=== PATIENT | female | born 1985 | race Caucasian/White ===

== ENCOUNTER 2021-03-14 18:05 | Inpatient (IN) | payer OTHER, SELFPAY ==
--- NOTE | ~2021-03-14 | XR_ITS ---
EXAMINATION: XR CHEST CLINICAL INFORMATION: Medical clearance. COMPARISON: None TECHNIQUE: 2 views of the chest were obtained. FINDINGS: No significant abnormality is noted involving the heart, lungs, mediastinum, bony thorax or soft tissues. XR/XR chest 2V IMPRESSION: Unremarkable examination.
[2021-03-14] MEDS: Benztropine Mesylate 1 MG TABLET PO (20:30)
[2021-03-14] MEDS: OXcarbazepine 300 MG TABLET PO (20:30)
[2021-03-14] MEDS: QUEtiapine Fumarate 100 MG TABLET PO (20:30)
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
[2021-03-14] MEDS: Bacitracin Oint 14 GM TUBE 1 APPL TOPICAL (22:12)
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
[2021-03-14 22:59] VITALS: BP 126/76; PULSE 80
[2021-03-14] MEDS: Doxazosin Mesylate 2 MG TABLET PO (22:59)
[2021-03-15] MEDS: hydrOXYzine HCL 50 MG TABLET PO ×2 (04:53→15:49)
[2021-03-15 05:45] VITALS: BP 134/87; PULSE 95; RESP 18; TEMP 36.4; O2SAT 98
[2021-03-15] MEDS: Omeprazole 20 MG CAPSULE.DR PO (06:11)
[2021-03-15] MEDS: LORazepam 0.5 MG TABLET PO (06:13)
[2021-03-15] MEDS: OXcarbazepine 300 MG TABLET PO ×2 (08:22→19:37)
[2021-03-15] MEDS: Venlafaxine HCl ER 150 MG CAP.ER.24H PO (08:22)
[2021-03-15 08:23] LABS: Estimated Average Glucose 82 mg/dL; Hemoglobin A1c % 4.5 %
[2021-03-15] MEDS: Benztropine Mesylate 1 MG TABLET PO ×2 (08:23→19:36)
[2021-03-15] MEDS: QUEtiapine Fumarate 100 MG TABLET PO ×3 (08:23→19:37)
[2021-03-15] MEDS: ARIPiprazole 20 MG TABLET PO (08:23)
[2021-03-15 08:29] LABS: Alanine Aminotransferase 28 U/L (0-31); Albumin Level 3.9 g/dL (3.5-5.0); Alkaline Phosphatase 81 U/L (39-117); Aspartate Amino Transferase 27 U/L (5-31); Bilirubin Direct 0.2 mg/dL (0.0-0.5); Bilirubin Total 0.5 mg/dL (0.0-1.0); Cholesterol 196 mg/dL; HDL Cholesterol 64 mg/dL; LDL Cholesterol Calculated 95 mg/dl; Total Protein 6.4 g/dL (6.5-8.0); Triglycerides 186 mg/dL
[2021-03-15 08:52] LABS: Free T4 (Free Thyroxine) 0.66 ng/dL (0.71-1.85); Thyroid Stimulating Hormone 1.14 uIU/mL (0.32-4.0)
[2021-03-15 09:08] LABS: Folate 12.3 ng/mL (> or = 4.0); Vitamin B12 342 pg/mL (200-900)
[2021-03-15] MEDS: Bacitracin Oint 14 GM TUBE 1 APPL TOPICAL ×2 (11:02→19:38)
[2021-03-15] MEDS: Ibuprofen 400 MG TABLET PO (17:01)
--- NOTE | 2021-03-15 17:20 | P.PNPSI_ITS ---
Subjective Subjective Date of Service: 03/15/21 Reason For Visit: Major Depressive Disorder Subjective Notes: Conditional Voluntary Healthcare Proxy: No Guardianship: No Medical Problems Affecting Mental Status: No Interim History: Safety is hard for me sometimes It can just happen. Pt forthcoming in discussing her depression. Reports sleep, appetite disruption. Discussed gastric bypass procedure and loss of ~70 lbs with resolution of MARIA TERESA and some sx of HTN. Discussed some increase in sx since this process and some decrease in sx-overall no marked increase or decrease. Review of grounding skills with use of prn medications to assist in SIBS mgt. Review of efficacy of low dose Risperdal-will offer prn for pt to trial to assess efficacy. Will begin medical clearance for ECT plan which pt reports has been significantly effective in the past. Medication Compliance: Yes Side effects from medications: No Attending Groups: Intermittent Review of Systems Acute medical concerns: No Medical Review of Systems: unchanged Review of Systems Reports behavioral changes Psychiatric: Reports abnormal sleep pattern, Reports anxiety, Reports behavioral changes, Reports change in appetite, Reports depression, Reports difficulty concentrating, Reports hopelessness, Reports irritability, Reports anhedonia, Reports mood swings, Reports panic attacks, Reports suicidal ideation and Repo rts other (SIBS-scratching, superficial cutting) Mental Status Exam Mental Status Exam Patient Appearance: Appropriate Patient Orientation: Person, Place, Time and Situation Level of Consciousness: Awake and Alert Patient Behavior: Appropriate, Guarded, Talkative, Cooperative, Suspicious, Anxious, Fearful and Good Eye Contact Mood Description: Depressed and Anxious Affect Description: Flat Patient Cognition Impaired: No Ability to Follow Directions: Good Speech Pattern: Spontaneous Speech and Soft-Spoken Memory Description: Episodic Impaired Hallucinations: None Delusions: Not Present Perceptual Disturbances: Depersonalization and Derealization Thought Process: Rumination and Goal Oriented (I know ECT has worked for me in the past.) Thought Content: positive for P[place], positive for Goal Oriented, positive for Perseveration and positive for Suicidal Ideation (SIBS) Depressive Symptoms: Increased Anxiety, Insomnia, Diff. Making Decisions, Difficulty Sleeping, Changes in Appetite, Significant Weight Loss (s/p bariatric surgery), Loss of Int. in Activity, Feelings of Worthlessness, Hopelessness, Unhappiness, Increased Fatigue, Low Self Esteem, Loss of Energy and Difficulty Concentrating Judgement: Fair Diagnostics Vital Signs (24Hr): Vital Signs - 24 hr 03/14/21 22:59 12/03/21 05:45 Temperature 97.6 F Pulse Rate 80 95 Respiratory Rate 18 Blood Pressure 126/76 134/87 Pulse Oximetry 98 Labs Labs: Laboratory Results - last 48 hr 03/15/21 03/15/21 03/15/21 07:48 07:48 07:48 Estimat Average Glucose 82 Hemoglobin A1c % 4.5 Magnesium 2.0 Total Bilirubin 0.5 Direct Bilirubin 0.2 AST 27 ALT 28 Alkaline Phosphatase 81 Total Protein 6.4 L Albumin 3.9 Triglycerides 186 Cholesterol 196 LDL Cholesterol, Calc 95 HDL Cholesterol 64 Vitamin B12 342 Folate 12.3 TSH 1.14 Free T4 0.66 L Medications Medications Current Medications Acetaminophen (Acetaminophen 325 Mg Tablet) 650 mg PO Q6H PRN PRN Reason: Headache/Pain Mild Scale (1-3) Al Hydroxide/Mg Hydroxide (Magnesium Hydrox/Alum Hydrox 30 Ml Oral.Susp) 30 ml PO Q6H PRN PRN Reason: Heartburn/Nausea Aripiprazole (Aripiprazole 20 Mg Tablet) 20 mg PO DAILY COUNTS INCLUDE 234 BEDS AT THE [facility] Last Admin: 03/15/21 08:23 Dose: 20 mg Documented by: Bacitracin (Bacitracin Oint 14 Gm Tube) 1 appl TOPICAL BID JEFFREY; Protocol Last Admin: 03/15/21 11:02 Dose: 1 appl Documented by: Benztropine Mesylate (Benztropine Mesylate 1 Mg Tablet) 1 mg PO BID JEFFREY Last Admin: 03/15/21 08:23 Dose: 1 mg Documented by: Calcium Carbonate (Calcium Carbonate 500 Mg Tablet) 500 mg PO TID PRN PRN Reason: heartburn Doxazosin Mesylate (Doxazosin Mesylate 2 Mg Tablet) 2 mg PO BEDTIME JEFFREY; Protocol Last Admin: 03/14/21 22:59 Dose: 2 mg Documented by: Hydroxyzine HCl (Hydroxyzine Hcl 50 Mg Tablet) 50 mg PO Q6H PRN PRN Reason: Anxiety Last Admin: 03/15/21 15:49 Dose: 50 mg Documented by: Ibuprofen (Ibuprofen 400 Mg Tablet) 400 mg PO Q8H PRN PRN Reason: mild-mod pain Last Admin: 03/15/21 17:01 Dose: 400 mg Documented by: Lorazepam (Lorazepam 0.5 Mg Tablet) 0.5 mg PO Q8H PRN PRN Reason: agitation Last Admin: 03/15/21 06:13 Dose: 0.5 mg Documented by: Magnesium Hydroxide (Milk Of Magnesia 30 Ml Oral.Susp) 30 ml PO DAILY PRN PRN Reason: Constipation Omeprazole (Omeprazole 20 Mg Capsule.Dr) 20 mg PO DAILY@0630 COUNTS INCLUDE 234 BEDS AT THE [facility] Last Admin: 03/15/21 06:11 Dose: 20 mg Documented by: Ondansetron HCl (Ondansetron Odt 4 Mg Tab.Rapdis) 4 mg TRANSLINGU Q8H PRN PRN Reason: nausea Oxcarbazepine (Oxcarbazepine 300 Mg Tablet) 300 mg PO BID COUNTS INCLUDE 234 BEDS AT THE [facility] Last Admin: 03/15/21 08:22 Dose: 300 mg Documented by: Quetiapine Fumarate (Quetiapine Fumarate 100 Mg Tablet) 100 mg PO TID COUNTS INCLUDE 234 BEDS AT THE [facility] Last Admin: 03/15/21 14:35 Dose: 100 mg Documented by: Quetiapine Fumarate (Quetiapine Fumarate 50 Mg Tablet) 50 mg PO Q6H PRN PRN Reason: agitation Trazodone HCl (Trazodone Hcl 100 Mg Tablet) 100 mg PO BEDTIME PRN PRN Reason: Insomnia Venlafaxine HCl (Venlafaxine Hcl Er 150 Mg Cap.Er.24h) 150 mg PO DAILY COUNTS INCLUDE 234 BEDS AT THE [facility] Last Admin: 03/15/21 08:22 Dose: 150 mg Documented by: Zinc Acetate/Diphenhydramine (Diphenhydramine Hcl 2 % Cream 28 Gm Tube) 1 appl TOPICAL BID PRN PRN Reason: Itching Allergies Allergies Allergy/AdvReac Type Severity Reaction Status Date / Time coconut Allergy Severe Anaphylaxis Verified 03/14/21 22:10 nut - unspecified [NUTS] Allergy Severe HIVES, Verified 03/14/21 23:05 DIFF BREATHING, THROAT SWELLS peanut Allergy Severe Anaphylaxis Verified 03/14/21 22:10 lactose [LACTOSE] Allergy Unknown ABD PAIN Verified 03/14/21 23:05 Assessment & Plan Assessment & Plan (1) MDD (major depressive disorder), recurrent severe, without psychosis: Status: Acute Code(s): F33.2 - Major depressive disorder, recurrent severe without psychotic features (2) TREY (generalized anxiety disorder): Status: Acute Code(s): F41.1 - Generalized anxiety disorder (3) Post traumatic stress disorder (PTSD): Status: Acute Code(s): F43.10 - Post-traumatic stress disorder, unspecified Assessment and Plan: 35 y.o. Who carries a dx of PTSD, MDD recurrent, TREY. She is a lateral transfer from [facility], admitted on 02/18/21 for depression, anxiety, and SI. Recent perceptual disturbances of 's image and voice, he from suicide 2 yr ago. Plan: Pt is here for ECT. Med reconciliation done. Pt reports she is supposed to be on doxazosin 4 mg at bedtime and 2 mg QD (this was her dose of prazosin and it was switched to doxazosin at [facility], however discharge listed doxazosin as 1 mg QHS). Will increase doxazosin to 2 mg QHS and defer to primary team for adjustments. Pt reports she is still on trileptal 300 mg BID but this was not on [facility] discharge. Pt also reports benefit on ativan 0.5 mg BID PRN for agitation, anxiety- will re-start, as this helps when pt has urges to self harm in context of anxiety and agitation. Monitor response to medications. Monitor for safety in the milieu. Discharge on stabilization. Patient seen. Chart reviewed. Discussed with team. Obtain collateral contact info?as needed 03/15/21: Increase Doxazosin to 4 mg HS. Monitor for SE. Pt asks to have 2 mg return to daytime dosing-will titrate gradually. Risperdal 0.25 mg bid prn grounding assist to manage SIBS. Medical clearance for ECT ordered-hospitalist, Chest xray, EKG, CMP, CBC Pt will move closer to nursing station as she has been struggling with her safety and working on a plan of care with team to remain safe while keeping as much of her own control as possible. I spent 45 minutes with the patient and/or on the patient floor today, greater than?50% of which was spent counseling/coordinating care. Patient educated on: diagnosis, medication risk/benefits, therapeutic strategies and medical condition (ECT clearance requirements) Informed Consent: understands Reason for contiued inpatient stay Substantial Risk for: harm to self, inability to function and rapid decompensation
[2021-03-15 19:36] VITALS: BP 123/80; PULSE 83
[2021-03-15] MEDS: Doxazosin Mesylate 2 MG TABLET 4 MG PO (19:36)
[2021-03-15] MEDS: traZODone HCL 100 MG TABLET PO (20:23)
[2021-03-16] MEDS: QUEtiapine Fumarate 100 MG TABLET PO ×3 (08:00→20:06)
[2021-03-16] MEDS: Omeprazole 20 MG CAPSULE.DR PO (08:00)
[2021-03-16] MEDS: Venlafaxine HCl ER 150 MG CAP.ER.24H PO (08:00)
[2021-03-16] MEDS: Benztropine Mesylate 1 MG TABLET PO ×2 (08:00→20:07)
[2021-03-16] MEDS: OXcarbazepine 300 MG TABLET PO ×2 (08:00→20:06)
[2021-03-16] MEDS: ARIPiprazole 20 MG TABLET PO (08:00)
[2021-03-16] MEDS: LORazepam 0.5 MG TABLET PO (08:00)
[2021-03-16 08:08] LABS: MANUAL DIFF FLAG NO
[2021-03-16 08:13] LABS: Basophils Absolute Auto 0.1 X10*3/uL (0.0-0.2); Basophils Percent Auto 0.7 % (0-2); Eosinophils Absolute Auto 0.2 X10*3/uL (0.0-0.4); Eosinophils Percent Auto 3.5 % (0-4); Hematocrit 45.8 % (37.0-47.0); Hemoglobin 14.8 g/dl (12.0-16.0); Imm Gran Abs Auto 0.01 X10*3/uL (0.00-0.03); Imm Gran Pct Auto 0.1 % (0.0-0.4); Lymphocytes Absolute Auto 2.6 X10*3/uL (1.2-4.9); Lymphocytes Percent Auto 37.8 % (20-40); Mean Corpuscular HGB Conc 32.3 g/dl (31.0-35.0); Mean Corpuscular Hemoglobin 30.4 pg (27.0-33.0); Mean Platelet Volume 10.6 fL (9.4-12.3); Monocytes Absolute Auto 0.6 X10*3/uL (0.1-1.2); Monocytes Percent Auto 8.9 % (2-11); Neutrophils Absolute Auto 3.4 x10*3/uL (2.0-8.3); Platelet Count 297 X10*3/uL (160-400); Red Blood Count 4.87 X10*6/uL (4.20-5.50); Red Cell Distribution Width 13.2 % (11.0-16.0); White Blood Count 6.9 X10*3/uL (4.8-10.8)
[2021-03-16 08:37] LABS: Alanine Aminotransferase 25 U/L (0-31); Alkaline Phosphatase 79 U/L (39-117); Anion Gap 13 (12-20); Aspartate Amino Transferase 25 U/L (5-31); Bilirubin Total 0.4 mg/dL (0.0-1.0); Blood Urea Nitrogen 7 mg/dL (9-16); Calcium 9.7 mg/dL (8.4-10.2); Carbon Dioxide 29 mmol/L (22-29); Chloride 106 mmol/L (96-108); Estimated Glomerular Filt Rate > 60; Glucose Random 85 mg/dL (60-115); Sodium 144 mmol/L (135-145); Total Protein 6.7 g/dL (6.5-8.0)
--- NOTE | 2021-03-16 10:32 | P.PNPSI_ITS ---
Subjective Subjective Date of Service: 03/16/21 Reason For Visit: Major Depressive Disorder Interim History: Patient seen and discussed with team. Patient evaluated this morning and upon interview she reports Im having a hard time. Says ECT is starting on Thursday. Endorses urges for self harm, recent superficial cutting, cut L arm and reopened L inner ankle cut, told the RN and had them put a bandaid on it. Reports PRN Ativan chills me out but she has not utilized PRN risperdal yet, which I advised her to trial. Sleep was okay last night. 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 Daytime energy is low. Per pt, I miss sheldon, felt the staff talked to her more, discussed that she may need time to adjust to a new milieu. Says she has been feeling really nauseous today, attributes this to my anxiety, as this has happened before, also says she vomited. Has PRN zofran, says it seemed to help. She endorses urges to self harm and says I feel like there?s a lot of opportunity to not be safe, however denies specific plans or intent and is willing to utilize PRNs.? Medication Compliance: Yes Side effects from medications: No Attending Groups: Yes Review of Systems Acute medical concerns: No Medical Review of Systems: unchanged Mental Status Exam Mental Status Exam Narrative: Patient Appearance:?Appropriate Patient Orientation:?Person, Place, Time and Situation Level of Consciousness:?Awake and Alert Patient Behavior:?Appropriate, Guarded, Talkative, Cooperative, Suspicious, Anxious, Fearful and Good Eye Contact Mood Description:?Depressed and Anxious Affect Description:?Flat Patient Cognition Impaired:?No Ability to Follow Directions:?Good Speech Pattern:?Spontaneous Speech and Soft-Spoken Memory Description:?Episodic Impaired Hallucinations:?None Delusions:?Not Present Perceptual Disturbances:?Depersonalization and Derealization Thought Process:?Rumination and Goal Oriented (I know ECT has worked for me in the past.) Thought Content:?positive for [place], positive for Goal Oriented, positive for Perseveration and positive for Suicidal Ideation (SIBS) Depressive Symptoms:?Increased Anxiety, Insomnia, Diff. Making Decisions, Difficulty Sleeping, Changes in Appetite, Significant Weight Loss (s/p bariatric surgery), Loss of Int. in Activity, Feelings of Worthlessness, Hopelessness, Unhappiness, Increased Fatigue, Low Self Esteem, Loss of Energy and Difficulty Concentrating Judgement:?Fair Diagnostics Vital Signs (24Hr): Vital Signs - 24 hr 03/16/21 19:45 03/16/21 20:06 Temperature 97.4 F Pulse Rate 100 100 Blood Pressure 112/72 112/72 Pulse Oximetry 100 Labs Results: 03/16/21 07:51 03/16/21 07:51 Labs: Laboratory Results - last 48 hr 03/15/21 03/15/21 03/16/21 07:48 07:48 07:51 WBC 6.9 RBC 4.87 Hgb 14.8 Hct 45.8 MCV 94.0 MCH 30.4 MCHC 32.3 RDW 13.2 Plt Count 297 MPV 10.6 Immature Gran % (Auto) 0.1 Neut % (Auto) 49.0 Lymph % (Auto) 37.8 [place] % (Auto) 8.9 Eos % (Auto) 3.5 Baso % (Auto) 0.7 Lymph # (Auto) 2.6 [place] # (Auto) 0.6 Eos # (Auto) 0.2 Baso # (Auto) 0.1 Abs Immat Gran (auto) 0.01 Absolute Neuts (auto) 3.4 Absolute Nucleated RBC 0.000 Nucleated RBC % (auto) 0.0 Sodium Potassium Chloride Carbon Dioxide Anion Gap BUN Creatinine Estim Creat Clear Calc Estimated GFR Random Glucose Calcium Total Bilirubin AST ALT Alkaline Phosphatase Total Protein Albumin Vitamin B12 342 Folate 12.3 TSH 1.14 Free T4 0.66 L 03/16/21 07:51 WBC RBC Hgb Hct MCV MCH MCHC RDW Plt Count MPV Immature Gran % (Auto) Neut % (Auto) Lymph % (Auto) [place] % (Auto) Eos % (Auto) Baso % (Auto) Lymph # (Auto) [place] # (Auto) Eos # (Auto) Baso # (Auto) Abs Immat Gran (auto) Absolute Neuts (auto) Absolute Nucleated RBC Nucleated RBC % (auto) Sodium 144 Potassium 4.0 Chloride 106 Carbon Dioxide 29 Anion Gap 13 BUN 7 L Creatinine 0.82 Estim Creat Clear Calc TNP Estimated GFR > 60 Random Glucose 85 Calcium 9.7 Total Bilirubin 0.4 AST 25 ALT 25 Alkaline Phosphatase 79 Total Protein 6.7 Albumin 4.0 Vitamin B12 Folate TSH Free T4 Imaging Radiology Impressions: ITS Impressions Chest X-Ray 03/15/21 19:02 IMPRESSION: Unremarkable examination. Medications Medications Current Medications Acetaminophen (Acetaminophen 325 Mg Tablet) 650 mg PO Q6H PRN PRN Reason: Headache/Pain Mild Scale (1-3) Last Admin: 03/16/21 20:08 Dose: 650 mg Documented by: Al Hydroxide/Mg Hydroxide (Magnesium Hydrox/Alum Hydrox 30 Ml Oral.Susp) 30 ml PO Q6H PRN PRN Reason: Heartburn/Nausea Aripiprazole (Aripiprazole 20 Mg Tablet) 20 mg PO DAILY [facility] Last Admin: 03/16/21 08:00 Dose: 20 mg Documented by: Bacitracin (Bacitracin Oint 14 Gm Tube) 1 appl TOPICAL BID [facility]; Protocol Last Admin: 03/16/21 22:03 Dose: Not Given Documented by: Benztropine Mesylate (Benztropine Mesylate 1 Mg Tablet) 1 mg PO BID [facility] Last Admin: 03/16/21 20:07 Dose: 1 mg Documented by: Calcium Carbonate (Calcium Carbonate 500 Mg Tablet) 500 mg PO TID PRN PRN Reason: heartburn Doxazosin Mesylate (Doxazosin Mesylate 2 Mg Tablet) 4 mg PO BEDTIME [facility]; Protocol Last Admin: 03/16/21 20:06 Dose: 4 mg Documented by: Hydroxyzine HCl (Hydroxyzine Hcl 50 Mg Tablet) 50 mg PO Q6H PRN PRN Reason: Anxiety Last Admin: 03/16/21 18:54 Dose: 50 mg Documented by: Ibuprofen (Ibuprofen 400 Mg Tablet) 400 mg PO Q8H PRN PRN Reason: mild-mod pain Last Admin: 03/16/21 13:23 Dose: 400 mg Documented by: Lorazepam (Lorazepam 0.5 Mg Tablet) 0.5 mg PO Q8H PRN PRN Reason: agitation Last Admin: 03/17/21 06:04 Dose: 0.5 mg Documented by: Magnesium Hydroxide (Milk Of Magnesia 30 Ml Oral.Susp) 30 ml PO DAILY PRN PRN Reason: Constipation Omeprazole (Omeprazole 20 Mg Capsule.Dr) 20 mg PO DAILY@0630 [facility] Last Admin: 03/17/21 06:04 Dose: 20 mg Documented by: Ondansetron HCl (Ondansetron Odt 4 Mg Tab.Rapdis) 4 mg TRANSLINGU Q8H PRN PRN Reason: nausea Last Admin: 03/16/21 14:22 Dose: 4 mg Documented by: Oxcarbazepine (Oxcarbazepine 300 Mg Tablet) 300 mg PO BID [facility] Last Admin: 03/16/21 20:06 Dose: 300 mg Documented by: Quetiapine Fumarate (Quetiapine Fumarate 100 Mg Tablet) 100 mg PO TID [facility] Last Admin: 03/16/21 20:06 Dose: 100 mg Documented by: Quetiapine Fumarate (Quetiapine Fumarate 50 Mg Tablet) 50 mg PO Q6H PRN PRN Reason: agitation Risperidone (Risperidone 0.25 Mg Tablet) 0.25 mg PO BID PRN PRN Reason: assistance with grounding Last Admin: 03/16/21 16:08 Dose: 0.25 mg Documented by: Trazodone HCl (Trazodone Hcl 100 Mg Tablet) 100 mg PO BEDTIME PRN PRN Reason: Insomnia Last Admin: 03/16/21 20:13 Dose: 100 mg Documented by: Venlafaxine HCl (Venlafaxine Hcl Er 150 Mg Cap.Er.24h) 150 mg PO DAILY [facility] Last Admin: 03/16/21 08:00 Dose: 150 mg Documented by: Zinc Acetate/Diphenhydramine (Diphenhydramine Hcl 2 % Cream 28 Gm Tube) 1 appl TOPICAL BID PRN PRN Reason: Itching Allergies Allergies Allergy/AdvReac Type Severity Reaction Status Date / Time coconut Allergy Severe Anaphylaxis Verified 03/14/21 22:10 nut - unspecified [NUTS] Allergy Severe HIVES, Verified 03/14/21 23:05 DIFF BREATHING, THROAT SWELLS peanut Allergy Severe Anaphylaxis Verified 03/14/21 22:10 Assessment & Plan Assessment & Plan (1) TREY (generalized anxiety disorder): Status: Acute Code(s): F41.1 - Generalized anxiety disorder (2) MDD (major depressive disorder), recurrent severe, without psychosis: Status: Acute Code(s): F33.2 - Major depressive disorder, recurrent severe without psychotic features Assessment and Plan: 35 y.o. Who carries a dx of PTSD, MDD recurrent, TREY. She is a lateral transfer from [facility], admitted on 02/18/21 for depression, anxiety, and SI. Recent perceptual disturbances of 's image and voice, he from suicide 2 yr ago. Plan: Pt is here for ECT. Med reconciliation done. Pt reports she is supposed to be on doxazosin 4 mg at bedtime and 2 mg QD (this was her dose of prazosin and it was switched to doxazosin at [facility], however discharge listed doxazosin as 1 mg QHS). Will increase doxazosin to 2 mg QHS and defer to primary team for adjustments. Pt reports she is still on trileptal 300 mg BID but this was not on [facility] discharge. Pt also reports benefit on ativan 0.5 mg BID PRN for agitation, anxiety- will re-start, as this helps when pt has urges to self harm in context of anxiety and agitation. Monitor response to medications. Monitor for safety in the milieu. Discharge on stabilization. Patient seen. Chart reviewed. Discussed with team. Obtain collateral contact info?as needed 03/15/21: Increase Doxazosin to 4 mg HS. Monitor for SE. Pt asks to have 2 mg return to daytime dosing-will titrate gradually. Risperdal 0.25 mg bid prn grounding assist to manage SIBS. Medical clearance for ECT ordered-hospitalist, Chest xray, EKG, CMP, CBC Pt will move closer to nursing station as she has been struggling with her safety and working on a plan of care with team to remain safe while keeping as much of her own control as possible. Weekend Coverage: Pt continues to endorse urges for self harm and had incident of superficial cutting this morning, told staff physical therapist after the event and had it dressed. Reminded pt that she has PRN riserpdal ordered and pt is willing to utilize. Will monitor for benefit. I spent minutes with the patient and/or on the patient floor today, greater than?50% of which was spent counseling/coordinating care. Reason for contiued inpatient stay Substantial Risk for: harm to self and med/psych decompensation
[2021-03-16] MEDS: hydrOXYzine HCL 50 MG TABLET PO ×2 (11:37→18:54)
[2021-03-16] MEDS: Bacitracin Oint 14 GM TUBE 1 APPL TOPICAL (11:38)
[2021-03-16] MEDS: Ibuprofen 400 MG TABLET PO (13:23)
[2021-03-16] MEDS: Ondansetron ODT 4 MG TAB.RAPDIS TRANSLINGU (14:22)
[2021-03-16] MEDS: risperiDONE 0.25 MG TABLET PO (16:08)
--- NOTE | 2021-03-16 16:21 | HO.HSGERICON ---
History of Present Illness Data of Consult Service Date: 03/16/21 Requesting physician: Elaine Mckeon Primary Care Provider: Unknown Physician HPI Reason for consult: preop eval for ECT This is a 35-year-old female with history of anxiety, depression, PTSD admitted to for ECT. The hospitalists were asked to see her in consultation for preop evaluation in preparation for her ECT. Patient states she underwent ECT treatments previously in 2017. At that time she did have some memory loss, no other adverse outcomes. She denies any history of heart or lung disease. She denies any chest pain or shortness of breath with her ADLs. She has had no adverse reaction to anesthesia, denies history of seizures. She is interested in pursuing ECT treatments in the management of her anxiety/depression. Review of Systems Review of Systems: Yes all other systems are reviewed and are negative Constitutional: Constitutional: Denies chills and Denies fever(s) Cardiovascular: Cardiovascular: Denies chest pain, Denies palpitations, Denies dyspnea and Denies dyspnea on exertion Respiratory: Respiratory: Denies cough, Denies dyspnea and Denies dyspnea on exertion Gastrointestinal: Gastrointestinal: Denies abdominal pain and Reports nausea Endocrine: Endocrine: Denies palpitations [facility] Medical History (Updated 03/16/21 @ 16:28 by KAYDEN Jeter) TREY (generalized anxiety disorder) GERD (gastroesophageal reflux disease) HTN (hypertension) MDD (major depressive disorder), recurrent severe, without psychosis MARIA TERESA (obstructive sleep apnea) Post traumatic stress disorder (PTSD) Functional capacity: independent ambulation Family History (Updated 03/16/21 @ 16:26 by KAYDEN Jeter) Mother Heart disease Surgical History (Updated 03/16/21 @ 16:25 by KAYDEN Jeter) H/O gastric bypass Hx of cholecystectomy Social History (Updated 03/16/21 @ 16:26 by KAYDEN Jeter) Household Members: Other Household Members Other:: 17 yo daughter Housing: Apartment Do you presently have visiting nurse or other home services: No Alcohol intake: current Alcohol intake frequency: holidays/special occasions only Patient Tobacco Use Status: Never used Tobacco Use of substances other than those prescribed or required for medical reasons: No Currently Displaying Signs/Symptoms of Drug Intoxication Withdrawal: No Have you been hit, kicked, punched, or otherwise hurt by someone within the past year? If so, by whom?: No Do you feel safe in your current relationship?: Yes Is there a partner from a previous relationship who is making you feel unsafe now?: No Are you made to feel afraid or neglected: No Advance Directives: No Advance Directives Information Provided: No Advance Directives on File: No Do you have thoughts of harming others: None Do you have a plan to hurt others: No Plan Recently lost weight without trying: No Eating poorly because of decreased appetite: No Nutrition Risks: No Nutritional Risk Patient : No : No Poor oral hygiene: No service: No Sexual orientation: Did not discuss Meds Allergies Allergy/AdvReac Type Severity Reaction Status Date / Time coconut Allergy Severe Anaphylaxis Verified 03/14/21 22:10 nut - unspecified [NUTS] Allergy Severe HIVES, Verified 03/14/21 23:05 DIFF BREATHING, THROAT SWELLS peanut Allergy Severe Anaphylaxis Verified 03/14/21 22:10 Active Medications: Current Medications Acetaminophen (Acetaminophen 325 Mg Tablet) 650 mg PO Q6H PRN PRN Reason: Headache/Pain Mild Scale (1-3) Al Hydroxide/Mg Hydroxide (Magnesium Hydrox/Alum Hydrox 30 Ml Oral.Susp) 30 ml PO Q6H PRN PRN Reason: Heartburn/Nausea Aripiprazole (Aripiprazole 20 Mg Tablet) 20 mg PO DAILY [facility] Last Admin: 03/16/21 08:00 Dose: 20 mg Documented by: Bacitracin (Bacitracin Oint 14 Gm Tube) 1 appl TOPICAL BID [facility]; Protocol Last Admin: 03/16/21 11:38 Dose: 1 appl Documented by: Benztropine Mesylate (Benztropine Mesylate 1 Mg Tablet) 1 mg PO BID [facility] Last Admin: 03/16/21 08:00 Dose: 1 mg Documented by: Calcium Carbonate (Calcium Carbonate 500 Mg Tablet) 500 mg PO TID PRN PRN Reason: heartburn Doxazosin Mesylate (Doxazosin Mesylate 2 Mg Tablet) 4 mg PO BEDTIME [facility]; Protocol Last Admin: 03/15/21 19:36 Dose: 4 mg Documented by: Hydroxyzine HCl (Hydroxyzine Hcl 50 Mg Tablet) 50 mg PO Q6H PRN PRN Reason: Anxiety Last Admin: 03/16/21 11:37 Dose: 50 mg Documented by: Ibuprofen (Ibuprofen 400 Mg Tablet) 400 mg PO Q8H PRN PRN Reason: mild-mod pain Last Admin: 03/16/21 13:23 Dose: 400 mg Documented by: Lorazepam (Lorazepam 0.5 Mg Tablet) 0.5 mg PO Q8H PRN PRN Reason: agitation Last Admin: 03/16/21 08:00 Dose: 0.5 mg Documented by: Magnesium Hydroxide (Milk Of Magnesia 30 Ml Oral.Susp) 30 ml PO DAILY PRN PRN Reason: Constipation Omeprazole (Omeprazole 20 Mg Capsule.Dr) 20 mg PO DAILY@0630 [facility] Last Admin: 03/16/21 08:00 Dose: 20 mg Documented by: Ondansetron HCl (Ondansetron Odt 4 Mg Tab.Rapdis) 4 mg TRANSLINGU Q8H PRN PRN Reason: nausea Last Admin: 03/16/21 14:22 Dose: 4 mg Documented by: Oxcarbazepine (Oxcarbazepine 300 Mg Tablet) 300 mg PO BID [facility] Last Admin: 03/16/21 08:00 Dose: 300 mg Documented by: Quetiapine Fumarate (Quetiapine Fumarate 100 Mg Tablet) 100 mg PO TID [facility] Last Admin: 03/16/21 16:08 Dose: 100 mg Documented by: Quetiapine Fumarate (Quetiapine Fumarate 50 Mg Tablet) 50 mg PO Q6H PRN PRN Reason: agitation Risperidone (Risperidone 0.25 Mg Tablet) 0.25 mg PO BID PRN PRN Reason: assistance with grounding Last Admin: 03/16/21 16:08 Dose: 0.25 mg Documented by: Trazodone HCl (Trazodone Hcl 100 Mg Tablet) 100 mg PO BEDTIME PRN PRN Reason: Insomnia Last Admin: 03/15/21 20:23 Dose: 100 mg Documented by: Venlafaxine HCl (Venlafaxine Hcl Er 150 Mg Cap.Er.24h) 150 mg PO DAILY [facility] Last Admin: 03/16/21 08:00 Dose: 150 mg Documented by: Zinc Acetate/Diphenhydramine (Diphenhydramine Hcl 2 % Cream 28 Gm Tube) 1 appl TOPICAL BID PRN PRN Reason: Itching Home Medications Medication Instructions Recorded Confirmed Last Taken Type trazodone 100 mg PO BEDTIME 03/15/21 03/15/21 Unknown History Results Labs CBC and Chem 7: 03/16/21 07:51 03/16/21 07:51 Labs: Laboratory Results - last 24 hr 03/16/21 03/16/21 07:51 07:51 MCV 94.0 MCH 30.4 MCHC 32.3 RDW 13.2 Plt Count 297 MPV 10.6 Immature Gran % (Auto) 0.1 Neut % (Auto) 49.0 Lymph % (Auto) 37.8 [place] % (Auto) 8.9 Eos % (Auto) 3.5 Baso % (Auto) 0.7 Lymph # (Auto) 2.6 [place] # (Auto) 0.6 Eos # (Auto) 0.2 Baso # (Auto) 0.1 Abs Immat Gran (auto) 0.01 Absolute Neuts (auto) 3.4 Absolute Nucleated RBC 0.000 Nucleated RBC % (auto) 0.0 Anion Gap 13 Estim Creat Clear Calc TNP Estimated GFR > 60 Random Glucose 85 Calcium 9.7 Total Bilirubin 0.4 AST 25 ALT 25 Alkaline Phosphatase 79 Total Protein 6.7 Albumin 4.0 Imaging Radiologist's Impressions: Impressions Chest X-Ray 03/15/21 19:02 IMPRESSION: Unremarkable examination. Assessment and Plan (1) TREY (generalized anxiety disorder): Status: Acute (2) MDD (major depressive disorder), recurrent severe, without psychosis: Status: Acute This is a 35-year-old female with history of anxiety, depression, PTSD, morbid obesity status post gastric bypass surgery who presents to for ECT Labs reviewed. No history of cardiopulmonary disease, seizure or adverse outcomes with anesthesia. There is no obvious contraindication to proceeding with ECT if no abnormalities seen on EKG. EKG ordered, will review when completed. Thank you for allowing us to participate in the care of this patient. we will follow along with you attending: dr. ramírez Physical Exam Vital Signs: Last Vital Signs Temp 97.6 F 03/15/21 05:45 Pulse 83 03/15/21 19:36 Resp 18 03/15/21 05:45 BP 123/80 03/15/21 19:36 Pulse Ox 98 03/15/21 05:45 Const Nutritional Appearance: well nourished Orientation/consciousness: patient oriented x3 HENMT Head: Yes normocephalic and Yes atraumatic Eyes Sclerae: sclerae normal Resp Effort & Inspection: normal respiratory effort and no respiratory distress Auscultation: clear to auscultation bilaterally Cardio Rate: regular rate Rhythm: regular rhythm Neuro General: patient oriented x3 Cranial nerves: Yes CN's II-XII intact bilaterally and Yes Bilaterally intact EOM present Extrem General: Yes no pedal edema Psych Attitude: cooperative
[2021-03-16 19:45] VITALS: BP 112/72; PULSE 100; TEMP 36.3; O2SAT 100
[2021-03-16 20:06] VITALS: BP 112/72; PULSE 100
[2021-03-16] MEDS: Doxazosin Mesylate 2 MG TABLET 4 MG PO (20:06)
[2021-03-16] MEDS: Acetaminophen 325 MG TABLET 650 MG PO (20:08)
[2021-03-16] MEDS: traZODone HCL 100 MG TABLET PO (20:13)
--- NOTE | 2021-03-17 | ECG_ITS ---
Test Reason : Medical clearance for ECT Blood Pressure : / mmHG Vent. Rate : 083 BPM Atrial Rate : 083 BPM P-R Int : 136 ms QRS Dur : 068 ms QT Int : 368 ms P-R-T Axes : 054 034 048 degrees QTc Int : 432 ms Normal sinus rhythm Normal ECG When compared to the previous EKG of No significant changes seen Referred By: Elaine Mckeon Electronically Signed By:Campos Jonas
[2021-03-17] MEDS: LORazepam 0.5 MG TABLET PO (06:04)
[2021-03-17] MEDS: Omeprazole 20 MG CAPSULE.DR PO (06:04)
[2021-03-17] MEDS: Venlafaxine HCl ER 150 MG CAP.ER.24H PO (09:53)
[2021-03-17] MEDS: ARIPiprazole 20 MG TABLET PO (09:53)
[2021-03-17] MEDS: Benztropine Mesylate 1 MG TABLET PO ×2 (09:53→22:20)
[2021-03-17] MEDS: risperiDONE 0.25 MG TABLET PO ×2 (09:53→12:06)
[2021-03-17] MEDS: QUEtiapine Fumarate 100 MG TABLET PO ×3 (09:53→22:19)
[2021-03-17] MEDS: OXcarbazepine 300 MG TABLET PO ×2 (09:53→22:20)
[2021-03-17] MEDS: Ondansetron ODT 4 MG TAB.RAPDIS TRANSLINGU ×2 (13:58→22:35)
--- NOTE | 2021-03-17 14:34 | HO.PSYCHPN ---
Subjective Subjective Date of Service: 03/17/21 Reason For Visit: Major Depressive Disorder Interim History: Patient seen and discussed with team. Patient evaluated this morning and upon interview she reports her sx of akathesia have improved on Cogentin. She was found lying down in bed, lights off, says she feels bummed, unable to identify precipitating fx, says I just didnt wanna wake up today. Says her sleep was fine, has nightmares, but on doxasozin they are not as bad or vivid. Continues to endorse nausea, says her stomach is in knots, has been drinking fluids, had a couple bites of toast. Has PRN zofran. Pt reports I started to hear voices again, started just a little while ago, says the voice called her name, keeps telling me to hurt myself, says the voice is her nurse's voice. Reports PRN riserpdal is helping. Pt disclosed urges to self harm, has plans of cutting herself with a staple, was able to tell me where that she had a staple on her window sill, this was confiscated and pt was provided positive feedback for her disclosure. Discussed coping skills and reviewed PRN medications available. Has ECT scheduled for tomorrow. Medication Compliance: Yes Side effects from medications: No Attending Groups: Intermittent Mental Status Exam Mental Status Exam Narrative: Patient Appearance:?Appropriate Patient Orientation:?Person, Place, Time and Situation Level of Consciousness:?Awake and Alert Patient Behavior:?Appropriate, Guarded, Talkative, Cooperative, Suspicious, Anxious, Fearful and Good Eye Contact Mood Description:?Depressed and Anxious Affect Description:?Flat Patient Cognition Impaired:?No Ability to Follow Directions:?Good Speech Pattern:?Spontaneous Speech and Soft-Spoken Memory Description:?Episodic Impaired Hallucinations:?None Delusions:?Not Present Perceptual Disturbances:?Depersonalization and Derealization Thought Process:?Rumination and Goal Oriented (I know ECT has worked for me in the past.) Thought Content:?positive for [place], positive for Goal Oriented, positive for Perseveration and positive for Suicidal Ideation (SIBS) Depressive Symptoms:?Increased Anxiety, Insomnia, Diff. Making Decisions, Difficulty Sleeping, Changes in Appetite, Significant Weight Loss (s/p bariatric surgery), Loss of Int. in Activity, Feelings of Worthlessness, Hopelessness, Unhappiness, Increased Fatigue, Low Self Esteem, Loss of Energy and Difficulty Concentrating Judgment:?Fair Diagnostics Vital Signs (24Hr): Vital Signs - 24 hr 03/16/21 19:45 03/16/21 20:06 Temperature 97.4 F Pulse Rate 100 100 Blood Pressure 112/72 112/72 Pulse Oximetry 100 Labs Results: 03/16/21 07:51 03/16/21 07:51 Labs: Laboratory Results - last 48 hr 03/16/21 03/16/21 07:51 07:51 WBC 6.9 RBC 4.87 Hgb 14.8 Hct 45.8 MCV 94.0 MCH 30.4 MCHC 32.3 RDW 13.2 Plt Count 297 MPV 10.6 Immature Gran % (Auto) 0.1 Neut % (Auto) 49.0 Lymph % (Auto) 37.8 [place] % (Auto) 8.9 Eos % (Auto) 3.5 Baso % (Auto) 0.7 Lymph # (Auto) 2.6 [place] # (Auto) 0.6 Eos # (Auto) 0.2 Baso # (Auto) 0.1 Abs Immat Gran (auto) 0.01 Absolute Neuts (auto) 3.4 Absolute Nucleated RBC 0.000 Nucleated RBC % (auto) 0.0 Sodium 144 Potassium 4.0 Chloride 106 Carbon Dioxide 29 Anion Gap 13 BUN 7 L Creatinine 0.82 Estim Creat Clear Calc TNP Estimated GFR > 60 Random Glucose 85 Calcium 9.7 Total Bilirubin 0.4 AST 25 ALT 25 Alkaline Phosphatase 79 Total Protein 6.7 Albumin 4.0 Imaging Radiology Impressions: ITS Impressions Chest X-Ray 03/15/21 19:02 IMPRESSION: Unremarkable examination. Medications Medications Current Medications Acetaminophen (Acetaminophen 325 Mg Tablet) 650 mg PO Q6H PRN PRN Reason: Headache/Pain Mild Scale (1-3) Last Admin: 03/16/21 20:08 Dose: 650 mg Documented by: Al Hydroxide/Mg Hydroxide (Magnesium Hydrox/Alum Hydrox 30 Ml Oral.Susp) 30 ml PO Q6H PRN PRN Reason: Heartburn/Nausea Aripiprazole (Aripiprazole 20 Mg Tablet) 20 mg PO DAILY [facility] Last Admin: 03/17/21 09:53 Dose: 20 mg Documented by: Bacitracin (Bacitracin Oint 14 Gm Tube) 1 appl TOPICAL BID [facility]; Protocol Last Admin: 03/17/21 12:36 Dose: Not Given Documented by: Benztropine Mesylate (Benztropine Mesylate 1 Mg Tablet) 1 mg PO BID [facility] Last Admin: 03/17/21 09:53 Dose: 1 mg Documented by: Calcium Carbonate (Calcium Carbonate 500 Mg Tablet) 500 mg PO TID PRN PRN Reason: heartburn Doxazosin Mesylate (Doxazosin Mesylate 2 Mg Tablet) 4 mg PO BEDTIME [facility]; Protocol Last Admin: 03/16/21 20:06 Dose: 4 mg Documented by: Hydroxyzine HCl (Hydroxyzine Hcl 50 Mg Tablet) 50 mg PO Q6H PRN PRN Reason: Anxiety Last Admin: 03/16/21 18:54 Dose: 50 mg Documented by: Ibuprofen (Ibuprofen 400 Mg Tablet) 400 mg PO Q8H PRN PRN Reason: mild-mod pain Last Admin: 03/16/21 13:23 Dose: 400 mg Documented by: Lorazepam (Lorazepam 0.5 Mg Tablet) 0.5 mg PO Q8H PRN PRN Reason: agitation Last Admin: 03/17/21 06:04 Dose: 0.5 mg Documented by: Magnesium Hydroxide (Milk Of Magnesia 30 Ml Oral.Susp) 30 ml PO DAILY PRN PRN Reason: Constipation Omeprazole (Omeprazole 20 Mg Capsule.Dr) 20 mg PO DAILY@0630 [facility] Last Admin: 03/17/21 06:04 Dose: 20 mg Documented by: Ondansetron HCl (Ondansetron Odt 4 Mg Tab.Rapdis) 4 mg TRANSLINGU Q8H PRN PRN Reason: nausea Last Admin: 03/17/21 13:58 Dose: 4 mg Documented by: Oxcarbazepine (Oxcarbazepine 300 Mg Tablet) 300 mg PO BID [facility] Last Admin: 03/17/21 09:53 Dose: 300 mg Documented by: Quetiapine Fumarate (Quetiapine Fumarate 100 Mg Tablet) 100 mg PO TID [facility] Last Admin: 03/17/21 09:53 Dose: 100 mg Documented by: Quetiapine Fumarate (Quetiapine Fumarate 50 Mg Tablet) 50 mg PO Q6H PRN PRN Reason: agitation Risperidone (Risperidone 0.25 Mg Tablet) 0.25 mg PO Q4H PRN PRN Reason: assistance with grounding Last Admin: 03/17/21 12:06 Dose: 0.25 mg Documented by: Trazodone HCl (Trazodone Hcl 100 Mg Tablet) 100 mg PO BEDTIME PRN PRN Reason: Insomnia Last Admin: 03/16/21 20:13 Dose: 100 mg Documented by: Venlafaxine HCl (Venlafaxine Hcl Er 150 Mg Cap.Er.24h) 150 mg PO DAILY [facility] Last Admin: 03/17/21 09:53 Dose: 150 mg Documented by: Zinc Acetate/Diphenhydramine (Diphenhydramine Hcl 2 % Cream 28 Gm Tube) 1 appl TOPICAL BID PRN PRN Reason: Itching Allergies Allergies Allergy/AdvReac Type Severity Reaction Status Date / Time coconut Allergy Severe Anaphylaxis Verified 03/14/21 22:10 nut - unspecified [NUTS] Allergy Severe HIVES, Verified 03/14/21 23:05 DIFF BREATHING, THROAT SWELLS peanut Allergy Severe Anaphylaxis Verified 03/14/21 22:10 Assessment & Plan Assessment & Plan (1) TREY (generalized anxiety disorder): Status: Acute Code(s): F41.1 - Generalized anxiety disorder (2) MDD (major depressive disorder), recurrent severe, without psychosis: Status: Acute Code(s): F33.2 - Major depressive disorder, recurrent severe without psychotic features Assessment and Plan: 35 y.o. Who carries a dx of PTSD, MDD recurrent, TREY. She is a lateral transfer from [facility], admitted on 02/18/21 for depression, anxiety, and SI. Recent perceptual disturbances of 's image and voice, he from suicide 2 yr ago. Plan: Pt is here for ECT. Med reconciliation done. Pt reports she is supposed to be on doxazosin 4 mg at bedtime and 2 mg QD (this was her dose of prazosin and it was switched to doxazosin at [facility], however discharge listed doxazosin as 1 mg QHS). Will increase doxazosin to 2 mg QHS and defer to primary team for adjustments. Pt reports she is still on trileptal 300 mg BID but this was not on [facility] discharge. Pt also reports benefit on ativan 0.5 mg BID PRN for agitation, anxiety- will re-start, as this helps when pt has urges to self harm in context of anxiety and agitation. Monitor response to medications. Monitor for safety in the milieu. Discharge on stabilization. Patient seen. Chart reviewed. Discussed with team. Obtain collateral contact info?as needed 03/15/21: Increase Doxazosin to 4 mg HS. Monitor for SE. Pt asks to have 2 mg return to daytime dosing-will titrate gradually. Risperdal 0.25 mg bid prn grounding assist to manage SIBS. Medical clearance for ECT ordered-hospitalist, Chest xray, EKG, CMP, CBC Pt will move closer to nursing station as she has been struggling with her safety and working on a plan of care with team to remain safe while keeping as much of her own control as possible. Weekend Coverage: 03/16- Pt continues to endorse urges for self harm and had incident of superficial cutting this morning, told staff physical therapy assistant after the event and had it dressed. Reminded pt that she has PRN riserpdal ordered and pt is willing to utilize. Will monitor for benefit. 03/17-Pt discloses urges and plan to cut herself with a staple, had this in possession and was able to give this up. Also disclosed command AH. Reports positive benefit on PRN risperdal, will increase to Q4H PRN. Encouraged coping skills. NPO orders to start at midnight for ECT tomorrow. I spent minutes with the patient and/or on the patient floor today, greater than?50% of which was spent counseling/coordinating care. Reason for contiued inpatient stay Substantial Risk for: harm to self and med/psych decompensation
[2021-03-17] MEDS: Ibuprofen 400 MG TABLET PO (14:59)
[2021-03-17 18:00] VITALS: BP 131/77; PULSE 102; TEMP 36.3; O2SAT 100
[2021-03-17] MEDS: hydrOXYzine HCL 50 MG TABLET PO (18:44)
[2021-03-17 22:20] VITALS: BP 131/77; PULSE 102
[2021-03-17] MEDS: Doxazosin Mesylate 2 MG TABLET 4 MG PO (22:20)
--- NOTE | 2021-03-17 22:24 | PM.EVENT ---
Event Note Date of Service: 03/17/21 Event Note: EKG done for the purposes of a CT shows normal sinus rhythm with no EKG ST T wave abnormalities. There are no evident contraindication to proceed with ECT.
[2021-03-17] MEDS: Bacitracin Oint 14 GM TUBE 1 APPL TOPICAL (22:28)
[2021-03-17] MEDS: traZODone HCL 100 MG TABLET PO (23:49)
[2021-03-18] VITALS (12 sets, daily range): BP systolic 106–144; BP diastolic 56–95; PULSE 68–99; RESP 16–18; TEMP 36.2–37.1; O2SAT 92–100; BMI 33.8
[2021-03-18] MEDS: risperiDONE 0.25 MG TABLET PO (01:52)
[2021-03-18] MEDS: hydrOXYzine HCL 50 MG TABLET PO (05:07)
--- NOTE | 2021-03-18 05:17 | PC.NURSE ---
Pt. reported positive AH of voices telling her to hurt herself. Pt. was medicated with risperidone 0.25mg at 0152. Pt. went to the bathroom and was asked by this sports writer to open the door around 0455 to monitor for safety. Pt. reluctantly opened the door. Pt. returned to bed and reported she needed a bandaid for her wrist. RN witnessed three new superficial scratches the left inner forearm. The uppermost scrape had a scant trace of bleeding. Pt. reported having just scraped the area in the bathroom but would not reported what she used. The scrapes were covered with bandaids. The bathroom door was locked for safety. VS obtained 98.5, 139/86 LUE, 97, 99% on RA, 18. Pt. does not contract for safety at this time. Kallie Schilling NP notified. RN to sit with pt. at this time.
--- NOTE | 2021-03-18 12:53 | HO.ANESPROP2 ---
[facility] Active Problems Active Problems: All Active Problems (Updated 03/16/21 @ 16:28 by KAYDEN Jeter) MDD (major depressive disorder), recurrent severe, without psychosis (Acute) TREY (generalized anxiety disorder) (Acute) Past Medical History Medical History (Updated 03/16/21 @ 16:28 by KAYDEN Jeter) TREY (generalized anxiety disorder) GERD (gastroesophageal reflux disease) HTN (hypertension) MDD (major depressive disorder), recurrent severe, without psychosis MARIA TERESA (obstructive sleep apnea) Post traumatic stress disorder (PTSD) Functional capacity: independent ambulation Family History Family History (Updated 03/16/21 @ 16:26 by KAYDEN Jeter) Mother Heart disease Family history of problems with anesthesia: No Surgical History Surgical History (Updated 03/16/21 @ 16:25 by KAYDEN Jeter) H/O gastric bypass Hx of cholecystectomy History of Problems with Anesthesia: No Social History Social History (Updated 03/16/21 @ 16:26 by KAYDEN Jeter) Household Members: Other Household Members Other:: 17 yo daughter Housing: Apartment Do you presently have visiting nurse or other home services: No Alcohol intake: current Alcohol intake frequency: holidays/special occasions only Patient Tobacco Use Status: Never used Tobacco Use of substances other than those prescribed or required for medical reasons: No Currently Displaying Signs/Symptoms of Drug Intoxication Withdrawal: No Have you been hit, kicked, punched, or otherwise hurt by someone within the past year? If so, by whom?: No Do you feel safe in your current relationship?: Yes Is there a partner from a previous relationship who is making you feel unsafe now?: No Are you made to feel afraid or neglected: No Advance Directives: No Advance Directives Information Provided: No Advance Directives on File: No Do you have thoughts of harming others: None Do you have a plan to hurt others: No Plan Recently lost weight without trying: No Eating poorly because of decreased appetite: No Nutrition Risks: No Nutritional Risk Patient : No : No Poor oral hygiene: No service: No Sexual orientation: Did not discuss Meds Allergies Allergy/AdvReac Type Severity Reaction Status Date / Time coconut Allergy Severe Anaphylaxis Verified 03/14/21 22:10 nut - unspecified [NUTS] Allergy Severe HIVES, Verified 03/14/21 23:05 DIFF BREATHING, THROAT SWELLS peanut Allergy Severe Anaphylaxis Verified 03/14/21 22:10 Active Medications: Current Medications Acetaminophen (Acetaminophen 325 Mg Tablet) 650 mg PO Q6H PRN PRN Reason: Headache/Pain Mild Scale (1-3) Last Admin: 03/16/21 20:08 Dose: 650 mg Documented by: Al Hydroxide/Mg Hydroxide (Magnesium Hydrox/Alum Hydrox 30 Ml Oral.Susp) 30 ml PO Q6H PRN PRN Reason: Heartburn/Nausea Aripiprazole (Aripiprazole 20 Mg Tablet) 20 mg PO DAILY [facility] Last Admin: 03/17/21 09:53 Dose: 20 mg Documented by: Bacitracin (Bacitracin Oint 14 Gm Tube) 1 appl TOPICAL BID [facility]; Protocol Last Admin: 03/17/21 22:28 Dose: 1 appl Documented by: Benztropine Mesylate (Benztropine Mesylate 1 Mg Tablet) 1 mg PO BID [facility] Last Admin: 03/17/21 22:20 Dose: 1 mg Documented by: Calcium Carbonate (Calcium Carbonate 500 Mg Tablet) 500 mg PO TID PRN PRN Reason: heartburn Doxazosin Mesylate (Doxazosin Mesylate 2 Mg Tablet) 4 mg PO BEDTIME [facility]; Protocol Last Admin: 03/17/21 22:20 Dose: 4 mg Documented by: Hydroxyzine HCl (Hydroxyzine Hcl 50 Mg Tablet) 50 mg PO Q6H PRN PRN Reason: Anxiety Last Admin: 03/18/21 05:07 Dose: 50 mg Documented by: Ibuprofen (Ibuprofen 400 Mg Tablet) 400 mg PO Q8H PRN PRN Reason: mild-mod pain Last Admin: 03/17/21 14:59 Dose: 400 mg Documented by: Lorazepam (Lorazepam 0.5 Mg Tablet) 0.5 mg PO Q8H PRN PRN Reason: agitation Last Admin: 03/17/21 06:04 Dose: 0.5 mg Documented by: Magnesium Hydroxide (Milk Of Magnesia 30 Ml Oral.Susp) 30 ml PO DAILY PRN PRN Reason: Constipation Omeprazole (Omeprazole 20 Mg Capsule.Dr) 20 mg PO DAILY@0630 [facility] Last Admin: 03/17/21 06:04 Dose: 20 mg Documented by: Ondansetron HCl (Ondansetron Odt 4 Mg Tab.Rapdis) 4 mg TRANSLINGU Q8H PRN PRN Reason: nausea Last Admin: 03/17/21 22:35 Dose: 4 mg Documented by: Oxcarbazepine (Oxcarbazepine 300 Mg Tablet) 300 mg PO BID [facility] Last Admin: 03/17/21 22:20 Dose: 300 mg Documented by: Quetiapine Fumarate (Quetiapine Fumarate 100 Mg Tablet) 100 mg PO TID [facility] Last Admin: 03/17/21 22:19 Dose: 100 mg Documented by: Quetiapine Fumarate (Quetiapine Fumarate 50 Mg Tablet) 50 mg PO Q6H PRN PRN Reason: agitation Risperidone (Risperidone 0.25 Mg Tablet) 0.25 mg PO Q4H PRN PRN Reason: assistance with grounding Last Admin: 03/18/21 01:52 Dose: 0.25 mg Documented by: Trazodone HCl (Trazodone Hcl 100 Mg Tablet) 100 mg PO BEDTIME PRN PRN Reason: Insomnia Last Admin: 03/17/21 23:49 Dose: 100 mg Documented by: Venlafaxine HCl (Venlafaxine Hcl Er 150 Mg Cap.Er.24h) 150 mg PO DAILY [facility] Last Admin: 03/17/21 09:53 Dose: 150 mg Documented by: Zinc Acetate/Diphenhydramine (Diphenhydramine Hcl 2 % Cream 28 Gm Tube) 1 appl TOPICAL BID PRN PRN Reason: Itching Home Medications Medication Instructions Recorded Confirmed Last Taken Type trazodone 100 mg PO BEDTIME 03/15/21 03/15/21 Unknown History Exam Exam Date and Time: March 18, 2021 1253 Height,Weight and Vital Signs: Last Vital Signs Temp 98.5 F 03/18/21 05:24 Pulse 97 03/18/21 05:24 Resp 18 03/18/21 05:24 BP 139/86 03/18/21 05:24 Pulse Ox 99 03/18/21 05:24 Pertinent Lab Results Pertinent Lab Results: Laboratory Tests 03/15/21 03/15/21 03/15/21 07:48 07:48 07:48 WBC RBC Hgb Hct MCV MCH MCHC RDW Plt Count MPV Immature Gran % (Auto) Neut % (Auto) Lymph % (Auto) [place] % (Auto) Eos % (Auto) Baso % (Auto) Lymph # (Auto) [place] # (Auto) Eos # (Auto) Baso # (Auto) Abs Immat Gran (auto) Absolute Neuts (auto) Absolute Nucleated RBC Nucleated RBC % (auto) Sodium Potassium Chloride Carbon Dioxide Anion Gap BUN Creatinine Estim Creat Clear Calc Estimated GFR Random Glucose Estimat Average Glucose 82 Hemoglobin A1c % 4.5 Calcium Magnesium 2.0 Total Bilirubin 0.5 Direct Bilirubin 0.2 AST 27 ALT 28 Alkaline Phosphatase 81 Total Protein 6.4 L Albumin 3.9 Triglycerides 186 Cholesterol 196 LDL Cholesterol, Calc 95 HDL Cholesterol 64 Vitamin B12 342 Folate 12.3 TSH 1.14 Free T4 0.66 L 03/16/21 03/16/21 07:51 07:51 WBC 6.9 RBC 4.87 Hgb 14.8 Hct 45.8 MCV 94.0 MCH 30.4 MCHC 32.3 RDW 13.2 Plt Count 297 MPV 10.6 Immature Gran % (Auto) 0.1 Neut % (Auto) 49.0 Lymph % (Auto) 37.8 [place] % (Auto) 8.9 Eos % (Auto) 3.5 Baso % (Auto) 0.7 Lymph # (Auto) 2.6 [place] # (Auto) 0.6 Eos # (Auto) 0.2 Baso # (Auto) 0.1 Abs Immat Gran (auto) 0.01 Absolute Neuts (auto) 3.4 Absolute Nucleated RBC 0.000 Nucleated RBC % (auto) 0.0 Sodium 144 Potassium 4.0 Chloride 106 Carbon Dioxide 29 Anion Gap 13 BUN 7 L Creatinine 0.82 Estim Creat Clear Calc TNP Estimated GFR > 60 Random Glucose 85 Estimat Average Glucose Hemoglobin A1c % Calcium 9.7 Magnesium Total Bilirubin 0.4 Direct Bilirubin AST 25 ALT 25 Alkaline Phosphatase 79 Total Protein 6.7 Albumin 4.0 Triglycerides Cholesterol LDL Cholesterol, Calc HDL Cholesterol Vitamin B12 Folate TSH Free T4 Airway Mallampati Class: II TM Dist: >3cm Neck ROM: Full Heart: rrr Lungs: cta Assessment and Plan Assessment Anesthesia Assessment: Anesthesia Plan Discussed and Chart Reviewed Final Anesthetic Review Family History of Problems with Anesthesia: No History of Problems with Anesthesia: No NPO: Yes ASA Class: III Final Preanesthetic Review: No Changes in Pt Med Stat, Meds/Allgs Chart Reviewed and Consent Obtained/Reviewed Patient Risk: Intermediate Procedure Risk: Intermediate Anesthetic Plan Anesthetic Plan: GA Disposition: Standard PACU
--- NOTE | 2021-03-18 13:19 | MHC.SHP ---
Pre-Procedural Eval Section A Date of Service: 03/18/21 The patient is an INPATIENT: Yes Changes since office visit: No Cold of Flu in the past 2 weeks, No New Medical Problems, No Changes in Medication and No Patient answered all questions The History & Physical has been completed within 30 days and I have reviewed it.: Yes Section B Chief Complaint: Major Depressive Disorder Details of Present Illness: The patient was admitted for an exacerbation of depression with neurovegetative symptoms. Historically, she responded well to ECT. Relevant Family History (Specify if Yes): No Relevant Social History: None Present Medications: see Short Stay Collaborative assessment Medical History: No relevant PMH History of Previous Operations: No relevant previous surgery Allergies: Allergies Allergy/AdvReac Type Severity Reaction Status Date / Time coconut Allergy Severe Anaphylaxis Verified 03/14/21 22:10 nut - unspecified [NUTS] Allergy Severe HIVES, Verified 03/14/21 23:05 DIFF BREATHING, THROAT SWELLS peanut Allergy Severe Anaphylaxis Verified 03/14/21 22:10 Review of Systems Sugical H&P ROS: Negative: Constitution, Cardiovascular, Respiratory, Neurological, Hem-Onc, Allergic/Immunologic, Gastrointestinal, Genitourinary, Musculoskeletal, Integumentary, Endocrine and Eyes/Ears/Nose/Throat and Yes, Specify: Psychiatric (Depression) Exam Surgical H&P Exam: Normal: HEENT, Normal: Heart, Normal: Lungs, Normal: Extremities, Normal: Abdomen, Normal: Skin and Normal: Neurological Plan Diagnosis/Plan: Unchanged I have reviewed the history and physical and performed a pertinent physical examination on my patient. No changes have occurred unless specified.
--- NOTE | 2021-03-18 13:21 | HO.ECTPROC ---
ECT Procedure Note Diagnosis/Treatment Date of Service: 03/18/21 Diagnosis: Major Depressive Disorder Current Treatment Number: 1 Treatment: Series Interval Clinical Notes: The patient reported exacerbation of depression, inpatient at this moment ECT Settings Device: THYMATRON DGx Electrode Placement: Bitemporal Program/Pulse Width: 0.50 Energy Percent: 100 Seizure Duration By EEG (in seconds): 19 By Motor Observation (in seconds): 19 Medications Administration General Anesthetic: Etomidate (12) Muscle Relaxant: Succinylcholine (100) Ancillary Medications Analgesics: Torodol - Pre ECT Anti-emetics: Zofran - Pre ECT Miscillaneous Medications: Propofol and Midazolam Airway Management Airway Management: Bag Mask Ventilation Treatment Recommendations No Changes Recommended: No change Pt Tolerated Procedure w/o Issue: Yes
[2021-03-18] MEDS: Ondansetron ODT 4 MG TAB.RAPDIS TRANSLINGU (14:23)
[2021-03-18] MEDS: ARIPiprazole 20 MG TABLET PO (15:17)
[2021-03-18] MEDS: Benztropine Mesylate 1 MG TABLET PO ×2 (15:18→22:54)
[2021-03-18] MEDS: Venlafaxine HCl ER 150 MG CAP.ER.24H PO (15:18)
[2021-03-18] MEDS: Omeprazole 20 MG CAPSULE.DR PO (15:18)
[2021-03-18] MEDS: QUEtiapine Fumarate 100 MG TABLET PO ×2 (15:18→22:55)
[2021-03-18] MEDS: OXcarbazepine 300 MG TABLET PO ×2 (15:18→22:54)
[2021-03-18] MEDS: Bacitracin Oint 14 GM TUBE 1 APPL TOPICAL ×2 (15:18→19:28)
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
[2021-03-18] MEDS: LORazepam 0.5 MG TABLET PO (19:25)
[2021-03-18] MEDS: Magnesium Hydrox/Alum Hydrox 30 ML ORAL.SUSP PO (19:27)
[2021-03-18] MEDS: Doxazosin Mesylate 2 MG TABLET 4 MG PO (22:54)
[2021-03-19 06:00] VITALS: BP 110/71; PULSE 92; RESP 16; TEMP 36.4; O2SAT 97
[2021-03-19] MEDS: Omeprazole 20 MG CAPSULE.DR PO (06:44)
[2021-03-19] MEDS: Ondansetron ODT 4 MG TAB.RAPDIS TRANSLINGU ×2 (07:59→16:38)
[2021-03-19] MEDS: ARIPiprazole 20 MG TABLET PO (09:36)
[2021-03-19] MEDS: QUEtiapine Fumarate 100 MG TABLET PO ×3 (09:36→21:29)
[2021-03-19] MEDS: Venlafaxine HCl ER 150 MG CAP.ER.24H PO (09:36)
[2021-03-19] MEDS: OXcarbazepine 300 MG TABLET PO ×2 (09:36→21:28)
[2021-03-19] MEDS: Benztropine Mesylate 1 MG TABLET PO ×2 (09:36→21:30)
[2021-03-19] MEDS: LORazepam 0.5 MG TABLET PO (09:36)
[2021-03-19] MEDS: hydrOXYzine HCL 50 MG TABLET PO (16:38)
--- NOTE | 2021-03-19 17:31 | P.PNPSI_ITS ---
Subjective Subjective Date of Service: 03/19/21 Reason For Visit: Major Depressive Disorder Subjective Notes: Conditional Voluntary Healthcare Proxy: No Guardianship: No Medical Problems Affecting Mental Status: No Interim History: Remains on one to one. Discussed symptoms presenting for the p ast ~10+ weeks and admissions to [facility] as well as her thoughts on precipitants. Reports ongoing safety issues-informed her primary RN that she had been cheeking meds and diverting to save them since admission with a plan to overdose. Security completed a room search and did not find medications but did find metal snaps from hospital clothing-pt reporting she was going to self-harm with them. Pt unclear why these symptoms are present- It is beyond my control-the urges are strong and they just happen. Reports soreness in legs/arms s/p ECT on 03/18. Medication Compliance: No (as noted above) Side effects from medications: No Attending Groups: No Review of Systems Acute medical concerns: No Medical Review of Systems: unchanged Review of Systems Reports behavioral changes Psychiatric: Reports anxiety, Reports behavioral changes, Reports depression, Reports difficulty concentrating, Reports hopelessness, Reports irritability and Reports suicidal ideation Mental Status Exam Mental Status Exam Patient Appearance: Fatigued Patient Orientation: Person, Place and Situation Level of Consciousness: Alert Patient Behavior: Dependent, Passive, Anxious and Good Eye Contact Mood Description: Depressed Affect Description: Flat Patient Cognition Impaired: No Ability to Follow Directions: Good Speech Pattern: Spontaneous Speech Memory Description: Episodic Impaired Hallucinations: None Delusions: Paranoid Ideation Perceptual Disturbances: Depersonalization and Derealization Thought Process: Distracted and Rumination Thought Content: positive for [place], positive for [place]sever[place] and positive for Suicidal Ideation Depressive Symptoms: Increased Anxiety, Increased Irritability, Difficulty Sleeping, Changes in Appetite, Loss of Int. in Activity, Hopelessness, Isolating-Friends/Family, Unhappiness, Increased Fatigue, Thoughts of /Suicide, Low Self Esteem, Loss of Energy and Difficulty Concentrating Judgement: Fair Diagnostics Vital Signs (24Hr): Vital Signs - 24 hr 03/18/21 18:00 03/18/21 22:55 03/19/21 06:00 Temperature 98.1 F 98.8 F 97.6 F Pulse Rate 78 90 92 Respiratory Rate 18 16 Blood Pressure 128/88 117/56 L 110/71 Pulse Oximetry 97 94 97 BMI result Body Mass Index 33.8 Labs Results: 03/16/21 07:51 03/16/21 07:51 Imaging Radiology Impressions: ITS Impressions Chest X-Ray 03/15/21 19:02 IMPRESSION: Unremarkable examination. Medications Medications Current Medications Acetaminophen (Acetaminophen 325 Mg Tablet) 650 mg PO Q6H PRN PRN Reason: Headache/Pain Mild Scale (1-3) Last Admin: 03/16/21 20:08 Dose: 650 mg Documented by: Al Hydroxide/Mg Hydroxide (Magnesium Hydrox/Alum Hydrox 30 Ml Oral.Susp) 30 ml PO Q6H PRN PRN Reason: Heartburn/Nausea Last Admin: 03/18/21 19:27 Dose: 30 ml Documented by: Aripiprazole (Aripiprazole 20 Mg Tablet) 20 mg PO DAILY [facility] Last Admin: 03/19/21 09:36 Dose: 20 mg Documented by: Bacitracin (Bacitracin Oint 14 Gm Tube) 1 appl TOPICAL BID [facility]; Protocol Last Admin: 03/19/21 09:38 Dose: Not Given Documented by: Benztropine Mesylate (Benztropine Mesylate 1 Mg Tablet) 1 mg PO BID [facility] Last Admin: 03/19/21 09:36 Dose: 1 mg Documented by: Calcium Carbonate (Calcium Carbonate 500 Mg Tablet) 500 mg PO TID PRN PRN Reason: heartburn Doxazosin Mesylate (Doxazosin Mesylate 2 Mg Tablet) 4 mg PO BEDTIME [facility]; Protocol Last Admin: 03/18/21 22:54 Dose: 4 mg Documented by: Hydroxyzine HCl (Hydroxyzine Hcl 50 Mg Tablet) 50 mg PO Q6H PRN PRN Reason: Anxiety Last Admin: 03/19/21 16:38 Dose: 50 mg Documented by: Lactated Ringer's (Lr) 1,000 mls @ 50 mls/hr IVCONT .Q20H [facility] Last Admin: 03/19/21 09:38 Dose: Not Given Documented by: Ibuprofen (Ibuprofen 400 Mg Tablet) 400 mg PO Q8H PRN PRN Reason: mild-mod pain Last Admin: 03/17/21 14:59 Dose: 400 mg Documented by: Lorazepam (Lorazepam 0.5 Mg Tablet) 0.5 mg PO Q8H PRN PRN Reason: agitation Last Admin: 03/19/21 09:36 Dose: 0.5 mg Documented by: Magnesium Hydroxide (Milk Of Magnesia 30 Ml Oral.Susp) 30 ml PO DAILY PRN PRN Reason: Constipation Omeprazole (Omeprazole 20 Mg Capsule.Dr) 20 mg PO DAILY@0630 [facility] Last Admin: 03/19/21 06:44 Dose: 20 mg Documented by: Ondansetron HCl (Ondansetron Odt 4 Mg Tab.Rapdis) 4 mg TRANSLINGU Q8H PRN PRN Reason: nausea Last Admin: 03/19/21 16:38 Dose: 4 mg Documented by: Oxcarbazepine (Oxcarbazepine 300 Mg Tablet) 300 mg PO BID [facility] Last Admin: 03/19/21 09:36 Dose: 300 mg Documented by: Quetiapine Fumarate (Quetiapine Fumarate 100 Mg Tablet) 100 mg PO TID [facility] Last Admin: 03/19/21 14:15 Dose: 100 mg Documented by: Quetiapine Fumarate (Quetiapine Fumarate 50 Mg Tablet) 50 mg PO Q6H PRN PRN Reason: agitation Risperidone (Risperidone 0.25 Mg Tablet) 0.25 mg PO Q4H PRN PRN Reason: assistance with grounding Last Admin: 03/18/21 01:52 Dose: 0.25 mg Documented by: Trazodone HCl (Trazodone Hcl 100 Mg Tablet) 100 mg PO BEDTIME PRN PRN Reason: Insomnia Last Admin: 03/17/21 23:49 Dose: 100 mg Documented by: Venlafaxine HCl (Venlafaxine Hcl Er 150 Mg Cap.Er.24h) 150 mg PO DAILY [facility] Last Admin: 03/19/21 09:36 Dose: 150 mg Documented by: Zinc Acetate/Diphenhydramine (Diphenhydramine Hcl 2 % Cream 28 Gm Tube) 1 appl TOPICAL BID PRN PRN Reason: Itching Allergies Allergies Allergy/AdvReac Type Severity Reaction Status Date / Time coconut Allergy Severe Anaphylaxis Verified 03/14/21 22:10 nut - unspecified [NUTS] Allergy Severe HIVES, Verified 03/14/21 23:05 DIFF BREATHING, THROAT SWELLS peanut Allergy Severe Anaphylaxis Verified 03/14/21 22:10 Assessment & Plan Assessment & Plan (1) TREY (generalized anxiety disorder): Status: Acute Code(s): F41.1 - Generalized anxiety disorder (2) MDD (major depressive disorder), recurrent severe, without psychosis: Status: Acute Code(s): F33.2 - Major depressive disorder, recurrent severe without psychotic features Assessment and Plan: 35 y.o. Who carries a dx of PTSD, MDD recurrent, TREY. She is a lateral transfer from [facility], admitted on 02/18/21 for depression, anxiety, and SI. Recent perceptual disturbances of 's image and voice, he from suicide 2 yr ago. Plan: Pt is here for ECT. Med reconciliation done. Pt reports she is supposed to be on doxazosin 4 mg at bedtime and 2 mg QD (this was her dose of prazosin and it was switched to doxazosin at [facility], however discharge listed doxazosin as 1 mg QHS). Will increase doxazosin to 2 mg QHS and defer to primary team for adjustments. Pt reports she is still on trileptal 300 mg BID but this was not on [facility] discharge. Pt also reports benefit on ativan 0.5 mg BID PRN for agitation, anxiety- will re-start, as this helps when pt has urges to self harm in context of anxiety and agitation. Monitor response to medications. Monitor for safety in the milieu. Discharge on stabilization. Patient seen. Chart reviewed. Discussed with team. Obtain collateral contact info?as needed 03/15/21: Increase Doxazosin to 4 mg HS. Monitor for SE. Pt asks to have 2 mg return to daytime dosing-will titrate gradually. Risperdal 0.25 mg bid prn grounding assist to manage SIBS. Medical clearance for ECT ordered-hospitalist, Chest xray, EKG, CMP, CBC Pt will move closer to nursing station as she has been struggling with her safety and working on a plan of care with team to remain safe while keeping as much of her own control as possible. Weekend Coverage: 03/16- Pt continues to endorse urges for self harm and had incident of superficial cutting this morning, told rn staffing after the event and had it dressed. Reminded pt that she has PRN riserpdal ordered and pt is willing to utilize. Will monitor for benefit. 03/17-Pt discloses urges and plan to cut herself with a staple, had this in possession and was able to give this up. Also disclosed command AH. Reports positive benefit on PRN risperdal, will increase to Q4H PRN. Encouraged coping skills. NPO orders to start at midnight for ECT tomorrow. 03/18/21 ECT completed. No medication changes today. 03/19/21 Continue current regime as pt reports cheeking/saving medications since admission Tolerated ECT 03/18/21 Continue plan of care. I spent 20 minutes with the patient and/or on the patient floor today, greater than?50% of which was spent counseling/coordinating care. Patient educated on: medication risk/benefits and therapeutic strategies Informed Consent: further education needed Reason for contiued inpatient stay Substantial Risk for: harm to self, inability to function and rapid decompensation
[2021-03-19 18:00] VITALS: BP 112/79; PULSE 98; RESP 18; TEMP 36.8; O2SAT 98
[2021-03-19] MEDS: Ibuprofen 400 MG TABLET PO (19:40)
[2021-03-19 21:28] VITALS: BP 124/74; PULSE 98
[2021-03-19] MEDS: Doxazosin Mesylate 2 MG TABLET 4 MG PO (21:28)
[2021-03-20] VITALS (9 sets, daily range): BP systolic 111–132; BP diastolic 63–88; PULSE 82–99; RESP 16–18; TEMP 36.6–37.2; O2SAT 95–99
[2021-03-20] MEDS: Acetaminophen 325 MG TABLET 650 MG PO ×2 (04:11→17:53)
--- NOTE | 2021-03-20 08:18 | MHC.SHP ---
Pre-Procedural Eval Section A Date of Service: 03/20/21 The patient is an INPATIENT: Yes Changes since office visit: Yes Changes in Medication and Yes Patient answered all questions; No Cold of Flu in the past 2 weeks and No New Medical Problems The History & Physical has been completed within 30 days and I have reviewed it.: Yes Section B Chief Complaint: Major Depressive Disorder Allergies: Allergies Allergy/AdvReac Type Severity Reaction Status Date / Time coconut Allergy Severe Anaphylaxis Verified 03/14/21 22:10 nut - unspecified [NUTS] Allergy Severe HIVES, Verified 03/14/21 23:05 DIFF BREATHING, THROAT SWELLS peanut Allergy Severe Anaphylaxis Verified 03/14/21 22:10 Plan I have reviewed the history and physical and performed a pertinent physical examination on my patient. No changes have occurred unless specified.
--- NOTE | 2021-03-20 08:29 | HO.ECTPROC ---
ECT Procedure Note Diagnosis/Treatment Date of Service: 03/20/21 Diagnosis: Major Depressive Disorder and Other (ptsd) Previous ECT Date: 03/18/21 Current Treatment Number: 2 Treatment: Series Interval Clinical Notes: pos si anxiety tolerated 1 st ect ECT Settings Device: THYMATRON DGx Electrode Placement: Bitemporal Program/Pulse Width: 0.50 Energy Percent: 100 Seizure Duration By EEG (in seconds): 22 Medications Administration General Anesthetic: Etomidate Muscle Relaxant: Succinylcholine Ancillary Medications Analgesics: Torodol - Pre ECT Anti-emetics: Zofran - Pre ECT Miscillaneous Medications: Flumazenil Airway Management Airway Management: Bag Mask Ventilation Treatment Recommendations Electrode Placement: Bitemporal Notes: taper trileptal hold nite prior to ect Pt Tolerated Procedure w/o Issue: Yes
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
--- NOTE | 2021-03-20 08:43 | HO.POSTANES ---
Post Anesthesia Evaluation Post Anesthesia Evaluation Vital Signs: Vital Signs Temp Pulse Resp BP Pulse Ox 03/20/21 06:33 97.8 F 97 16 119/80 97 03/19/21 21:28 98 124/74 Anesthesia: General Mental Status: Awake Pain Control: Satisfactory Nausea/Vomiting: None Hydration: Adequate Anesthesia-Related Issues: No Anes. Related Issues
[2021-03-20] MEDS: ARIPiprazole 20 MG TABLET PO (10:15)
[2021-03-20] MEDS: Omeprazole 20 MG CAPSULE.DR PO (10:15)
[2021-03-20] MEDS: Venlafaxine HCl ER 150 MG CAP.ER.24H PO (10:15)
[2021-03-20] MEDS: OXcarbazepine 300 MG TABLET PO ×2 (10:15→21:07)
[2021-03-20] MEDS: QUEtiapine Fumarate 100 MG TABLET PO ×3 (10:15→21:07)
[2021-03-20] MEDS: Benztropine Mesylate 1 MG TABLET PO ×2 (10:15→21:07)
[2021-03-20] MEDS: Ibuprofen 400 MG TABLET PO (15:12)
[2021-03-20] MEDS: hydrOXYzine HCL 50 MG TABLET PO (16:04)
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
[2021-03-20] MEDS: Doxazosin Mesylate 2 MG TABLET 4 MG PO (21:07)
[2021-03-20] MEDS: Bacitracin Oint 14 GM TUBE 1 APPL TOPICAL (23:18)
[2021-03-21] MEDS: Ibuprofen 400 MG TABLET PO (05:26)
[2021-03-21 05:38] VITALS: BP 120/73; PULSE 95; RESP 18; TEMP 36.2; O2SAT 97
[2021-03-21] MEDS: Benztropine Mesylate 1 MG TABLET PO ×2 (08:50→20:17)
[2021-03-21] MEDS: QUEtiapine Fumarate 100 MG TABLET PO ×3 (08:50→20:16)
[2021-03-21] MEDS: OXcarbazepine 150 MG TABLET PO ×2 (08:50→20:16)
[2021-03-21] MEDS: hydrOXYzine HCL 50 MG TABLET PO (08:50)
[2021-03-21] MEDS: ARIPiprazole 20 MG TABLET PO (08:50)
[2021-03-21] MEDS: Venlafaxine HCl ER 150 MG CAP.ER.24H PO (08:50)
[2021-03-21] MEDS: risperiDONE 0.25 MG TABLET PO (20:16)
[2021-03-21 20:17] VITALS: BP 134/74; PULSE 98
[2021-03-21] MEDS: Doxazosin Mesylate 2 MG TABLET 4 MG PO (20:17)
[2021-03-21 20:22] VITALS: BP 134/74; PULSE 98; RESP 16; TEMP 36.2; O2SAT 99
[2021-03-21] MEDS: Ondansetron ODT 4 MG TAB.RAPDIS TRANSLINGU (20:46)
[2021-03-21] MEDS: Bacitracin Oint 14 GM TUBE 1 APPL TOPICAL (21:30)
--- NOTE | 2021-03-21 22:08 | P.PNPSI_ITS ---
Subjective Subjective Date of Service: 03/21/21 Reason For Visit: Major Depressive Disorder Subjective Notes: Conditional Voluntary Healthcare Proxy: No Guardianship: No Medical Problems Affecting Mental Status: No Interim History: Review of medications with pt to discuss efficacy. Discussed u se of prn Risperdal to assist with grounding and increase of Venalfaxine from 150mg to 187.5 mg to assist with depressive sx mgt. Initial review of mindfulness practice-reduce suffering, increase control of your mind and experience reality as it is along with goals of emotional regulation to underst and and identify emotions, decrease frequency of negative emotions, decrease vulnerability and decrease suffering along with letting go of suffering. Pt will review handouts given. She reports continued intense SI, stating I cut myself in the bathroom and the one to one was not with me. Review of pt's angry feelings as well. Medication Compliance: Yes Side effects from medications: No Attending Groups: No Review of Systems Acute medical concerns: No Medical Review of Systems: unchanged Review of Systems Reports behavioral changes Psychiatric: Reports anxiety, Reports behavioral changes, Reports depression, Reports difficulty concentrating, Reports hopelessness, Reports irritability and Reports suicidal ideation Mental Status Exam Mental Status Exam Patient Appearance: Fatigued Patient Orientation: Person, Place and Situation Level of Consciousness: Alert Patient Behavior: Dependent, Passive, Anxious and Good Eye Contact Mood Description: Depressed Affect Description: Flat Patient Cognition Impaired: No Ability to Follow Directions: Good Speech Pattern: Spontaneous Speech Memory Description: Episodic Impaired Hallucinations: None Delusions: Paranoid Ideation Perceptual Disturbances: Depersonalization and Derealization Thought Process: Distracted and Rumination Thought Content: positive for Stevenson, positive for Perseveration and positive for Suicidal Ideation Depressive Symptoms: Increased Anxiety, Increased Irritability, Difficulty Sleeping, Changes in Appetite, Loss of Int. in Activity, Hopelessness, Isolating-Friends/Family, Unhappiness, Increased Fatigue, Thoughts of /Suicide, Low Self Esteem, Loss of Energy and Difficulty Concentrating Judgement: Fair Diagnostics Vital Signs (24Hr): Vital Signs - 24 hr 03/21/21 05:38 03/21/21 20:17 03/21/21 20:22 Temperature 97.2 F 97.2 F Pulse Rate 95 98 98 Respiratory Rate 18 16 Blood Pressure 120/73 134/74 134/74 Pulse Oximetry 97 99 BMI result Body Mass Index 33.8 Labs Results: 03/16/21 07:51 03/16/21 07:51 Imaging Radiology Impressions: ITS Impressions Chest X-Ray 03/15/21 19:02 IMPRESSION: Unremarkable examination. Medications Medications Current Medications Acetaminophen (Acetaminophen 325 Mg Tablet) 650 mg PO Q6H PRN PRN Reason: Headache/Pain Mild Scale (1-3) Last Admin: 03/20/21 17:53 Dose: 650 mg Documented by: Al Hydroxide/Mg Hydroxide (Magnesium Hydrox/Alum Hydrox 30 Ml Oral.Susp) 30 ml PO Q6H PRN PRN Reason: Heartburn/Nausea Last Admin: 03/18/21 19:27 Dose: 30 ml Documented by: Aripiprazole (Aripiprazole 20 Mg Tablet) 20 mg PO DAILY [facility] Last Admin: 03/21/21 08:50 Dose: 20 mg Documented by: Bacitracin (Bacitracin Oint 14 Gm Tube) 1 appl TOPICAL BID [facility]; Protocol Last Admin: 03/21/21 09:57 Dose: Not Given Documented by: Benztropine Mesylate (Benztropine Mesylate 1 Mg Tablet) 1 mg PO BID [facility] Last Admin: 03/21/21 20:17 Dose: 1 mg Documented by: Calcium Carbonate (Calcium Carbonate 500 Mg Tablet) 500 mg PO TID PRN PRN Reason: heartburn Doxazosin Mesylate (Doxazosin Mesylate 2 Mg Tablet) 4 mg PO BEDTIME [facility]; Protocol Last Admin: 03/21/21 20:17 Dose: 4 mg Documented by: Hydroxyzine HCl (Hydroxyzine Hcl 50 Mg Tablet) 50 mg PO Q6H PRN PRN Reason: Anxiety Last Admin: 03/21/21 08:50 Dose: 50 mg Documented by: Ibuprofen (Ibuprofen 400 Mg Tablet) 400 mg PO Q8H PRN PRN Reason: mild-mod pain Last Admin: 03/21/21 05:26 Dose: 400 mg Documented by: Magnesium Hydroxide (Milk Of Magnesia 30 Ml Oral.Susp) 30 ml PO DAILY PRN PRN Reason: Constipation Omeprazole (Omeprazole 20 Mg Capsule.Dr) 20 mg PO DAILY@0630 [facility] Last Admin: 03/21/21 10:06 Dose: Not Given Documented by: Ondansetron HCl (Ondansetron Odt 4 Mg Tab.Rapdis) 4 mg TRANSLINGU Q8H PRN PRN Reason: nausea Last Admin: 03/21/21 20:46 Dose: 4 mg Documented by: Oxcarbazepine (Oxcarbazepine 150 Mg Tablet) 150 mg PO BID [facility] Last Admin: 03/21/21 20:16 Dose: 150 mg Documented by: Quetiapine Fumarate (Quetiapine Fumarate 100 Mg Tablet) 100 mg PO TID [facility] Last Admin: 03/21/21 20:16 Dose: 100 mg Documented by: Quetiapine Fumarate (Quetiapine Fumarate 50 Mg Tablet) 50 mg PO Q6H PRN PRN Reason: agitation Risperidone (Risperidone 0.25 Mg Tablet) 0.25 mg PO Q4H PRN PRN Reason: assistance with grounding Last Admin: 03/21/21 20:16 Dose: 0.25 mg Documented by: Trazodone HCl (Trazodone Hcl 100 Mg Tablet) 100 mg PO BEDTIME PRN PRN Reason: Insomnia Last Admin: 03/17/21 23:49 Dose: 100 mg Documented by: Venlafaxine HCl (Venlafaxine Hcl Er 37.5 Mg Cap.Er.24h) 187.5 mg PO DAILY [facility] Zinc Acetate/Diphenhydramine (Diphenhydramine Hcl 2 % Cream 28 Gm Tube) 1 appl TOPICAL BID PRN PRN Reason: Itching Allergies Allergies Allergy/AdvReac Type Severity Reaction Status Date / Time coconut Allergy Severe Anaphylaxis Verified 03/14/21 22:10 nut - unspecified [NUTS] Allergy Severe HIVES, Verified 03/14/21 23:05 DIFF BREATHING, THROAT SWELLS peanut Allergy Severe Anaphylaxis Verified 03/14/21 22:10 Assessment & Plan Assessment & Plan (1) TREY (generalized anxiety disorder): Status: Acute Code(s): F41.1 - Generalized anxiety disorder (2) MDD (major depressive disorder), recurrent severe, without psychosis: Status: Acute Code(s): F33.2 - Major depressive disorder, recurrent severe without psychotic features Assessment and Plan: 35 y.o. Who carries a dx of PTSD, MDD recurrent, TREY. She is a lateral transfer from [facility], admitted on 02/18/21 for depression, anxiety, and SI. Recent perceptual disturbances of 's image and voice, he from suicide 2 yr ago. Plan: Pt is here for ECT. Med reconciliation done. Pt reports she is supposed to be on doxazosin 4 mg at bedtime and 2 mg QD (this was her dose of prazosin and it was switched to doxazosin at [facility], however discharge listed doxazosin as 1 mg QHS). Will increase doxazosin to 2 mg QHS and defer to primary team for adjustments. Pt reports she is still on trileptal 300 mg BID but this was not on [facility] discharge. Pt also reports benefit on ativan 0.5 mg BID PRN for agitation, anxiety- will re-start, as this helps when pt has urges to self harm in context of anxiety and agitation. Monitor response to medications. Monitor for safety in the milieu. Discharge on stabilization. Patient seen. Chart reviewed. Discussed with team. Obtain collateral contact info?as needed 03/15/21: Increase Doxazosin to 4 mg HS. Monitor for SE. Pt asks to have 2 mg return to daytime dosing-will titrate gradually. Risperdal 0.25 mg bid prn grounding assist to manage SIBS. Medical clearance for ECT ordered-hospitalist, Chest xray, EKG, CMP, CBC Pt will move closer to nursing station as she has been struggling with her safety and working on a plan of care with team to remain safe while keeping as much of her own control as possible. Weekend Coverage: 03/16- Pt continues to endorse urges for self harm and had incident of superficial cutting this morning, told staff midwife after the event and had it dressed. Reminded pt that she has PRN riserpdal ordered and pt is willing to utilize. Will monitor for benefit. 03/17-Pt discloses urges and plan to cut herself with a staple, had this in possession and was able to give this up. Also disclosed command AH. Reports positive benefit on PRN risperdal, will increase to Q4H PRN. Encouraged coping skills. NPO orders to start at midnight for ECT tomorrow. 03/18/21 ECT completed. No medication changes today. 03/19/21 Continue current regime as pt reports cheeking/saving medications since admission Tolerated ECT 03/18/21 Continue plan of care. 03/20/21 Continue current plan of care Mindfulness exercises 03/21-non ECT day. 03/21/21 Increase Venlafaxine ER to 187.5 mg daily Encourage use of Risperdal to assist with grounding Initiated use of DBT skills with targeted handouts focused on mgt of suffering. I spent 35 minutes with the patient and/or on the patient floor today, greater than?50% of which was spent counseling/coordinating care. Patient educated on: therapeutic strategies Informed Consent: further education needed Reason for contiued inpatient stay Substantial Risk for: harm to self, inability to function and rapid decompensation
[2021-03-22] VITALS (11 sets, daily range): BP systolic 101–139; BP diastolic 63–97; PULSE 75–102; RESP 16–17; TEMP 36.1–36.8; O2SAT 94–98
--- NOTE | 2021-03-22 06:52 | HO.ANESPROP2 ---
[facility] Active Problems Active Problems: All Active Problems (Updated 03/16/21 @ 16:28 by KAYDEN Jeter) MDD (major depressive disorder), recurrent severe, without psychosis (Acute) TREY (generalized anxiety disorder) (Acute) Past Medical History Medical History TREY (generalized anxiety disorder) GERD (gastroesophageal reflux disease) HTN (hypertension) MDD (major depressive disorder), recurrent severe, without psychosis MARIA TERESA (obstructive sleep apnea) Post traumatic stress disorder (PTSD) Functional capacity: independent ambulation Family History Family History Mother Heart disease Family history of problems with anesthesia: No Surgical History Surgical History H/O gastric bypass Hx of cholecystectomy History of Problems with Anesthesia: No Social History Social History Household Members: Other Household Members Other:: 17 yo daughter Housing: Apartment Do you presently have visiting nurse or other home services: No Alcohol intake: current Alcohol intake frequency: holidays/special occasions only Patient Tobacco Use Status: Never used Tobacco Use of substances other than those prescribed or required for medical reasons: No Currently Displaying Signs/Symptoms of Drug Intoxication Withdrawal: No Have you been hit, kicked, punched, or otherwise hurt by someone within the past year? If so, by whom?: No Do you feel safe in your current relationship?: Yes Is there a partner from a previous relationship who is making you feel unsafe now?: No Are you made to feel afraid or neglected: No Are you DNR?: No Advance Directives: No Advance Directives Information Provided: No Advance Directives on File: No Do you have thoughts of harming others: None Do you have a plan to hurt others: No Plan Recently lost weight without trying: No Eating poorly because of decreased appetite: No Nutrition Risks: No Nutritional Risk Patient : No : No Poor oral hygiene: No service: No Sexual orientation: Did not discuss Meds Allergies Allergy/AdvReac Type Severity Reaction Status Date / Time coconut Allergy Severe Anaphylaxis Verified 03/14/21 22:10 nut - unspecified [NUTS] Allergy Severe HIVES, Verified 03/14/21 23:05 DIFF BREATHING, THROAT SWELLS peanut Allergy Severe Anaphylaxis Verified 03/14/21 22:10 Active Medications: Current Medications Acetaminophen (Acetaminophen 325 Mg Tablet) 650 mg PO Q6H PRN PRN Reason: Headache/Pain Mild Scale (1-3) Last Admin: 03/20/21 17:53 Dose: 650 mg Documented by: Al Hydroxide/Mg Hydroxide (Magnesium Hydrox/Alum Hydrox 30 Ml Oral.Susp) 30 ml PO Q6H PRN PRN Reason: Heartburn/Nausea Last Admin: 03/18/21 19:27 Dose: 30 ml Documented by: Aripiprazole (Aripiprazole 20 Mg Tablet) 20 mg PO DAILY [facility] Last Admin: 03/21/21 08:50 Dose: 20 mg Documented by: Bacitracin (Bacitracin Oint 14 Gm Tube) 1 appl TOPICAL BID [facility]; Protocol Last Admin: 03/21/21 21:30 Dose: 1 appl Documented by: Benztropine Mesylate (Benztropine Mesylate 1 Mg Tablet) 1 mg PO BID [facility] Last Admin: 03/21/21 20:17 Dose: 1 mg Documented by: Calcium Carbonate (Calcium Carbonate 500 Mg Tablet) 500 mg PO TID PRN PRN Reason: heartburn Doxazosin Mesylate (Doxazosin Mesylate 2 Mg Tablet) 4 mg PO BEDTIME [facility]; Protocol Last Admin: 03/21/21 20:17 Dose: 4 mg Documented by: Hydroxyzine HCl (Hydroxyzine Hcl 50 Mg Tablet) 50 mg PO Q6H PRN PRN Reason: Anxiety Last Admin: 03/21/21 08:50 Dose: 50 mg Documented by: Ibuprofen (Ibuprofen 400 Mg Tablet) 400 mg PO Q8H PRN PRN Reason: mild-mod pain Last Admin: 03/21/21 05:26 Dose: 400 mg Documented by: Magnesium Hydroxide (Milk Of Magnesia 30 Ml Oral.Susp) 30 ml PO DAILY PRN PRN Reason: Constipation Omeprazole (Omeprazole 20 Mg Capsule.Dr) 20 mg PO DAILY@0630 [facility] Last Admin: 03/21/21 10:06 Dose: Not Given Documented by: Ondansetron HCl (Ondansetron Odt 4 Mg Tab.Rapdis) 4 mg TRANSLINGU Q8H PRN PRN Reason: nausea Last Admin: 03/21/21 20:46 Dose: 4 mg Documented by: Oxcarbazepine (Oxcarbazepine 150 Mg Tablet) 150 mg PO BID [facility] Last Admin: 03/21/21 20:16 Dose: 150 mg Documented by: Quetiapine Fumarate (Quetiapine Fumarate 100 Mg Tablet) 100 mg PO TID [facility] Last Admin: 03/21/21 20:16 Dose: 100 mg Documented by: Quetiapine Fumarate (Quetiapine Fumarate 50 Mg Tablet) 50 mg PO Q6H PRN PRN Reason: agitation Risperidone (Risperidone 0.25 Mg Tablet) 0.25 mg PO Q4H PRN PRN Reason: assistance with grounding Last Admin: 03/21/21 20:16 Dose: 0.25 mg Documented by: Trazodone HCl (Trazodone Hcl 100 Mg Tablet) 100 mg PO BEDTIME PRN PRN Reason: Insomnia Last Admin: 03/17/21 23:49 Dose: 100 mg Documented by: Venlafaxine HCl (Venlafaxine Hcl Er 37.5 Mg Cap.Er.24h) 187.5 mg PO DAILY [facility] Zinc Acetate/Diphenhydramine (Diphenhydramine Hcl 2 % Cream 28 Gm Tube) 1 appl TOPICAL BID PRN PRN Reason: Itching Home Medications Medication Instructions Recorded Confirmed Last Taken Type trazodone 100 mg PO BEDTIME 03/15/21 03/15/21 Unknown History Exam Exam Date and Time: March 22, 2021 0652 Height,Weight and Vital Signs: Height 5 ft 2 in Weight 83.915 kg Last Vital Signs Temp 97.4 F 03/22/21 06:22 Pulse 90 03/22/21 06:22 Resp 16 03/22/21 06:22 BP 111/63 03/22/21 06:22 Pulse Ox 98 03/22/21 06:22 Pertinent Lab Results Pertinent Lab Results: Laboratory Tests 03/15/21 03/15/21 03/15/21 07:48 07:48 07:48 WBC RBC Hgb Hct MCV MCH MCHC RDW Plt Count MPV Immature Gran % (Auto) Neut % (Auto) Lymph % (Auto) [place] % (Auto) Eos % (Auto) Baso % (Auto) Lymph # (Auto) [place] # (Auto) Eos # (Auto) Baso # (Auto) Abs Immat Gran (auto) Absolute Neuts (auto) Absolute Nucleated RBC Nucleated RBC % (auto) Sodium Potassium Chloride Carbon Dioxide Anion Gap BUN Creatinine Estim Creat Clear Calc Estimated GFR Random Glucose Estimat Average Glucose 82 Hemoglobin A1c % 4.5 Calcium Magnesium 2.0 Total Bilirubin 0.5 Direct Bilirubin 0.2 AST 27 ALT 28 Alkaline Phosphatase 81 Total Protein 6.4 L Albumin 3.9 Triglycerides 186 Cholesterol 196 LDL Cholesterol, Calc 95 HDL Cholesterol 64 Vitamin B12 342 Folate 12.3 TSH 1.14 Free T4 0.66 L 03/16/21 03/16/21 07:51 07:51 WBC 6.9 RBC 4.87 Hgb 14.8 Hct 45.8 MCV 94.0 MCH 30.4 MCHC 32.3 RDW 13.2 Plt Count 297 MPV 10.6 Immature Gran % (Auto) 0.1 Neut % (Auto) 49.0 Lymph % (Auto) 37.8 [place] % (Auto) 8.9 Eos % (Auto) 3.5 Baso % (Auto) 0.7 Lymph # (Auto) 2.6 [place] # (Auto) 0.6 Eos # (Auto) 0.2 Baso # (Auto) 0.1 Abs Immat Gran (auto) 0.01 Absolute Neuts (auto) 3.4 Absolute Nucleated RBC 0.000 Nucleated RBC % (auto) 0.0 Sodium 144 Potassium 4.0 Chloride 106 Carbon Dioxide 29 Anion Gap 13 BUN 7 L Creatinine 0.82 Estim Creat Clear Calc TNP Estimated GFR > 60 Random Glucose 85 Estimat Average Glucose Hemoglobin A1c % Calcium 9.7 Magnesium Total Bilirubin 0.4 Direct Bilirubin AST 25 ALT 25 Alkaline Phosphatase 79 Total Protein 6.7 Albumin 4.0 Triglycerides Cholesterol LDL Cholesterol, Calc HDL Cholesterol Vitamin B12 Folate TSH Free T4 Airway Mallampati Class: II TM Dist: >3cm Neck ROM: Full Heart: rrr Lungs: cta Assessment and Plan Assessment Anesthesia Assessment: Anesthesia Plan Discussed and Chart Reviewed Final Anesthetic Review Family History of Problems with Anesthesia: No History of Problems with Anesthesia: No NPO: Yes ASA Class: III Final Preanesthetic Review: No Changes in Pt Med Stat, Meds/Allgs Chart Reviewed and Consent Obtained/Reviewed Patient Risk: Intermediate Procedure Risk: Intermediate Anesthetic Plan Anesthetic Plan: GA Disposition: Standard PACU
--- NOTE | 2021-03-22 07:15 | MHC.SHP ---
Pre-Procedural Eval Section A Date of Service: 03/22/21 The patient is an INPATIENT: Yes Changes since office visit: Yes Changes in Medication and Yes Patient answered all questions; No Cold of Flu in the past 2 weeks and No New Medical Problems The History & Physical has been completed within 30 days and I have reviewed it.: Yes Section B Chief Complaint: Major Depressive Disorder Allergies: Allergies Allergy/AdvReac Type Severity Reaction Status Date / Time coconut Allergy Severe Anaphylaxis Verified 03/14/21 22:10 nut - unspecified [NUTS] Allergy Severe HIVES, Verified 03/14/21 23:05 DIFF BREATHING, THROAT SWELLS peanut Allergy Severe Anaphylaxis Verified 03/14/21 22:10 Plan I have reviewed the history and physical and performed a pertinent physical examination on my patient. No changes have occurred unless specified.
--- NOTE | 2021-03-22 07:37 | HO.ECTPROC ---
ECT Procedure Note Diagnosis/Treatment Date of Service: 03/22/21 Diagnosis: Major Depressive Disorder and Other (ptsd) Previous ECT Date: 03/20/21 Current Treatment Number: 3 Treatment: Series Interval Clinical Notes: pt anxious depressed self harm thoughts ECT Settings Device: THYMATRON DGx Electrode Placement: Bitemporal Program/Pulse Width: 0.50 Energy Percent: 100 Seizure Duration By EEG (in seconds): 17 Medications Administration General Anesthetic: Etomidate Muscle Relaxant: Succinylcholine Ancillary Medications Miscillaneous Medications: Propofol Airway Management Airway Management: Bag Mask Ventilation Treatment Recommendations Notes: trileptal d/c lorazepam can be used Pt Tolerated Procedure w/o Issue: Yes
[2021-03-22] MEDS: Venlafaxine HCl ER 37.5 MG CAP.ER.24H 187.5 MG PO (08:52)
[2021-03-22] MEDS: Omeprazole 20 MG CAPSULE.DR PO (08:52)
[2021-03-22] MEDS: ARIPiprazole 20 MG TABLET PO (08:52)
[2021-03-22] MEDS: Benztropine Mesylate 1 MG TABLET PO ×2 (08:52→20:06)
[2021-03-22] MEDS: QUEtiapine Fumarate 100 MG TABLET PO ×3 (08:52→20:08)
--- NOTE | 2021-03-22 13:41 | HO.PSYCHPN ---
Subjective Subjective Date of Service: 03/22/21 Reason For Visit: Major Depressive Disorder Subjective Notes: Conditional Voluntary Healthcare Proxy: No Guardianship: No Medical Problems Affecting Mental Status: No Interim History: ECT #3 completed today. Pt resting/sleeping upon return. One to one continues in place. Pt reported that she engaged in SIBS in the bathroom on 03/21 while the one to one was waiting for her. Expressing pain/anger upon herself she reports. Medication Compliance: Yes (does attempt to cheek and stockpile medications) Side effects from medications: No Attending Groups: No Review of Systems Acute medical concerns: No Medical Review of Systems: unchanged Review of Systems Reports behavioral changes Psychiatric: Reports anxiety, Reports behavioral changes, Reports depression, Reports difficulty concentrating, Reports hopelessness, Reports irritability, Reports anhedonia, Reports mood swings and Reports suicidal ideation Mental Status Exam Mental Status Exam Patient Appearance: Fatigued Patient Orientation: Person, Place and Situation Level of Consciousness: Alert Patient Behavior: Dependent, Passive, Anxious and Good Eye Contact Mood Description: Depressed Affect Description: Flat Patient Cognition Impaired: No Ability to Follow Directions: Good Speech Pattern: Spontaneous Speech Memory Description: Episodic Impaired Hallucinations: None Delusions: Paranoid Ideation Perceptual Disturbances: Depersonalization and Derealization Thought Process: Distracted and Rumination Thought Content: positive for [place], positive for Perseveration and positive for Suicidal Ideation Depressive Symptoms: Increased Anxiety, Increased Irritability, Difficulty Sleeping, Changes in Appetite, Loss of Int. in Activity, Hopelessness, Isolating-Friends/Family, Unhappiness, Increased Fatigue, Thoughts of /Suicide, Low Self Esteem, Loss of Energy and Difficulty Concentrating Judgement: Fair Diagnostics Vital Signs (24Hr): Vital Signs - 24 hr 03/21/21 20:17 03/21/21 20:22 03/22/21 06:00 Temperature 97.2 F 98.2 F Pulse Rate 98 98 84 Respiratory Rate 16 16 Blood Pressure 134/74 134/74 120/74 Pulse Oximetry 99 98 03/22/21 06:22 03/22/21 07:38 03/22/21 07:43 Temperature 97.4 F 98.3 F Pulse Rate 90 75 84 Respiratory Rate 16 17 17 Blood Pressure 111/63 139/97 H 123/79 Pulse Oximetry 98 94 95 03/22/21 07:48 03/22/21 07:53 03/22/21 08:08 Temperature Pulse Rate 90 97 97 Respiratory Rate 17 17 17 Blood Pressure 130/84 127/82 125/82 Pulse Oximetry 96 96 96 03/22/21 08:23 03/22/21 08:46 Temperature 97.8 F 97.3 F Pulse Rate 90 82 Respiratory Rate 16 16 Blood Pressure 111/77 115/68 Pulse Oximetry 96 97 BMI result Body Mass Index 33.8 Labs Results: 03/16/21 07:51 03/16/21 07:51 Imaging Radiology Impressions: ITS Impressions Chest X-Ray 03/15/21 19:02 IMPRESSION: Unremarkable examination. Medications Medications Current Medications Acetaminophen (Acetaminophen 325 Mg Tablet) 650 mg PO Q6H PRN PRN Reason: Headache/Pain Mild Scale (1-3) Last Admin: 03/20/21 17:53 Dose: 650 mg Documented by: Al Hydroxide/Mg Hydroxide (Magnesium Hydrox/Alum Hydrox 30 Ml Oral.Susp) 30 ml PO Q6H PRN PRN Reason: Heartburn/Nausea Last Admin: 03/18/21 19:27 Dose: 30 ml Documented by: Aripiprazole (Aripiprazole 20 Mg Tablet) 20 mg PO DAILY [facility] Last Admin: 03/22/21 08:52 Dose: 20 mg Documented by: Bacitracin (Bacitracin Oint 14 Gm Tube) 1 appl TOPICAL BID [facility]; Protocol Last Admin: 03/22/21 08:54 Dose: Not Given Documented by: Benztropine Mesylate (Benztropine Mesylate 1 Mg Tablet) 1 mg PO BID [facility] Last Admin: 03/22/21 08:52 Dose: 1 mg Documented by: Calcium Carbonate (Calcium Carbonate 500 Mg Tablet) 500 mg PO TID PRN PRN Reason: heartburn Doxazosin Mesylate (Doxazosin Mesylate 2 Mg Tablet) 4 mg PO BEDTIME [facility]; Protocol Last Admin: 03/21/21 20:17 Dose: 4 mg Documented by: Hydroxyzine HCl (Hydroxyzine Hcl 50 Mg Tablet) 50 mg PO Q6H PRN PRN Reason: Anxiety Last Admin: 03/21/21 08:50 Dose: 50 mg Documented by: Ibuprofen (Ibuprofen 400 Mg Tablet) 400 mg PO Q8H PRN PRN Reason: mild-mod pain Last Admin: 03/21/21 05:26 Dose: 400 mg Documented by: Magnesium Hydroxide (Milk Of Magnesia 30 Ml Oral.Susp) 30 ml PO DAILY PRN PRN Reason: Constipation Omeprazole (Omeprazole 20 Mg Capsule.Dr) 20 mg PO DAILY@0630 [facility] Last Admin: 03/22/21 08:52 Dose: 20 mg Documented by: Ondansetron HCl (Ondansetron Odt 4 Mg Tab.Rapdis) 4 mg TRANSLINGU Q8H PRN PRN Reason: nausea Last Admin: 03/21/21 20:46 Dose: 4 mg Documented by: Quetiapine Fumarate (Quetiapine Fumarate 100 Mg Tablet) 100 mg PO TID [facility] Last Admin: 03/22/21 08:52 Dose: 100 mg Documented by: Quetiapine Fumarate (Quetiapine Fumarate 50 Mg Tablet) 50 mg PO Q6H PRN PRN Reason: agitation Risperidone (Risperidone 0.25 Mg Tablet) 0.25 mg PO Q4H PRN PRN Reason: assistance with grounding Last Admin: 03/21/21 20:16 Dose: 0.25 mg Documented by: Trazodone HCl (Trazodone Hcl 100 Mg Tablet) 100 mg PO BEDTIME PRN PRN Reason: Insomnia Last Admin: 03/17/21 23:49 Dose: 100 mg Documented by: Venlafaxine HCl (Venlafaxine Hcl Er 37.5 Mg Cap.Er.24h) 187.5 mg PO DAILY [facility] Last Admin: 03/22/21 08:52 Dose: 187.5 mg Documented by: Zinc Acetate/Diphenhydramine (Diphenhydramine Hcl 2 % Cream 28 Gm Tube) 1 appl TOPICAL BID PRN PRN Reason: Itching Allergies Allergies Allergy/AdvReac Type Severity Reaction Status Date / Time coconut Allergy Severe Anaphylaxis Verified 03/14/21 22:10 nut - unspecified [NUTS] Allergy Severe HIVES, Verified 03/14/21 23:05 DIFF BREATHING, THROAT SWELLS peanut Allergy Severe Anaphylaxis Verified 03/14/21 22:10 Assessment & Plan Assessment & Plan (1) TREY (generalized anxiety disorder): Status: Acute Code(s): F41.1 - Generalized anxiety disorder (2) MDD (major depressive disorder), recurrent severe, without psychosis: Status: Acute Code(s): F33.2 - Major depressive disorder, recurrent severe without psychotic features Assessment and Plan: 35 y.o. Who carries a dx of PTSD, MDD recurrent, TREY. She is a lateral transfer from [facility], admitted on 02/18/21 for depression, anxiety, and SI. Recent perceptual disturbances of 's image and voice, he from suicide 2 yr ago. Plan: Pt is here for ECT. Med reconciliation done. Pt reports she is supposed to be on doxazosin 4 mg at bedtime and 2 mg QD (this was her dose of prazosin and it was switched to doxazosin at [facility], however discharge listed doxazosin as 1 mg QHS). Will increase doxazosin to 2 mg QHS and defer to primary team for adjustments. Pt reports she is still on trileptal 300 mg BID but this was not on [facility] discharge. Pt also reports benefit on ativan 0.5 mg BID PRN for agitation, anxiety- will re-start, as this helps when pt has urges to self harm in context of anxiety and agitation. Monitor response to medications. Monitor for safety in the milieu. Discharge on stabilization. Patient seen. Chart reviewed. Discussed with team. Obtain collateral contact info?as needed 03/15/21: Increase Doxazosin to 4 mg HS. Monitor for SE. Pt asks to have 2 mg return to daytime dosing-will titrate gradually. Risperdal 0.25 mg bid prn grounding assist to manage SIBS. Medical clearance for ECT ordered-hospitalist, Chest xray, EKG, CMP, CBC Pt will move closer to nursing station as she has been struggling with her safety and working on a plan of care with team to remain safe while keeping as much of her own control as possible. Weekend Coverage: 03/16- Pt continues to endorse urges for self harm and had incident of superficial cutting this morning, told staff development coordinator rn after the event and had it dressed. Reminded pt that she has PRN riserpdal ordered and pt is willing to utilize. Will monitor for benefit. 03/17-Pt discloses urges and plan to cut herself with a staple, had this in possession and was able to give this up. Also disclosed command AH. Reports positive benefit on PRN risperdal, will increase to Q4H PRN. Encouraged coping skills. NPO orders to start at midnight for ECT tomorrow. 03/18/21 ECT completed. No medication changes today. 03/19/21 Continue current regime as pt reports cheeking/saving medications since admission Tolerated ECT 03/18/21 Continue plan of care. 03/20/21 Continue current plan of care Mindfulness exercises 03/21-non ECT day. 03/21/21 Increase Venlafaxine ER to 187.5 mg daily Encourage use of Risperdal to assist with grounding Initiated use of DBT skills with targeted handouts focused on mgt of suffering. 03/22/21 Post ECT-resting/sleeping after treatment Continue current regime. I spent 20 minutes with the patient and/or on the patient floor today, greater than?50% of which was spent counseling/coordinating care. Informed Consent: further education needed Reason for contiued inpatient stay Substantial Risk for: harm to self, inability to function and rapid decompensation
[2021-03-22] MEDS: Ibuprofen 400 MG TABLET PO (18:05)
[2021-03-22] MEDS: Doxazosin Mesylate 2 MG TABLET 4 MG PO (20:06)
[2021-03-22] MEDS: hydrOXYzine HCL 50 MG TABLET PO (20:08)
[2021-03-22] MEDS: traZODone HCL 100 MG TABLET PO (20:08)
[2021-03-23 06:00] VITALS: BP 110/66; PULSE 90; RESP 16; TEMP 36.1; O2SAT 97
[2021-03-23] MEDS: Omeprazole 20 MG CAPSULE.DR PO (06:08)
--- NOTE | 2021-03-23 06:09 | HO.PSYCHPN ---
Subjective Subjective Date of Service: 03/23/21 Reason For Visit: Major Depressive Disorder Subjective Notes: Conditional Voluntary Interim History: ECT #3 completed today. Pt resting/sleeping upon return. One to one continues in place. Pt reported that she engaged in SIBS in the bathroom on 03/21 while the one to one was waiting for her. Expressing pain/anger upon herself she reports. 03/23: Tolerated ECT well. Remains depressed and unsafe. Remains on 1:1. Sleep ok. Post -ECT JONES responded to Ibuprofen. Medication Compliance: Yes Side effects from medications: No Attending Groups: No Review of Systems Acute medical concerns: No Review of Systems Review of Systems CVS: No c/o chest pain, palpitations, no SOB ENTEROSTOMAL THERAPY NURSE: No c/o dizziness, headache GI: No c/o Nausea, Vomiting, diarrhea, constipation. Has issues with heartburn Yes all other systems are reviewed and are negative Constitutional: Denies chills and Denies fever(s) Cardiovascular: Denies chest pain, Denies palpitations, Denies dyspnea and Denies dyspnea on exertion Respiratory: Denies cough, Denies dyspnea and Denies dyspnea on exertion Gastrointestinal: Denies abdominal pain and Reports nausea Reports behavioral changes Psychiatric: Reports abnormal sleep pattern, Reports anxiety, Reports behavioral changes, Reports change in appetite, Reports depression, Reports difficulty concentrating, Reports hopelessness, Reports irritability, Reports anhedonia, Reports mood swings, Reports panic attacks, Reports suicidal ideation and Reports other (SIBS-scratching, superficial cutting) Endocrine: Denies palpitations Mental Status Exam Mental Status Exam Narrative: Patient Appearance:?Appropriate Patient Orientation:?Person, Place, Time and Situation Level of Consciousness:?Awake and Alert Patient Behavior:?Appropriate, Guarded, Talkative, Cooperative, Suspicious, Anxious, Fearful and Good Eye Contact Mood Description:?Depressed and Anxious Affect Description:?Flat Patient Cognition Impaired:?No Ability to Follow Directions:?Good Speech Pattern:?Spontaneous Speech and Soft-Spoken Memory Description:?Episodic Impaired Hallucinations:?None Delusions:?Not Present Perceptual Disturbances:?Depersonalization and Derealization Thought Process:?Rumination and Goal Oriented (I know ECT has worked for me in the past.) Thought Content:?positive for [employer] [place] [place], positive for Goal Oriented, positive for Persever[place] and positive for Suicidal Ideation (SIBS) Depressive Symptoms:?Increased Anxiety, Insomnia, Diff. Making Decisions, Difficulty Sleeping, Changes in Appetite, Significant Weight Loss (s/p bariatric surgery), Loss of Int. in Activity, Feelings of Worthlessness, Hopelessness, Unhappiness, Increased Fatigue, Low Self Esteem, Loss of Energy and Difficulty Concentrating Judgment:?Fair Patient Appearance: Fatigued Patient Orientation: Person, Place and Situation Level of Consciousness: Alert Patient Behavior: Dependent, Passive, Anxious and Good Eye Contact Mood Description: Apathetic and Depressed Affect Description: Flat Patient Cognition Impaired: No Ability to Follow Directions: Good Speech Pattern: Spontaneous Speech Memory Description: Episodic Impaired Depressive Symptoms: Feelings of Worthlessness, Increased Fatigue and Loss of Energy Judgement: Poor Diagnostics Vital Signs (24Hr): Vital Signs - 24 hr 03/22/21 06:22 03/22/21 07:38 03/22/21 07:43 Temperature 97.4 F 98.3 F Pulse Rate 90 75 84 Respiratory Rate 16 17 17 Blood Pressure 111/63 139/97 H 123/79 Pulse Oximetry 98 94 95 03/22/21 07:48 03/22/21 07:53 03/22/21 08:08 Temperature Pulse Rate 90 97 97 Respiratory Rate 17 17 17 Blood Pressure 130/84 127/82 125/82 Pulse Oximetry 96 96 96 03/22/21 08:23 03/22/21 08:46 03/22/21 17:18 Temperature 97.8 F 97.3 F 97 F Pulse Rate 90 82 97 Respiratory Rate 16 16 16 Blood Pressure 111/77 115/68 101/64 Pulse Oximetry 96 97 03/22/21 20:06 Temperature Pulse Rate 102 H Respiratory Rate Blood Pressure 123/73 Pulse Oximetry BMI result Body Mass Index 33.8 Labs Results: 03/16/21 07:51 03/16/21 07:51 Imaging Radiology Impressions: ITS Impressions Chest X-Ray 03/15/21 19:02 IMPRESSION: Unremarkable examination. Medications Medications Current Medications Acetaminophen (Acetaminophen 325 Mg Tablet) 650 mg PO Q6H PRN PRN Reason: Headache/Pain Mild Scale (1-3) Last Admin: 03/20/21 17:53 Dose: 650 mg Documented by: Al Hydroxide/Mg Hydroxide (Magnesium Hydrox/Alum Hydrox 30 Ml Oral.Susp) 30 ml PO Q6H PRN PRN Reason: Heartburn/Nausea Last Admin: 03/18/21 19:27 Dose: 30 ml Documented by: Aripiprazole (Aripiprazole 20 Mg Tablet) 20 mg PO DAILY [facility] Last Admin: 03/22/21 08:52 Dose: 20 mg Documented by: Bacitracin (Bacitracin Oint 14 Gm Tube) 1 appl TOPICAL BID [facility]; Protocol Last Admin: 03/22/21 20:44 Dose: Not Given Documented by: Benztropine Mesylate (Benztropine Mesylate 1 Mg Tablet) 1 mg PO BID [facility] Last Admin: 03/22/21 20:06 Dose: 1 mg Documented by: Calcium Carbonate (Calcium Carbonate 500 Mg Tablet) 500 mg PO TID PRN PRN Reason: heartburn Doxazosin Mesylate (Doxazosin Mesylate 2 Mg Tablet) 4 mg PO BEDTIME [facility]; Protocol Last Admin: 03/22/21 20:06 Dose: 4 mg Documented by: Hydroxyzine HCl (Hydroxyzine Hcl 50 Mg Tablet) 50 mg PO Q6H PRN PRN Reason: Anxiety Last Admin: 03/22/21 20:08 Dose: 50 mg Documented by: Ibuprofen (Ibuprofen 400 Mg Tablet) 400 mg PO Q8H PRN PRN Reason: mild-mod pain Last Admin: 03/22/21 18:05 Dose: 400 mg Documented by: Magnesium Hydroxide (Milk Of Magnesia 30 Ml Oral.Susp) 30 ml PO DAILY PRN PRN Reason: Constipation Omeprazole (Omeprazole 20 Mg Capsule.Dr) 20 mg PO DAILY@0630 [facility] Last Admin: 03/22/21 08:52 Dose: 20 mg Documented by: Ondansetron HCl (Ondansetron Odt 4 Mg Tab.Rapdis) 4 mg TRANSLINGU Q8H PRN PRN Reason: nausea Last Admin: 03/21/21 20:46 Dose: 4 mg Documented by: Quetiapine Fumarate (Quetiapine Fumarate 100 Mg Tablet) 100 mg PO TID [facility] Last Admin: 03/22/21 20:08 Dose: 100 mg Documented by: Quetiapine Fumarate (Quetiapine Fumarate 50 Mg Tablet) 50 mg PO Q6H PRN PRN Reason: agitation Risperidone (Risperidone 0.25 Mg Tablet) 0.25 mg PO Q4H PRN PRN Reason: assistance with grounding Last Admin: 03/21/21 20:16 Dose: 0.25 mg Documented by: Trazodone HCl (Trazodone Hcl 100 Mg Tablet) 100 mg PO BEDTIME PRN PRN Reason: Insomnia Last Admin: 03/22/21 20:08 Dose: 100 mg Documented by: Venlafaxine HCl (Venlafaxine Hcl Er 37.5 Mg Cap.Er.24h) 187.5 mg PO DAILY [facility] Last Admin: 03/22/21 08:52 Dose: 187.5 mg Documented by: Zinc Acetate/Diphenhydramine (Diphenhydramine Hcl 2 % Cream 28 Gm Tube) 1 appl TOPICAL BID PRN PRN Reason: Itching Allergies Allergies Allergy/AdvReac Type Severity Reaction Status Date / Time coconut Allergy Severe Anaphylaxis Verified 03/14/21 22:10 nut - unspecified [NUTS] Allergy Severe HIVES, Verified 03/14/21 23:05 DIFF BREATHING, THROAT SWELLS peanut Allergy Severe Anaphylaxis Verified 03/14/21 22:10 Assessment & Plan Assessment & Plan (1) TREY (generalized anxiety disorder): Status: Acute Code(s): F41.1 - Generalized anxiety disorder (2) MDD (major depressive disorder), recurrent severe, without psychosis: Status: Acute Code(s): F33.2 - Major depressive disorder, recurrent severe without psychotic features Assessment and Plan: 35 y.o. Who carries a dx of PTSD, MDD recurrent, TREY. She is a lateral transfer from [facility], admitted on 02/18/21 for depression, anxiety, and SI. Recent perceptual disturbances of 's image and voice, he from suicide 2 yr ago. Plan: Pt is here for ECT. Med reconciliation done. Pt reports she is supposed to be on doxazosin 4 mg at bedtime and 2 mg QD (this was her dose of prazosin and it was switched to doxazosin at [facility], however discharge listed doxazosin as 1 mg QHS). Will increase doxazosin to 2 mg QHS and defer to primary team for adjustments. Pt reports she is still on trileptal 300 mg BID but this was not on [facility] discharge. Pt also reports benefit on ativan 0.5 mg BID PRN for agitation, anxiety- will re-start, as this helps when pt has urges to self harm in context of anxiety and agitation. Monitor response to medications. Monitor for safety in the milieu. Discharge on stabilization. Patient seen. Chart reviewed. Discussed with team. Obtain collateral contact info?as needed 03/15/21: Increase Doxazosin to 4 mg HS. Monitor for SE. Pt asks to have 2 mg return to daytime dosing-will titrate gradually. Risperdal 0.25 mg bid prn grounding assist to manage SIBS. Medical clearance for ECT ordered-hospitalist, Chest xray, EKG, CMP, CBC Pt will move closer to nursing station as she has been struggling with her safety and working on a plan of care with team to remain safe while keeping as much of her own control as possible. Weekend Coverage: 03/16- Pt continues to endorse urges for self harm and had incident of superficial cutting this morning, told community health nurse staff after the event and had it dressed. Reminded pt that she has PRN riserpdal ordered and pt is willing to utilize. Will monitor for benefit. 03/17-Pt discloses urges and plan to cut herself with a staple, had this in possession and was able to give this up. Also disclosed command AH. Reports positive benefit on PRN risperdal, will increase to Q4H PRN. Encouraged coping skills. NPO orders to start at midnight for ECT tomorrow. 03/18/21 ECT completed. No medication changes today. 03/19/21 Continue current regime as pt reports cheeking/saving medications since admission Tolerated ECT 03/18/21 Continue plan of care. 03/20/21 Continue current plan of care Mindfulness exercises 03/21-non ECT day. 03/21/21 Increase Venlafaxine ER to 187.5 mg daily Encourage use of Risperdal to assist with grounding Initiated use of DBT skills with targeted handouts focused on mgt of suffering. 03/22/21 Post ECT-resting/sleeping after treatment Continue current regime. 03/23/21: Ct ECT and 1:1. Tolerating ECT well. I spent minutes with the patient and/or on the patient floor today, greater than?50% of which was spent counseling/coordinating care. Patient educated on: diagnosis Informed Consent: understands Reason for contiued inpatient stay Substantial Risk for: harm to self
[2021-03-23] MEDS: Venlafaxine HCl ER 37.5 MG CAP.ER.24H 187.5 MG PO (08:39)
[2021-03-23] MEDS: QUEtiapine Fumarate 100 MG TABLET PO ×3 (08:40→20:31)
[2021-03-23] MEDS: ARIPiprazole 20 MG TABLET PO (08:40)
[2021-03-23] MEDS: Benztropine Mesylate 1 MG TABLET PO ×2 (08:40→20:31)
[2021-03-23] MEDS: Bacitracin Oint 14 GM TUBE 1 APPL TOPICAL ×2 (08:55→20:37)
[2021-03-23 12:47] VITALS: BP 102/76; PULSE 94; O2SAT 96
[2021-03-23] MEDS: hydrOXYzine HCL 50 MG TABLET PO ×2 (14:24→20:37)
[2021-03-23] MEDS: Ondansetron ODT 4 MG TAB.RAPDIS TRANSLINGU (16:23)
[2021-03-23 17:24] VITALS: BP 112/61; PULSE 89; TEMP 36.4; O2SAT 97
[2021-03-23] MEDS: Doxazosin Mesylate 2 MG TABLET 4 MG PO (20:31)
[2021-03-23] MEDS: traZODone HCL 100 MG TABLET PO (20:31)
[2021-03-24 06:00] VITALS: BP 116/72; PULSE 74; RESP 18; TEMP 35.7; O2SAT 98
[2021-03-24] MEDS: Omeprazole 20 MG CAPSULE.DR PO (06:14)
[2021-03-24] MEDS: Venlafaxine HCl ER 37.5 MG CAP.ER.24H 187.5 MG PO (08:21)
[2021-03-24] MEDS: QUEtiapine Fumarate 100 MG TABLET PO ×3 (08:21→21:32)
[2021-03-24] MEDS: Benztropine Mesylate 1 MG TABLET PO ×2 (08:21→21:33)
[2021-03-24] MEDS: ARIPiprazole 20 MG TABLET PO (08:21)
[2021-03-24] MEDS: Bacitracin Oint 14 GM TUBE 1 APPL TOPICAL (08:22)
--- NOTE | 2021-03-24 11:20 | P.PNPSI_ITS ---
Subjective Subjective Date of Service: 03/24/21 Reason For Visit: Major Depressive Disorder Interim History: ECT #3 completed today. Pt resting/sleeping upon return. One to one continues in place. Pt reported that she engaged in SIBS in the bathroom on 03/21 while the one to one was waiting for her. Expressing pain/anger upon herself she reports. 03/23: Tolerated ECT well. Remains depressed and unsafe. Remains on 1:1. Sleep ok. Post -ECT JONES responded to Ibuprofen. 03/24: Remains depressed. On 1:1 asked about ECT course and educated on length and expectations. No further SIB. 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 Has issues with heartburn Yes all other systems are reviewed and are negative Constitutional: Denies chills and Denies fever(s) Cardiovascular: Denies chest pain, Denies palpitations, Denies dyspnea and Denies dyspnea on exertion Respiratory: Denies cough, Denies dyspnea and Denies dyspnea on exertion Gastrointestinal: Denies abdominal pain and Reports nausea Reports behavioral changes Psychiatric: Reports abnormal sleep pattern, Reports anxiety, Reports behavioral changes, Reports change in appetite, Reports depression, Reports difficulty concentrating, Reports hopelessness, Reports irritability, Reports anhedonia, Re ports mood swings, Reports panic attacks, Reports suicidal ideation and Reports other (SIBS-scratching, superficial cutting) Endocrine: Denies palpitations Mental Status Exam Mental Status Exam Narrative: Patient Appearance:?Appropriate Patient Orientation:?Person, Place, Time and Situation Level of Consciousness:?Awake and Alert Patient Behavior:?Appropriate, Guarded, Talkative, Cooperative, Suspicious, Anxious, Fearful and Good Eye Contact Mood Description:?Depressed and Anxious Affect Description:?Flat Patient Cognition Impaired:?No Ability to Follow Directions:?Good Speech Pattern:?Spontaneous Speech and Soft-Spoken Memory Description:?Episodic Impaired Hallucinations:?None Delusions:?Not Present Perceptual Disturbances:?Depersonalization and Derealization Thought Process:?Rumination and Goal Oriented (I know ECT has worked for me in the past.) Thought Content:?positive for [place], positive for Goal Oriented, positive for Perseveration and positive for Suicidal Ideation (SIBS) Depressive Symptoms:?Increased Anxiety, Insomnia, Diff. Making Decisions, Difficulty Sleeping, Changes in Appetite, Significant Weight Loss (s/p bariatric surgery), Loss of Int. in Activity, Feelings of Worthlessness, Hopelessness, Unhappiness, Increased Fatigue, Low Self Esteem, Loss of Energy and Difficulty Concentrating Judgment:?Fair Patient Appearance: Fatigued Patient Orientation: Person, Place and Situation Level of Consciousness: Alert Patient Behavior: Dependent, Passive, Anxious and Good Eye Contact Mood Description: Apathetic and Depressed Affect Description: Flat Patient Cognition Impaired: No Ability to Follow Directions: Good Speech Pattern: Spontaneous Speech Memory Description: Episodic Impaired Diagnostics Vital Signs (24Hr): Vital Signs - 24 hr 03/23/21 12:47 03/23/21 17:24 03/24/21 06:00 Temperature 97.6 F 96.3 F L Pulse Rate 94 89 74 Respiratory Rate 18 Blood Pressure 102/76 112/61 116/72 Pulse Oximetry 96 97 98 BMI result Body Mass Index 33.8 Labs Results: 03/16/21 07:51 03/16/21 07:51 Imaging Radiology Impressions: ITS Impressions Chest X-Ray 03/15/21 19:02 IMPRESSION: Unremarkable examination. Medications Medications Current Medications Acetaminophen (Acetaminophen 325 Mg Tablet) 650 mg PO Q6H PRN PRN Reason: Headache/Pain Mild Scale (1-3) Last Admin: 03/20/21 17:53 Dose: 650 mg Documented by: Al Hydroxide/Mg Hydroxide (Magnesium Hydrox/Alum Hydrox 30 Ml Oral.Susp) 30 ml PO Q6H PRN PRN Reason: Heartburn/Nausea Last Admin: 03/18/21 19:27 Dose: 30 ml Documented by: Aripiprazole (Aripiprazole 20 Mg Tablet) 20 mg PO DAILY [facility] Last Admin: 03/24/21 08:21 Dose: 20 mg Documented by: Bacitracin (Bacitracin Oint 14 Gm Tube) 1 appl TOPICAL BID JEFFREY; Protocol Last Admin: 03/24/21 08:22 Dose: 1 appl Documented by: Benzocaine (Throat Lozenge, Medicated Lozenge) 1 lozenge MUCOUS MEM Q2H PRN PRN Reason: Sore Throat Benztropine Mesylate (Benztropine Mesylate 1 Mg Tablet) 1 mg PO BID [facility] Last Admin: 03/24/21 08:21 Dose: 1 mg Documented by: Calcium Carbonate (Calcium Carbonate 500 Mg Tablet) 500 mg PO TID PRN PRN Reason: heartburn Doxazosin Mesylate (Doxazosin Mesylate 2 Mg Tablet) 4 mg PO BEDTIME JEFFREY; Prot ocol Last Admin: 03/23/21 20:31 Dose: 4 mg Documented by: Hydroxyzine HCl (Hydroxyzine Hcl 50 Mg Tablet) 50 mg PO Q6H PRN PRN Reason: Anxiety Last Admin: 03/23/21 20:37 Dose: 50 mg Documented by: Ibuprofen (Ibuprofen 400 Mg Tablet) 400 mg PO Q8H PRN PRN Reason: mild-mod pain Last Admin: 03/22/21 18:05 Dose: 400 mg Documented by: Magnesium Hydroxide (Milk Of Magnesia 30 Ml Oral.Susp) 30 ml PO DAILY PRN PRN Reason: Constipation Omeprazole (Omeprazole 20 Mg Capsule.Dr) 20 mg PO DAILY@0630 [facility] Last Admin: 03/24/21 06:14 Dose: 20 mg Documented by: Ondansetron HCl (Ondansetron Odt 4 Mg Tab.Rapdis) 4 mg TRANSLINGU Q8H PRN PRN Reason: nausea Last Admin: 03/23/21 16:23 Dose: 4 mg Documented by: Quetiapine Fumarate (Quetiapine Fumarate 100 Mg Tablet) 100 mg PO TID [facility] Last Admin: 03/24/21 08:21 Dose: 100 mg Documented by: Quetiapine Fumarate (Quetiapine Fumarate 50 Mg Tablet) 50 mg PO Q6H PRN PRN Reason: agitation Risperidone (Risperidone 0.25 Mg Tablet) 0.25 mg PO Q4H PRN PRN Reason: assistance with grounding Last Admin: 03/21/21 20:16 Dose: 0.25 mg Documented by: Trazodone HCl (Trazodone Hcl 100 Mg Tablet) 100 mg PO BEDTIME PRN PRN Reason: Insomnia Last Admin: 03/23/21 20:31 Dose: 100 mg Documented by: Venlafaxine HCl (Venlafaxine Hcl Er 37.5 Mg Cap.Er.24h) 187.5 mg PO DAILY [facility] Last Admin: 03/24/21 08:21 Dose: 187.5 mg Documented by: Zinc Acetate/Diphenhydramine (Diphenhydramine Hcl 2 % Cream 28 Gm Tube) 1 appl TOPICAL BID PRN PRN Reason: Itching Allergies Allergies Allergy/AdvReac Type Severity Reaction Status Date / Time coconut Allergy Severe Anaphylaxis Verified 03/14/21 22:10 nut - unspecified [NUTS] Allergy Severe HIVES, Verified 03/14/21 23:05 DIFF BREATHING, THROAT SWELLS peanut Allergy Severe Anaphylaxis Verified 03/14/21 22:10 Assessment & Plan Assessment & Plan (1) TREY (generalized anxiety disorder): Status: Acute Code(s): F41.1 - Generalized anxiety disorder (2) MDD (major depressive disorder), recurrent severe, without psychosis: Status: Acute Code(s): F33.2 - Major depressive disorder, recurrent severe without psychotic features Assessment and Plan: 35 y.o. Who carries a dx of PTSD, MDD recurrent, TREY. She is a lateral transfer from [facility], admitted on 02/18/21 for depression, anxiety, and SI. Recent perceptual disturbances of 's image and voice, he from suicide 2 yr ago. Plan: Pt is here for ECT. Med reconciliation done. Pt reports she is supposed to be on doxazosin 4 mg at bedtime and 2 mg QD (this was her dose of prazosin and it was switched to doxazosin at [facility], however discharge listed doxazosin as 1 mg QHS). Will increase doxazosin to 2 mg QHS and defer to primary team for adjustments. Pt reports she is still on trileptal 300 mg BID but this was not on [facility] discharge. Pt also reports benefit on ativan 0.5 mg BID PRN for agitation, anxiety- will re-start, as this helps when pt has urges to self harm in context of anxiety and agitation. Monitor response to medications. Monitor for safety in the milieu. Discharge on stabilization. Patient seen. Chart reviewed. Discussed with team. Obtain collateral contact info?as needed 03/15/21: Increase Doxazosin to 4 mg HS. Monitor for SE. Pt asks to have 2 mg return to daytime dosing-will titrate gradually. Risperdal 0.25 mg bid prn grounding assist to manage SIBS. Medical clearance for ECT ordered-hospitalist, Chest xray, EKG, CMP, CBC Pt will move closer to nursing station as she has been struggling with her safety and working on a plan of care with team to remain safe while keeping as much of her own control as possible. Weekend Coverage: 03/16- Pt continues to endorse urges for self harm and had incident of superficial cutting this morning, told staffing program manager after the event and had it dressed. Reminded pt that she has PRN riserpdal ordered and pt is willing to utilize. Will monitor for benefit. 03/17-Pt discloses urges and plan to cut herself with a staple, had this in possession and was able to give this up. Also disclosed command AH. Reports positive benefit on PRN risperdal, will increase to Q4H PRN. Encouraged coping skills. NPO orders to start at midnight for ECT tomorrow. 03/18/21 ECT completed. No medication changes today. 03/19/21 Continue current regime as pt reports cheeking/saving medications since admission Tolerated ECT 03/18/21 Continue plan of care. 03/20/21 Continue current plan of care Mindfulness exercises 03/21-non ECT day. 03/21/21 Increase Venlafaxine ER to 187.5 mg daily Encourage use of Risperdal to assist with grounding Initiated use of DBT skills with targeted handouts focused on mgt of suffering. 03/22/21 Post ECT-resting/sleeping after treatment Continue current regime. 03/23/21: Ct ECT and 1:1. Tolerating ECT well. 03/24/21: Ct ECT/1:1. I spent minutes with the patient and/or on the patient floor today, greater than?50% of which was spent counseling/coordinating care. Reason for contiued inpatient stay Substantial Risk for: harm to self
[2021-03-24] MEDS: Throat Lozenge, Medicated LOZENGE 1 LOZENGE MUCOUS MEM ×2 (13:59→18:59)
[2021-03-24 17:05] VITALS: BP 110/69; PULSE 92; RESP 18; TEMP 36.2; O2SAT 97
[2021-03-24] MEDS: risperiDONE 0.25 MG TABLET PO (18:59)
[2021-03-24 21:33] VITALS: BP 112/65; PULSE 98
[2021-03-24] MEDS: Doxazosin Mesylate 2 MG TABLET 4 MG PO (21:33)
[2021-03-25] VITALS (10 sets, daily range): BP systolic 108–158; BP diastolic 65–99; PULSE 67–100; RESP 15–20; TEMP 36.4–37.1; O2SAT 95–98
[2021-03-25] MEDS: hydrOXYzine HCL 50 MG TABLET PO ×2 (03:24→20:44)
--- NOTE | 2021-03-25 06:57 | HO.ANESPROP2 ---
[facility] Active Problems Active Problems: All Active Problems (Updated 03/16/21 @ 16:28 by KAYDEN Jeter) MDD (major depressive disorder), recurrent severe, without psychosis (Acute) TREY (generalized anxiety disorder) (Acute) Past Medical History Medical History TREY (generalized anxiety disorder) GERD (gastroesophageal reflux disease) HTN (hypertension) MDD (major depressive disorder), recurrent severe, without psychosis MARIA TERESA (obstructive sleep apnea) Post traumatic stress disorder (PTSD) Functional capacity: independent ambulation Family History Family History Mother Heart disease Family history of problems with anesthesia: No Surgical History Surgical History H/O gastric bypass Hx of cholecystectomy History of Problems with Anesthesia: No Social History Social History Household Members: Other Household Members Other:: 17 yo daughter Housing: Apartment Do you presently have visiting nurse or other home services: No Alcohol intake: current Alcohol intake frequency: holidays/special occasions only Patient Tobacco Use Status: Never used Tobacco Use of substances other than those prescribed or required for medical reasons: No Currently Displaying Signs/Symptoms of Drug Intoxication Withdrawal: No Have you been hit, kicked, punched, or otherwise hurt by someone within the past year? If so, by whom?: No Do you feel safe in your current relationship?: Yes Is there a partner from a previous relationship who is making you feel unsafe now?: No Are you made to feel afraid or neglected: No Are you DNR?: No Advance Directives: No Advance Directives Information Provided: No Advance Directives on File: No Do you have thoughts of harming others: None Do you have a plan to hurt others: No Plan Recently lost weight without trying: No Eating poorly because of decreased appetite: No Nutrition Risks: No Nutritional Risk Patient : No : No Poor oral hygiene: No service: No Sexual orientation: Did not discuss Meds Allergies Allergy/AdvReac Type Severity Reaction Status Date / Time coconut Allergy Severe Anaphylaxis Verified 03/14/21 22:10 nut - unspecified [NUTS] Allergy Severe HIVES, Verified 03/14/21 23:05 DIFF BREATHING, THROAT SWELLS peanut Allergy Severe Anaphylaxis Verified 03/14/21 22:10 Active Medications: Current Medications Acetaminophen (Acetaminophen 325 Mg Tablet) 650 mg PO Q6H PRN PRN Reason: Headache/Pain Mild Scale (1-3) Last Admin: 03/20/21 17:53 Dose: 650 mg Documented by: Al Hydroxide/Mg Hydroxide (Magnesium Hydrox/Alum Hydrox 30 Ml Oral.Susp) 30 ml PO Q6H PRN PRN Reason: Heartburn/Nausea Last Admin: 03/18/21 19:27 Dose: 30 ml Documented by: Aripiprazole (Aripiprazole 20 Mg Tablet) 20 mg PO DAILY [facility] Last Admin: 03/24/21 08:21 Dose: 20 mg Documented by: Bacitracin (Bacitracin Oint 14 Gm Tube) 1 appl TOPICAL BID [facility]; Protocol Last Admin: 03/24/21 22:13 Dose: Not Given Documented by: Benzocaine (Throat Lozenge, Medicated Lozenge) 1 lozenge MUCOUS MEM Q2H PRN PRN Reason: Sore Throat Last Admin: 03/24/21 18:59 Dose: 1 lozenge Documented by: Benztropine Mesylate (Benztropine Mesylate 1 Mg Tablet) 1 mg PO BID [facility] Last Admin: 03/24/21 21:33 Dose: 1 mg Documented by: Calcium Carbonate (Calcium Carbonate 500 Mg Tablet) 500 mg PO TID PRN PRN Reason: heartburn Doxazosin Mesylate (Doxazosin Mesylate 2 Mg Tablet) 4 mg PO BEDTIME [facility]; Protocol Last Admin: 03/24/21 21:33 Dose: 4 mg Documented by: Hydroxyzine HCl (Hydroxyzine Hcl 50 Mg Tablet) 50 mg PO Q6H PRN PRN Reason: Anxiety Last Admin: 03/25/21 03:24 Dose: 50 mg Documented by: Ibuprofen (Ibuprofen 400 Mg Tablet) 400 mg PO Q8H PRN PRN Reason: mild-mod pain Last Admin: 03/22/21 18:05 Dose: 400 mg Documented by: Magnesium Hydroxide (Milk Of Magnesia 30 Ml Oral.Susp) 30 ml PO DAILY PRN PRN Reason: Constipation Omeprazole (Omeprazole 20 Mg Capsule.Dr) 20 mg PO DAILY@0630 [facility] Last Admin: 03/24/21 06:14 Dose: 20 mg Documented by: Ondansetron HCl (Ondansetron Odt 4 Mg Tab.Rapdis) 4 mg TRANSLINGU Q8H PRN PRN Reason: nausea Last Admin: 03/23/21 16:23 Dose: 4 mg Documented by: Quetiapine Fumarate (Quetiapine Fumarate 100 Mg Tablet) 100 mg PO TID [facility] Last Admin: 03/24/21 21:32 Dose: 100 mg Documented by: Quetiapine Fumarate (Quetiapine Fumarate 50 Mg Tablet) 50 mg PO Q6H PRN PRN Reason: agitation Risperidone (Risperidone 0.25 Mg Tablet) 0.25 mg PO Q4H PRN PRN Reason: assistance with grounding Last Admin: 03/24/21 18:59 Dose: 0.25 mg Documented by: Trazodone HCl (Trazodone Hcl 100 Mg Tablet) 100 mg PO BEDTIME PRN PRN Reason: Insomnia Last Admin: 03/23/21 20:31 Dose: 100 mg Documented by: Venlafaxine HCl (Venlafaxine Hcl Er 37.5 Mg Cap.Er.24h) 187.5 mg PO DAILY [facility] Last Admin: 03/24/21 08:21 Dose: 187.5 mg Documented by: Zinc Acetate/Diphenhydramine (Diphenhydramine Hcl 2 % Cream 28 Gm Tube) 1 appl TOPICAL BID PRN PRN Reason: Itching Home Medications Medication Instructions Recorded Confirmed Last Taken Type trazodone 100 mg PO BEDTIME 03/15/21 03/15/21 Unknown History Exam Exam Date and Time: March 25, 2021 0657 Height,Weight and Vital Signs: Height 5 ft 2 in Weight 83.915 kg Last Vital Signs Temp 97.6 F 03/25/21 06:27 Pulse 92 03/25/21 06:27 Resp 20 03/25/21 06:27 BP 117/65 03/25/21 06:27 Pulse Ox 97 03/25/21 06:27 Pertinent Lab Results Pertinent Lab Results: Laboratory Tests 03/15/21 03/15/21 03/15/21 07:48 07:48 07:48 WBC RBC Hgb Hct MCV MCH MCHC RDW Plt Count MPV Immature Gran % (Auto) Neut % (Auto) Lymph % (Auto) [place] % (Auto) Eos % (Auto) Baso % (Auto) Lymph # (Auto) [place] # (Auto) Eos # (Auto) Baso # (Auto) Abs Immat Gran (auto) Absolute Neuts (auto) Absolute Nucleated RBC Nucleated RBC % (auto) Sodium Potassium Chloride Carbon Dioxide Anion Gap BUN Creatinine Estim Creat Clear Calc Estimated GFR Random Glucose Estimat Average Glucose 82 Hemoglobin A1c % 4.5 Calcium Magnesium 2.0 Total Bilirubin 0.5 Direct Bilirubin 0.2 AST 27 ALT 28 Alkaline Phosphatase 81 Total Protein 6.4 L Albumin 3.9 Triglycerides 186 Cholesterol 196 LDL Cholesterol, Calc 95 HDL Cholesterol 64 Vitamin B12 342 Folate 12.3 TSH 1.14 Free T4 0.66 L 03/16/21 03/16/21 07:51 07:51 WBC 6.9 RBC 4.87 Hgb 14.8 Hct 45.8 MCV 94.0 MCH 30.4 MCHC 32.3 RDW 13.2 Plt Count 297 MPV 10.6 Immature Gran % (Auto) 0.1 Neut % (Auto) 49.0 Lymph % (Auto) 37.8 [place] % (Auto) 8.9 Eos % (Auto) 3.5 Baso % (Auto) 0.7 Lymph # (Auto) 2.6 [place] # (Auto) 0.6 Eos # (Auto) 0.2 Baso # (Auto) 0.1 Abs Immat Gran (auto) 0.01 Absolute Neuts (auto) 3.4 Absolute Nucleated RBC 0.000 Nucleated RBC % (auto) 0.0 Sodium 144 Potassium 4.0 Chloride 106 Carbon Dioxide 29 Anion Gap 13 BUN 7 L Creatinine 0.82 Estim Creat Clear Calc TNP Estimated GFR > 60 Random Glucose 85 Estimat Average Glucose Hemoglobin A1c % Calcium 9.7 Magnesium Total Bilirubin 0.4 Direct Bilirubin AST 25 ALT 25 Alkaline Phosphatase 79 Total Protein 6.7 Albumin 4.0 Triglycerides Cholesterol LDL Cholesterol, Calc HDL Cholesterol Vitamin B12 Folate TSH Free T4 Airway Mallampati Class: II TM Dist: >3cm Neck ROM: Full Heart: rrr Lungs: cta Assessment and Plan Assessment Anesthesia Assessment: Anesthesia Plan Discussed and Chart Reviewed Final Anesthetic Review Family History of Problems with Anesthesia: No History of Problems with Anesthesia: No NPO: Yes ASA Class: III Final Preanesthetic Review: No Changes in Pt Med Stat, Meds/Allgs Chart Reviewed and Consent Obtained/Reviewed Patient Risk: Intermediate Procedure Risk: Intermediate Anesthetic Plan Anesthetic Plan: GA Disposition: Standard PACU
--- NOTE | 2021-03-25 07:24 | MHC.SHP ---
Pre-Procedural Eval Section A Date of Service: 03/25/21 The patient is an INPATIENT: Yes Changes since office visit: No Cold of Flu in the past 2 weeks, No New Medical Problems, No Changes in Medication and No Patient answered all questions The History & Physical has been completed within 30 days and I have reviewed it.: Yes Section B Chief Complaint: Major Depressive Disorder Allergies: Allergies Allergy/AdvReac Type Severity Reaction Status Date / Time coconut Allergy Severe Anaphylaxis Verified 03/14/21 22:10 nut - unspecified [NUTS] Allergy Severe HIVES, Verified 03/14/21 23:05 DIFF BREATHING, THROAT SWELLS peanut Allergy Severe Anaphylaxis Verified 03/14/21 22:10 Plan I have reviewed the history and physical and performed a pertinent physical examination on my patient. No changes have occurred unless specified.
--- NOTE | 2021-03-25 07:26 | HO.ECTPROC ---
ECT Procedure Note Diagnosis/Treatment Date of Service: 03/25/21 Diagnosis: Major Depressive Disorder and Other (PTSD, Cluster B traits) Previous ECT Date: 03/22/21 Current Treatment Number: 4 Treatment: Series Interval Clinical Notes: The patient remains depressed with sporadic SI. ECT Settings Device: THYMATRON DGx Electrode Placement: Bitemporal Program/Pulse Width: 0.50 Energy Percent: 100 Seizure Duration By EEG (in seconds): 18 By Motor Observation (in seconds): 16 Medications Administration General Anesthetic: Etomidate (12) Muscle Relaxant: Succinylcholine (100) Ancillary Medications Analgesics: Torodol - Pre ECT Anti-emetics: Zofran - Pre ECT Airway Management Airway Management: Bag Mask Ventilation Treatment Recommendations No Changes Recommended: No change
[2021-03-25] MEDS: Omeprazole 20 MG CAPSULE.DR PO (08:39)
[2021-03-25] MEDS: Venlafaxine HCl ER 37.5 MG CAP.ER.24H 187.5 MG PO (08:39)
[2021-03-25] MEDS: Benztropine Mesylate 1 MG TABLET PO ×2 (08:39→21:46)
[2021-03-25] MEDS: ARIPiprazole 20 MG TABLET PO (08:39)
[2021-03-25] MEDS: QUEtiapine Fumarate 100 MG TABLET PO ×3 (08:39→21:46)
[2021-03-25] MEDS: Throat Lozenge, Medicated LOZENGE 1 LOZENGE MUCOUS MEM ×2 (11:54→17:50)
--- NOTE | 2021-03-25 13:48 | P.PNPSI_ITS ---
Subjective Subjective Date of Service: 03/25/21 Reason For Visit: Major Depressive Disorder Subjective Notes: Conditional Voluntary Healthcare Proxy: No Guardianship: No Medical Problems Affecting Mental Status: No Interim History: Pt remains on one to one with her reports of no improvement in symptoms. ECT today. Pt resting/napping most of the day. Continues to have thoughts of self-harm with no gesturing reported per team over the weekend. Medication Compliance: Yes Side effects from medications: No Attending Groups: Yes (attended over the weekend per team) Review of Systems Acute medical concerns: No Medical Review of Systems: unchanged Review of Systems Psychiatric: Reports anxiety, Reports depression, Reports difficulty concentrating, Reports hopelessness, Reports anhedonia and Reports suicidal ideation Mental Status Exam Mental Status Exam Patient Appearance: Fatigued Patient Orientation: Person, Place, Time and Situation Level of Consciousness: Awake, Drowsy, Sedated and Lethargic Patient Behavior: Cooperative, Passive, Asleep, Sedated, Avoidant, Fatigued, Isolative and Good Eye Contact Mood Description: Depressed Affect Description: Flat Patient Cognition Impaired: No Ability to Follow Directions: Fair Speech Pattern: Spontaneous Speech and Soft-Spoken Memory Description: Episodic Impaired Hallucinations: None Delusions: Not Present Perceptual Disturbances: Depersonalization and Derealization Thought Process: Distracted and Rumination Thought Content: positive for [place], positive for Circumstantial, positive for Perseveration, positive for Slowed Thinking and positive for Suicidal Ideation Depressive Symptoms: Increased Anxiety, Diff. Making Decisions, Sleeping More Than Usual, Loss of Int. in Activity, Hopelessness, Unhappiness, Increased Fatigue, Thoughts of /Suicide, Low Self Esteem, Loss of Energy and Difficulty Concentrating Judgement: Poor Diagnostics Vital Signs (24Hr): Vital Signs - 24 hr 03/24/21 17:05 03/24/21 21:33 03/25/21 06:15 Temperature 97.2 F 98.2 F Pulse Rate 92 98 88 Respiratory Rate 18 18 Blood Pressure 110/69 112/65 124/65 Pulse Oximetry 97 97 03/25/21 06:27 03/25/21 07:44 03/25/21 07:49 Temperature 97.6 F 98.7 F Pulse Rate 92 67 82 Respiratory Rate 20 15 17 Blood Pressure 117/65 158/99 H 131/86 Pulse Oximetry 97 98 97 03/25/21 07:54 03/25/21 07:58 03/25/21 08:13 Temperature 98.7 F Pulse Rate 99 100 97 Respiratory Rate 18 20 20 Blood Pressure 134/90 H 135/90 H 135/88 Pulse Oximetry 95 95 96 03/25/21 08:58 Temperature Pulse Rate 95 Respiratory Rate 16 Blood Pressure 108/71 Pulse Oximetry 95 BMI result Body Mass Index 33.8 Labs Results: 03/16/21 07:51 03/16/21 07:51 Imaging Radiology Impressions: ITS Impressions Chest X-Ray 03/15/21 19:02 IMPRESSION: Unremarkable examination. Medications Medications Current Medications Acetaminophen (Acetaminophen 325 Mg Tablet) 650 mg PO Q6H PRN PRN Reason: Headache/Pain Mild Scale (1-3) Last Admin: 03/20/21 17:53 Dose: 650 mg Documented by: Al Hydroxide/Mg Hydroxide (Magnesium Hydrox/Alum Hydrox 30 Ml Oral.Susp) 30 ml PO Q6H PRN PRN Reason: Heartburn/Nausea Last Admin: 03/18/21 19:27 Dose: 30 ml Documented by: Aripiprazole (Aripiprazole 20 Mg Tablet) 20 mg PO DAILY JEFFREY Last Admin: 03/25/21 08:39 Dose: 20 mg Documented by: Bacitracin (Bacitracin Oint 14 Gm Tube) 1 appl TOPICAL BID JEFFREY; Protocol Last Admin: 03/25/21 08:42 Dose: Not Given Documented by: Benzocaine (Throat Lozenge, Medicated Lozenge) 1 lozenge MUCOUS MEM Q2H PRN PRN Reason: Sore Throat Last Admin: 03/25/21 11:54 Dose: 1 lozenge Documented by: Benztropine Mesylate (Benztropine Mesylate 1 Mg Tablet) 1 mg PO BID JEFFREY Last Admin: 03/25/21 08:39 Dose: 1 mg Documented by: Calcium Carbonate (Calcium Carbonate 500 Mg Tablet) 500 mg PO TID PRN PRN Reason: heartburn Doxazosin Mesylate (Doxazosin Mesylate 2 Mg Tablet) 4 mg PO BEDTIME JEFFREY; Protocol Last Admin: 03/24/21 21:33 Dose: 4 mg Documented by: Hydroxyzine HCl (Hydroxyzine Hcl 50 Mg Tablet) 50 mg PO Q6H PRN PRN Reason: Anxiety Last Admin: 03/25/21 03:24 Dose: 50 mg Documented by: Ibuprofen (Ibuprofen 400 Mg Tablet) 400 mg PO Q8H PRN PRN Reason: mild-mod pain Last Admin: 03/22/21 18:05 Dose: 400 mg Documented by: Magnesium Hydroxide (Milk Of Magnesia 30 Ml Oral.Susp) 30 ml PO DAILY PRN PRN Reason: Constipation Omeprazole (Omeprazole 20 Mg Capsule.Dr) 20 mg PO DAILY@0630 [facility] Last Admin: 03/25/21 08:39 Dose: 20 mg Documented by: Ondansetron HCl (Ondansetron Odt 4 Mg Tab.Rapdis) 4 mg TRANSLINGU Q8H PRN PRN Reason: nausea Last Admin: 03/23/21 16:23 Dose: 4 mg Documented by: Quetiapine Fumarate (Quetiapine Fumarate 100 Mg Tablet) 100 mg PO TID [facility] Last Admin: 03/25/21 08:39 Dose: 100 mg Documented by: Quetiapine Fumarate (Quetiapine Fumarate 50 Mg Tablet) 50 mg PO Q6H PRN PRN Reason: agitation Risperidone (Risperidone 0.25 Mg Tablet) 0.25 mg PO Q4H PRN PRN Reason: assistance with grounding Last Admin: 03/24/21 18:59 Dose: 0.25 mg Documented by: Trazodone HCl (Trazodone Hcl 100 Mg Tablet) 100 mg PO BEDTIME PRN PRN Reason: Insomnia Last Admin: 03/23/21 20:31 Dose: 100 mg Documented by: Venlafaxine HCl (Venlafaxine Hcl Er 37.5 Mg Cap.Er.24h) 187.5 mg PO DAILY [facility] Last Admin: 03/25/21 08:39 Dose: 187.5 mg Documented by: Zinc Acetate/Diphenhydramine (Diphenhydramine Hcl 2 % Cream 28 Gm Tube) 1 appl TOPICAL BID PRN PRN Reason: Itching Allergies Allergies Allergy/AdvReac Type Severity Reaction Status Date / Time coconut Allergy Severe Anaphylaxis Verified 03/14/21 22:10 nut - unspecified [NUTS] Allergy Severe HIVES, Verified 03/14/21 23:05 DIFF BREATHING, THROAT SWELLS peanut Allergy Severe Anaphylaxis Verified 03/14/21 22:10 Assessment & Plan Assessment & Plan (1) TREY (generalized anxiety disorder): Status: Acute Code(s): F41.1 - Generalized anxiety disorder (2) MDD (major depressive disorder), recurrent severe, without psychosis: Status: Acute Code(s): F33.2 - Major depressive disorder, recurrent severe without psychotic features Assessment and Plan: 35 y.o. Who carries a dx of PTSD, MDD recurrent, TREY. She is a lateral transfer from [facility], admitted on 02/18/21 for depression, anxiety, and SI. Recent perceptual disturbances of 's image and voice, he from suicide 2 yr ago. Plan: Pt is here for ECT. Med reconciliation done. Pt reports she is supposed to be on doxazosin 4 mg at bedtime and 2 mg QD (this was her dose of prazosin and it was switched to doxazosin at [facility], however discharge listed doxazosin as 1 mg QHS). Will increase doxazosin to 2 mg QHS and defer to primary team for adjustments. Pt reports she is still on trileptal 300 mg BID but this was not on [facility] discharge. Pt also reports benefit on ativan 0.5 mg BID PRN for agitation, anxiety- will re-start, as this helps when pt has urges to self harm in context of anxiety and agitation. Monitor response to medications. Monitor for safety in the milieu. Discharge on stabilization. Patient seen. Chart reviewed. Discussed with team. Obtain collateral contact info?as needed 03/15/21: Increase Doxazosin to 4 mg HS. Monitor for SE. Pt asks to have 2 mg return to daytime dosing-will titrate gradually. Risperdal 0.25 mg bid prn grounding assist to manage SIBS. Medical clearance for ECT ordered-hospitalist, Chest xray, EKG, CMP, CBC Pt will move closer to nursing station as she has been struggling with her safety and working on a plan of care with team to remain safe while keeping as much of her own control as possible. Weekend Coverage: 03/16- Pt continues to endorse urges for self harm and had incident of superficial cutting this morning, told nurse staff industrial after the event and had it dressed. Reminded pt that she has PRN riserpdal ordered and pt is willing to utilize. Will monitor for benefit. 03/17-Pt discloses urges and plan to cut herself with a staple, had this in possession and was able to give this up. Also disclosed command AH. Reports positive benefit on PRN risperdal, will increase to Q4H PRN. Encouraged coping skills. NPO orders to start at midnight for ECT tomorrow. 03/18/21 ECT completed. No medication changes today. 03/19/21 Continue current regime as pt reports cheeking/saving medications since admission Tolerated ECT 03/18/21 Continue plan of care. 03/20/21 Continue current plan of care Mindfulness exercises 03/21-non ECT day. 03/21/21 Increase Venlafaxine ER to 187.5 mg daily Encourage use of Risperdal to assist with grounding Initiated use of DBT skills with targeted handouts focused on mgt of suffering. 03/22/21 Post ECT-resting/sleeping after treatment Continue current regime. 03/23/21: Ct ECT and 1:1. Tolerating ECT well. 03/24/21: Ct ECT/1:1. 03/25/21: ECT Today. Pt resting/napping most of the day. Team report no active self-harm throughout the weekend, just thoughts however pt reports no improvement. Continue current plan. I spent 20 minutes with the patient and/or on the patient floor today, greater than?50% of which was spent counseling/coordinating care. Patient educated on: medical condition Informed Consent: understands Reason for contiued inpatient stay Substantial Risk for: harm to self, inability to function and rapid decompensation
[2021-03-25] MEDS: Acetaminophen 325 MG TABLET 650 MG PO (17:50)
[2021-03-25] MEDS: Doxazosin Mesylate 2 MG TABLET 4 MG PO (21:46)
[2021-03-26] MEDS: Venlafaxine HCl ER 37.5 MG CAP.ER.24H 187.5 MG PO (08:38)
[2021-03-26] MEDS: Omeprazole 20 MG CAPSULE.DR PO (08:38)
[2021-03-26] MEDS: Benztropine Mesylate 1 MG TABLET PO ×2 (08:38→19:46)
[2021-03-26] MEDS: ARIPiprazole 20 MG TABLET PO (08:38)
[2021-03-26] MEDS: QUEtiapine Fumarate 100 MG TABLET PO ×3 (08:38→19:46)
[2021-03-26] MEDS: Bacitracin Oint 14 GM TUBE 1 APPL TOPICAL (08:39)
[2021-03-26] MEDS: Throat Lozenge, Medicated LOZENGE 1 LOZENGE MUCOUS MEM ×2 (11:13→14:55)
[2021-03-26 18:29] LABS: IDNOW Serial# 9DD0AD1C; Strep A Nucleic Acid Positive (Negative)
[2021-03-26 19:44] VITALS: BP 116/65; PULSE 107
[2021-03-26] MEDS: Doxazosin Mesylate 2 MG TABLET 4 MG PO (19:44)
--- NOTE | 2021-03-26 21:30 | HO.PSYCHPN ---
Subjective Subjective Date of Service: 03/26/21 Reason For Visit: Major Depressive Disorder Subjective Notes: Conditional Voluntary Healthcare Proxy: No Guardianship: No Medical Problems Affecting Mental Status: No Interim History: Somewhat better Still having thoughts Picking at wrist injuries during our meeting. Reports she is looking forward to her dad bringing [employer] food and [employer] on Thursday. Reports she is tolerating ECT, not too much memory loss denies headache, just tired you know . Denies active SI, perceptual alterations, affirms depressive sx, thoughts of self-harm continue to help with relief Reports some relief from recent Venlafaxine titration. Denies SE Medication Compliance: Yes Side effects from medications: No Attending Groups: Intermittent Review of Systems Acute medical concerns: No Later in the evening team paged tw-pt reporting sore throat-ordered culture and medicated spray. Medical Review of Systems: unchanged Review of Systems Reports sore throat Psychiatric: Reports anxiety, Reports depression, Reports difficulty concentrating, Reports hopelessness, Reports anhedonia and Reports suicidal ideation Mental Status Exam Mental Status Exam Patient Appearance: Fatigued Patient Orientation: Person, Place, Time and Situation Level of Consciousness: Awake, Drowsy, Sedated and Lethargic Patient Behavior: Cooperative, Passive, Asleep, Sedated, Avoidant, Fatigued, Isolative and Good Eye Contact Mood Description: Depressed Affect Description: Flat Patient Cognition Impaired: No Ability to Follow Directions: Fair Speech Pattern: Spontaneous Speech and Soft-Spoken Memory Description: Episodic Impaired Hallucinations: None Delusions: Not Present Perceptual Disturbances: Depersonalization and Derealization Thought Process: Distracted and Rumination Thought Content: positive for [place], positive for [place]um[place], positive for Persever[place], positive for Slowed Thinking and positive for Suicidal Ideation Depressive Symptoms: Increased Anxiety, Diff. Making Decisions, Sleeping More Than Usual, Loss of Int. in Activity, Hopelessness, Unhappiness, Increased Fatigue, Thoughts of /Suicide, Low Self Esteem, Loss of Energy and Difficulty Concentrating Judgement: Poor Diagnostics Vital Signs (24Hr): Vital Signs - 24 hr 03/25/21 21:40 03/25/21 21:46 03/26/21 19:44 Temperature 98.7 F Pulse Rate 88 88 107 H Blood Pressure 117/73 117/73 116/65 Pulse Oximetry 97 BMI result Body Mass Index 33.8 Labs Results: 03/16/21 07:51 03/16/21 07:51 Labs: Laboratory Results - last 48 hr 03/26/21 17:49 S. pyogenes GrpA TRESSA Positive A Imaging Radiology Impressions: ITS Impressions Chest X-Ray 03/15/21 19:02 IMPRESSION: Unremarkable examination. Medications Medications Current Medications Acetaminophen (Acetaminophen 325 Mg Tablet) 650 mg PO Q6H PRN PRN Reason: Headache/Pain Mild Scale (1-3) Last Admin: 03/25/21 17:50 Dose: 650 mg Documented by: Al Hydroxide/Mg Hydroxide (Magnesium Hydrox/Alum Hydrox 30 Ml Oral.Susp) 30 ml PO Q6H PRN PRN Reason: Heartburn/Nausea Last Admin: 03/18/21 19:27 Dose: 30 ml Documented by: Aripiprazole (Aripiprazole 20 Mg Tablet) 20 mg PO DAILY JEFFREY Last Admin: 03/26/21 08:38 Dose: 20 mg Documented by: Bacitracin (Bacitracin Oint 14 Gm Tube) 1 appl TOPICAL BID JEFFREY; Protocol Last Admin: 03/26/21 19:46 Dose: Not Given Documented by: Benzocaine (Throat Lozenge, Medicated Lozenge) 1 lozenge MUCOUS MEM Q2H PRN PRN Reason: Sore Throat Last Admin: 03/26/21 14:55 Dose: 1 lozenge Documented by: Benztropine Mesylate (Benztropine Mesylate 1 Mg Tablet) 1 mg PO BID JEFFREY Last Admin: 03/26/21 19:46 Dose: 1 mg Documented by: Calcium Carbonate (Calcium Carbonate 500 Mg Tablet) 500 mg PO TID PRN PRN Reason: heartburn Doxazosin Mesylate (Doxazosin Mesylate 2 Mg Tablet) 4 mg PO BEDTIME JEFFREY; Protocol Last Admin: 03/26/21 19:44 Dose: 4 mg Documented by: Hydroxyzine HCl (Hydroxyzine Hcl 50 Mg Tablet) 50 mg PO Q6H PRN PRN Reason: Anxiety Last Admin: 03/25/21 20:44 Dose: 50 mg Documented by: Ibuprofen (Ibuprofen 400 Mg Tablet) 400 mg PO Q8H PRN PRN Reason: mild-mod pain Last Admin: 03/22/21 18:05 Dose: 400 mg Documented by: Magnesium Hydroxide (Milk Of Magnesia 30 Ml Oral.Susp) 30 ml PO DAILY PRN PRN Reason: Constipation Multi-Ingred Medicated Throat [place] (Throat [place], Medicated 20 Ml Bottle) 1 spray MUCOUS MEM Q2H PRN PRN Reason: discomfort Omeprazole (Omeprazole 20 Mg Capsule.Dr) 20 mg PO DAILY@0630 [facility] Last Admin: 03/26/21 08:38 Dose: 20 mg Documented by: Ondansetron HCl (Ondansetron Odt 4 Mg Tab.Rapdis) 4 mg TRANSLINGU Q8H PRN PRN Reason: nausea Last Admin: 03/23/21 16:23 Dose: 4 mg Documented by: Quetiapine Fumarate (Quetiapine Fumarate 100 Mg Tablet) 100 mg PO TID [facility] Last Admin: 03/26/21 19:46 Dose: 100 mg Documented by: Quetiapine Fumarate (Quetiapine Fumarate 50 Mg Tablet) 50 mg PO Q6H PRN PRN Reason: agitation Risperidone (Risperidone 0.25 Mg Tablet) 0.25 mg PO Q4H PRN PRN Reason: assistance with grounding Last Admin: 03/24/21 18:59 Dose: 0.25 mg Documented by: Trazodone HCl (Trazodone Hcl 100 Mg Tablet) 100 mg PO BEDTIME PRN PRN Reason: Insomnia Last Admin: 03/23/21 20:31 Dose: 100 mg Documented by: Venlafaxine HCl (Venlafaxine Hcl Er 37.5 Mg Cap.Er.24h) 187.5 mg PO DAILY [facility] Last Admin: 03/26/21 08:38 Dose: 187.5 mg Documented by: Zinc Acetate/Diphenhydramine (Diphenhydramine Hcl 2 % Cream 28 Gm Tube) 1 appl TOPICAL BID PRN PRN Reason: Itching Allergies Allergies Allergy/AdvReac Type Severity Reaction Status Date / Time coconut Allergy Severe Anaphylaxis Verified 03/14/21 22:10 nut - unspecified [NUTS] Allergy Severe HIVES, Verified 03/14/21 23:05 DIFF BREATHING, THROAT SWELLS peanut Allergy Severe Anaphylaxis Verified 03/14/21 22:10 Assessment & Plan Assessment & Plan (1) TREY (generalized anxiety disorder): Status: Acute Code(s): F41.1 - Generalized anxiety disorder (2) MDD (major depressive disorder), recurrent severe, without psychosis: Status: Acute Code(s): F33.2 - Major depressive disorder, recurrent severe without psychotic features Assessment and Plan: 35 y.o. Who carries a dx of PTSD, MDD recurrent, TREY. She is a lateral transfer from [facility], admitted on 02/18/21 for depression, anxiety, and SI. Recent perceptual disturbances of 's image and voice, he from suicide 2 yr ago. Plan: Pt is here for ECT. Med reconciliation done. Pt reports she is supposed to be on doxazosin 4 mg at bedtime and 2 mg QD (this was her dose of prazosin and it was switched to doxazosin at [facility], however discharge listed doxazosin as 1 mg QHS). Will increase doxazosin to 2 mg QHS and defer to primary team for adjustments. Pt reports she is still on trileptal 300 mg BID but this was not on [facility] discharge. Pt also reports benefit on ativan 0.5 mg BID PRN for agitation, anxiety- will re-start, as this helps when pt has urges to self harm in context of anxiety and agitation. Monitor response to medications. Monitor for safety in the milieu. Discharge on stabilization. Patient seen. Chart reviewed. Discussed with team. Obtain collateral contact info?as needed 03/15/21: Increase Doxazosin to 4 mg HS. Monitor for SE. Pt asks to have 2 mg return to daytime dosing-will titrate gradually. Risperdal 0.25 mg bid prn grounding assist to manage SIBS. Medical clearance for ECT ordered-hospitalist, Chest xray, EKG, CMP, CBC Pt will move closer to nursing station as she has been struggling with her safety and working on a plan of care with team to remain safe while keeping as much of her own control as possible. Weekend Coverage: 03/16- Pt continues to endorse urges for self harm and had incident of superficial cutting this morning, told medical staff services coordinator after the event and had it dressed. Reminded pt that she has PRN riserpdal ordered and pt is willing to utilize. Will monitor for benefit. 03/17-Pt discloses urges and plan to cut herself with a staple, had this in possession and was able to give this up. Also disclosed command AH. Reports positive benefit on PRN risperdal, will increase to Q4H PRN. Encouraged coping skills. NPO orders to start at midnight for ECT tomorrow. 03/18/21 ECT completed. No medication changes today. 03/19/21 Continue current regime as pt reports cheeking/saving medications since admission Tolerated ECT 03/18/21 Continue plan of care. 03/20/21 Continue current plan of care Mindfulness exercises 03/21-non ECT day. 03/21/21 Increase Venlafaxine ER to 187.5 mg daily Encourage use of Risperdal to assist with grounding Initiated use of DBT skills with targeted handouts focused on mgt of suffering. 03/22/21 Post ECT-resting/sleeping after treatment Continue current regime. 03/23/21: Ct ECT and 1:1. Tolerating ECT well. 03/24/21: Ct ECT/1:1. 03/25/21: ECT Today. Pt resting/napping most of the day. Team report no active self-harm throughout the weekend, just thoughts however pt reports no improvement. Continue current plan. 03/26/21: Pt reports some improvement with ongoing thoughts of self-harm and SIBS for relief of sx. I spent 25 minutes with the patient and/or on the patient floor today, greater than?50% of which was spent counseling/coordinating care. Patient educated on: therapeutic strategies Informed Consent: further education needed Reason for contiued inpatient stay Substantial Risk for: harm to self, inability to function and rapid decompensation
[2021-03-27] VITALS (12 sets, daily range): BP systolic 115–167; BP diastolic 71–107; PULSE 76–104; RESP 16–20; TEMP 35.9–36.8; O2SAT 95–99
--- NOTE | 2021-03-27 06:51 | HO.ANESPROP2 ---
[facility] Active Problems Active Problems: All Active Problems (Updated 03/16/21 @ 16:28 by KAYDEN Jeter) MDD (major depressive disorder), recurrent severe, without psychosis (Acute) TREY (generalized anxiety disorder) (Acute) Past Medical History Medical History TREY (generalized anxiety disorder) GERD (gastroesophageal reflux disease) HTN (hypertension) MDD (major depressive disorder), recurrent severe, without psychosis MARIA TERESA (obstructive sleep apnea) Post traumatic stress disorder (PTSD) Functional capacity: independent ambulation Family History Family History Mother Heart disease Family history of problems with anesthesia: No Surgical History Surgical History H/O gastric bypass Hx of cholecystectomy History of Problems with Anesthesia: No Social History Social History Household Members: Other Household Members Other:: 17 yo daughter Housing: Apartment Do you presently have visiting nurse or other home services: No Alcohol intake: current Alcohol intake frequency: holidays/special occasions only Patient Tobacco Use Status: Never used Tobacco Use of substances other than those prescribed or required for medical reasons: No Currently Displaying Signs/Symptoms of Drug Intoxication Withdrawal: No Have you been hit, kicked, punched, or otherwise hurt by someone within the past year? If so, by whom?: No Do you feel safe in your current relationship?: Yes Is there a partner from a previous relationship who is making you feel unsafe now?: No Are you made to feel afraid or neglected: No Are you DNR?: No Advance Directives: No Advance Directives Information Provided: No Advance Directives on File: No Do you have thoughts of harming others: None Do you have a plan to hurt others: No Plan Recently lost weight without trying: No Eating poorly because of decreased appetite: No Nutrition Risks: No Nutritional Risk Patient : No : No Poor oral hygiene: No service: No Sexual orientation: Did not discuss Meds Allergies Allergy/AdvReac Type Severity Reaction Status Date / Time coconut Allergy Severe Anaphylaxis Verified 03/14/21 22:10 nut - unspecified [NUTS] Allergy Severe HIVES, Verified 03/14/21 23:05 DIFF BREATHING, THROAT SWELLS peanut Allergy Severe Anaphylaxis Verified 03/14/21 22:10 Active Medications: Current Medications Acetaminophen (Acetaminophen 325 Mg Tablet) 650 mg PO Q6H PRN PRN Reason: Headache/Pain Mild Scale (1-3) Last Admin: 03/25/21 17:50 Dose: 650 mg Documented by: Al Hydroxide/Mg Hydroxide (Magnesium Hydrox/Alum Hydrox 30 Ml Oral.Susp) 30 ml PO Q6H PRN PRN Reason: Heartburn/Nausea Last Admin: 03/18/21 19:27 Dose: 30 ml Documented by: Aripiprazole (Aripiprazole 20 Mg Tablet) 20 mg PO DAILY JEFFREY Last Admin: 03/26/21 08:38 Dose: 20 mg Documented by: Bacitracin (Bacitracin Oint 14 Gm Tube) 1 appl TOPICAL BID [facility]; Protocol Last Admin: 03/26/21 19:46 Dose: Not Given Documented by: Benzocaine (Throat Lozenge, Medicated Lozenge) 1 lozenge MUCOUS MEM Q2H PRN PRN Reason: Sore Throat Last Admin: 03/26/21 14:55 Dose: 1 lozenge Documented by: Benztropine Mesylate (Benztropine Mesylate 1 Mg Tablet) 1 mg PO BID JEFFREY Last Admin: 03/26/21 19:46 Dose: 1 mg Documented by: Calcium Carbonate (Calcium Carbonate 500 Mg Tablet) 500 mg PO TID PRN PRN Reason: heartburn Doxazosin Mesylate (Doxazosin Mesylate 2 Mg Tablet) 4 mg PO BEDTIME [facility]; Protocol Last Admin: 03/26/21 19:44 Dose: 4 mg Documented by: Hydroxyzine HCl (Hydroxyzine Hcl 50 Mg Tablet) 50 mg PO Q6H PRN PRN Reason: Anxiety Last Admin: 03/25/21 20:44 Dose: 50 mg Documented by: Ibuprofen (Ibuprofen 400 Mg Tablet) 400 mg PO Q8H PRN PRN Reason: mild-mod pain Last Admin: 03/22/21 18:05 Dose: 400 mg Documented by: Magnesium Hydroxide (Milk Of Magnesia 30 Ml Oral.Susp) 30 ml PO DAILY PRN PRN Reason: Constipation Multi-Ingred Medicated Throat [place] (Throat [place], Medicated 20 Ml Bottle) 1 spray MUCOUS MEM Q2H PRN PRN Reason: discomfort Omeprazole (Omeprazole 20 Mg Capsule.Dr) 20 mg PO DAILY@0630 [facility] Last Admin: 03/26/21 08:38 Dose: 20 mg Documented by: Ondansetron HCl (Ondansetron Odt 4 Mg Tab.Rapdis) 4 mg TRANSLINGU Q8H PRN PRN Reason: nausea Last Admin: 03/23/21 16:23 Dose: 4 mg Documented by: Quetiapine Fumarate (Quetiapine Fumarate 100 Mg Tablet) 100 mg PO TID [facility] Last Admin: 03/26/21 19:46 Dose: 100 mg Documented by: Quetiapine Fumarate (Quetiapine Fumarate 50 Mg Tablet) 50 mg PO Q6H PRN PRN Reason: agitation Risperidone (Risperidone 0.25 Mg Tablet) 0.25 mg PO Q4H PRN PRN Reason: assistance with grounding Last Admin: 03/24/21 18:59 Dose: 0.25 mg Documented by: Trazodone HCl (Trazodone Hcl 100 Mg Tablet) 100 mg PO BEDTIME PRN PRN Reason: Insomnia Last Admin: 03/23/21 20:31 Dose: 100 mg Documented by: Venlafaxine HCl (Venlafaxine Hcl Er 37.5 Mg Cap.Er.24h) 187.5 mg PO DAILY [facility] Last Admin: 03/26/21 08:38 Dose: 187.5 mg Documented by: Zinc Acetate/Diphenhydramine (Diphenhydramine Hcl 2 % Cream 28 Gm Tube) 1 appl TOPICAL BID PRN PRN Reason: Itching Home Medications Medication Instructions Recorded Confirmed Last Taken Type trazodone 100 mg PO BEDTIME 03/15/21 03/15/21 Unknown History Exam Exam Date and Time: March 27, 2021 0651 Height,Weight and Vital Signs: Height 5 ft 2 in Weight 83.915 kg Last Vital Signs Temp 96.7 F L 03/27/21 06:12 Pulse 89 03/27/21 06:12 Resp 18 03/27/21 06:12 BP 131/81 03/27/21 06:12 Pulse Ox 98 03/27/21 06:12 Pertinent Lab Results Pertinent Lab Results: Laboratory Tests 03/15/21 03/15/21 03/15/21 07:48 07:48 07:48 WBC RBC Hgb Hct MCV MCH MCHC RDW Plt Count MPV Immature Gran % (Auto) Neut % (Auto) Lymph % (Auto) Elliott % (Auto) Eos % (Auto) Baso % (Auto) Lymph # (Auto) Elliott # (Auto) Eos # (Auto) Baso # (Auto) Abs Immat Gran (auto) Absolute Neuts (auto) Absolute Nucleated RBC Nucleated RBC % (auto) Sodium Potassium Chloride Carbon Dioxide Anion Gap BUN Creatinine Estim Creat Clear Calc Estimated GFR Random Glucose Estimat Average Glucose 82 Hemoglobin A1c % 4.5 Calcium Magnesium 2.0 Total Bilirubin 0.5 Direct Bilirubin 0.2 AST 27 ALT 28 Alkaline Phosphatase 81 Total Protein 6.4 L Albumin 3.9 Triglycerides 186 Cholesterol 196 LDL Cholesterol, Calc 95 HDL Cholesterol 64 Vitamin B12 342 Folate 12.3 TSH 1.14 Free T4 0.66 L S. pyogenes GrpA TRESSA 03/16/21 03/16/21 03/26/21 07:51 07:51 17:49 WBC 6.9 RBC 4.87 Hgb 14.8 Hct 45.8 MCV 94.0 MCH 30.4 MCHC 32.3 RDW 13.2 Plt Count 297 MPV 10.6 Immature Gran % (Auto) 0.1 Neut % (Auto) 49.0 Lymph % (Auto) 37.8 Elliott % (Auto) 8.9 Eos % (Auto) 3.5 Baso % (Auto) 0.7 Lymph # (Auto) 2.6 Elliott # (Auto) 0.6 Eos # (Auto) 0.2 Baso # (Auto) 0.1 Abs Immat Gran (auto) 0.01 Absolute Neuts (auto) 3.4 Absolute Nucleated RBC 0.000 Nucleated RBC % (auto) 0.0 Sodium 144 Potassium 4.0 Chloride 106 Carbon Dioxide 29 Anion Gap 13 BUN 7 L Creatinine 0.82 Estim Creat Clear Calc TNP Estimated GFR > 60 Random Glucose 85 Estimat Average Glucose Hemoglobin A1c % Calcium 9.7 Magnesium Total Bilirubin 0.4 Direct Bilirubin AST 25 ALT 25 Alkaline Phosphatase 79 Total Protein 6.7 Albumin 4.0 Triglycerides Cholesterol LDL Cholesterol, Calc HDL Cholesterol Vitamin B12 Folate TSH Free T4 S. pyogenes GrpA TRESSA Positive A Airway Mallampati Class: II TM Dist: >3cm Neck ROM: Full Heart: rrr Lungs: cta Assessment and Plan Assessment Anesthesia Assessment: Anesthesia Plan Discussed and Chart Reviewed Final Anesthetic Review Family History of Problems with Anesthesia: No History of Problems with Anesthesia: No NPO: Yes ASA Class: III Final Preanesthetic Review: No Changes in Pt Med Stat, Meds/Allgs Chart Reviewed and Consent Obtained/Reviewed Patient Risk: Intermediate Procedure Risk: Intermediate Anesthetic Plan Anesthetic Plan: GA Disposition: Standard PACU
--- NOTE | 2021-03-27 07:26 | MHC.SHP ---
Pre-Procedural Eval Section A Date of Service: 03/27/21 The patient is an INPATIENT: Yes Changes since office visit: Yes Changes in Medication and Yes Patient answered all questions; No Cold of Flu in the past 2 weeks and No New Medical Problems The History & Physical has been completed within 30 days and I have reviewed it.: Yes Section B Chief Complaint: Major Depressive Disorder Allergies: Allergies Allergy/AdvReac Type Severity Reaction Status Date / Time coconut Allergy Severe Anaphylaxis Verified 03/14/21 22:10 nut - unspecified [NUTS] Allergy Severe HIVES, Verified 03/14/21 23:05 DIFF BREATHING, THROAT SWELLS peanut Allergy Severe Anaphylaxis Verified 03/14/21 22:10 Plan I have reviewed the history and physical and performed a pertinent physical examination on my patient. No changes have occurred unless specified.
--- NOTE | 2021-03-27 07:45 | HO.ECTPROC ---
ECT Procedure Note Diagnosis/Treatment Date of Service: 03/27/21 Diagnosis: Major Depressive Disorder and Other (ptsd) Previous ECT Date: 03/27/21 Current Treatment Number: 5 Treatment: Series Interval Clinical Notes: pt depressed intermittant passive si ECT Settings Device: THYMATRON DGx Electrode Placement: Bitemporal Program/Pulse Width: 0.50 Energy Percent: 100 Seizure Duration By EEG (in seconds): 22 Medications Administration General Anesthetic: Etomidate (12) Muscle Relaxant: Succinylcholine Ancillary Medications Analgesics: Torodol - Pre ECT Anti-emetics: Zofran - Pre ECT Miscillaneous Medications: Propofol Airway Management Airway Management: Bag Mask Ventilation Treatment Recommendations No Changes Recommended: No change Notes: was noted pos strep afebrile o2 sat good Pt Tolerated Procedure w/o Issue: Yes
[2021-03-27] MEDS: Amoxicillin/Potassium Clav 500 MG TABLET PO ×2 (10:09→21:21)
[2021-03-27] MEDS: Omeprazole 20 MG CAPSULE.DR PO (10:09)
[2021-03-27] MEDS: ARIPiprazole 20 MG TABLET PO (10:09)
[2021-03-27] MEDS: QUEtiapine Fumarate 100 MG TABLET PO ×3 (10:09→21:21)
[2021-03-27] MEDS: Venlafaxine HCl ER 37.5 MG CAP.ER.24H 187.5 MG PO (10:09)
[2021-03-27] MEDS: Benztropine Mesylate 1 MG TABLET PO ×2 (10:09→21:21)
[2021-03-27] MEDS: Bacitracin Oint 14 GM TUBE 1 APPL TOPICAL (10:13)
--- NOTE | 2021-03-27 18:35 | P.PNPSI_ITS ---
Subjective Subjective Date of Service: 03/28/21 Reason For Visit: Major Depressive Disorder Subjective Notes: Conditional Voluntary Healthcare Proxy: No Guardianship: No Medical Problems Affecting Mental Status: No Interim History: Pt continues on one to one. Completed ECT today. Throat culture has returned positive. Dr. Sen initiated Augmentin. Pt able to attend a few groups with some interest, appears brighter, passive self-harm thoughts at times she reports, denies active SI. Medication Compliance: Yes Side effects from medications: No Attending Groups: Yes Review of Systems Acute medical concerns: No Positive strep Medical Review of Systems: unchanged Review of Systems Reports sore throat Psychiatric: Reports anxiety, Reports depression, Reports difficulty concentrating, Reports hopelessness, Reports anhedonia and Reports suicidal ideation Mental Status Exam Mental Status Exam Patient Appearance: Fatigued Patient Orientation: Person, Place, Time and Situation Level of Consciousness: Awake, Drowsy, Sedated and Lethargic Patient Behavior: Cooperative, Passive, Asleep, Sedated, Avoidant, Fatigued, Isolative and Good Eye Contact Mood Description: Depressed Affect Description: Flat Patient Cognition Impaired: No Ability to Follow Directions: Fair Speech Pattern: Spontaneous Speech and Soft-Spoken Memory Description: Episodic Impaired Hallucinations: None Delusions: Not Present Perceptual Disturbances: Depersonalization and Derealization Thought Process: Distracted and Rumination Thought Content: positive for [place], positive for Circumstantial, positive for Perseveration, positive for Slowed Thinking and positive for Suicidal Ideation Depressive Symptoms: Increased Anxiety, Diff. Making Decisions, Sleeping More Than Usual, Loss of Int. in Activity, Hopelessness, Unhappiness, Increased Fatigue, Thoughts of /Suicide, Low Self Esteem, Loss of Energy and Difficulty Concentrating Judgement: Poor Diagnostics Vital Signs (24Hr): Vital Signs - 24 hr 03/26/21 19:44 03/27/21 06:00 03/27/21 06:12 Temperature 96.7 F L 96.7 F L Pulse Rate 107 H 89 89 Respiratory Rate 18 18 Blood Pressure 116/65 131/81 131/81 Pulse Oximetry 98 98 03/27/21 06:53 03/27/21 07:48 03/27/21 07:53 Temperature 97.3 F 97.1 F Pulse Rate 94 76 88 Respiratory Rate 18 16 19 Blood Pressure 126/81 167/107 H 125/73 Pulse Oximetry 98 99 96 03/27/21 07:58 03/27/21 08:03 03/27/21 08:17 Temperature Pulse Rate 97 104 H 101 H Respiratory Rate 20 16 16 Blood Pressure 128/80 128/83 124/76 Pulse Oximetry 95 96 96 03/27/21 08:27 03/27/21 09:02 03/27/21 17:04 Temperature 98.2 F 97.7 F 97.9 F Pulse Rate 101 H 96 100 Respiratory Rate 16 16 Blood Pressure 124/76 120/76 115/73 Pulse Oximetry 96 97 98 BMI result Body Mass Index 33.8 Labs Results: 03/16/21 07:51 03/16/21 07:51 Labs: Laboratory Results - last 48 hr 03/26/21 17:49 S. pyogenes GrpA TRESSA Positive A Imaging Radiology Impressions: ITS Impressions Chest X-Ray 03/15/21 19:02 IMPRESSION: Unremarkable examination. Medications Medications Current Medications Acetaminophen (Acetaminophen 325 Mg Tablet) 650 mg PO Q6H PRN PRN Reason: Headache/Pain Mild Scale (1-3) Last Admin: 03/25/21 17:50 Dose: 650 mg Documented by: Al Hydroxide/Mg Hydroxide (Magnesium Hydrox/Alum Hydrox 30 Ml Oral.Susp) 30 ml PO Q6H PRN PRN Reason: Heartburn/Nausea Last Admin: 03/18/21 19:27 Dose: 30 ml Documented by: Amoxicillin/Clavulanate Potassium (Amoxicillin/Potassium Clav 500 Mg Tablet) 500 mg PO Q12H [facility] Last Admin: 03/27/21 10:09 Dose: 500 mg Documented by: Aripiprazole (Aripiprazole 20 Mg Tablet) 20 mg PO DAILY [facility] Last Admin: 03/27/21 10:09 Dose: 20 mg Documented by: Bacitracin (Bacitracin Oint 14 Gm Tube) 1 appl TOPICAL BID [facility]; Protocol Last Admin: 03/27/21 10:13 Dose: 1 appl Documented by: Benzocaine (Throat Lozenge, Medicated Lozenge) 1 lozenge MUCOUS MEM Q2H PRN PRN Reason: Sore Throat Last Admin: 03/26/21 14:55 Dose: 1 lozenge Documented by: Benztropine Mesylate (Benztropine Mesylate 1 Mg Tablet) 1 mg PO BID [facility] Last Admin: 03/27/21 10:09 Dose: 1 mg Documented by: Calcium Carbonate (Calcium Carbonate 500 Mg Tablet) 500 mg PO TID PRN PRN Reason: heartburn Doxazosin Mesylate (Doxazosin Mesylate 2 Mg Tablet) 4 mg PO BEDTIME [facility]; Protocol Last Admin: 03/26/21 19:44 Dose: 4 mg Documented by: Hydroxyzine HCl (Hydroxyzine Hcl 50 Mg Tablet) 50 mg PO Q6H PRN PRN Reason: Anxiety Last Admin: 03/25/21 20:44 Dose: 50 mg Documented by: Lactated Ringer's (Lr) 1,000 mls @ 50 mls/hr IVCONT .Q20H [facility] Last Admin: 03/27/21 10:21 Dose: Not Given Documented by: Ibuprofen (Ibuprofen 400 Mg Tablet) 400 mg PO Q8H PRN PRN Reason: mild-mod pain Last Admin: 03/22/21 18:05 Dose: 400 mg Documented by: Magnesium Hydroxide (Milk Of Magnesia 30 Ml Oral.Susp) 30 ml PO DAILY PRN PRN Reason: Constipation Multi-Ingred Medicated Throat [place] (Throat [place], Medicated 20 Ml Bottle) 1 spray MUCOUS MEM Q2H PRN PRN Reason: discomfort Omeprazole (Omeprazole 20 Mg Capsule.Dr) 20 mg PO DAILY@0630 [facility] Last Admin: 03/27/21 10:09 Dose: 20 mg Documented by: Ondansetron HCl (Ondansetron Odt 4 Mg Tab.Rapdis) 4 mg TRANSLINGU Q8H PRN PRN Reason: nausea Last Admin: 03/23/21 16:23 Dose: 4 mg Documented by: Quetiapine Fumarate (Quetiapine Fumarate 100 Mg Tablet) 100 mg PO TID [facility] Last Admin: 03/27/21 15:56 Dose: 100 mg Documented by: Quetiapine Fumarate (Quetiapine Fumarate 50 Mg Tablet) 50 mg PO Q6H PRN PRN Reason: agitation Risperidone (Risperidone 0.25 Mg Tablet) 0.25 mg PO Q4H PRN PRN Reason: assistance with grounding Last Admin: 03/24/21 18:59 Dose: 0.25 mg Documented by: Trazodone HCl (Trazodone Hcl 100 Mg Tablet) 100 mg PO BEDTIME PRN PRN Reason: Insomnia Last Admin: 03/23/21 20:31 Dose: 100 mg Documented by: Venlafaxine HCl (Venlafaxine Hcl Er 37.5 Mg Cap.Er.24h) 187.5 mg PO DAILY JEFFREY Last Admin: 03/27/21 10:09 Dose: 187.5 mg Documented by: Zinc Acetate/Diphenhydramine (Diphenhydramine Hcl 2 % Cream 28 Gm Tube) 1 appl TOPICAL BID PRN PRN Reason: Itching Allergies Allergies Allergy/AdvReac Type Severity Reaction Status Date / Time coconut Allergy Severe Anaphylaxis Verified 03/14/21 22:10 nut - unspecified [NUTS] Allergy Severe HIVES, Verified 03/14/21 23:05 DIFF BREATHING, THROAT SWELLS peanut Allergy Severe Anaphylaxis Verified 03/14/21 22:10 Assessment & Plan Assessment & Plan (1) TREY (generalized anxiety disorder): Status: Acute Code(s): F41.1 - Generalized anxiety disorder (2) MDD (major depressive disorder), recurrent severe, without psychosis: Status: Acute Code(s): F33.2 - Major depressive disorder, recurrent severe without psychotic features Assessment and Plan: 35 y.o. Who carries a dx of PTSD, MDD recurrent, TREY. She is a lateral transfer from [facility], admitted on 02/18/21 for depression, anxiety, and SI. Recent perceptual disturbances of 's image and voice, he from suicide 2 yr ago. Plan: Pt is here for ECT. Med reconciliation done. Pt reports she is supposed to be on doxazosin 4 mg at bedtime and 2 mg QD (this was her dose of prazosin and it was switched to doxazosin at [facility], however discharge listed doxazosin as 1 mg QHS). Will increase doxazosin to 2 mg QHS and defer to primary team for adjustments. Pt reports she is still on trileptal 300 mg BID but this was not on [facility] discharge. Pt also reports benefit on ativan 0.5 mg BID PRN for agitation, anxiety- will re-start, as this helps when pt has urges to self harm in context of anxiety and agitation. Monitor response to medications. Monitor for safety in the milieu. Discharge on stabilization. Patient seen. Chart reviewed. Discussed with team. Obtain collateral contact info?as needed 03/15/21: Increase Doxazosin to 4 mg HS. Monitor for SE. Pt asks to have 2 mg return to daytime dosing-will titrate gradually. Risperdal 0.25 mg bid prn grounding assist to manage SIBS. Medical clearance for ECT ordered-hospitalist, Chest xray, EKG, CMP, CBC Pt will move closer to nursing station as she has been struggling with her safety and working on a plan of care with team to remain safe while keeping as much of her own control as possible. Weekend Coverage: 03/16- Pt continues to endorse urges for self harm and had incident of superficial cutting this morning, told operations staff specialist security after the event and had it dressed. Reminded pt that she has PRN riserpdal ordered and pt is willing to utilize. Will monitor for benefit. 03/17-Pt discloses urges and plan to cut herself with a staple, had this in possession and was able to give this up. Also disclosed command AH. Reports positive benefit on PRN risperdal, will increase to Q4H PRN. Encouraged coping skills. NPO orders to start at midnight for ECT tomorrow. 03/18/21 ECT completed. No medication changes today. 03/19/21 Continue current regime as pt reports cheeking/saving medications since admission Tolerated ECT 03/18/21 Continue plan of care. 03/20/21 Continue current plan of care Mindfulness exercises 03/21-non ECT day. 03/21/21 Increase Venlafaxine ER to 187.5 mg daily Encourage use of Risperdal to assist with grounding Initiated use of DBT skills with targeted handouts focused on mgt of suffering. 03/22/21 Post ECT-resting/sleeping after treatment Continue current regime. 03/23/21: Ct ECT and 1:1. Tolerating ECT well. 03/24/21: Ct ECT/1:1. 03/25/21: ECT Today. Pt resting/napping most of the day. Team report no active self-harm throughout the weekend, just thoughts however pt reports no improvement. Continue current plan. 03/26/21: Pt reports some improvement with ongoing thoughts of self-harm and SIBS for relief of sx. 03/27/21: Positive strep culture-Augmentin initiated by Dr. Sen during ECT Pt appears brighter-did attend group. Continue current plan of care. I spent 20 minutes with the patient and/or on the patient floor today, greater than?50% of which was spent counseling/coordinating care. Patient educated on: therapeutic strategies Informed Consent: understands Reason for contiued inpatient stay Substantial Risk for: harm to self, inability to function and rapid decompensation
[2021-03-27 19:55] LABS: COVID-19 Test Positive (Negative); IDNOW Serial# 9DD0AD1C
[2021-03-27] MEDS: Doxazosin Mesylate 2 MG TABLET 4 MG PO (21:21)
--- NOTE | 2021-03-27 22:22 | P.EN_ITS ---
Event Note Date of Service: 03/27/21 Event Note: was asked to see pt as she tested positive for covid as well as st rep. pt is currently in isolation on M5 U. She is complaining of sore throat with no cough, no fever or chills. she denies any SOB, no chest pain, she has been at [facility] for approx 2 wks. She has no abd pain, N/v, no diarrhea or constipation. Pt HDS pt was started on augmentin by psychiatrist for strep- which i agree with in regards to her COVID infection, pt currently asymtomatic- recommend co ntinuing isolation and monitoring resp status
[2021-03-28] MEDS: Benztropine Mesylate 1 MG TABLET PO ×2 (08:04→21:45)
[2021-03-28] MEDS: Omeprazole 20 MG CAPSULE.DR PO (08:04)
[2021-03-28] MEDS: Amoxicillin/Potassium Clav 500 MG TABLET PO ×2 (08:04→21:45)
[2021-03-28] MEDS: QUEtiapine Fumarate 100 MG TABLET PO ×3 (08:04→21:45)
[2021-03-28] MEDS: Venlafaxine HCl ER 37.5 MG CAP.ER.24H 187.5 MG PO (08:04)
[2021-03-28] MEDS: ARIPiprazole 20 MG TABLET PO (08:04)
[2021-03-28 18:00] VITALS: BP 120/75; PULSE 89; RESP 16; TEMP 36.7; O2SAT 99
--- NOTE | 2021-03-28 20:09 | HO.PSYCHPN ---
Subjective Subjective Date of Service: 03/28/21 Reason For Visit: Major Depressive Disorder Subjective Notes: Conditional Voluntary Healthcare Proxy: No Guardianship: No Medical Problems Affecting Mental Status: No Interim History: Pt now positive for COVID. She is in isolation on the unit. ECT is postponed ~10 days. Met with pt who reports she is fully vaccinated since Jan 2021 and is not feeling ill, just with sore throat (strep+ on 03/27). Reports depressive symptoms are somewhat relieved, however still with SI, SIBS. Unsure if she is safe enough to discharge home and return for OP ECT as she will be alone in the home. Reports she did attend group on 03/27 and found it to be helpful. Medication Compliance: Yes Side effects from medications: No Attending Groups: No Review of Systems Acute medical concerns: Yes COVID positive 03/27/21. Medical Review of Systems: unchanged Review of Systems: Pt reports sore throat Encouraged to use chloraseptic for added relief of discomfort. Review of Systems Reports sore throat Psychiatric: Reports anxiety, Reports depression, Reports difficulty concentrating, Reports hopelessness, Reports anhedonia and Reports suicidal ideation Mental Status Exam Mental Status Exam Patient Appearance: Fatigued Patient Orientation: Person, Place, Time and Situation Level of Consciousness: Awake, Drowsy, Sedated and Lethargic Patient Behavior: Cooperative, Passive, Asleep, Sedated, Avoidant, Fatigued, Isolative and Good Eye Contact Mood Description: Depressed Affect Description: Flat Patient Cognition Impaired: No Ability to Follow Directions: Fair Speech Pattern: Spontaneous Speech and Soft-Spoken Memory Description: Episodic Impaired Hallucinations: None Delusions: Not Present Perceptual Disturbances: Depersonalization and Derealization Thought Process: Distracted and Rumination Thought Content: positive for [place], positive for Circumstantial, positive for Perseveration, positive for Slowed Thinking and positive for Suicidal Ideation Depressive Symptoms: Increased Anxiety, Diff. Making Decisions, Sleeping More Than Usual, Loss of Int. in Activity, Hopelessness, Unhappiness, Increased Fatigue, Thoughts of /Suicide, Low Self Esteem, Loss of Energy and Difficulty Concentrating Judgement: Poor Diagnostics Vital Signs (24Hr): Vital Signs - 24 hr 03/27/21 21:21 Pulse Rate 92 Blood Pressure 120/71 BMI result Body Mass Index 33.8 Labs Results: 03/16/21 07:51 03/16/21 07:51 Labs: Laboratory Results - last 48 hr 03/27/21 18:58 COVID-19 (JEFF) Positive A COVID-19 Clin Com See Note Imaging Radiology Impressions: ITS Impressions Chest X-Ray 03/15/21 19:02 IMPRESSION: Unremarkable examination. Medications Medications Current Medications Acetaminophen (Acetaminophen 325 Mg Tablet) 650 mg PO Q6H PRN PRN Reason: Headache/Pain Mild Scale (1-3) Last Admin: 03/25/21 17:50 Dose: 650 mg Documented by: Al Hydroxide/Mg Hydroxide (Magnesium Hydrox/Alum Hydrox 30 Ml Oral.Susp) 30 ml PO Q6H PRN PRN Reason: Heartburn/Nausea Last Admin: 03/18/21 19:27 Dose: 30 ml Documented by: Amoxicillin/Clavulanate Potassium (Amoxicillin/Potassium Clav 500 Mg Tablet) 500 mg PO Q12H JEFFREY Last Admin: 03/28/21 08:04 Dose: 500 mg Documented by: Aripiprazole (Aripiprazole 20 Mg Tablet) 20 mg PO DAILY JEFFREY Last Admin: 03/28/21 08:04 Dose: 20 mg Documented by: Bacitracin (Bacitracin Oint 14 Gm Tube) 1 appl TOPICAL BID JEFFREY; Protocol Last Admin: 03/28/21 08:18 Dose: Not Given Documented by: Benzocaine (Throat Lozenge, Medicated Lozenge) 1 lozenge MUCOUS MEM Q2H PRN PRN Reason: Sore Throat Last Admin: 03/26/21 14:55 Dose: 1 lozenge Documented by: Benztropine Mesylate (Benztropine Mesylate 1 Mg Tablet) 1 mg PO BID JEFFREY Last Admin: 03/28/21 08:04 Dose: 1 mg Documented by: Calcium Carbonate (Calcium Carbonate 500 Mg Tablet) 500 mg PO TID PRN PRN Reason: heartburn Doxazosin Mesylate (Doxazosin Mesylate 2 Mg Tablet) 4 mg PO BEDTIME JEFFREY; Protocol Last Admin: 03/27/21 21:21 Dose: 4 mg Documented by: Hydroxyzine HCl (Hydroxyzine Hcl 50 Mg Tablet) 50 mg PO Q6H PRN PRN Reason: Anxiety Last Admin: 03/25/21 20:44 Dose: 50 mg Documented by: Lactated Ringer's (Lr) 1,000 mls @ 50 mls/hr IVCONT .Q20H JEFFREY Last Admin: 03/28/21 03:11 Dose: Not Given Documented by: Ibuprofen (Ibuprofen 400 Mg Tablet) 400 mg PO Q8H PRN PRN Reason: mild-mod pain Last Admin: 03/22/21 18:05 Dose: 400 mg Documented by: Magnesium Hydroxide (Milk Of Magnesia 30 Ml Oral.Susp) 30 ml PO DAILY PRN PRN Reason: Constipation Multi-Ingred Medicated Throat [place] (Throat [place], Medicated 20 Ml Bottle) 1 spray MUCOUS MEM Q2H PRN PRN Reason: discomfort Omeprazole (Omeprazole 20 Mg Capsule.Dr) 20 mg PO DAILY@0630 [facility] Last Admin: 03/28/21 08:04 Dose: 20 mg Documented by: Ondansetron HCl (Ondansetron Odt 4 Mg Tab.Rapdis) 4 mg TRANSLINGU Q8H PRN PRN Reason: nausea Last Admin: 03/23/21 16:23 Dose: 4 mg Documented by: Quetiapine Fumarate (Quetiapine Fumarate 100 Mg Tablet) 100 mg PO TID [facility] Last Admin: 03/28/21 14:23 Dose: 100 mg Documented by: Quetiapine Fumarate (Quetiapine Fumarate 50 Mg Tablet) 50 mg PO Q6H PRN PRN Reason: agitation Risperidone (Risperidone 0.25 Mg Tablet) 0.25 mg PO Q4H PRN PRN Reason: assistance with grounding Last Admin: 03/24/21 18:59 Dose: 0.25 mg Documented by: Trazodone HCl (Trazodone Hcl 100 Mg Tablet) 100 mg PO BEDTIME PRN PRN Reason: Insomnia Last Admin: 03/23/21 20:31 Dose: 100 mg Documented by: Venlafaxine HCl (Venlafaxine Hcl Er 37.5 Mg Cap.Er.24h) 187.5 mg PO DAILY [facility] Last Admin: 03/28/21 08:04 Dose: 187.5 mg Documented by: Zinc Acetate/Diphenhydramine (Diphenhydramine Hcl 2 % Cream 28 Gm Tube) 1 appl TOPICAL BID PRN PRN Reason: Itching Allergies Allergies Allergy/AdvReac Type Severity Reaction Status Date / Time coconut Allergy Severe Anaphylaxis Verified 03/14/21 22:10 nut - unspecified [NUTS] Allergy Severe HIVES, Verified 03/14/21 23:05 DIFF BREATHING, THROAT SWELLS peanut Allergy Severe Anaphylaxis Verified 03/14/21 22:10 Assessment & Plan Assessment & Plan (1) TREY (generalized anxiety disorder): Status: Acute Code(s): F41.1 - Generalized anxiety disorder (2) MDD (major depressive disorder), recurrent severe, without psychosis: Status: Acute Code(s): F33.2 - Major depressive disorder, recurrent severe without psychotic features Assessment and Plan: 35 y.o. Who carries a dx of PTSD, MDD recurrent, TREY. She is a lateral transfer from [facility], admitted on 02/18/21 for depression, anxiety, and SI. Recent perceptual disturbances of 's image and voice, he from suicide 2 yr ago. Plan: Pt is here for ECT. Med reconciliation done. Pt reports she is supposed to be on doxazosin 4 mg at bedtime and 2 mg QD (this was her dose of prazosin and it was switched to doxazosin at [facility], however discharge listed doxazosin as 1 mg QHS). Will increase doxazosin to 2 mg QHS and defer to primary team for adjustments. Pt reports she is still on trileptal 300 mg BID but this was not on [facility] discharge. Pt also reports benefit on ativan 0.5 mg BID PRN for agitation, anxiety- will re-start, as this helps when pt has urges to self harm in context of anxiety and agitation. Monitor response to medications. Monitor for safety in the milieu. Discharge on stabilization. Patient seen. Chart reviewed. Discussed with team. Obtain collateral contact info?as needed 03/15/21: Increase Doxazosin to 4 mg HS. Monitor for SE. Pt asks to have 2 mg return to daytime dosing-will titrate gradually. Risperdal 0.25 mg bid prn grounding assist to manage SIBS. Medical clearance for ECT ordered-hospitalist, Chest xray, EKG, CMP, CBC Pt will move closer to nursing station as she has been struggling with her safety and working on a plan of care with team to remain safe while keeping as much of her own control as possible. Weekend Coverage: 03/16- Pt continues to endorse urges for self harm and had incident of superficial cutting this morning, told cleaning staff supervisor after the event and had it dressed. Reminded pt that she has PRN riserpdal ordered and pt is willing to utilize. Will monitor for benefit. 03/17-Pt discloses urges and plan to cut herself with a staple, had this in possession and was able to give this up. Also disclosed command AH. Reports positive benefit on PRN risperdal, will increase to Q4H PRN. Encouraged coping skills. NPO orders to start at midnight for ECT tomorrow. 03/18/21 ECT completed. No medication changes today. 03/19/21 Continue current regime as pt reports cheeking/saving medications since admission Tolerated ECT 03/18/21 Continue plan of care. 03/20/21 Continue current plan of care Mindfulness exercises 03/21-non ECT day. 03/21/21 Increase Venlafaxine ER to 187.5 mg daily Encourage use of Risperdal to assist with grounding Initiated use of DBT skills with targeted handouts focused on mgt of suffering. 03/22/21 Post ECT-resting/sleeping after treatment Continue current regime. 03/23/21: Ct ECT and 1:1. Tolerating ECT well. 03/24/21: Ct ECT/1:1. 03/25/21: ECT Today. Pt resting/napping most of the day. Team report no active self-harm throughout the weekend, just thoughts however pt reports no improvement. Continue current plan. 03/26/21: Pt reports some improvement with ongoing thoughts of self-harm and SIBS for relief of sx. 03/27/21: Positive strep culture-Augmentin initiated by Dr. Sen during ECT Pt appears brighter-did attend group. Continue current plan of care. 03/28/21: Positive COVID screen Appears brighter. ECT will be on hold for 10 days Pt believes she will need to remain in hospital during this time due to safety concerns. Message left for pt's father Ray Moreno [phone]. I spent 25 minutes with the patient and/or on the patient floor today, greater than?50% of which was spent counseling/coordinating care. Patient educated on: therapeutic strategies Informed Consent: understands and further education needed Reason for contiued inpatient stay Substantial Risk for: harm to self, inability to function and rapid decompensation
[2021-03-28 21:45] VITALS: BP 120/75; PULSE 89
[2021-03-28] MEDS: traZODone HCL 100 MG TABLET PO (21:45)
[2021-03-28] MEDS: Doxazosin Mesylate 2 MG TABLET 4 MG PO (21:45)
[2021-03-29] VITALS (10 sets, daily range): BP systolic 112–127; BP diastolic 70–86; PULSE 87–104; RESP 10–22; TEMP 36.5–36.8; O2SAT 95–99
[2021-03-29] MEDS: Omeprazole 20 MG CAPSULE.DR PO (06:56)
--- NOTE | 2021-03-29 11:52 | HO.ANESPROP2 ---
[facility] Active Problems Active Problems: All Active Problems (Updated 03/16/21 @ 16:28 by KAYDEN Jeter) MDD (major depressive disorder), recurrent severe, without psychosis (Acute) TREY (generalized anxiety disorder) (Acute) Past Medical History Medical History TREY (generalized anxiety disorder) GERD (gastroesophageal reflux disease) HTN (hypertension) MDD (major depressive disorder), recurrent severe, without psychosis MARIA TERESA (obstructive sleep apnea) Post traumatic stress disorder (PTSD) Functional capacity: independent ambulation Family History Family History Mother Heart disease Family history of problems with anesthesia: No Surgical History Surgical History H/O gastric bypass Hx of cholecystectomy History of Problems with Anesthesia: No Social History Social History Household Members: Other Household Members Other:: 17 yo daughter Housing: Apartment Do you presently have visiting nurse or other home services: No Alcohol intake: current Alcohol intake frequency: holidays/special occasions only Patient Tobacco Use Status: Never used Tobacco Use of substances other than those prescribed or required for medical reasons: No Currently Displaying Signs/Symptoms of Drug Intoxication Withdrawal: No Have you been hit, kicked, punched, or otherwise hurt by someone within the past year? If so, by whom?: No Do you feel safe in your current relationship?: Yes Is there a partner from a previous relationship who is making you feel unsafe now?: No Are you made to feel afraid or neglected: No Are you DNR?: No Advance Directives: No Advance Directives Information Provided: No Advance Directives on File: No Do you have thoughts of harming others: None Do you have a plan to hurt others: No Plan Recently lost weight without trying: No Eating poorly because of decreased appetite: No Nutrition Risks: No Nutritional Risk Patient : No : No Poor oral hygiene: No service: No Sexual orientation: Did not discuss Meds Allergies Allergy/AdvReac Type Severity Reaction Status Date / Time coconut Allergy Severe Anaphylaxis Verified 03/14/21 22:10 nut - unspecified [NUTS] Allergy Severe HIVES, Verified 03/14/21 23:05 DIFF BREATHING, THROAT SWELLS peanut Allergy Severe Anaphylaxis Verified 03/14/21 22:10 Active Medications: Current Medications Acetaminophen (Acetaminophen 325 Mg Tablet) 650 mg PO Q6H PRN PRN Reason: Headache/Pain Mild Scale (1-3) Last Admin: 03/25/21 17:50 Dose: 650 mg Documented by: Al Hydroxide/Mg Hydroxide (Magnesium Hydrox/Alum Hydrox 30 Ml Oral.Susp) 30 ml PO Q6H PRN PRN Reason: Heartburn/Nausea Last Admin: 03/18/21 19:27 Dose: 30 ml Documented by: Amoxicillin/Clavulanate Potassium (Amoxicillin/Potassium Clav 500 Mg Tablet) 500 mg PO Q12H JEFFREY Last Admin: 03/28/21 21:45 Dose: 500 mg Documented by: Aripiprazole (Aripiprazole 20 Mg Tablet) 20 mg PO DAILY [facility] Last Admin: 03/28/21 08:04 Dose: 20 mg Documented by: Bacitracin (Bacitracin Oint 14 Gm Tube) 1 appl TOPICAL BID JEFFREY; Protocol Last Admin: 03/28/21 22:23 Dose: Not Given Documented by: Benzocaine (Throat Lozenge, Medicated Lozenge) 1 lozenge MUCOUS MEM Q2H PRN PRN Reason: Sore Throat Last Admin: 03/26/21 14:55 Dose: 1 lozenge Documented by: Benztropine Mesylate (Benztropine Mesylate 1 Mg Tablet) 1 mg PO BID JEFFREY Last Admin: 03/28/21 21:45 Dose: 1 mg Documented by: Calcium Carbonate (Calcium Carbonate 500 Mg Tablet) 500 mg PO TID PRN PRN Reason: heartburn Doxazosin Mesylate (Doxazosin Mesylate 2 Mg Tablet) 4 mg PO BEDTIME JEFFREY; Protocol Last Admin: 03/28/21 21:45 Dose: 4 mg Documented by: Hydroxyzine HCl (Hydroxyzine Hcl 50 Mg Tablet) 50 mg PO Q6H PRN PRN Reason: Anxiety Last Admin: 03/25/21 20:44 Dose: 50 mg Documented by: Lactated Ringer's (Lr) 1,000 mls @ 50 mls/hr IVCONT .Q20H JEFFREY Last Admin: 03/29/21 00:17 Dose: Not Given Documented by: Ibuprofen (Ibuprofen 400 Mg Tablet) 400 mg PO Q8H PRN PRN Reason: mild-mod pain Last Admin: 03/22/21 18:05 Dose: 400 mg Documented by: Magnesium Hydroxide (Milk Of Magnesia 30 Ml Oral.Susp) 30 ml PO DAILY PRN PRN Reason: Constipation Multi-Ingred Medicated Throat [place] (Throat [place], Medicated 20 Ml Bottle) 1 spray MUCOUS MEM Q2H PRN PRN Reason: discomfort Omeprazole (Omeprazole 20 Mg Capsule.Dr) 20 mg PO DAILY@0630 [facility] Last Admin: 03/29/21 06:56 Dose: 20 mg Documented by: Ondansetron HCl (Ondansetron Odt 4 Mg Tab.Rapdis) 4 mg TRANSLINGU Q8H PRN PRN Reason: nausea Last Admin: 03/23/21 16:23 Dose: 4 mg Documented by: Quetiapine Fumarate (Quetiapine Fumarate 100 Mg Tablet) 100 mg PO TID [facility] Last Admin: 03/28/21 21:45 Dose: 100 mg Documented by: Quetiapine Fumarate (Quetiapine Fumarate 50 Mg Tablet) 50 mg PO Q6H PRN PRN Reason: agitation Risperidone (Risperidone 0.25 Mg Tablet) 0.25 mg PO Q4H PRN PRN Reason: assistance with grounding Last Admin: 03/24/21 18:59 Dose: 0.25 mg Documented by: Trazodone HCl (Trazodone Hcl 100 Mg Tablet) 100 mg PO BEDTIME PRN PRN Reason: Insomnia Last Admin: 03/28/21 21:45 Dose: 100 mg Documented by: Venlafaxine HCl (Venlafaxine Hcl Er 37.5 Mg Cap.Er.24h) 187.5 mg PO DAILY [facility] Last Admin: 03/28/21 08:04 Dose: 187.5 mg Documented by: Zinc Acetate/Diphenhydramine (Diphenhydramine Hcl 2 % Cream 28 Gm Tube) 1 appl TOPICAL BID PRN PRN Reason: Itching Home Medications Medication Instructions Recorded Confirmed Last Taken Type trazodone 100 mg PO BEDTIME 03/15/21 03/15/21 Unknown History Exam Exam Date and Time: March 29, 2021 1152 Height,Weight and Vital Signs: Height 5 ft 2 in Weight 83.915 kg Last Vital Signs Temp 97.9 F 03/29/21 09:22 Pulse 87 03/29/21 09:22 Resp 16 03/29/21 09:22 BP 113/70 03/29/21 09:22 Pulse Ox 97 03/29/21 09:22 Pertinent Lab Results Pertinent Lab Results: Laboratory Tests 03/15/21 03/15/21 03/15/21 07:48 07:48 07:48 WBC RBC Hgb Hct MCV MCH MCHC RDW Plt Count MPV Immature Gran % (Auto) Neut % (Auto) Lymph % (Auto) [place] % (Auto) Eos % (Auto) Baso % (Auto) Lymph # (Auto) [place] # (Auto) Eos # (Auto) Baso # (Auto) Abs Immat Gran (auto) Absolute Neuts (auto) Absolute Nucleated RBC Nucleated RBC % (auto) Sodium Potassium Chloride Carbon Dioxide Anion Gap BUN Creatinine Estim Creat Clear Calc Estimated GFR Random Glucose Estimat Average Glucose 82 Hemoglobin A1c % 4.5 Calcium Magnesium 2.0 Total Bilirubin 0.5 Direct Bilirubin 0.2 AST 27 ALT 28 Alkaline Phosphatase 81 Total Protein 6.4 L Albumin 3.9 Triglycerides 186 Cholesterol 196 LDL Cholesterol, Calc 95 HDL Cholesterol 64 Vitamin B12 342 Folate 12.3 TSH 1.14 Free T4 0.66 L COVID-19 (JEFF) COVID-19 Clin Com S. pyogenes GrpA TRESSA 03/16/21 03/16/21 03/26/21 07:51 07:51 17:49 WBC 6.9 RBC 4.87 Hgb 14.8 Hct 45.8 MCV 94.0 MCH 30.4 MCHC 32.3 RDW 13.2 Plt Count 297 MPV 10.6 Immature Gran % (Auto) 0.1 Neut % (Auto) 49.0 Lymph % (Auto) 37.8 [place] % (Auto) 8.9 Eos % (Auto) 3.5 Baso % (Auto) 0.7 Lymph # (Auto) 2.6 [place] # (Auto) 0.6 Eos # (Auto) 0.2 Baso # (Auto) 0.1 Abs Immat Gran (auto) 0.01 Absolute Neuts (auto) 3.4 Absolute Nucleated RBC 0.000 Nucleated RBC % (auto) 0.0 Sodium 144 Potassium 4.0 Chloride 106 Carbon Dioxide 29 Anion Gap 13 BUN 7 L Creatinine 0.82 Estim Creat Clear Calc TNP Estimated GFR > 60 Random Glucose 85 Estimat Average Glucose Hemoglobin A1c % Calcium 9.7 Magnesium Total Bilirubin 0.4 Direct Bilirubin AST 25 ALT 25 Alkaline Phosphatase 79 Total Protein 6.7 Albumin 4.0 Triglycerides Cholesterol LDL Cholesterol, Calc HDL Cholesterol Vitamin B12 Folate TSH Free T4 COVID-19 (JEFF) COVID-19 Clin Com S. pyogenes GrpA TRESSA Positive A 03/27/21 18:58 WBC RBC Hgb Hct MCV MCH MCHC RDW Plt Count MPV Immature Gran % (Auto) Neut % (Auto) Lymph % (Auto) [place] % (Auto) Eos % (Auto) Baso % (Auto) Lymph # (Auto) [place] # (Auto) Eos # (Auto) Baso # (Auto) Abs Immat Gran (auto) Absolute Neuts (auto) Absolute Nucleated RBC Nucleated RBC % (auto) Sodium Potassium Chloride Carbon Dioxide Anion Gap BUN Creatinine Estim Creat Clear Calc Estimated GFR Random Glucose Estimat Average Glucose Hemoglobin A1c % Calcium Magnesium Total Bilirubin Direct Bilirubin AST ALT Alkaline Phosphatase Total Protein Albumin Triglycerides Cholesterol LDL Cholesterol, Calc HDL Cholesterol Vitamin B12 Folate TSH Free T4 COVID-19 (JEFF) Positive A COVID-19 Clin Com See Note S. pyogenes GrpA TRESSA Airway Mallampati Class: II TM Dist: >3cm Neck ROM: Full Heart: rrr Lungs: cta Assessment and Plan Assessment Anesthesia Assessment: Anesthesia Plan Discussed and Chart Reviewed Final Anesthetic Review Family History of Problems with Anesthesia: No History of Problems with Anesthesia: No NPO: Yes ASA Class: III Final Preanesthetic Review: No Changes in Pt Med Stat, Meds/Allgs Chart Reviewed and Consent Obtained/Reviewed Patient Risk: Intermediate Procedure Risk: Intermediate Anesthetic Plan Anesthetic Plan: GA Disposition: Standard PACU
--- NOTE | 2021-03-29 12:00 | MHC.SHP ---
Pre-Procedural Eval Section A Date of Service: 03/29/21 The patient is an INPATIENT: Yes Changes since office visit: Yes Cold of Flu in the past 2 weeks, Yes New Medical Problems, Yes Changes in Medication and Yes Patient answered all questions The History & Physical has been completed within 30 days and I have reviewed it.: Yes Section B Chief Complaint: Major Depressive Disorder Allergies: Allergies Allergy/AdvReac Type Severity Reaction Status Date / Time coconut Allergy Severe Anaphylaxis Verified 03/14/21 22:10 nut - unspecified [NUTS] Allergy Severe HIVES, Verified 03/14/21 23:05 DIFF BREATHING, THROAT SWELLS peanut Allergy Severe Anaphylaxis Verified 03/14/21 22:10 Plan I have reviewed the history and physical and performed a pertinent physical examination on my patient. No changes have occurred unless specified.
--- NOTE | 2021-03-29 12:02 | HO.ECTPROC ---
ECT Procedure Note Diagnosis/Treatment Date of Service: 03/29/21 Diagnosis: Major Depressive Disorder and Other (PTSD) Current Treatment Number: 6 Treatment: Series Interval Clinical Notes: Patient COVID positive incidental finding oxygen levels could strep positive on antibiotics patient appears medically stable after discussion with Anesthesia felt could be done safely in COVID negative pressure surgical suite patient agreeable feels has been helpful ECT Settings Device: THYMATRON DGx Electrode Placement: Bitemporal Program/Pulse Width: 0.50 Energy Percent: 100 Seizure Duration By EEG (in seconds): 22 Medications Administration General Anesthetic: Etomidate (12 plus 8) Muscle Relaxant: Succinylcholine Ancillary Medications Anti-emetics: Zofran - Pre ECT Miscillaneous Medications: Propofol and Midazolam Airway Management Airway Management: Bag Mask Ventilation (done in OR) Treatment Recommendations Notes: would give 14 mg or 16 mg bolus Pt Tolerated Procedure w/o Issue: Yes
[2021-03-29] MEDS: Venlafaxine HCl ER 37.5 MG CAP.ER.24H 187.5 MG PO (13:06)
[2021-03-29] MEDS: QUEtiapine Fumarate 100 MG TABLET PO ×3 (13:08→21:21)
[2021-03-29] MEDS: ARIPiprazole 20 MG TABLET PO (13:08)
[2021-03-29] MEDS: Amoxicillin/Potassium Clav 500 MG TABLET PO ×2 (13:08→21:14)
[2021-03-29] MEDS: Benztropine Mesylate 1 MG TABLET PO ×2 (13:18→21:22)
--- NOTE | 2021-03-29 17:10 | P.PNPSI_ITS ---
Subjective Subjective Date of Service: 03/29/21 Reason For Visit: Major Depressive Disorder Subjective Notes: Conditional Voluntary Medical Problems Affecting Mental Status: Yes (COVID) Interim History: Pt completed ECT. States she is experiencing some relief. Physically, sore throat is improving-only mild. Denies other symptoms of illness at this time. Discussed boredom-OT has given pt an activity package for work over the weekend. Pt continues on one to one-feels this is still needed as she is not feeling essentially safe with herself, but does report some relief of symptoms. Medication Compliance: Yes Side effects from medications: No Attending Groups: No Review of Systems Acute medical concerns: Yes COVID+ Medical Review of Systems: unchanged Review of Systems Reports sore throat (diminished symptoms per pt report) Psychiatric: Reports anxiety, Reports depression, Reports hopelessness and Repor ts suicidal ideation Mental Status Exam Mental Status Exam Patient Appearance: Appropriate Patient Orientation: Person, Place, Time and Situation Level of Consciousness: Awake Patient Behavior: Cooperative, Passive and Good Eye Contact Mood Description: Depressed Affect Description: Flat Patient Cognition Impaired: No Ability to Follow Directions: Fair Speech Pattern: Spontaneous Speech and Soft-Spoken Memory Description: Episodic Impaired Hallucinations: None Delusions: Not Present Perceptual Disturbances: Depersonalization and Derealization Thought Process: Distracted and Rumination Thought Content: positive for [place], positive for Circumstantial, positive for Perseveration, positive for Slowed Thinking and positive for Suicidal Ideation Depressive Symptoms: Increased Anxiety, Diff. Making Decisions, Hopelessness, Thoughts of /Suicide, Low Self Esteem, Loss of Energy and Difficulty Concentrating Judgement: Fair Diagnostics Vital Signs (24Hr): Vital Signs - 24 hr 03/28/21 18:00 03/28/21 21:45 03/29/21 09:22 Temperature 98.1 F 97.9 F Pulse Rate 89 89 87 Respiratory Rate 16 16 Blood Pressure 120/75 120/75 113/70 Pulse Oximetry 99 97 03/29/21 12:32 03/29/21 12:36 03/29/21 12:40 Temperature 98 F Pulse Rate 88 88 96 Respiratory Rate 10 L 19 20 Blood Pressure 125/86 117/78 119/78 Pulse Oximetry 95 98 98 03/29/21 12:45 03/29/21 12:50 03/29/21 12:55 Temperature 98.2 F Pulse Rate 102 H 102 H 98 Respiratory Rate 22 H 21 H 21 H Blood Pressure 127/75 127/76 124/70 Pulse Oximetry 99 98 98 03/29/21 13:18 Temperature 97.7 F Pulse Rate 93 Respiratory Rate 16 Blood Pressure 112/71 Pulse Oximetry 98 BMI result Body Mass Index 33.8 Labs Results: 03/16/21 07:51 03/16/21 07:51 Labs: Laboratory Results - last 48 hr 03/27/21 18:58 COVID-19 (JEFF) Positive A COVID-19 Clin Com See Note Imaging Radiology Impressions: ITS Impressions Chest X-Ray 03/15/21 19:02 IMPRESSION: Unremarkable examination. Medications Medications Current Medications Acetaminophen (Acetaminophen 325 Mg Tablet) 650 mg PO Q6H PRN PRN Reason: Headache/Pain Mild Scale (1-3) Last Admin: 03/25/21 17:50 Dose: 650 mg Documented by: Al Hydroxide/Mg Hydroxide (Magnesium Hydrox/Alum Hydrox 30 Ml Oral.Susp) 30 ml PO Q6H PRN PRN Reason: Heartburn/Nausea Last Admin: 03/18/21 19:27 Dose: 30 ml Documented by: Amoxicillin/Clavulanate Potassium (Amoxicillin/Potassium Clav 500 Mg Tablet) 500 mg PO Q12H JEFFREY Last Admin: 03/29/21 13:08 Dose: 500 mg Documented by: Aripiprazole (Aripiprazole 20 Mg Tablet) 20 mg PO DAILY JEFFREY Last Admin: 03/29/21 13:08 Dose: 20 mg Documented by: Bacitracin (Bacitracin Oint 14 Gm Tube) 1 appl TOPICAL BID JEFFREY; Protocol Last Admin: 03/29/21 13:18 Dose: Not Given Documented by: Benzocaine (Throat Lozenge, Medicated Lozenge) 1 lozenge MUCOUS MEM Q2H PRN PRN Reason: Sore Throat Last Admin: 03/26/21 14:55 Dose: 1 lozenge Documented by: Benztropine Mesylate (Benztropine Mesylate 1 Mg Tablet) 1 mg PO BID JEFFREY Last Admin: 03/29/21 13:18 Dose: 1 mg Documented by: Calcium Carbonate (Calcium Carbonate 500 Mg Tablet) 500 mg PO TID PRN PRN Reason: heartburn Doxazosin Mesylate (Doxazosin Mesylate 2 Mg Tablet) 4 mg PO BEDTIME JEFFREY; Protocol Last Admin: 03/28/21 21:45 Dose: 4 mg Documented by: Hydroxyzine HCl (Hydroxyzine Hcl 50 Mg Tablet) 50 mg PO Q6H PRN PRN Reason: Anxiety Last Admin: 03/25/21 20:44 Dose: 50 mg Documented by: Lactated Ringer's (Lr) 1,000 mls @ 50 mls/hr IVCONT .Q20H [facility] Last Admin: 03/29/21 00:17 Dose: Not Given Documented by: Ibuprofen (Ibuprofen 400 Mg Tablet) 400 mg PO Q8H PRN PRN Reason: mild-mod pain Last Admin: 03/22/21 18:05 Dose: 400 mg Documented by: Magnesium Hydroxide (Milk Of Magnesia 30 Ml Oral.Susp) 30 ml PO DAILY PRN PRN Reason: Constipation Multi-Ingred Medicated Throat [place] (Throat [place], Medicated 20 Ml Bottle) 1 spray MUCOUS MEM Q2H PRN PRN Reason: discomfort Omeprazole (Omeprazole 20 Mg Capsule.Dr) 20 mg PO DAILY@0630 [facility] Last Admin: 03/29/21 06:56 Dose: 20 mg Documented by: Ondansetron HCl (Ondansetron Odt 4 Mg Tab.Rapdis) 4 mg TRANSLINGU Q8H PRN PRN Reason: nausea Last Admin: 03/23/21 16:23 Dose: 4 mg Documented by: Quetiapine Fumarate (Quetiapine Fumarate 100 Mg Tablet) 100 mg PO TID [facility] Last Admin: 03/29/21 16:21 Dose: 100 mg Documented by: Quetiapine Fumarate (Quetiapine Fumarate 50 Mg Tablet) 50 mg PO Q6H PRN PRN Reason: agitation Risperidone (Risperidone 0.25 Mg Tablet) 0.25 mg PO Q4H PRN PRN Reason: assistance with grounding Last Admin: 03/24/21 18:59 Dose: 0.25 mg Documented by: Trazodone HCl (Trazodone Hcl 100 Mg Tablet) 100 mg PO BEDTIME PRN PRN Reason: Insomnia Last Admin: 03/28/21 21:45 Dose: 100 mg Documented by: Venlafaxine HCl (Venlafaxine Hcl Er 37.5 Mg Cap.Er.24h) 187.5 mg PO DAILY [facility] Last Admin: 03/29/21 13:06 Dose: 187.5 mg Documented by: Zinc Acetate/Diphenhydramine (Diphenhydramine Hcl 2 % Cream 28 Gm Tube) 1 appl TOPICAL BID PRN PRN Reason: Itching Allergies Allergies Allergy/AdvReac Type Severity Reaction Status Date / Time coconut Allergy Severe Anaphylaxis Verified 03/14/21 22:10 nut - unspecified [NUTS] Allergy Severe HIVES, Verified 03/14/21 23:05 DIFF BREATHING, THROAT SWELLS peanut Allergy Severe Anaphylaxis Verified 03/14/21 22:10 Assessment & Plan Assessment & Plan (1) TREY (generalized anxiety disorder): Status: Acute Code(s): F41.1 - Generalized anxiety disorder (2) MDD (major depressive disorder), recurrent severe, without psychosis: Status: Acute Code(s): F33.2 - Major depressive disorder, recurrent severe without psychotic features Assessment and Plan: 35 y.o. Who carries a dx of PTSD, MDD recurrent, TREY. She is a lateral transfer from [facility], admitted on 02/18/21 for depression, anxiety, and SI. Recent perceptual disturbances of 's image and voice, he from suicide 2 yr ago. Plan: Pt is here for ECT. Med reconciliation done. Pt reports she is supposed to be on doxazosin 4 mg at bedtime and 2 mg QD (this was her dose of prazosin and it was switched to doxazosin at [facility], however discharge listed doxazosin as 1 mg QHS). Will increase doxazosin to 2 mg QHS and defer to primary team for adjustments. Pt reports she is still on trileptal 300 mg BID but this was not on [facility] discharge. Pt also reports benefit on ativan 0.5 mg BID PRN for agitation, anxiety- will re-start, as this helps when pt has urges to self harm in context of anxiety and agitation. Monitor response to medications. Monitor for safety in the milieu. Discharge on stabilization. Patient seen. Chart reviewed. Discussed with team. Obtain collateral contact info?as needed 03/15/21: Increase Doxazosin to 4 mg HS. Monitor for SE. Pt asks to have 2 mg return to daytime dosing-will titrate gradually. Risperdal 0.25 mg bid prn grounding assist to manage SIBS. Medical clearance for ECT ordered-hospitalist, Chest xray, EKG, CMP, CBC Pt will move closer to nursing station as she has been struggling with her safety and working on a plan of care with team to remain safe while keeping as much of her own control as possible. Weekend Coverage: 03/16- Pt continues to endorse urges for self harm and had incident of superficial cutting this morning, told staff auditor after the event and had it dressed. Reminded pt that she has PRN riserpdal ordered and pt is willing to utilize. Will monitor for benefit. 03/17-Pt discloses urges and plan to cut herself with a staple, had this in possession and was able to give this up. Also disclosed command AH. Reports positive benefit on PRN risperdal, will increase to Q4H PRN. Encouraged coping skills. NPO orders to start at midnight for ECT tomorrow. 03/18/21 ECT completed. No medication changes today. 03/19/21 Continue current regime as pt reports cheeking/saving medications since admission Tolerated ECT 03/18/21 Continue plan of care. 03/20/21 Continue current plan of care Mindfulness exercises 03/21-non ECT day. 03/21/21 Increase Venlafaxine ER to 187.5 mg daily Encourage use of Risperdal to assist with grounding Initiated use of DBT skills with targeted handouts focused on mgt of suffering. 03/22/21 Post ECT-resting/sleeping after treatment Continue current regime. 03/23/21: Ct ECT and 1:1. Tolerating ECT well. 03/24/21: Ct ECT/1:1. 03/25/21: ECT Today. Pt resting/napping most of the day. Team report no active self-harm throughout the weekend, just thoughts however pt reports no imp rovement. Continue current plan. 03/26/21: Pt reports some improvement with ongoing thoughts of self-harm and SIBS for relief of sx. 03/27/21: Positive strep culture-Augmentin initiated by Dr. Sen during ECT Pt appears brighter-did attend group. Continue current plan of care. 03/28/21: Positive COVID screen Appears brighter. ECT will be on hold for 10 days Pt believes she will need to remain in hospital during this time due to safety concerns. Message left for pt's father Ray Moreno [phone]. 03/29/21 Pt reporting some improvement in symptoms Continue current plan of care ECT 04/01. I spent 20 minutes with the patient and/or on the patient floor today, greater than?50% of which was spent counseling/coordinating care. Patient educated on: therapeutic strategies Informed Consent: understands Reason for contiued inpatient stay Substantial Risk for: harm to self, inability to function and rapid decompensation
[2021-03-29] MEDS: hydrOXYzine HCL 50 MG TABLET PO (21:14)
[2021-03-29] MEDS: Doxazosin Mesylate 2 MG TABLET 4 MG PO (21:14)
[2021-03-29] MEDS: traZODone HCL 100 MG TABLET PO (22:17)
[2021-03-30 06:00] VITALS: BP 118/76; PULSE 96; TEMP 36.7; O2SAT 97
[2021-03-30] MEDS: Benztropine Mesylate 1 MG TABLET PO ×2 (09:19→20:47)
[2021-03-30] MEDS: Omeprazole 20 MG CAPSULE.DR PO (09:19)
[2021-03-30] MEDS: ARIPiprazole 20 MG TABLET PO (09:19)
[2021-03-30] MEDS: Venlafaxine HCl ER 37.5 MG CAP.ER.24H 187.5 MG PO (09:19)
[2021-03-30] MEDS: QUEtiapine Fumarate 100 MG TABLET PO ×3 (09:19→20:47)
[2021-03-30] MEDS: Amoxicillin/Potassium Clav 500 MG TABLET PO ×2 (09:19→20:47)
[2021-03-30] MEDS: Bacitracin Oint 14 GM TUBE 1 APPL TOPICAL (09:20)
[2021-03-30 18:00] VITALS: BP 115/72; PULSE 91; RESP 14; TEMP 36.3; O2SAT 99
--- NOTE | 2021-03-30 18:04 | HO.PSYCHPN ---
Subjective Subjective Date of Service: 03/30/21 Reason For Visit: Major Depressive Disorder Interim History: Appears brighter and reports some improvement in mood and sore throat Continues on one to one and in isolation due to COVID Wondering when she will be tested again. Watching [place] movies with her one to one today. Reports some thoughts of SIBS and SI but overall decreased. Medication Compliance: Yes Side effects from medications: No Attending Groups: No Review of Systems Acute medical concerns: No Medical Review of Systems: unchanged Review of Systems Reports sore throat (diminished symptoms per pt report) Psychiatric: Reports anxiety, Reports depression, Reports hopelessness and Reports suicidal ideation Mental Status Exam Mental Status Exam Patient Appearance: Appropriate Patient Orientation: Person, Place, Time and Situation Level of Consciousness: Awake Patient Behavior: Cooperative, Passive and Good Eye Contact Mood Description: Depressed Affect Description: Flat Patient Cognition Impaired: No Ability to Follow Directions: Fair Speech Pattern: Spontaneous Speech and Soft-Spoken Memory Description: Episodic Impaired Hallucinations: None Delusions: Not Present Perceptual Disturbances: Depersonalization and Derealization Thought Process: Distracted and Rumination Thought Content: positive for [place], positive for Circumstantial, positive for Perseveration, positive for Slowed Thinking and positive for Suicidal Ideation Depressive Symptoms: Increased Anxiety, Diff. Making Decisions, Hopelessness, Thoughts of /Suicide, Low Self Esteem, Loss of Energy and Difficulty Concentrating Judgement: Fair Diagnostics Vital Signs (24Hr): Vital Signs - 24 hr 03/29/21 21:14 03/29/21 21:32 03/30/21 06:00 Temperature 98.3 F 98.0 F Pulse Rate 104 H 104 H 96 Respiratory Rate 18 Blood Pressure 116/73 116/73 118/76 Pulse Oximetry 98 97 BMI result Body Mass Index 33.8 Labs Results: 03/16/21 07:51 03/16/21 07:51 Imaging Radiology Impressions: ITS Impressions Chest X-Ray 03/15/21 19:02 IMPRESSION: Unremarkable examination. Medications Medications Current Medications Acetaminophen (Acetaminophen 325 Mg Tablet) 650 mg PO Q6H PRN PRN Reason: Headache/Pain Mild Scale (1-3) Last Admin: 03/25/21 17:50 Dose: 650 mg Documented by: Al Hydroxide/Mg Hydroxide (Magnesium Hydrox/Alum Hydrox 30 Ml Oral.Susp) 30 ml PO Q6H PRN PRN Reason: Heartburn/Nausea Last Admin: 03/18/21 19:27 Dose: 30 ml Documented by: Amoxicillin/Clavulanate Potassium (Amoxicillin/Potassium Clav 500 Mg Tablet) 500 mg PO Q12H [facility] Last Admin: 03/30/21 09:19 Dose: 500 mg Documented by: Aripiprazole (Aripiprazole 20 Mg Tablet) 20 mg PO DAILY [facility] Last Admin: 03/30/21 09:19 Dose: 20 mg Documented by: Bacitracin (Bacitracin Oint 14 Gm Tube) 1 appl TOPICAL BID [facility]; Protocol Last Admin: 03/30/21 09:20 Dose: 1 appl Documented by: Benzocaine (Throat Lozenge, Medicated Lozenge) 1 lozenge MUCOUS MEM Q2H PRN PRN Reason: Sore Throat Last Admin: 03/26/21 14:55 Dose: 1 lozenge Documented by: Benztropine Mesylate (Benztropine Mesylate 1 Mg Tablet) 1 mg PO BID [facility] Last Admin: 03/30/21 09:19 Dose: 1 mg Documented by: Calcium Carbonate (Calcium Carbonate 500 Mg Tablet) 500 mg PO TID PRN PRN Reason: heartburn Doxazosin Mesylate (Doxazosin Mesylate 2 Mg Tablet) 4 mg PO BEDTIME [facility]; Protocol Last Admin: 03/29/21 21:14 Dose: 4 mg Documented by: Hydroxyzine HCl (Hydroxyzine Hcl 50 Mg Tablet) 50 mg PO Q6H PRN PRN Reason: Anxiety Last Admin: 03/29/21 21:14 Dose: 50 mg Documented by: Lactated Ringer's (Lr) 1,000 mls @ 50 mls/hr IVCONT .Q20H [facility] Last Admin: 03/30/21 15:46 Dose: Not Given Documented by: Ibuprofen (Ibuprofen 400 Mg Tablet) 400 mg PO Q8H PRN PRN Reason: mild-mod pain Last Admin: 03/22/21 18:05 Dose: 400 mg Documented by: Magnesium Hydroxide (Milk Of Magnesia 30 Ml Oral.Susp) 30 ml PO DAILY PRN PRN Reason: Constipation Multi-Ingred Medicated Throat [place] (Throat [place], Medicated 20 Ml Bottle) 1 spray MUCOUS MEM Q2H PRN PRN Reason: discomfort Omeprazole (Omeprazole 20 Mg Capsule.Dr) 20 mg PO DAILY@0630 [facility] Last Admin: 03/30/21 09:19 Dose: 20 mg Documented by: Ondansetron HCl (Ondansetron Odt 4 Mg Tab.Rapdis) 4 mg TRANSLINGU Q8H PRN PRN Reason: nausea Last Admin: 03/23/21 16:23 Dose: 4 mg Documented by: Quetiapine Fumarate (Quetiapine Fumarate 100 Mg Tablet) 100 mg PO TID [facility] Last Admin: 03/30/21 14:38 Dose: 100 mg Documented by: Quetiapine Fumarate (Quetiapine Fumarate 50 Mg Tablet) 50 mg PO Q6H PRN PRN Reason: agitation Risperidone (Risperidone 0.25 Mg Tablet) 0.25 mg PO Q4H PRN PRN Reason: assistance with grounding Last Admin: 03/24/21 18:59 Dose: 0.25 mg Documented by: Trazodone HCl (Trazodone Hcl 100 Mg Tablet) 100 mg PO BEDTIME PRN PRN Reason: Insomnia Last Admin: 03/29/21 22:17 Dose: 100 mg Documented by: Venlafaxine HCl (Venlafaxine Hcl Er 37.5 Mg Cap.Er.24h) 187.5 mg PO DAILY [facility] Last Admin: 03/30/21 09:19 Dose: 187.5 mg Documented by: Zinc Acetate/Diphenhydramine (Diphenhydramine Hcl 2 % Cream 28 Gm Tube) 1 appl TOPICAL BID PRN PRN Reason: Itching Allergies Allergies Allergy/AdvReac Type Severity Reaction Status Date / Time coconut Allergy Severe Anaphylaxis Verified 03/14/21 22:10 nut - unspecified [NUTS] Allergy Severe HIVES, Verified 03/14/21 23:05 DIFF BREATHING, THROAT SWELLS peanut Allergy Severe Anaphylaxis Verified 03/14/21 22:10 Assessment & Plan Assessment & Plan (1) TREY (generalized anxiety disorder): Status: Acute Code(s): F41.1 - Generalized anxiety disorder (2) MDD (major depressive disorder), recurrent severe, without psychosis: Status: Acute Code(s): F33.2 - Major depressive disorder, recurrent severe without psychotic features Assessment and Plan: 35 y.o. Who carries a dx of PTSD, MDD recurrent, TREY. She is a lateral transfer from [facility], admitted on 02/18/21 for depression, anxiety, and SI. Recent perceptual disturbances of 's image and voice, he from suicide 2 yr ago. Plan: Pt is here for ECT. Med reconciliation done. Pt reports she is supposed to be on doxazosin 4 mg at bedtime and 2 mg QD (this was her dose of prazosin and it was switched to doxazosin at [facility], however discharge listed doxazosin as 1 mg QHS). Will increase doxazosin to 2 mg QHS and defer to primary team for adjustments. Pt reports she is still on trileptal 300 mg BID but this was not on [facility] discharge. Pt also reports benefit on ativan 0.5 mg BID PRN for agitation, anxiety- will re-start, as this helps when pt has urges to self harm in context of anxiety and agitation. Monitor response to medications. Monitor for safety in the milieu. Discharge on stabilization. Patient seen. Chart reviewed. Discussed with team. Obtain collateral contact info?as needed 03/15/21: Increase Doxazosin to 4 mg HS. Monitor for SE. Pt asks to have 2 mg return to daytime dosing-will titrate gradually. Risperdal 0.25 mg bid prn grounding assist to manage SIBS. Medical clearance for ECT ordered-hospitalist, Chest xray, EKG, CMP, CBC Pt will move closer to nursing station as she has been struggling with her safety and working on a plan of care with team to remain safe while keeping as much of her own control as possible. Weekend Coverage: 03/16- Pt continues to endorse urges for self harm and had incident of superficial cutting this morning, told staff development educator after the event and had it dressed. Reminded pt that she has PRN riserpdal ordered and pt is willing to utilize. Will monitor for benefit. 03/17-Pt discloses urges and plan to cut herself with a staple, had this in possession and was able to give this up. Also disclosed command AH. Reports positive benefit on PRN risperdal, will increase to Q4H PRN. Encouraged coping skills. NPO orders to start at midnight for ECT tomorrow. 03/18/21 ECT completed. No medication changes today. 03/19/21 Continue current regime as pt reports cheeking/saving medications since admission Tolerated ECT 03/18/21 Continue plan of care. 03/20/21 Continue current plan of care Mindfulness exercises 03/21-non ECT day. 03/21/21 Increase Venlafaxine ER to 187.5 mg daily Encourage use of Risperdal to assist with grounding Initiated use of DBT skills with targeted handouts focused on mgt of suffering. 03/22/21 Post ECT-resting/sleeping after treatment Continue current regime. 03/23/21: Ct ECT and 1:1. Tolerating ECT well. 03/24/21: Ct ECT/1:1. 03/25/21: ECT Today. Pt resting/napping most of the day. Team report no active self-harm throughout the weekend, just thoughts however pt reports no improvement. Continue current plan. 03/26/21: Pt reports some improvement with ongoing thoughts of self-harm and SIBS for relief of sx. 03/27/21: Positive strep culture-Augmentin initiated by Dr. Sen during ECT Pt appears brighter-did attend group. Continue current plan of care. 03/28/21: Positive COVID screen Appears brighter. ECT will be on hold for 10 days Pt believes she will need to remain in hospital during this time due to safety concerns. Message left for pt's father Ray Moreno [phone]. 03/29/21 Pt reporting some improvement in symptoms Continue current plan of care ECT 04/01. 03/30/21 Continue current plan. I spent minutes with the patient and/or on the patient floor today, greater than?50% of which was spent counseling/coordinating care. Patient educated on: therapeutic strategies Informed Consent: understands Reason for contiued inpatient stay Substantial Risk for: harm to self, inability to function and rapid decompensation
[2021-03-30 20:46] VITALS: BP 115/72; PULSE 91
[2021-03-30] MEDS: hydrOXYzine HCL 50 MG TABLET PO (20:46)
[2021-03-30] MEDS: Doxazosin Mesylate 2 MG TABLET 4 MG PO (20:46)
[2021-03-31] MEDS: traZODone HCL 100 MG TABLET PO (01:19)
[2021-03-31 06:00] VITALS: BP 116/62; PULSE 96; TEMP 36.7
[2021-03-31] MEDS: QUEtiapine Fumarate 100 MG TABLET PO ×3 (08:56→21:39)
[2021-03-31] MEDS: Benztropine Mesylate 1 MG TABLET PO ×2 (08:56→21:39)
[2021-03-31] MEDS: Amoxicillin/Potassium Clav 500 MG TABLET PO ×2 (08:56→21:39)
[2021-03-31] MEDS: Omeprazole 20 MG CAPSULE.DR PO (08:56)
[2021-03-31] MEDS: ARIPiprazole 20 MG TABLET PO (08:56)
[2021-03-31] MEDS: Venlafaxine HCl ER 37.5 MG CAP.ER.24H 187.5 MG PO (08:56)
--- NOTE | 2021-03-31 15:42 | P.PNPSI_ITS ---
Subjective Subjective Date of Service: 03/31/21 Reason For Visit: Major Depressive Disorder Interim History: Pt continues on one to one with isolation precautions due to COVID. She reports ongoing safety issues/SI/SIBS but with progressive relief of sx. She appears and presents brighter with more energy and engagement-active with hobbies, TV and with a noticeable decrease of flattening of her affect. Medication Compliance: Yes Side effects from medications: No Attending Groups: No Review of Systems Acute medical concerns: No Medical Review of Systems: unchanged Review of Systems Reports sore throat (diminished symptoms per pt report) Psychiatric: Reports anxiety, Reports depression, Reports hopelessness and Reports suicidal ideation Mental Status Exam Mental Status Exam Patient Appearance: Appropriate Patient Orientation: Person, Place, Time and Situation Level of Consciousness: Awake Patient Behavior: Cooperative, Passive and Good Eye Contact Mood Description: Depressed Affect Description: Flat Patient Cognition Impaired: No Ability to Follow Directions: Fair Speech Pattern: Spontaneous Speech and Soft-Spoken Memory Description: Episodic Impaired Hallucinations: None Delusions: Not Present Perceptual Disturbances: Depersonalization and Derealization Thought Process: Distracted and Rumination Thought Content: positive for [place], positive for [place]um[place], positive for Perseveration, positive for Slowed Thinking and positive for Suicidal Ideati on Depressive Symptoms: Increased Anxiety, Diff. Making Decisions, Hopelessness, Thoughts of /Suicide, Low Self Esteem, Loss of Energy and Difficulty Concentrating Judgement: Fair Diagnostics Vital Signs (24Hr): Vital Signs - 24 hr 03/30/21 18:00 03/30/21 20:46 03/31/21 06:00 Temperature 97.3 F 98.1 F Pulse Rate 91 91 96 Respiratory Rate 14 Blood Pressure 115/72 115/72 116/62 Pulse Oximetry 99 BMI result Body Mass Index 33.8 Labs Results: 03/16/21 07:51 03/16/21 07:51 Imaging Radiology Impressions: ITS Impressions Chest X-Ray 03/15/21 19:02 IMPRESSION: Unremarkable examination. Medications Medications Current Medications Acetaminophen (Acetaminophen 325 Mg Tablet) 650 mg PO Q6H PRN PRN Reason: Headache/Pain Mild Scale (1-3) Last Admin: 03/25/21 17:50 Dose: 650 mg Documented by: Al Hydroxide/Mg Hydroxide (Magnesium Hydrox/Alum Hydrox 30 Ml Oral.Susp) 30 ml PO Q6H PRN PRN Reason: Heartburn/Nausea Last Admin: 03/18/21 19:27 Dose: 30 ml Documented by: Amoxicillin/Clavulanate Potassium (Amoxicillin/Potassium Clav 500 Mg Tablet) 500 mg PO Q12H [facility] Last Admin: 03/31/21 08:56 Dose: 500 mg Documented by: Aripiprazole (Aripiprazole 20 Mg Tablet) 20 mg PO DAILY [facility] Last Admin: 03/31/21 08:56 Dose: 20 mg Documented by: Bacitracin (Bacitracin Oint 14 Gm Tube) 1 appl TOPICAL BID [facility]; Protocol Last Admin: 03/31/21 08:57 Dose: Not Given Documented by: Benzocaine (Throat Lozenge, Medicated Lozenge) 1 lozenge MUCOUS MEM Q2H PRN PRN Reason: Sore Throat Last Admin: 03/26/21 14:55 Dose: 1 lozenge Documented by: Benztropine Mesylate (Benztropine Mesylate 1 Mg Tablet) 1 mg PO BID [facility] Last Admin: 03/31/21 08:56 Dose: 1 mg Documented by: Calcium Carbonate (Calcium Carbonate 500 Mg Tablet) 500 mg PO TID PRN PRN Reason: heartburn Doxazosin Mesylate (Doxazosin Mesylate 2 Mg Tablet) 4 mg PO BEDTIME [facility]; Protocol Last Admin: 03/30/21 20:46 Dose: 4 mg Documented by: Hydroxyzine HCl (Hydroxyzine Hcl 50 Mg Tablet) 50 mg PO Q6H PRN PRN Reason: Anxiety Last Admin: 03/30/21 20:46 Dose: 50 mg Documented by: Ibuprofen (Ibuprofen 400 Mg Tablet) 400 mg PO Q8H PRN PRN Reason: mild-mod pain Last Admin: 03/22/21 18:05 Dose: 400 mg Documented by: Magnesium Hydroxide (Milk Of Magnesia 30 Ml Oral.Susp) 30 ml PO DAILY PRN PRN Reason: Constipation Multi-Ingred Medicated Throat [place] (Throat [place], Medicated 20 Ml Bottle) 1 spray MUCOUS MEM Q2H PRN PRN Reason: discomfort Omeprazole (Omeprazole 20 Mg Capsule.Dr) 20 mg PO DAILY@0630 [facility] Last Admin: 03/31/21 08:56 Dose: 20 mg Documented by: Ondansetron HCl (Ondansetron Odt 4 Mg Tab.Rapdis) 4 mg TRANSLINGU Q8H PRN PRN Reason: nausea Last Admin: 03/23/21 16:23 Dose: 4 mg Documented by: Quetiapine Fumarate (Quetiapine Fumarate 100 Mg Tablet) 100 mg PO TID [facility] Last Admin: 03/31/21 14:17 Dose: 100 mg Documented by: Quetiapine Fumarate (Quetiapine Fumarate 50 Mg Tablet) 50 mg PO Q6H PRN PRN Reason: agitation Risperidone (Risperidone 0.25 Mg Tablet) 0.25 mg PO Q4H PRN PRN Reason: assistance with grounding Last Admin: 03/24/21 18:59 Dose: 0.25 mg Documented by: Trazodone HCl (Trazodone Hcl 100 Mg Tablet) 100 mg PO BEDTIME PRN PRN Reason: Insomnia Last Admin: 03/31/21 01:19 Dose: 100 mg Documented by: Venlafaxine HCl (Venlafaxine Hcl Er 37.5 Mg Cap.Er.24h) 187.5 mg PO DAILY [facility] Last Admin: 03/31/21 08:56 Dose: 187.5 mg Documented by: Zinc Acetate/Diphenhydramine (Diphenhydramine Hcl 2 % Cream 28 Gm Tube) 1 appl TOPICAL BID PRN PRN Reason: Itching Allergies Allergies Allergy/AdvReac Type Severity Reaction Status Date / Time coconut Allergy Severe Anaphylaxis Verified 03/14/21 22:10 nut - unspecified [NUTS] Allergy Severe HIVES, Verified 03/14/21 23:05 DIFF BREATHING, THROAT SWELLS peanut Allergy Severe Anaphylaxis Verified 03/14/21 22:10 Assessment & Plan Assessment & Plan (1) TREY (generalized anxiety disorder): Status: Acute Code(s): F41.1 - Generalized anxiety disorder (2) MDD (major depressive disorder), recurrent severe, without psychosis: Status: Acute Code(s): F33.2 - Major depressive disorder, recurrent severe without psychotic features Assessment and Plan: 35 y.o. Who carries a dx of PTSD, MDD recurrent, TREY. She is a lateral transfer from [facility], admitted on 02/18/21 for depression, anxiety, and SI. Recent perceptual disturbances of 's image and voice, he from suicide 2 yr ago. Plan: Pt is here for ECT. Med reconciliation done. Pt reports she is supposed to be on doxazosin 4 mg at bedtime and 2 mg QD (this was her dose of prazosin and it was switched to doxazosin at [facility], however discharge listed doxazosin as 1 mg QHS). Will increase doxazosin to 2 mg QHS and defer to primary team for adjustments. Pt reports she is still on trileptal 300 mg BID but this was not on [facility] discharge. Pt also reports benefit on ativan 0.5 mg BID PRN for agit ation, anxiety- will re-start, as this helps when pt has urges to self harm in context of anxiety and agitation. Monitor response to medications. Monitor for safety in the milieu. Discharge on stabilization. Patient seen. Chart reviewed. Discussed with team. Obtain collateral contact info?as needed 03/15/21: Increase Doxazosin to 4 mg HS. Monitor for SE. Pt asks to have 2 mg return to daytime dosing-will titrate gradually. Risperdal 0.25 mg bid prn grounding assist to manage SIBS. Medical clearance for ECT ordered-hospitalist, Chest xray, EKG, CMP, CBC Pt will move closer to nursing station as she has been struggling with her safety and working on a plan of care with team to remain safe while keeping as much of her own control as possible. Weekend Coverage: 03/16- Pt continues to endorse urges for self harm and had incident of superficial cutting this morning, told event staff after the event and had it dressed. Reminded pt that she has PRN riserpdal ordered and pt is willing to utilize. Will monitor for benefit. 03/17-Pt discloses urges and plan to cut herself with a staple, had this in possession and was able to give this up. Also disclosed command AH. Reports positive benefit on PRN risperdal, will increase to Q4H PRN. Encouraged coping skills. NPO orders to start at midnight for ECT tomorrow. 03/18/21 ECT completed. No medication changes today. 03/19/21 Continue current regime as pt reports cheeking/saving medications since admission Tolerated ECT 03/18/21 Continue plan of care. 03/20/21 Continue current plan of care Mindfulness exercises 03/21-non ECT day. 03/21/21 Increase Venlafaxine ER to 187.5 mg daily Encourage use of Risperdal to assist with grounding Initiated use of DBT skills with targeted handouts focused on mgt of suffering. 03/22/21 Post ECT-resting/sleeping after treatment Continue current regime. 03/23/21: Ct ECT and 1:1. Tolerating ECT well. 03/24/21: Ct ECT/1:1. 03/25/21: ECT Today. Pt resting/napping most of the day. Team report no active self-harm throughout the weekend, just thoughts however pt reports no improvement. Continue current plan. 03/26/21: Pt reports some improvement with ongoing thoughts of self-harm and SIBS for relief of sx. 03/27/21: Positive strep culture-Augmentin initiated by Dr. Sen during ECT Pt appears brighter-did attend group. Continue current plan of care. 03/28/21: Positive COVID screen Appears brighter. ECT will be on hold for 10 days Pt believes she will need to remain in hospital during this time due to safety concerns. Message left for pt's father Ray Moreno [phone]. 03/29/21 Pt reporting some improvement in symptoms Continue current plan of care ECT 04/01. 03/30/21 Continue current plan. 03/31/21 Continue current plan. When off isolation,consider change to 5 minute checks. I spent minutes with the patient and/or on the patient floor today, greater than?50% of which was spent counseling/coordinating care. Patient educated on: therapeutic strategies Informed Consent: understands Reason for contiued inpatient stay Substantial Risk for: harm to self, inability to function and rapid decompensation
[2021-03-31 21:30] VITALS: BP 117/82; PULSE 84; TEMP 36.3; O2SAT 98
[2021-03-31 21:39] VITALS: BP 117/82; PULSE 84
[2021-03-31] MEDS: Doxazosin Mesylate 2 MG TABLET 4 MG PO (21:39)
[2021-04-01 06:00] VITALS: BP 131/79; PULSE 83; RESP 17; TEMP 36.4; O2SAT 98
[2021-04-01] MEDS: Omeprazole 20 MG CAPSULE.DR PO (06:22)
--- NOTE | 2021-04-01 07:51 | PC.NURSE ---
Pt was prepped for ECT. PACU called up to floor. This insurance underwriter was calling PACU back to confirm and they stated they do not have Angelica Moreno on the OR schedule for today. I advised pt to stay NPO until we can confirm whether or not she is going.
[2021-04-01] MEDS: Benztropine Mesylate 1 MG TABLET PO ×2 (15:21→20:50)
[2021-04-01] MEDS: Venlafaxine HCl ER 37.5 MG CAP.ER.24H 187.5 MG PO (15:21)
[2021-04-01] MEDS: ARIPiprazole 20 MG TABLET PO (15:21)
[2021-04-01] MEDS: Amoxicillin/Potassium Clav 500 MG TABLET PO ×2 (15:21→21:19)
[2021-04-01] MEDS: QUEtiapine Fumarate 100 MG TABLET PO ×2 (15:22→20:47)
--- NOTE | 2021-04-01 16:33 | HO.PSYCHPN ---
Subjective Subjective Date of Service: 04/01/21 Reason For Visit: Major Depressive Disorder Subjective Notes: Conditional Voluntary Interim History: Pt did not have ECT today due to scheduling error- pt as a result ate breakfast. Team report improved mood, brighter affect. Continues in isolation and on one to one. Shared handouts with pt regarding mindfulness, pre-DBT preparatory work. She is considering DBT program post dischage Medication Compliance: Yes Side effects from medications: No Attending Groups: No Review of Systems Acute medical concerns: No Medical Review of Systems: unchanged Review of Systems Psychiatric: Reports anxiety, Reports depression, Reports anhedonia and Reports suicidal ideation (decreasing per pt report to team) Mental Status Exam Mental Status Exam Patient Appearance: Appropriate Patient Orientation: Person, Place, Time and Situation Level of Consciousness: Awake Patient Behavior: Cooperative, Passive and Good Eye Contact Mood Description: Depressed Affect Description: Flat Patient Cognition Impaired: No Ability to Follow Directions: Fair Speech Pattern: Spontaneous Speech and Soft-Spoken Memory Description: Episodic Impaired Hallucinations: None Delusions: Not Present Perceptual Disturbances: Depersonalization and Derealization Thought Process: Distracted and Rumination Thought Content: positive for [place], positive for Circumstantial, positive for Perseveration, positive for Slowed Thinking and positive for Suicidal Ideation Depressive Symptoms: Increased Anxiety, Diff. Making Decisions, Hopelessness, Thoughts of /Suicide, Low Self Esteem, Loss of Energy and Difficulty Concentrating Judgement: Fair Diagnostics Vital Signs (24Hr): Vital Signs - 24 hr 03/31/21 21:30 03/31/21 21:39 04/01/21 06:00 Temperature 97.3 F 97.6 F Pulse Rate 84 84 83 Respiratory Rate 17 Blood Pressure 117/82 117/82 131/79 Pulse Oximetry 98 98 BMI result Body Mass Index 33.8 Labs Results: 03/16/21 07:51 03/16/21 07:51 Imaging Radiology Impressions: ITS Impressions Chest X-Ray 03/15/21 19:02 IMPRESSION: Unremarkable examination. Medications Medications Current Medications Acetaminophen (Acetaminophen 325 Mg Tablet) 650 mg PO Q6H PRN PRN Reason: Headache/Pain Mild Scale (1-3) Last Admin: 03/25/21 17:50 Dose: 650 mg Documented by: Al Hydroxide/Mg Hydroxide (Magnesium Hydrox/Alum Hydrox 30 Ml Oral.Susp) 30 ml PO Q6H PRN PRN Reason: Heartburn/Nausea Last Admin: 03/18/21 19:27 Dose: 30 ml Documented by: Amoxicillin/Clavulanate Potassium (Amoxicillin/Potassium Clav 500 Mg Tablet) 500 mg PO Q12H [facility] Last Admin: 04/01/21 15:21 Dose: 500 mg Documented by: Aripiprazole (Aripiprazole 20 Mg Tablet) 20 mg PO DAILY [facility] Last Admin: 04/01/21 15:21 Dose: 20 mg Documented by: Bacitracin (Bacitracin Oint 14 Gm Tube) 1 appl TOPICAL BID [facility]; Protocol Last Admin: 04/01/21 15:22 Dose: Not Given Documented by: Benzocaine (Throat Lozenge, Medicated Lozenge) 1 lozenge MUCOUS MEM Q2H PRN PRN Reason: Sore Throat Last Admin: 03/26/21 14:55 Dose: 1 lozenge Documented by: Benztropine Mesylate (Benztropine Mesylate 1 Mg Tablet) 1 mg PO BID [facility] Last Admin: 04/01/21 15:21 Dose: 1 mg Documented by: Calcium Carbonate (Calcium Carbonate 500 Mg Tablet) 500 mg PO TID PRN PRN Reason: heartburn Last Admin: 04/01/21 15:21 Dose: 500 mg Documented by: Doxazosin Mesylate (Doxazosin Mesylate 2 Mg Tablet) 4 mg PO BEDTIME [facility]; Protocol Last Admin: 03/31/21 21:39 Dose: 4 mg Documented by: Hydroxyzine HCl (Hydroxyzine Hcl 50 Mg Tablet) 50 mg PO Q6H PRN PRN Reason: Anxiety Last Admin: 03/30/21 20:46 Dose: 50 mg Documented by: Ibuprofen (Ibuprofen 400 Mg Tablet) 400 mg PO Q8H PRN PRN Reason: mild-mod pain Last Admin: 03/22/21 18:05 Dose: 400 mg Documented by: Magnesium Hydroxide (Milk Of Magnesia 30 Ml Oral.Susp) 30 ml PO DAILY PRN PRN Reason: Constipation Multi-Ingred Medicated Throat [place] (Throat [place], Medicated 20 Ml Bottle) 1 spray MUCOUS MEM Q2H PRN PRN Reason: discomfort Omeprazole (Omeprazole 20 Mg Capsule.Dr) 20 mg PO DAILY@0630 [facility] Last Admin: 04/01/21 06:22 Dose: 20 mg Documented by: Ondansetron HCl (Ondansetron Odt 4 Mg Tab.Rapdis) 4 mg TRANSLINGU Q8H PRN PRN Reason: nausea Last Admin: 03/23/21 16:23 Dose: 4 mg Documented by: Quetiapine Fumarate (Quetiapine Fumarate 100 Mg Tablet) 100 mg PO TID [facility] Last Admin: 04/01/21 15:22 Dose: 100 mg Documented by: Quetiapine Fumarate (Quetiapine Fumarate 50 Mg Tablet) 50 mg PO Q6H PRN PRN Reason: agitation Risperidone (Risperidone 0.25 Mg Tablet) 0.25 mg PO Q4H PRN PRN Reason: assistance with grounding Last Admin: 03/24/21 18:59 Dose: 0.25 mg Documented by: Trazodone HCl (Trazodone Hcl 100 Mg Tablet) 100 mg PO BEDTIME PRN PRN Reason: Insomnia Last Admin: 03/31/21 01:19 Dose: 100 mg Documented by: Venlafaxine HCl (Venlafaxine Hcl Er 37.5 Mg Cap.Er.24h) 187.5 mg PO DAILY [facility] Last Admin: 04/01/21 15:21 Dose: 187.5 mg Documented by: Zinc Acetate/Diphenhydramine (Diphenhydramine Hcl 2 % Cream 28 Gm Tube) 1 appl TOPICAL BID PRN PRN Reason: Itching Allergies Allergies Allergy/AdvReac Type Severity Reaction Status Date / Time coconut Allergy Severe Anaphylaxis Verified 03/14/21 22:10 nut - unspecified [NUTS] Allergy Severe HIVES, Verified 03/14/21 23:05 DIFF BREATHING, THROAT SWELLS peanut Allergy Severe Anaphylaxis Verified 03/14/21 22:10 Assessment & Plan Assessment & Plan (1) TREY (generalized anxiety disorder): Status: Acute Code(s): F41.1 - Generalized anxiety disorder (2) MDD (major depressive disorder), recurrent severe, without psychosis: Status: Acute Code(s): F33.2 - Major depressive disorder, recurrent severe without psychotic features Assessment and Plan: 35 y.o. Who carries a dx of PTSD, MDD recurrent, TREY. She is a lateral transfer from [facility], admitted on 02/18/21 for depression, anxiety, and SI. Recent perceptual disturbances of 's image and voice, he from suicide 2 yr ago. Plan: Pt is here for ECT. Med reconciliation done. Pt reports she is supposed to be on doxazosin 4 mg at bedtime and 2 mg QD (this was her dose of prazosin and it was switched to doxazosin at [facility], however discharge listed doxazosin as 1 mg QHS). Will increase doxazosin to 2 mg QHS and defer to primary team for adjustments. Pt reports she is still on trileptal 300 mg BID but this was not on [facility] discharge. Pt also reports benefit on ativan 0.5 mg BID PRN for agitation, anxiety- will re-start, as this helps when pt has urges to self harm in context of anxiety and agitation. Monitor response to medications. Monitor for safety in the milieu. Discharge on stabilization. Patient seen. Chart reviewed. Discussed with team. Obtain collateral contact info?as needed 03/15/21: Increase Doxazosin to 4 mg HS. Monitor for SE. Pt asks to have 2 mg return to daytime dosing-will titrate gradually. Risperdal 0.25 mg bid prn grounding assist to manage SIBS. Medical clearance for ECT ordered-hospitalist, Chest xray, EKG, CMP, CBC Pt will move closer to nursing station as she has been struggling with her safety and working on a plan of care with team to remain safe while keeping as much of her own control as possible. Weekend Coverage: 03/16- Pt continues to endorse urges for self harm and had incident of superficial cutting this morning, told bell staff after the event and had it dressed. Reminded pt that she has PRN riserpdal ordered and pt is willing to utilize. Will monitor for benefit. 03/17-Pt discloses urges and plan to cut herself with a staple, had this in possession and was able to give this up. Also disclosed command AH. Reports positive benefit on PRN risperdal, will increase to Q4H PRN. Encouraged coping skills. NPO orders to start at midnight for ECT tomorrow. 03/18/21 ECT completed. No medication changes today. 03/19/21 Continue current regime as pt reports cheeking/saving medications since admission Tolerated ECT 03/18/21 Continue plan of care. 03/20/21 Continue current plan of care Mindfulness exercises 03/21-non ECT day. 03/21/21 Increase Venlafaxine ER to 187.5 mg daily Encourage use of Risperdal to assist with grounding Initiated use of DBT skills with targeted handouts focused on mgt of suffering. 03/22/21 Post ECT-resting/sleeping after treatment Continue current regime. 03/23/21: Ct ECT and 1:1. Tolerating ECT well. 03/24/21: Ct ECT/1:1. 03/25/21: ECT Today. Pt resting/napping most of the day. Team report no active self-harm throughout the weekend, just thoughts however pt reports no improvement. Continue current plan. 03/26/21: Pt reports some improvement with ongoing thoughts of self-harm and SIBS for relief of sx. 03/27/21: Positive strep culture-Augmentin initiated by Dr. Sen during ECT Pt appears brighter-did attend group. Continue current plan of care. 03/28/21: Positive COVID screen Appears brighter. ECT will be on hold for 10 days Pt believes she will need to remain in hospital during this time due to safety concerns. Message left for pt's father Ray Moreno [phone]. 03/29/21 Pt reporting some improvement in symptoms Continue current plan of care ECT 04/01. 03/30/21 Continue current plan. 03/31/21 Continue current plan. When off isolation,consider change to 5 minute checks. 04/01/21 Continue current plan. I spent minutes with the patient and/or on the patient floor today, greater than?50% of which was spent counseling/coordinating care. Patient educated on: therapeutic strategies Informed Consent: understands Reason for contiued inpatient stay Substantial Risk for: harm to self, inability to function and rapid decompensation
[2021-04-01 20:45] VITALS: BP 134/79; PULSE 83; TEMP 36.3; O2SAT 99
[2021-04-01 20:47] VITALS: BP 118/69; PULSE 94
[2021-04-01] MEDS: Doxazosin Mesylate 2 MG TABLET 4 MG PO (20:47)
[2021-04-01] MEDS: traZODone HCL 100 MG TABLET PO (20:47)
[2021-04-02 06:00] VITALS: BP 126/82; PULSE 78; RESP 16; TEMP 36.1; O2SAT 99
[2021-04-02] MEDS: Omeprazole 20 MG CAPSULE.DR PO (06:25)
[2021-04-02] MEDS: ARIPiprazole 20 MG TABLET PO (09:12)
[2021-04-02] MEDS: Venlafaxine HCl ER 37.5 MG CAP.ER.24H 187.5 MG PO (09:12)
[2021-04-02] MEDS: Amoxicillin/Potassium Clav 500 MG TABLET PO ×2 (09:13→21:41)
[2021-04-02] MEDS: QUEtiapine Fumarate 100 MG TABLET PO ×3 (09:13→21:41)
[2021-04-02] MEDS: Benztropine Mesylate 1 MG TABLET PO ×2 (09:13→21:41)
--- NOTE | 2021-04-02 17:42 | HO.PSYCHPN ---
Subjective Subjective Date of Service: 04/02/21 Reason For Visit: Major Depressive Disorder Subjective Notes: Conditional Voluntary Interim History: Pt remains on one to one, isolation precautions for COVID, strep. Reports no physical symptoms. Reports some mood improvement, denies SI, discussed discharge-wanting to be home for Rea with her family. Believes she is safe to go home. Plans ECT for 04/03. Tentative discharge for 04/04. Discussed medications-believes she is taking the right combination. Does report sleep latency symptoms. Will changed Trazodone from PRN to scheduled. Medication Compliance: Yes Side effects from medications: No Review of Systems Acute medical concerns: No Medical Review of Systems: unchanged Review of Systems Psychiatric: Reports abnormal sleep pattern (latency symptoms), Reports depression, Reports suicidal ideation (denies) and Reports other (SIBS) Mental Status Exam Mental Status Exam Patient Appearance: Fatigued Patient Orientation: Person, Place, Time and Situation Level of Consciousness: Awake Patient Behavior: Talkative and Good Eye Contact Mood Description: Flat Affect Description: Flat Patient Cognition Impaired: No Ability to Follow Directions: Good Speech Pattern: Spontaneous Speech Memory Description: Remote Impaired and Episodic Impaired Hallucinations: None Delusions: Not Present Thought Process: Distracted Thought Content: positive for Bryant and positive for Circumstantial Depressive Symptoms: Difficulty Sleeping and Difficulty Concentrating Judgement: Fair Diagnostics Vital Signs (24Hr): Vital Signs - 24 hr 04/01/21 20:45 04/01/21 20:47 04/02/21 06:00 Temperature 97.4 F 97.0 F Pulse Rate 83 94 78 Respiratory Rate 16 Blood Pressure 134/79 118/69 126/82 Pulse Oximetry 99 99 BMI result Body Mass Index 33.8 Labs Results: 03/16/21 07:51 03/16/21 07:51 Imaging Radiology Impressions: ITS Impressions Chest X-Ray 03/15/21 19:02 IMPRESSION: Unremarkable examination. Medications Medications Current Medications Acetaminophen (Acetaminophen 325 Mg Tablet) 650 mg PO Q6H PRN PRN Reason: Headache/Pain Mild Scale (1-3) Last Admin: 03/25/21 17:50 Dose: 650 mg Documented by: Al Hydroxide/Mg Hydroxide (Magnesium Hydrox/Alum Hydrox 30 Ml Oral.Susp) 30 ml PO Q6H PRN PRN Reason: Heartburn/Nausea Last Admin: 03/18/21 19:27 Dose: 30 ml Documented by: Amoxicillin/Clavulanate Potassium (Amoxicillin/Potassium Clav 500 Mg Tablet) 500 mg PO Q12H [facility] Last Admin: 04/02/21 09:13 Dose: 500 mg Documented by: Aripiprazole (Aripiprazole 20 Mg Tablet) 20 mg PO DAILY [facility] Last Admin: 04/02/21 09:12 Dose: 20 mg Documented by: Bacitracin (Bacitracin Oint 14 Gm Tube) 1 appl TOPICAL BID [facility]; Protocol Last Admin: 04/02/21 10:10 Dose: Not Given Documented by: Benzocaine (Throat Lozenge, Medicated Lozenge) 1 lozenge MUCOUS MEM Q2H PRN PRN Reason: Sore Throat Last Admin: 03/26/21 14:55 Dose: 1 lozenge Documented by: Benztropine Mesylate (Benztropine Mesylate 1 Mg Tablet) 1 mg PO BID [facility] Last Admin: 04/02/21 09:13 Dose: 1 mg Documented by: Calcium Carbonate (Calcium Carbonate 500 Mg Tablet) 500 mg PO TID PRN PRN Reason: heartburn Last Admin: 04/01/21 15:21 Dose: 500 mg Documented by: Doxazosin Mesylate (Doxazosin Mesylate 2 Mg Tablet) 4 mg PO BEDTIME [facility]; Protocol Last Admin: 04/01/21 20:47 Dose: 4 mg Documented by: Hydroxyzine HCl (Hydroxyzine Hcl 50 Mg Tablet) 50 mg PO Q6H PRN PRN Reason: Anxiety Last Admin: 03/30/21 20:46 Dose: 50 mg Documented by: Ibuprofen (Ibuprofen 400 Mg Tablet) 400 mg PO Q8H PRN PRN Reason: mild-mod pain Last Admin: 03/22/21 18:05 Dose: 400 mg Documented by: Magnesium Hydroxide (Milk Of Magnesia 30 Ml Oral.Susp) 30 ml PO DAILY PRN PRN Reason: Constipation Multi-Ingred Medicated Throat [place] (Throat [place], Medicated 20 Ml Bottle) 1 spray MUCOUS MEM Q2H PRN PRN Reason: discomfort Omeprazole (Omeprazole 20 Mg Capsule.Dr) 20 mg PO DAILY@0630 [facility] Last Admin: 04/02/21 06:25 Dose: 20 mg Documented by: Ondansetron HCl (Ondansetron Odt 4 Mg Tab.Rapdis) 4 mg TRANSLINGU Q8H PRN PRN Reason: nausea Last Admin: 03/23/21 16:23 Dose: 4 mg Documented by: Quetiapine Fumarate (Quetiapine Fumarate 100 Mg Tablet) 100 mg PO TID [facility] Last Admin: 04/02/21 14:53 Dose: 100 mg Documented by: Quetiapine Fumarate (Quetiapine Fumarate 50 Mg Tablet) 50 mg PO Q6H PRN PRN Reason: agitation Risperidone (Risperidone 0.25 Mg Tablet) 0.25 mg PO Q4H PRN PRN Reason: assistance with grounding Last Admin: 03/24/21 18:59 Dose: 0.25 mg Documented by: Trazodone HCl (Trazodone Hcl 100 Mg Tablet) 100 mg PO BEDTIME PRN PRN Reason: Insomnia Last Admin: 04/01/21 20:47 Dose: 100 mg Documented by: Venlafaxine HCl (Venlafaxine Hcl Er 37.5 Mg Cap.Er.24h) 187.5 mg PO DAILY [facility] Last Admin: 04/02/21 09:12 Dose: 187.5 mg Documented by: Zinc Acetate/Diphenhydramine (Diphenhydramine Hcl 2 % Cream 28 Gm Tube) 1 appl TOPICAL BID PRN PRN Reason: Itching Allergies Allergies Allergy/AdvReac Type Severity Reaction Status Date / Time coconut Allergy Severe Anaphylaxis Verified 03/14/21 22:10 nut - unspecified [NUTS] Allergy Severe HIVES, Verified 03/14/21 23:05 DIFF BREATHING, THROAT SWELLS peanut Allergy Severe Anaphylaxis Verified 03/14/21 22:10 Assessment & Plan Assessment & Plan (1) TREY (generalized anxiety disorder): Status: Acute Code(s): F41.1 - Generalized anxiety disorder (2) MDD (major depressive disorder), recurrent severe, without psychosis: Status: Acute Code(s): F33.2 - Major depressive disorder, recurrent severe without psychotic features Assessment and Plan: 35 y.o. Who carries a dx of PTSD, MDD recurrent, TREY. She is a lateral transfer from [facility], admitted on 02/18/21 for depression, anxiety, and SI. Recent perceptual disturbances of 's image and voice, he from suicide 2 yr ago. Plan: Pt is here for ECT. Med reconciliation done. Pt reports she is supposed to be on doxazosin 4 mg at bedtime and 2 mg QD (this was her dose of prazosin and it was switched to doxazosin at [facility], however discharge listed doxazosin as 1 mg QHS). Will increase doxazosin to 2 mg QHS and defer to primary team for adjustments. Pt reports she is still on trileptal 300 mg BID but this was not on [facility] discharge. Pt also reports benefit on ativan 0.5 mg BID PRN for agitation, anxiety- will re-start, as this helps when pt has urges to self harm in context of anxiety and agitation. Monitor response to medications. Monitor for safety in the milieu. Discharge on stabilization. Patient seen. Chart reviewed. Discussed with team. Obtain collateral contact info?as needed 03/15/21: Increase Doxazosin to 4 mg HS. Monitor for SE. Pt asks to have 2 mg return to daytime dosing-will titrate gradually. Risperdal 0.25 mg bid prn grounding assist to manage SIBS. Medical clearance for ECT ordered-hospitalist, Chest xray, EKG, CMP, CBC Pt will move closer to nursing station as she has been struggling with her safety and working on a plan of care with team to remain safe while keeping as much of her own control as possible. Weekend Coverage: 03/16- Pt continues to endorse urges for self harm and had incident of superficial cutting this morning, told bell staff after the event and had it dressed. Reminded pt that she has PRN riserpdal ordered and pt is willing to utilize. Will monitor for benefit. 03/17-Pt discloses urges and plan to cut herself with a staple, had this in possession and was able to give this up. Also disclosed command AH. Reports positive benefit on PRN risperdal, will increase to Q4H PRN. Encouraged coping skills. NPO orders to start at midnight for ECT tomorrow. 03/18/21 ECT completed. No medication changes today. 03/19/21 Continue current regime as pt reports cheeking/saving medications since admission Tolerated ECT 03/18/21 Continue plan of care. 03/20/21 Continue current plan of care Mindfulness exercises 03/21-non ECT day. 03/21/21 Increase Venlafaxine ER to 187.5 mg daily Encourage use of Risperdal to assist with grounding Initiated use of DBT skills with targeted handouts focused on mgt of suffering. 03/22/21 Post ECT-resting/sleeping after treatment Continue current regime. 03/23/21: Ct ECT and 1:1. Tolerating ECT well. 03/24/21: Ct ECT/1:1. 03/25/21: ECT Today. Pt resting/napping most of the day. Team report no active self-harm throughout the weekend, just thoughts however pt reports no improvement. Continue current plan. 03/26/21: Pt reports some improvement with ongoing thoughts of self-harm and SIBS for relief of sx. 03/27/21: Positive strep culture-Augmentin initiated by Dr. Sen during ECT Pt appears brighter-did attend group. Continue current plan of care. 03/28/21: Positive COVID screen Appears brighter. ECT will be on hold for 10 days Pt believes she will need to remain in hospital during this time due to safety concerns. Message left for pt's father Ray Moreno [phone]. 03/29/21 Pt reporting some improvement in symptoms Continue current plan of care ECT 04/01. 03/30/21 Continue current plan. 03/31/21 Continue current plan. When off isolation,consider change to 5 minute checks. 04/01/21 Continue current plan. 04/02/21 Reports sleep latency symptoms. Will change Trazodone from PRN to scheduled. I spent minutes with the patient and/or on the patient floor today, greater than?50% of which was spent counseling/coordinating care. Patient educated on: therapeutic strategies Informed Consent: further education needed Reason for contiued inpatient stay Substantial Risk for: harm to self, inability to function and rapid decompensation
[2021-04-02 21:41] VITALS: BP 111/82; PULSE 84
[2021-04-02] MEDS: traZODone HCL 100 MG TABLET PO (21:41)
[2021-04-02] MEDS: Doxazosin Mesylate 2 MG TABLET 4 MG PO (21:41)
[2021-04-02 21:56] VITALS: BP 111/82; PULSE 84; TEMP 36.2; O2SAT 98
[2021-04-03] VITALS (10 sets, daily range): BP systolic 101–140; BP diastolic 70–86; PULSE 64–87; RESP 14–18; TEMP 36.1–36.6; O2SAT 97–99
--- NOTE | 2021-04-03 09:57 | HO.ANESPROP2 ---
FORMERLY [facility] Active Problems Active Problems: All Active Problems (Updated 03/16/21 @ 16:28 by KAYDEN Jeter) MDD (major depressive disorder), recurrent severe, without psychosis (Acute) TREY (generalized anxiety disorder) (Acute) Past Medical History Medical History TREY (generalized anxiety disorder) GERD (gastroesophageal reflux disease) HTN (hypertension) MDD (major depressive disorder), recurrent severe, without psychosis MARIA TERESA (obstructive sleep apnea) Post traumatic stress disorder (PTSD) Functional capacity: independent ambulation Family History Family History Mother Heart disease Family history of problems with anesthesia: No Surgical History Surgical History H/O gastric bypass Hx of cholecystectomy History of Problems with Anesthesia: No Social History Social History Household Members: Other Household Members Other:: 17 yo daughter Housing: Apartment Do you presently have visiting nurse or other home services: No Alcohol intake: current Alcohol intake frequency: holidays/special occasions only Patient Tobacco Use Status: Never used Tobacco Use of substances other than those prescribed or required for medical reasons: No Currently Displaying Signs/Symptoms of Drug Intoxication Withdrawal: No Have you been hit, kicked, punched, or otherwise hurt by someone within the past year? If so, by whom?: No Do you feel safe in your current relationship?: Yes Is there a partner from a previous relationship who is making you feel unsafe now?: No Are you made to feel afraid or neglected: No Are you DNR?: No Advance Directives: No Advance Directives Information Provided: No Advance Directives on File: No Do you have thoughts of harming others: None Do you have a plan to hurt others: No Plan Recently lost weight without trying: No Eating poorly because of decreased appetite: No Nutrition Risks: No Nutritional Risk Patient : No : No Poor oral hygiene: No service: No Sexual orientation: Did not discuss Meds Allergies Allergy/AdvReac Type Severity Reaction Status Date / Time coconut Allergy Severe Anaphylaxis Verified 03/14/21 22:10 nut - unspecified [NUTS] Allergy Severe HIVES, Verified 03/14/21 23:05 DIFF BREATHING, THROAT SWELLS peanut Allergy Severe Anaphylaxis Verified 03/14/21 22:10 Active Medications: Current Medications Acetaminophen (Acetaminophen 325 Mg Tablet) 650 mg PO Q6H PRN PRN Reason: Headache/Pain Mild Scale (1-3) Last Admin: 03/25/21 17:50 Dose: 650 mg Documented by: Al Hydroxide/Mg Hydroxide (Magnesium Hydrox/Alum Hydrox 30 Ml Oral.Susp) 30 ml PO Q6H PRN PRN Reason: Heartburn/Nausea Last Admin: 03/18/21 19:27 Dose: 30 ml Documented by: Amoxicillin/Clavulanate Potassium (Amoxicillin/Potassium Clav 500 Mg Tablet) 500 mg PO Q12H [facility] Last Admin: 04/02/21 21:41 Dose: 500 mg Documented by: Aripiprazole (Aripiprazole 20 Mg Tablet) 20 mg PO DAILY [facility] Last Admin: 04/02/21 09:12 Dose: 20 mg Documented by: Bacitracin (Bacitracin Oint 14 Gm Tube) 1 appl TOPICAL BID [facility]; Protocol Last Admin: 04/02/21 22:00 Dose: Not Given Documented by: Benzocaine (Throat Lozenge, Medicated Lozenge) 1 lozenge MUCOUS MEM Q2H PRN PRN Reason: Sore Throat Last Admin: 03/26/21 14:55 Dose: 1 lozenge Documented by: Benztropine Mesylate (Benztropine Mesylate 1 Mg Tablet) 1 mg PO BID [facility] Last Admin: 04/02/21 21:41 Dose: 1 mg Documented by: Calcium Carbonate (Calcium Carbonate 500 Mg Tablet) 500 mg PO TID PRN PRN Reason: heartburn Last Admin: 04/01/21 15:21 Dose: 500 mg Documented by: Doxazosin Mesylate (Doxazosin Mesylate 2 Mg Tablet) 4 mg PO BEDTIME [facility]; Protocol Last Admin: 04/02/21 21:41 Dose: 4 mg Documented by: Hydroxyzine HCl (Hydroxyzine Hcl 50 Mg Tablet) 50 mg PO Q6H PRN PRN Reason: Anxiety Last Admin: 03/30/21 20:46 Dose: 50 mg Documented by: Ibuprofen (Ibuprofen 400 Mg Tablet) 400 mg PO Q8H PRN PRN Reason: mild-mod pain Last Admin: 03/22/21 18:05 Dose: 400 mg Documented by: Magnesium Hydroxide (Milk Of Magnesia 30 Ml Oral.Susp) 30 ml PO DAILY PRN PRN Reason: Constipation Multi-Ingred Medicated Throat [place] (Throat [place], Medicated 20 Ml Bottle) 1 spray MUCOUS MEM Q2H PRN PRN Reason: discomfort Omeprazole (Omeprazole 20 Mg Capsule.Dr) 20 mg PO DAILY@0630 [facility] Last Admin: 04/02/21 06:25 Dose: 20 mg Documented by: Ondansetron HCl (Ondansetron Odt 4 Mg Tab.Rapdis) 4 mg TRANSLINGU Q8H PRN PRN Reason: nausea Last Admin: 03/23/21 16:23 Dose: 4 mg Documented by: Quetiapine Fumarate (Quetiapine Fumarate 100 Mg Tablet) 100 mg PO TID [facility] Last Admin: 04/02/21 21:41 Dose: 100 mg Documented by: Quetiapine Fumarate (Quetiapine Fumarate 50 Mg Tablet) 50 mg PO Q6H PRN PRN Reason: agitation Risperidone (Risperidone 0.25 Mg Tablet) 0.25 mg PO Q4H PRN PRN Reason: assistance with grounding Last Admin: 03/24/21 18:59 Dose: 0.25 mg Documented by: Trazodone HCl (Trazodone Hcl 100 Mg Tablet) 100 mg PO BEDTIME [facility] Last Admin: 04/02/21 21:41 Dose: 100 mg Documented by: Venlafaxine HCl (Venlafaxine Hcl Er 37.5 Mg Cap.Er.24h) 187.5 mg PO DAILY [facility] Last Admin: 04/02/21 09:12 Dose: 187.5 mg Documented by: Zinc Acetate/Diphenhydramine (Diphenhydramine Hcl 2 % Cream 28 Gm Tube) 1 appl TOPICAL BID PRN PRN Reason: Itching Home Medications Medication Instructions Recorded Confirmed Last Taken Type trazodone 100 mg PO BEDTIME 03/15/21 03/15/21 Unknown History Exam Exam Date and Time: April 03, 2021 0957 Height,Weight and Vital Signs: Height 5 ft 2 in Weight 83.915 kg Last Vital Signs Temp 97.1 F 04/02/21 21:56 Pulse 84 04/02/21 21:56 Resp 16 04/02/21 06:00 BP 111/82 04/02/21 21:56 Pulse Ox 98 04/02/21 21:56 Pertinent Lab Results Pertinent Lab Results: Laboratory Tests 03/15/21 03/15/21 03/15/21 07:48 07:48 07:48 WBC RBC Hgb Hct MCV MCH MCHC RDW Plt Count MPV Immature Gran % (Auto) Neut % (Auto) Lymph % (Auto) Me[place] % (Auto) Eos % (Auto) Baso % (Auto) Lymph # (Auto) [place] # (Auto) Eos # (Auto) Baso # (Auto) Abs Immat Gran (auto) Absolute Neuts (auto) Absolute Nucleated RBC Nucleated RBC % (auto) Sodium Potassium Chloride Carbon Dioxide Anion Gap BUN Creatinine Estim Creat Clear Calc Estimated GFR Random Glucose Estimat Average Glucose 82 Hemoglobin A1c % 4.5 Calcium Magnesium 2.0 Total Bilirubin 0.5 Direct Bilirubin 0.2 AST 27 ALT 28 Alkaline Phosphatase 81 Total Protein 6.4 L Albumin 3.9 Triglycerides 186 Cholesterol 196 LDL Cholesterol, Calc 95 HDL Cholesterol 64 Vitamin B12 342 Folate 12.3 TSH 1.14 Free T4 0.66 L COVID-19 ([facility]) COVID-19 Clin Com S. pyogenes GrpA TRESSA 03/16/21 03/16/21 03/26/21 07:51 07:51 17:49 WBC 6.9 RBC 4.87 Hgb 14.8 Hct 45.8 MCV 94.0 MCH 30.4 MCHC 32.3 RDW 13.2 Plt Count 297 MPV 10.6 Immature Gran % (Auto) 0.1 Neut % (Auto) 49.0 Lymph % (Auto) 37.8 [place] % (Auto) 8.9 Eos % (Auto) 3.5 Baso % (Auto) 0.7 Lymph # (Auto) 2.6 [place] # (Auto) 0.6 Eos # (Auto) 0.2 Baso # (Auto) 0.1 Abs Immat Gran (auto) 0.01 Absolute Neuts (auto) 3.4 Absolute Nucleated RBC 0.000 Nucleated RBC % (auto) 0.0 Sodium 144 Potassium 4.0 Chloride 106 Carbon Dioxide 29 Anion Gap 13 BUN 7 L Creatinine 0.82 Estim Creat Clear Calc TNP Estimated GFR > 60 Random Glucose 85 Estimat Average Glucose Hemoglobin A1c % Calcium 9.7 Magnesium Total Bilirubin 0.4 Direct Bilirubin AST 25 ALT 25 Alkaline Phosphatase 79 Total Protein 6.7 Albumin 4.0 Triglycerides Cholesterol LDL Cholesterol, Calc HDL Cholesterol Vitamin B12 Folate TSH Free T4 COVID-19 (JE[facility]) COVID-19 Clin Com S. pyogenes GrpA TRESSA Positive A 03/27/21 18:58 WBC RBC Hgb Hct MCV MCH MCHC RDW Plt Count MPV Immature Gran % (Auto) Neut % (Auto) Lymph % (Auto) [place] % (Auto) Eos % (Auto) Baso % (Auto) Lymph # (Auto) [place] # (Auto) Eos # (Auto) Baso # (Auto) Abs Immat Gran (auto) Absolute Neuts (auto) Absolute Nucleated RBC Nucleated RBC % (auto) Sodium Potassium Chloride Carbon Dioxide Anion Gap BUN Creatinine Estim Creat Clear Calc Estimated GFR Random Glucose Estimat Average Glucose Hemoglobin A1c % Calcium Magnesium Total Bilirubin Direct Bilirubin AST ALT Alkaline Phosphatase Total Protein Albumin Triglycerides Cholesterol LDL Cholesterol, Calc HDL Cholesterol Vitamin B12 Folate TSH Free T4 COVID-19 (JEFF) Positive A COVID-19 Clin Com See Note S. pyogenes GrpA TRESSA Airway Mallampati Class: II TM Dist: >3cm Neck ROM: Full Heart: rrr Lungs: cta Assessment and Plan Assessment Anesthesia Assessment: Anesthesia Plan Discussed and Chart Reviewed Final Anesthetic Review Family History of Problems with Anesthesia: No History of Problems with Anesthesia: No NPO: Yes ASA Class: III Final Preanesthetic Review: No Changes in Pt Med Stat, Meds/Allgs Chart Reviewed and Consent Obtained/Reviewed Patient Risk: Intermediate Procedure Risk: Intermediate Anesthetic Plan Anesthetic Plan: GA Disposition: Standard PACU
[2021-04-03] MEDS: Venlafaxine HCl ER 37.5 MG CAP.ER.24H 187.5 MG PO (11:18)
[2021-04-03] MEDS: Amoxicillin/Potassium Clav 500 MG TABLET PO ×2 (11:18→21:49)
[2021-04-03] MEDS: QUEtiapine Fumarate 100 MG TABLET PO ×3 (11:18→21:49)
[2021-04-03] MEDS: Benztropine Mesylate 1 MG TABLET PO ×2 (11:18→21:49)
[2021-04-03] MEDS: ARIPiprazole 20 MG TABLET PO (11:19)
[2021-04-03] MEDS: Omeprazole 20 MG CAPSULE.DR PO (11:20)
--- NOTE | 2021-04-03 17:36 | HO.PSYCHPN ---
Subjective Subjective Date of Service: 04/03/21 Reason For Visit: Major Depressive Disorder Subjective Notes: Conditional Voluntary Healthcare Proxy: No Guardianship: No Medical Problems Affecting Mental Status: No Interim History: Angelica reports she tolerated ECT well and is feeling OK. She denies medical symptoms-denies cough, sore throat, chills, URI sx. State she believes these have passed. She does report memory loss with ECT-short term-did not recall her discussion with her father on 04/02, asked tw my name again and did not know tw role in her care. She would like to go home for [place]-she denies SI, she denies thoughts about SIBS, however she is hesitant. The plan would be to spend [place] with sister and spend the night at her father's home. She has not thought about after this. I want to be home for [place]. Reports sleep and appetite are intact. Medication Compliance: Yes Side effects from medications: No Attending Groups: No Review of Systems Acute medical concerns: No Medical Review of Systems: unchanged Review of Systems Reports confusion and Reports memory loss Psychiatric: Reports anxiety, Reports confusion, Reports difficulty concentrating, Reports memory loss and Reports suicidal ideation (denies active plan/intent) Mental Status Exam Mental Status Exam Patient Appearance: Fatigued and Appropriate Patient Orientation: Person, Place, Time and Situation Level of Consciousness: Awake Patient Behavior: Talkative and Good Eye Contact Mood Description: Constricted and Flat Affect Description: Constricted and Flat Patient Cognition Impaired: Yes Ability to Follow Directions: Good Speech Pattern: Spontaneous Speech and Soft-Spoken Memory Description: Remote Impaired and Episodic Impaired Hallucinations: None Delusions: Not Present Thought Process: Distracted Thought Content: positive for [place] and positive for Circumstantial Depressive Symptoms: Difficulty Concentrating Judgement: Fair Diagnostics Vital Signs (24Hr): Vital Signs - 24 hr 04/02/21 21:41 04/02/21 21:56 04/03/21 06:00 Temperature 97.1 F Pulse Rate 84 84 64 Respiratory Rate 16 Blood Pressure 111/82 111/82 118/74 Pulse Oximetry 98 04/03/21 10:21 04/03/21 10:25 04/03/21 10:30 Temperature 98 F Pulse Rate 70 78 86 Respiratory Rate 16 16 16 Blood Pressure 140/77 H 133/78 130/86 Pulse Oximetry 98 99 98 04/03/21 10:37 04/03/21 10:39 04/03/21 11:48 Temperature 986 F H Pulse Rate 87 80 64 Respiratory Rate 16 18 16 Blood Pressure 135/86 130/76 118/74 Pulse Oximetry 97 98 04/03/21 11:49 Temperature Pulse Rate 76 Respiratory Rate 14 Blood Pressure 120/70 Pulse Oximetry BMI result Body Mass Index 33.8 Labs Results: 03/16/21 07:51 03/16/21 07:51 Imaging Radiology Impressions: ITS Impressions Chest X-Ray 03/15/21 19:02 IMPRESSION: Unremarkable examination. Medications Medications Current Medications Acetaminophen (Acetaminophen 325 Mg Tablet) 650 mg PO Q6H PRN PRN Reason: Headache/Pain Mild Scale (1-3) Last Admin: 03/25/21 17:50 Dose: 650 mg Documented by: Al Hydroxide/Mg Hydroxide (Magnesium Hydrox/Alum Hydrox 30 Ml Oral.Susp) 30 ml PO Q6H PRN PRN Reason: Heartburn/Nausea Last Admin: 03/18/21 19:27 Dose: 30 ml Documented by: Amoxicillin/Clavulanate Potassium (Amoxicillin/Potassium Clav 500 Mg Tablet) 500 mg PO Q12H [facility] Last Admin: 04/03/21 11:18 Dose: 500 mg Documented by: Aripiprazole (Aripiprazole 20 Mg Tablet) 20 mg PO DAILY [facility] Last Admin: 04/03/21 11:19 Dose: 20 mg Documented by: Bacitracin (Bacitracin Oint 14 Gm Tube) 1 appl TOPICAL BID [facility]; Protocol Last Admin: 04/03/21 11:19 Dose: Not Given Documented by: Benzocaine (Throat Lozenge, Medicated Lozenge) 1 lozenge MUCOUS MEM Q2H PRN PRN Reason: Sore Throat Last Admin: 03/26/21 14:55 Dose: 1 lozenge Documented by: Benztropine Mesylate (Benztropine Mesylate 1 Mg Tablet) 1 mg PO BID [facility] Last Admin: 04/03/21 11:18 Dose: 1 mg Documented by: Calcium Carbonate (Calcium Carbonate 500 Mg Tablet) 500 mg PO TID PRN PRN Reason: heartburn Last Admin: 04/01/21 15:21 Dose: 500 mg Documented by: Doxazosin Mesylate (Doxazosin Mesylate 2 Mg Tablet) 4 mg PO BEDTIME [facility]; Protocol Last Admin: 04/02/21 21:41 Dose: 4 mg Documented by: Hydroxyzine HCl (Hydroxyzine Hcl 50 Mg Tablet) 50 mg PO Q6H PRN PRN Reason: Anxiety Last Admin: 03/30/21 20:46 Dose: 50 mg Documented by: Lactated Ringer's (Lr) 1,000 mls @ 50 mls/hr IVCONT .Q20H [facility] Last Admin: 04/03/21 11:23 Dose: Not Given Documented by: Ibuprofen (Ibuprofen 400 Mg Tablet) 400 mg PO Q8H PRN PRN Reason: mild-mod pain Last Admin: 03/22/21 18:05 Dose: 400 mg Documented by: Magnesium Hydroxide (Milk Of [place]esia 30 Ml Oral.Susp) 30 ml PO DAILY PRN PRN Reason: Constipation Multi-Ingred Medicated Throat [place] (Throat [place], Medicated 20 Ml Bottle) 1 spray MUCOUS MEM Q2H PRN PRN Reason: discomfort Omeprazole (Omeprazole 20 Mg Capsule.Dr) 20 mg PO DAILY@0630 [facility] Last Admin: 04/03/21 11:20 Dose: 20 mg Documented by: Ondansetron HCl (Ondansetron Odt 4 Mg Tab.Rapdis) 4 mg TRANSLINGU Q8H PRN PRN Reason: nausea Last Admin: 03/23/21 16:23 Dose: 4 mg Documented by: Quetiapine Fumarate (Quetiapine Fumarate 100 Mg Tablet) 100 mg PO TID [facility] Last Admin: 04/03/21 15:15 Dose: 100 mg Documented by: Quetiapine Fumarate (Quetiapine Fumarate 50 Mg Tablet) 50 mg PO Q6H PRN PRN Reason: agitation Risperidone (Risperidone 0.25 Mg Tablet) 0.25 mg PO Q4H PRN PRN Reason: assistance with grounding Last Admin: 03/24/21 18:59 Dose: 0.25 mg Documented by: Trazodone HCl (Trazodone Hcl 100 Mg Tablet) 100 mg PO BEDTIME [facility] Last Admin: 04/02/21 21:41 Dose: 100 mg Documented by: Venlafaxine HCl (Venlafaxine Hcl Er 37.5 Mg Cap.Er.24h) 187.5 mg PO DAILY [facility] Last Admin: 04/03/21 11:18 Dose: 187.5 mg Documented by: Zinc Acetate/Diphenhydramine (Diphenhydramine Hcl 2 % Cream 28 Gm Tube) 1 appl TOPICAL BID PRN PRN Reason: Itching Allergies Allergies Allergy/AdvReac Type Severity Reaction Status Date / Time coconut Allergy Severe Anaphylaxis Verified 03/14/21 22:10 nut - unspecified [NUTS] Allergy Severe HIVES, Verified 03/14/21 23:05 DIFF BREATHING, THROAT SWELLS peanut Allergy Severe Anaphylaxis Verified 03/14/21 22:10 Assessment & Plan Assessment & Plan (1) TREY (generalized anxiety disorder): Status: Acute Code(s): F41.1 - Generalized anxiety disorder (2) MDD (major depressive disorder), recurrent severe, without psychosis: Status: Acute Code(s): F33.2 - Major depressive disorder, recurrent severe without psychotic features Assessment and Plan: 04/03/21. Pt reporting relief of symptoms with ECT, however with memory loss. Plan: Continue ECT Tentative discharge for 04/05/21 Will order COVID testing for 04/04/21. Continue current regime. I spent 20 minutes with the patient and/or on the patient floor today, greater than?50% of which was spent counseling/coordinating care. Patient educated on: therapeutic strategies Informed Consent: understands Reason for contiued inpatient stay Substantial Risk for: harm to self, inability to function and rapid decompensation
[2021-04-03] MEDS: traZODone HCL 100 MG TABLET PO (21:49)
[2021-04-03] MEDS: Doxazosin Mesylate 2 MG TABLET 4 MG PO (22:26)
--- NOTE | 2021-04-03 22:57 | HO.ECTPROC ---
ECT Procedure Note Diagnosis/Treatment Date of Service: 04/03/21 Diagnosis: Major Depressive Disorder and Other (ptsd) Current Treatment Number: 7 Treatment: Series Interval Clinical Notes: pt with improved mood sloiwed mentation some perplexity ECT Settings Device: THYMATRON DGx Electrode Placement: Bitemporal Program/Pulse Width: 0.50 Energy Percent: 100 Seizure Duration By EEG (in seconds): 19 Medications Administration General Anesthetic: Etomidate (16) Muscle Relaxant: Succinylcholine (100) Ancillary Medications Analgesics: Torodol - Pre ECT Anti-emetics: Zofran - Pre ECT Miscillaneous Medications: Propofol Airway Management Airway Management: Bag Mask Ventilation Treatment Recommendations No Changes Recommended: No change Notes: evaluate further ect need and side effects Pt Tolerated Procedure w/o Issue: Yes
[2021-04-04 07:00] VITALS: BMI 33.6
[2021-04-04] MEDS: Omeprazole 20 MG CAPSULE.DR PO (09:09)
[2021-04-04] MEDS: Benztropine Mesylate 1 MG TABLET PO ×2 (09:09→21:13)
[2021-04-04] MEDS: QUEtiapine Fumarate 100 MG TABLET PO ×3 (09:09→21:13)
[2021-04-04] MEDS: Venlafaxine HCl ER 37.5 MG CAP.ER.24H 187.5 MG PO (09:09)
[2021-04-04] MEDS: ARIPiprazole 20 MG TABLET PO (09:09)
[2021-04-04] MEDS: Amoxicillin/Potassium Clav 500 MG TABLET PO ×2 (09:09→21:13)
[2021-04-04 10:14] LABS: COVID-19 Test Negative (Negative)
--- NOTE | 2021-04-04 14:27 | HO.PSYCHPN ---
Subjective Subjective Date of Service: 04/04/21 Reason For Visit: Major Depressive Disorder Subjective Notes: Conditional Voluntary Medical Problems Affecting Mental Status: Yes (ECT memory processing) Interim History: Patient has completed ECT series has also finished isolation. COVID negative. Patient seems most likely to be able to discharge tomorrow. Patient did have periods of slowed mentation intermittent memory dysfunction for the past 2 weeks. On the other hand much good affect mood stable no self-harming behavior seems to have responded to ECT will be staying with her father Medication Compliance: Yes Side effects from medications: No Attending Groups: No Review of Systems Review of Systems: No cough sore throat or shortness of breath Mental Status Exam Mental Status Exam Patient Appearance: Appropriate Patient Orientation: Person, Place, Time and Situation Level of Consciousness: Awake Patient Behavior: Talkative and Good Eye Contact Mood Description: Appropriate, Relaxed and Flat Affect Description: Calm, Appropriate and Constricted Patient Cognition Impaired: Yes Ability to Follow Directions: Good Speech Pattern: Spontaneous Speech and Soft-Spoken Memory Description: Episodic Impaired Hallucinations: None Delusions: Not Present Thought Process: Distracted Thought Content: positive for [place] and positive for Circumstantial Depressive Symptoms: Difficulty Concentrating Judgement: Good Judgement and Insight: Has improved mood instability denies any thoughts of self-harm not preoccupied with past Diagnostics Vital Signs (24Hr): Vital Signs - 24 hr 04/03/21 20:00 04/03/21 22:26 Temperature 97.0 F Pulse Rate 81 78 Blood Pressure 101/75 101/75 Pulse Oximetry 98 BMI result Body Mass Index 33.8 Labs Results: 03/16/21 07:51 03/16/21 07:51 Labs: Laboratory Results - last 48 hr 04/04/21 Unknown COVID-19 (JEFF) Negative COVID-19 Clin Com See Note Imaging Radiology Impressions: ITS Impressions Chest X-Ray 03/15/21 19:02 IMPRESSION: Unremarkable examination. Medications Medications Current Medications Acetaminophen (Acetaminophen 325 Mg Tablet) 650 mg PO Q6H PRN PRN Reason: Headache/Pain Mild Scale (1-3) Last Admin: 03/25/21 17:50 Dose: 650 mg Documented by: Al Hydroxide/Mg Hydroxide (Magnesium Hydrox/Alum Hydrox 30 Ml Oral.Susp) 30 ml PO Q6H PRN PRN Reason: Heartburn/Nausea Last Admin: 03/18/21 19:27 Dose: 30 ml Documented by: Amoxicillin/Clavulanate Potassium (Amoxicillin/Potassium Clav 500 Mg Tablet) 500 mg PO Q12H [facility] Last Admin: 04/04/21 09:09 Dose: 500 mg Documented by: Aripiprazole (Aripiprazole 20 Mg Tablet) 20 mg PO DAILY [facility] Last Admin: 04/04/21 09:09 Dose: 20 mg Documented by: Bacitracin (Bacitracin Oint 14 Gm Tube) 1 appl TOPICAL BID [facility]; Protocol Last Admin: 04/04/21 09:09 Dose: Not Given Documented by: Benzocaine (Throat Lozenge, Medicated Lozenge) 1 lozenge MUCOUS MEM Q2H PRN PRN Reason: Sore Throat Last Admin: 03/26/21 14:55 Dose: 1 lozenge Documented by: Benztropine Mesylate (Benztropine Mesylate 1 Mg Tablet) 1 mg PO BID [facility] Last Admin: 04/04/21 09:09 Dose: 1 mg Documented by: Calcium Carbonate (Calcium Carbonate 500 Mg Tablet) 500 mg PO TID PRN PRN Reason: heartburn Last Admin: 04/01/21 15:21 Dose: 500 mg Documented by: Doxazosin Mesylate (Doxazosin Mesylate 2 Mg Tablet) 4 mg PO BEDTIME [facility]; Protocol Last Admin: 04/03/21 22:26 Dose: 4 mg Documented by: Hydroxyzine HCl (Hydroxyzine Hcl 50 Mg Tablet) 50 mg PO Q6H PRN PRN Reason: Anxiety Last Admin: 03/30/21 20:46 Dose: 50 mg Documented by: Lactated Ringer's (Lr) 1,000 mls @ 50 mls/hr IVCONT .Q20H [facility] Last Admin: 04/04/21 06:15 Dose: Not Given Documented by: Ibuprofen (Ibuprofen 400 Mg Tablet) 400 mg PO Q8H PRN PRN Reason: mild-mod pain Last Admin: 03/22/21 18:05 Dose: 400 mg Documented by: Magnesium Hydroxide (Milk Of Magnesia 30 Ml Oral.Susp) 30 ml PO DAILY PRN PRN Reason: Constipation Multi-Ingred Medicated Throat [place] (Throat [place], Medicated 20 Ml Bottle) 1 spray MUCOUS MEM Q2H PRN PRN Reason: discomfort Omeprazole (Omeprazole 20 Mg Capsule.Dr) 20 mg PO DAILY@0630 [facility] Last Admin: 04/04/21 09:09 Dose: 20 mg Documented by: Ondansetron HCl (Ondansetron Odt 4 Mg Tab.Rapdis) 4 mg TRANSLINGU Q8H PRN PRN Reason: nausea Last Admin: 03/23/21 16:23 Dose: 4 mg Documented by: Quetiapine Fumarate (Quetiapine Fumarate 100 Mg Tablet) 100 mg PO TID [facility] Last Admin: 04/04/21 09:09 Dose: 100 mg Documented by: Quetiapine Fumarate (Quetiapine Fumarate 50 Mg Tablet) 50 mg PO Q6H PRN PRN Reason: agitation Risperidone (Risperidone 0.25 Mg Tablet) 0.25 mg PO Q4H PRN PRN Reason: assistance with grounding Last Admin: 03/24/21 18:59 Dose: 0.25 mg Documented by: Trazodone HCl (Trazodone Hcl 100 Mg Tablet) 100 mg PO BEDTIME [facility] Last Admin: 04/03/21 21:49 Dose: 100 mg Documented by: Venlafaxine HCl (Venlafaxine Hcl Er 37.5 Mg Cap.Er.24h) 187.5 mg PO DAILY [facility] Last Admin: 04/04/21 09:09 Dose: 187.5 mg Documented by: Zinc Acetate/Diphenhydramine (Diphenhydramine Hcl 2 % Cream 28 Gm Tube) 1 appl TOPICAL BID PRN PRN Reason: Itching Allergies Allergies Allergy/AdvReac Type Severity Reaction Status Date / Time coconut Allergy Severe Anaphylaxis Verified 03/14/21 22:10 nut - unspecified [NUTS] Allergy Severe HIVES, Verified 03/14/21 23:05 DIFF BREATHING, THROAT SWELLS peanut Allergy Severe Anaphylaxis Verified 03/14/21 22:10 Assessment & Plan Assessment & Plan (1) MDD (major depressive disorder), recurrent severe, without psychosis: Status: Acute Code(s): F33.2 - Major depressive disorder, recurrent severe without psychotic features Assessment and Plan: Seems stable for discharge tomorrow ECT scheduled for approximately 1 week giving he time to re-evaluate patient's cognition and memory will be staying with her father no self-harming thoughts or behavior noted patient feels she has responded well (2) TREY (generalized anxiety disorder): Status: Acute Code(s): F41.1 - Generalized anxiety disorder Assessment and Plan: 04/03/21. Pt reporting relief of symptoms with ECT, however with memory loss. Plan: Continue ECT Tentative discharge for 04/05/21 Will order COVID testing for 04/04/21. Continue current regime. I spent minutes with the patient and/or on the patient floor today, greater than?50% of which was spent counseling/coordinating care. Reason for contiued inpatient stay Substantial Risk for: rapid decompensation and med/psych decompensation
[2021-04-04 21:13] VITALS: BP 119/80; PULSE 84
[2021-04-04] MEDS: traZODone HCL 100 MG TABLET PO (21:13)
[2021-04-04] MEDS: Doxazosin Mesylate 2 MG TABLET 4 MG PO (21:13)
[2021-04-05 06:00] VITALS: BP 102/58; PULSE 78; RESP 16; TEMP 36.4; O2SAT 98
[2021-04-05] MEDS: Omeprazole 20 MG CAPSULE.DR PO (06:21)
[2021-04-05] MEDS: ARIPiprazole 20 MG TABLET PO (08:23)
[2021-04-05] MEDS: Venlafaxine HCl ER 37.5 MG CAP.ER.24H 187.5 MG PO (08:23)
[2021-04-05] MEDS: QUEtiapine Fumarate 100 MG TABLET PO (08:23)
[2021-04-05] MEDS: Amoxicillin/Potassium Clav 500 MG TABLET PO (08:23)
[2021-04-05] MEDS: Benztropine Mesylate 1 MG TABLET PO (08:23)
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
--- NOTE | 2021-04-18 12:26 | PM.EVENT ---
Event Note Date of Service: 04/18/21 Event Note: Jury Duty Request- Pt reports she is scheduled for Jury Duty on Apr 24, 2021. Badge # [id number]. Call to [place] [employer] [phone] who report that pt's service on 04/24/21 is cancelled due to the pandemic. At this time they are not in need of documentation that she will not be able to attend due to illness
== END 2021-04-05 10:10 | disposition home or self-care (01) | DRG 885 ==
PROVIDERS: Psychiatry & Neurology Psychiatry; Registered Nurse; Admitting Provider Psychiatry & Neurology Psychiatry; Visit Provider Clinical Nurse Specialist Psychiatric/Mental Health, Adult
PROC: GZB4ZZZ Other Electroconvulsive Therapy (ICD-10-PCS; CPT 90870; principal; 2021-03-18 15:40)
DX: F33.2 Major depressive disorder, recurrent severe without psychotic features (principal); U07.1 COVID-19; R45.851 Suicidal ideations; J02.0 Streptococcal pharyngitis; F43.10 Post-traumatic stress disorder, unspecified; F41.1 Generalized anxiety disorder; Z91.52 Personal history of nonsuicidal self-harm; Z79.899 Other long term (current) drug therapy
CPT/HCPCS: 36415; 71046; 80053; 80061; 80076; 82607; 82746; 83036; 83735; 84439; 84443; 85025; 87635; 87651; 90870; 92950; 93005; 99499; J0330; J1885; J2250; J2405

== ENCOUNTER 2021-04-10 06:02 | Day surgery (SDC) | payer OTHER, SELFPAY ==
[2021-04-10] VITALS (8 sets, daily range): BP systolic 115–148; BP diastolic 48–110; PULSE 58–106; RESP 16–20; TEMP 36.6–37.3; O2SAT 97–100; BMI 33.8
[2021-04-10 06:30] LABS: UPreg QC Valid YES; Urine Pregnancy NEGATIVE (NEGATIVE)
[2021-04-10 06:41] LABS: COVID-19 Test Negative (Negative)
--- NOTE | 2021-04-10 07:12 | MHC.SHP ---
Pre-Procedural Eval Section A Date of Service: 04/10/21 The patient is an INPATIENT: No Changes since office visit: Yes Cold of Flu in the past 2 weeks, Yes New Medical Problems, Yes Changes in Medication and Yes Patient answered all questions The History & Physical has been completed within 30 days and I have reviewed it.: Yes Section B Chief Complaint: Severe Depression Allergies: Allergies Allergy/AdvReac Type Severity Reaction Status Date / Time coconut Allergy Severe Anaphylaxis Verified 03/14/21 22:10 nut - unspecified [NUTS] Allergy Severe HIVES, Verified 03/14/21 23:05 DIFF BREATHING, THROAT SWELLS peanut Allergy Severe Anaphylaxis Verified 03/14/21 22:10 Plan I have reviewed the history and physical and performed a pertinent physical examination on my patient. No changes have occurred unless specified.
--- NOTE | 2021-04-10 07:13 | P.CONAN_ITS ---
HPI - Anesthesia Eval Consult details Narrative: 35 yo female patient for ECT PMFSH Active Problems Active Problems: All Active Problems (Updated 03/16/21 @ 16:28 by KAYDEN Jeter) MDD (major depressive disorder), recurrent severe, without psychosis (Acute) TREY (generalized anxiety disorder) (Acute) Past Medical History Medical History TREY (generalized anxiety disorder) GERD (gastroesophageal reflux disease) HTN (hypertension) MDD (major depressive disorder), recurrent severe, without psychosis MARIA TERESA (obstructive sleep apnea) Post traumatic stress disorder (PTSD) Family History Family History Mother Heart disease Family history of problems with anesthesia: No Surgical History Surgical History H/O gastric bypass Hx of cholecystectomy History of Problems with Anesthesia: No Social History Social History Household Members: Other Household Members Other:: 17 yo daughter Housing: Apartment Do you presently have visiting nurse or other home services: No Alcohol intake: current Alcohol intake frequency: holidays/special occasions only Patient Tobacco Use Status: Never used Tobacco Advance Directives: No Advance Directives Information Provided: Yes service: No Sexual orientation: Did not discuss Meds Allergies Allergy/AdvReac Type Severity Reaction Status Date / Time coconut Allergy Severe Anaphylaxis Verified 03/14/21 22:10 nut - unspecified [NUTS] Allergy Severe HIVES, Verified 03/14/21 23:05 DIFF BREATHING, THROAT SWELLS peanut Allergy Severe Anaphylaxis Verified 03/14/21 22:10 Active Medications: Current Medications Acetaminophen (Acetaminophen 325 Mg Tablet) 650 mg PO ONCE PRN PRN Reason: Pain, Mild (Pain Scale 1-3) Lactated Ringer's (Lr) 1,000 mls @ 100 mls/hr IVCONT .Q10H JEFFREY Ondansetron HCl (Ondansetron Hcl 4 Mg/2 Ml Vial) 4 mg IVPUSH ONCE PRN PRN Reason: Nausea and Vomiting Home Medications Medication Instructions Recorded Confirmed Last Taken Type trazodone 100 mg PO BEDTIME 03/15/21 03/15/21 Unknown History Exam Exam Date and Time: April 10, 2021 0713 Height,Weight and Vital Signs: Height 5 ft 2 in Weight 83.915 kg Last Vital Signs Temp 98 F 04/10/21 06:59 Pulse 105 H 04/10/21 06:59 Resp 20 04/10/21 06:59 BP 125/80 04/10/21 06:59 Pulse Ox 98 04/10/21 06:59 Pertinent Lab Results Pertinent Lab Results: Laboratory Tests 04/10/21 04/10/21 06:05 06:10 Urine Test NEGATIVE COVID-19 (JEFF) Negative COVID-19 Clin Com See Note Airway Mallampati Class: III TM Dist: >3cm Neck ROM: Full Loose/Missing/Broken Teeth: No Heart: RRR Lungs: CTAB. Diminished Assessment and Plan Assessment Anesthesia Assessment: Anesthesia Plan Discussed and Chart Reviewed Final Anesthetic Review Family History of Problems with Anesthesia: No History of Problems with Anesthesia: No NPO: Yes ASA Class: III Final Preanesthetic Review: No Changes in Pt Med Stat, Meds/Allgs Chart Revi ewed, Consent Obtained/Reviewed and Anes Risks/Benef Reviewed Patient Risk: Intermediate Procedure Risk: Intermediate Anesthetic Plan Anesthetic Plan: GA Disposition: Standard PACU
--- NOTE | 2021-04-10 07:16 | P.PCN_ITS ---
ECT Procedure Note Diagnosis/Treatment Date of Service: 04/10/21 Previous ECT Date: 04/03/21 Current Treatment Number: 7 Treatment: Series Interval Clinical Notes: transition to continuation pt alert feeling better abelardo ented not delerious fluid speech pt post covid neg no residual sx ECT Settings Device: THYMATRON DGx Electrode Placement: Bifrontal Program/Pulse Width: 0.50 Energy Percent: 100 Seizure Duration By EEG (in seconds): 33 Medications Administration General Anesthetic: Etomidate (16) Muscle Relaxant: Succinylcholine (100) Ancillary Medications Analgesics: Torodol - Pre ECT Anti-emetics: Zofran - Pre ECT Miscillaneous Medications: Propofol Airway Management Airway Management: Bag Mask Ventilation Treatment Recommendations No Changes Recommended: No change Notes: monitor for cognitive impairment Pt Tolerated Procedure w/o Issue: Yes
== END 2021-04-10 09:13 | disposition home or self-care (01) ==
PROVIDERS: Visit Provider Psychiatry & Neurology Psychiatry
PROC: (CPT 90870; principal; 2021-04-10 07:30)
DX: F33.2 Major depressive disorder, recurrent severe without psychotic features (principal); F43.10 Post-traumatic stress disorder, unspecified; F41.1 Generalized anxiety disorder; K21.9 Gastro-esophageal reflux disease without esophagitis; I10 Essential (primary) hypertension; Z79.899 Other long term (current) drug therapy; Z20.822 Contact with and (suspected) exposure to COVID-19
CPT/HCPCS: 36415; 81025; 87635; 90870; J0330; J1885; J2405

== ENCOUNTER 2021-04-30 15:26 | Outpatient (REF) | payer OTHER, SELFPAY ==
[2021-04-30 16:01] LABS: Binax Internal Control QC Valid; Binax Now Covid-19 Ag Negative (Negative)
== END 2021-04-30 15:27 | disposition home or self-care (01) ==
LOC: HO.LAB 15:26
PROVIDERS: Visit Provider Internal Medicine
DX: Z20.822 Contact with and (suspected) exposure to COVID-19 (principal)
CPT/HCPCS: C9803

== ENCOUNTER 2021-05-03 08:02 | Day surgery (SDC) | payer OTHER, SELFPAY ==
[2021-05-03] VITALS (8 sets, daily range): BP systolic 116–140; BP diastolic 66–90; PULSE 72–97; RESP 16–20; TEMP 36.2–37.2; O2SAT 97–100; BMI 30.2
[2021-05-03 08:32] LABS: UPreg QC Valid YES; Urine Pregnancy NEGATIVE (NEGATIVE)
[2021-05-03 08:36] LABS: COVID-19 Test Negative (Negative)
--- NOTE | 2021-05-03 08:54 | HO.ANESPROP2 ---
[facility] Active Problems Active Problems: All Active Problems (Updated 03/16/21 @ 16:28 by KAYDEN Jeter) MDD (major depressive disorder), recurrent severe, without psychosis (Acute) TREY (generalized anxiety disorder) (Acute) Past Medical History Medical History TREY (generalized anxiety disorder) GERD (gastroesophageal reflux disease) HTN (hypertension) MDD (major depressive disorder), recurrent severe, without psychosis MARIA TERESA (obstructive sleep apnea) Post traumatic stress disorder (PTSD) Family History Family History Mother Heart disease Family history of problems with anesthesia: No Surgical History Surgical History H/O gastric bypass Hx of cholecystectomy History of Problems with Anesthesia: No Social History Social History Household Members: Other Household Members Other:: 17 yo daughter Housing: Apartment Do you presently have visiting nurse or other home services: No Alcohol intake: current Alcohol intake frequency: holidays/special occasions only Patient Tobacco Use Status: Never used Tobacco Are you DNR?: No Advance Directives: No Advance Directives Information Provided: Yes service: No Sexual orientation: Did not discuss Meds Allergies Allergy/AdvReac Type Severity Reaction Status Date / Time coconut Allergy Severe Anaphylaxis Verified 03/14/21 22:10 nut - unspecified [NUTS] Allergy Severe HIVES, Verified 03/14/21 23:05 DIFF BREATHING, THROAT SWELLS peanut Allergy Severe Anaphylaxis Verified 03/14/21 22:10 Active Medications: Current Medications Lactated Ringer's (Lr) 1,000 mls @ 50 mls/hr IVCONT .Q20H [facility] Home Medications Medication Instructions Recorded Confirmed Last Taken Type trazodone 100 mg PO BEDTIME 03/15/21 03/15/21 Unknown History Exam Exam Date and Time: May 03, 2021 0854 Height,Weight and Vital Signs: Height 5 ft 2 in Weight 74.843 kg Last Vital Signs Temp 97.1 F 05/03/21 08:47 Pulse 97 05/03/21 08:47 Resp 18 05/03/21 08:47 BP 116/80 05/03/21 08:47 Pulse Ox 100 05/03/21 08:47 Pertinent Lab Results Pertinent Lab Results: Laboratory Tests 05/03/21 05/03/21 08:05 08:20 Urine Test NEGATIVE COVID-19 (JEFF) Negative COVID-19 Clin Com See Note Airway Mallampati Class: III TM Dist: >3cm Neck ROM: Full Heart: rrr Lungs: cta bl Assessment and Plan Assessment Anesthesia Assessment: Anesthesia Plan Discussed and Chart Reviewed Final Anesthetic Review Family History of Problems with Anesthesia: No History of Problems with Anesthesia: No NPO: Yes (Sip water with meds) ASA Class: III Final Preanesthetic Review: No Changes in Pt Med Stat, Meds/Allgs Chart Reviewed and Consent Obtained/Reviewed Patient Risk: Intermediate Procedure Risk: Intermediate Anesthetic Plan Anesthetic Plan: GA Disposition: Standard PACU
--- NOTE | 2021-05-03 09:25 | MHC.SHP ---
Pre-Procedural Eval Section A Date of Service: 05/03/21 The patient is an INPATIENT: No Changes since office visit: Yes Cold of Flu in the past 2 weeks, Yes New Medical Problems, Yes Changes in Medication and Yes Patient answered all questions The History & Physical has been completed within 30 days and I have reviewed it.: Yes Section B Chief Complaint: depression Details of Present Illness: Stable at this moment Relevant Family History (Specify if Yes): No Relevant Social History: None Present Medications: see Short Stay Collaborative assessment Medical History: No relevant PMH History of Previous Operations: No relevant previous surgery Allergies: Allergies Allergy/AdvReac Type Severity Reaction Status Date / Time coconut Allergy Severe Anaphylaxis Verified 03/14/21 22:10 nut - unspecified [NUTS] Allergy Severe HIVES, Verified 03/14/21 23:05 DIFF BREATHING, THROAT SWELLS peanut Allergy Severe Anaphylaxis Verified 03/14/21 22:10 Review of Systems Sugical H&P ROS: Negative: Constitution, Cardiovascular, Respiratory, Neurological, Psychiatric, Hem-Onc, Allergic/Immunologic, Gastrointestinal, Genitourinary, Musculoskeletal, Integumentary, Endocrine and Eyes/Ears/Nose/Throat Exam Surgical H&P Exam: Normal: HEENT, Normal: Heart, Normal: Lungs, Normal: Extremities, Normal: Abdomen, Normal: Skin and Normal: Neurological Plan Diagnosis/Plan: Unchanged I have reviewed the history and physical and performed a pertinent physical examination on my patient. No changes have occurred unless specified.
[2021-05-03] MEDS: Lactated Ringers 1,000 ML 50 ML IVCONT (09:39)
--- NOTE | 2021-05-03 09:45 | HO.ECTPROC ---
ECT Procedure Note Diagnosis/Treatment Date of Service: 05/03/21 Diagnosis: Major Depressive Disorder Treatment: Maintenance Interval Clinical Notes: The paitent reported euthymia. Her only concern was poor short term memory after the procedure. We changed to Bi-temporal 65%. ECT Settings Device: THYMATRON DGx Electrode Placement: Bitemporal Program/Pulse Width: 0.50 Energy Percent: 65 Seizure Duration By EEG (in seconds): 31 By Motor Observation (in seconds): 31 Medications Administration General Anesthetic: Etomidate (16) Muscle Relaxant: Succinylcholine (100) Ancillary Medications Analgesics: Torodol - Pre ECT Anti-emetics: Zofran - Pre ECT Miscillaneous Medications: Propofol Airway Management Airway Management: Bag Mask Ventilation Treatment Recommendations Electrode Placement: Right Unilateral Program/Pulse Width: 0.50 Energy Percent: 65 Pt Tolerated Procedure w/o Issue: Yes
== END 2021-05-03 11:11 | disposition home or self-care (01) ==
PROVIDERS: Psychiatry & Neurology Psychiatry; Visit Provider Psychiatry & Neurology Psychiatry
PROC: (CPT 90870; principal; 2021-05-03 09:30)
DX: F33.2 Major depressive disorder, recurrent severe without psychotic features (principal); F41.1 Generalized anxiety disorder; F43.10 Post-traumatic stress disorder, unspecified; I10 Essential (primary) hypertension; G47.33 Obstructive sleep apnea (adult) (pediatric); K21.9 Gastro-esophageal reflux disease without esophagitis; Z79.899 Other long term (current) drug therapy; Z20.822 Contact with and (suspected) exposure to COVID-19; Z98.84 Bariatric surgery status; Z90.49 Acquired absence of other specified parts of digestive tract
CPT/HCPCS: 81025; 87635; 90870; J0330; J1885; J2405

== ENCOUNTER 2022-07-10 20:51 | Inpatient (IN) | payer OTHER, SELFPAY ==
--- OUTSIDE RECORDS SUMMARY | 2022-07-10 20:55 | XMS_ITS ---
Author Name RACHNA HARDEN Address [address] [place] [address] Organization [facility] Address [address] [place] [address] Care Team Providers Care Papier Mache' Molder Name Role Phone RACHNA HARDEN Unavailable [phone] PROBLEMS Type Condition ICD9-CM Code ZJY82-BO Code Onset Dates Condition Status SNOMED Code Problem Suicide attempt T14.91 Active 55725618 Problem Body mass index (BMI) 34.0-34.9, adult Z68.34 Active 555005856479602 Problem Mixed hyperlipidemia E78.2 Active 179237325 Problem Generalized anxiety disorder F41.1 Active 13359863 Problem Major depressive disorder, recurrent, moderate F33.1 Active 04934952 Problem Bariatric surgery status Z98.84 Active 997369013 Problem Body mass index (BMI) 35.0-35.9, adult Z68.35 Active [id number] ALLERGIES No Known Allergies ENCOUNTERS Encounter Location Date Diagnosis [facility] [address] [place] [address] Jun, Poisoning by unspecified drugs, medicaments and biological substances, intentional self-harm, initial encounter T50.902A ; Mixed hyperlipidemia E78.2 ; Major depressive disorder, recurrent, moderate F33.1 and Generalized anxiety disorder F41.[address] [address] May, [address] [address] May, [address] 12 Mar, 2022 Acute upper respiratory infection, unspecified J06.[address] 09 Mar, [address] 08 Mar, 2022 Viral URI with cough J06.[address] 19 Jan, 2022 Suicide attempt T14.91 ; Dysuria R30.0 ; Vitamin B12 deficiency E53.8 and Atypical chest pain R07.[address] 02 Nov, 2021 Dietary counseling and surveillance Z71.3 and Screening due Z13.[address] 13 Aug, [address] 08 Jun, 2021 Dietary counseling and surveillance Z71.3 ; Body mass index (BMI) 34.0-34.9, adult Z68.34 and Diarrhea, unspecified R19.[address] 18 May, 2021 Suicide attempt T14.91 and Strain of muscle, fascia and tendon at neck level, initial encounter S16.1XXA [address] 08 May, [address] 08 May, 2021 Sprain of joints and ligaments of unspecified parts of neck, initial encounter S13.9XXA ; Strain of muscle, fascia and tendon of lower back, initial encounter S39.012A ; Major depressive disorder, recurrent, moderate F33.1 ; Body mass index (BMI) 35.0-35.9, adult Z68.35 and Dietary counseling and surveillance Z71.[address] [address] 19 Apr, 2021 Cough, unspecified R05.[address] [address] Apr, [address] [address] Apr, Viral infection, unspecified B34.[address] [address] Apr, [facility] [address] [place] [address] Apr, Major depressive disorder, recurrent, moderate F33.1 ; Generalized anxiety disorder F41.1 ; Suicide attempt T14.91 ; Bariatric surgery status Z98.84 ; Body mass index (BMI) 35.0-35.9, adult Z68.35 and Dietary counseling and surveillance Z71.[address] [address] Mar, [address] [address] Oct, IMMUNIZATIONS No Known Immunizations SOCIAL HISTORY Qualifiers Date Never Smoker REASON FOR REFERRAL FUNCTIONAL STATUS PLAN OF CARE Activity Details VITAL SIGNS Temperature 97.1 degrees Fahrenheit Temperature 97.2 degrees Fahrenheit Temperature 96.1 degrees Fahrenheit Temperature 96.1 degrees Fahrenheit Temperature 96.8 degrees Fahrenheit Temperature 97.2 degrees Fahrenheit Temperature 97.7 degrees Fahrenheit Heart Rate 94 /min 2022-06-11 Heart Rate 83 /min 2022-03-20 Heart Rate 76 /min 2022-01-29 Heart Rate 90 /min 2021-06-18 Heart Rate 91 /min 2021-05-31 Heart Rate 81 /min 2021-05-21 Heart Rate 124 /min 2021-04-17 Weight 196 lbs 2022-06-11 Weight 200 lbs 2022-03-20 Weight 200 lbs 2022-01-29 Weight 190 lbs 2021-06-18 Weight 190 lbs 2021-05-31 Weight 192 lbs 2021-05-21 Weight 193 lbs 2021-04-17 BMI 35.84 kg/m2 2022-06-11 BMI 36.58 kg/m2 2022-03-20 BMI 36.58 kg/m2 2022-01-29 BMI 34.75 kg/m2 2021-06-18 BMI 34.75 kg/m2 2021-05-31 BMI 35.11 kg/m2 2021-05-21 BMI 35.3 kg/m2 2021-04-17 Height 5'2 in 2022-06-11 Height 5'2 in 2022-03-20 Height 5'2 in 2021-06-18 Height 5'2 in 2021-05-21 Height 5'2 in 2021-04-17 Oximetry 98 % 2022-06-11 Oximetry 98 % 2022-03-20 Oximetry 99 % 2022-01-29 Oximetry 98 % 2021-06-18 Oximetry 98 % 2021-05-31 Oximetry 98 % 2021-05-21 Oximetry 98 % 2021-04-17 Blood pressure systolic 110 mm Hg Blood pressure diastolic 68 mm Hg 2022-06 MEDICATIONS Medication Instructions Dosage Frequency Start Date End Date Duration Status Bisacodyl EC 5 MG Orally Once a day 1 tablet as needed 24h Active Benzonatate 100 MG Orally Three times a day 1 capsule as needed 8h Mar, 7 days Not-Myra ng Zetia 10 MG Orally Once a day 1 tablet 24h May, 30 day(s) Not-Viki ng Pantoprazole Sodium 40 MG Orally Once a day 1 tablet 24h Active Folic Acid 1 MG Orally Once a day 1 tablet 24h Active Amoxicillin 500 MG Orally every 8 hrs 1 capsule 8h Mar, 10 days Not-Myra ng traZODone HCl 50 MG Orally Once a day 1 tablet at bedtime as needed 24h Active Prazosin HCl 1 MG Orally Once a day 2 capsule at bedtime 24h Active Effexor XR 150 MG Orally Once a day 1 capsule with food 24h Active Vitamin B12 1000 MCG Orally Once a day 1 tablet 24h Jan, 30 day(s) Active Zofran 4 MG Orally Once as needed 1 tablet Not-Myra ng Pyridium 100 MG Orally Three times a day 2 tablets after meals 8h Jan, 2 day(s) Not-Taki ng risperiDONE 0.25 MG Orally 4 times a day prn 1 tablet Not-Taki ng Zolpidem Tartrate 5 MG Orally Once a day 2 tablet at bedtime 24h Active Naltrexone HCl 50 MG Orally Once a day 1 tablet 24h Active Nitrofurantoin Monohyd Macro 100 MG Orally every 12 hrs 1 capsule with food 12h Jan, 7 day(s) Not-Taki ng Vitamin D 25 MCG (1000 UT) Orally Once a day 1 tablet 24h Active Omeprazole 20 MG Orally Once a day 1 capsule 30 minutes before morning meal 24h Not-Taki ng ARIPiprazole 20 MG Orally Once a day 1 tablet 24h Not-Taki ng SEROquel 50 MG Orally tid 1 tablet at bedtime 8h Active PROCEDURES Procedure Date Ordered Result Body Site ECG/MONITORING AND ANALYSIS Jan 29, 2022 ECG RECORDING Jan 29, 2022 PHONE E/M BY PHYS 5-10 MIN Apr 24, 2021 URINALYSIS, AUTO, W/O SCOPE Jan 29, 2022 RESULTS Name Result Date Reference Range COMPREHENSIVE METABOLIC PANEL 2022-05-30 ALBUMIN 3.5 3.2-5.0 ALK PHOS 87 42-121 ANION GAP 10 3-11 BILI,TOTAL 0.3 0.0-1.4 BUN 6 5-25 CALCIUM 8.8 8.5-10.5 CHLORIDE 109 96-110 CO2 23 21-32 CREAT 0.67 0.5-1.1 GLOMERULAR FILTRATION RATE 115 > 60 GLUCOSE 71 70-100 POTASSIUM 3.7 3.5-5.5 SGOT 29 10-42 SGPT 49 10-60 SODIUM 142 135-145 TOTAL PROTEIN 5.9 6.0-8.0 GLYCOHEMOGLOBIN PROFILE 2022-05-30 ESTIMATED AVERAGE GLUCOSE 97 GLYCATED HEMOGLOBIN A1C 5.0 <6.5 LIPID PROFILE 2022-05-30 CHOLESTEROL 173 0-200 HDL CHOLESTEROL 42 >40 LDL CALCULATED 78 0-100 TC-HDLC RATIO 4.1 0-4.4 TRIGLYCERIDES 265 0-150 Respiratory Profile, PCR 2022-03-20 Adenovirus Not Detected Bordetella pertussis Not Detected Chlamydophila pneumoniae Not Detected Coronavirus 229E (not COVID-19 Not Detected Coronavirus HKU1 (not COVID-19 Not Detected Coronavirus NL63 (not COVID-19 Not Detected Coronavirus OC43 (not COVID-19 Not Detected Human Metapneumovirus Not Detected Human Rhinovirus/Enterovirus Not Detected Influenza A Not Detected Influenza A/H1 TEST NOT PERFORMED Influenza A/H1-2009 TEST NOT PERFORMED Influenza A/H3 TEST NOT PERFORMED Influenza B Not Detected Mycoplasma pneumoniae Not Detected Parainfluenza 1 Not Detected Parainfluenza 2 Not Detected Parainfluenza 3 Not Detected Parainfluenza 4 Not Detected Respiratory Syncytial Virus Not Detected CULTURE, URINE 2022-01-29 CULTURE Mixed bacterial puja a, indicative of urogenital contamination. REPORT STATUS FINAL 01/31/2022 SPECIAL REQUESTS NONE SPECIMEN DESCRIPTION URINE VITAMIN B12 2021-12-25 VITAMIN B12 359 250-900 COMPREHENSIVE METABOLIC PANEL 2021-12-25 ALBUMIN 3.8 3.2-5.0 ALK PHOS 113 42-121 ANION GAP 6 3-11 BILI,TOTAL 0.4 0.0-1.4 BUN 5 5-25 CALCIUM 9.2 8.5-10.5 CHLORIDE 111 96-110 CO2 27 21-32 CREAT 0.83 0.5-1.1 GLOMERULAR FILTRATION RATE >60 GLUCOSE 100 70-100 POTASSIUM 3.8 3.5-5.5 SGOT 31 10-42 SGPT 42 10-60 SODIUM 144 135-145 TOTAL PROTEIN 6.6 6.0-8.0 FOLATE 2021-12-25 FOLATE 18.1 2.8-17.0 SELENIUM LEVEL,WHOLE BLOOD 2021-12-25 SELENIUM LEVEL,WHOLE BLOOD 109 6 3-160 TOTAL IRON BINDING CAPACITY 2021-12-25 % FE SATURATION 47 15-50 IRON (FE) 122 40-150 TOTAL IRON BINDING CAPACITY 261 250-450 VITAMIN D, 25-HYDROXY 2021-12-25 VITAMIN D, 25-HYDROXY 20 30-80 VITAMIN B1 PLASMA 2021-12-25 VITAMIN B1 LEVEL 54 38-122 VITAMIN B6 LEVEL 2021-12-25 VITAMIN B6 LEVEL 11 5-50 ZINC, PLASMA OR SERUM 2021-12-25 ZINC, PLASMA 60 60-130 X ray : Chest with 2 views 2021-05-02 Chest X-ray PA and lateral 2021-05-02 VITAMIN B12 2021-05-21 VITAMIN B12 390 (232-1245) PHOSPHORUS 2021-05-21 PHOSPHORUS 3.2 (2.5-4.5) MAGNESIUM 2021-05-21 MAGNESIUM 2.1 (1.6-2.3) CBC (COMPLETE BLOOD COUNT) 2021-05-21 ABS. NRBC 0.0 AUTOMATED NRBC 0.0 HCT 47.6 (35.7-45.8) HGB 15.2 (11.7-15.5) MCH 31.0 (27.0-34.0) MCHC 31.9 (33.0-37.0) MCV 97.1 (80.0-100.0) MPV 10.9 (9.4-12.4) PLT 298 (150-460) RBC 4.90 (4.20-5.40) RDW-SD 49.0 (<47.0) WBC 4.9 (4.0-11.0) TSH WITH REFLEX TO FT4 2021-05-21 TSH 1.17 (0.4-4.2) LIPID PANEL 2021-05-21 CHOLESTEROL, TOTAL 201 (<200) HDL CHOL 53 (>39) LDL CHOLESTEROL, CALCULATED 111 (0-130) NON HDL CHOLESTEROL (CALC) 148 ( <160) TRIGLYCERIDE 185 (<150) COMPREHENSIVE METABOLIC PANEL 2021-05-21 AG RATIO 1.8 ALBUMIN 4.3 (3.4-4.8) ALK PHOS 96 (35-104) ALT 20 (0-33) ANION GAP 11 (4-17) AST 27 (0-32) BICARBONATE 27 (22-29) BILIRUBIN,TOTAL 0.4 (0-1.2) BUN 5 (6-20) CALCIUM 9.6 (8.6-10.5) CHLORIDE 104 (98-107) CREATININE 0.8 (0.5-1.0) ESTIMATED GFR CREATININE 89 GLUCOSE 80 (70-99) POTASSIUM 4.7 (3.6-5.2) SODIUM 142 (133-145) TOTAL PROTEIN 6.7 (6.2-8.2) LOOPOGRAM 2018-05-31 REASON FOR VISIT hosp. f/u [facility], Headaches, SOB, Labs and FYI, New Rx, 3 month f/u, flu test result, Resp Pathogen Pending, fever cough sore throat covid negative, UTI sx and chest pain, Document Letter Request, F/U obesity. per pt she haves been having diarrhea for about one week, ER follow up,clinical question, follow up. per pt her neck and back hurts .pt will also like to talk about her BP, sick, sore throat ,runny nose, sick visit, new patient Insurance Providers Health Insurance Type Health Plan Insurance Address Health Plan Insurance Phone Health Plan Insurance Name Health Plan Coverage Dates Member ID Patient Relationship to Subscriber Patient Address Patient Phone Patient Name Patient Date of Subscriber ID Subscriber Name Subscriber Date of Group No [facility] [address] [address] [facility] [address] [facility] self Angelica Moreno [id number]
--- OUTSIDE RECORDS SUMMARY | 2022-07-10 20:55 | XMS_ITS | Continuity of Care Document ---
Author Name Unknown Organization [facility] Address [address] [place] [id number] Care Team Providers Care Machine Clothing Worker Name Role Phone Not on Staff, PCP Primary Care Physician Unavail able Encounter [facility] Date(s): 02/15/21 - 02/19/[address] [address]- Encounter Diagnosis Suicidal ideation(Final) - 02/15/21 Discharge Disposition: Transfer to [facility] Facility Attending Physician: Anya Shah MD Admitting Physician: Anya Shah MD Referring Physician: Not on Staff, Referring MD Allergies, Adverse Reactions, Alerts Substance Reaction Severity Status Lactose Persistent Mild Active Coconut Active Nuts 1 Active Peanuts Active 1tree nuts, peanuts Medications ARIPiprazole 20 mg oral tablet 1 tablet = 20 mg, By Mouth, Daily, # 30 tablet, 0 Refills, Maintenance, 02/15/21 21:24:00 EDT, Tablet, Partial fill upon patient request if the prescription is for a schedule II opioid drug. Start Date: 02/15/21 Status: Ordered Bisac-Evac 5 mg oral delayed release tablet 2 tablet = 10 mg, By Mouth, 2 times a day, 0 Refills, Maintenance, 02/16/21 13:51:00 EDT, Partial fill upon patient request if the prescription is for a schedule II opioid drug. Start Date: 02/16/21 Status: Ordered buPROPion 150 mg/12 hours (SR) oral tablet, extended release = 150 mg, By Mouth, 2 times a day, for mood/anxiety, # 30 tablet, 1 Refills, Maintenance, 10/13/17 9:19:50 EDT, SR Tablet Start Date: 10/13/17 Status: Ordered buPROPion 150 mg/24 hours (XL) oral tablet, extended release 1 tablet = 150 mg, By Mouth, Every 24 hours, # 30 tablet, 0 Refills, Maintenance, 02/15/21 21:28:00EDT, ER Tablet, Partial fill upon patient request if the prescription is for a schedule II opioid drug. Start Date: 02/15/21 Status: Ordered buPROPion 300 mg/24 hours (XL) oral tablet, extended release 1 tablet = 300 mg, By Mouth, Daily, # 30 tablet, 0 Refills, Maintenance, 02/15/21 21:23:00 EDT, ER Tablet, Partial fill upon patient request if the prescription is for a schedule II opioid drug. Start Date: 02/15/21 Status: Ordered busPIRone 15 mg oral tablet 1 tablet = 15 mg, By Mouth, 2 times a day, for anxiety, # 30 tablet, 1 Refills, Maintenance, 10/13/17 9:20:29 EDT Start Date: 10/13/17 Status: Ordered docusate sodium 100 mg oral capsule 100 mg, 1, capsule, By Mouth, Daily, Refills 0, Maintenance, 02/16/21 13:48:00 EDT, Partial fill upon patient request if the prescription is for a schedule II opioid drug. Start Date: 02/16/21 Status: Ordered duloxetine 60 mg oral enteric coated capsule = 60 mg, By Mouth, Daily, for mood/anxiety, # 15 capsule, 1 Refills, Maintenance, 10/13/17 9:18:04 EDT, Capsule Start Date: 10/13/17 Status: Ordered folic acid 1 mg oral tablet 1 mg, 1, tablet, By Mouth, Daily, # 30 tablet, Refills 0, Maintenance, 02/15/21 21:24:00 EDT, Partial fill upon patient request if the prescription is for a schedule II opioid drug. Start Date: 02/15/21 Status: Ordered hydrOXYzine pamoate 50 mg oral capsule = 50 mg, By Mouth, 3 times a day, PRN Anxiety, take 1 capsule up to 3 times daily for acute anxiety, # 30 capsule, 2 Refills, Maintenance, 10/13/17 9:18:40 EDT, Capsule Start Date: 10/13/17 Status: Ordered LaMICtal 25 mg oral tablet 25 mg, By Mouth, Daily, for mood stabilzation, # 15 tablet, Refills 1, Tot. Refills 1, Maintenance,10/13/17 9:19:20 EDT, Route to Pharmacy Electronically, [id number], [facility] [id number] Start Date: 10/13/17 Status: Ordered loratadine 10 mg oral tablet 10 mg, By Mouth, Daily, for hypertension, # 15 tablet, Refills 1, Tot. Refills 1, Maintenance, 10/13/17 9:21:10 EDT, Route to Pharmacy Electronically, [id number], [facility] [id number] Start Date: 10/13/17 Status: Ordered naltrexone 50 mg oral tablet 1 tablet = 50 mg, By Mouth, Daily, # 30 tablet, 0 Refills, Maintenance, 02/15/21 21:26:00 EDT, Tablet, Partial fill upon patient request if the prescription is for a schedule II opioid drug. Start Date: 02/15/21 Status: Ordered OXcarbazepine 300 mg oral tablet 300 mg, 1, tablet, By Mouth, 2 times a day, # 120 tablet, Refills 0, Maintenance, 02/15/21 21:25:00EDT, Partial fill upon patient request if the prescription is for a schedule II opioid drug. Start Date: 02/15/21 Status: Ordered pantoprazole 20 mg oral delayed release tablet = 20 mg, By Mouth, Daily, for acid reflux, # 30 tablet, 0 Refills, Maintenance, 10/13/17 9:22:59 EDT, EC Tablet Start Date: 10/13/17 Status: Ordered pantoprazole 40 mg oral delayed release tablet 1 tablet = 40 mg, By Mouth, Daily, # 30 tablet, 0 Refills, Maintenance, 02/15/21 21:23:00 EDT, EC Tablet Start Date: 02/15/21 Status: Ordered perphenazine 2 mg oral tablet 2 mg, By Mouth, 3 times a day, for anxiety/mood/psychosis, # 30 tablet, Refills 2, Tot. Refills 2, Maintenance, 10/13/17 9:23:17 EDT, Route to Pharmacy Electronically, [id number], [facility] [id number] Start Date: 10/13/17 Status: Ordered prazosin 1 mg oral capsule 4 mg, Capsule, By Mouth, 02/18/21 21:00:00 EST Start Date: 02/18/21 Stop Date: 02/18/21 Status: Completed prazosin 2 mg oral capsule See Instructions, take 2 capsules ( = 4 mg ) daily at bedtime for nightmares, # 20 capsule, 2 Refills, Maintenance, 10/13/17 9:24:18 EDT Start Date: 10/13/17 Status: Ordered SEROquel 100 mg oral tablet 100 mg, 1, tablet, By Mouth, Daily at bedtime, take 1 tablet daily as needed for sleep/anxiety, # 10 tablet, Refills 2, Tot. Refills 2, Maintenance, 10/13/17 9:25:10 EDT, Route to Pharmacy Electronically, [id number], [facility] Start Date: 10/13/17 Status: Ordered thiamine 100 mg oral tablet 100 mg, 1, tablet, By Mouth, Daily, # 10 tablet, Refills 0, Maintenance, 02/15/21 21:26:00 EDT, Partial fill upon patient request if the prescription is for a schedule II opioid drug. Start Date: 02/15/21 Stop Date: 02/25/21 Status: Ordered traZODone 50 mg oral tablet 50 mg, By Mouth, Daily at bedtime, PRN, take 1 tablet daily as needed for sleep, # 10 tablet, Refills 2, Tot. Refills 2, Maintenance, Sleep, 10/13/17 9:26:15 EDT, Route to Pharmacy Electronically, [id number], [facility] Start Date: 10/13/17 Status: Ordered Venlafaxine = 150 mg, By Mouth, Daily, 0 Refills, Maintenance, 02/15/21 21:22:00 EDT, Partial fill upon patientrequest if the prescription is for a schedule II opioid drug. Start Date: 02/15/21 Status: Ordered Vital Signs Most recent to oldest [Reference Range]: 1 2 3 Oxygen Saturation [94-100 %] 100 % (02/19/21 5:00 AM) 98 % (02/18/21 9:00 PM) 99 % (02/18/21 6:37 AM) Pulse Rate [55-90 bpm] 68 bpm (02/19/21 5:00 AM) 100 bpm *H* (02/18/21 9:00 PM) 92 bpm *H* (02/18/21 6:37 AM) Blood Pressure [90-138/55-84 mm Hg] 104/74mm Hg (02/19/21 5:00 AM) 114/88mm Hg (02/18/21 9:00 PM) 116/76mm Hg (02/18/21 8:13 PM) Respiratory Rate [16-30 br/min] 19 br/min (02/19/21 5:00 AM) 19 br/min (02/18/21 9:00 PM) 18 br/min (02/18/21 6:37 AM) Temperature [96.8-100.4 DegF] 97.5 DegF (02/19/21 5:00 AM) 97.8 DegF (02/18/21 9:00 PM) 98.3 DegF (02/18/21 6:37 AM) Mode of Delivery (Oxygen) Room air (02/19/21 5:00 AM) Room air (02/18/21 9:00 PM) Room air (02/18/21 6:37 AM) Blood pressure sites Arm, right (02/19/21 5:00 AM) Arm, right (02/18/21 9:00 PM) Arm, right (02/18/21 6:37 AM) Temperature Route Oral (02/19/21 5:00 AM) Oral (02/18/21 9:00 PM) Oral (02/18/21 6:37 AM) Social History Social History Type Response Smoking Status Never smoker entered on: 02/07/16 Sex
--- OUTSIDE RECORDS SUMMARY | 2022-07-10 20:55 | XMS_ITS ---
Author Name RACHNA HARDEN Address [address] [place] [address] Organization [facility] Address [address] [place] [address] Care Team Providers Care Security Solutions Architect Name Role Phone RACHNA HARDEN Unavailable [phone] PROBLEMS Type Condition ICD9-CM Code LJM90-SR Code Onset Dates Condition Status SNOMED Code Problem Suicide attempt T14.91 Active 74823889 Problem Body mass index (BMI) 34.0-34.9, adult Z68.34 Active 087463258492971 Problem Mixed hyperlipidemia E78.2 Active 172017478 Problem Generalized anxiety disorder F41.1 Active 55205896 Problem Major depressive disorder, recurrent, moderate F33.1 Active 00283603 Problem Bariatric surgery status Z98.84 Active 431964635 Problem Body mass index (BMI) 35.0-35.9, adult Z68.35 Active [id number] ALLERGIES No Known Allergies ENCOUNTERS Encounter Location Date Diagnosis [facility] [address] [place] [address] Jun, Poisoning by unspecified drugs, medicaments and biological substances, intentional self-harm, initial encounter T50.902A ; Mixed hyperlipidemia E78.2 ; Major depressive disorder, recurrent, moderate F33.1 and Generalized anxiety disorder F41.[address] [address] May, [address] [address] May, [address] 12 Mar, 2022 Acute upper respiratory infection, unspecified J06.[address] 09 Mar, [address] 08 Mar, 2022 Viral URI with cough J06.[address] 19 Jan, 2022 Suicide attempt T14.91 ; Dysuria R30.0 ; Vitamin B12 deficiency E53.8 and Atypical chest pain R07.[address] 02 Nov, 2021 Dietary counseling and surveillance Z71.3 and Screening due Z13.[address] 13 Aug, [address] 08 Jun, 2021 Dietary counseling and surveillance Z71.3 ; Body mass index (BMI) 34.0-34.9, adult Z68.34 and Diarrhea, unspecified R19.[address] 18 May, 2021 Suicide attempt T14.91 and Strain of muscle, fascia and tendon at neck level, initial encounter S16.1XXA [address] 08 May, [address] 08 May, 2021 Sprain of joints and ligaments of unspecified parts of neck, initial encounter S13.9XXA ; Strain of muscle, fascia and tendon of lower back, initial encounter S39.012A ; Major depressive disorder, recurrent, moderate F33.1 ; Body mass index (BMI) 35.0-35.9, adult Z68.35 and Dietary counseling and surveillance Z71.[address] [address] 19 Apr, 2021 Cough, unspecified R05.[address] [address] Apr, [address] [address] Apr, Viral infection, unspecified B34.[address] [address] Apr, [facility] [address] [place] [address] Apr, Major depressive disorder, recurrent, moderate F33.1 ; Generalized anxiety disorder F41.1 ; Suicide attempt T14.91 ; Bariatric surgery status Z98.84 ; Body mass index (BMI) 35.0-35.9, adult Z68.35 and Dietary counseling and surveillance Z71.[address] [address] Mar, [address] [address] Oct, IMMUNIZATIONS No Known Immunizations SOCIAL HISTORY [...] 2021-05-02 Chest X-ray PA and lateral 2021-05-02 TSH WITH REFLEX TO FT4 2021-05-21 TSH 1.17 (0.4-4.2) CBC (COMPLETE BLOOD COUNT) 2021-05-21 ABS. NRBC 0.0 AUTOMATED NRBC 0.0 HCT 47.6 (35.7-45.8) HGB 15.2 (11.7-15.5) MCH 31.0 (27.0-34.0) MCHC 31.9 (33.0-37.0) MCV 97.1 (80.0-100.0) MPV 10.9 (9.4-12.4) PLT 298 (150-460) RBC 4.90 (4.20-5.40) RDW-SD 49.0 (<47.0) WBC 4.9 (4.0-11.0) MAGNESIUM 2021-05-21 MAGNESIUM 2.1 (1.6-2.3) PHOSPHORUS 2021-05-21 PHOSPHORUS 3.2 (2.5-4.5) VITAMIN B12 2021-05-21 VITAMIN B12 390 (232-1245) COMPREHENSIVE METABOLIC PANEL 2021-05-21 AG RATIO 1.8 ALBUMIN 4.3 (3.4-4.8) ALK PHOS 96 (35-104) ALT 20 (0-33) ANION GAP 11 (4-17) AST 27 (0-32) BICARBONATE 27 (22-29) BILIRUBIN,TOTAL 0.4 (0-1.2) BUN 5 (6-20) CALCIUM 9.6 (8.6-10.5) CHLORIDE 104 (98-107) CREATININE 0.8 (0.5-1.0) ESTIMATED GFR CREATININE 89 GLUCOSE 80 (70-99) POTASSIUM 4.7 (3.6-5.2) SODIUM 142 (133-145) TOTAL PROTEIN 6.7 (6.2-8.2) LIPID PANEL 2021-05-21 CHOLESTEROL, TOTAL 201 (<200) HDL CHOL 53 (>39) LDL CHOLESTEROL, CALCULATED 111 (0-130) NON HDL CHOLESTEROL (CALC) 148 ( <160) TRIGLYCERIDE 185 (<150) LOOPOGRAM 2018-05-31 REASON FOR VISIT hosp. f/u [...] Subscriber Date of Group No [facility] [address] [address] [facility] [address] [facility] self Angelica Moreno [id number]
--- OUTSIDE RECORDS SUMMARY | 2022-07-10 20:55 | XMS_ITS | Continuity of Care Document ---
Author Name Unknown Organization [facility] ter Address [address] [place] [id number]- Care Team Providers Care Deputy Treasurer Name Role Phone Leandra Stephens MD Primary Care Physician [phone] Encounter [facility] Date(s): 05/15/22 - 05/28/[address] [id number] Discharge Disposition: Transfer to [facility] Attending Physician: Angelo Azar MD Admitting Physician: Sunil Al MD Referring Physician: Not on Staff, Referring MD Allergies, Adverse Reactions, Alerts Substance Reaction Severity Status Nuts 1 Active Peanuts Active Lactose Persistent Mild Resolved Coconut Active 1tree nuts, peanuts Immunizations Given and Recorded Vaccine Date Status Refusal Reason SARS-CoV-2 (COVID-19) mRNA BNT-162b2 vac 08/26/20 Recorded SARS-CoV-2 (COVID-19) mRNA BNT-162b2 vac 08/05/20 Recorded Medications hydrOXYzine pamoate 25 mg oral capsule 2 capsule = 50 mg, By Mouth, Every 6 hours, PRN Anxiety, 0 Refills, Maintenance, 05/26/22 10:16:00 EST, Capsule, Partial fill upon patient request if the prescription is for a schedule II opioid drug. Start Date: 05/26/22 Status: Ordered naltrexone 50 mg oral tablet 1 tablet = 50 mg, By Mouth, Daily, # 30 tablet, 0 Refills, Maintenance, 05/15/22 3:18:00 EST, Tablet, Partial fill upon patient request if the prescription is for a schedule II opioid drug. Start Date: 05/15/22 Status: Ordered prazosin 1 mg oral capsule 1 mg, 1, capsule, By Mouth, Daily at bedtime, # 30 tablet, Refills 0, Maintenance, 05/15/22 3:14:00EST, Partial fill upon patient request if the prescription is for a schedule II opioid drug. Start Date: 05/15/22 Status: Ordered prazosin 1 mg oral capsule 2 mg, Capsule, By Mouth, Hold for: sbp <100, 05/28/22 21:00:00 EST Start Date: 05/28/22 Stop Date: 05/28/22 Status: Completed SEROquel 50 mg oral tablet 1 tablet = 50 mg, By Mouth, 3 times a day, # 60 tablet, 0 Refills, Maintenance, 05/15/22 3:13:00 EST, Tablet, Partial fill upon patient request if the prescription is for a schedule II opioid drug. Start Date: 05/15/22 Status: Ordered traZODone 50 mg oral tablet 50 mg, 1, tablet, By Mouth, Daily at bedtime, Refills 0, Maintenance, 05/26/22 10:16:00 EST, Partial fill upon patient request if the prescription is for a schedule II opioid drug. Start Date: 05/26/22 Status: Ordered venlafaxine 225 mg oral tablet, extended release 225 mg, 1, tablet, By Mouth, Daily, # 30 tablet, Refills 0, Maintenance, 05/15/22 3:13:00 EST, Partial fill upon patient request if the prescription is for a schedule II opioid drug. Start Date: 05/15/22 Status: Ordered ZyPREXA 5 mg oral tablet 5 mg, 1, tablet, By Mouth, Every 6 hours, PRN, Refills 0, Maintenance, Agitation, 05/26/22 10:16:00EST, Partial fill upon patient request if the prescription is for a schedule II opioid drug. Start Date: 05/26/22 Status: Ordered Problem List Condition Confirmation Course Effective Dates Status Health St atus Informant Generalized anxiety disorder Confirmed Active Major depressive disorder Confirmed Active Obese class II Confirmed Active PTSD (post-traumatic stress disorder) Confirmed Active Results Orders for Microbiology Reports Name Date Blood Culture 05/16/22 Blood Culture #2 05/16/22 Microbiology Reports TEST:Blood Culture, Second Order STATUS:Auth (Verified) BODY SITE: SOURCE:Blood COLLECTED DATE/TIME:05/16/22 6:00 AM Blood Culture, Second Order SPECIMEN DESCRIPTION : BLOOD RT LOWER ARM SPECIAL REQUESTS : NONE CULTURE : NO GROWTH 5 DAYS. REPORT STATUS : FINAL 05/21/2022 TEST:Blood Culture STATUS:Auth (Verified) BODY SITE: SOURCE:Blood COLLECTED DATE/TIME:05/16/22 5:46 AM Blood Culture SPECIMEN DESCRIPTION : BLOOD RA SPECIAL REQUESTS : NONE CULTURE : NO GROWTH 5 DAYS. REPORT STATUS : FINAL 05/21/2022 Radiology Reports * Exam Date Time Procedure Performing Provider Status 05/16/22 4:10 AM Chest Portable Janes Foster; Auth (Verified) Notes: (Chest Portable) Reason For Exam: Fever RESULT: Chest Portable Chest Portable Reason: Fever; Clinical Question(s): Pneumonia COMPARISON: None. FINDINGS: LINES AND TUBES: None. LUNGS AND PLEURA: Low lung volumes with mild basilar atelectasis. Lungs are otherwise clear with no consolidation. No pleural effusion. No pneumothorax. HEART, MEDIASTINUM AND TERESA: Heart is normal in size. Normal mediastinal and hilar contour. BONES AND SOFT TISSUES: No acute abnormality. IMPRESSION: No acute abnormality. I have personally reviewed the images and I agree with this report. WSN: [id number] Ordering Physician: Jessee Benitez Dictated By: Sunil Quintanilla MD Dictated Date/Time: 05/16/22 8:29 am Reviewed By: Simba Good MD, V Signed By: Simba Good MD, V Signed Date/Time: 05/16/22 8:34 am Transcribed By: RON Transcribed Date/Time: 05/16/22 8:28 am Vital Signs Most recent to oldest [Reference Range]: 1 2 3 Height 158 cm (05/28/22 7:31 PM) 158 cm (05/28/22 3:29 PM) 158 cm (05/28/22 7:24 AM) Weight 91.2 kg (05/15/22 3:40 AM) Oxygen Saturation [94-100 %] 96 % (05/28/22 7:31 PM) 98 % (05/28/22 3:29 PM) 98 % (05/28/22 7:24 AM) Pulse Rate [55-90 bpm] 71 bpm (05/28/22 7:31 PM) 68 bpm (05/28/22 3:29 PM) 56 bpm (05/28/22 7:24 AM) Body Mass Index [18.5-24.99 kg/m2] 36.53 kg/m2 *>HHI* (05/15/22 3:40 AM) Blood Pressure [90-138/55-84 mm Hg] 108/78mm Hg (05/28/22 8:52 PM) 102/70mm Hg (05/28/22 7:31 PM) 110/81mm Hg (05/28/22 3:29 PM) Respiratory Rate [16-30 br/min] 17 br/min (05/28/22 7:31 PM) 18 br/min (05/28/22 3:29 PM) 18 br/min (05/28/22 7:24 AM) Temperature [96.8-100.4 DegF] 97.8 DegF (05/28/22 7:31 PM) 97.3 DegF (05/28/22 3:29 PM) 97.7 DegF (05/28/22 7:24 AM) Mode of Delivery (Oxygen) Room air (05/28/22 7:31 PM) Room air (05/28/22 3:29 PM) Room air (05/28/22 7:24 AM) Blood pressure sites Arm, left (05/28/22 7:31 PM) Arm, right (05/28/22 3:29 PM) Arm, right (05/28/22 7:24 AM) Temperature Route Oral (05/28/22 7:31 PM) Oral (05/28/22 3:29 PM) Oral (05/28/22 7:24 AM) Dry Weight 91.2 kg (05/15/22 3:40 AM) Social History Social History Type Response Smoking Status Never smoker entered on: 02/07/16 Sex Admission evaluation note * Christian CHRISTINA, David: PERFORM Event Display: Admission Note Authored Date: [id number] Patient: ??JOSÉ LUIS SOUZA ? Age:??36 Years?Sex:??Female?:??1985?? Chief Complaint/Reason for Consultation Suicide attempt History of Present Illness Patient is a 36 years old female with past medical history of PTSD, depression??was admitted at psych unit??with chief complaint of??SI attempt??after overdosing on psychiatric medications. ? The patient??overdosed herself on Seroquel, risperidone and Ambien??with intention to hurt herself.?? Patient was admitted??under psychiatric service however, patient??was COVID-positive yesterday and therefore,?? she is moved to medical floor. ? Patient is denying any symptoms of chest pain, shortness of breath but reports generalized body aches. ??Patient reported that she is still having active suicidal ideation??and patient has been??wrapping things around her neck??in attempt to hurt herself. Review of Systems All pertinent negative and positives are noted in HPI. ??All other systems were reviewed and are negative Objective Measurements?? Height: 158 cm (05/15/22) Weight: 91.2 kg (05/15/22) Dry Weight: 91.2 kg (05/15/22) Body Mass Index:??36.53 kg/m2??Critical (05/15/22) ? Vital Signs?? Temperature: 98.6 DegF (05/15/22 03:40:00) Temperature Route: Temporal (05/15/22 03:40:00) Pulse Rate:??91 bpm??High (05/15/22 03:40:00) Respiratory Rate: 18 br/min (05/15/22 03:40:00) Systolic Blood Pressure: 112 mm Hg (05/15/22 03:40:00) Diastolic Blood Pressure: 72 mm Hg (05/15/22 03:40:00) Blood pressure sites: Arm, left (05/15/22 03:40:00) Mean Arterial Pressure: 85 mm Hg (05/15/22 03:40:00) Pulse Pressure: 40 mm Hg (05/15/22 03:40:00) Oxygen Saturation: 99 % (05/14/22 19:48:00) Mode of Delivery (Oxygen): Room air (05/14/22 19:48:00) Early Warning Score: 0 (05/15/22 03:47:14) ? Physical Exam Constitutional: Alert, in no acute distress. Head: Normocephalic. ?? Eyes: Pupils are equal, round and reactive to light. Extraocular muscles intact. No pallor or scleral icterus ?? Ear, Nose and Throat: mucous membranes moist. Ears and nose - no obvious deformities. Trachea midline. ?? Neck: Supple, Full range of motion.No JVD or bruits. Respiratory:??Clear to auscultation. No wheezing or rhonchi.??No use of accessory muscles. No tactile fremitus.?? Cardiovascular:??PMI not visible. S1 S2 regular. No murmurs, rubs or gallops. Gastrointestinal:??Abdomen soft, non-tender, non-distended. Normal bowel sounds. No pulsatile mass.No hepatosplenomegaly. Genitourinary:??No costovertebral angle tenderness. Extremities: No lower extremity pitting edema. No cyanosis or clubbing. Neurologic:??AAOx3, Cranial nerves II-XII grossly intact. Speech normal, no facial droop. No focal neurological deficits. Moves all extremities spontaneously. Sensation intact bilaterally.??Flexor plantar response Skin:??No rash.?? Musculoskeletal:??No gross deformities on inspection. Normal range of motion in hips, knees, ankles. .??Muscle strength within normal limits Heme/Lymphatics:??Palpation of neck reveals no swelling or tenderness of neck nodes.?? Psychiatric: Depressed with active suicidal ideation Assessment/Plan Diagnoses 1. ??COVID-19 virus detected ??(U07.1) 2. ??Major depressive disorder ??(F32.9) 3. ??PTSD (post-traumatic stress disorder) ??(F43.10) 4. ??Generalized anxiety disorder ??(F41.1) ?? Assessment:??Patient is a 36 years old female who was admitted to psychiatric unit with??suicidal ideation. However, patient was found to have COVID-19 yesterday and therefore not transferred to medical floor ?? COVID-19 virus detected (U07.1):??Patient was diagnosed with COVID-19 yesterday but patient is asymptomatic On room air, saturating above 94%, no respiratory distress Will monitor respite status ? Major depressive disorder PTSD TREY Suicide attempt Patient presented??after overdosing herself on psychiatric medication??with the intention of hurting herself. ??Patient was admitted at psychiatric unit.?? Patient medication were adjusted and she was started on??increased dose of venlafaxine, Seroquel 50 mg 3 times a day??along with as needed medication for agitation anxiety , Patient is still having??active suicidal ideation and patient told me that she??has been trying to wrap??things around her neck.?? Patient endorsed that she??try to wrap things around her neck lastnight , Patient is in the room??with the neighbor. patient is not safe in her room she has access to her neighbor belongings including balloons with the strings??.therefore??, we talked to patient placement and patient will be transferred to a private room??where she will have limited access to wires or t hings that she can wrap around her neck Meanwhile,??patient is placed under??constant one-to-one supervision,??also advised the nurse that PCT needs to present in the room continuously unless??patient moved to private room Nursing auger supervisor??also aware of patient's??clinical condition Suicide precautions ordered, psychiatric consult placed All psychiatric medications ordered ? Back Pain: Resume??medication naltrexone VTE Prophylaxis:??SCDs ?VTE Prophylaxis Assessment:??VTE Prophylaxis Ordered ?? Code Status:??FULL CODE ?Order Code Status:??Code Status Ordered ?? Ongoing Medical Necessity:??COVID-19 ?? Discharge Planning:??Pending clinical course ? Date of service: May 15, 2022 Histories Allergies Allergies ?(Active and Proposed Allergies Only) Coconut? (Severity: Unknown severity, Onset: Unknown) Nuts? (Severity: Unknown severity, Onset: Unknown) ?Comments: tree nuts, peanuts Peanuts? (Severity: Unknown severity, Onset: Unknown) ?Reactions: Cow's milk allergy ? Past Medical History/Problem List Active Problems??(4) Generalized anxiety disorder Major depressive disorder Obese class II PTSD (post-traumatic stress disorder) ? Past Surgical History No surgery history documented. ? Social History Alcohol Details:??Use: Past. ??Frequency: 1-2 times per year. ??Type: Liquor. Substance Abuse Details:??Use: Never. Tobacco Details:??Never smoker ? Family History No family history recorded. ? Medications Home Medications Naltrexone (naltrexone 50 mg oral tablet)?1?tab(s)?50?Milligram?By Mouth?Daily Prazosin (prazosin 1 mg oral capsule)?1?Milligram?1?capsule?By Mouth?Daily at bedtime Quetiapine (SEROquel 50 mg oral tablet)?1?tab(s)?50?Milligram?By Mouth?3 times a day Venlafaxine (venlafaxine 225 mg oral tablet, extended release)?225?Milligram?1?tablet?By Mouth?Daily ? Results Recent Labs VIROLOGY COVID-19 by RT-PCR POSITIVE (Abnormal)?? 05/14/2022 16:16 ? Coagulation Profile?? No qualifying data available. ?? Hospital Progress note * Kimber Chavez LPN: VERIFY, PERFORM, SIGN Event Display: Progress Note Hospital Authored Date: Patient: JOSÉ LUIS SOUZA Age: 36 years Sex: Female : 1985 Associated Diagnoses: None Author: Kimber Chavez LPN Findings Narrative/Incidental Patient A & O x 4. LSCTA. Satting on RA. Abdomen round, and non-tender. Bowel sounds present in4 quadrants. Voiding in the bathroom. Pedal pulses present. Pt transferred to [facility]. Bailee, called from [facility], and report was given to her. Chaparrita Kendrick, Disposition Coordinator to the floor to notify of placement. Geovanni MONIQUE paged to [facility] 12 form, and to give order for discharge. She came to the floor, and did this. [facility] arrived, and given report on pt. All belongings accompanied pt. She was transported via ambulance at 2110.. * Rosy Neal RN: PERFORM, SIGN, VERIFY Event Display: Progress Note Hospital Authored Date: [id number] Patient: JOSÉ LUIS SOUZA Age: 36 years Sex: Female : 1985 Associated Diagnoses: None Author: Rosy Neal RN Findings Problem Related to Alteration in Psychosocial : Alteration in Psychosocial Function/new 05/28/2022 4:04 EST Alteration in Psychosocial Related to Anxiety, Suicidal Goals & Outcomes, Psychosocial Psychosocial support will be provided to Pt/S.O. as needed, Pt will be monitored for suicidal ideation Interventions, Psychosocial Assess psychosocial needs, Assess readiness to learn needed lifestyle changes, Assess/monitor level of consciousness, Collaborate with provider for psychiatric consult, Offer support; discuss coping strategies, Provide a calm, supportive environment, Provide chances to express concerns/emotions/expectations, Provide info on community resources for education, support, Assess causes of anxiety needing immediate treatment, Assess for anxiety, Encourage family to bring in music pt enjoys BH Goals/Interventions, Psychosocial Yes Psychosocial, Problem Start 05/23/2022 15:23 Reviewed Plan with, Psychosocial Patient . Evaluation Patient alert and oriented X3. Lungs clear. Abdomen soft, non- tender, BS+. Voiding in the bathroom. Ambulating indepnedenty with steady gait. Denies pain. Tolerating diet wihtotu difficulty. Constant claim manager at bedside. Patient waiting for inpatient psych placement. Will continue to monitor. . * Ros Gage: PERFORM, SIGN, VERIFY Event Display: Progress Note Hospital Authored Date: [id number] Patient: JOSÉ LUIS SOUZA Age: 36 years Sex: Female : 1985 Associated Diagnoses: None Author: Ros Gage Findings Narrative/Incidental Behavioral Resource Clinician Note: Chart reviewed due to order for Behavioral Resource Tech (BRT)/Constant Training Intern for SI. Pt is boarding on the medical unit, it medically cleared for return to inpatient psych ??? awaiting bed. Pt has been cooperative with care and safety plan while on the unit.She is pleasant upon approach, reported good sleep, ???ok?? mood ??? no noted change in several days. Pt reported SI today without plan or intent. Yesterday, no SI reported. Clinician provided positive feedback, acknowledging pt???s cooperation with plan and ability to keep herself safe even when experiencing SI. Pt was receptive. Pt had a positive visit with her boyfriend yesterday and father has visited several times. Continue to follow up. Clinician spoke with Nico [facility] bed search/placement team - no inpatient psych bed offers at this time. Pt's safety plan was provided. Recommendations - - Continue constant claim manager for safety/SI Review and implement safety plan updated 05/28/22 and posted below - Please remain vigilant about suicide precautions and environmental safety. - Offer validation and support as appropriate - Encourage pt. to practice personal care and hygiene such as getting out of bed regularly, sittingup for meals, showering, brushing teeth and washing face daily when possible to prevent hospital deconditioning. SAFETY PLAN S1 L.W. Updated 05/28/22: Please pass this paper to assigned 1:1 (BRT/PCT) at shift change & when being covered for breaks Please ensure that all 1:1's are getting a report of pt at the beginning of shift and when covering breaks Pt has a hx of suicidality and self-harm Be vigilant about environmental safety- pt has a hx of tying linens, towels, clothing around neck in order to self-harm *IF PT ENGAGES IN SELF-HARM: will have to wear paper safety gown *Proactive PRN medication for early signs or reports of anxiety - before behavior escalates ENVIRONMENTAL: *1:1 must monitor pt while in bathroom Remove all items from room that could pose ligature risk or used to self-harm: -No extra linens/bedding/pillowcases/towels in room -1 pair of clothing or 1 medical gown at a time -NO personal belongings in room -TRAYS: Remove ALL utensils including plastic utensils ??? rec: FINGER FOOD ONLY -No brooks/brushes/toiletries - has used these to superficially self-harm -Remove mask wires -Remove room phone, no cell phone. (Room phone can be brought in, used supervised by 1:1 and removed after call complete) -Pt should keep hands visible -Neck should always be visible (not under blanket) due to risk of pt tying items around neck -When doffing PPE, please do not leave used PPE in garbage inside pt???s room - use paper bag to doff and throw away outside of room -Anything (medical equipment etc???)that is brought into the room must come out of the room COMMUNICATION: -Pt may threaten to harm self or harm self in non-suicidal ways - get help in emergency but avoid strong response to threats or superficial injuries ??? calmly ask pt to stop behavior (strong responses reinforce pt's emotional gain from these negative/maladaptive behaviors) -Avoid bending rules -Set clear limits and expectations, be consistent (ex: if you self-harm you will be asked to wear apaper gown for safety) -Have one RN and one PCT as point person per shift - do not allow pt to make requests of multiple people -Validate feelings -Find opportunities to give positive feedback (for making her needs known appropriately, trying alternate coping skills for anxiety, not engaging in self- injury etc???) Please call Behavior Resource team at [phone] or Cortext/page with any questions or concerns: Michael Andrade, Maria Luisa Naqvi, Ros Gage or Marie Ronquillo . 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 Age:??36 Years?Sex:??Female?:??1985?? Patient Information Discharge Location: S1 Primary Care Physician: Leandra Stephens MD Admit Date/Time: 05/15/22 03:02 Discharge Disposition Discharge Disposition: ?? 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 _ Discharge Medications HydrOXYzine (hydrOXYzine pamoate 25 mg oral capsule)?2?capsule?50?Milligram?By Mouth?Every 6 hours?as needed?Anxiety Naltrexone (naltrexone 50 mg oral tablet)?1?tab(s)?50?Milligram?By Mouth?Daily Olanzapine (ZyPREXA 5 mg oral tablet)?5?Milligram?1?tablet?By Mouth?Every 6 hours?as needed?Agitation Prazosin (prazosin 1 mg oral capsule)?1?Milligram?1?capsule?By Mouth?Daily at bedtime Quetiapine (SEROquel 50 mg oral tablet)?1?tab(s)?50?Milligram?By Mouth?3 times a day Trazodone (traZODone 50 mg oral tablet)?50?Milligram?1?tablet?By Mouth?Daily at bedtime Venlafaxine (venlafaxine 225 mg oral tablet, extended release)?225?Milligram?1?tablet?By Mouth?Daily ? Objective Assessment and Plan ? Vital Signs?? Temperature: 97.7 DegF (05/28/22 07:24:00) Temperature Route: Oral (05/28/22 07:24:00) Pulse Rate: 56 bpm (05/28/22 07:24:00) Respiratory Rate: 18 br/min (05/28/22 07:24:00) Systolic Blood Pressure: 104 mm Hg (05/28/22 07:24:00) Diastolic Blood Pressure: 58 mm Hg (05/28/22 07:24:00) Blood pressure sites: Arm, right (05/28/22 07:24:00) Mean Arterial Pressure: 73 mm Hg (05/28/22 07:24:00) Pulse Pressure: 46 mm Hg (05/28/22 07:24:00) Oxygen Saturation: 98 % (05/28/22 07:24:00) Mode of Delivery (Oxygen): Room air (05/28/22 07:24:00) Early Warning Score: 2 (05/28/22 07:24:39) ? . Physical Exam ?? General: [Alert, in no acute cardiopulmonary distress.] Mental Status: [Oriented to person, place and time. Normal affect.] Head: [Normocephalic.] Eyes: [Pupils are equal, round and reactive to light. Extraocular muscles intact.] Ear, Nose and Throat: [Oropharynx clear, mucous membranes moist. Respiratory: [Clear to auscultation and percussion. No wheezing, rales or rhonchi.] Cardiovascular: [Heart sounds normal. No thrills. Regular rate and rhythm, no murmurs, rubs or gallops.] Gastrointestinal: [Abdomen soft, non-tender, non-distended. Normal bowel sounds. Neurologic: [Cranial nerves II-XII grossly intact. No focal neurological deficits. Psych depressed Pending Results COVID-19 (2019 Novel Coronavirus) PCR ordered on 05/19/2022 Home Health Face to Face ^[facility] Results Discharge Labs BLOOD COUNT & DIFF WBC 4.8 k/mm3 ()?? 05/23/2022 00:26 RBC 4.56 m/mm3 ()?? 05/23/2022 00:26 Hgb 14.2 Gm/dL ()?? 05/23/2022 00:26 Hct 42.2 % ()?? 05/23/2022 00:26 MCV 92.5 femtoliters ()?? 05/23/2022 00:26 MCH 31.1 pg ()?? 05/23/2022 00:26 MCHC 33.6 g/dL ()?? 05/23/2022 00:26 Platelet Count 150 k/mm3 ()?? 05/23/2022 00:26 RDW-SD 43.8 femtoliters ()?? 05/23/2022 00:26 MPV 11.6 femtoliters ()?? 05/23/2022 00:26 Nucleated RBC (Automated) 0.0 #/100 WBC'S ()?? 05/23/2022 00:26 Abs. NRBC 0.0 k/mm3 ()?? 05/23/2022 00:26 Abs. Neut 3.8 k/mm3 ()?? 05/16/2022 06:00 Abs. Lymph 1.1 k/mm3 ()?? 05/16/2022 06:00 Abs. [place] 0.5 k/mm3 ()?? 05/16/2022 06:00 Abs. Eo 0.0 k/mm3 ()?? 05/16/2022 06:00 Abs. Baso 0.0 k/mm3 ()?? 05/16/2022 06:00 Neut % 69.0 % ()?? 05/16/2022 06:00 Lymph % 20.3 % ()?? 05/16/2022 06:00 [place] % 9.6 % ()?? 05/16/2022 06:00 Eos % 0.2 % ()?? 05/16/2022 06:00 Baso % 0.5 % ()?? 05/16/2022 06:00 Imm Gran 0.4 % ()?? 05/16/2022 06:00 Abs. Imm Gran 0.0 k/mm3 ()?? 05/16/2022 06:00 ?? CHEM GENERAL Sodium 141 mmol/L ()?? 05/23/2022 00:26 Potassium 3.7 mmol/L ()?? 05/23/2022 00:26 Chloride 106 mmol/L ()?? 05/23/2022 00:26 Bicarbonate Level 23 mmol/L ()?? 05/23/2022 00:26 Anion Gap 12 ()?? 05/23/2022 00:26 Glucose Level 78 mg/dL ()?? 05/15/2022 06:36 BUN 4 mg/dL (Low)?? 05/23/2022 00:26 Creatinine-Blood 0.7 mg/dL ()?? 05/23/2022 00:26 Estimated GFR Creatinine 114 ML/MIN/1.73 M2 ()?? 05/23/2022 00:26 Calcium 9.2 mg/dL ()?? 05/15/2022 06:36 Magnesium 2.1 mg/dL ()?? 05/23/2022 00:26 Lactate 0.7 mmol/L ()?? 05/16/2022 06:00 ?? UA/URINALYSIS Appear/Color, Urine LIGHT YELLOW ()?? 05/16/2022 06:00 Specific [place], Urine 1.011 ()?? 05/16/2022 06:00 pH, Urine 6.0 ()?? 05/16/2022 06:00 Albumin, Urine NEGATIVE ()?? 05/16/2022 06:00 Glucose, Urine NEGATIVE ()?? 05/16/2022 06:00 Ketones, Urine NEGATIVE ()?? 05/16/2022 06:00 Bilirubin, Urine NEGATIVE ()?? 05/16/2022 06:00 Hemoglobin, Urine NEGATIVE ()?? 05/16/2022 06:00 Nitrite, Urine NEGATIVE ()?? 05/16/2022 06:00 Leukocyte, Urine 1+ (Abnormal)?? 05/16/2022 06:00 Urobilinogen NORMAL mg/dL ()?? 05/16/2022 06:00 WBC's, Urine 17 /HPF (High)?? 05/16/2022 06:00 RBC's, Urine 2 /HPF ()?? 05/16/2022 06:00 Bacteria SLIGHT HPF (Abnormal)?? 05/16/2022 06:00 Squamous Epith 5 /HPF ()?? 05/16/2022 06:00 Mucus SLIGHT /LPF ()?? 05/16/2022 06:00 ?? VIROLOGY COVID-19 PCR Specimen Source NASAL ()?? 05/23/2022 21:20 COVID-19 PCR Result POSITIVE (Abnormal)?? 05/23/2022 21:20 ? Microbiology ?? Blood Culture?? Completed?? Source: Blood Body Site: ?? Collected Dt/Tm: 05/16/2022 03:49 Last Updated Dt/Tm: 05/16/2022 03:50 ?SPECIMEN DESCRIPTION : BLOOD RASPECIAL REQUESTS : NONECULTURE : NO GROWTH 5 DAYS.REPORT STATUS : FINAL 05/21/2022 Blood Culture #2?? Completed?? Source: Blood Body Site: ?? Collected Dt/Tm: 05/16/2022 03:49 Last Updated Dt/Tm: 05/16/2022 03:50 ?SPECIMEN DESCRIPTION : BLOOD RT LOWER ARMSPECIAL REQUESTS : NONECULTURE : NO GROWTH 5 DAYS.REPORT STATUS : FINAL 05/21/2022 COVID-19 (2019 Novel Coronavirus) PCR?? Completed?? Source: Nasal Body Site: Nose Collected Dt/Tm: 05/23/2022 21:20 Last Updated Dt/Tm: 05/24/2022 02:53 ? 25??minutes spent on discharge * Nissa CHRISTINA, Angelo: PERFORM Event Display: Discharge/Transfer Note Hospital Authored Date: Patient: ??JOSÉ LUIS SOUZA ? Age:??36 Years?Sex:??Female?:??1985?? Patient Information Discharge Location: S1 Primary Care Physician: Leandra Stephens MD Admit Date/Time: 05/15/22 03:02 Discharge Disposition Discharge Disposition: ?? 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 _ Discharge Medications HydrOXYzine (hydrOXYzine pamoate 25 mg oral capsule)?2?capsule?50?Milligram?By Mouth?Every 6 hours?as needed?Anxiety Naltrexone (naltrexone 50 mg oral tablet)?1?tab(s)?50?Milligram?By Mouth?Daily Olanzapine (ZyPREXA 5 mg oral tablet)?5?Milligram?1?tablet?By Mouth?Every 6 hours?as needed?Agitation Prazosin (prazosin 1 mg oral capsule)?1?Milligram?1?capsule?By Mouth?Daily at bedtime Quetiapine (SEROquel 50 mg oral tablet)?1?tab(s)?50?Milligram?By Mouth?3 times a day Trazodone (traZODone 50 mg oral tablet)?50?Milligram?1?tablet?By Mouth?Daily at bedtime Venlafaxine (venlafaxine 225 mg oral tablet, extended release)?225?Milligram?1?tablet?By Mouth?Daily ? Objective Assessment and Plan COVID-19 virus detected (U07.1):??36 years old female who was admitted to psychiatric unit with suicidal ideation??anxiety and depression,??was admitted to inpatient psychiatry??unit was found to have COVID??positive and transferred to??the medical service. ? COVID-19 virus detected (U07.1): Patient was diagnosed with COVID-19??diagnosed on 05/15/2022, completely asymptomatic ??On room air, saturating above 94%, no respiratory distress , patient has completed??isolation precaution for COVID, currently off??enhanced precaution awaiting on??psych bed availability ? Major depressive disorder ??PTSD ??TREY ??Suicide attempt One-to-one sitter in place,??suicide precautions ??Suicide precautions ordered, psychiatric consult??has been requested, patient remains suicidal and will need psych unit Disposition patient cannot leave AMA ? Position??patient will be??transferred to??aptu??medically clear ? Discharge Planning:? Vital Signs?? Temperature: 98.3 DegF (05/26/22 07:57:00) Temperature Route: Oral (05/26/22 07:57:00) Pulse Rate: 58 bpm (05/26/22 07:57:00) Respiratory Rate: 19 br/min (05/26/22 07:57:00) Systolic Blood Pressure: 110 mm Hg (05/26/22 07:57:00) Diastolic Blood Pressure: 74 mm Hg (05/26/22 07:57:00) Blood pressure sites: Arm, right (05/26/22 04:39:00) Mean Arterial Pressure: 86 mm Hg (05/26/22 07:57:00) Pulse Pressure: 36 mm Hg (05/26/22 07:57:00) Oxygen Saturation: 98 % (05/26/22 07:57:00) Mode of Delivery (Oxygen): Room air (05/26/22 07:57:00) Early Warning Score: 0 (05/26/22 07:58:00) ? . Physical Exam General: [Alert, in no acute cardiopulmonary distress.] Mental Status: [Oriented to person, place and time. Normal affect.] Head: [Normocephalic.] Eyes: [Pupils are equal, round and reactive to light. Extraocular muscles intact.] Ear, Nose and Throat: [Oropharynx clear, mucous membranes moist. Ears and nose without masses, lesions or deformities. Tympanic membranes clear bilaterally. Trachea midline.] Neck: [Supple, Full range of motion.] Respiratory: [Clear to auscultation and percussion. No wheezing, rales or rhonchi.] Cardiovascular: [Heart sounds normal. No thrills. Regular rate and rhythm, no murmurs, rubs or gallops.] Gastrointestinal: [Abdomen soft, non-tender, non-distended. Normal bowel sounds. No pulsatile mass.No hepatosplenomegaly.] Genitourinary: [No costovertebral angle tenderness.] Neurologic: [Cranial nerves II-XII grossly intact. No focal neurological deficits. Deep tendon reflexes +2 bilaterally. Flexor plantar response. Moves all extremities spontaneously. Sensation intact bilaterally.] Skin: [No rashes or lesions. No petechiae or purpura. No edema.] Musculoskeletal: [No cyanosis or clubbing. No gross deformities. Normal range of motion.] Psych, suicidal .] Pending Results COVID-19 (2019 Novel Coronavirus) PCR ordered on 05/19/2022 Post Discharge Care Discharge ?05/26/22 10:14:00 EST Home Health Face to Face ^[facility] Results Discharge Labs BLOOD COUNT & DIFF WBC 4.8 k/mm3 ()?? 05/23/2022 00:26 RBC 4.56 m/mm3 ()?? 05/23/2022 00:26 Hgb 14.2 Gm/dL ()?? 05/23/2022 00:26 Hct 42.2 % ()?? 05/23/2022 00:26 MCV 92.5 femtoliters ()?? 05/23/2022 00:26 MCH 31.1 pg ()?? 05/23/2022 00:26 MCHC 33.6 g/dL ()?? 05/23/2022 00:26 Platelet Count 150 k/mm3 ()?? 05/23/2022 00:26 RDW-SD 43.8 femtoliters ()?? 05/23/2022 00:26 MPV 11.6 femtoliters ()?? 05/23/2022 00:26 Nucleated RBC (Automated) 0.0 #/100 WBC'S ()?? 05/23/2022 00:26 Abs. NRBC 0.0 k/mm3 ()?? 05/23/2022 00:26 Abs. Neut 3.8 k/mm3 ()?? 05/16/2022 06:00 Abs. Lymph 1.1 k/mm3 ()?? 05/16/2022 06:00 Abs. [place] 0.5 k/mm3 ()?? 05/16/2022 06:00 Abs. Eo 0.0 k/mm3 ()?? 05/16/2022 06:00 Abs. Baso 0.0 k/mm3 ()?? 05/16/2022 06:00 Neut % 69.0 % ()?? 05/16/2022 06:00 Lymph % 20.3 % ()?? 05/16/2022 06:00 [place] % 9.6 % ()?? 05/16/2022 06:00 Eos % 0.2 % ()?? 05/16/2022 06:00 Baso % 0.5 % ()?? 05/16/2022 06:00 Imm Gran 0.4 % ()?? 05/16/2022 06:00 Abs. Imm Gran 0.0 k/mm3 ()?? 05/16/2022 06:00 ?? CHEM GENERAL Sodium 141 mmol/L ()?? 05/23/2022 00:26 Potassium 3.7 mmol/L ()?? 05/23/2022 00:26 Chloride 106 mmol/L ()?? 05/23/2022 00:26 Bicarbonate Level 23 mmol/L ()?? 05/23/2022 00:26 Anion Gap 12 ()?? 05/23/2022 00:26 Glucose Level 78 mg/dL ()?? 05/15/2022 06:36 BUN 4 mg/dL (Low)?? 05/23/2022 00:26 Creatinine-Blood 0.7 mg/dL ()?? 05/23/2022 00:26 Estimated GFR Creatinine 114 ML/MIN/1.73 M2 ()?? 05/23/2022 00:26 Calcium 9.2 mg/dL ()?? 05/15/2022 06:36 Magnesium 2.1 mg/dL ()?? 05/23/2022 00:26 Lactate 0.7 mmol/L ()?? 05/16/2022 06:00 ?? UA/URINALYSIS Appear/Color, Urine LIGHT YELLOW ()?? 05/16/2022 06:00 Specific [place], Urine 1.011 ()?? 05/16/2022 06:00 pH, Urine 6.0 ()?? 05/16/2022 06:00 Albumin, Urine NEGATIVE ()?? 05/16/2022 06:00 Glucose, Urine NEGATIVE ()?? 05/16/2022 06:00 Ketones, Urine NEGATIVE ()?? 05/16/2022 06:00 Bilirubin, Urine NEGATIVE ()?? 05/16/2022 06:00 Hemoglobin, Urine NEGATIVE ()?? 05/16/2022 06:00 Nitrite, Urine NEGATIVE ()?? 05/16/2022 06:00 Leukocyte, Urine 1+ (Abnormal)?? 05/16/2022 06:00 Urobilinogen NORMAL mg/dL ()?? 05/16/2022 06:00 WBC's, Urine 17 /HPF (High)?? 05/16/2022 06:00 RBC's, Urine 2 /HPF ()?? 05/16/2022 06:00 Bacteria SLIGHT HPF (Abnormal)?? 05/16/2022 06:00 Squamous Epith 5 /HPF ()?? 05/16/2022 06:00 Mucus SLIGHT /LPF ()?? 05/16/2022 06:00 ?? VIROLOGY COVID-19 PCR Specimen Source NASAL ()?? 05/23/2022 21:20 COVID-19 PCR Result POSITIVE (Abnormal)?? 05/23/2022 21:20 ? Microbiology ?? Blood Culture?? Completed?? Source: Blood Body Site: ?? Collected Dt/Tm: 05/16/2022 03:49 Last Updated Dt/Tm: 05/16/2022 03:50 ?SPECIMEN DESCRIPTION : BLOOD RASPECIAL REQUESTS : NONECULTURE : NO GROWTH 5 DAYS.REPORT STATUS : FINAL 05/21/2022 Blood Culture #2?? Completed?? Source: Blood Body Site: ?? Collected Dt/Tm: 05/16/2022 03:49 Last Updated Dt/Tm: 05/16/2022 03:50 ?SPECIMEN DESCRIPTION : BLOOD RT LOWER ARMSPECIAL REQUESTS : NONECULTURE : NO GROWTH 5 DAYS.REPORT STATUS : FINAL 05/21/2022 COVID-19 (2019 Novel Coronavirus) PCR?? Completed?? Source: Nasal Body Site: Nose Collected Dt/Tm: 05/23/2022 21:20 Last Updated Dt/Tm: 05/24/2022 02:53 ? 25??minutes spent on discharge * Angelo Azar MD: PERFORM Event Display: Discharge/Transfer Note Hospital Authored Date: Patient??seen and examined will be discharged to??[facility] once bed is available Portable XR Chest Views * [facility] , CIS S: TRANSCRIBE Sunil Quintanilla MD: SIGN Simba Good MD V: VERIFY Event Display: Result: Authored Date: Chest Portable Reason: Fever; Clinical Question(s): Pneumonia COMPARISON: None. FINDINGS: LINES AND TUBES: None. LUNGS AND PLEURA: Low lung volumes with mild basilar atelectasis. Lungs are otherwise clear with no consolidation. No pleural effusion. No pneumothorax. HEART, MEDIASTINUM AND TERESA: Heart is normal in size. Normal mediastinal and hilar contour. BONES AND SOFT TISSUES: No acute abnormality. IMPRESSION: No acute abnormality. I have personally reviewed the images and I agree with this report. WSN: [id number] Ordering Physician: Jessee Benitez Dictated By: Sunil Quintanilla MD Dictated Date/Time: 05/16/22 8:29 am Reviewed By: Simba Good MD, V Signed By: Simba Good MD, V Signed Date/Time: 05/16/22 8:34 am Transcribed By: RON Transcribed Date/Time: 05/16/22 8:28 am Patient Care team information Care Team Personnel Name: Milena Stratton RN Position: [facility] SN RN Member Role: Primary Care Nurse Name: Sarah Nolen RN Position: S RN Member Role: Primary Care Nurse Name: Tiana Chino RN Position: S RN Member Role: Primary Care Nurse Name: Natividad Berry RN Position: S RN Member Role: Primary Care Nurse Name: Ana Ozuna Position: S RN Member Role: Primary Care Nurse Name: Traci Lennon RN Position: S RN Member Role: Primary Care Nurse Name: Hortensia Rose Position: [facility] RN Member Role: Primary Care Nurse Name: Leandra Stephens MD Position: [facility] Physician (General Medicine) Member Role: PCP Address: Address: [address] [place] [phone] [place] Name: Leatha Chase RN Position: [facility] RN Member Role: Primary Care Nurse Name: Jeremie Fernandez RN Position: [facility] ED RN W/OE and Tasks Member Role: Primary Care Nurse Name: Nae Kamara RN Position: [facility] RN Member Role: Primary Care Nurse Name: Gala Schafer RN Position: [facility] RN Member Role: Primary Care Nurse Name: Moon Mallory RN Position: [facility] RN Member Role: Primary Care Nurse Name: Norman Sanchez RN Position: [facility] RN Member Role: Primary Care Nurse Name: Gaby Sloan RN Position: [facility] RN Supv Member Role: Primary Care Nurse Name: Ravi Hines RN Position: [facility] RN Member Role: Primary Care Nurse Name: Danni Garcias Position: [facility] Member Role: Info System Support1 Address: Address: [address] [place] [phone] [place] Name: Roxann Patel RN Position: [facility] RN Member Role: Primary Care Nurse Name: Nancy Souza RN Position: [facility] Hospital Disaster Recovery Analyst Member Role: Primary Care Nurse Care Team Related Persons Name: RICK SOUZA Address: home [address] [place] [address] Name: MICHAEL SOUZA Address: home [address] [place] [address]
[2022-07-10 21:09] VITALS: BP 126/74; PULSE 73; RESP 18; TEMP 36.3; O2SAT 100
[2022-07-10 22:35] VITALS: BMI 35.9
[2022-07-11 00:33] VITALS: BP 103/74; PULSE 79
[2022-07-11] MEDS: traZODone HCL 50 MG TABLET PO ×3 (00:37→21:46)
[2022-07-11] MEDS: Prazosin HCL 1 MG CAPSULE 2 MG PO (00:37)
[2022-07-11] MEDS: hydrOXYzine HCL 25 MG TABLET PO ×3 (00:37→17:26)
--- NOTE | 2022-07-11 03:26 | PC.ADMIT ---
CV signed upon admission. patient was a referral from the crisis team at [facility]. nurse to nurse and collateral information obtained prior to admission. upon arrival was tearful, cooperative but endorsing + SI thinking as well as intrusive self harm thoughts. patient reported recent HX of tying pillow cases around her neck at home as an SI attempt and reported ''it made me pass out but I woke up the next day'' reported she had told this to her therapist and was referred to the ER for assessment. patient continues to endorse SI thinking. patient with recent HX of superficial cutting. on R wrist (one cut) and right thigh (3 cuts). no medical interventions required. patient reports HX of self harm when on inpatient units reporting that she has used ''the tops of water bottles, OT projects, water pitchers'' and SI attempts by ''not taking my meds and stock piling them to OD or using hospital linen to tie around my neck'' patient reports that when she is psychiatrically hospitalized ''I am often on 1:1'' ''I don't like it'' patient was unable to verbalize a safety plan, endorsed SI/self harm thinking and reported she was ''unable to let staff know if she was experiencing SI or harm thinking'' due to HX and statements, placed on 1:1 status. 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 + trauma HX. no drug/alcohol issues. reports being on naltrexone for ''cutting behaviors'' multiple hospitalizations in the past. reports + outpatient providers as well as home health services. medical HX of gastric bypass, gerd and HTN. medication reconciliation done. oriented to unit. safety tool completed, treatment plan initiated.
[2022-07-11] MEDS: hydrOXYzine HCL 50 MG TABLET PO ×3 (05:08→20:26)
[2022-07-11 08:00] VITALS: BP 114/61; PULSE 79; TEMP 36.6; O2SAT 96
[2022-07-11] MEDS: Venlafaxine HCl ER 75 MG CAP.ER.24H 225 MG PO (09:40)
[2022-07-11] MEDS: Naltrexone HCl 50 MG TABLET PO (09:42)
[2022-07-11] MEDS: QUEtiapine Fumarate 50 MG TABLET PO ×2 (09:43→20:27)
[2022-07-11 09:44] LABS: Estimated Average Glucose 97 mg/dL
[2022-07-11] MEDS: OLANZapine 5 MG TABLET PO ×2 (09:47→17:26)
[2022-07-11 10:16] LABS: Alanine Aminotransferase 36 U/L (0-31); Albumin Level 4.1 g/dL (3.5-5.0); Alkaline Phosphatase 89 U/L (39-117); Anion Gap 11 (12-20); Aspartate Amino Transferase 29 U/L (5-31); Bilirubin Total 0.5 mg/dL (0.0-1.0); Blood Urea Nitrogen 7 mg/dL (9-16); Calcium 9.3 mg/dL (8.4-10.2); Carbon Dioxide 28 mmol/L (22-29); Chloride 106 mmol/L (96-108); Cholesterol 191 mg/dL; Creatinine Clr Calc Pharmacy 97.7; Estimated Glomerular Filt Rate > 60; Glucose Fasting 83 mg/dL (60-99); HDL Cholesterol 43 mg/dL; LDL Cholesterol Calculated 116 mg/dl; Potassium 4.1 mmol/L (3.3-5.1); Sodium 141 mmol/L (135-145); Total Protein 6.4 g/dL (6.5-8.0); Triglycerides 164 mg/dL
--- NOTE | 2022-07-11 12:36 | HO.PM.IMCN ---
History of Present Illness Data of Consult Service Date: 07/11/22 Primary Care Provider: Elana Stephens MD HPI Reason for consult: Admission H&P Pt is a 36-year-old female with a PMH significant for depression/anxiety with SI, PTSD, borderline personality disorder, and history of ECT who is admitted to third-floor psych for SI with plan of overdosing on her medications. Medical consult for admission H&P. Patient states she has had chronic lightheadedness/dizziness and feelings of a racing heart whenever she has a panic attack. Also complains of mild headaches past few weeks for which she has taken Tylenol to good effect. Otherwise she has no acute medical complaints. Denies chest pain/pressure. No shortness of breath. Denies fever, chills, nausea, vomiting, diarrhea, abdominal pain. Currently she has no headache and is not lightheaded or dizzy or having palpitations. Review of Systems Review of Systems: Chronic lightheadedness, dizziness, and racing heart associated with panic attacks Headaches x the past few weeks, currently none Patient has no acute medical complaints at this time Yes all other systems are reviewed and are negative [facility] Medical History TREY (generalized anxiety disorder) GERD (gastroesophageal reflux disease) HTN (hypertension) MDD (major depressive disorder), recurrent severe, without psychosis MARIA TERESA (obstructive sleep apnea) Post traumatic stress disorder (PTSD) Family History Mother Heart disease Surgical History H/O gastric bypass Hx of cholecystectomy Social History Household Members: Children Household Members Other:: 17 yo daughter Housing: Apartment Do you presently have visiting nurse or other home services: Yes Alcohol intake: current Alcohol intake frequency: holidays/special occasions only Patient Tobacco Use Status: Never used Tobacco Use of substances other than those prescribed or required for medical reasons: No Currently Displaying Signs/Symptoms of Drug Intoxication Withdrawal: No Have you been hit, kicked, punched, or otherwise hurt by someone within the past year? If so, by whom?: No Do you feel safe in your current relationship?: Yes Is there a partner from a previous relationship who is making you feel unsafe now?: No Are you made to feel afraid or neglected: No Spiritual Healthcare Practices: none identified Confucianism Healthcare Practices: none identified Cultural Healthcare Practices: none identified Advance Directives: No Advance Directives Information Provided: No Suicidal Behavior: History of suicide attemps and Self-injurious behavior Current/Past Psychiatric Disorders: Cluster personality disorder, Chronic mental illess, Mood disorder, Psychotic disorder and PTSD Bae[place] Symptoms: Anxiety, Hopelessness and Impulsivity Access to Firearms: No Do you have thoughts of harming others: None Do you have a plan to hurt others: No Plan Recently lost weight without trying: No How much weight loss: Not applicable Eating poorly because of decreased appetite: No Nutrition screen score: 0 Nutrition Risks: No Nutritional Risk Patient : No : No Poor oral hygiene: No service: No Sexual orientation: Don't Know Meds Allergies Allergy/AdvReac Type Severity Reaction Status Date / Time coconut Allergy Severe Anaphylaxis Verified 03/14/21 22:10 nut - unspecified [NUTS] Allergy Severe HIVES, Verified 03/14/21 23:05 DIFF BREATHING, THROAT SWELLS peanut Allergy Severe Anaphylaxis Verified 03/14/21 22:10 Active Medications: Current Medications Acetaminophen (Acetaminophen 325 Mg Tablet) 650 mg PO Q6H PRN PRN Reason: Headache/Pain Mild Scale (1-3) Al Hydroxide/Mg Hydroxide (Magnesium Hydrox/Alum Hydrox 30 Ml Oral.Susp) 30 ml PO Q6H PRN PRN Reason: Heartburn/Nausea Diphenhydramine HCl (Diphenhydramine Hcl 25 Mg Capsule) 50 mg PO Q6H PRN PRN Reason: Agitation Hydroxyzine HCl (Hydroxyzine Hcl 25 Mg Tablet) 25 mg PO Q6H PRN PRN Reason: Anxiety Last Admin: 07/11/22 09:47 Dose: 25 mg Hydroxyzine HCl (Hydroxyzine Hcl 50 Mg Tablet) 50 mg PO Q6H PRN PRN Reason: Agitation Last Admin: 07/11/22 12:05 Dose: 50 mg Hydroxyzine HCl (Hydroxyzine Hcl 10 Mg Tablet) 10 mg PO QID PRN PRN Reason: Anxiety Magnesium Hydroxide (Milk Of Magnesia 30 Ml Oral.Susp) 30 ml PO DAILY PRN PRN Reason: Constipation Naltrexone HCl (Naltrexone Hcl 50 Mg Tablet) 50 mg PO DAILY [facility] Last Admin: 07/11/22 09:42 Dose: 50 mg Nicotine Polacrilex (Nicotine Polacrilex 2 Mg Gum) 4 mg BUCCAL Q2H PRN PRN Reason: Nicotine Cravings Olanzapine (Olanzapine 5 Mg Tablet) 5 mg PO Q6H PRN PRN Reason: Agitation Last Admin: 07/11/22 09:47 Dose: 5 mg Prazosin HCl (Prazosin Hcl 1 Mg Capsule) 2 mg PO BEDTIME JEFFREY; Protocol Last Admin: 07/11/22 00:37 Dose: 2 mg Quetiapine Fumarate (Quetiapine Fumarate 50 Mg Tablet) 50 mg PO BID [facility] Last Admin: 07/11/22 09:43 Dose: 50 mg Quetiapine Fumarate (Quetiapine Fumarate 100 Mg Tablet) 100 mg PO BEDTIME JEFFREY Trazodone HCl (Trazodone Hcl 50 Mg Tablet) 50 mg PO BEDTIME MRX1 PRN PRN Reason: Insomnia Trazodone HCl (Trazodone Hcl 50 Mg Tablet) 50 mg PO BEDTIME [facility] Last Admin: 07/11/22 00:37 Dose: 50 mg Venlafaxine HCl (Venlafaxine Hcl Er 75 Mg Cap.Er.24h) 225 mg PO DAILY [facility] Last Admin: 07/11/22 09:40 Dose: 225 mg Zolpidem Tartrate (Zolpidem Tartrate 5 Mg Tablet) 5 mg PO BEDTIME PRN PRN Reason: Sleep Home Medications Medication Instructions Recorded Confirmed Last Taken Type Benadryl 50 mg PO Q6H PRN Agitation 07/10/22 07/10/22 Unknown History hydroxyzine HCl 50 mg PO Q6H PRN Agitation 07/10/22 07/10/22 07/10/22 15:00 History hydroxyzine pamoate 10 mg PO QID PRN Anxiety 07/10/22 07/10/22 Unknown History naltrexone 50 mg PO DAILY 07/10/22 07/10/22 07/10/22 10:00 History olanzapine 5 mg PO Q6H PRN Agitation 07/10/22 07/10/22 Unknown History prazosin 2 mg capsule 2 mg PO BEDTIME 07/10/22 07/10/22 07/09/22 20:30 History quetiapine 100 mg PO BEDTIME 07/10/22 07/10/22 07/09/22 21:00 History quetiapine 50 mg tablet 50 mg PO BID 07/10/22 07/10/22 07/10/22 15:00 History trazodone 50 mg tablet 50 mg PO BEDTIME 07/10/22 07/10/22 07/09/22 21:00 History venlafaxine 225 mg PO DAILY 07/10/22 07/10/22 07/10/22 10:00 History zolpidem 5 mg PO BEDTIME PRN Sleep 07/10/22 07/10/22 07/09/22 History Physical Exam Vital Signs and Narrative: Vital Signs: Last Vital Signs Temp 97.8 F 07/11/22 08:00 Pulse 79 07/11/22 08:00 Resp 18 07/10/22 21:09 BP 114/61 07/11/22 08:00 Pulse Ox 96 07/11/22 08:00 O2 Del Method Room Air 07/11/22 08:00 BMI result Body Mass Index 35.9 General: AOx3, no acute distress Resp: CTA bilaterally CVS: S1, S2, RRR GI: +BS, NT, no distention Skin: No rash Neuro: Cranial nerves II-XII grossly intact bilaterally. Motor grossly intact bilaterally Extremities: No edema Psych: Appropriate affect Results Labs 07/11/22 09:02 Labs: Laboratory Results - last 24 hr 07/11/22 07/11/22 09:02 09:02 Anion Gap 11 L Estim Creat Clear Calc 97.7 Estimated GFR > 60 Fasting Glucose 83 Estimat Average Glucose 97 Hemoglobin A1c % 5.0 Calcium 9.3 Total Bilirubin 0.5 AST 29 ALT 36 H Alkaline Phosphatase 89 Total Protein 6.4 L Albumin 4.1 Triglycerides 164 Cholesterol 191 LDL Cholesterol, Calc 116 HDL Cholesterol 43 Assessment and Plan (1) Routine history and physical examination of adult: Status: Acute Plan Pt is a 36-year-old female with a PMH significant for depression/anxiety with SI, PTSD, borderline personality disorder, and history of ECT who is admitted to third-floor psych for SI with plan of overdosing on her medications. Medical consult for admission H&P. Patient states she has had chronic lightheadedness/dizziness and feelings of a racing heart whenever she has a panic attack. Also complains of mild headaches past few weeks for which she has taken Tylenol to good effect. Otherwise she has no acute medical complaints. Mood disorder Plan as per Psychiatry Panic attacks Plan as per Psychiatry Headaches Acetaminophen for pain management Thank you for allowing us to participate in the care of this patient. Signing off at this time. Please let us know if there is are any acute complaints or questions. Time Spent With Patient Time: Total time managing care of this patient today ____ minutes.
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
[2022-07-11 20:20] VITALS: BP 94/58; PULSE 72; RESP 16; TEMP 36.4; O2SAT 97
[2022-07-11] MEDS: diphenhydrAMINE HCL 25 MG CAPSULE 50 MG PO (20:26)
[2022-07-11 20:52] VITALS: BP 113/68; PULSE 73
[2022-07-11] MEDS: Prazosin HCL 1 MG CAPSULE 3 MG PO (20:52)
[2022-07-11] MEDS: QUEtiapine Fumarate 100 MG TABLET PO (20:53)
[2022-07-11] MEDS: Zolpidem Tartrate 5 MG TABLET PO (21:46)
--- NOTE | 2022-07-12 09:56 | P.PNPSI_ITS ---
Subjective Subjective Date of Service: 07/12/22 Reason For Visit: MDD recurrent episode Subjective Notes: Conditional Voluntary Interim History: Pt reports that she continues to struggle with suicidal ideation. She reports fair sleep. She reports urges to engage in self harm. No identify trigger. Pt has chronic on and of, SI and hx of SIB. Pt reports tolerating medications well. She continues on 1 to 1 due to self harm. Medication Compliance: Yes Review of Systems Review of Systems Chronic lightheadedness, dizziness, and racing heart associated with panic a ttacks Headaches x the past few weeks, currently none Patient has no acute medical complaints at this time Yes all other systems are reviewed and are negative Mental Status Exam Mental Status Exam Narrative: Appearance:casually groomed, fair hygiene in NAD Behavior: cooperative Psychomotor: no agitation or retardation noted Speech: clear, normal rate/rhythm/volume, spontaneous TP: linear TC: no s/s of psychosis, feeling hopeless. Mood: depressed Affect: blunted SI: none HI: none VH/AH: none Delusions: none Insight/judgment: fair x 2. Memory/cog: alert, oriented x 3. grossly intact to conversational testing. Diagnostics Vital Signs (24Hr): Vital Signs - 24 hr 07/11/22 20:20 07/11/22 20:52 Temperature 97.6 F Pulse Rate 72 73 Respiratory Rate 16 Blood Pressure 94/58 L 113/68 Pulse Oximetry 97 Oxygen Delivery Method Room Air BMI result Body Mass Index 35.9 Labs 07/11/22 09:02 Labs: Laboratory Results - last 48 hr 07/11/22 07/11/22 09:02 09:02 Sodium 141 Potassium 4.1 Chloride 106 Carbon Dioxide 28 Anion Gap 11 L BUN 7 L Creatinine 0.81 Estim Creat Clear Calc 97.7 Estimated GFR > 60 Fasting Glucose 83 Estimat Average Glucose 97 Hemoglobin A1c % 5.0 Calcium 9.3 Total Bilirubin 0.5 AST 29 ALT 36 H Alkaline Phosphatase 89 Total Protein 6.4 L Albumin 4.1 Triglycerides 164 Cholesterol 191 LDL Cholesterol, Calc 116 HDL Cholesterol 43 Medications Medications Current Medications Acetaminophen (Acetaminophen 325 Mg Tablet) 650 mg PO Q6H PRN PRN Reason: Headache/Pain Mild Scale (1-3) Al Hydroxide/Mg Hydroxide (Magnesium Hydrox/Alum Hydrox 30 Ml Oral.Susp) 30 ml PO Q6H PRN PRN Reason: Heartburn/Nausea Diphenhydramine HCl (Diphenhydramine Hcl 25 Mg Capsule) 50 mg PO Q6H PRN PRN Reason: Agitation Last Admin: 07/11/22 20:26 Dose: 50 mg Magnesium Hydroxide (Milk Of Magnesia 30 Ml Oral.Susp) 30 ml PO DAILY PRN PRN Reason: Constipation Naltrexone HCl (Naltrexone Hcl 50 Mg Tablet) 50 mg PO DAILY JEFFREY Last Admin: 07/11/22 09:42 Dose: 50 mg Nicotine Polacrilex (Nicotine Polacrilex 2 Mg Gum) 4 mg BUCCAL Q2H PRN PRN Reason: Nicotine Cravings Olanzapine (Olanzapine 5 Mg Tablet) 5 mg PO Q6H PRN PRN Reason: Agitation Last Admin: 07/11/22 17:26 Dose: 5 mg Prazosin HCl (Prazosin Hcl 1 Mg Capsule) 3 mg PO BEDTIME JEFFREY; Protocol Last Admin: 07/11/22 20:52 Dose: 3 mg Quetiapine Fumarate (Quetiapine Fumarate 50 Mg Tablet) 50 mg PO BID JEFFREY Last Admin: 07/11/22 20:27 Dose: 50 mg Quetiapine Fumarate (Quetiapine Fumarate 100 Mg Tablet) 100 mg PO BEDTIME JEFFREY Last Admin: 07/11/22 20:53 Dose: 100 mg Trazodone HCl (Trazodone Hcl 50 Mg Tablet) 50 mg PO BEDTIME JEFFREY Last Admin: 07/11/22 20:25 Dose: 50 mg Trazodone HCl (Trazodone Hcl 50 Mg Tablet) 50 mg PO BEDTIME PRN PRN Reason: Insomnia Venlafaxine HCl (Venlafaxine Hcl Er 75 Mg Cap.Er.24h) 225 mg PO DAILY [facility] Last Admin: 07/11/22 09:40 Dose: 225 mg Zolpidem Tartrate (Zolpidem Tartrate 5 Mg Tablet) 5 mg PO BEDTIME PRN PRN Reason: Sleep Last Admin: 07/11/22 21:46 Dose: 5 mg Allergies Allergies Allergy/AdvReac Type Severity Reaction Status Date / Time coconut Allergy Severe Anaphylaxis Verified 03/14/21 22:10 nut - unspecified [NUTS] Allergy Severe HIVES, Verified 03/14/21 23:05 DIFF BREATHING, THROAT SWELLS peanut Allergy Severe Anaphylaxis Verified 03/14/21 22:10 Assessment & Plan Assessment & Plan (1) MDD (major depressive disorder), recurrent severe, without psychosis: Status: Acute Code(s): F33.2 - Major depressive disorder, recurrent severe without psychotic features (2) TREY (generalized anxiety disorder): Status: Acute Code(s): F41.1 - Generalized anxiety disorder Plan Pt is a 36-year-old female with a PMH significant for depression/anxiety with SI, PTSD, borderline personality disorder, and history of ECT who is admitted to third-floor psych for SI with plan of overdosing on her medications. Medical consult for admission H&P. Patient states she has had chronic lightheadedness/dizziness and feelings of a racing heart whenever she has a panic attack. Also complains of mild headaches past few weeks for which she has taken Tylenol to good effect. Otherwise she has no acute medical complaints. PSYCH: 07/12 continue tx. Reason for contiued inpatient stay Substantial Risk for: harm to self Time Spent With Patient Time: Total time managing care of this patient today ____ minutes.
[2022-07-12] MEDS: Naltrexone HCl 50 MG TABLET PO (10:07)
[2022-07-12] MEDS: Venlafaxine HCl ER 75 MG CAP.ER.24H 225 MG PO (10:08)
[2022-07-12] MEDS: QUEtiapine Fumarate 50 MG TABLET PO ×2 (10:08→20:57)
[2022-07-12 10:12] VITALS: BP 102/67; PULSE 99; RESP 18; TEMP 36.4; O2SAT 97
[2022-07-12] MEDS: OLANZapine 5 MG TABLET PO ×2 (14:17→21:51)
[2022-07-12] MEDS: hydrOXYzine HCL 50 MG TABLET PO (19:02)
[2022-07-12] MEDS: QUEtiapine Fumarate 100 MG TABLET PO (20:58)
[2022-07-12] MEDS: traZODone HCL 50 MG TABLET PO ×2 (20:58→21:47)
[2022-07-12] MEDS: Prazosin HCL 1 MG CAPSULE 3 MG PO (20:58)
[2022-07-12] MEDS: Zolpidem Tartrate 5 MG TABLET PO (20:59)
[2022-07-12 21:30] VITALS: BP 118/79; PULSE 81; RESP 16; TEMP 36.3; O2SAT 98
[2022-07-13 09:00] VITALS: BP 115/76; PULSE 81; RESP 18; TEMP 36.6; O2SAT 97
[2022-07-13] MEDS: QUEtiapine Fumarate 50 MG TABLET PO ×2 (09:00→22:04)
[2022-07-13] MEDS: Naltrexone HCl 50 MG TABLET PO (09:00)
[2022-07-13] MEDS: Venlafaxine HCl ER 75 MG CAP.ER.24H 225 MG PO (09:00)
[2022-07-13] MEDS: OLANZapine 5 MG TABLET PO (13:36)
--- NOTE | 2022-07-13 13:44 | P.PNPSI_ITS ---
Subjective Subjective Date of Service: 07/13/22 Reason For Visit: MDD recurrent episode Subjective Notes: Conditional Voluntary Interim History: No significant change today. Pt continues to report that she continues to struggle with suicidal ideation. She reports fair sleep. She reports urges to engage in self harm. No identify trigger. Pt has chronic on and of, SI and hx of SIB. Pt reports tolerating medications well. She continues on 1 to 1 due to self harm . Review of Systems Review of Systems Chronic lightheadedness, dizziness, and racing heart associated with panic attacks Headaches x the past few weeks, currently none Patient has no acute medical complaints at this time Yes all other systems are reviewed and are negative Mental Status Exam Mental Status Exam Narrative: Appearance:casually groomed, fair hygiene in NAD Behavior: cooperative Psychomotor: no agitation or retardation noted Speech: clear, normal rate/rhythm/volume, spontaneous TP: linear TC: no s/s of psychosis, feeling hopeless. Mood: depressed Affect: blunted SI: none HI: none VH/AH: none Delusions: none Insight/judgment: fair x 2. Memory/cog: alert, oriented x 3. grossly intact to conversational testing. Diagnostics Vital Signs (24Hr): Vital Signs - 24 hr 07/12/22 21:30 07/13/22 09:00 Temperature 97.4 F 97.8 F Pulse Rate 81 81 Respiratory Rate 16 18 Blood Pressure 118/79 115/76 Pulse Oximetry 98 97 Oxygen Delivery Method Room Air Room Air BMI result Body Mass Index 35.9 Labs 07/11/22 09:02 Medications Medications Current Medications Acetaminophen (Acetaminophen 325 Mg Tablet) 650 mg PO Q6H PRN PRN Reason: Headache/Pain Mild Scale (1-3) Al Hydroxide/Mg Hydroxide (Magnesium Hydrox/Alum Hydrox 30 Ml Oral.Susp) 30 ml PO Q6H PRN PRN Reason: Heartburn/Nausea Hydroxyzine HCl (Hydroxyzine Hcl 50 Mg Tablet) 50 mg PO Q6H PRN PRN Reason: Anxiety Last Admin: 07/12/22 19:02 Dose: 50 mg Magnesium Hydroxide (Milk Of Magnesia 30 Ml Oral.Susp) 30 ml PO DAILY PRN PRN Reason: Constipation Naltrexone HCl (Naltrexone Hcl 50 Mg Tablet) 50 mg PO DAILY JEFFREY Last Admin: 07/13/22 09:00 Dose: 50 mg Nicotine Polacrilex (Nicotine Polacrilex 2 Mg Gum) 4 mg BUCCAL Q2H PRN PRN Reason: Nicotine Cravings Olanzapine (Olanzapine 5 Mg Tablet) 5 mg PO Q6H PRN PRN Reason: Agitation Last Admin: 07/13/22 13:36 Dose: 5 mg Prazosin HCl (Prazosin Hcl 1 Mg Capsule) 3 mg PO BEDTIME JEFFREY; Protocol Last Admin: 07/12/22 20:58 Dose: 3 mg Quetiapine Fumarate (Quetiapine Fumarate 50 Mg Tablet) 50 mg PO BID JEFFREY Last Admin: 07/13/22 09:00 Dose: 50 mg Quetiapine Fumarate (Quetiapine Fumarate 100 Mg Tablet) 100 mg PO BEDTIME JEFFREY Last Admin: 07/12/22 20:58 Dose: 100 mg Trazodone HCl (Trazodone Hcl 50 Mg Tablet) 50 mg PO BEDTIME JEFFREY Last Admin: 07/12/22 20:58 Dose: 50 mg Trazodone HCl (Trazodone Hcl 50 Mg Tablet) 50 mg PO BEDTIME PRN PRN Reason: Insomnia Last Admin: 07/12/22 21:47 Dose: 50 mg Venlafaxine HCl (Venlafaxine Hcl Er 75 Mg Cap.Er.24h) 225 mg PO DAILY [facility] Last Admin: 07/13/22 09:00 Dose: 225 mg Zolpidem Tartrate (Zolpidem Tartrate 5 Mg Tablet) 5 mg PO BEDTIME PRN PRN Reason: Sleep Last Admin: 07/12/22 20:59 Dose: 5 mg Allergies Allergies Allergy/AdvReac Type Severity Reaction Status Date / Time coconut Allergy Severe Anaphylaxis Verified 03/14/21 22:10 nut - unspecified [NUTS] Allergy Severe HIVES, Verified 03/14/21 23:05 DIFF BREATHING, THROAT SWELLS peanut Allergy Severe Anaphylaxis Verified 03/14/21 22:10 Assessment & Plan Assessment & Plan (1) MDD (major depressive disorder), recurrent severe, without psychosis: Status: Acute Code(s): F33.2 - Major depressive disorder, recurrent severe without psychotic features (2) TREY (generalized anxiety disorder): Status: Acute Code(s): F41.1 - Generalized anxiety disorder Plan Pt is a 36-year-old female with a PMH significant for depression/anxiety with SI, PTSD, borderline personality disorder, and history of ECT who is admitted to third-floor psych for SI with plan of overdosing on her medications. Medical consult for admission H&P. Patient states she has had chronic lightheadedness/dizziness and feelings of a racing heart whenever she has a panic attack. Also complains of mild headaches past few weeks for which she has taken Tylenol to good effect. Otherwise she has no acute medical complaints. PSYCH 07/12 continue tx 07/13 continue tx. Reason for contiued inpatient stay Substantial Risk for: harm to self Time Spent With Patient Time: Total time managing care of this patient today ____ minutes.
[2022-07-13] MEDS: hydrOXYzine HCL 50 MG TABLET PO (18:33)
[2022-07-13 20:05] VITALS: BP 102/60; PULSE 72; RESP 18; TEMP 36.5; O2SAT 97
[2022-07-13] MEDS: Prazosin HCL 1 MG CAPSULE 3 MG PO (22:03)
[2022-07-13] MEDS: QUEtiapine Fumarate 100 MG TABLET PO (22:04)
[2022-07-13] MEDS: traZODone HCL 50 MG TABLET PO (22:04)
[2022-07-13] MEDS: Milk of Magnesia 30 ML ORAL.SUSP PO (22:09)
[2022-07-14] MEDS: OLANZapine 5 MG TABLET PO ×2 (01:21→08:07)
[2022-07-14] MEDS: hydrOXYzine HCL 50 MG TABLET PO ×2 (01:21→13:06)
--- NOTE | 2022-07-14 01:25 | PC.NURSE ---
Angelica awoke at approximately 0115 with c/o night faith dispite having taken Prazosin at HS. patient tearful when speaking with RN. Angelica was given Zyprexa and atarax with pending effects
[2022-07-14 08:00] VITALS: BP 103/66; PULSE 74; TEMP 36.6; O2SAT 97
[2022-07-14] MEDS: Venlafaxine HCl ER 75 MG CAP.ER.24H 225 MG PO (08:05)
[2022-07-14] MEDS: QUEtiapine Fumarate 50 MG TABLET PO ×2 (08:07→15:33)
[2022-07-14] MEDS: Naltrexone HCl 50 MG TABLET PO (08:07)
[2022-07-14 08:48] LABS: Amphetamine Screen Urine Not Detected (Not Detect); Barbiturates, Urine Not Detected (Not Detect); Benzodiazepines Screen Urine Not Detected (Not Detect); Cannabinoid Screen Urine Not Detected (Not Detect); Cocaine Screen Urine Not Detected (Not Detect); Fentanyl, urine POSITIVE (Not Detect); Opiate Screen Urine Not Detected (Not Detect); Phencyclidine Screen Urine Not Detected (Not Detect)
--- NOTE | 2022-07-14 14:21 | HO.PSYCHPN ---
Subjective Subjective Date of Service: 07/14/22 Reason For Visit: MDD recurrent episode Interim History: seen with CRYSTAL saba. calm, cooperative. easily roused from sleep. on 1:1. states she is feeling less spacey than thursday, and her JONES is resolved. continues to report SI with plan and intent. discuss medications changes at length, meds Hx reviewed. has been on numerous SSRI trials, also 2 SNRIs, many neuroleptics. no h/o evidence-based mood stabilizer. agrees to trial of VPA. educated re the utility of therapy for PTSD. per staff, remains on 1:1. decr appetite in eves. sleeping and napping. ruminating on traumas. +SI, with intent. able to remain safe with 1:1. attending art group. c/o nightmares last evening. Mental Status Exam Mental Status Exam Narrative: A&O. Somewhat disheveled appearance, in casual attire. Moderate eye contact, attentive. No Tics or Tremors. No abnormal involuntary movements. cooperative. Non-pressured speech, non-spontaneous with regular rate and rhythm, quiet volume, decreased prosody. No prolonged speech latency or dysarthria. Mood is ?depressed,? affect is constricted, hypo-intense, non-labile. Endorses SI. no HI/AVH expressed. No known cognitive or memory impairment. Insight/ Judgment limited but adequate. Diagnostics Vital Signs (24Hr): Vital Signs - 24 hr 07/13/22 20:05 07/14/22 08:00 Temperature 97.7 F 98 F Pulse Rate 72 74 Respiratory Rate 18 Blood Pressure 102/60 103/66 Pulse Oximetry 97 97 Oxygen Delivery Method Room Air Room Air BMI result Body Mass Index 35.9 Labs 07/11/22 09:02 Labs: Laboratory Results - last 48 hr 07/14/22 08:04 Urine Opiates Screen Not Detected Urine Fentanyl Screen POSITIVE H Ur Barbiturates Screen Not Detected Ur Phencyclidine Scrn Not Detected Ur Amphetamines Screen Not Detected U Benzodiazepines Scrn Not Detected Urine Cocaine Screen Not Detected U Marijuana (THC) Screen Not Detected Medications Medications Current Medications Acetaminophen (Acetaminophen 325 Mg Tablet) 650 mg PO Q6H PRN PRN Reason: Headache/Pain Mild Scale (1-3) Al Hydroxide/Mg Hydroxide (Magnesium Hydrox/Alum Hydrox 30 Ml Oral.Susp) 30 ml PO Q6H PRN PRN Reason: Heartburn/Nausea Divalproex Sodium (Divalproex Sodium 250 Mg Tablet.Dr) 250 mg PO TID JEFFREY Hydroxyzine HCl (Hydroxyzine Hcl 50 Mg Tablet) 50 mg PO Q6H PRN PRN Reason: Anxiety Last Admin: 07/14/22 13:06 Dose: 50 mg Magnesium Hydroxide (Milk Of Magnesia 30 Ml Oral.Susp) 30 ml PO DAILY PRN PRN Reason: Constipation Last Admin: 07/13/22 22:09 Dose: 30 ml Naltrexone HCl (Naltrexone Hcl 50 Mg Tablet) 50 mg PO DAILY JEFFREY Last Admin: 07/14/22 08:07 Dose: 50 mg Nicotine Polacrilex (Nicotine Polacrilex 2 Mg Gum) 4 mg BUCCAL Q2H PRN PRN Reason: Nicotine Cravings Olanzapine (Olanzapine 5 Mg Tablet) 5 mg PO Q6H PRN PRN Reason: Agitation Last Admin: 07/14/22 08:07 Dose: 5 mg Prazosin HCl (Prazosin Hcl 1 Mg Capsule) 3 mg PO BEDTIME JEFFREY; Protocol Last Admin: 07/13/22 22:03 Dose: 3 mg Quetiapine Fumarate (Quetiapine Fumarate 100 Mg Tablet) 100 mg PO BEDTIME JEFFREY Last Admin: 07/13/22 22:04 Dose: 100 mg Quetiapine Fumarate (Quetiapine Fumarate 50 Mg Tablet) 50 mg PO BID@0900,1500 JEFFREY Trazodone HCl (Trazodone Hcl 50 Mg Tablet) 50 mg PO BEDTIME PRN PRN Reason: Insomnia Last Admin: 07/12/22 21:47 Dose: 50 mg Trazodone HCl (Trazodone Hcl 100 Mg Tablet) 100 mg PO BEDTIME JEFFREY Venlafaxine HCl (Venlafaxine Hcl Er 75 Mg Cap.Er.24h) 225 mg PO DAILY JEFFREY Last Admin: 07/14/22 08:05 Dose: 225 mg Zolpidem Tartrate (Zolpidem Tartrate 5 Mg Tablet) 5 mg PO BEDTIME PRN PRN Reason: Sleep Last Admin: 07/12/22 20:59 Dose: 5 mg Allergies Allergies Allergy/AdvReac Type Severity Reaction Status Date / Time coconut Allergy Severe Anaphylaxis Verified 03/14/21 22:10 nut - unspecified [NUTS] Allergy Severe HIVES, Verified 03/14/21 23:05 DIFF BREATHING, THROAT SWELLS peanut Allergy Severe Anaphylaxis Verified 03/14/21 22:10 Assessment & Plan Assessment & Plan (1) MDD (major depressive disorder), recurrent severe, without psychosis: Status: Acute Code(s): F33.2 - Major depressive disorder, recurrent severe without psychotic features (2) TREY (generalized anxiety disorder): Status: Acute Code(s): F41.1 - Generalized anxiety disorder Plan Pt is a 36-year-old female with a PMH significant for depression/anxiety with SI, PTSD, borderline personality disorder, and history of ECT who is admitted to third-floor psych for SI with plan of overdosing on her medications. Medical consult for admission H&P. Patient states she has had chronic lightheadedness/dizziness and feelings of a racing heart whenever she has a panic attack. Also complains of mild headaches past few weeks for which she has taken Tylenol to good effect. Otherwise she has no acute medical complaints. 07/11: increase HS prazosin to 3 mg.? titrate as indicated. otherwise continue home medications regimen. 07/12: continue tx 07/13: continue tx. 07/14: remains +SI. little change in presentation. numerous SSRI trials, 2 SNRI trials, numerous neuroleptic trials. no h/o evidence-based mood stabilizer, will add VPA 250 TID for mood stabilization today. Reason for contiued inpatient stay Substantial Risk for: harm to self, inability to function and rapid decompensation Time Spent With Patient Time: Total time managing care of this patient today _35__ minutes.
[2022-07-14] MEDS: Divalproex Sodium 250 MG TABLET.DR PO ×2 (15:32→21:19)
--- NOTE | 2022-07-14 18:45 | PC.NURSE ---
At 1830, pt's 1:1 rang the emergency brock in pt's bathroom. Pt's 1:1 tried to give pt space while pt was using the bathroom but in the process pt undid a button on her jonatan and used it to cut her right wrist. Pt has a 1.5 inch superficial cut on her inner right wrist. RN cleaned with saline and applied bacitracin and a band-aid, concession cashier provider aware. RN provided education to 1:1 and to patient on how arms length supervision is required in the bathroom. RN also provided education to patient on importance of telling a staff member if she has thoughts of cutting herself again. Pt verbalized understanding of instructions. Jonatan were removed from pt's room.
[2022-07-14 19:50] VITALS: BP 129/69; PULSE 69; RESP 18; TEMP 36.4; O2SAT 99
[2022-07-14] MEDS: traZODone HCL 100 MG TABLET PO (21:19)
[2022-07-14] MEDS: QUEtiapine Fumarate 100 MG TABLET PO (21:19)
[2022-07-14] MEDS: Prazosin HCL 1 MG CAPSULE 3 MG PO (21:19)
[2022-07-15] MEDS: hydrOXYzine HCL 50 MG TABLET PO ×3 (02:51→16:42)
[2022-07-15] MEDS: OLANZapine 5 MG TABLET PO ×2 (02:51→16:42)
[2022-07-15 08:00] VITALS: BP 101/63; PULSE 72; RESP 18; TEMP 36.6; O2SAT 97
[2022-07-15] MEDS: QUEtiapine Fumarate 50 MG TABLET PO ×2 (09:20→14:55)
[2022-07-15] MEDS: Naltrexone HCl 50 MG TABLET PO (09:20)
[2022-07-15] MEDS: Venlafaxine HCl ER 75 MG CAP.ER.24H 225 MG PO (09:21)
[2022-07-15] MEDS: Divalproex Sodium 250 MG TABLET.DR PO ×3 (09:21→21:02)
--- NOTE | 2022-07-15 14:36 | P.PNPSI_ITS ---
Subjective Subjective Date of Service: 07/15/22 Reason For Visit: MDD recurrent episode Interim History: seen with CRYSTAL saba. reports overwhelming anxiety last night and scratching as a means to discharge the emotion, which was partially successful. other coping skills discussed, including listening to music, doing art, or talking to someone. DC planning discussed, benefits of PHP reviewed. BP, dizziness Hx reviewed, pt agrees to trial of increased prazosin at 4 mg at HS and to get in bed 30 min after taking the medication at night. pt also agrees to decrease effexor from 225 to 150 in the event the higher dosing is exacerbating anxiety. per staff, anxious and depressed. denies HI/AVH. +SIBI days. no intent. generally isolative to room, napping. mumbling in sleep having nightmares. Mental Status Exam Mental Status Exam Narrative: A&O. Somewhat disheveled appearance, in casual attire. Moderate eye contact, attentive. No Tics or Tremors. No abnormal involuntary movements. cooperative. Non-pressured speech, non-spontaneous with regular rate and rhythm, quiet vo lume, decreased prosody. No prolonged speech latency or dysarthria. Mood is ?depressed,? affect is constricted, hypo-intense, non-labile. no SI/HI/AVH expressed. No known cognitive or memory impairment. Insight/ Judgment limited but adequate. Diagnostics Vital Signs (24Hr): Vital Signs - 24 hr 07/14/22 19:50 07/15/22 08:00 Temperature 97.6 F 97.9 F Pulse Rate 69 72 Respiratory Rate 18 18 Blood Pressure 129/69 101/63 Pulse Oximetry 99 97 Oxygen Delivery Method Room Air Room Air BMI result Body Mass Index 35.9 Labs 07/11/22 09:02 Labs: Laboratory Results - last 48 hr 07/14/22 08:04 Urine Opiates Screen Not Detected Urine Fentanyl Screen POSITIVE H Ur Barbiturates Screen Not Detected Ur Phencyclidine Scrn Not Detected Ur Amphetamines Screen Not Detected U Benzodiazepines Scrn Not Detected Urine Cocaine Screen Not Detected U Marijuana (THC) Screen Not Detected Medications Medications Current Medications Acetaminophen (Acetaminophen 325 Mg Tablet) 650 mg PO Q6H PRN PRN Reason: Headache/Pain Mild Scale (1-3) Al Hydroxide/Mg Hydroxide (Magnesium Hydrox/Alum Hydrox 30 Ml Oral.Susp) 30 ml PO Q6H PRN PRN Reason: Heartburn/Nausea Divalproex Sodium (Divalproex Sodium 250 Mg Tablet.Dr) 250 mg PO TID JEFFREY Last Admin: 07/15/22 09:21 Dose: 250 mg Hydroxyzine HCl (Hydroxyzine Hcl 50 Mg Tablet) 50 mg PO Q6H PRN PRN Reason: Anxiety Last Admin: 07/15/22 11:16 Dose: 50 mg Magnesium Hydroxide (Milk Of Magnesia 30 Ml Oral.Susp) 30 ml PO DAILY PRN PRN Reason: Constipation Last Admin: 07/13/22 22:09 Dose: 30 ml Naltrexone HCl (Naltrexone Hcl 50 Mg Tablet) 50 mg PO DAILY JEFFREY Last Admin: 07/15/22 09:20 Dose: 50 mg Nicotine Polacrilex (Nicotine Polacrilex 2 Mg Gum) 4 mg BUCCAL Q2H PRN PRN Reason: Nicotine Cravings Olanzapine (Olanzapine 5 Mg Tablet) 5 mg PO Q6H PRN PRN Reason: Agitation Last Admin: 07/15/22 02:51 Dose: 5 mg Prazosin HCl (Prazosin Hcl 1 Mg Capsule) 4 mg PO BEDTIME JEFFREY; Protocol Quetiapine Fumarate (Quetiapine Fumarate 100 Mg Tablet) 100 mg PO BEDTIME JEFFREY Last Admin: 07/14/22 21:19 Dose: 100 mg Quetiapine Fumarate (Quetiapine Fumarate 50 Mg Tablet) 50 mg PO BID@0900,1500 [facility] Last Admin: 07/15/22 09:20 Dose: 50 mg Trazodone HCl (Trazodone Hcl 50 Mg Tablet) 50 mg PO BEDTIME PRN PRN Reason: Insomnia Last Admin: 07/12/22 21:47 Dose: 50 mg Trazodone HCl (Trazodone Hcl 100 Mg Tablet) 100 mg PO BEDTIME JEFFREY Last Admin: 07/14/22 21:19 Dose: 100 mg Venlafaxine HCl (Venlafaxine Hcl Er 150 Mg Cap.Er.24h) 150 mg PO DAILY [facility] Zolpidem Tartrate (Zolpidem Tartrate 5 Mg Tablet) 5 mg PO BEDTIME PRN PRN Reason: Sleep Last Admin: 07/12/22 20:59 Dose: 5 mg Allergies Allergies Allergy/AdvReac Type Severity Reaction Status Date / Time coconut Allergy Severe Anaphylaxis Verified 03/14/21 22:10 nut - unspecified [NUTS] Allergy Severe HIVES, Verified 03/14/21 23:05 DIFF BREATHING, THROAT SWELLS peanut Allergy Severe Anaphylaxis Verified 03/14/21 22:10 Assessment & Plan Assessment & Plan (1) MDD (major depressive disorder), recurrent severe, without psychosis: Status: Acute Code(s): F33.2 - Major depressive disorder, recurrent severe without psychotic features (2) TREY (generalized anxiety disorder): Status: Acute Code(s): F41.1 - Generalized anxiety disorder Plan Pt is a 36-year-old female with a PMH significant for depression/anxiety with SI, PTSD, borderline personality disorder, and history of ECT who is admitted to third-floor psych for SI with plan of overdosing on her medications. Medical consult for admission H&P. Patient states she has had chronic lightheadedness /dizziness and feelings of a racing heart whenever she has a panic attack. Also complains of mild headaches past few weeks for which she has taken Tylenol to good effect. Otherwise she has no acute medical complaints. 07/11: increase HS prazosin to 3 mg.? titrate as indicated. otherwise continue home medications regimen. 07/12: continue tx 07/13: continue tx. 07/14: remains +SI. little change in presentation. numerous SSRI trials, 2 SNRI trials, numerous neuroleptic trials. no h/o evidence-based mood stabilizer, will add VPA 250 TID for mood stabilization today. 07/15: increase prazosin to 4 mg QHS. decrease effexor XR from 225 mg daily to 150 mg daily. pt cut self superficially last night when allowed in bathroom alone. otherwise no change to mgmt and no demonstrative change in presentation. Reason for contiued inpatient stay Substantial Risk for: harm to self, inability to function and rapid decompensation Time Spent With Patient Time: Total time managing care of this patient today __35__ minutes.
[2022-07-15] MEDS: traZODone HCL 100 MG TABLET PO (21:02)
[2022-07-15] MEDS: Prazosin HCL 1 MG CAPSULE 4 MG PO (21:02)
[2022-07-15] MEDS: QUEtiapine Fumarate 100 MG TABLET PO (21:03)
[2022-07-15 21:05] VITALS: BP 114/60; PULSE 84; TEMP 36.7; O2SAT 97
[2022-07-15] MEDS: Milk of Magnesia 30 ML ORAL.SUSP PO (21:48)
[2022-07-16] MEDS: hydrOXYzine HCL 50 MG TABLET PO ×4 (00:58→22:59)
[2022-07-16] MEDS: OLANZapine 5 MG TABLET PO ×4 (00:58→23:00)
[2022-07-16 06:00] VITALS: BP 122/70; PULSE 66; RESP 16; TEMP 36.3; O2SAT 98
[2022-07-16] MEDS: QUEtiapine Fumarate 50 MG TABLET PO ×2 (08:54→15:39)
[2022-07-16] MEDS: Naltrexone HCl 50 MG TABLET PO (08:54)
[2022-07-16] MEDS: Divalproex Sodium 250 MG TABLET.DR PO (08:54)
[2022-07-16] MEDS: Venlafaxine HCl ER 150 MG CAP.ER.24H PO (08:54)
--- NOTE | 2022-07-16 15:57 | P.PNPSI_ITS ---
Subjective Subjective Date of Service: 07/16/22 Reason For Visit: MDD recurrent episode Interim History: seen with CRYSTAL saba. no change in presentation. continues to have SIBI. asking to discharge to be home in time for ligia. agreeable to change VPA to all HS to help with sleep; 50% DR and 50% ER. per staff, remains on 1:1. flat affect, anxious. appears depressed. attending groups, med compliant. poor eating and sleeping. Mental Status Exam Mental Status Exam Narrative: A&O. Somewhat disheveled appearance, in casual attire. Moderate eye contact, attentive. No Tics or Tremors. No abnormal involuntary movements. cooperative. Non-pressured speech, non-spontaneous with regular rate and rhythm, quiet volume, decreased prosody. No prolonged speech latency or dysarthria. Mood is ?pretty low,? affect is constricted, hypo-intense, non-labile. +SIBI. no SI/HI/AVH expressed. No known cognitive or memory impairment. Insight/ Judgment limited but adequate. Diagnostics Vital Signs (24Hr): Vital Signs - 24 hr 07/15/22 21:05 07/16/22 06:00 Temperature 98.0 F 97.4 F Pulse Rate 84 66 Respiratory Rate 16 Blood Pressure 114/60 122/70 Pulse Oximetry 97 98 Oxygen Delivery Method Room Air Room Air BMI result Body Mass Index 35.9 Labs 07/11/22 09:02 Medications Medications Current Medications Acetaminophen (Acetaminophen 325 Mg Tablet) 650 mg PO Q6H PRN PRN Reason: Headache/Pain Mild Scale (1-3) Al Hydroxide/Mg Hydroxide (Magnesium Hydrox/Alum Hydrox 30 Ml Oral.Susp) 30 ml PO Q6H PRN PRN Reason: Heartburn/Nausea Divalproex Sodium (Divalproex Sodium 500 Mg Tablet.Dr) 500 mg PO BEDTIME JEFFREY Divalproex Sodium (Divalproex Sodium Er 500 Mg Tab.Er.24h) 500 mg PO BEDTIME JEFFREY Hydroxyzine HCl (Hydroxyzine Hcl 50 Mg Tablet) 50 mg PO Q6H PRN PRN Reason: Anxiety Last Admin: 07/16/22 08:54 Dose: 50 mg Magnesium Hydroxide (Milk Of Magnesia 30 Ml Oral.Susp) 30 ml PO DAILY PRN PRN Reason: Constipation Last Admin: 07/15/22 21:48 Dose: 30 ml Naltrexone HCl (Naltrexone Hcl 50 Mg Tablet) 50 mg PO DAILY [facility] Last Admin: 07/16/22 08:54 Dose: 50 mg Nicotine Polacrilex (Nicotine Polacrilex 2 Mg Gum) 4 mg BUCCAL Q2H PRN PRN Reason: Nicotine Cravings Olanzapine (Olanzapine 5 Mg Tablet) 5 mg PO Q6H PRN PRN Reason: Agitation Last Admin: 07/16/22 08:54 Dose: 5 mg Prazosin HCl (Prazosin Hcl 1 Mg Capsule) 4 mg PO BEDTIME JEFFREY; Protocol Last Admin: 07/15/22 21:02 Dose: 4 mg Quetiapine Fumarate (Quetiapine Fumarate 100 Mg Tablet) 100 mg PO BEDTIME JEFFREY Last Admin: 07/15/22 21:03 Dose: 100 mg Quetiapine Fumarate (Quetiapine Fumarate 50 Mg Tablet) 50 mg PO BID@0900,1500 [facility] Last Admin: 07/16/22 15:39 Dose: 50 mg Trazodone HCl (Trazodone Hcl 50 Mg Tablet) 50 mg PO BEDTIME PRN PRN Reason: Insomnia Last Admin: 07/12/22 21:47 Dose: 50 mg Trazodone HCl (Trazodone Hcl 100 Mg Tablet) 100 mg PO BEDTIME JEFFREY Last Admin: 07/15/22 21:02 Dose: 100 mg Venlafaxine HCl (Venlafaxine Hcl Er 150 Mg Cap.Er.24h) 150 mg PO DAILY [facility] Last Admin: 07/16/22 08:54 Dose: 150 mg Allergies Allergies Allergy/AdvReac Type Severity Reaction Status Date / Time coconut Allergy Severe Anaphylaxis Verified 03/14/21 22:10 nut - unspecified [NUTS] Allergy Severe HIVES, Verified 03/14/21 23:05 DIFF BREATHING, THROAT SWELLS peanut Allergy Severe Anaphylaxis Verified 03/14/21 22:10 Assessment & Plan Assessment & Plan (1) MDD (major depressive disorder), recurrent severe, without psychosis: Status: Acute Code(s): F33.2 - Major depressive disorder, recurrent severe without psychotic features (2) TREY (generalized anxiety disorder): Status: Acute Code(s): F41.1 - Generalized anxiety disorder Plan Pt is a 36-year-old female with a PMH significant for depression/anxiety with SI, PTSD, borderline personality disorder, and history of ECT who is admitted to third-floor psych for SI with plan of overdosing on her medications. Medical consult for admission H&P. Patient states she has had chronic lightheadedn ess/dizziness and feelings of a racing heart whenever she has a panic attack. Also complains of mild headaches past few weeks for which she has taken Tylenol to good effect. Otherwise she has no acute medical complaints. 07/11: increase HS prazosin to 3 mg.? titrate as indicated. otherwise continue home medications regimen. 07/12: continue tx 07/13: continue tx. 07/14: remains +SI. little change in presentation. numerous SSRI trials, 2 SNRI trials, numerous neuroleptic trials. no h/o evidence-based mood stabilizer, will add VPA 250 TID for mood stabilization today. 07/15: increase prazosin to 4 mg QHS. decrease effexor XR from 225 mg daily to 150 mg daily. pt cut self superficially last night when allowed in bathroom alone. otherwise no change to mgmt and no demonstrative change in presentation. 07/16: consolidate VPA at HS, 50% DR and 50% ER to help with sleep but also provide coverage throughout the day. sleep remains poor, nightmares continue. some dizziness after prazosin last NOC. SIBI continues, but pt future-oriented, asking for DC prior to ; planning for thursday discharge at present. Reason for contiued inpatient stay Substantial Risk for: harm to self, inability to function and rapid decompensation Time Spent With Patient Time: Total time managing care of this patient today _35___ minutes.
[2022-07-16 20:20] VITALS: BP 110/60; PULSE 76; RESP 16; TEMP 36.3; O2SAT 98
[2022-07-16] MEDS: Prazosin HCL 1 MG CAPSULE 4 MG PO (21:00)
[2022-07-16] MEDS: QUEtiapine Fumarate 100 MG TABLET PO (21:09)
[2022-07-16] MEDS: Divalproex Sodium ER 500 MG TAB.ER.24H PO (21:09)
[2022-07-16] MEDS: Divalproex Sodium 500 MG TABLET.DR PO (21:09)
[2022-07-16] MEDS: traZODone HCL 100 MG TABLET PO (21:10)
[2022-07-17 09:35] VITALS: BP 115/57; PULSE 76; RESP 18; TEMP 36.3; O2SAT 99
[2022-07-17] MEDS: Venlafaxine HCl ER 150 MG CAP.ER.24H PO (09:37)
[2022-07-17] MEDS: Naltrexone HCl 50 MG TABLET PO (09:37)
[2022-07-17] MEDS: QUEtiapine Fumarate 50 MG TABLET PO (09:37)
[2022-07-17] MEDS: Docusate Sodium 100 MG CAPSULE PO ×2 (10:41→21:12)
[2022-07-17] MEDS: hydrOXYzine HCL 50 MG TABLET PO ×2 (12:11→20:22)
[2022-07-17 21:05] VITALS: BP 116/56; PULSE 84; RESP 18; TEMP 36.7; O2SAT 100
[2022-07-17] MEDS: traZODone HCL 100 MG TABLET PO (21:10)
[2022-07-17] MEDS: Divalproex Sodium ER 500 MG TAB.ER.24H PO (21:10)
[2022-07-17] MEDS: Prazosin HCL 1 MG CAPSULE 4 MG PO (21:12)
[2022-07-17] MEDS: QUEtiapine Fumarate 100 MG TABLET PO (21:12)
[2022-07-17] MEDS: Divalproex Sodium 500 MG TABLET.DR PO (21:12)
[2022-07-17] MEDS: OLANZapine 5 MG TABLET PO (21:14)
[2022-07-17] MEDS: traZODone HCL 50 MG TABLET PO (23:41)
[2022-07-18] MEDS: hydrOXYzine HCL 50 MG TABLET PO (02:00)
--- NOTE | 2022-07-18 08:34 | HO.PSYCHPN ---
Subjective Subjective Date of Service: 07/17/22 Reason For Visit: MDD recurrent episode Subjective Notes: Conditional Voluntary Interim History: Pt in bed. Pt reports some improvement in her mood. She continues to report intermittent SI, which are chronic but states with less intensity. Pt reports she looks forward to be discharged home. Pt reports fair sleep last night. No self injurious behaviors. Medication Compliance: Yes Review of Systems Review of Systems Chronic lightheadedness, dizziness, and racing heart associated with panic attacks Headaches x the past few weeks, currently none Patient has no acute medical complaints at this time Yes all other systems are reviewed and are negative Mental Status Exam Mental Status Exam Narrative: A&O. Somewhat disheveled appearance, in casual attire. Moderate eye contact, attentive. No Tics or Tremors. No abnormal involuntary movements. cooperative. Non-pressured speech, non-spontaneous with regular rate and rhythm, quiet volume, decreased prosody. No prolonged speech latency or dysarthria. Mood is ?pretty low,? affect is constricted, hypo-intense, non-labile. +SIBI. no SI/HI/AVH expressed. No known cognitive or memory impairment. Insight/ Judgment limited but adequate. Diagnostics Vital Signs (24Hr): Vital Signs - 24 hr 07/17/22 09:35 07/17/22 21:05 Temperature 97.4 F 98.1 F Pulse Rate 76 84 Respiratory Rate 18 18 Blood Pressure 115/57 L 116/56 L Pulse Oximetry 99 100 Oxygen Delivery Method Room Air Room Air BMI result Body Mass Index 35.9 Labs 07/11/22 09:02 Medications Medications Current Medications Acetaminophen (Acetaminophen 325 Mg Tablet) 650 mg PO Q6H PRN PRN Reason: Headache/Pain Mild Scale (1-3) Al Hydroxide/Mg Hydroxide (Magnesium Hydrox/Alum Hydrox 30 Ml Oral.Susp) 30 ml PO Q6H PRN PRN Reason: Heartburn/Nausea Divalproex Sodium (Divalproex Sodium 500 Mg Tablet.) 500 mg PO BEDTIME [facility] Last Admin: 07/17/22 21:12 Dose: 500 mg Divalproex Sodium (Divalproex Sodium Er 500 Mg Tab.Er.24h) 500 mg PO BEDTIME [facility] Last Admin: 07/17/22 21:10 Dose: 500 mg Docusate Sodium (Docusate Sodium 100 Mg Capsule) 100 mg PO BID [facility] Last Admin: 07/17/22 21:12 Dose: 100 mg Hydroxyzine HCl (Hydroxyzine Hcl 50 Mg Tablet) 50 mg PO Q6H PRN PRN Reason: Anxiety Last Admin: 07/18/22 02:00 Dose: 50 mg Magnesium Hydroxide (Milk Of Magnesia 30 Ml Oral.Susp) 30 ml PO DAILY PRN PRN Reason: Constipation Last Admin: 07/15/22 21:48 Dose: 30 ml Naltrexone HCl (Naltrexone Hcl 50 Mg Tablet) 50 mg PO DAILY JEFFREY Last Admin: 07/17/22 09:37 Dose: 50 mg Nicotine Polacrilex (Nicotine Polacrilex 2 Mg Gum) 4 mg BUCCAL Q2H PRN PRN Reason: Nicotine Cravings Olanzapine (Olanzapine 5 Mg Tablet) 5 mg PO Q6H PRN PRN Reason: Agitation Last Admin: 07/17/22 21:14 Dose: 5 mg Prazosin HCl (Prazosin Hcl 1 Mg Capsule) 4 mg PO BEDTIME JEFFREY; Protocol Last Admin: 07/17/22 21:12 Dose: 4 mg Quetiapine Fumarate (Quetiapine Fumarate 100 Mg Tablet) 100 mg PO BEDTIME JEFFREY Last Admin: 07/17/22 21:12 Dose: 100 mg Quetiapine Fumarate (Quetiapine Fumarate 50 Mg Tablet) 50 mg PO BID@0900,1500 [facility] Last Admin: 07/17/22 18:49 Dose: Not Given Trazodone HCl (Trazodone Hcl 50 Mg Tablet) 50 mg PO BEDTIME PRN PRN Reason: Insomnia Last Admin: 07/17/22 23:41 Dose: 50 mg Trazodone HCl (Trazodone Hcl 100 Mg Tablet) 100 mg PO BEDTIME JEFFREY Last Admin: 07/17/22 21:10 Dose: 100 mg Venlafaxine HCl (Venlafaxine Hcl Er 150 Mg Cap.Er.24h) 150 mg PO DAILY [facility] Last Admin: 07/17/22 09:37 Dose: 150 mg Allergies Allergies Allergy/AdvReac Type Severity Reaction Status Date / Time coconut Allergy Severe Anaphylaxis Verified 03/14/21 22:10 nut - unspecified [NUTS] Allergy Severe HIVES, Verified 03/14/21 23:05 DIFF BREATHING, THROAT SWELLS peanut Allergy Severe Anaphylaxis Verified 03/14/21 22:10 Assessment & Plan Assessment & Plan (1) MDD (major depressive disorder), recurrent severe, without psychosis: Status: Acute Code(s): F33.2 - Major depressive disorder, recurrent severe without psychotic features (2) TREY (generalized anxiety disorder): Status: Acute Code(s): F41.1 - Generalized anxiety disorder Plan Pt is a 36-year-old female with a PMH significant for depression/anxiety with SI, PTSD, borderline personality disorder, and history of ECT who is admitted to third-floor psych for SI with plan of overdosing on her medications. Medical consult for admission H&P. Patient states she has had chronic lightheadedness/dizziness and feelings of a racing heart whenever she has a panic attack. Also complains of mild headaches past few weeks for which she has taken Tylenol to good effect. Otherwise she has no acute medical complaints. 07/11: increase HS prazosin to 3 mg.? titrate as indicated. otherwise continue home medications regimen. 07/12: continue tx 07/13: continue tx. 07/14: remains +SI. little change in presentation. numerous SSRI trials, 2 SNRI trials, numerous neuroleptic trials. no h/o evidence-based mood stabilizer, will add VPA 250 TID for mood stabilization today. 07/15: increase prazosin to 4 mg QHS. decrease effexor XR from 225 mg daily to 150 mg daily. pt cut self superficially last night when allowed in bathroom alone. otherwise no change to mgmt and no demonstrative change in presentation. 07/16: consolidate VPA at HS, 50% DR and 50% ER to help with sleep but also provide coverage throughout the day. sleep remains poor, nightmares continue. some dizziness after prazosin last NOC. SIBI continues, but pt future-oriented, asking for DC prior to ; planning for thursday discharge at present. 07/17 continue tx. Reason for contiued inpatient stay Substantial Risk for: stable for discharge Time Spent With Patient Time: Total time managing care of this patient today ____ minutes.
[2022-07-18] MEDS: Naltrexone HCl 50 MG TABLET PO (08:37)
[2022-07-18] MEDS: Venlafaxine HCl ER 150 MG CAP.ER.24H PO (08:37)
[2022-07-18] MEDS: QUEtiapine Fumarate 50 MG TABLET PO (08:37)
[2022-07-18] MEDS: Docusate Sodium 100 MG CAPSULE PO (08:37)
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
== END 2022-07-18 13:40 | disposition home or self-care (01) | DRG 885 ==
PROVIDERS: Psychiatry & Neurology Psychiatry; Admitting Provider Psychiatry & Neurology Psychiatry; PCP Hospitalist; Visit Provider Psychiatry & Neurology Psychiatry
DX: F33.2 Major depressive disorder, recurrent severe without psychotic features (principal); R45.851 Suicidal ideations; F41.1 Generalized anxiety disorder; I10 Essential (primary) hypertension; G47.33 Obstructive sleep apnea (adult) (pediatric); F43.10 Post-traumatic stress disorder, unspecified; Z98.84 Bariatric surgery status; Z79.899 Other long term (current) drug therapy
CPT/HCPCS: 36415; 80053; 80061; 80307; 83036

== ENCOUNTER 2022-08-07 12:45 | Outpatient (RCR) | payer OTHER, SELFPAY ==
[2022-08-06 11:49] VITALS: BMI 37.3
[2022-08-06 11:51] VITALS: BP 108/64; PULSE 68; TEMP 37
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
--- NOTE | 2022-08-06 12:23 | PC.ADMIT ---
Patient is a 36 year old female who was referred to [facility] by [facility] inpatient behavioral health unit where she was admitted d/t increased depression with SI. Patient recently hospitalized at [facility] unit and [facility] inpatient unit for similar presentation. See integrative assessment for more information. Patient is alert and oriented x4. Calm and cooperative. Presents with depressed mood and flat affect. Patient reports passive SI, denied plan or intent. Patient has a history of self harming behavior cutting her legs, ankles, and wrists. She reports last self harmed 2 weeks ago. Patient has a copy of her safety plan if needed and I reviewed her safety plan with her. 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 She stated she has been working there for a year. She reports completing classes for her bachelors degree in criminal justice and would like to eventually do some type of social work. She stated she officially graduates in August 2022. Patient has a VNA for medication management. She stated her medications have not changed since discharge from [facility] inpatient unit. She reports taking medications as prescribed. Medications reconciled with discharge medication list from inpatient unit. She reports seeing her prescriber yesterday and no medications changes were made.
--- NOTE | 2022-08-07 14:11 | PC.NURSE ---
[facility] staff report patient is unable to contract for safety. Patient reportedly cheeking her medications and not taking them. Patient escorted to [facility] without incident. Nurse to Nurse done with ER charge nurse Bianka HERNANDEZ who stated they will take her after she registers. I called patient's NATALIEKaris Kings to notify him of the above information however I was not able to get a hold of him at this time and unable to leave a message as the mail box is full.
--- NOTE | 2022-08-07 14:24 | PC.NURSE ---
[facility] [place] ER charge Nurse Bianka Appiah is also aware that I am unable to get a hold of patient's VNA at this time.
--- NOTE | 2022-08-07 14:31 | PC.NURSE ---
I spoke to [facility] patient's [facility]NA for medication management regarding patient reports of cheeking her medications thus not taking them and we are not clear where the medications are that she is cheeking.
--- NOTE | 2022-08-07 14:39 | PC.NURSE ---
Also informed Bianka charge nurse at [facility] that is unclear where patient has been putting the medications she is cheeking.
--- NOTE | 2022-08-07 15:04 | HO.PHP ---
I met with the client after the second group because she refused to answer the question about safety. She reported having suicidal thoughts with plan and intention. I asked her what her plan was and she acknowledged that she has been saving her night meds to accumulate enough to overdose. At that time I brought her in to discuss this with Orin Noguera . It was decided that the client would need a crisis evaluation. Abby reached out to the crisis team and Ayaka Henry walked the client down to the ED for a crisis evaluation.
--- NOTE | 2022-08-08 15:34 | HO.PHP ---
Case reviewed and opened in treatment team
== END 2022-08-07 23:59 | disposition admitted as inpatient to this hospital (09) ==
LOC: HO.PHPA 12:45
PROVIDERS: Visit Provider Psychiatry & Neurology Psychiatry
DX: F33.2 Major depressive disorder, recurrent severe without psychotic features (principal); F41.1 Generalized anxiety disorder
CPT/HCPCS: 90791; 90853

== ENCOUNTER 2022-08-07 14:02 | Inpatient (IN) | payer OTHER, SELFPAY ==
--- NOTE | 2022-08-07 14:12 | ED.PSYCH ---
HPI - Psych General Chief Complaint: Psychiatric Symptoms <KAYDEN Infante Last Filed: 08/07/22 14:13> Stated Complaint: Crisis <KAYDEN Infante Last Filed: 08/07/22 14:13> Time Seen by Provider: 08/07/22 14:18 <KAYDEN Infante - Last Filed: 08/07/22 14:13> Source: patient <DO Taisha Garcia Last Filed: 08/07/22 17:23> Mode of arrival: ambulatory <Ravi Cabrera DO - Last Filed: 08/07/22 17:23> Limitations: no limitations <DO Taisha Garcia Last Filed: 08/07/22 17:23> History of Present Illness HPI Narrative: 28-year-old female lives at 18-year-old daughter presents emergency department with SI. Patient denies any falls or injuries patient has no chest pain cough or fever. Patient denies any change in medications. States she is under lots of stress she denies any drug use alcohol use. Patient's main concern is that she is going to take much for pills she is very impulsive. She states she has been hospitalized for SI in the past. <DO Taisha Garcia Last Filed: 08/07/22 17:23> MD complaint: suicidal ideation and feels depressed <DO Taisha Garcia Last Filed: 08/07/22 17:23> Related Data Home Medications: Home Medications Medication Instructions Recorded Confirmed divalproex 500 mg tablet,delayed 500 mg PO BEDTIME 08/07/22 08/07/22 release hydroxyzine HCl 50 mg tablet 50 mg PO Q6H PRN anxiety 08/07/22 08/07/22 prazosin 1 mg capsule 4 mg PO BEDTIME 08/07/22 08/07/22 quetiapine 50 mg tablet 50 mg PO BID 08/07/22 08/07/22 quetiapine 50 mg tablet 100 mg PO BEDTIME 08/07/22 08/07/22 trazodone 100 mg tablet 100 mg PO BEDTIME 08/07/22 08/07/22 trazodone 50 mg tablet 50 mg PO NEEDED PRN Insomnia 08/07/22 08/07/22 venlafaxine 75 mg capsule,extended 150 mg PO QAM 08/07/22 08/08/22 release 24 hr zolpidem 5 mg tablet 5 mg PO BEDTIME PRN Insomnia 08/07/22 08/07/22 divalproex 500 mg tablet,extended 500 mg PO BEDTIME 08/08/22 08/08/22 release 24 hr <KAYDEN Infante - Last Filed: 08/07/22 14:13> Allergies/Adverse Reactions: Allergies Allergy/AdvReac Type Severity Reaction Status Date / Time coconut Allergy Severe Anaphylaxis Verified 03/14/21 22:10 nut - unspecified [NUTS] Allergy Severe HIVES, Verified 03/14/21 23:05 DIFF BREATHING, THROAT SWELLS peanut Allergy Severe Anaphylaxis Verified 03/14/21 22:10 lactose Allergy Gastrointestinal Verified 08/06/22 11:45 Upset <KAYDEN Infante - Last Filed: 08/07/22 14:13> Review of Systems Review of Systems: Review of systems: General: Patient denies any fever chills recent illness or falls Musculoskeletal: Denies back pain or body aches or other injuries HEENT: denies headache, runny nose, ear pain Respiratory: denies shortness of breath, cough Cardiovascular: no chest pain or palpitations : denies dysuria, frequency Abdomen: no nausea vomiting denies abdominal pain Extremities: no swelling, no pain Skin: no diaphoresis <Ravi Cabrera DO - Last Filed: 08/07/22 17:23> Yes all other systems are reviewed and are negative <Ravi Cabrera DO - Last Filed: 08/07/22 17:23> [facility] Past Medical History Medical History: Medical History TREY (generalized anxiety disorder) GERD (gastroesophageal reflux disease) HTN (hypertension) MDD (major depressive disorder), recurrent severe, without psychosis MARIA TERESA (obstructive sleep apnea) Post traumatic stress disorder (PTSD) Routine history and physical examination of adult <KAYDEN Infante Last Filed: 08/07/22 14:13> Surgical History: Surgical History H/O gastric bypass Hx of cholecystectomy <KAYDEN Infante Last Filed: 08/07/22 14:13> Family History Family History: Family History Mother Heart disease <KAYDEN Infante - Last Filed: 08/07/22 14:13> Social History Social History: Social History Household Members: Children Household Members Other:: 17 yo daughter Housing: Apartment Do you presently have visiting nurse or other home services: Yes Alcohol intake: current Alcohol intake frequency: does not drink Patient Tobacco Use Status: Never used Tobacco Smoked in Last 30 Days: No Use of substances other than those prescribed or required for medical reasons: No Advance Directives: No Advance Directives Information Provided: No Healthcare Proxy: No Guardian: No service: No Sexual orientation: Don't Know <KAYDEN Infante - Last Filed: 08/07/22 14:13> Physical Exam Vital Signs: Vital Signs: Last Vital Signs Temp 98.3 F 08/08/22 06:02 Pulse 65 08/08/22 06:02 Resp 08/08/22 06:02 BP 119/69 08/08/22 06:02 Pulse Ox 98 08/08/22 06:02 O2 Del Method Room Air 08/08/22 06:02 BMI result Body Mass Index 36.2 <KAYDEN Infante - Last Filed: 08/07/22 14:13> Vital Signs: Last Vital Signs Temp 98.3 F 08/08/22 06:02 Pulse 65 08/08/22 06:02 Resp 08/08/22 06:02 BP 119/69 08/08/22 06:02 Pulse Ox 98 08/08/22 06:02 O2 Del Method Room Air 08/08/22 06:02 BMI result Body Mass Index 36.2 <Ravi Cabrera DO - Last Filed: 08/07/22 17:23> Vital Signs: Last Vital Signs Temp 98.3 F 08/08/22 06:02 Pulse 65 08/08/22 06:02 Resp 08/08/22 06:02 BP 119/69 08/08/22 06:02 Pulse Ox 98 08/08/22 06:02 O2 Del Method Room Air 08/08/22 06:02 BMI result Body Mass Index 36.2 <Iglesia Swanson MD - Last Filed: 08/08/22 08:12> General: Well-appearing well-nourished in no signs of distress HEENT: Normocephalic atraumatic Neck: No signs of JVD, no masses no tenderness or lymphadenopathy Cardiovascular: Regular rate and rhythm Respiratory: Clear to auscultation bilaterally Abdomen: Soft nontender no masses Extremities: Normal pedal pulses no signs of edema Skin: Dry warm no rashes Back: No tenderness full ROM <Ravi Cabrera DO - Last Filed: 08/07/22 17:23> Course Course Course Narrative: This is an RME: Additional HPI, ROS, PE not included below will be deferred to primary provider. 28-year-old female history of major depression, anxiety presenting the emergency department with suicidal ideation, depression, reports being med compliant. Denies visual, auditory and tactile hallucinations. Denies drugs, alcohol and tobacco. She tells me she would overdose on medications if she could. Denies homicidal ideation. No medical complaints. Physical exam benign. Plan medical clearance evaluation by behavioral health team <KAYDEN Infante - Last Filed: 08/07/22 14:13> Reevaluation(s) Reevaluation #1: August 08 8:10 AM patient is Section 12 for SI, remains stable overnight no event reported to me, no new complain, vital sign as 6 a.m. stable <Iglesia Swanson MD - Last Filed: 08/08/22 08:12> Time: 08:12 <Iglesia Swanson MD - Last Filed: 08/08/22 08:12> Medications Administered Generic Name Dose Route Start Last Admin Trade Name Freq PRN Reason Stop Dose Admin Divalproex Sodium 500 mg 08/08/22 21:00 08/08/22 07:02 Divalproex Sodium Er 500 Mg Tab.Er.24h PO Not Given BEDTIME JEFFREY Discontinued Medications Generic Name Dose Route Start Last Admin Trade Name Freq PRN Reason Stop Dose Admin Hydroxyzine HCl 25 mg 08/07/22 19:30 08/07/22 19:46 Hydroxyzine Hcl 25 Mg Tablet PO 08/07/22 19:31 25 mg ONCE ONE Administration Quetiapine Fumarate 100 mg 08/07/22 19:30 08/07/22 19:46 Quetiapine Fumarate 100 Mg Tablet PO 08/07/22 19:31 100 mg ONCE ONE Administration <KAYDEN Infante - Last Filed: 08/07/22 14:13> Medications Administered Generic Name Dose Route Start Last Admin Trade Name Freq PRN Reason Stop Dose Admin Divalproex Sodium 500 mg 08/08/22 21:00 08/08/22 07:02 Divalproex Sodium Er 500 Mg Tab.Er.24h PO Not Given BEDTIME JEFFREY Discontinued Medications Generic Name Dose Route Start Last Admin Trade Name Freq PRN Reason Stop Dose Admin Hydroxyzine HCl 25 mg 08/07/22 19:30 08/07/22 19:46 Hydroxyzine Hcl 25 Mg Tablet PO 08/07/22 19:31 25 mg ONCE ONE Administration Quetiapine Fumarate 100 mg 08/07/22 19:30 08/07/22 19:46 Quetiapine Fumarate 100 Mg Tablet PO 08/07/22 19:31 100 mg ONCE ONE Administration <Ravi Cabrera DO - Last Filed: 08/07/22 17:23> Medications Administered Generic Name Dose Route Start Last Admin Trade Name Freq PRN Reason Stop Dose Admin Divalproex Sodium 500 mg 08/08/22 21:00 08/08/22 07:02 Divalproex Sodium Er 500 Mg Tab.Er.24h PO Not Given BEDTIME JEFFREY Discontinued Medications Generic Name Dose Route Start Last Admin Trade Name Freq PRN Reason Stop Dose Admin Hydroxyzine HCl 25 mg 08/07/22 19:30 08/07/22 19:46 Hydroxyzine Hcl 25 Mg Tablet PO 08/07/22 19:31 25 mg ONCE ONE Administration Quetiapine Fumarate 100 mg 08/07/22 19:30 08/07/22 19:46 Quetiapine Fumarate 100 Mg Tablet PO 08/07/22 19:31 100 mg ONCE ONE Administration <Iglesia Swanson MD - Last Filed: 08/08/22 08:12> Medical Decision Making Medical Decision Making MDM Narrative: Concern for overdose patient has normal vitals unlikely to be salicylate and I will check labs and reassess the patient I will send off an ammonia level as the patient is on Depakote <DO Taisha Garcia Last Filed: 08/07/22 17:23> Differential Diagnosis Differential Diagnoses: The differential diagnosis associated with the presentation includes <Ravi Cabrera DO - Last Filed: 08/07/22 17:23> Suicide ideation overdose valproic acid toxicity hyperammonemia due to a valproic acid toxicity or overdose of Tylenol or salicylates. I have sent off labs. <Ravi Cabrera DO - Last Filed: 08/07/22 17:23> Admission/Observation Consideration of admission/observation: Escalation of care including admission/observation considered <Ravi Cabrera DO - Last Filed: 08/07/22 17:23> Lab Data MDM Lab Attestation statement: I reviewed the patient's lab results. <Ravi Cabrera DO - Last Filed: 08/07/22 17:23> Labs look okay urine does show some red blood cells but is not a clean sample patient has many squamous cells red blood cells due to a busy TR hematuria and the patient came with a workup for her psych disease and suicidality. <Ravi Cabrera DO - Last Filed: 08/07/22 17:23> Result Diagrams: 08/07/22 14:55 08/07/22 14:55 <KAYDEN Infante - Last Filed: 08/07/22 14:13> Labs: Lab Results 08/07/22 08/07/22 08/07/22 Range/Units 14:54 14:55 14:55 WBC 6.6 (4.8-10.8) X10*3/uL RBC 4.77 (4.20-5.50) X10*6/uL Hgb 14.6 (12.0-16.0) g/dl Hct 43.7 (37.0-47.0) % MCV 91.6 (80.0-98.0) fL MCH 30.6 (27.0-33.0) pg MCHC 33.4 (31.0-35.0) g/dl RDW 12.3 (11.0-16.0) % Plt Count 213 D (160-400) X10*3/uL MPV 10.8 (9.4-12.3) fL Immature Gran % (Auto) 0.3 (0.0-0.4) % Neut % (Auto) 48.7 (45-73) % Lymph % (Auto) 38.9 (20-40) % [place] % (Auto) 7.4 (2-11) % Eos % (Auto) 3.9 (0-4) % Baso % (Auto) 0.8 (0-2) % Lymph # (Auto) 2.6 (1.2-4.9) X10*3/uL [place] # (Auto) 0.5 (0.1-1.2) X10*3/uL Eos # (Auto) 0.3 (0.0-0.4) X10*3/uL Baso # (Auto) 0.1 (0.0-0.2) X10*3/uL Abs Immat Gran (auto) 0.02 (0.00-0.03) X10*3/uL Absolute Neuts (auto) 3.2 (2.0-8.3) x10*3/uL Absolute Nucleated RBC 0.000 (0.0-0.012) X10*3/uL Nucleated RBC % (auto) 0.0 (0.0-0.2) /100WBC Sodium 140 (135-145) mmol/L Potassium 3.8 (3.3-5.1) mmol/L Chloride 106 (96-108) mmol/L Carbon Dioxide 26 (22-29) mmol/L Anion Gap 12 (12-20) BUN 7 L (9-16) mg/dL Creatinine 0.73 (0.5-1.4) mg/dL Estim Creat Clear Calc 108.8 Estimated GFR > 60 Random Glucose 84 (60-115) mg/dL Calcium 9.1 (8.4-10.2) mg/dL Magnesium 2.0 (1.6-2.6) mg/dL Total Bilirubin 0.4 (0.0-1.0) mg/dL AST 23 (5-31) U/L ALT 21 (0-31) U/L Alkaline Phosphatase 86 (39-117) U/L Ammonia 55 (13-55) umol/L Total Protein 6.8 (6.5-8.0) g/dL Albumin 4.3 (3.5-5.0) g/dL Urine Color Urine Appearance Urine pH (5.0-9.0) Ur Specific [place] (1.005-1.025) Urine Protein (Neg-Trace) mg/dL Urine Glucose (UA) (Negative) mg/dL Urine Ketones (Negative) mg/dL Urine Blood (Negative) Urine Nitrite (Negative) Ur Leukocyte Esterase (Negative) Urine RBC (0-2) /HPF Urine WBC (0-5) /HPF Ur Squamous Epith Cells (0-2) /HPF Urine Bacteria (None Seen) Hyaline Casts (0-2) /LPF Salicylates < 5.0 L (15-30) mg/dL Urine Opiates Screen (Not Detect) Urine Fentanyl Screen (Not Detect) Acetaminophen < 17 (<30) mcg/mL Ur Barbiturates Screen (Not Detect) Valproic Acid (50.0-100.0) mcg/mL Ur Phencyclidine Scrn (Not Detect) Ur Amphetamines Screen (Not Detect) U Benzodiazepines Scrn (Not Detect) Urine Cocaine Screen (Not Detect) U Marijuana (THC) Screen (Not Detect) Ethyl Alcohol mg/dL COVID-19 (JEFF) (Negative) COVID-19 Clin Com 08/07/22 08/07/22 08/07/22 Range/Units 14:55 14:55 14:55 WBC (4.8-10.8) X10*3/uL RBC (4.20-5.50) X10*6/uL Hgb (12.0-16.0) g/dl Hct (37.0-47.0) % MCV (80.0-98.0) fL MCH (27.0-33.0) pg MCHC (31.0-35.0) g/dl RDW (11.0-16.0) % Plt Count (160-400) X10*3/uL MPV (9.4-12.3) fL Immature Gran % (Auto) (0.0-0.4) % Neut % (Auto) (45-73) % Lymph % (Auto) (20-40) % [place] % (Auto) (2-11) % Eos % (Auto) (0-4) % Baso % (Auto) (0-2) % Lymph # (Auto) (1.2-4.9) X10*3/uL [place] # (Auto) (0.1-1.2) X10*3/uL Eos # (Auto) (0.0-0.4) X10*3/uL Baso # (Auto) (0.0-0.2) X10*3/uL Abs Immat Gran (auto) (0.00-0.03) X10*3/uL Absolute Neuts (auto) (2.0-8.3) x10*3/uL Absolute Nucleated RBC (0.0-0.012) X10*3/uL Nucleated RBC % (auto) (0.0-0.2) /100WBC Sodium (135-145) mmol/L Potassium (3.3-5.1) mmol/L Chloride (96-108) mmol/L Carbon Dioxide (22-29) mmol/L Anion Gap (12-20) BUN (9-16) mg/dL Creatinine (0.5-1.4) mg/dL Estim Creat Clear Calc Estimated GFR Random Glucose (60-115) mg/dL Calcium (8.4-10.2) mg/dL Magnesium (1.6-2.6) mg/dL Total Bilirubin (0.0-1.0) mg/dL AST (5-31) U/L ALT (0-31) U/L Alkaline Phosphatase (39-117) U/L Ammonia (13-55) umol/L Total Protein (6.5-8.0) g/dL Albumin (3.5-5.0) g/dL Urine Color Urine Appearance Urine pH (5.0-9.0) Ur Specific [place] (1.005-1.025) Urine Protein (Neg-Trace) mg/dL Urine Glucose (UA) (Negative) mg/dL Urine Ketones (Negative) mg/dL Urine Blood (Negative) Urine Nitrite (Negative) Ur Leukocyte Esterase (Negative) Urine RBC (0-2) /HPF Urine WBC (0-5) /HPF Ur Squamous Epith Cells (0-2) /HPF Urine Bacteria (None Seen) Hyaline Casts (0-2) /LPF Salicylates (15-30) mg/dL Urine Opiates Screen (Not Detect) Urine Fentanyl Screen (Not Detect) Acetaminophen (<30) mcg/mL Ur Barbiturates Screen (Not Detect) Valproic Acid 51.3 (50.0-100.0) mcg/mL Ur Phencyclidine Scrn (Not Detect) Ur Amphetamines Screen (Not Detect) U Benzodiazepines Scrn (Not Detect) Urine Cocaine Screen (Not Detect) U Marijuana (THC) Screen (Not Detect) Ethyl Alcohol < 10 mg/dL COVID-19 (JEFF) Negative (Negative) COVID-19 Clin Com See Note 08/07/22 08/07/22 Range/Units 14:57 17:46 WBC (4.8-10.8) X10*3/uL RBC (4.20-5.50) X10*6/uL Hgb (12.0-16.0) g/dl Hct (37.0-47.0) % MCV (80.0-98.0) fL MCH (27.0-33.0) pg MCHC (31.0-35.0) g/dl RDW (11.0-16.0) % Plt Count (160-400) X10*3/uL MPV (9.4-12.3) fL Immature Gran % (Auto) (0.0-0.4) % Neut % (Auto) (45-73) % Lymph % (Auto) (20-40) % [place] % (Auto) (2-11) % Eos % (Auto) (0-4) % Baso % (Auto) (0-2) % Lymph # (Auto) (1.2-4.9) X10*3/uL [place] # (Auto) (0.1-1.2) X10*3/uL Eos # (Auto) (0.0-0.4) X10*3/uL Baso # (Auto) (0.0-0.2) X10*3/uL Abs Immat Gran (auto) (0.00-0.03) X10*3/uL Absolute Neuts (auto) (2.0-8.3) x10*3/uL Absolute Nucleated RBC (0.0-0.012) X10*3/uL Nucleated RBC % (auto) (0.0-0.2) /100WBC Sodium (135-145) mmol/L Potassium (3.3-5.1) mmol/L Chloride (96-108) mmol/L Carbon Dioxide (22-29) mmol/L Anion Gap (12-20) BUN (9-16) mg/dL Creatinine (0.5-1.4) mg/dL Estim Creat Clear Calc Estimated GFR Random Glucose (60-115) mg/dL Calcium (8.4-10.2) mg/dL Magnesium (1.6-2.6) mg/dL Total Bilirubin (0.0-1.0) mg/dL AST (5-31) U/L ALT (0-31) U/L Alkaline Phosphatase (39-117) U/L Ammonia (13-55) umol/L Total Protein (6.5-8.0) g/dL Albumin (3.5-5.0) g/dL Urine Color Dark Yellow Urine Appearance Cloudy Urine pH 5.5 (5.0-9.0) Ur Specific [place] >= 1.030 H (1.005-1.025) Urine Protein 30 (1+) H (Neg-Trace) mg/dL Urine Glucose (UA) Negative (Negative) mg/dL Urine Ketones 15 (Negative) mg/dL Urine Blood Large (3+) H (Negative) Urine Nitrite Negative (Negative) Ur Leukocyte Esterase Small (1+) H (Negative) Urine RBC >20 H (0-2) /HPF Urine WBC 0-5 (0-5) /HPF Ur Squamous Epith Cells 11-20 (0-2) /HPF Urine Bacteria 1+ (None Seen) Hyaline Casts 0-2 (0-2) /LPF Salicylates (15-30) mg/dL Urine Opiates Screen Not Detected (Not Detect) Urine Fentanyl Screen Not Detected (Not Detect) Acetaminophen (<30) mcg/mL Ur Barbiturates Screen Not Detected (Not Detect) Valproic Acid (50.0-100.0) mcg/mL Ur Phencyclidine Scrn Not Detected (Not Detect) Ur Amphetamines Screen Not Detected (Not Detect) U Benzodiazepines Scrn Not Detected (Not Detect) Urine Cocaine Screen Not Detected (Not Detect) U Marijuana (THC) Screen Not Detected (Not Detect) Ethyl Alcohol mg/dL COVID-19 (JEFF) (Negative) COVID-19 Clin Com <KAYDEN Infante - Last Filed: 08/07/22 14:13> Lab Results 08/07/22 08/07/22 08/07/22 Range/Units 14:54 14:55 14:55 WBC 6.6 (4.8-10.8) X10*3/uL RBC 4.77 (4.20-5.50) X10*6/uL Hgb 14.6 (12.0-16.0) g/dl Hct 43.7 (37.0-47.0) % MCV 91.6 (80.0-98.0) fL MCH 30.6 (27.0-33.0) pg MCHC 33.4 (31.0-35.0) g/dl RDW 12.3 (11.0-16.0) % Plt Count 213 D (160-400) X10*3/uL MPV 10.8 (9.4-12.3) fL Immature Gran % (Auto) 0.3 (0.0-0.4) % Neut % (Auto) 48.7 (45-73) % Lymph % (Auto) 38.9 (20-40) % [place] % (Auto) 7.4 (2-11) % Eos % (Auto) 3.9 (0-4) % Baso % (Auto) 0.8 (0-2) % Lymph # (Auto) 2.6 (1.2-4.9) X10*3/uL [place] # (Auto) 0.5 (0.1-1.2) X10*3/uL Eos # (Auto) 0.3 (0.0-0.4) X10*3/uL Baso # (Auto) 0.1 (0.0-0.2) X10*3/uL Abs Immat Gran (auto) 0.02 (0.00-0.03) X10*3/uL Absolute Neuts (auto) 3.2 (2.0-8.3) x10*3/uL Absolute Nucleated RBC 0.000 (0.0-0.012) X10*3/uL Nucleated RBC % (auto) 0.0 (0.0-0.2) /100WBC Sodium 140 (135-145) mmol/L Potassium 3.8 (3.3-5.1) mmol/L Chloride 106 (96-108) mmol/L Carbon Dioxide 26 (22-29) mmol/L Anion Gap 12 (12-20) BUN 7 L (9-16) mg/dL Creatinine 0.73 (0.5-1.4) mg/dL Estim Creat Clear Calc 108.8 Estimated GFR > 60 Random Glucose 84 (60-115) mg/dL Calcium 9.1 (8.4-10.2) mg/dL Magnesium 2.0 (1.6-2.6) mg/dL Total Bilirubin 0.4 (0.0-1.0) mg/dL AST 23 (5-31) U/L ALT 21 (0-31) U/L Alkaline Phosphatase 86 (39-117) U/L Ammonia 55 (13-55) umol/L Total Protein 6.8 (6.5-8.0) g/dL Albumin 4.3 (3.5-5.0) g/dL Urine Color Urine Appearance Urine pH (5.0-9.0) Ur Specific [place] (1.005-1.025) Urine Protein (Neg-Trace) mg/dL Urine Glucose (UA) (Negative) mg/dL Urine Ketones (Negative) mg/dL Urine Blood (Negative) Urine Nitrite (Negative) Ur Leukocyte Esterase (Negative) Urine RBC (0-2) /HPF Urine WBC (0-5) /HPF Ur Squamous Epith Cells (0-2) /HPF Urine Bacteria (None Seen) Hyaline Casts (0-2) /LPF Salicylates < 5.0 L (15-30) mg/dL Urine Opiates Screen (Not Detect) Urine Fentanyl Screen (Not Detect) Acetaminophen < 17 (<30) mcg/mL Ur Barbiturates Screen (Not Detect) Valproic Acid (50.0-100.0) mcg/mL Ur Phencyclidine Scrn (Not Detect) Ur Amphetamines Screen (Not Detect) U Benzodiazepines Scrn (Not Detect) Urine Cocaine Screen (Not Detect) U Marijuana (THC) Screen (Not Detect) Ethyl Alcohol mg/dL COVID-19 (JEFF) (Negative) COVID-19 Clin Com 08/07/22 08/07/22 08/07/22 Range/Units 14:55 14:55 14:55 WBC (4.8-10.8) X10*3/uL RBC (4.20-5.50) X10*6/uL Hgb (12.0-16.0) g/dl Hct (37.0-47.0) % MCV (80.0-98.0) fL MCH (27.0-33.0) pg MCHC (31.0-35.0) g/dl RDW (11.0-16.0) % Plt Count (160-400) X10*3/uL MPV (9.4-12.3) fL Immature Gran % (Auto) (0.0-0.4) % Neut % (Auto) (45-73) % Lymph % (Auto) (20-40) % [place] % (Auto) (2-11) % Eos % (Auto) (0-4) % Baso % (Auto) (0-2) % Lymph # (Auto) (1.2-4.9) X10*3/uL [place] # (Auto) (0.1-1.2) X10*3/uL Eos # (Auto) (0.0-0.4) X10*3/uL Baso # (Auto) (0.0-0.2) X10*3/uL Abs Immat Gran (auto) (0.00-0.03) X10*3/uL Absolute Neuts (auto) (2.0-8.3) x10*3/uL Absolute Nucleated RBC (0.0-0.012) X10*3/uL Nucleated RBC % (auto) (0.0-0.2) /100WBC Sodium (135-145) mmol/L Potassium (3.3-5.1) mmol/L Chloride (96-108) mmol/L Carbon Dioxide (22-29) mmol/L Anion Gap (12-20) BUN (9-16) mg/dL Creatinine (0.5-1.4) mg/dL Estim Creat Clear Calc Estimated GFR Random Glucose (60-115) mg/dL Calcium (8.4-10.2) mg/dL Magnesium (1.6-2.6) mg/dL Total Bilirubin (0.0-1.0) mg/dL AST (5-31) U/L ALT (0-31) U/L Alkaline Phosphatase (39-117) U/L Ammonia (13-55) umol/L Total Protein (6.5-8.0) g/dL Albumin (3.5-5.0) g/dL Urine Color Urine Appearance Urine pH (5.0-9.0) Ur Specific [place] (1.005-1.025) Urine Protein (Neg-Trace) mg/dL Urine Glucose (UA) (Negative) mg/dL Urine Ketones (Negative) mg/dL Urine Blood (Negative) Urine Nitrite (Negative) Ur Leukocyte Esterase (Negative) Urine RBC (0-2) /HPF Urine WBC (0-5) /HPF Ur Squamous Epith Cells (0-2) /HPF Urine Bacteria (None Seen) Hyaline Casts (0-2) /LPF Salicylates (15-30) mg/dL Urine Opiates Screen (Not Detect) Urine Fentanyl Screen (Not Detect) Acetaminophen (<30) mcg/mL Ur Barbiturates Screen (Not Detect) Valproic Acid 51.3 (50.0-100.0) mcg/mL Ur Phencyclidine Scrn (Not Detect) Ur Amphetamines Screen (Not Detect) U Benzodiazepines Scrn (Not Detect) Urine Cocaine Screen (Not Detect) U Marijuana (THC) Screen (Not Detect) Ethyl Alcohol < 10 mg/dL COVID-19 (JEFF) Negative (Negative) COVID-19 Clin Com See Note 08/07/22 08/07/22 Range/Units 14:57 17:46 WBC (4.8-10.8) X10*3/uL RBC (4.20-5.50) X10*6/uL Hgb (12.0-16.0) g/dl Hct (37.0-47.0) % MCV (80.0-98.0) fL MCH (27.0-33.0) pg MCHC (31.0-35.0) g/dl RDW (11.0-16.0) % Plt Count (160-400) X10*3/uL MPV (9.4-12.3) fL Immature Gran % (Auto) (0.0-0.4) % Neut % (Auto) (45-73) % Lymph % (Auto) (20-40) % [place] % (Auto) (2-11) % Eos % (Auto) (0-4) % Baso % (Auto) (0-2) % Lymph # (Auto) (1.2-4.9) X10*3/uL [place] # (Auto) (0.1-1.2) X10*3/uL Eos # (Auto) (0.0-0.4) X10*3/uL Baso # (Auto) (0.0-0.2) X10*3/uL Abs Immat Gran (auto) (0.00-0.03) X10*3/uL Absolute Neuts (auto) (2.0-8.3) x10*3/uL Absolute Nucleated RBC (0.0-0.012) X10*3/uL Nucleated RBC % (auto) (0.0-0.2) /100WBC Sodium (135-145) mmol/L Potassium (3.3-5.1) mmol/L Chloride (96-108) mmol/L Carbon Dioxide (22-29) mmol/L Anion Gap (12-20) BUN (9-16) mg/dL Creatinine (0.5-1.4) mg/dL Estim Creat Clear Calc Estimated GFR Random Glucose (60-115) mg/dL Calcium (8.4-10.2) mg/dL Magnesium (1.6-2.6) mg/dL Total Bilirubin (0.0-1.0) mg/dL AST (5-31) U/L ALT (0-31) U/L Alkaline Phosphatase (39-117) U/L Ammonia (13-55) umol/L Total Protein (6.5-8.0) g/dL Albumin (3.5-5.0) g/dL Urine Color Dark Yellow Urine Appearance Cloudy Urine pH 5.5 (5.0-9.0) Ur Specific [place] >= 1.030 H (1.005-1.025) Urine Protein 30 (1+) H (Neg-Trace) mg/dL Urine Glucose (UA) Negative (Negative) mg/dL Urine Ketones 15 (Negative) mg/dL Urine Blood Large (3+) H (Negative) Urine Nitrite Negative (Negative) Ur Leukocyte Esterase Small (1+) H (Negative) Urine RBC >20 H (0-2) /HPF Urine WBC 0-5 (0-5) /HPF Ur Squamous Epith Cells 11-20 (0-2) /HPF Urine Bacteria 1+ (None Seen) Hyaline Casts 0-2 (0-2) /LPF Salicylates (15-30) mg/dL Urine Opiates Screen Not Detected (Not Detect) Urine Fentanyl Screen Not Detected (Not Detect) Acetaminophen (<30) mcg/mL Ur Barbiturates Screen Not Detected (Not Detect) Valproic Acid (50.0-100.0) mcg/mL Ur Phencyclidine Scrn Not Detected (Not Detect) Ur Amphetamines Screen Not Detected (Not Detect) U Benzodiazepines Scrn Not Detected (Not Detect) Urine Cocaine Screen Not Detected (Not Detect) U Marijuana (THC) Screen Not Detected (Not Detect) Ethyl Alcohol mg/dL COVID-19 (JEFF) (Negative) COVID-19 Clin Com <Ravi Cabrera, DO - Last Filed: 08/07/22 17:23> Lab Results 08/07/22 08/07/22 08/07/22 Range/Units 14:54 14:55 14:55 WBC 6.6 (4.8-10.8) X10*3/uL RBC 4.77 (4.20-5.50) X10*6/uL Hgb 14.6 (12.0-16.0) g/dl Hct 43.7 (37.0-47.0) % MCV 91.6 (80.0-98.0) fL MCH 30.6 (27.0-33.0) pg MCHC 33.4 (31.0-35.0) g/dl RDW 12.3 (11.0-16.0) % Plt Count 213 D (160-400) X10*3/uL MPV 10.8 (9.4-12.3) fL Immature Gran % (Auto) 0.3 (0.0-0.4) % Neut % (Auto) 48.7 (45-73) % Lymph % (Auto) 38.9 (20-40) % [place] % (Auto) 7.4 (2-11) % Eos % (Auto) 3.9 (0-4) % Baso % (Auto) 0.8 (0-2) % Lymph # (Auto) 2.6 (1.2-4.9) X10*3/uL [place] # (Auto) 0.5 (0.1-1.2) X10*3/uL Eos # (Auto) 0.3 (0.0-0.4) X10*3/uL Baso # (Auto) 0.1 (0.0-0.2) X10*3/uL Abs Immat Gran (auto) 0.02 (0.00-0.03) X10*3/uL Absolute Neuts (auto) 3.2 (2.0-8.3) x10*3/uL Absolute Nucleated RBC 0.000 (0.0-0.012) X10*3/uL Nucleated RBC % (auto) 0.0 (0.0-0.2) /100WBC Sodium 140 (135-145) mmol/L Potassium 3.8 (3.3-5.1) mmol/L Chloride 106 (96-108) mmol/L Carbon Dioxide 26 (22-29) mmol/L Anion Gap 12 (12-20) BUN 7 L (9-16) mg/dL Creatinine 0.73 (0.5-1.4) mg/dL Estim Creat Clear Calc 108.8 Estimated GFR > 60 Random Glucose 84 (60-115) mg/dL Calcium 9.1 (8.4-10.2) mg/dL Magnesium 2.0 (1.6-2.6) mg/dL Total Bilirubin 0.4 (0.0-1.0) mg/dL AST 23 (5-31) U/L ALT 21 (0-31) U/L Alkaline Phosphatase 86 (39-117) U/L Ammonia 55 (13-55) umol/L Total Protein 6.8 (6.5-8.0) g/dL Albumin 4.3 (3.5-5.0) g/dL Urine Color Urine Appearance Urine pH (5.0-9.0) Ur Specific [place] (1.005-1.025) Urine Protein (Neg-Trace) mg/dL Urine Glucose (UA) (Negative) mg/dL Urine Ketones (Negative) mg/dL Urine Blood (Negative) Urine Nitrite (Negative) Ur Leukocyte Esterase (Negative) Urine RBC (0-2) /HPF Urine WBC (0-5) /HPF Ur Squamous Epith Cells (0-2) /HPF Urine Bacteria (None Seen) Hyaline Casts (0-2) /LPF Salicylates < 5.0 L (15-30) mg/dL Urine Opiates Screen (Not Detect) Urine Fentanyl Screen (Not Detect) Acetaminophen < 17 (<30) mcg/mL Ur Barbiturates Screen (Not Detect) Valproic Acid (50.0-100.0) mcg/mL Ur Phencyclidine Scrn (Not Detect) Ur Amphetamines Screen (Not Detect) U Benzodiazepines Scrn (Not Detect) Urine Cocaine Screen (Not Detect) U Marijuana (THC) Screen (Not Detect) Ethyl Alcohol mg/dL COVID-19 (JEFF) (Negative) COVID-19 Clin Com 08/07/22 08/07/22 08/07/22 Range/Units 14:55 14:55 14:55 WBC (4.8-10.8) X10*3/uL RBC (4.20-5.50) X10*6/uL Hgb (12.0-16.0) g/dl Hct (37.0-47.0) % MCV (80.0-98.0) fL MCH (27.0-33.0) pg MCHC (31.0-35.0) g/dl RDW (11.0-16.0) % Plt Count (160-400) X10*3/uL MPV (9.4-12.3) fL Immature Gran % (Auto) (0.0-0.4) % Neut % (Auto) (45-73) % Lymph % (Auto) (20-40) % [place] % (Auto) (2-11) % Eos % (Auto) (0-4) % Baso % (Auto) (0-2) % Lymph # (Auto) (1.2-4.9) X10*3/uL [place] # (Auto) (0.1-1.2) X10*3/uL Eos # (Auto) (0.0-0.4) X10*3/uL Baso # (Auto) (0.0-0.2) X10*3/uL Abs Immat Gran (auto) (0.00-0.03) X10*3/uL Absolute Neuts (auto) (2.0-8.3) x10*3/uL Absolute Nucleated RBC (0.0-0.012) X10*3/uL Nucleated RBC % (auto) (0.0-0.2) /100WBC Sodium (135-145) mmol/L Potassium (3.3-5.1) mmol/L Chloride (96-108) mmol/L Carbon Dioxide (22-29) mmol/L Anion Gap (12-20) BUN (9-16) mg/dL Creatinine (0.5-1.4) mg/dL Estim Creat Clear Calc Estimated GFR Random Glucose (60-115) mg/dL Calcium (8.4-10.2) mg/dL Magnesium (1.6-2.6) mg/dL Total Bilirubin (0.0-1.0) mg/dL AST (5-31) U/L ALT (0-31) U/L Alkaline Phosphatase (39-117) U/L Ammonia (13-55) umol/L Total Protein (6.5-8.0) g/dL Albumin (3.5-5.0) g/dL Urine Color Urine Appearance Urine pH (5.0-9.0) Ur Specific [place] (1.005-1.025) Urine Protein (Neg-Trace) mg/dL Urine Glucose (UA) (Negative) mg/dL Urine Ketones (Negative) mg/dL Urine Blood (Negative) Urine Nitrite (Negative) Ur Leukocyte Esterase (Negative) Urine RBC (0-2) /HPF Urine WBC (0-5) /HPF Ur Squamous Epith Cells (0-2) /HPF Urine Bacteria (None Seen) Hyaline Casts (0-2) /LPF Salicylates (15-30) mg/dL Urine Opiates Screen (Not Detect) Urine Fentanyl Screen (Not Detect) Acetaminophen (<30) mcg/mL Ur Barbiturates Screen (Not Detect) Valproic Acid 51.3 (50.0-100.0) mcg/mL Ur Phencyclidine Scrn (Not Detect) Ur Amphetamines Screen (Not Detect) U Benzodiazepines Scrn (Not Detect) Urine Cocaine Screen (Not Detect) U Marijuana (THC) Screen (Not Detect) Ethyl Alcohol < 10 mg/dL COVID-19 (JEFF) Negative (Negative) COVID-19 Clin Com See Note 08/07/22 08/07/22 Range/Units 14:57 17:46 WBC (4.8-10.8) X10*3/uL RBC (4.20-5.50) X10*6/uL Hgb (12.0-16.0) g/dl Hct (37.0-47.0) % MCV (80.0-98.0) fL MCH (27.0-33.0) pg MCHC (31.0-35.0) g/dl RDW (11.0-16.0) % Plt Count (160-400) X10*3/uL MPV (9.4-12.3) fL Immature Gran % (Auto) (0.0-0.4) % Neut % (Auto) (45-73) % Lymph % (Auto) (20-40) % [place] % (Auto) (2-11) % Eos % (Auto) (0-4) % Baso % (Auto) (0-2) % Lymph # (Auto) (1.2-4.9) X10*3/uL [place] # (Auto) (0.1-1.2) X10*3/uL Eos # (Auto) (0.0-0.4) X10*3/uL Baso # (Auto) (0.0-0.2) X10*3/uL Abs Immat Gran (auto) (0.00-0.03) X10*3/uL Absolute Neuts (auto) (2.0-8.3) x10*3/uL Absolute Nucleated RBC (0.0-0.012) X10*3/uL Nucleated RBC % (auto) (0.0-0.2) /100WBC Sodium (135-145) mmol/L Potassium (3.3-5.1) mmol/L Chloride (96-108) mmol/L Carbon Dioxide (22-29) mmol/L Anion Gap (12-20) BUN (9-16) mg/dL Creatinine (0.5-1.4) mg/dL Estim Creat Clear Calc Estimated GFR Random Glucose (60-115) mg/dL Calcium (8.4-10.2) mg/dL Magnesium (1.6-2.6) mg/dL Total Bilirubin (0.0-1.0) mg/dL AST (5-31) U/L ALT (0-31) U/L Alkaline Phosphatase (39-117) U/L Ammonia (13-55) umol/L Total Protein (6.5-8.0) g/dL Albumin (3.5-5.0) g/dL Urine Color Dark Yellow Urine Appearance Cloudy Urine pH 5.5 (5.0-9.0) Ur Specific [place] >= 1.030 H (1.005-1.025) Urine Protein 30 (1+) H (Neg-Trace) mg/dL Urine Glucose (UA) Negative (Negative) mg/dL Urine Ketones 15 (Negative) mg/dL Urine Blood Large (3+) H (Negative) Urine Nitrite Negative (Negative) Ur Leukocyte Esterase Small (1+) H (Negative) Urine RBC >20 H (0-2) /HPF Urine WBC 0-5 (0-5) /HPF Ur Squamous Epith Cells 11-20 (0-2) /HPF Urine Bacteria 1+ (None Seen) Hyaline Casts 0-2 (0-2) /LPF Salicylates (15-30) mg/dL Urine Opiates Screen Not Detected (Not Detect) Urine Fentanyl Screen Not Detected (Not Detect) Acetaminophen (<30) mcg/mL Ur Barbiturates Screen Not Detected (Not Detect) Valproic Acid (50.0-100.0) mcg/mL Ur Phencyclidine Scrn Not Detected (Not Detect) Ur Amphetamines Screen Not Detected (Not Detect) U Benzodiazepines Scrn Not Detected (Not Detect) Urine Cocaine Screen Not Detected (Not Detect) U Marijuana (THC) Screen Not Detected (Not Detect) Ethyl Alcohol mg/dL COVID-19 (JEFF) (Negative) COVID-19 Clin Com <Iglesia Swanson MD - Last Filed: 08/08/22 08:12> Discharge Plan Discharge Clinical Impression: Suicidal ideation, Depression, Acute anxiety <KAYDEN Infante - Last Filed: 08/07/22 14:13> Patient Disposition: Still a Patient <KAYDEN Infante - Last Filed: 08/07/22 14:13> Prescriptions: No Action prazosin 1 mg capsule 4 mg PO BEDTIME hydroxyzine HCl 50 mg tablet 50 mg PO Q6H PRN (Reason: anxiety) divalproex 500 mg tablet,delayed release (DR/EC) 500 mg PO BEDTIME trazodone 100 mg tablet 100 mg PO BEDTIME trazodone 50 mg tablet 50 mg PO NEEDED PRN (Reason: Insomnia) quetiapine 50 mg tablet 100 mg PO BEDTIME quetiapine 50 mg tablet 50 mg PO BID venlafaxine 75 mg capsule,extended release 24hr 150 mg PO QAM zolpidem 5 mg Tablet 5 mg PO BEDTIME PRN (Reason: Insomnia) divalproex 500 mg tablet extended release 24 hr 500 mg PO BEDTIME <KAYDEN Infante - Last Filed: 08/07/22 14:13> Interventions: Stewart-Suicide Risk Severity Scale Last Done: 08/08/22 04:40 <KAYDEN Infante - Last Filed: 08/07/22 14:13>
[2022-08-07 14:13] VITALS: BP 127/76; PULSE 87; RESP 18; TEMP 36.6; O2SAT 98; BMI 36.2
--- NOTE | 2022-08-07 14:40 | MHC.CARE ---
Per PATRICK limon, pt has been cheeking her meds brought to her by her VNA for an unknown amount of time. It is unknown if pt has these meds in her home somewhere.
[2022-08-07 15:03] LABS: MANUAL DIFF FLAG NO
[2022-08-07 15:05] LABS: Basophils Absolute Auto 0.1 X10*3/uL (0.0-0.2); Basophils Percent Auto 0.8 % (0-2); Eosinophils Absolute Auto 0.3 X10*3/uL (0.0-0.4); Eosinophils Percent Auto 3.9 % (0-4); Hematocrit 43.7 % (37.0-47.0); Hemoglobin 14.6 g/dl (12.0-16.0); Imm Gran Abs Auto 0.02 X10*3/uL (0.00-0.03); Imm Gran Pct Auto 0.3 % (0.0-0.4); Lymphocytes Absolute Auto 2.6 X10*3/uL (1.2-4.9); Lymphocytes Percent Auto 38.9 % (20-40); Mean Corpuscular HGB Conc 33.4 g/dl (31.0-35.0); Mean Corpuscular Hemoglobin 30.6 pg (27.0-33.0); Mean Corpuscular Volume 91.6 fL (80.0-98.0); Mean Platelet Volume 10.8 fL (9.4-12.3); Monocytes Absolute Auto 0.5 X10*3/uL (0.1-1.2); Monocytes Percent Auto 7.4 % (2-11); Neutrophils Absolute Auto 3.2 x10*3/uL (2.0-8.3); Neutrophils Percent Auto 48.7 % (45-73); Platelet Count 213 X10*3/uL (160-400); Red Blood Count 4.77 X10*6/uL (4.20-5.50); Red Cell Distribution Width 12.3 % (11.0-16.0); White Blood Count 6.6 X10*3/uL (4.8-10.8)
[2022-08-07 15:17] LABS: Appearance Urine Cloudy; Color Urine Dark Yellow; Glucose Urine UA Negative (Negative); Leukocyte Esterase Urine Small (1+) (Negative); Nitrite Urine Negative (Negative); PH 5.5 (5.0-9.0); Specific Gravity - Urine >= 1.030 (1.005-1.025); UMIC TRIGGER UACC YES; Urine Blood Large (3+) (Negative); Urine Ketones 15 mg/dL (Negative); Urine Protein 30 (1+) mg/dL (Neg-Trace)
[2022-08-07 15:20] LABS: COVID-19 Test Negative (Negative); IDNOW Serial# BCCEAD1C
[2022-08-07 15:32] LABS: Ethanol < 10 mg/dL
[2022-08-07 15:37] LABS: Acetaminophen LAB < 17 mcg/mL (<30); Alanine Aminotransferase 21 U/L (0-31); Albumin Level 4.3 g/dL (3.5-5.0); Alkaline Phosphatase 86 U/L (39-117); Anion Gap 12 (12-20); Aspartate Amino Transferase 23 U/L (5-31); Bilirubin Total 0.4 mg/dL (0.0-1.0); Blood Urea Nitrogen 7 mg/dL (9-16); Calcium 9.1 mg/dL (8.4-10.2); Carbon Dioxide 26 mmol/L (22-29); Chloride 106 mmol/L (96-108); Creatinine Clr Calc Pharmacy 108.8; Estimated Glomerular Filt Rate > 60; Glucose Random 84 mg/dL (60-115); Potassium 3.8 mmol/L (3.3-5.1); Salicylate < 5.0 mg/dL (15-30); Sodium 140 mmol/L (135-145); Total Protein 6.8 g/dL (6.5-8.0)
[2022-08-07 15:48] LABS: Valproate 51.3 mcg/mL (50.0-100.0)
[2022-08-07 15:52] LABS: Ammonia 55 umol/L (13-55)
[2022-08-07 17:17] LABS: Bacteria Urine 1+ (None Seen); Hyaline Casts Urine 0-2 /LPF (0-2); RBC Urine >20 /HPF (0-2); UACC Culture Trigger YES; WBC Urine 0-5 /HPF (0-5)
[2022-08-07 18:08] LABS: Amphetamine Screen Urine Not Detected (Not Detect); Barbiturates, Urine Not Detected (Not Detect); Benzodiazepines Screen Urine Not Detected (Not Detect); Cannabinoid Screen Urine Not Detected (Not Detect); Cocaine Screen Urine Not Detected (Not Detect); Fentanyl, urine Not Detected (Not Detect); Opiate Screen Urine Not Detected (Not Detect); Phencyclidine Screen Urine Not Detected (Not Detect)
[2022-08-07 19:31] VITALS: BP 121/79; PULSE 75; RESP 16; TEMP 36.3; O2SAT 96
[2022-08-07] MEDS: hydrOXYzine HCL 25 MG TABLET PO (19:46)
[2022-08-07] MEDS: QUEtiapine Fumarate 100 MG TABLET PO (19:46)
--- NOTE | 2022-08-07 21:51 | MHC.CARE ---
Pt is an inpatient bedsearch at this time
--- NOTE | 2022-08-08 04:42 | PC.NURSE ---
Patient slept through the night, no distress observed/reported, behavior non concerning, med rec completed/pending provider's approval, disposition per care team is section 12 inpatient bed search, patient is allergic to peanuts/coconut/nut staff member cautioned, VSS, will continue to monitor
[2022-08-08 06:02] VITALS: BP 119/69; PULSE 65; RESP 17; TEMP 36.8; O2SAT 98
[2022-08-08] MEDS: QUEtiapine Fumarate 50 MG TABLET PO ×2 (08:49→14:53)
[2022-08-08] MEDS: Venlafaxine HCl ER 75 MG CAP.ER.24H 150 MG PO (08:49)
--- NOTE | 2022-08-08 09:07 | PC.NURSE ---
Pt Father in for visit.
--- NOTE | 2022-08-08 09:33 | PC.NURSE ---
Pt father has left
--- NOTE | 2022-08-08 09:48 | ECG_ITS ---
Test Reason : QT CK Blood Pressure : / mmHG Vent. Rate : 055 BPM Atrial Rate : 055 BPM P-R Int : 152 ms QRS Dur : 072 ms QT Int : 410 ms P-R-T Axes : 017 028 015 degrees QTc Int : 392 ms Sinus bradycardia Otherwise normal ECG When compared with ECG of 17-MAR-2021 15:06, Vent. rate has decreased BY 28 BPM Referred By: Iglesia Swanson Electronically Signed By:Campos Jonas
[2022-08-08 14:33] VITALS: BP 119/62; PULSE 80; RESP 16; TEMP 36.3; O2SAT 98
--- NOTE | 2022-08-08 18:41 | PC.ADMIT ---
Patient is an east timorese speaking female admitted to the unit on a CV at approx 1745. Pt was admitted after discussing her increased SI with her [facility] staff. The pt reported that even though the VNA brought her medications she was cheeking them so she could overdose. The pt was recently discharged from on 07/18/22. While on M3 pt made suicide attempt by wrapping a pillow case around her neck. Pt has a long history of hospitalizations and multiple suicide attempts. Pt was calm and cooperative during admission. Pt presented as depressed with a flat affect. Speech tone is quite, eye contact is poor and her energy is low. Pt reports that she attended 2 days at [facility] and became overwhelmed, feels helpless and hopeless. Pt reported that she has excessive sleepiness and has no motivation to do anything. Pt was placed on 1:1 supervision for safety.
[2022-08-08 22:20] VITALS: BP 121/67; PULSE 72; RESP 16; TEMP 36.2; O2SAT 98
[2022-08-08] MEDS: traZODone HCL 100 MG TABLET PO (22:23)
[2022-08-08] MEDS: Prazosin HCL 1 MG CAPSULE 4 MG PO (22:23)
[2022-08-08] MEDS: Divalproex Sodium ER 500 MG TAB.ER.24H PO (22:23)
[2022-08-08] MEDS: QUEtiapine Fumarate 100 MG TABLET PO (22:23)
[2022-08-09] MEDS: Acetaminophen 325 MG TABLET 650 MG PO (05:37)
[2022-08-09 06:00] VITALS: BP 118/74; PULSE 78; RESP 16; TEMP 36.2; O2SAT 98
[2022-08-09 07:45] LABS: Estimated Average Glucose 94 mg/dL; Hemoglobin A1c % 4.9 %
[2022-08-09 08:13] LABS: Alanine Aminotransferase 24 U/L (0-31); Albumin Level 3.7 g/dL (3.5-5.0); Alkaline Phosphatase 76 U/L (39-117); Anion Gap 9 (12-20); Aspartate Amino Transferase 26 U/L (5-31); Bilirubin Total 0.5 mg/dL (0.0-1.0); Blood Urea Nitrogen 6 mg/dL (9-16); Calcium 8.7 mg/dL (8.4-10.2); Carbon Dioxide 32 mmol/L (22-29); Chloride 105 mmol/L (96-108); Cholesterol 158 mg/dL; Creatinine Clr Calc Pharmacy 94.5; Estimated Glomerular Filt Rate > 60; Glucose Fasting 95 mg/dL (60-99); HDL Cholesterol 42 mg/dL; Potassium 3.8 mmol/L (3.3-5.1); Sodium 142 mmol/L (135-145); Total Protein 5.8 g/dL (6.5-8.0)
[2022-08-09] MEDS: QUEtiapine Fumarate 50 MG TABLET PO ×2 (08:31→15:59)
[2022-08-09] MEDS: Venlafaxine HCl ER 75 MG CAP.ER.24H 150 MG PO (08:31)
[2022-08-09 09:54] LABS: Free T4 (Free Thyroxine) 0.76 ng/dL (0.71-1.85); Thyroid Stimulating Hormone 1.41 uIU/mL (0.32-4.0)
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
[2022-08-09 15:59] LABS: LDL Cholesterol Calculated 82 mg/dl; Triglycerides 174 mg/dL
[2022-08-09 18:00] VITALS: BP 117/57; PULSE 82; RESP 16; TEMP 36.5; O2SAT 95
[2022-08-09] MEDS: Divalproex Sodium ER 500 MG TAB.ER.24H PO (21:42)
[2022-08-09] MEDS: Prazosin HCL 1 MG CAPSULE 4 MG PO (21:42)
[2022-08-09] MEDS: QUEtiapine Fumarate 100 MG TABLET PO (21:44)
[2022-08-09] MEDS: traZODone HCL 100 MG TABLET PO (21:44)
[2022-08-09 21:47] VITALS: BP 123/70; PULSE 96; RESP 16
[2022-08-09] MEDS: traZODone HCL 50 MG TABLET PO (22:28)
[2022-08-09] MEDS: hydrOXYzine HCL 50 MG TABLET PO (22:28)
[2022-08-10] MEDS: Acetaminophen 325 MG TABLET 650 MG PO (01:19)
[2022-08-10] MEDS: LORazepam 1 MG TABLET PO (01:41)
[2022-08-10 06:00] VITALS: BP 108/60; PULSE 80; RESP 16; TEMP 36.4; O2SAT 96
[2022-08-10] MEDS: QUEtiapine Fumarate 50 MG TABLET PO ×2 (10:28→15:45)
[2022-08-10] MEDS: Venlafaxine HCl ER 75 MG CAP.ER.24H 150 MG PO (10:28)
[2022-08-10] MEDS: hydrOXYzine HCL 50 MG TABLET PO (15:45)
--- NOTE | 2022-08-10 16:43 | P.PNPSI_ITS ---
Subjective Subjective Date of Service: 08/10/22 Reason For Visit: SI Interim History: pt reports SIBI last night but took a shower and went to bed in order to avoid acting. was thinking about trying to find something to scratch herself with. SIBI continues today, but trying to ignore it. review plan to establish appointments with outpt providers tomorrow and discharge soon thereafter. per staff, in behavioral control. slept about 6 hours overnight. isolative, withdrawn. eating. anx 6, dep 8. no SI. safe. some insomnia. Mental Status Exam Mental Status Exam Narrative: A&O. Somewhat disheveled appearance, in casual attire. Moderate eye contact, attentive. No Tics or Tremors. No abnormal involuntary movements. Withdrawn, difficult to engage. Non-pressured speech, spontaneous with regular rate and rhythm, quiet volume, decreased prosody. No prolonged speech latency or dysarthria. Mood is depressed, affect is constricted, hypo-intense, non-labile. +SIBI. no SI/HI/AVH expressed. No known cognitive or memory impairment. Insight/ Judgment limited but adequate. Diagnostics Vital Signs (24Hr): Vital Signs - 24 hr 08/09/22 21:47 08/09/22 18:00 08/10/22 06:00 Temperature 97.7 F 97.6 F Pulse Rate 96 82 80 Respiratory Rate 16 16 16 Blood Pressure 123/70 117/57 L 108/60 Pulse Oximetry 95 96 Oxygen Delivery Method Room Air Room Air BMI result Body Mass Index 36.2 Labs 08/07/22 14:55 08/09/22 07:17 Labs: Laboratory Results - last 48 hr 08/09/22 08/09/22 07:17 07:17 Sodium 142 Potassium 3.8 Chloride 105 Carbon Dioxide 32 H Anion Gap 9 L BUN 6 L Creatinine 0.84 Estim Creat Clear Calc 94.5 Estimated GFR > 60 Fasting Glucose 95 Estimat Average Glucose 94 Hemoglobin A1c % 4.9 Calcium 8.7 Total Bilirubin 0.5 AST 26 ALT 24 Alkaline Phosphatase 76 Total Protein 5.8 L Albumin 3.7 Triglycerides 174 Cholesterol 158 LDL Cholesterol, Calc 82 HDL Cholesterol 42 TSH 1.41 Free T4 0.76 Medications Medications Current Medications Acetaminophen (Acetaminophen 325 Mg Tablet) 650 mg PO Q6H PRN PRN Reason: Headache/Pain Mild Scale (1-3) Last Admin: 08/10/22 01:19 Dose: 650 mg Al Hydroxide/Mg Hydroxide (Magnesium Hydrox/Alum Hydrox 30 Ml Oral.Susp) 30 ml PO Q6H PRN PRN Reason: Heartburn/Nausea Divalproex Sodium (Divalproex Sodium Er 500 Mg Tab.Er.24h) 500 mg PO BEDTIME JEFFREY Last Admin: 08/09/22 21:42 Dose: 500 mg Hydroxyzine HCl (Hydroxyzine Hcl 50 Mg Tablet) 50 mg PO Q6H PRN PRN Reason: anxiety Last Admin: 08/10/22 15:45 Dose: 50 mg Magnesium Hydroxide (Milk Of Magnesia 30 Ml Oral.Susp) 30 ml PO DAILY PRN PRN Reason: Constipation Nicotine Polacrilex (Nicotine Polacrilex 2 Mg Gum) 2 mg BUCCAL Q2H PRN PRN Reason: Nicotine Cravings Prazosin HCl (Prazosin Hcl 1 Mg Capsule) 4 mg PO BEDTIME [facility]; Protocol Last Admin: 08/09/22 21:42 Dose: 4 mg Quetiapine Fumarate (Quetiapine Fumarate 50 Mg Tablet) 50 mg PO BID@0900,1500 [facility] Last Admin: 08/10/22 15:45 Dose: 50 mg Quetiapine Fumarate (Quetiapine Fumarate 100 Mg Tablet) 100 mg PO BEDTIME [facility] Last Admin: 08/09/22 21:44 Dose: 100 mg Trazodone HCl (Trazodone Hcl 50 Mg Tablet) 50 mg PO DAILY PRN PRN Reason: Insomnia Last Admin: 08/09/22 22:28 Dose: 50 mg Trazodone HCl (Trazodone Hcl 100 Mg Tablet) 100 mg PO BEDTIME [facility] Last Admin: 08/09/22 21:44 Dose: 100 mg Venlafaxine HCl (Venlafaxine Hcl Er 75 Mg Cap.Er.24h) 150 mg PO DAILY [facility] Last Admin: 08/10/22 10:28 Dose: 150 mg Zolpidem Tartrate (Zolpidem Tartrate 5 Mg Tablet) 5 mg PO BEDTIME PRN PRN Reason: Insomnia Allergies Allergies Allergy/AdvReac Type Severity Reaction Status Date / Time coconut Allergy Severe Anaphylaxis Verified 03/14/21 22:10 nut - unspecified [NUTS] Allergy Severe HIVES, Verified 03/14/21 23:05 DIFF BREATHING, THROAT SWELLS peanut Allergy Severe Anaphylaxis Verified 03/14/21 22:10 Assessment & Plan Assessment & Plan (1) MDD (major depressive disorder), recurrent severe, without psychosis: Status: Acute Code(s): F33.2 - Major depressive disorder, recurrent severe without psychotic features (2) TREY (generalized anxiety disorder): Status: Acute Code(s): F41.1 - Generalized anxiety disorder Plan continue home medications. observe for stability and safety. pt currently not wanting to attend [facility], will arrange for aftercare with her usual outpt providers on thursday. checks changed from 1:1 to Q5 min checks on pt's request. Reason for continued inpatient stay Substantial Risk for: harm to self, inability to function and rapid decompensation Time Spent With Patient Time: Total time managing care of this patient today ____ minutes.
[2022-08-10 20:45] VITALS: BP 118/77; PULSE 76; RESP 18; TEMP 36.2; O2SAT 97
[2022-08-10] MEDS: Divalproex Sodium ER 500 MG TAB.ER.24H PO (21:06)
[2022-08-10] MEDS: Prazosin HCL 1 MG CAPSULE 4 MG PO (21:06)
[2022-08-10] MEDS: traZODone HCL 100 MG TABLET PO (21:07)
[2022-08-10] MEDS: QUEtiapine Fumarate 100 MG TABLET PO (21:07)
[2022-08-11] MEDS: Zolpidem Tartrate 5 MG TABLET PO (00:48)
--- NOTE | 2022-08-11 06:51 | PC.NURSE ---
Angelica was noted to be sitting in the shower for a long period of time. during 1 set of rounds it was noted that she had ripped the snap off a pair of pants. she hid the sharp end and subsequently superficially scratched her right inner wrist. the patient gave the sharp snap to this insurance underwriter without difficulty. the would was cleaned and covered. Dr Chavez was made aware and the patient was placed back on 1:1 for safety. no further self injurious behaviors noted. continue Plan of Care
[2022-08-11 08:00] VITALS: BP 103/64; PULSE 71; RESP 18; TEMP 36.6; O2SAT 98
[2022-08-11] MEDS: QUEtiapine Fumarate 50 MG TABLET PO ×2 (08:28→14:02)
[2022-08-11] MEDS: Venlafaxine HCl ER 75 MG CAP.ER.24H 150 MG PO (08:29)
[2022-08-11] MEDS: hydrOXYzine HCL 50 MG TABLET PO (12:01)
--- NOTE | 2022-08-11 13:33 | PM.PSYDC ---
DS: Providers Provider Date of Service: 08/11/22 Date of admission: 08/08/22 17:20 Primary care physician: Elana Stephens MD DS: Diagnosis Discharge Diagnosis (1) MDD (major depressive disorder), recurrent severe, without psychosis: Status: Acute (2) TREY (generalized anxiety disorder): Status: Acute DS: Medications Discharge Medications Home Medications: Home Medications Medication Instructions Recorded Confirmed hydroxyzine HCl 50 mg tablet 50 mg PO Q6H PRN anxiety 08/07/22 08/07/22 prazosin 1 mg capsule 4 mg PO BEDTIME 08/07/22 08/07/22 quetiapine 50 mg tablet 50 mg PO BID 08/07/22 08/07/22 quetiapine 50 mg tablet 100 mg PO BEDTIME 08/07/22 08/07/22 trazodone 100 mg tablet 100 mg PO BEDTIME 08/07/22 08/07/22 trazodone 50 mg tablet 50 mg PO NEEDED PRN Insomnia 08/07/22 08/07/22 venlafaxine 75 mg capsule,extended 150 mg PO QAM 08/07/22 08/08/22 release 24 hr zolpidem 5 mg tablet 5 mg PO BEDTIME PRN Insomnia 08/07/22 08/07/22 divalproex 500 mg tablet,extended 500 mg PO BEDTIME 08/08/22 08/08/22 release 24 hr Mental Status Exam Mental Status Exam Narrative: Appearance: casual clothing, good hygiene, in NAD Behavior: cooperative Speech: clear, normal rate/rhythm/volume, spontaneous Psychomotor: no agitation or retardation noted TP: linear TC: no signs of psychosis, future oriented Mood: better Affect: congruent SI: denies, but does report this is chronic, intermittent HI: none VH/AH: none Delusions: none Insight/judgment: fair x 2. Memory/cog: alert, oriented x3. grossly intact to conversational testing. Data Data Completed and Pending Completed studies during hospitalization [Text1]: 08/07/22 08/07/22 08/07/22 14:54 14:55 14:55 WBC 6.6 RBC 4.77 Hgb 14.6 Hct 43.7 MCV 91.6 MCH 30.6 MCHC 33.4 RDW 12.3 Plt Count 213 D MPV 10.8 Immature Gran % (Auto) 0.3 Neut % (Auto) 48.7 Lymph % (Auto) 38.9 [place] % (Auto) 7.4 Eos % (Auto) 3.9 Baso % (Auto) 0.8 Lymph # (Auto) 2.6 [place] # (Auto) 0.5 Eos # (Auto) 0.3 Baso # (Auto) 0.1 Abs Immat Gran (auto) 0.02 Absolute Neuts (auto) 3.2 Absolute Nucleated RBC 0.000 Nucleated RBC % (auto) 0.0 Sodium 140 Potassium 3.8 Chloride 106 Carbon Dioxide 26 Anion Gap 12 BUN 7 L Creatinine 0.73 Estim Creat Clear Calc 108.8 Estimated GFR > 60 Random Glucose 84 Fasting Glucose Estimat Average Glucose Hemoglobin A1c % Calcium 9.1 Magnesium 2.0 Total Bilirubin 0.4 AST 23 ALT 21 Alkaline Phosphatase 86 Ammonia 55 Total Protein 6.8 Albumin 4.3 Triglycerides Cholesterol LDL Cholesterol, Calc HDL Cholesterol TSH Free T4 Urine Color Urine Appearance Urine pH Ur Specific [place] Urine Protein Urine Glucose (UA) Urine Ketones Urine Blood Urine Nitrite Ur Leukocyte Esterase Urine RBC Urine WBC Ur Squamous Epith Cells Urine Bacteria Hyaline Casts Salicylates < 5.0 L Urine Opiates Screen Urine Fentanyl Screen Acetaminophen < 17 Ur Barbiturates Screen Valproic Acid Ur Phencyclidine Scrn Ur Amphetamines Screen U Benzodiazepines Scrn Urine Cocaine Screen U Marijuana (THC) Screen Ethyl Alcohol COVID-19 (JEFF) COVID-19 Clin Com 08/07/22 08/07/22 08/07/22 14:55 14:55 14:55 WBC RBC Hgb Hct MCV MCH MCHC RDW Plt Count MPV Immature Gran % (Auto) Neut % (Auto) Lymph % (Auto) [place] % (Auto) Eos % (Auto) Baso % (Auto) Lymph # (Auto) [place] # (Auto) Eos # (Auto) Baso # (Auto) Abs Immat Gran (auto) Absolute Neuts (auto) Absolute Nucleated RBC Nucleated RBC % (auto) Sodium Potassium Chloride Carbon Dioxide Anion Gap BUN Creatinine Estim Creat Clear Calc Estimated GFR Random Glucose Fasting Glucose Estimat Average Glucose Hemoglobin A1c % Calcium Magnesium Total Bilirubin AST ALT Alkaline Phosphatase Ammonia Total Protein Albumin Triglycerides Cholesterol LDL Cholesterol, Calc HDL Cholesterol TSH Free T4 Urine Color Urine Appearance Urine pH Ur Specific [place] Urine Protein Urine Glucose (UA) Urine Ketones Urine Blood Urine Nitrite Ur Leukocyte Esterase Urine RBC Urine WBC Ur Squamous Epith Cells Urine Bacteria Hyaline Casts Salicylates Urine Opiates Screen Urine Fentanyl Screen Acetaminophen Ur Barbiturates Screen Valproic Acid 51.3 Ur Phencyclidine Scrn Ur Amphetamines Screen U Benzodiazepines Scrn Urine Cocaine Screen U Marijuana (THC) Screen Ethyl Alcohol < 10 COVID-19 (JEFF) Negative COVID-19 Clin Com See Note 08/07/22 08/07/22 08/09/22 14:57 17:46 07:17 WBC RBC Hgb Hct MCV MCH MCHC RDW Plt Count MPV Immature Gran % (Auto) Neut % (Auto) Lymph % (Auto) [place] % (Auto) Eos % (Auto) Baso % (Auto) Lymph # (Auto) [place] # (Auto) Eos # (Auto) Baso # (Auto) Abs Immat Gran (auto) Absolute Neuts (auto) Absolute Nucleated RBC Nucleated RBC % (auto) Sodium 142 Potassium 3.8 Chloride 105 Carbon Dioxide 32 H Anion Gap 9 L BUN 6 L Creatinine 0.84 Estim Creat Clear Calc 94.5 Estimated GFR > 60 Random Glucose Fasting Glucose 95 Estimat Average Glucose Hemoglobin A1c % Calcium 8.7 Magnesium Total Bilirubin 0.5 AST 26 ALT 24 Alkaline Phosphatase 76 Ammonia Total Protein 5.8 L Albumin 3.7 Triglycerides 174 Cholesterol 158 LDL Cholesterol, Calc 82 HDL Cholesterol 42 TSH 1.41 Free T4 0.76 Urine Color Dark Yellow Urine Appearance Cloudy Urine pH 5.5 Ur Specific [place] >= 1.030 H Urine Protein 30 (1+) H Urine Glucose (UA) Negative Urine Ketones 15 Urine Blood Large (3+) H Urine Nitrite Negative Ur Leukocyte Esterase Small (1+) H Urine RBC >20 H Urine WBC 0-5 Ur Squamous Epith Cells 11-20 Urine Bacteria 1+ Hyaline Casts 0-2 Salicylates Urine Opiates Screen Not Detected Urine Fentanyl Screen Not Detected Acetaminophen Ur Barbiturates Screen Not Detected Valproic Acid Ur Phencyclidine Scrn Not Detected Ur Amphetamines Screen Not Detected U Benzodiazepines Scrn Not Detected Urine Cocaine Screen Not Detected U Marijuana (THC) Screen Not Detected Ethyl Alcohol COVID-19 (JEFF) COVID-19 Clin Com 08/09/22 07:17 WBC RBC Hgb Hct MCV MCH MCHC RDW Plt Count MPV Immature Gran % (Auto) Neut % (Auto) Lymph % (Auto) [place] % (Auto) Eos % (Auto) Baso % (Auto) Lymph # (Auto) [place] # (Auto) Eos # (Auto) Baso # (Auto) Abs Immat Gran (auto) Absolute Neuts (auto) Absolute Nucleated RBC Nucleated RBC % (auto) Sodium Potassium Chloride Carbon Dioxide Anion Gap BUN Creatinine Estim Creat Clear Calc Estimated GFR Random Glucose Fasting Glucose Estimat Average Glucose 94 Hemoglobin A1c % 4.9 Calcium Magnesium Total Bilirubin AST ALT Alkaline Phosphatase Ammonia Total Protein Albumin Triglycerides Cholesterol LDL Cholesterol, Calc HDL Cholesterol TSH Free T4 Urine Color Urine Appearance Urine pH Ur Specific [place] Urine Protein Urine Glucose (UA) Urine Ketones Urine Blood Urine Nitrite Ur Leukocyte Esterase Urine RBC Urine WBC Ur Squamous Epith Cells Urine Bacteria Hyaline Casts Salicylates Urine Opiates Screen Urine Fentanyl Screen Acetaminophen Ur Barbiturates Screen Valproic Acid Ur Phencyclidine Scrn Ur Amphetamines Screen U Benzodiazepines Scrn Urine Cocaine Screen U Marijuana (THC) Screen Ethyl Alcohol COVID-19 (JEFF) COVID-19 Clin Com 08/07/22 17:46 Urine clean catch - Urine oneill top Urine Culture - Final DS: Summary Hospital Course Hospital Course: HPI: Ms. Moreno is a 36 year-old woman with hx of borderline personality traints, PTSD, MDD who was referred to [facility] ED as she reported not feeling safe at home. On the unit, pt reports she was still trying to dig my way out of being depressed since her most recent discharge from this unit several weeks ago.? she had seen her usual outpt providers for two weeks and then started [facility] this past week.? she reports having had a rough first 2 days, broaching some difficult material in groups which brought up some challenging emotions for her.? at the end of the second day the staff asked questions about safety and she declined to answer them.? ultimately she informed them she can be impulsive and that she had been stockpiling meds at home for an overdose, and they referred her to the ED.? she also broaches she had had a bad night the night prior, fighting with her daughter over the various responsibilities of sharing a house with someone else.? she did mention that after her most recent hospitalization here, her daughter did decide to remain living with her and commute to nursing school, which starts in the fall, rather than move out.? she denies SI and states she is not having SIBI and would like to not be on 1:1 observation.? agrees to change to Q5 min checks for now.? she states she really didn't want to be admitted and does not feel it is necessary right now.? she would like to discharge and not return to PHP, but rather return to treatment as usual with her outpatient providers.? she has signed a 3-day notice. HOSPITAL COURSE Ms. Moreno is a 36 year-old woman who is known to the unit through previous admission with similar presentation. On the unit, pt was admitted on a CV and she signed a 3 day notice. Pt presents with chronic, intermittent self injurious behaviors that are not always reflection of true suicidality but instead ways of coping with emotional distress. Pt reports it was difficult to engage in PHP programming as groups discussed topics that were triggers. She reports she has been in communication with her outpatient therapist and thinks that it is best to increase individual therapy to twice a week. Pt does report that part of the work she is working on with her therapist is looking at interpersonal dynamics that trigger self injurious behaviors and on developing safety plan in that she can utilize other strategies rather than jumping to self harm behaviors. Pt is taking medications as prescribed. She denies suicidal or homicidal ideation. She is sleeping and eating well. She denies side effects with current medications. She presents as future oriented in that she is looking forward to see her daughter and her father. Status at Discharge Cognitive/behavioral status at discharge: Pt with brighter, non labile affect. Chronic, intermittent self injurious behaviors not always true reflection of suicidality but maladaptive way of coping with emotional distress. Pt presents as future oriented looking forward to see family but does note that mood changes day to day and there are specific triggers that affect her ability to self regulate and engage in self injurious behaviors. No signs of psychosis or delusional content noted or reported. No signs of aggression towards self or others. Functional status at discharge: independent ambulation Overall status at discharge: patient is progressing back to baseline Time Spent with Patient Time attestation: Total time managing care of this patient today _30___ minutes. Time spent: Greater than 30 minutes Discharge Plan Discharge Anticipated Discharge Date/Time: 08/11/22 13:28 Patient Disposition: Home, Self-Care Discharge Diagnosis: BPD MDD Referrals: [facility] [Other] - 09/03/22 9:00 am (Appointment was change to IN PERSON) Elana Stephens MD [Primary Care Provider] - 08/22/22 9:15 am Discharge Medications: Continued prazosin 1 mg capsule 4 mg PO BEDTIME hydroxyzine HCl 50 mg tablet 50 mg PO Q6H PRN (Reason: anxiety) trazodone 100 mg tablet 100 mg PO BEDTIME trazodone 50 mg tablet 50 mg PO NEEDED PRN (Reason: Insomnia) quetiapine 50 mg tablet 100 mg PO BEDTIME quetiapine 50 mg tablet 50 mg PO BID venlafaxine 75 mg capsule,extended release 24hr 150 mg PO QAM zolpidem 5 mg Tablet 5 mg PO BEDTIME PRN (Reason: Insomnia) divalproex 500 mg tablet extended release 24 hr 500 mg PO BEDTIME Discontinued divalproex 500 mg tablet,delayed release (DR/EC) 500 mg PO BEDTIME Discharge Orders: Discharge Order (Routine); Ordered 08/11/22 Ordered By: Ángela Finch Diet: Regular diet Activity on Discharge: As tolerated Stand Alone Forms: Patient Portal Discharge page Care Plan Goals: 1. Maintain mood 2. No SI/HI 3. No self injurious behaviors Health Concerns: Follow up with PCP Plan of Treatment: 1. Take medications as prescribed 2. Go to nearest ED or call 911 in event of emergency Assessment: Pt with brighter, non labile affect. Chronic, intermittent self injurious behaviors not always true reflection of suicidality but maladaptive way of coping with emotional distress. Pt presents as future oriented looking forward to see family but does note that mood changes day to day and there are specific triggers that affect her ability to self regulate and engage in self injurious behaviors. No signs of psychosis or delusional content noted or reported. No signs of aggression towards self or others.
--- NOTE | 2022-08-11 14:35 | PC.NURSE ---
1430 reviewed instructions medications and appointments with Angelica, she verbalized understanding. She denies SI/HI/AH/VH at this time. Pt was walked out to back parking lot near Emergency Entrance where her car was parked.
== END 2022-08-11 14:30 | disposition home or self-care (01) | DRG 885 ==
LOC: HO.ED 20:49 → HO.PADLT16 08-08 17:32
PROVIDERS: Physician Assistant; Admitting Provider Psychiatry & Neurology Psychiatry; Emergency Provider Student in an Organized Health Care Education/Training Program; PCP Hospitalist; Visit Provider Social Worker
DX: F33.2 Major depressive disorder, recurrent severe without psychotic features (principal); R45.851 Suicidal ideations; F43.10 Post-traumatic stress disorder, unspecified; F41.1 Generalized anxiety disorder; I10 Essential (primary) hypertension; Z91.52 Personal history of nonsuicidal self-harm; Z98.84 Bariatric surgery status; Z79.899 Other long term (current) drug therapy
CPT/HCPCS: 36415; 80053; 80061; 80143; 80164; 80179; 80307; 81001; 82077; 82140; 83036; 83735; 84439; 84443; 85025; 87086; 87635; 93005; 99285; S9485

== ENCOUNTER 2022-08-21 09:45 | Outpatient (RCR) | payer OTHER, SELFPAY ==
[2022-08-13 13:01] VITALS: BP 108/64; PULSE 80; TEMP 36.9
[2022-08-13 13:07] VITALS: BMI 37.1
--- NOTE | 2022-08-14 08:16 | PC.NURSE ---
Addendum entered by Samantha Rowell RN 08/14/22 08:31: PHP team is aware. Original Note: Angelica called and left a voicemail yesterday stating she will not be in the program on as she has an appoinment with her insurance company at 10:30 and is not able to change it. I called Angelica to f/u. She reports she is safe and plans on coming to the program on Thursday.
--- NOTE | 2022-08-14 15:36 | HO.PHP ---
Clients case was reviewed and opened today in treatment team.
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
--- NOTE | 2022-08-19 09:20 | HO.PHP ---
I called the client to inquire about her absence. She states that she has a medical appointment today and will be in tomorrow . She states that she is safe.
--- NOTE | 2022-08-20 13:37 | PC.NURSE ---
Staff stated to me that Angelica stopped taking her night medications. I checked in with her and she stated she sometimes forgets to take her medications or sometimes she does not want to take them stating, what's the use . Asked patient if she was having any thoughts to kill herself and she stated she has thoughts and a plan however denied intent to act on them. I asked her if she was safe and she stated she would be safe. Does not feel she needs to go into the hospital at this time. Patient has the crisis numbers if needed. She stated she thinks she will feel better after she sees her therapist tomorrow as her therapist has been on vacation. She stated she has an appointment with her therapist at 2:30 tomorrow and plans on seeing her after she attends [facility]. I spoke to Angelica's visiting nurse Kings and let him know that Angelica has not been taking her night time medications. He stated it was only last night that she did not take them as she gave him the medications she did not take last night this morning. I asked if he could come to see Angelica at night to administer her bedtime medications in addition to the morning. He stated the cut off time would be 7pm and that would be too early to take her night medications however he could come to give her her other medications due in the evening and could call her to remind her to take her bedtime medications. I let Angelica know that I spoke to Kings regarding the above recommendations and Kings will be calling Angelica to set this up with her. [facility] staff is aware.
--- NOTE | 2022-08-20 15:52 | HO.PHP ---
PHP staff met with Angelica after the third group due to her making concerning statements around her depression. PHP staff explored with Angelica if she felt safe. Angelica began crying and mentioned she has no intent to do anything at this time. PHP staff asked Angelica if she has been taking her medication reguraly. Angelica mentioned she has been taking her morning medication but not her night time medicine. PHP staff assessed why she has not been taking her night time medication, in which Angelica disclosed that she doesn't want to sometimes or forgets. PHP staff asked Angelica the longest period of time she was on medication consistently. Angelica voiced 2 weeks. PHP staff provided psychoeducation around medication effectiveness. Angelica was receptive. PHP staff reviewed with Angelica again if she feels she is going to be safe tonight. Angelica said she was going to be.
--- NOTE | 2022-08-20 15:56 | HO.PHP ---
[facility] staff followed up with Angelica prior to program ending to review safety. [facility] staff informed her of concerns providers have around safety and suggested that we contact her father and daughter to develop a safety plan for bailey. Angelica asked why we had to involve her daughter. [facility] staff stated that her daughter is the only individual living with her, therefore, the one who can help provide support if needed. Angelica was receptive and signed a release. [facility] staff informed Angelica what she was going to say prior to contacting family members to prepare her. [facility] staff spoke to Angelica's daughter, in which she was in agreement to supporting her mother bailey and will be home. Angelica's father did not answer and a message was left. [facility] staff also encouraged Angelica if she is struggling tonight to please contact the crisis hotline. Angelica was receptive and has the information for [facility] Crisis. Angelica then returned to group.
--- NOTE | 2022-08-20 16:09 | HO.PHP ---
[facility] staff received a VM from Angelica's father. [facility] staff contacted Angelica's father back. Angelica's father mentioned that he just got off the phone with his daughter and granddaughter. [facility] staff informed Angelica's father that she was reaching out to see if he could help support Angelica today since she made some concerning statements in group. Angelica's father mentioned that he is in [facility] but is going to follow up with her tonight via telephone and also try to have Angelica's sister stop in to see her. Angelica's father also mentioned he encouraged the granddaughter to do what the mother asks to not trigger a negative response from Angelica, in which he said she was receptive to and will be home. [facility] staff thanked Angelica's father for providing Angelica with support bailey. Angelica's father thanked the staff member for informing him.
--- NOTE | 2022-08-21 06:19 | HO.PHP ---
[facility] staff met with Angelica to review treatment plan. After finishing the review, [facility] staff followed up with Angelica to see how her night had gone. Angelica mentioned that it was okay and she didn't do anything. [facility] staff was receptive and explored safety and asked questions around medication. Angelica informed [facility] staff that she was stock piling pills. PHP staff assessed what she was planning on doing with those pills. Angelica sat quietly and shrugged her shoulders and mumbled she didn't know. [facility] staff asked Angelica if she would be willing to give the medication to her VNA when he comes. Angelica shook her head yes. [facility] staff allowed Angelica to return to [facility]. PHP staff still had safety concerns and spoke with the nurse regarding what Angelica disclosed. The nurse further reviewed with the psychiatrist and then then psychiatrist met with Angelica for further assessment.
--- NOTE | 2022-08-21 12:02 | PC.NURSE ---
Angelica met with Verenice Santos CNP this morning. Angelica not able to contract for safety. Reports she is stockpiling her medications with a plan to overdose. Section [address] obtained and patient on her way to [facility] ER POD for an evaluation with crisis. Security and PHP staff Pam escorting Angelica to the ER. Notified Melissa RN in the POD and bed is available for Angelica. Karon in the ER is also aware and I was unable to talk to the charge nurse as she was not available.
--- NOTE | 2022-08-21 13:14 | HO.PHPPROGNO ---
Subjective Subjective Date of Service: 08/21/22 Reason For Visit: MDD Medical Problems Affecting Mental Status: No Interim History: This resume writer asked to meet with patient this morning after making statements in group and when meeting with clinician that she did not feel safe, has been stockpiling her medications at home. Patient has a history of SI attempts, frequent hospitalizations, multiple inpatient stays since April of this year. Patient appears blunted, flat affect. Psychomotor retardation. Slow to respond verbally as well. Little eye contact. States that she feels depressed, with no improvement since being in program. When asked if she has been stockpiling her medications at home, she states that she has been not taking her night medications but saving them, states she has a 3-4 day supply at home. These include Depakote, prazosin, quetiapine, trazodone, zolpidem. When asked what she plans to do with the medications, she states ?I do not know ?. When asked if she was thinking of taking the medications in order to harm herself, she states that she does have a plan to do so, and then stated ?but I do not have intent right now ?. When asked if she felt safe, she was unable to say yes, but rather looked away without answering. when asked if she could give her medications to her visiting nurse, that we would send the VNA over there later today to pickle water pump operator the meds, she stated no . She stated that she could give her meds in the morning, but did not want to give them to him today. When asked again if she felt safe, she states ?I struggle every day ?. Medication Compliance: No Side effects from medications: No Attending Groups: Yes Review of Systems Acute medical concerns: No Medical Review of Systems: unchanged Review of Systems Review of Systems Yes all other systems are reviewed and are negative Constitutional: Reports no additional constitutional complaints Mental Status Exam Mental Status Exam Narrative: Flat, blunted affect. Withdrawn. Psychomotor retardation. SI with plan, unable to say that she feels safe today. Patient Appearance: Fatigued Patient Orientation: Person, Place, Time and Situation Level of Consciousness: Appropriate Patient Behavior: Fatigued and Poor Eye Contact Mood Description: Depressed Affect Description: Depressed, Blunted and Flat Patient Cognition Impaired: No Ability to Follow Directions: Good Speech Pattern: Soft-Spoken and Long Pauses Memory Description: Intact Hallucinations: None Delusions: Not Present Thought Process: Intact Thought Content: positive for Suicidal Ideation Depressive Symptoms: Unhappiness, Increased Fatigue, Thoughts of /Suicide, Low Self Esteem and Loss of Energy Abnormal Motor Activity Signs and Symptoms: Psychomotor Retardation Judgement: Poor Diagnostics Vital Signs (24Hr): BMI result Body Mass Index 37.1 Assessment & Plan Assessment & Plan (1) MDD (major depressive disorder), recurrent severe, without psychosis: Status: Acute Code(s): F33.2 - Major depressive disorder, recurrent severe without psychotic features Assessment and Plan: Patient presents with depressed, flat, blunted affect. Reports she has been stockpiling her bedtime meds, with a plan to suicide by overdose. States that she does not intent to act on it this morning. When asked further, she is unable to report that she feels safe today. She was unwilling to have VNA come to house this afternoon or evening to pickle water pump operator the night meds. Discussed meeting with crisis, she was unwilling to do so. (2) TREY (generalized anxiety disorder): Status: Acute Code(s): F41.1 - Generalized anxiety disorder Plan Consulted with director behavior Health, PHP marketing analytics manager, assigned clinician, program RN, project management director. Patient is escorted to this hospital ED under Section 12A. Patient educated on: diagnosis and medication risk/benefits Informed Consent: understands Reason for contiued partial hosp. stay Substantial Risk for: harm to self, inability to function, rapid decompensation and med/psych decompensation Certification I certify that partial hospital treatment is medically necessary due to the symptoms and problems resulting from the patient's mental illness and the failure to treat the patient at the partial hospital level of care would likely result in the patient requiring inpatient psychiatric care which could not be prevented at a less intensive level of care. Total time managing care of this patient today ___20_ minutes. Discharge Plan Discharge Attending provider: Familia Pina Medications: No Action prazosin 1 mg capsule 4 mg PO BEDTIME hydroxyzine HCl 50 mg tablet 50 mg PO Q6H PRN (Reason: anxiety) trazodone 100 mg tablet 100 mg PO BEDTIME trazodone 50 mg tablet 50 mg PO NEEDED PRN (Reason: Insomnia) quetiapine 50 mg tablet 100 mg PO BEDTIME quetiapine 50 mg tablet 50 mg PO BID venlafaxine 75 mg capsule,extended release 24hr 150 mg PO QAM zolpidem 5 mg Tablet 5 mg PO BEDTIME PRN (Reason: Insomnia) divalproex 500 mg tablet extended release 24 hr 500 mg PO BEDTIME
--- NOTE | 2022-08-21 16:17 | HO.PHP ---
I spoke with the client about our concern for her safety RE not taking night meds, reported suicidal thoughts and plan. Possibly holding night meds for overdose. We discussed going to the ED for a crisis evaluation. Although she was hesitant she eventually agreed to be walked to the ED for the evaluation. I walked her down and waited until she was taken in by the nurse.
== END 2022-08-21 23:59 | disposition admitted as inpatient to this hospital (09) ==
LOC: HO.PHPA 09:45
PROVIDERS: Visit Provider Psychiatry & Neurology Psychiatry
DX: F33.2 Major depressive disorder, recurrent severe without psychotic features (principal); F41.1 Generalized anxiety disorder
CPT/HCPCS: 90791; 90853

== ENCOUNTER 2022-08-21 12:02 | Inpatient (IN) | payer OTHER, SELFPAY ==
--- NOTE | 2022-08-21 12:50 | ED.PSYCH ---
HPI - Psych General Chief Complaint: Psychiatric Symptoms Stated Complaint: crisis Time Seen by Provider: 08/21/22 12:49 Source: patient, RN notes reviewed and old records reviewed Mode of arrival: ambulatory History of Present Illness HPI Narrative: 36-year-old woman with history borderline personality traits, PTSD, major depressive disorder, recently discharged from our facility on 08/11, presenting to the ED complaining of increasing depression with suicidal ideations. Denies plan, HI, EtOH or illicit drug use. States she has been compliant with medications. Denies insomnia, abdominal pain, nausea/vomiting, CP/SOB, fever/chills. MD complaint: suicidal ideation and feels depressed Related Data Home Medications Medication Instructions Recorded Confirmed hydroxyzine HCl 50 mg tablet 50 mg PO Q6H PRN anxiety 08/07/22 08/21/22 prazosin 1 mg capsule 4 mg PO BEDTIME 08/07/22 08/21/22 quetiapine 50 mg tablet 50 mg PO BID PRN Anxiety 08/07/22 08/21/22 quetiapine 50 mg tablet 100 mg PO BEDTIME 08/07/22 08/21/22 trazodone 100 mg tablet 100 mg PO BEDTIME 08/07/22 08/21/22 trazodone 50 mg tablet 50 mg PO NEEDED PRN Insomnia 08/07/22 08/21/22 zolpidem 5 mg tablet 5 mg PO BEDTIME PRN Insomnia 08/07/22 08/21/22 divalproex 500 mg tablet,extended 500 mg PO BEDTIME 08/08/22 08/21/22 release 24 hr venlafaxine 150 mg 150 mg PO QAM 08/21/22 08/21/22 capsule,extended release 24 hr Allergies Allergy/AdvReac Type Severity Reaction Status Date / Time coconut Allergy Severe Anaphylaxis Verified 08/21/22 13:37 nut - unspecified [NUTS] Allergy Severe HIVES, Verified 08/21/22 13:37 DIFF BREATHING, THROAT SWELLS peanut Allergy Severe Anaphylaxis Verified 08/21/22 13:37 Review of Systems Review of Systems: Constitutional: No Fever, No Chills, No Fatigue, No Malaise ENT/Mouth: No Ear Pain,No sore throat, No Rhinorrhea, No Swallowing Difficulty Eyes: No Eye Pain, No Swelling, No Redness, No Vision Changes Cardiovascular: No Chest Pain, No SOB Respiratory: No Cough, No Sputum, No Dyspnea Gastrointestinal: No Nausea, No Vomiting, No Diarrhea, No Constipation, No Abdominal pain Musculoskeletal: No joint pain Skin: No Skin Lesions, No rash Neuro: No Weakness, No Headache Psych: No Anxiety/Panic, + Depression, + SI, No HI/AH/VH, No Social Issues Yes all other systems are reviewed and are negative Constitutional: Constitutional: Reports as per [facility] Past Medical History Attestation statement: The following information was validated with the patient. Source: old records reviewed Medical History Atypical chest pain TREY (generalized anxiety disorder) GERD (gastroesophageal reflux disease) HTN (hypertension) MDD (major depressive disorder), recurrent severe, without psychosis Mixed hyperlipidemia MARIA TERESA (obstructive sleep apnea) Post traumatic stress disorder (PTSD) Routine history and physical examination of adult Vitamin B 12 deficiency Surgical History H/O gastric bypass Hx of cholecystectomy Family History Family History Mother Heart disease Social History Social History Household Members: Children Household Members Other:: 17 yo daughter Housing: Apartment Do you presently have visiting nurse or other home services: Yes Alcohol intake: current Alcohol intake frequency: does not drink Patient Tobacco Use Status: Never used Tobacco Advance Directives: Yes Advance Directives Information Provided: Yes Advance Directives on File: No service: No Sexual orientation: Straight/Heterosexual Physical Exam Vital Signs: Vital Signs: Last Vital Signs Temp 98.9 F 08/21/22 13:21 Pulse 75 08/21/22 13:21 Resp 18 08/21/22 13:21 BP 119/77 08/21/22 13:21 Pulse Ox 96 08/21/22 13:21 O2 Del Method Room Air 08/21/22 13:21 BMI result Body Mass Index 37.5 Const: General: cooperative, healthy appearing, no acute distress, alert and awake Orientation/consciousness: patient oriented x3 Limitations: no limitations HEENT: Head: Yes normal to inspection and Yes atraumatic Ears: hearing grossly normal bilaterally General nose exam: Normal external nose present Face and sinus: Yes normal facial exam Throat: Yes posterior oropharynx normal and Yes uvula midline Eyes: General: appearance normal, both eyes and all related structures EOM: EOMs intact bilaterally Neck: Neck: Yes normal visual inspection and Yes no meningeal signs Resp: Effort & Inspection: normal respiratory effort and no respiratory distress Auscultation: clear to auscultation bilaterally Cardio: Rate: regular rate Heart sounds: S1 normal heart sound present and S2 normal heart sound present GI: Inspection: Yes normal to inspection Palpation (GI): Soft to palpation, nontender, no guarding and not rigid Skin: Rashes: no rashes Wounds: no wounds Neuro: General: patient oriented x3, tone normal, moves all extremities, no meningeal signs, no focal motor deficits and CN's II-XI intact bilaterally Extrem: General: Yes normal to inspection Psych: Affect: Sad affect present Attitude: cooperative Thought content: Suicidality present, no homicidality and Depressive thoughts present Course Course Course Narrative: - labs reassuring. Valproic acid level low -1630-- ED care transferred to [facility]in[facility] CARE team eval Medical Decision Making Medical Decision Making MDM Narrative: 36-year-old woman with history borderline personality traits, PTSD, major depressive disorder, recently discharged from our facility on 08/11, presenting to the ED complaining of increasing depression with suicidal ideations. On exam vital signs stable, NAD, sad/depressed, cooperative, suicidal. Concern for depression/SI. Lower suspicion for metabolic abnormalities Plan: Labs, COVID-19 testing, UA, CARE team consult Please refer to course for remaining clinical decision making, interpretation of labs/imaging results, and discussions with consultants and/or family members. Differential Diagnosis Differential Diagnoses: The differential diagnosis associated with the presentation includes As above Admission/Observation Consideration of admission/observation: Escalation of care including admission/observation considered Lab Data [facility] Lab Attestation statement: I reviewed the patient's lab results. 08/21/22 14:45 08/21/22 14:45 Labs: Lab Results 08/21/22 08/21/22 08/21/22 Range/Units 12:44 12:44 12:44 WBC (4.8-10.8) X10*3/uL RBC (4.20-5.50) X10*6/uL Hgb (12.0-16.0) g/dl Hct (37.0-47.0) % MCV (80.0-98.0) fL MCH (27.0-33.0) pg MCHC (31.0-35.0) g/dl RDW (11.0-16.0) % Plt Count (160-400) X10*3/uL MPV (9.4-12.3) fL Immature Gran % (Auto) (0.0-0.4) % Neut % (Auto) (45-73) % Lymph % (Auto) (20-40) % [place] % (Auto) (2-11) % Eos % (Auto) (0-4) % Baso % (Auto) (0-2) % Lymph # (Auto) (1.2-4.9) X10*3/uL [place] # (Auto) (0.1-1.2) X10*3/uL Eos # (Auto) (0.0-0.4) X10*3/uL Baso # (Auto) (0.0-0.2) X10*3/uL Abs Immat Gran (auto) (0.00-0.03) X10*3/uL Absolute Neuts (auto) (2.0-8.3) x10*3/uL Absolute Nucleated RBC (0.0-0.012) X10*3/uL Nucleated RBC % (auto) (0.0-0.2) /100WBC Sodium (135-145) mmol/L Potassium (3.3-5.1) mmol/L Chloride (96-108) mmol/L Carbon Dioxide (22-29) mmol/L Anion Gap (12-20) BUN (9-16) mg/dL Creatinine (0.5-1.4) mg/dL Estim Creat Clear Calc Estimated GFR Random Glucose (60-115) mg/dL Calcium (8.4-10.2) mg/dL Magnesium (1.6-2.6) mg/dL Total Bilirubin (0.0-1.0) mg/dL AST (5-31) U/L ALT (0-31) U/L Alkaline Phosphatase (39-117) U/L Total Protein (6.5-8.0) g/dL Albumin (3.5-5.0) g/dL Urine Color Dark Yellow Urine Appearance Cloudy Urine pH 6.0 (5.0-9.0) Ur Specific [place] >= 1.030 H (1.005-1.025) Urine Protein Trace (Neg-Trace) mg/dL Urine Glucose (UA) Negative (Negative) mg/dL Urine Ketones Trace (Negative) mg/dL Urine Blood Negative (Negative) Urine Nitrite Negative (Negative) Ur Leukocyte Esterase Negative (Negative) Urine Opiates Screen Not Detected (Not Detect) Urine Fentanyl Screen Not Detected (Not Detect) Ur Barbiturates Screen Not Detected (Not Detect) Valproic Acid (50.0-100.0) mcg/mL Ur Phencyclidine Scrn Not Detected (Not Detect) Ur Amphetamines Screen Not Detected (Not Detect) U Benzodiazepines Scrn Not Detected (Not Detect) Urine Cocaine Screen Not Detected (Not Detect) U Marijuana (THC) Screen Not Detected (Not Detect) Ethyl Alcohol mg/dL COVID-19 (JEFF) Negative (Negative) COVID-19 Clin Com See Note 08/21/22 08/21/22 08/21/22 Range/Units 14:45 14:45 14:45 WBC 6.0 (4.8-10.8) X10*3/uL RBC 4.54 (4.20-5.50) X10*6/uL Hgb 14.1 (12.0-16.0) g/dl Hct 41.8 (37.0-47.0) % MCV 92.1 (80.0-98.0) fL MCH 31.1 (27.0-33.0) pg MCHC 33.7 (31.0-35.0) g/dl RDW 12.7 (11.0-16.0) % Plt Count 199 (160-400) X10*3/uL MPV 10.2 (9.4-12.3) fL Immature Gran % (Auto) 0.2 (0.0-0.4) % Neut % (Auto) 45.8 (45-73) % Lymph % (Auto) 39.2 (20-40) % [place] % (Auto) 6.9 (2-11) % Eos % (Auto) 6.9 H (0-4) % Baso % (Auto) 1.0 (0-2) % Lymph # (Auto) 2.3 (1.2-4.9) X10*3/uL [place] # (Auto) 0.4 (0.1-1.2) X10*3/uL Eos # (Auto) 0.4 (0.0-0.4) X10*3/uL Baso # (Auto) 0.1 (0.0-0.2) X10*3/uL Abs Immat Gran (auto) 0.01 (0.00-0.03) X10*3/uL Absolute Neuts (auto) 2.7 (2.0-8.3) x10*3/uL Absolute Nucleated RBC 0.000 (0.0-0.012) X10*3/uL Nucleated RBC % (auto) 0.0 (0.0-0.2) /100WBC Sodium 142 (135-145) mmol/L Potassium 4.0 (3.3-5.1) mmol/L Chloride 108 (96-108) mmol/L Carbon Dioxide 27 (22-29) mmol/L Anion Gap 11 L (12-20) BUN 5 L (9-16) mg/dL Creatinine 0.75 (0.5-1.4) mg/dL Estim Creat Clear Calc 108.0 Estimated GFR > 60 Random Glucose 99 (60-115) mg/dL Calcium 8.8 (8.4-10.2) mg/dL Magnesium 2.1 (1.6-2.6) mg/dL Total Bilirubin 0.4 (0.0-1.0) mg/dL AST 23 (5-31) U/L ALT 25 (0-31) U/L Alkaline Phosphatase 73 (39-117) U/L Total Protein 6.0 L (6.5-8.0) g/dL Albumin 3.9 (3.5-5.0) g/dL Urine Color Urine Appearance Urine pH (5.0-9.0) Ur Specific [place] (1.005-1.025) Urine Protein (Neg-Trace) mg/dL Urine Glucose (UA) (Negative) mg/dL Urine Ketones (Negative) mg/dL Urine Blood (Negative) Urine Nitrite (Negative) Ur Leukocyte Esterase (Negative) Urine Opiates Screen (Not Detect) Urine Fentanyl Screen (Not Detect) Ur Barbiturates Screen (Not Detect) Valproic Acid 39.0 L (50.0-100.0) mcg/mL Ur Phencyclidine Scrn (Not Detect) Ur Amphetamines Screen (Not Detect) U Benzodiazepines Scrn (Not Detect) Urine Cocaine Screen (Not Detect) U Marijuana (THC) Screen (Not Detect) Ethyl Alcohol < 10 mg/dL COVID-19 (JEFF) (Negative) COVID-19 Clin Com Radiology Impression Discussion of test interpretation with radiology: I have reviewed the radiologist's reading. External Record Review External record reviewed: Inpatient record, Office record, Outpatient record, Prior outpatient labs, Prior outpatient radiology, Primary care record and Outside ED record Tests considered The following testing was considered but not selected: As above Discharge Plan Discharge Clinical Impression: Suicidal ideations, Depression Patient Disposition: Still a Patient Prescriptions: No Action prazosin 1 mg capsule 4 mg PO BEDTIME hydroxyzine HCl 50 mg tablet 50 mg PO Q6H PRN (Reason: anxiety) trazodone 100 mg tablet 100 mg PO BEDTIME trazodone 50 mg tablet 50 mg PO NEEDED PRN (Reason: Insomnia) quetiapine 50 mg tablet 100 mg PO BEDTIME quetiapine 50 mg tablet 50 mg PO BID PRN (Reason: Anxiety) zolpidem 5 mg Tablet 5 mg PO BEDTIME PRN (Reason: Insomnia) divalproex 500 mg tablet extended release 24 hr 500 mg PO BEDTIME venlafaxine 150 mg capsule,extended release 24hr 150 mg PO QAM Interventions: [place]-Suicide Risk Severity Scale Last Done: 08/21/22 13:29
[2022-08-21 13:00] LABS: Appearance Urine Cloudy; Color Urine Dark Yellow; Glucose Urine UA Negative (Negative); Leukocyte Esterase Urine Negative (Negative); Nitrite Urine Negative (Negative); Specific Gravity - Urine >= 1.030 (1.005-1.025); Urine Blood Negative (Negative); Urine Ketones Trace mg/dL (Negative); Urine Protein Trace mg/dL (Neg-Trace)
[2022-08-21 13:03] LABS: Amphetamine Screen Urine Not Detected (Not Detect); Barbiturates, Urine Not Detected (Not Detect); Benzodiazepines Screen Urine Not Detected (Not Detect); Cannabinoid Screen Urine Not Detected (Not Detect); Cocaine Screen Urine Not Detected (Not Detect); Fentanyl, urine Not Detected (Not Detect); Opiate Screen Urine Not Detected (Not Detect); Phencyclidine Screen Urine Not Detected (Not Detect)
[2022-08-21 13:07] LABS: COVID-19 Test Negative (Negative); IDNOW Serial# 08D9AD1C
[2022-08-21 13:21] VITALS: BP 119/77; PULSE 75; RESP 18; TEMP 37.2; O2SAT 96; BMI 37.5
--- NOTE | 2022-08-21 13:54 | PHA.MEDREC ---
Pharmacy Consult ? Medication Reconciliation Pharmacy has completed the medication reconciliation. Patient discharge 08/13 from [facility]. Med rec completed by discharge summary. Ricarda Reagan, JorgeD
[2022-08-21 14:49] LABS: MANUAL DIFF FLAG NO
[2022-08-21 14:50] LABS: Basophils Absolute Auto 0.1 X10*3/uL (0.0-0.2); Eosinophils Absolute Auto 0.4 X10*3/uL (0.0-0.4); Eosinophils Percent Auto 6.9 % (0-4); Hematocrit 41.8 % (37.0-47.0); Hemoglobin 14.1 g/dl (12.0-16.0); Imm Gran Abs Auto 0.01 X10*3/uL (0.00-0.03); Imm Gran Pct Auto 0.2 % (0.0-0.4); Lymphocytes Absolute Auto 2.3 X10*3/uL (1.2-4.9); Lymphocytes Percent Auto 39.2 % (20-40); Mean Corpuscular HGB Conc 33.7 g/dl (31.0-35.0); Mean Corpuscular Hemoglobin 31.1 pg (27.0-33.0); Mean Corpuscular Volume 92.1 fL (80.0-98.0); Mean Platelet Volume 10.2 fL (9.4-12.3); Monocytes Absolute Auto 0.4 X10*3/uL (0.1-1.2); Monocytes Percent Auto 6.9 % (2-11); Neutrophils Absolute Auto 2.7 x10*3/uL (2.0-8.3); Neutrophils Percent Auto 45.8 % (45-73); Platelet Count 199 X10*3/uL (160-400); Red Blood Count 4.54 X10*6/uL (4.20-5.50); Red Cell Distribution Width 12.7 % (11.0-16.0)
[2022-08-21 15:14] LABS: Alanine Aminotransferase 25 U/L (0-31); Albumin Level 3.9 g/dL (3.5-5.0); Alkaline Phosphatase 73 U/L (39-117); Anion Gap 11 (12-20); Aspartate Amino Transferase 23 U/L (5-31); Bilirubin Total 0.4 mg/dL (0.0-1.0); Blood Urea Nitrogen 5 mg/dL (9-16); Calcium 8.8 mg/dL (8.4-10.2); Carbon Dioxide 27 mmol/L (22-29); Chloride 108 mmol/L (96-108); Estimated Glomerular Filt Rate > 60; Ethanol < 10 mg/dL; Glucose Random 99 mg/dL (60-115); Magnesium 2.1 mg/dL (1.6-2.6); Sodium 142 mmol/L (135-145)
[2022-08-21 20:00] VITALS: BP 105/43; PULSE 54; RESP 18; TEMP 36.1; O2SAT 99
[2022-08-21] MEDS: Zolpidem Tartrate 5 MG TABLET PO (20:05)
[2022-08-21] MEDS: Divalproex Sodium ER 500 MG TAB.ER.24H PO (20:05)
[2022-08-21] MEDS: QUEtiapine Fumarate 100 MG TABLET PO (20:05)
[2022-08-21] MEDS: traZODone HCL 100 MG TABLET PO (20:05)
[2022-08-22 03:30] VITALS: BP 106/72; PULSE 72; RESP 18; TEMP 36.2; O2SAT 97
[2022-08-22] MEDS: hydrOXYzine HCL 50 MG TABLET PO (03:52)
[2022-08-22] MEDS: QUEtiapine Fumarate 50 MG TABLET PO (03:52)
[2022-08-22 05:06] VITALS: BMI 36.8
--- NOTE | 2022-08-22 05:09 | PC.ADMIT ---
Pt is a 36 yo female admitted to at 0330 on 08/22/2022 through the [facility] at the request of [facility]'s PHP d/t expressing suicidality with a plan but stating that she does not have the urge to act on those feelings. Pt did sign a CV. Pt appears depressed, disheveled, flat affect with moderate eye contact. Pt had graduated from [facility] on 08/17/2022 and this could be a possible precipitant to admission as a stressor. Pt states that she does have access to meds even though she has VNA services for medication management . Pt has a hx here at [facility] of IPLOC w/SIB and head banging where she has often been placed on 1:1 for safety. Pt has been in the PHP here at [facility]. Pt medical issues are HTN, B12 deficiency, GERD, obstructive sleep apnea that she does not use CPAP for as well as hyperlipidemia. Pt has coconut, nut but especially peanut allergy SEVERE. Utox is negative for all, VPA level is 39.0. Pt insight and coping is poor, pt is impulsive as evidenced by past SIB, and SA/overdoses most recently overdosing in 04/2022 on ambien and seroquel, hanging/asphyxiation and is high risk for intentional self harm as she is not able to formulate a reasonable safety plan at this time. Pt has had several recent IPLOC with no good success including ECT in the past. Orders obtained and pt placed on 15 min checks for safety.
[2022-08-22 06:00] VITALS: BP 115/60; PULSE 69; RESP 18; TEMP 36.6; O2SAT 97
[2022-08-22] MEDS: Venlafaxine HCl ER 150 MG CAP.ER.24H PO (09:53)
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
--- NOTE | 2022-08-22 15:08 | PM.PSYDC ---
DS: Providers Provider Date of Service: 08/22/22 Date of admission: 08/22/22 03:15 Primary care physician: Elana Stephens MD DS: Medications Discharge Medications Home Medications: Home Medications Medication Instructions Recorded Confirmed hydroxyzine HCl 50 mg tablet 50 mg PO Q6H PRN anxiety 08/07/22 08/21/22 prazosin 1 mg capsule 4 mg PO BEDTIME 08/07/22 08/21/22 quetiapine 50 mg tablet 50 mg PO BID PRN Anxiety 08/07/22 08/21/22 quetiapine 50 mg tablet 100 mg PO BEDTIME 08/07/22 08/21/22 trazodone 100 mg tablet 100 mg PO BEDTIME 08/07/22 08/21/22 trazodone 50 mg tablet 50 mg PO NEEDED PRN Insomnia 08/07/22 08/21/22 zolpidem 5 mg tablet 5 mg PO BEDTIME PRN Insomnia 08/07/22 08/21/22 divalproex 500 mg tablet,extended 500 mg PO BEDTIME 08/08/22 08/21/22 release 24 hr venlafaxine 150 mg 150 mg PO QAM 08/21/22 08/21/22 capsule,extended release 24 hr Mental Status Exam Mental Status Exam Narrative: A&O. adequately dressed and groomed, in casual attire. good eye contact, attentive. No Tics or Tremors. No abnormal involuntary movements. Non-pressured speech, spontaneous with regular rate and rhythm, quiet volume, decreased prosody. No prolonged speech latency or dysarthria. Mood is depressed and anxious, affect is constricted, hypo-intense. denies SI/SIBI/HI/AVH (reports MRE of SI was last thursday). No known cognitive or memory impairment. Insight/ Judgment limited but adequate. Data Data Completed and Pending Completed studies during hospitalization [Text1]: 08/21/22 08/21/22 08/21/22 12:44 12:44 12:44 WBC RBC Hgb Hct MCV MCH MCHC RDW Plt Count MPV Immature Gran % (Auto) Neut % (Auto) Lymph % (Auto) [place] % (Auto) Eos % (Auto) Baso % (Auto) Lymph # (Auto) [place] # (Auto) Eos # (Auto) Baso # (Auto) Abs Immat Gran (auto) Absolute Neuts (auto) Absolute Nucleated RBC Nucleated RBC % (auto) Sodium Potassium Chloride Carbon Dioxide Anion Gap BUN Creatinine Estim Creat Clear Calc Estimated GFR Random Glucose Calcium Magnesium Total Bilirubin AST ALT Alkaline Phosphatase Total Protein Albumin Urine Color Dark Yellow Urine Appearance Cloudy Urine pH 6.0 Ur Specific [place] >= 1.030 H Urine Protein Trace Urine Glucose (UA) Negative Urine Ketones Trace Urine Blood Negative Urine Nitrite Negative Ur Leukocyte Esterase Negative Urine Opiates Screen Not Detected Urine Fentanyl Screen Not Detected Ur Barbiturates Screen Not Detected Valproic Acid Ur Phencyclidine Scrn Not Detected Ur Amphetamines Screen Not Detected U Benzodiazepines Scrn Not Detected Urine Cocaine Screen Not Detected U Marijuana (THC) Screen Not Detected Ethyl Alcohol COVID-19 (JEFF) Negative COVID-19 [employer] Com See Note 08/21/22 08/21/22 08/21/22 14:45 14:45 14:45 WBC 6.0 RBC 4.54 Hgb 14.1 Hct 41.8 MCV 92.1 MCH 31.1 MCHC 33.7 RDW 12.7 Plt Count 199 MPV 10.2 Immature Gran % (Auto) 0.2 Neut % (Auto) 45.8 Lymph % (Auto) 39.2 [place] % (Auto) 6.9 Eos % (Auto) 6.9 H Baso % (Auto) 1.0 Lymph # (Auto) 2.3 [place] # (Auto) 0.4 Eos # (Auto) 0.4 Baso # (Auto) 0.1 Abs Immat Gran (auto) 0.01 Absolute Neuts (auto) 2.7 Absolute Nucleated RBC 0.000 Nucleated RBC % (auto) 0.0 Sodium 142 Potassium 4.0 Chloride 108 Carbon Dioxide 27 Anion Gap 11 L BUN 5 L Creatinine 0.75 Estim Creat Clear Calc 108.0 Estimated GFR > 60 Random Glucose 99 Calcium 8.8 Magnesium 2.1 Total Bilirubin 0.4 AST 23 ALT 25 Alkaline Phosphatase 73 Total Protein 6.0 L Albumin 3.9 Urine Color Urine Appearance Urine pH Ur Specific [place] Urine Protein Urine Glucose (UA) Urine Ketones Urine Blood Urine Nitrite Ur Leukocyte Esterase Urine Opiates Screen Urine Fentanyl Screen Ur Barbiturates Screen Valproic Acid 39.0 L Ur Phencyclidine Scrn Ur Amphetamines Screen U Benzodiazepines Scrn Urine Cocaine Screen U Marijuana (THC) Screen Ethyl Alcohol < 10 COVID-19 (JEFF) COVID-19 Clin Com DS: Summary Hospital Course Hospital Course: pt was admitted to the hospital and transferred to M3 inpatient unit from the ED. once on the ED she reported she has chronic SI and told staff at [facility] of her SI and also that she had a plan to overdose on some extra medications she had at home. she vociferously denied any intent to act on her plan and stated she did not think it would be helpful for her to be in the hospital, feeling her two most recent admissions were not terribly helpful. she reported plan to meet with her therapist twice weekly moving forward and also explicitly identified regular meetings with her therapist as, in her mind, the most important aspect of her treatment. this plan was endorsed, and in light of her apparently being at her psychiatric baseline, she was discharged the same day back to outpatient care. Time Spent with Patient Time attestation: Total time managing care of this patient today ____ minutes. Time spent: Greater than 30 minutes Discharge Plan Discharge Anticipated Discharge Date/Time: 08/22/22 16:00 Patient Disposition: Home, Self-Care Discharge Diagnosis: Major Depressive Disorder PTSD Referrals: Elana Stephens MD [Primary Care Provider] - 1 Week Discharge Medications: Continued prazosin 1 mg capsule 4 mg PO BEDTIME hydroxyzine HCl 50 mg tablet 50 mg PO Q6H PRN (Reason: anxiety) trazodone 100 mg tablet 100 mg PO BEDTIME trazodone 50 mg tablet 50 mg PO NEEDED PRN (Reason: Insomnia) quetiapine 50 mg tablet 100 mg PO BEDTIME quetiapine 50 mg tablet 50 mg PO BID PRN (Reason: Anxiety) zolpidem 5 mg Tablet 5 mg PO BEDTIME PRN (Reason: Insomnia) divalproex 500 mg tablet extended release 24 hr 500 mg PO BEDTIME venlafaxine 150 mg capsule,extended release 24hr 150 mg PO QAM Discharge Orders: Discharge Order (Routine); Ordered 08/22/22 Ordered By: Janes Chavez Diet: Advance to usual diet Activity on Discharge: As tolerated Stand Alone Forms: Patient Portal Discharge page Care Plan Goals: remain safe and stable in the outpatient treatment setting Health Concerns: none Plan of Treatment: take medications as prescribed, attend appointments as scheduled Assessment: at baseline re risk of harm to self or others presently. intermittent SI, current plan, no intent.
--- NOTE | 2022-08-22 15:49 | PC.NURSE ---
1535 Pt ready and aware of Discharge Pt denies SI/HI/AH/VH. Pt verbalized understanding of meds and appointments. All belongings given back to patient to include her cell phone and keys. Pt was walked out to parking lot with web content writer, where her car was parked.
== END 2022-08-22 15:35 | disposition home or self-care (01) | DRG 885 ==
LOC: HO.ED 14:42 → HO.PADLT16 08-22 03:19
PROVIDERS: Emergency Medicine; Physician Assistant; Admitting Provider Psychiatry & Neurology Psychiatry; Emergency Provider Student in an Organized Health Care Education/Training Program; PCP Hospitalist; Visit Provider Psychiatry & Neurology Psychiatry
DX: F33.2 Major depressive disorder, recurrent severe without psychotic features (principal); R45.851 Suicidal ideations; F41.1 Generalized anxiety disorder; K21.9 Gastro-esophageal reflux disease without esophagitis; E78.2 Mixed hyperlipidemia; G47.33 Obstructive sleep apnea (adult) (pediatric); F43.10 Post-traumatic stress disorder, unspecified; Z20.822 Contact with and (suspected) exposure to COVID-19; Z98.84 Bariatric surgery status; Z79.899 Other long term (current) drug therapy
CPT/HCPCS: 36415; 80053; 80164; 80307; 81003; 83735; 85025; 87635; 99285; S9485

== ENCOUNTER → 2023-09-04 08:45 | Outpatient (BNV) | payer OTHER, SELFPAY | PROVIDERS: Visit Provider Psychiatry & Neurology Psychiatry | DX: F34.1 Dysthymic disorder (principal); F39 Unspecified mood [affective] disorder; F43.10 Post-traumatic stress disorder, unspecified; F45.42 Pain disorder with related psychological factors; F81.9 Developmental disorder of scholastic skills, unspecified | CPT/HCPCS: 90792; 99213; 99214 ==

== ENCOUNTER 2023-09-18 14:14 | Outpatient (REF) | payer OTHER, SELFPAY | END 2023-09-18 14:15 | disposition home or self-care (01) | LOC: HO.LAB 14:14 | PROVIDERS: PCP Hospitalist; Visit Provider Psychiatry & Neurology Psychiatry | DX: Z13.89 Encounter for screening for other disorder (principal) ==

== ENCOUNTER 2023-09-18 14:25 | Outpatient (REF) | payer OTHER, SELFPAY ==
[2023-09-18 14:56] LABS: MANUAL DIFF FLAG NO
[2023-09-18 15:05] LABS: Ammonia 32 umol/L (13-55)
[2023-09-18 15:51] LABS: Basophils Absolute Auto 0.1 X10*3/uL (0.0-0.2); Basophils Percent Auto 1.2 % (0-2); Eosinophils Absolute Auto 0.2 X10*3/uL (0.0-0.4); Eosinophils Percent Auto 3.5 % (0-4); Hematocrit 44.6 % (37.0-47.0); Hemoglobin 15.5 g/dl (12.0-16.0); Imm Gran Abs Auto 0.01 X10*3/uL (0.00-0.03); Imm Gran Pct Auto 0.2 % (0.0-0.4); Lymphocytes Absolute Auto 2.2 X10*3/uL (1.2-4.9); Lymphocytes Percent Auto 32.8 % (20-40); Mean Corpuscular HGB Conc 34.8 g/dl (31.0-35.0); Mean Corpuscular Hemoglobin 31.6 pg (27.0-33.0); Mean Platelet Volume 11.3 fL (9.4-12.3); Monocytes Absolute Auto 0.5 X10*3/uL (0.1-1.2); Monocytes Percent Auto 8.1 % (2-11); Neutrophils Absolute Auto 3.6 x10*3/uL (2.0-8.3); Neutrophils Percent Auto 54.2 % (45-73); Platelet Count 285 X10*3/uL (160-400); Red Cell Distribution Width 12.6 % (11.0-16.0); White Blood Count 6.7 X10*3/uL (4.8-10.8)
[2023-09-18 16:38] LABS: Anion Gap 11 (12-20); Blood Urea Nitrogen 8 mg/dL (9-16); C Reactive Protein < 0.10 mg/dL (< or = 0.50); Calcium 9.8 mg/dL (8.4-10.2); Carbon Dioxide 24 mmol/L (22-29); Chloride 110 mmol/L (96-108); Estimated Glomerular Filt Rate > 60; Gamma Glutamyl Transpeptidase 23 U/L (7-33); Glucose Random 70 mg/dL (60-115); Iron 116 mcg/dL (30-160); Percent Iron Saturation 46 % (15-50); Potassium 3.6 mmol/L (3.3-5.1); Sodium 141 mmol/L (135-145); Total Iron Binding Capacity 253 mcg/dL (228-428); Unsaturated Iron Binding 137 ug/dL
[2023-09-18 16:41] LABS: Free T4 (Free Thyroxine) 1.03 ng/dL (0.71-1.85); Thyroid Stimulating Hormone 0.55 uIU/mL (0.32-4.0); Vitamin D 25-OH Total 15.2 ng/mL (>30)
[2023-09-18 16:49] LABS: Vitamin B12 258 pg/mL (200-900)
[2023-09-18 16:52] LABS: Erythrocyte Sedimentation Rate 6 MM/HR (0-20)
[2023-09-19 19:03] LABS: Triiodothyronine T3 Free 2.8 pg/mL (2.3-4.2)
[2023-09-19 22:24] LABS: C Peptide 7.14 ng/mL (0.80-3.85); Prolactin 3.6 ng/mL
[2023-09-21 17:43] LABS: Thyroglobulin 25.9 ng/mL; Thyroid Peroxidase Antibodies <1 IU/mL (<9)
[2023-09-24 21:13] LABS: MTHFR Mutation Detection NEGATIVE
== END 2023-09-18 14:26 | disposition home or self-care (01) ==
LOC: HO.LAB 14:25
PROVIDERS: Visit Provider Psychiatry & Neurology Psychiatry
DX: Z13.89 Encounter for screening for other disorder (principal)
CPT/HCPCS: 36415; 80048; 81291; 82140; 82306; 82607; 82977; 83540; 84146; 84432; 84439; 84443; 84481; 84681; 85025; 85652; 86140; 86376

== ENCOUNTER 2023-09-25 12:00 | Outpatient (RCR) | payer OTHER, SELFPAY ==
[2023-09-02 12:45] VITALS: BMI 37.7
--- NOTE | 2023-09-02 12:45 | PC.ADMIT ---
Patient is a 37 year old female who was referred to [facility] by her [facility] counter caser. Patient has a history of PTSD, depression, anxiety, and cluster B traits. She has a history of many inpatient behavioral health hospitalizations d/t depression and suicide attempts. Asked patient what brought her to the hospital prior to PHP . Patient stated, I called my sister because I was panicking and making me feel weird, let her know I took an OD and she called an ambulance and took me to [facility] ER. I was there for a while 6-7 hours and they sent me to [facility] (d/t no beds available). I was in a bad place mentally I guess I attempted to suicide while I was there three different times, first time I attempted to strangle self and they found me on the ground in the bathroom, Second time I was cheeking medication for a few days and I took them all at once. I started to save more meds again and I realized it was pointless and I told someone. The third time I ingested cleaning products and was puking and very sick for the whole day and went to the ER at [facility] I was there for a week getting fluids and clear fluid diet for days and did an endoscopy-esophagus was inflamed no permanent damage and they sent me to [facility] behavioral health unit for a week. I went to my dads house from the hospital and after a few days I had to call the crisis line as I was not doing well and spent 5 days in respite . Patient reports history of being hospitalized last year from September to February 2023 of last year. She stated, same issues suicidal attempts. Had 10 rounds of ECT at the time, seemed to help at the time but not for the long run and resorted back to my old ways . See Intergrative Assessment for more information. Patient is alert and oriented x4. Calm and cooperative. Thoughts are logical and clear. She engages in conversation. She presented with depressed mood and affect. Denied SI or self harming thoughts, no HI. She was given a copy of her safety plan if needed. She is currently living with her father who she stated is supportive. She also has a VNA for medication management with a locked box. Medications reconciled with patient and patient's VNA Vera. She reports she is taking her medications as prescribed.
[2023-09-02 12:50] VITALS: BP 100/70; PULSE 76; TEMP 37.4
--- NOTE | 2023-09-03 08:41 | HO.PHP ---
Per admin staff Bailee, Pt called PHP to say she will not be in today because she has an appt. Reported to Bailee she is safe, no safety concerns and she will be here tomorrow.
--- NOTE | 2023-09-03 16:21 | HO.PHP ---
Client's case has been opened and reviewed in teams.
--- NOTE | 2023-09-04 23:45 | P.PNPSP_ITS ---
Subjective Subjective Date of Service: 09/04/23 Reason For Visit: MDD Diagnostics Vital Signs (24Hr): BMI result Body Mass Index 37.7 Assessment & Plan Certification I certify that partial hospital treatment is medically necessary due to the symptoms and problems resulting from the patient's mental illness and the failure to treat the patient at the partial hospital level of care would likely result in the patient requiring inpatient psychiatric care which could not be prevented at a less intensive level of care. Total time managing care of this patient today ____ minutes. Discharge Plan Discharge Attending provider: Darcy Denton Medications: New fluoxetine 20 mg capsule 20 mg PO DAILY Qty: 30 0RF No Action trazodone 50 mg tablet 25 mg PO BEDTIME Rx Instructions: Take 1/2 tab at bedtime. quetiapine [Seroquel] 100 mg Tablet 100 mg PO BEDTIME hydroxyzine HCl 25 mg Tablet 25 mg PO TID PRN (Reason: Anxiety) fluoxetine 20 mg Capsule 40 mg PO DAILY Rx Instructions: 2 caps daily quetiapine 25 mg Tablet 25 mg PO TID PRN (Reason: Anxiety) bupropion HCl [Wellbutrin XL] 150 mg Tablet Extended Release 24 Hr 150 mg PO QAM Print Language: [place]
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
--- NOTE | 2023-09-08 10:22 | HO.PHP ---
Angelica was not scheduled for [facility] today due to having an appointment.
--- NOTE | 2023-09-10 23:27 | HO.PHPPROGNO ---
Subjective Subjective Date of Service: 09/10/23 Reason For Visit: MDD Medication Compliance: Yes Side effects from medications: No Attending Groups: Yes Review of Systems Acute medical concerns: No Patient seen for follow-up. Reports that in the interim she had a friend of her unexpectedly from a heart attack. they were 42. She planning to attend services but has not received any news thus far. She discusses the loss, details about her friend and their life, The grief is affecting her stomach, she was nauseous all day yesterday. SHe has been unable to sleep soundly, she feels ragged and tired. Is difficult to get a break from the grief, distracted in groups for the past 2 days, just ruminating. Mood is low, endorses morbid rumination (mostly related to loss of friend), denies having any SI or thoughts of giving up on life. SHe says she would like to hold off on starting a mood stabilizer (possibly lamotrigine) as we had previously discussed. She feels with the loss of her friend she has too much on her plate and just feels like too much to start any new medications at the moment. She has a current wood pattern maker Juan that is also a good support and had started her on Prozac and WB not long ago (past 1-2 months) and would like to give the meds more time. WHich I dont think is unreasonable, but given that she has not noted any considerable imrpovement being several week out, I suggest we could increase the dose of Wellbutrin, especially given some complaints around long-standing concentration related to ADHD. She also endorses anxiety and feeling the stress she is willing to take lorazepam for a few days to get some rest and mental space from stressing about everything. SHe has taken lorazepam before, had been given it in the ED before for anxiety and found it helpful. Will just rx a short script. Will also increase WEllbutrin XL to 300 mg qam, she denies having had any side effects when starting on Wellbutrin. but is increase should exacerbate anxiety in the short term, she can see if lorazepam mitigates some of this. ROS: fatigue, tired, nausea. She has been eating at least 2 meals a day. Med compliant, denies any adverse effects. Denies any alcohol or substance use in interim. Denies SI, HI, AH, VH. Mental Status Exam Mental Status Exam Narrative: Alert, oriented, in no acute distress. Calm, cooperative, engaged. Eye contact maintained. Mood depressed, affect sad, moments of tearfulness. Speech normal. Thought process linear, coherent, ruminative. Thought content related to stressors, loss of friend, feeling overwhelmed, also executive dysfunction complaints, some transient helplessness and hopelessness, denies any SI, intention or plan. Denies any aggressive ideation. No paranoia or delusional content elicited. No evidence of psychosis. Insight and judgment fair but adequate. Diagnostics Vital Signs (24Hr): BMI result Body Mass Index 37.7 Assessment & Plan Assessment & Plan (1) Persistent depressive disorder with anxious distress, currently severe: Status: Acute Code(s): F34.1 - Dysthymic disorder (2) Other specified episodic mood disorder: Status: Acute Code(s): F39 - Unspecified mood [affective] disorder (3) PTSD (post-traumatic stress disorder): Status: Acute Code(s): F43.10 - Post-traumatic stress disorder, unspecified (4) Pain disorder associated with psychological and physical factors: Status: Acute Code(s): F45.42 - Pain disorder with related psychological factors (5) Learning disabilities: Status: Acute Code(s): F81.9 - Developmental disorder of scholastic skills, unspecified Plan increase Wellbutrin XL to 300 mg qAM start PRN lorazepam 0.5 mg (1/2 -1 tablet) up to twice daily for anxiety (in am w WB if needed to adjust) continue fluoxetine 40 mg may increase Seroquel to 100-150 mg qhs continue Seroquel 25 mg TID prn agitation/anxiety/sleep continue hydroxyzine 25 mg tid prn taper off trazodone Patient educated on: diagnosis, medication risk/benefits and medical condition Informed Consent: understands Reason for contiued partial hosp. stay Substantial Risk for: inability to function and med/psych decompensation Certification I certify that partial hospital treatment is medically necessary due to the symptoms and problems resulting from the patient's mental illness and the failure to treat the patient at the partial hospital level of care would likely result in the patient requiring inpatient psychiatric care which could not be prevented at a less intensive level of care. Total time managing care of this patient today _30___ minutes. Discharge Plan Discharge Attending provider: Darcy Denton Medications: New fluoxetine 20 mg capsule 20 mg PO DAILY Qty: 30 0RF bupropion HCl [Wellbutrin XL] 300 mg tablet extended release 24 hr 300 mg PO QAM Qty: 14 0RF lorazepam 0.5 mg tablet 0.5 mg PO BID PRN (Reason: anxiety) Qty: 30 0RF No Action trazodone 50 mg tablet 25 mg PO BEDTIME Rx Instructions: Take 1/2 tab at bedtime. quetiapine [Seroquel] 100 mg Tablet 100 mg PO BEDTIME hydroxyzine HCl 25 mg Tablet 25 mg PO TID PRN (Reason: Anxiety) fluoxetine 20 mg Capsule 40 mg PO DAILY Rx Instructions: 2 caps daily quetiapine 25 mg Tablet 25 mg PO TID PRN (Reason: Anxiety) bupropion HCl [Wellbutrin XL] 150 mg Tablet Extended Release 24 Hr 150 mg PO QAM Print Language: Armenian
--- NOTE | 2023-09-15 13:51 | HO.PHP ---
Addendum entered by Laurie Aragon 09/15/23 13:56: PHP staff member assessed what stops Angelica from acting on those negative thoughts, in which she voiced that she would not act on that because of her family. Original Note: PHP staff member followed up with Angelica after the third group since she was observed falling asleep in group. Angelica noted that she thought she slept good last night but is feeling that her anxiety is making her exhausted. PHP staff member explored what is increasing her anxiety. Angelica talked about all the new changes that will be occurring and how that is overwhelming. Angelica also shared how she will be starting trauma therapy. PHP staff member informed Angelica if she is not feeling ready for trauma therapy to discuss that with the trauma therapist and explore if they can focus on coping skills prior to beginning that work. Angelica was in agreement. Angelica shared how she has been having negative thoughts such as she is a failure and stated that the other day she picked up her prescriptions, which led to her thinking about her overdose and how she can try it again. Angelica also noted how she has been engaging in reckless behaviors such as speeding. PHP staff member informed her safety for others on the road way as well. PHP staff member encouraged her if she is not feeling safe driving to see if she can have someone drive her into the program to keep her and others protected. Angelica was in agreement. Angelica was tearful while bringing up her concerns. PHP staff member disclosed to Angelica that she is going to have the provider meet with her to follow up with her. Angelica was receptive.
--- NOTE | 2023-09-15 23:48 | P.PNPSP_ITS ---
Subjective Subjective Date of Service: 09/15/23 Reason For Visit: MDD Interim History: Dealing with a lot of different emotions Patient reports that Thursday she had received news that she secured the job that she had been applying for. She feels vexed by opposing feeling, fretting about fear of failure. Makes me feel anxious, (anticipitory) anxiety that I'm gonna fail. I'm feeling like Im a failure and I cant do this job and then see myself falling into a deep depression and getting suicidal. 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 She admits she has moments when she gets fixated on dooming thoughts, catastrophizinf, I d o panic about what if I fail . She indicates that these thoughts (the anxiety- driven thoughts) are the ones that are more likely to lead suicidal thoughts and impulses (kind of like it builds up, and I convince myself it ends bad and I cant stop it). Moreso than depressive thoughts causing SI. The anxiety drives the depression and then SI. SHe has been having intrusive thoughts of driving off the road and causing a car accident. These are not entirely new thoughts, she has experienced them before, but had not experienced them since around Feb 2023. They emerged on Thursday (after getting the news about the job). She continues to have these thougths, particularly when she is behind the wheel, almost every time she is driving in the past 4-5 days. She rates the impulse gets up to an 8 out 10 in intensity. She was agreeable to avoid driving to the program tomorrow and , and was agreeable to having us include her father in our safety planning. We had to leave a VM mentioning our concerns and to see if he is able to her ride tomorrow as well as accompany her to the pharmacy as she admits she also has could have thoughts to overdose. SHe is able to contract for safety and her father ended up returning out call to the program ro review safety plan. She also is noted to have increased the Wellbutrin to 300 mg on , perhaps it could be attributed med change. Only side effect she notes is feeling more tired thoughout the day. SHe is also taking 0.5 mg lorazepam, heart/body tension (like some chest tightness persist). We discussed med changes. She did not make the changes of Seroquel to 150 mg at night, so as expected she has not been sleeping well, been disrupted. UNclear if she has been taking 25 mg PRN seroquel. She has VNA. If not the [place] I will have her hold off lorazepam a day and start propranolol. Today I wrote the changes out for her on paper. Medication Compliance: Yes Side effects from medications: No Attending Groups: Yes Review of Systems Acute medical concerns: No Mental Status Exam Mental Status Exam Narrative: Alert, oriented, in no acute distress. Calm, cooperative, engaged. Eye contact maintained. Mood depressed, affect sad, moments of tearfulness. Speech normal. Thought process linear, coherent, ruminative. Thought content related to stressors, loss of friend, feeling overwhelmed, also executive dysfunction c omplaints, some transient SI (situational) vague impulse to drive off road, no precipitated plan, denies intention to end life. Able to cite protective factors. Denies any aggressive ideation. No paranoia or delusional content elicited. No evidence of psychosis. Insight and judgment fair but adequate. Diagnostics Vital Signs (24Hr): BMI result Body Mass Index 37.7 Assessment & Plan Assessment & Plan (1) Persistent depressive disorder with anxious distress, currently severe: Status: Acute Code(s): F34.1 - Dysthymic disorder (2) Other specified episodic mood disorder: Status: Acute Code(s): F39 - Unspecified mood [affective] disorder (3) PTSD (post-traumatic stress disorder): Status: Acute Code(s): F43.10 - Post-traumatic stress disorder, unspecified (4) Pain disorder associated with psychological and physical factors: Status: Acute Code(s): F45.42 - Pain disorder with related psychological factors (5) Learning disabilities: Status: Acute Code(s): F81.9 - Developmental disorder of scholastic skills, unspecified Plan decrease Wellbutrin XL to 150 mg qAM (?overactiviating/agitation) hold PRN lorazepam 0.5 mg tomorrow only (?causing sleepiness), then continue (1/2 -1 tablet) up to twice daily for anxiety (in am w WB if needed to adjust) start propranolol 10 mg qd-bid continue fluoxetine 40 mg may increase Seroquel to 150 mg qhs (take 100 mg at 8pm, then +/- 50 mg if needed) continue Seroquel 25 mg TID prn agitation/anxiety/sleep (?utilizing, says not - unclear - but if using may be causing tiredness, may want to try 12.5 mg TID) continue hydroxyzine 25 mg tid prn taper off trazodone (to make space for increase in Seroquel to target anxiety, mood stability. safety planning reviewed - included father Janak continue to monitor closely Patient educated on: diagnosis and medication risk/benefits Informed Consent: understands Certification I certify that partial hospital treatment is medically necessary due to the symptoms and problems resulting from the patient's mental illness and the failure to treat the patient at the partial hospital level of care would likely result in the patient requiring inpatient psychiatric care which could not be prevented at a less intensive level of care. Total time managing care of this patient today __30__ minutes. Discharge Plan Discharge Attending provider: Dracy Denton Medications: New fluoxetine 20 mg capsule 20 mg PO DAILY Qty: 30 0RF lorazepam 0.5 mg tablet 0.5 mg PO BID PRN (Reason: anxiety) Qty: 30 0RF propranolol 10 mg tablet 10 mg PO BID PRN (Reason: anxiety) Qty: 20 0RF Continued quetiapine [Seroquel] 100 mg Tablet 100 mg PO BEDTIME hydroxyzine HCl 25 mg Tablet 25 mg PO TID PRN (Reason: Anxiety) fluoxetine 20 mg Capsule 40 mg PO DAILY Rx Instructions: 2 caps daily quetiapine 25 mg Tablet 25 mg PO TID PRN (Reason: Anxiety) bupropion HCl [Wellbutrin XL] 150 mg Tablet Extended Release 24 Hr 150 mg PO QAM Discontinued trazodone 50 mg tablet 25 mg PO BEDTIME Rx Instructions: Take 1/2 tab at bedtime. Print Language: Panamanian
[2023-09-18 14:10] VITALS: BP 108/68; PULSE 80
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
--- NOTE | 2023-09-21 11:13 | HO.PHP ---
Staff met with Angelica after the first group of the morning because she disclosed having SI thoughts coming back this weekend. She was having racing thoughts during group making it hard to communicate what she was feeling currently. While having a discussion with her, staff asked her what those thoughts look like. She stated she was driving with her niece, and she was commenting on how high the bridge was, so she started thinking about taking her life that way. Staff asked her what stops her from taking her life, and she said at that moment it was her niece. She disclosed she does not currently feel this way, but she is impulsive, and that tends to be the problem. Staff asked her what she plans to do after program. She stated she was going to an appointment, she needs to picking tech her new glasses, and get some dog food. She also mentioned she could go to her niece's softball game. Staff encouraged this activity to avoid any impulsive behaviors. She said she does struggle with distraction because then she feels like she gets nothing done, leading to feeling guilty. She also admitted some of these feelings may be due to her added life stressors of starting a new job and finances. Staff encouraged her to focus on the positives such as her new glasses and her niece's softball game. Angelica appeared receptive to these suggestions. She said she currently does not have any SI, plan, or intent.
--- NOTE | 2023-09-21 14:48 | HO.PHP ---
[facility] staff member followed up with Angelica after the third group due to her reporting SI with a plan and without intent. When I went to assess the plan with Angelica she was not forthcoming with that information and voiced that she already shared with Gabriella. PHP staff member disclosed it was uncertain to what the plan was so we are seeking clarification. Angelica disclosed that she had a thought about jumping off a bridge when she was driving with her niece over the weekend. PHP staff member explored where this bridge is located. Angelica mentioned it is in [place]. PHP staff member asked Angelica if she has plans to return to this bridge or if it is just thoughts. Angelica paused for some time to process but eventually noted that they are thoughts. When asking if she feels safe she was again not being clear and responding with I guess or I think so. PHP staff member also asked Angelica if her father is still driving her to and from group therapy like discussed with the doctor. Angelica voiced that she is driving herself to program. [facility] staff member explored with Angelica if she feels safe enough to be driving and she no longer feels reckless. Angelica reported that she is still engaging in reckless behaviors. PHP staff member tried to explore ways to keep her safe but she declined leonidas for safety with her father. Angelica expressed that she will be safe and will be here tomorrow. Angelica shared that she has a chiropractor appointment at 3 PM and then will be going to her [employer] softball game at 6 PM. [facility] staff member asked the [facility] staff nurse, Samantha, if we could have Dr. Denton further assess Angelica due to her not being clear or wanting to contract for safety. Samantha suggested that the clinician has Anhannmarie contract for safety with her and her father. [facility] staff member met with Angelica again and when she went to get her out of the fourth group, PHP staff Gabriella disclosed that she left to go to the bathroom a while ago and needs someone to find where she went. PHP staff member found Angelica outside on the stairs, in which she asked if she could meet with her in her office. Angelica was emotional and tearful. Angelica identified the precipitating factor to be her having self-sabotaging thoughts around her new job. [facility] staff member engaged in reflective listening and provided her with suggestions of how to refrain those negative thoughts into positive. Angelica appeared receptive. [facility] staff member did inform Angelica that she would like to further engage in leonidas for safety with her father. Angelica disclosed that she does not want her father knowing any of the concerns around her reckless driving but the staff can call stating that we would like for him to keep an eye on Angelica. [facility] staff member got the nurse Samantha to come in to work as a team around how to proceed with supporting Angelica. Due to Anhannmarie not being clear, we informed Angelica that we would like for the doctor to further assess. Angelica was receptive.
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
--- NOTE | 2023-09-21 22:08 | HO.PHPPROGNO ---
Subjective Subjective Date of Service: 09/21/23 Reason For Visit: MDD Interim History: Patient seen for follow-up upon request of staff as patient has been making mention of vague SI and gildardo risky behaviors but not sharing nature of these thoughts or whether there is plan or intent. We met over telehealth and she says she continues to have SI as intrusive thoughts of driving off the road to kill herself. She denies thoughts of trying to harm others although admits that would be potentially dangerous to others. She says she does not feel she needs to be in the hospital as she does not wish to harm herself, but admits the intensity of these is at an 8/10 and occur frequently throughout the day. OCcurs randomly, both behind the wheel and when she is not driving. There are times she drives when it does not occurr. She was agreeable to involve her father in a discuss to develop safety plan and was agreeable with disclosing the full nature of her thoughts. This entry writer called him over the phone and was able to engage with us in coversation over telemedicine. He was receptive and Medication Compliance: Yes Side effects from medications: No Attending Groups: Yes Review of Systems Acute medical concerns: No Mental Status Exam Mental Status Exam Narrative: Alert, oriented, in no acute distress. Calm, cooperative, engaged. Eye contact maintained. Mood depressed, affect sad, moments of tearfulness. Speech normal. Thought process linear, coherent, ruminative. Thought content related to stressors, loss of friend, feeling overwhelmed, also executive dysfunction complaints, some transient SI (situational) vague impulse to drive off road, no precipitated plan, denies intention to end life. Able to cite protective factors. Denies any aggressive ideation. No paranoia or delusional content elicited. No evidence of psychosis. Insight and judgment fair but adequate. Diagnostics Vital Signs (24Hr): BMI result Body Mass Index 37.7 Assessment & Plan Assessment & Plan (1) Persistent depressive disorder with anxious distress, currently severe: Status: Acute Code(s): F34.1 - Dysthymic disorder (2) Other specified episodic mood disorder: Status: Acute Code(s): F39 - Unspecified mood [affective] disorder (3) PTSD (post-traumatic stress disorder): Status: Acute Code(s): F43.10 - Post-traumatic stress disorder, unspecified (4) Pain disorder associated with psychological and physical factors: Status: Acute Code(s): F45.42 - Pain disorder with related psychological factors (5) Learning disabilities: Status: Acute Code(s): F81.9 - Developmental disorder of scholastic skills, unspecified Plan continue Wellbutrin XL 150 mg qAM (poorly tolerated @300 mg, dose returned to 150 mg) continue fluoxetine 40 mg (reports experiencing side effects @60 mg) continue pramipexole 0.5 mg qhs as augmentation of depression take lorazepam 0.5 mg (1/2 -1 tablet) up to twice daily for anxiety (consider Haldol 1-2 mg or Geodon 20 mg PRN) continue propranolol 10 mg qd-bid, may switch to guanfacine continue Seroquel 150 mg qhs (take 100 mg at 8pm, then +/- 50 mg if needed) continue Seroquel 25 mg TID prn agitation/anxiety/sleep (?utilizing, says not - unclear - but if using may be causing tiredness, may want to try 12.5 mg TID) continue hydroxyzine 25 mg tid prn taper off trazodone (to make space for increase in Seroquel to target anxiety, mood stability. safety planning reviewed - included father Janak continue to monitor closely Patient educated on: diagnosis and medication risk/benefits Informed Consent: understands Certification I certify that partial hospital treatment is medically necessary due to the symptoms and problems resulting from the patient's mental illness and the failure to treat the patient at the partial hospital level of care would likely result in the patient requiring inpatient psychiatric care which could not be prevented at a less intensive level of care. Total time managing care of this patient today ____ minutes. Discharge Plan Discharge Attending provider: Darcy Denton Medications: New lorazepam 0.5 mg tablet 0.5 mg PO BID PRN (Reason: anxiety) Qty: 30 0RF citalopram 40 mg tablet 40 mg PO DAILY 30 Days Qty: 30 0RF haloperidol 2 mg tablet 2 mg PO TID PRN (Reason: anxiety, agitation) Qty: 30 0RF pramipexole 0.5 mg tablet 0.5 mg PO BEDTIME Qty: 30 0RF Continued quetiapine [Seroquel] 100 mg Tablet 100 mg PO BEDTIME bupropion HCl [Wellbutrin XL] 150 mg Tablet Extended Release 24 Hr 150 mg PO QAM Discontinued trazodone 50 mg tablet 25 mg PO BEDTIME Rx Instructions: Take 1/2 tab at bedtime. hydroxyzine HCl 25 mg Tablet 25 mg PO TID PRN (Reason: Anxiety) fluoxetine 20 mg Capsule 40 mg PO DAILY Rx Instructions: 2 caps daily quetiapine 25 mg Tablet 25 mg PO TID PRN (Reason: Anxiety) Print Language: Syriac Telehealth Telehealth Telehealth Platform: Other (please specify) Location of provider rendering services: other (private office) Location of patient: other ([facility]) Patient Identification confirmed using: Name, : Yes Telehealth method: voice only Patient verbally consented to treatment: Yes
--- NOTE | 2023-09-22 15:19 | HO.PHP ---
[facility] staff member followed up with Angelica after group four to explore her SI with a plan that she disclosed in group three. Angelica noted that she has the same plan as we discussed yesterday. [facility] staff member explored if she has been experiencing any other thoughts. Angelica denied any additional thoughts. [facility] staff member discussed with Angelica her plans for after program, which were to go to dinner with her friend. Angelica expressed that she will be in attendance to program tomorrow. [facility] staff member was receptive.
--- NOTE | 2023-09-22 21:49 | HO.PHPPROGNO ---
Subjective Subjective Date of Service: 09/22/23 Reason For Visit: MDD Interim History: She says she is feeling very overwhelmed about this upcoming job that starts on Thursday. She suspects that the anticipation is causing her a lot of stress. She says this is not new for her, that transitions are difficult for her. 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 When asked what she is most afraid of pertaining to the future or the new job she says she is afraid that even once she is working, this feeling of stress and being overwhelmed emotionally does not subside and that she will feel stuck feeling depressed. When asked about other alternative including starting half days or whether she can delay starting or perhaps not work, she says she needs to work but also that there is a part of her that is looking forward to working. 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 Mental Status Exam Mental Status Exam Narrative: Alert, oriented, in no acute distress. Calm, cooperative, engaged. Eye contact maintained. Mood depressed, affect sad, moments of tearfulness. Speech normal. Thought process linear, coherent, ruminative. Thought content related to stressors, loss of friend, feeling overwhelmed, also executive dysfunction complaints, some transient SI (situational) vague impulse to drive off road, no wish, urge or plan to act on these thoughts, denies intention to end life. Able to cite protective factors. Denies any aggressive ideation. No paranoia or delusional content elicited. No evidence of psychosis. Insight and judgment fair but adequate. Diagnostics Vital Signs (24Hr): BMI result Body Mass Index 37.7 Assessment & Plan Assessment & Plan (1) Persistent depressive disorder with anxious distress, currently severe: Status: Acute Code(s): F34.1 - Dysthymic disorder (2) Other specified episodic mood disorder: Status: Acute Code(s): F39 - Unspecified mood [affective] disorder (3) PTSD (post-traumatic stress disorder): Status: Acute Code(s): F43.10 - Post-traumatic stress disorder, unspecified (4) Pain disorder associated with psychological and physical factors: Status: Acute Code(s): F45.42 - Pain disorder with related psychological factors (5) Learning disabilities: Status: Acute Code(s): F81.9 - Developmental disorder of scholastic skills, unspecified Plan continue Wellbutrin XL 150 mg qAM (poorly tolerated @300 mg, dose returned to 150 mg) continue fluoxetine 40 mg (reports experiencing side effects @60 mg) continue pramipexole 0.5 mg qhs as augmentation of depression continue lorazepam 0.5 mg (1/2 -1 tablet) up to twice daily for anxiety (consider Haldol 1-2 mg or Geodon 20 mg PRN) continue propranolol 10 mg qd-bid, may switch to guanfacine continue Seroquel 150 mg qhs (take 100 mg at 8pm, then +/- 50 mg if needed) continue Seroquel 25 mg TID prn agitation/anxiety/sleep (?utilizing, says not - unclear - but if using may be causing tiredness, may want to try 12.5 mg TID) continue hydroxyzine 25 mg tid prn taper off trazodone (to make space for increase in Seroquel to target anxiety, mood stability. safety planning reviewed - included father Janak continue to monitor closely Patient educated on: diagnosis and medication risk/benefits Informed Consent: understands Reason for contiued partial hosp. stay Substantial Risk for: harm to self, rapid decompensation and med/psych decompensation Certification I certify that partial hospital treatment is medically necessary due to the symptoms and problems resulting from the patient's mental illness and the failure to treat the patient at the partial hospital level of care would likely result in the patient requiring inpatient psychiatric care which could not be prevented at a less intensive level of care. Total time managing care of this patient today __30__ minutes. Discharge Plan Discharge Attending provider: Darcy Denton Medications: New lorazepam 0.5 mg tablet 0.5 mg PO BID PRN (Reason: anxiety) Qty: 30 0RF citalopram 40 mg tablet 40 mg PO DAILY 30 Days Qty: 30 0RF haloperidol 2 mg tablet 2 mg PO TID PRN (Reason: anxiety, agitation) Qty: 30 0RF pramipexole 0.5 mg tablet 0.5 mg PO BEDTIME Qty: 30 0RF Continued quetiapine [Seroquel] 100 mg Tablet 100 mg PO BEDTIME bupropion HCl [Wellbutrin XL] 150 mg Tablet Extended Release 24 Hr 150 mg PO QAM Discontinued trazodone 50 mg tablet 25 mg PO BEDTIME Rx Instructions: Take 1/2 tab at bedtime. hydroxyzine HCl 25 mg Tablet 25 mg PO TID PRN (Reason: Anxiety) fluoxetine 20 mg Capsule 40 mg PO DAILY Rx Instructions: 2 caps daily quetiapine 25 mg Tablet 25 mg PO TID PRN (Reason: Anxiety) Print Language: German
--- NOTE | 2023-09-23 13:06 | HO.PHP ---
[facility] staff member followed up with Angelica after group three due to her reporting SI with a plan and without intent. PHP staff member explored with Angelica if her plans are the same as what she has been disclosing. Angelica said somewhat. PHP staff member asked her to further explain. Angelica noted that she has been having thoughts around her medication but noted that she provided her medication to her nurse this morning. PHP staff member explored if this was a prescription bottle she was holding on to or if she was stockpiling. Angelica disclosed she was stockpiling. PHP staff member praised Angelica for accessing a support to eliminate means to her plan. Angelica also noted that she has been having thoughts around shooting herself but she voiced that she has no means to a gun or rifle. PHP staff member explored if there are any guns or weapons in her fathers home. Angelica disclosed that there aren't. Angelica expressed that these are just thoughts and she has no intent or means to act on those thoughts. Angelica and PHP staff member talked about the gathering she is going to after program today at the [facility]. Angelica appeared to be looking forward to attending that. Angelica lastly, talked about her haldol and mentioned that it is making her feel physically calmer and relaxed but she still has racing thoughts. Angelica asked if she could increase her dose from 2 mg. PHP staff member informed her that she is not a medical doctor and unable to advise her. PHP staff member encouraged her to further explore with Dr. Denton tomorrow. Duartecasandraannmarie was receptive.
--- NOTE | 2023-09-23 14:26 | PC.NURSE ---
Angelica stated she needs a refill of Fluoxetine 20 mg tabs. I called her pharmacy and they stated the prescription for Fluoxetine 20 mg tabs # 30 was picked up on 09/07/23. They were unable to disclose who picked up the prescription. I called Angelica's HILDA Interiano from [facility] to f/u. Awaiting call back. I Spoke to [facility] staff Laurie who stated that Dr Denton had spoken to Angelica's father and created a safety plan that included Angelica's father picking up the prescription of Fluoxetine which he agreed to.
--- NOTE | 2023-09-24 14:31 | HO.PHP ---
At roughly 12:30pm [facility] staff reported Angelica did not return to group after meeting with Dr. Denton. [facility] staff called pt, pt did not answer so multiple staff checked [facility] grounds in attempt to locate pt. Pt was located in her car in the [facility] parking lot on her telephone. Pt stated she was taking her break because it was lunch time. Stated she intended to attend the 1:00 group after break. Pt was visibly safe. At 1:00 staff confirmed pt did attend group. Pt informed by [facility] staff that team feels she should go to respite today instead of after discharge tomorrow since pt reports continued SI with a plan, reports she does not intend to act on it. Pt agreed to respite today. Pt gave [facility] verbal consent to contact [facility] and begin the referral process to their [facility] for crisis stabilization and higher level of care. After [facility] staff spoke with [facility] to arrange her transition, this flex o writer operator contacted Angelica's father Ray Toure at roughly 1:30. Pt's father agreed to come to [facility] to mixing picker tender Angelica and bring her directly to [facility] at [address] in [place] to be assessed for admission. [facility] reported 1 available bed, states they will complete a crisis evaluation before admitting her and will find an alternative if she needs a different level of care. This flex o writer operator sat with Angelica until her father arrived at roughly 2:00 pm. Vp Digital [employer] updated her father on the plan and agreed to the plan. Pt left with her father, flex o writer operator observed pt get in the car. Before leaving pt told flex o writer operator she felt safe and did not feel suicidal. Reported some intrusive thoughts with anxiety. Stated she hopes to stabilize at respite so she can start her new job on Thursday. Pt also stated she will call [facility] after her assessment today at [facility] to keep us updated.
--- NOTE | 2023-09-24 15:08 | PC.NURSE ---
Spoke to [facility] this morning. She stated she puts 7 days worth of medication in a locked box and Angelica's father administers her medication. I asked if Angelica gave her any of her medications as she mentioned to staff that she was stockpiling her medications and gave them back to the VNA. She stated she gave her a pill back that she did not end up taking. Dr Denton is aware. Laisha stated her father and Angelica's daughter are going away this weekend thus Laisha was planning on having VNA services come to her home over the weekend to administer her medications. Dr Hummel met with patient today and plan is for Angelica's father to pick her up from PHP program today and have her evaluated for a Respite Stay. I called Laisha and left her a message to call me back to f/u and confirm medications that patient is taking.
--- NOTE | 2023-09-24 15:20 | HO.PHP ---
At about 10:35, this staff went out to locate Angelica after walking out of the first group of the morning and not returning. Staff saw her walk by the office window outside and went to talk with the pt. Staff decided she would meet with the program provider at 11am. Staff encouraged her to come back into the building and rejoin the group setting until it was time to meet with the provider. Angelica was tearful and declined this suggestion. She sat quietly by a tree outside listening to music. Staff sat with her to offer support and waited until it was time to make sure she was safe. At 11am, staff and Angelica returned to the building to meet and come up with an agreement on a safety plan.
--- NOTE | 2023-09-24 15:31 | HO.PHP ---
PHP staff member contacted [facility] around there crisis stabilization program to review if they have any bed placements open for an adult. PHP staff member spoke to Moon who noted that there is only one adult bed currently available. PHP staff member explored if they could hold that bed for Angelica until she is able to get transportation there. Moon disclosed that they do not hold beds unless an assessment/evaluation was completed. PHP staff member explored if she is needing a crisis evaluation. Moon voiced that is what they are looking for. Moon and PHP staff member discussed ways to get Angelica evaluated either internally through [facility] in person or having a supervisor shed workers come to our location. Moon asked if we could get her transported to the program there to see if she qualifies for that service setting. PHP staff member informed her that we would have to call her back, so we can speak to her ride. Moon was receptive. PHP staff member lastly explored if they bed is taken prior to Angelica getting there, will they do a bed search for another respite program. Moon expressed that they would. Nohemi had contacted the father, in which he informed her that he would bring Angelica to get evaluated at the [address] [facility] [address].
--- NOTE | 2023-09-24 15:34 | PC.NURSE ---
Updated [facility] Laisha that patient is currently with her father being evaluated for Respite level of care today. Also updated her on patient current medication list as there have been some medication changes.
--- NOTE | 2023-09-24 18:29 | HO.PHP ---
At roughly 5:30 pm this administrative underwriter called Angelica and her dad, Ray Toure, and spoke to both of them separately to followup on her assessment at [facility] for crisis stabiliazation. They both said that by the time they arrived at the location in [place], which was only about 20 min. after they left [facility], they did not have the bed anymore.? Pt's father reported the team did a bed search and told them that [facility] or a respite located on [facility] in [facility] may have beds tomorrow and they will call Angelica directly, no time frame provided.? Hobbing Press Operator asked Angelica to come in to [facility] tomorrow while she waits for the call, but she declined. Pt said she wants to stay home. When asked why pt stated, because she feels like she hasn?t been able to focus the past few days, said she wants to stay home and rest. Hobbing Press Operator asked pt if someone would be home with her tomorrow during the day, pt said she thinks her stepmom will be there. Pt's father reassured administrative underwriter that he and his will both be with Angelica avalos and they will call the respites in the morning about availability and he will try to encourage Angelica to come into programming tomorrow. Angelica's father states he has arranged plans for her to stay at her sisters house from tomorrow until Thursday, while he is away because he is anticipating respite may not find a bed for her. Angelica did reiterate that she does not want to go inpatient and that she is aware [facility] staff is trying to help her stay safe through the weekend. Hobbing Press Operator asked her if she felt safe at home and pt said yes. Angelica was asked which place she felt would be a safer, helpful environment for her this weekend, respite or with her sister at her sister's home, pt thought about it for a few seconds and said she thinks both places are equally safe for her.?Pt currently reported being safe now, passive SI, no plan, no intent. Pt informed that [facility] staff will be reaching out to her tomorrow morning to safety plan.?
--- NOTE | 2023-09-24 21:32 | HO.PHPPROGNO ---
Subjective Subjective Date of Service: 09/24/23 Reason For Visit: MDD Interim History: It's that job Followed up with patient who continues to endorse SI with multiple plans to crash car or cause auto accident, self strangulate or overdose on medications. She is crying and shutdown, avoiding eye contact. I had found her outside with staff who came outside to find her and support her. She was agreeable to meeting in my office. She started on 1 mg Haldol prn and also tried 2 mg last night and says that was more helpful with taking the edge off her anxiety. She is still having a lot of anxiety in anticipation of starting work on Thursday. She says as much as she is anxious about the job she also says I need this job. I'm tired of needing to rely on others I want to have a job so I can be independent . Today she only took 1 mg as she is now out of Haldol. She says she really does not want to her herself but is having a lot of intrusive thoughts about crashing her car and self strangulation, not so much about overdosing not really those thoughts . She has been able to avoid acting on any, she says they are at the same frequency and intensity as they have been at all week. Her father and his partner will be traveling to the [facility] for the weekend which will leave Angelica home alone. She is disappointed about this but also says she wouldn't want to go with them. She still feels depressed and suicidal, she remained tearful and had difficulty around safety planning. She contract for safety tonight because her father is still home but was more gamey and noncommittal about the weekend. We agree on plan for her to start at respite over the weekend and include her father in on the plan. Dad agrees with plan and says he does not want to see his daughter go to the hospital because she always does worse there. She really hurts herself, she does much better at home . Nonetheless he understands that respite is the only reasonable option while he and partner are away while patient is feeling unsafe. Patient agreed to return to group, but was later was found sitting in the car in the parking lot, after she had not returned to groups after all. She states she was out there taking a break . Her father had returned my call, initially leaving a message insisting that Angelica not be hospitalized, and ultimately agreed to come at the end of the program to poultry picking machine tender Angelica and bring her over to [facility] today to see about getting a respite bed. He also said he would poultry picking machine tender her 3 scripts which were sent over to the pharmacy. Medication Compliance: Yes Side effects from medications: No Attending Groups: Intermittent Review of Systems Acute medical concerns: No Mental Status Exam Mental Status Exam Narrative: Alert, oriented, in no acute distress. Calm, cooperative, engaged. Eye contact maintained. Mood depressed, affect sad, moments of tearfulness. Speech normal. Thought process linear, coherent, ruminative. Thought content related to stressors, loss of friend, feeling overwhelmed, also executive dysfunction complaints, some transient SI (situational) vague impulse to drive off road, no precipitated plan, denies intention to end life. Able to cite protective factors. Denies any aggressive ideation. No paranoia or delusional content elicited. No evidence of psychosis. Insight and judgment fair but adequate. Patient Appearance: Disheveled Patient Orientation: Person, Place, Time and Situation Level of Consciousness: Awake and Appropriate Patient Behavior: Cooperative, Anxious, Distractible, Isolative, Uncooperative and Poor Eye Contact Mood Description: Depressed and Anxious Affect Description: Anxious, Blunted, Sad and Apprehensive Patient Cognition Impaired: No Ability to Follow Directions: Fair Speech Pattern: Soft-Spoken and Long Pauses Memory Description: Intact Hallucinations: None Delusions: Not Present Thought Process: Linear and Evasive Thought Content: positive for Circumstantial, positive for Linear, positive for Preoccupation and positive for Suicidal Ideation Depressive Symptoms: Increased Anxiety, Diff. Making Decisions, Crying Spells, Feelings of Worthlessness, Feelings of Guilt, Unhappiness and Difficulty Concentrating Abnormal Motor Activity Signs and Symptoms: Agitation Judgement: Fair Diagnostics Vital Signs (24Hr): BMI result Body Mass Index 37.7 Assessment & Plan Assessment & Plan (1) Persistent depressive disorder with anxious distress, currently severe: Status: Acute Code(s): F34.1 - Dysthymic disorder (2) Other specified episodic mood disorder: Status: Acute Code(s): F39 - Unspecified mood [affective] disorder (3) PTSD (post-traumatic stress disorder): Status: Acute Code(s): F43.10 - Post-traumatic stress disorder, unspecified (4) Pain disorder associated with psychological and physical factors: Status: Acute Code(s): F45.42 - Pain disorder with related psychological factors (5) Learning disabilities: Status: Acute Code(s): F81.9 - Developmental disorder of scholastic skills, unspecified Plan increase Haldol 2 mg to BID-TID PRN agitation continue Wellbutrin XL 150 mg qAM (poorly tolerated @300 mg, dose returned to 150 mg) held fluoxetine (did not poultry picking machine tender 20 mg caps will discontinue (reports experiencing side effects @60 mg) increase citalopram to 40 mg qhs increase pramipexole to 0.5 mg BID as augmentation of depression (will bring additional 0.5 mg tomorrow to program for lunchtime) continue lorazepam 0.5 mg (1/2 -1 tablet) up to twice daily for anxiety continue propranolol 10 mg qd-bid, may switch to guanfacine continue Seroquel 100 mg qhs discontinue Seroquel 25 mg TID prn agitation/anxiety/sleep (not helpful for agitation, causes drowsiness) continue hydroxyzine 25 mg tid prn discontinued: proranolol (AE: ineffective),fluoxetine (AE: limit effect did not tolerate @60 mg), trazodone safety planning reviewed - included father Janak continue to monitor closely Patient educated on: diagnosis and medication risk/benefits Informed Consent: understands Certification I certify that partial hospital treatment is medically necessary due to the symptoms and problems resulting from the patient's mental illness and the failure to treat the patient at the partial hospital level of care would likely result in the patient requiring inpatient psychiatric care which could not be prevented at a less intensive level of care. Total time managing care of this patient today _60___ minutes. Discharge Plan Discharge Attending provider: Darcy Denton Medications: New lorazepam 0.5 mg tablet 0.5 mg PO BID PRN (Reason: anxiety) Qty: 30 0RF citalopram 40 mg tablet 40 mg PO DAILY 30 Days Qty: 30 0RF haloperidol 2 mg tablet 2 mg PO TID PRN (Reason: anxiety, agitation) Qty: 30 0RF pramipexole 0.5 mg tablet 0.5 mg PO BEDTIME Qty: 30 0RF Continued quetiapine [Seroquel] 100 mg Tablet 100 mg PO BEDTIME bupropion HCl [Wellbutrin XL] 150 mg Tablet Extended Release 24 Hr 150 mg PO QAM Discontinued trazodone 50 mg tablet 25 mg PO BEDTIME Rx Instructions: Take 1/2 tab at bedtime. hydroxyzine HCl 25 mg Tablet 25 mg PO TID PRN (Reason: Anxiety) fluoxetine 20 mg Capsule 40 mg PO DAILY Rx Instructions: 2 caps daily quetiapine 25 mg Tablet 25 mg PO TID PRN (Reason: Anxiety) Print Language: Kosovan
--- NOTE | 2023-09-25 23:42 | P.PNPSP_ITS ---
Subjective Subjective Date of Service: 09/25/23 Reason For Visit: MDD Interim History: Patient seen for follow-up, anticipating discharge at the end of program today.? She is still depressed, having SI but says it is just there, the same , denies any intention of acting on these thoughts and suspects she just has to tolerate this through the weekend due to anticipatory stress of starting work until she starts the new job on Thursday. She went with her father yesterday to respite but they no longer had any beds so they went home. She and her father made a plan for her to stay with her sister for the weekend which she is agreeable to. She gets along with her sister and her nieces who are 19 yo and 9 yo. SHe also shares plans she has this weekend including volunteering [facility] for [employer] for [facility] on Thursday and Thursday. She has been taking Haldol 2 mg twice a day and says she does feel calmer today. She tried taking 5 mg yesterday and it gave her a stomach ache so she plans to stay at 2-3 mg PRN and is hoping once work starts and some of the anticipate dissipates she will be closer to baseline and not needing PRN medication. She is hoping to keep herself busy this weekend and distract herself from the overwhelming emotions and stress she experiences when focusing on her anxiety (starting new job). 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 She does also present as calmer and is not tearful or labile. She remained in groups today. She responded positively to support from staff. She denies thoughts of harming self or others at this time. Denies any aggressive ideation or HI. Denies any paranoia or AH or VH. Sleep, appetite, energy stable. Medication Compliance: Yes Side effects from medications: Yes (as noted) Attending Groups: Yes Review of Systems Acute medical concerns: No Mental Status Exam Mental Status Exam Narrative: Alert, oriented, in no acute distress. Calm, cooperative, engaged. Eye contact maintained. Mood depressed, affect sad, moments of tearfulness. Speech normal. Thought process linear, coherent, ruminative. Thought content related to stressors, loss of friend, feeling overwhelmed, also executive dysfunction complaints, some transient SI (situational) intrusive thoughts of driving off road or self-strangulation, no precipitated plan, denies intention to end life. Able to cite protective factors. Denies any aggressive ideation. Denies urge or intention to harm self or others. No paranoia or delusional content elicited. No evidence of psychosis. Insight and judgment fair but adequate. Diagnostics Vital Signs (24Hr): BMI result Body Mass Index 37.7 Assessment & Plan Assessment & Plan (1) Persistent depressive disorder with anxious distress, currently severe: Status: Acute Code(s): F34.1 - Dysthymic disorder (2) Other specified episodic mood disorder: Status: Acute Code(s): F39 - Unspecified mood [affective] disorder (3) PTSD (post-traumatic stress disorder): Status: Acute Code(s): F43.10 - Post-traumatic stress disorder, unspecified (4) Pain disorder associated with psychological and physical factors: Status: Acute Code(s): F45.42 - Pain disorder with related psychological factors (5) Learning disabilities: Status: Acute Code(s): F81.9 - Developmental disorder of scholastic skills, unspecified Plan Discharge from [facility] continue Wellbutrin XL 150 mg qAM (poorly tolerated @300 mg, dose returned to 150 mg) continue citalopram 40 mg qhs continue pramipexole 0.5 mg QHS continue lorazepam 0.5 mg twice daily PRN anxiety continue Haldol 2 mg to BID PRN severe anxiety/agitation continue Seroquel 100 mg qhs discont fluoxetine, propranolol (ineffective) Refills sent to pharmacy Will defer further medication management to outpatient provider *Safety plan reviewed *Discharge Diagnoses reviewed with patient, as well as treatment course, discharge plan (including medication regime, medication management, potential side effects) as well as treatment rationale were also revisited *If patient wishes, they are welcome to have their outpatient provider reach out to me for any further questions or clarification as pertains to this patient?s clinical care/treatment during their stay at [facility] (contact information provided to patient)? Patient educated on: diagnosis and medication risk/benefits Informed Consent: understands Reason for contiued partial hosp. stay Substantial Risk for: stable for discharge and rapid decompensation Certification I certify that partial hospital treatment is medically necessary due to the symptoms and problems resulting from the patient's mental illness and the failure to treat the patient at the partial hospital level of care would likely result in the patient requiring inpatient psychiatric care which could not be prevented at a less intensive level of care. Total time managing care of this patient today __40__ minutes. Discharge Plan Discharge Attending provider: Darcy Denton Medications: New lorazepam 0.5 mg tablet 0.5 mg PO BID PRN (Reason: anxiety) Qty: 30 0RF citalopram 40 mg tablet 40 mg PO DAILY 30 Days Qty: 30 0RF haloperidol 2 mg tablet 2 mg PO TID PRN (Reason: anxiety, agitation) Qty: 30 0RF pramipexole 0.5 mg tablet 0.5 mg PO BEDTIME Qty: 30 0RF Continued quetiapine [Seroquel] 100 mg Tablet 100 mg PO BEDTIME bupropion HCl [Wellbutrin XL] 150 mg Tablet Extended Release 24 Hr 150 mg PO QAM Discontinued trazodone 50 mg tablet 25 mg PO BEDTIME Rx Instructions: Take 1/2 tab at bedtime. hydroxyzine HCl 25 mg Tablet 25 mg PO TID PRN (Reason: Anxiety) fluoxetine 20 mg Capsule 40 mg PO DAILY Rx Instructions: 2 caps daily quetiapine 25 mg Tablet 25 mg PO TID PRN (Reason: Anxiety) Print Language: Venezuelan
== END 2023-09-25 23:59 | disposition home or self-care (01) ==
LOC: HO.PHPA 12:00
PROVIDERS: Visit Provider Psychiatry & Neurology Psychiatry
DX: F34.1 Dysthymic disorder (principal); F39 Unspecified mood [affective] disorder; F43.10 Post-traumatic stress disorder, unspecified; F45.42 Pain disorder with related psychological factors; F81.9 Developmental disorder of scholastic skills, unspecified; Z79.899 Other long term (current) drug therapy
CPT/HCPCS: 90791; 90853

== ENCOUNTER 2024-07-23 14:05 | Emergency (ER) | payer OTHER, SELFPAY ==
[2024-07-23 14:13] VITALS: BP 145/94; PULSE 68; RESP 16; TEMP 36.6; O2SAT 98; BMI 37.3
--- NOTE | 2024-07-23 14:13 | ED.PSYCH ---
HPI - Psych General Chief Complaint: Psychiatric Symptoms Stated Complaint: crisis sent in section 12 Time Seen by Provider: 07/23/24 14:27 Source: patient Mode of arrival: ambulatory Limitations: no limitations History of Present Illness ED Provider: Gala Hernadez NP HPI Narrative: Patient is a 38-year-old female who presents emergency department sectioning was Police, on a section 12. Patient is Endorsing suicidal ideations does not provide a specific plan to myself at this time. She was speaking with a [facility] staff member this morning who felt that the patient should come to the ED. She admits to an attempted overdose approximately 3 weeks ago on Haldol and Ativan of which she did not seek evaluation afterwards. She is having increasing feelings of hopelessness, has a history of self-harm behaviors. States that she has been following with her therapist and psychiatrist through [facility] in [place], states she has been compliant with her medications. Reports she was last hospitalized inpatient at [facility] in May of 2024 which she felt did more harm than good. Denies recreational drug or alcohol usage. Denies homicidal ideations. Denies hallucinations. Related Data Home Medications ?Medication ?Instructions ?Recorded ?Confirmed quetiapine 100 mg tablet (Seroquel) 100 mg PO BEDTIME 09/02/23 07/23/24 citalopram 10 mg tablet 15 mg PO DAILY 07/23/24 07/23/24 dicyclomine 20 mg tablet 20 mg PO TID 07/23/24 07/23/24 haloperidol 2 mg tablet 2 mg PO BID PRN anxiety attack 07/23/24 07/23/24 lamotrigine 25 mg tablet 75 mg PO BEDTIME 07/23/24 07/23/24 Previous Rx's ?Medication ?Instructions ?Recorded lorazepam 0.5 mg tablet 0.5 mg PO BID PRN anxiety #30 tabs 09/10/23 pramipexole 0.5 mg tablet 0.5 mg PO BEDTIME as directed #30 09/24/23 tabs amoxicillin 500 mg tablet 500 mg PO TID 7 days #21 tabs 07/24/24 Allergies Allergy/AdvReac Type Severity Reaction Status Date / Time coconut Allergy Severe Anaphylaxis Verified 07/23/24 14:15 nut - unspecified [NUTS] Allergy Severe HIVES, Verified 07/23/24 14:15 DIFF BREATHING, THROAT SWELLS peanut Allergy Severe Anaphylaxis Verified 07/23/24 14:15 Review of Systems Review of Systems: Yes all other systems are reviewed and are negative [facility] Past Medical History Attestation statement: The following information was validated with the patient. Source: old records reviewed Medical History Atypical chest pain Vitamin B 12 deficiency Mixed hyperlipidemia Routine history and physical examination of adult HTN (hypertension) MARIA TERESA (obstructive sleep apnea) GERD (gastroesophageal reflux disease) Post traumatic stress disorder (PTSD) TREY (generalized anxiety disorder) MDD (major depressive disorder), recurrent severe, without psychosis Surgical History Hx of cholecystectomy H/O gastric bypass Family History Family History Mother Heart disease Social History Social History Household Members: Family Household Members Other:: 18 year old daughter Housing: Unknown / Unable to assess Do you presently have visiting nurse or other home services: Yes (for medication management) Alcohol intake: current Alcohol intake frequency: does not drink Comment: Discharge date was set for September 17, extended until September 24 Patient Tobacco Use Status: Never used Tobacco Smoked in Last 30 Days: No Advance Directives: No Advance Directives Information Provided: No Do you have a plan to hurt others: No Plan service: No Sexual orientation: Straight/Heterosexual Physical Exam Vital Signs: Vital Signs: Last Vital Signs Temp 97.9 F 07/24/24 05:59 Pulse 60 07/24/24 05:59 Resp 15 07/24/24 05:59 BP 111/59 L 07/24/24 05:59 Pulse Ox 98 07/24/24 05:59 O2 Del Method Room Air 07/24/24 05:59 BMI result Body Mass Index 37.3 Appearance: Alert.?Oriented to person, place and time. No acute distress.?Normal affect. Eyes: Pupils equal, round and reactive to light.? ENT: Pharynx normal.?? Neck: Normal inspection.? Neck supple.?? CVS: Heart sounds normal. Normal heart rate and rhythm.? Pulses normal.?? Respiratory: No respiratory distress.? Lung sounds clear to auscultation bilaterally?? Abdomen: Soft and non-tender. Normoactive bowel sounds. Skin: Skin warm and dry.? Normal skin color.? Extremities: No lower extremity edema.? Neuro: Moves all extremities spontaneously. Sensation intact bilaterally. CN II-XII intact. No focal neuro deficits. Ambulates with normal steady gait. Course Course Course Narrative: This is a rapid medical exam performed by Felipe Arzate NP: Additional HPI, ROS, PE not included below will be deferred to primary provider. 07/23/24 14:14 Patient is a 38-year-old female with history of PTSD, MDD, anxiety presenting on a section 12 with police patrol officer reporting suicidal ideation, recent overdose attempts, hopelessness, history of self harm. Spoke with a [facility] staff member this am who felt patient needed to come to the ED. Plan: medical clearance, CARE eval Reevaluation(s) Reevaluation #1: Time: 07:55 Date: 07/24/24 Provider: Tom Braswell MD Patient in physician observation for psychiatric evaluation.? VS stable.? Patient is in bed search status after care team evaluation. This morning the patient is complaining of some left ear pain that has been bothering her for about a day and a half. On exam the patient has a right normal tympanic membrane. The left tympanic membrane is somewhat injected, especially the top half of the tympanic membrane. There is no bulging or deformation of the architecture of the tympanic membrane however. She may have an early otitis media on the left side. We will start a course of amoxicillin. This is a relatively minor issue and I do not think it would affect psychiatric placement. Otherwise the patient looks well and is medically stable. Will continue to monitor. Time: 07:57 Reevaluation #2: Time: 09:19 Date: 07/24/24 Provider: KAYDEN Patterson Per care team, patient has been accepted to [facility] with plan for transfer at 12pm?with accepting physician Dr. Noyola. No acute events reported overnight. No current complaints. VS stable. Dr. Braswell treating patient for left otitis media w/ amoxicillin.? will provide script for this on discharge. will continue to monitor in the meantime. Time: 10:11 Date: 07/24/24 Provider: KAYDEN Patterson Physician observation ended at 1011. Patient was being transferred to [facility] per care team. Patient is agreeable with this transfer. written script for amoxicillin provided for treatment of left otitis media. Medications Administered Generic Name Dose Route Start Last Admin Trade Name Freq PRN Reason Stop Dose Admin Amoxicillin 500 mg 07/24/24 09:00 07/24/24 08:03 Amoxicillin 500 Mg Capsule PO 07/30/24 23:59 500 mg TID JEFFREY Administration Dicyclomine HCl 20 mg 07/23/24 21:00 07/24/24 08:03 Dicyclomine Hcl 10 Mg Capsule PO 20 mg TID JEFFREY Administration Escitalopram Oxalate 7.5 mg 07/24/24 09:00 07/24/24 08:03 Escitalopram Oxalate 5 Mg Tablet PO 7.5 mg DAILY JEFFREY Administration Haloperidol 2 mg 07/23/24 18:23 07/23/24 19:17 Haloperidol 1 Mg Tablet PO 2 mg BID PRN Administration anxiety, agitation Lamotrigine 75 mg 07/23/24 21:00 07/23/24 21:27 Lamotrigine 25 Mg Tablet PO 75 mg BEDTIME JEFFREY Administration Pramipexole Dihydrochloride 0.5 mg 07/23/24 21:00 07/23/24 21:27 Pramipexole Di-Hcl 0.25 Mg Tablet PO 0.5 mg BEDTIME JEFFREY Administration Quetiapine Fumarate 100 mg 07/23/24 21:00 07/23/24 21:27 Quetiapine Fumarate 100 Mg Tablet PO 100 mg BEDTIME JEFFREY Administration Discontinued Medications Generic Name Dose Route Start Last Admin Trade Name Jon PRN Reason Stop Dose Admin Acetaminophen 975 mg 07/24/24 07:52 07/24/24 08:03 Acetaminophen 325 Mg Tablet PO 07/24/24 07:53 975 mg ONCE ONE Administration Ibuprofen 400 mg 07/24/24 07:52 07/24/24 08:03 Ibuprofen 400 Mg Tablet PO 07/24/24 07:53 400 mg ONCE ONE Administration Medical Decision Making Medical Decision Making MDM Narrative: Patient is a 38-year-old female past medical history of hyperlipidemia, hypertension, MARIA TERESA, vitamin B12 deficiency, GERD, PTSD, GERD, MDD who presents emergency department on a section 12 endorsing suicidal ideations not provide him myself any specific plan. She offers no physical complaints at this time and her physical examination is benign. She states that she has been medication compliant following with her therapist and psychiatrist regularly. Despite a recent inpatient hospitalization May 2024, reports her mood has not been much improved. Plan to obtain serum labs for medical clearance, will refer to care team for safe disposition planning Differential Diagnosis Differential Diagnoses: The differential diagnosis associated with the presentation includes (See narrative above and below for further detail) Admission/Observation Consideration of admission/observation: Escalation of care including admission/observation considered Patient is being observed in the Emergency Department for depression and suicidal ideations Observation time was started at 14:37 on 07/23/2024.?The patient is currently stable and non-toxic appearing. Observation is being initiated in the Emergency Department to allow time to help differentiate if the patient's depression and anxiety is due to Substance Induced Mood Disorder and Anxiety versus Major Depressive Disorder, Bipolar [place], Bipolar Depression, and Schizophrenia. The patient will receive frequent psychiatric assessments from the provider as well as from nursing staff. The patient will also be monitored for the need of PRN agitation medications such as Haldol, Ativan, and Benadryl. Consult Healthcare Provider Management of the patient was discussed with: Behavioral Health Provider (CARE team) Lab Data MDM Lab Attestation statement: I reviewed the patient's lab results. CBC is without leukocytosis anemia or thrombocytopenia. No electrolyte derangement. No CHIO. Negative toxicology. 07/23/24 15:05 07/23/24 15:05 Labs: Lab Results 07/23/24 07/23/24 Range/Units 15:05 15:31 WBC 6.7 (4.8-10.8) X10*3/uL RBC 4.67 (4.20-5.50) X10*6/uL Hgb 14.9 (12.0-16.0) g/dl Hct 42.8 (37.0-47.0) % MCV 91.6 (80.0-98.0) fL MCH 31.9 (27.0-33.0) pg MCHC 34.8 (31.0-35.0) g/dl RDW 12.9 (11.0-16.0) % Plt Count 254 (160-400) X10*3/uL MPV 10.1 (9.4-12.3) fL Immature Gran % (Auto) 0.2 (0.0-0.4) % Neut % (Auto) 52.1 (45-73) % Lymph % (Auto) 35.5 (20-40) % [place] % (Auto) 7.2 (2-11) % Eos % (Auto) 4.2 H (0-4) % Baso % (Auto) 0.8 (0-2) % Lymph # (Auto) 2.4 (1.2-4.9) X10*3/uL [place] # (Auto) 0.5 (0.1-1.2) X10*3/uL Eos # (Auto) 0.3 (0.0-0.4) X10*3/uL Baso # (Auto) 0.1 (0.0-0.2) X10*3/uL Abs Immat Gran (auto) 0.01 (0.00-0.03) X10*3/uL Absolute Neuts (auto) 3.5 (2.0-8.3) x10*3/uL Absolute Nucleated RBC 0.000 (0.0-0.012) X10*3/uL Nucleated RBC % (auto) 0.0 (0.0-0.2) /100WBC Sodium 140 (135-145) mmol/L Potassium 4.3 (3.3-5.1) mmol/L Chloride 110 H (96-108) mmol/L Carbon Dioxide 22 (22-29) mmol/L Anion Gap 12 (12-20) BUN 10 (9-16) mg/dL Creatinine 0.69 (0.5-1.4) mg/dL Estim Creat Clear Calc 114.8 Estimated GFR > 60 Random Glucose 86 (60-115) mg/dL Calcium 9.2 D (8.4-10.2) mg/dL Total Bilirubin 0.4 (0.0-1.0) mg/dL AST 41 H (5-31) U/L ALT 43 H (0-31) U/L Alkaline Phosphatase 92 (39-117) U/L Total Protein 6.7 (6.5-8.0) g/dL Albumin 4.1 (3.5-5.0) g/dL Beta HCG, Quant < 2 mIU/mL Urine Color Yellow Urine Appearance Cloudy Urine pH 6.0 (5.0-9.0) Ur Specific [place] 1.010 (1.005-1.025) Urine Protein Negative (Neg-Trace) mg/dL Urine Glucose (UA) Negative (Negative) mg/dL Urine Ketones Negative (Negative) mg/dL Urine Blood Negative (Negative) Urine Nitrite Negative (Negative) Ur Leukocyte Esterase Negative (Negative) Salicylates < 5.0 L (15-30) mg/dL Urine Opiates Screen Not Detected (Not Detect) Ur Buprenorphine Scrn Not Detected (Not Detect) ng/mL Ur Oxycodone Screen Not Detected (Not Detect) ng/mL Urine Methadone Screen Not Detected (Not Detect) ng/mL Urine Fentanyl Screen Not Detected (Not Detect) Acetaminophen < 3 (<30) mcg/mL Ur Barbiturates Screen Not Detected (Not Detect) Ur Phencyclidine Scrn Not Detected (Not Detect) Ur Amphetamines Screen Not Detected (Not Detect) U Benzodiazepines Scrn Not Detected (Not Detect) Urine Cocaine Screen Not Detected (Not Detect) U Marijuana (THC) Screen Not Detected (Not Detect) Ethyl Alcohol < 10 mg/dL Influenza Type A (PCR) NEGATIVE (Negative) Influenza Type B (PCR) NEGATIVE (Negative) RSV RNA Qual (PCR) NEGATIVE (Negative) SARS-CoV-2 RNA (RT-PCR) NEGATIVE (Negative) Independent Historian Clinical information obtained from an independent historian. History obtained from or confirmed by: Other (See HPI) External Record Review External record reviewed: Outpatient record Chronic Conditions Patient?s care impacted by: Other (See narrative above) Discharge Plan Discharge Clinical Impression: MDD (major depressive disorder), recurrent severe, without psychosis, PTSD (post-traumatic stress disorder), Acute left otitis media Patient Disposition: Xfer Psychiatric Hosp Transfer Details: [facility] - accepting physician Dr. Inman Instructions: Depression (ED), Ear Infection (ED) Additional Instructions: You have an infection of your left inner ear. Take amoxicillin as prescribed. Return with new or worsening symptoms. In the case of an emergency call 911. Prescriptions: New amoxicillin 500 mg tablet 500 mg PO TID 7 Days Qty: 21 0RF No Action lamotrigine 25 mg tablet 75 mg PO BEDTIME dicyclomine 20 mg tablet 20 mg PO TID citalopram 10 mg tablet 15 mg PO DAILY haloperidol 2 mg tablet 2 mg PO BID PRN (Reason: anxiety attack) quetiapine [Seroquel] 100 mg Tablet 100 mg PO BEDTIME lorazepam 0.5 mg tablet 0.5 mg PO BID PRN (Reason: anxiety) Qty: 30 0RF pramipexole 0.5 mg tablet 0.5 mg PO BEDTIME Qty: 30 0RF Interventions: [place]-Suicide Risk Severity Scale Last Done: 07/23/24 14:17 Print Language: Norwegian
--- NOTE | 2024-07-23 14:27 | PC.NURSE ---
[facility] pd states that the pt reported OD and suicide attempt 3 weeks ago, slept for 36 hours and never sought help. also recent OD and inpatient stay at [facility] in May, also reports too many to count SI attempts in her lifetime, PD states the pt normally goes to [facility]
--- OUTSIDE RECORDS SUMMARY | 2024-07-23 14:29 | XMS_ITS | Patient Health Record ---
Author Organization [facility] Address [address] [place] [address] Care Team Providers Care Sweatband Drummer Name Role Phone RACHNA HARDEN Primary Care Provider [phone] Angelo Azar Unavailable [phone] Aries Mackay Unavailable [phone] Allergies Allergen (clinical drug ingredient) Drug/Non Drug Allergy documented on EMR Reaction Allergy Type Onset Date Status peanut allergenic extract Peanut (Diagnostic) Unknown Drug Allergy Active Results Component Value Reference Range Notes C-Reactive Protein, Quant-00 6627 Reviewed date:09/10/2023 12:24:45 PM Interpretation: Performing Lab:[facility] [place], [address] [facility], Phone - [phone], Director - Zelda Notes/Report: C-Reactive Protein, Quant <1 0-10 mg/L Sedimentation Rate-Westergre n-[id number] Reviewed date:09/10/2023 12:24:38 PM Interpretation: Performing Lab:[facility], [address] [facility] [facility], [place], Phone - [phone], Director - Zelda Notes/Report: Sedimentation Rate-Westergren 11 0-32 mm/hr CBC With Differential/Platel et-[id number] Reviewed date:09/10/2023 12:21:51 PM Interpretation: Performing Lab:[facility], [address] [facility], [place], Phone - [phone], Director - Bogdandrclemente Notes/Report: WBC 5.7 3.4-10.8 x10E3/uL RBC 4.86 3.77-5.28 x10E6/uL Hemoglobin 14.6 11.1-15.9 g/dL Hematocrit 47.5 34.0-46.6 % MCV 98 79-97 fL MCH 30.0 26.6-33.0 pg MCHC 30.7 31.5-35.7 g/dL RDW 13.0 11.7-15.4 % Platelets 273 150-450 x10E3/uL Neutrophils 48 Not Estab. % Lymphs 41 Not Estab. % Monocytes 7 Not Estab. % Eos 3 Not Estab. % Basos 1 Not Estab. % Neutrophils (Absolute) 2.7 1.4-7.0 x10E3/uL Lymphs (Absolute) 2.3 0.7-3.1 x10E3/uL Monocytes(Absolute) 0.4 0.1-0.9 x10E3/uL Eos (Absolute) 0.2 0.0-0.4 x10E3/uL Baso (Absolute) 0.1 0.0-0.2 x10E3/uL Immature Granulocytes 0 Not Estab. % Immature Grans (Abs) 0.0 0.0-0.1 x10E3/uL TSH-[id number] Reviewed date:09/10/2023 12:24:21 PM Interpretation: Performing Lab:[facility], [address] [place] [address], Phone - [phone], Director - Stacyy Notes/Report: TSH 0.745 0.450-4.500 uIU/mL Vitamin [id number] Reviewed date:09/10/2023 12:24:28 PM Interpretation: Performing Lab:[facility] [place], [address] [place] [address], Phone - [phone], Director - MDJodry Notes/Report: Vitamin B12 002 826-1906 pg/mL Creatine Kinase,Total-[id number] Reviewed date:09/10/2023 01:54:24 PM Interpretation: Performing Lab:[facility], [address] [place] [address], Phone - [phone], Director - MDJodry Notes/Report: Creatine Kinase,Total 79 32-182 U/L Calprotectin, Fecal-[id number] Reviewed date:04/09/2024 12:38:07 PM Interpretation: Performing Lab:[facility], [address] [place] [address], Phone - [phone], Director - Luana Notes/Report: Clinical Information:SRC:ST Calprotectin, Fecal 61 0-120 ug/g Concentration Interpretation Follow-Up < 5 - 50 ug/g Normal None >50 -120 ug/g Borderline Re-evaluate in 4-6 weeks >120 ug/g Abnormal Repeat as clinically indicated Lactoferrin, Fecal, Quant.-1 76161 Reviewed date:04/09/2024 12:42:58 PM Interpretation: Performing Lab:[facility], [facility], Phone - [phone], Director - Luana Notes/Report: Clinical Information:SRC:ST Lactoferrin, Fecal, Quant. 8.41 0.00-7.24 ug/m L(g) . Baseline (normal) 0.00 - 7.24 Elevated >7.24 . An elevated result is indicative of the presence of fecal lactoferrin, a marker of intestinal inflammation. A normal result does not exclude the presence of intestinal inflammation. The test can be used as an in vitro diagnostic aid to distinguish patients with active inflammatory bowel disease (IBD) from those with non-inflammatory irritable bowel syndrome (IBS). White Blood Cells (WBC), Sto ol-[id number] Reviewed date:04/09/2024 12:36:20 PM Interpretation: Performing Lab:[facility], [address] [facility], Phone - [phone], Director - Luana Notes/Report: Clinical Information:SRC:ST Clinical Information:SRC: White Blood Cells (WBC), Stool Final report None Seen Result 1 No white blood cells seen. TSH-[id number] Reviewed date:01/01/2024 07:51:46 AM Interpretation: Performing Lab:[facility], [address] [place] [address], Phone - [phone], Director Taisha Ndiaye Notes/Report: TSH 0.909 0.450-4.500 uIU/mL Sedimentation Rate-Westergre n-871141 Reviewed date:04/02/2024 05:29:02 PM Interpretation: Performing Lab:[facility], Phone - [phone], Director Taisha Ndiaye Notes/Report: Sedimentation Rate-Westergren 6 0-32 mm/hr C-Reactive Protein, Quant-00 6627 Reviewed date:04/02/2024 05:29:54 PM Interpretation: Performing Lab:[facility] [address], Phone - [phone], Director [facility] Notes/Report: C-Reactive Protein, Quant 1 0-10 mg/L Celiac Disease Panel-[id number] Reviewed date:04/02/2024 05:26:59 PM Interpretation: Performing [facility], Phone - [phone], [facility] [place]Report: Endomysial Antibody IgA Negative Negative t-Transglutaminase (tTG) IgA <2 0-3 U/mL Negative 0 - 3 Weak Positive 4 - 10 Positive >10 . Tissue Transglutaminase (tTG) has been identified as the endomysial antigen. Studies have demonstr- ated that endomysial IgA antibodies have over 99% specificity for gluten sensitive enteropathy. Immunoglobulin A, Qn, Serum 235 87-352 mg/dL Lactose Tolerance Test-01177 0 Reviewed date:04/02/2024 05:28:18 PM Interpretation: Performing Lab:[address], Phone - [phone], [facility] [place]/Report: Glucose 1 79 Glucose 2 120 Glucose 3 81 Glucose 4 74 Glucose 5 73 Comment: An increase in plasma glucose greater than 30 mg/dL is normal. Those with lactase deficiency will demonstrate bloating, cramps, and diarrhea, and will show a glucose increase of less than 20 mg/dL. False positive results may occur because of lack of the increase of blood glucose concentration attributable to normal insulin response to the carbohydrate load. Lipid Panel-[id number] Reviewed date:01/01/2024 07:51:40 AM Interpretation: Performing Lab:[address], Phone - [phone], [facility] [place]/Report: Cholesterol, Total 156 100-199 mg/dL Triglycerides 120 0-149 mg/dL HDL Cholesterol 48 >39 mg/dL VLDL Cholesterol Willy 21 5-40 mg/dL LDL Chol Calc ([facility]) 87 0-99 mg/dL Comp. Metabolic Panel (14)-3 Reviewed date:01/05/2024 01:28:15 PM Interpretation: Performing Lab:[address], Phone - [phone], [facility] [place]/Report: Glucose 90 70-99 mg/dL BUN 10 6-24 mg/dL Creatinine 0.72 0.57-1.00 mg/dL eGFR 108 >59 mL/min/1.73 BUN/Creatinine Ratio 14 9-23 Sodium 140 134-144 mmol/L Potassium 4.1 3.5-5.2 mmol/L Chloride 105 96-106 mmol/L Carbon Dioxide, Total 21 20-29 mmol/L Calcium 9.3 8.7-10.2 mg/dL Protein, Total 6.6 6.0-8.5 g/dL Albumin 4.4 3.9-4.9 g/dL Globulin, Total 2.2 1.5-4.5 g/dL Bilirubin, Total 0.5 0.0-1.2 mg/dL Alkaline Phosphatase 99 44-121 IU/L AST (SGOT) 82 0-40 IU/L ALT (SGPT) 72 0-32 IU/L Comp. Metabolic Panel (14)-3 21917 Reviewed date:09/04/2023 07:38:45 AM Interpretation: Performing Lab:[facility], [address], [place], Phone - [phone], Director - Zelda Notes/Report: Glucose 82 70-99 mg/dL BUN 4 6-20 mg/dL Creatinine 0.73 0.57-1.00 mg/dL eGFR 107 >59 mL/min/1.73 BUN/Creatinine Ratio 5 9-23 Sodium 139 134-144 mmol/L Potassium 4.2 3.5-5.2 mmol/L Chloride 103 96-106 mmol/L Anion Gap 14.0 10.0-18.0 mmol/L Carbon Dioxide, Total 22 20-29 mmol/L Calcium 9.3 8.7-10.2 mg/dL Protein, Total 6.5 6.0-8.5 g/dL Albumin 4.3 3.9-4.9 g/dL Globulin, Total 2.2 1.5-4.5 g/dL A/G Ratio 2.0 1.2-2.2 Bilirubin, Total 0.5 0.0-1.2 mg/dL Alkaline Phosphatase 101 44-121 IU/L AST (SGOT) 30 0-40 IU/L ALT (SGPT) 31 0-32 IU/L LP+Non-HDL Cholesterol-22706 5 Reviewed date:09/04/2023 07:38:51 AM Interpretation: Performing Lab:[facility] [place], [address] [place] [address], [place], Phone - [phone], Director - Zelda Notes/Report: Cholesterol, Total 163 100-199 mg/dL Triglycerides 130 0-149 mg/dL HDL Cholesterol 54 >39 mg/dL VLDL Cholesterol Willy 23 5-40 mg/dL LDL Chol Calc (NIH) 86 0-99 mg/dL Non-HDL Cholesterol 109 0-129 mg/dL Hgb A1c with eAG Estimation- [id number] Reviewed date:09/04/2023 07:37:11 AM Interpretation: Performing Lab:[facility] [place], [address] [place] [address], [place], Phone - [phone], Director - Zelda Notes/Report: Hemoglobin A1c 5.1 4.8-5.6 % . Prediabetes: 5.7 - 6.4 Diabetes: >6.4 Glycemic control for adults with diabetes: <7.0 Estim. Avg Glu (eAG) 100 Vitamin D, 58-Fuwxalm-[id number] Reviewed date:09/04/2023 12:00:13 PM Interpretation: Performing Lab:[facility] [place], [address] [place] [address], [place], Phone - [phone], Director - Zelda Notes/Report: Vitamin D, 25-Hydroxy 11.5 30.0-100.0 ng/mL Vitamin D deficiency has been defined by the [place] of Medicine and an Endocrine Society practice guideline as a level of serum 25-OH vitamin D less than 20 ng/mL (1,2). The Endocrine Society went on to further define vitamin D insufficiency as a level between 21 and 29 ng/mL (2). 1. IOM ([place] of Medicine). 2010. Dietary reference intakes for calcium and D. [place]: The National Academies Press. 2. Abraham MF, Ramez NC, Tamra JONES, et al. Evaluation, treatment, and prevention of vitamin D deficiency: an Endocrine Society clinical practice guideline. JCEM. 2010; 96(7):1911-30. TSH-[id number] Reviewed date:09/04/2023 07:37:05 AM Interpretation: Performing Lab:[facility] [place], [address] [place] [address], [place], Phone - [phone], Director - Zelda Notes/Report: TSH 0.721 0.450-4.500 uIU/mL Reason For Referral Reason Evaluation and manag ement Diagnosis 1 Encounter for allerg y testing (Z01.82) Referral Organization [facility] Referring Provider First Name RACHNA Referring Provider Last Name WM Referring Provider Speciality Internal edicine Referred Provider Specialty Ear, nose an d throat surgeon General Notes Referral faxed to [facility] - Dept will call patient for scheduling.Shiva Latraya 09/28/2023 03:06:17 PM > Referral Priority Routine Reason Evaluation and manag ement Diagnosis 1 Unspecified hearing loss, unspecified ear (H91.90) Referral Organization [facility] Referring Provider First Name RACHNA Referring Provider Last Name [facility] Referring Provider Speciality Internal edicine Referred Provider Specialty Audiologists General Notes Referral sent to [facility] - Office will call patient for scheduling.Shiva Latraya 12/24/2023 12:21:03 PM > Referral Priority Routine Reason Evaluation and manag ement Diagnosis 1 Cervicalgia (M54.2) Referral Organization [facility] Referring Provider First Name RACHNA Referring Provider Last Name [facility] Referring Provider Speciality Internal edicine Referred Provider Specialty Physical The rapist General Notes Referral sent to [facility] Physical Therapy in [place] - Office will call patient for scheduling.Shiva Latraya 12/24/2023 12:25:35 PM > Referral Priority Routine Reason Evaluation and manag ement Diagnosis 1 Major depressive dis order, recurrent, moderate (F33.1) Diagnosis 2 Generalized anxiety disorder (F41.1) Diagnosis 3 Post-traumatic stres s disorder, unspecified (F43.10) Diagnosis 4 Sleep terrors [night terrors] (F51.4) Diagnosis 5 Insomnia, unspecifie d (G47.00) Referral Organization [facility] Referring Provider First Name RACHNA Referring Provider Last Name [facility] Referring Provider Speciality Internal edicine Referred Provider Specialty Psychiatry General Notes Referral sent to Dr. Pacheco - Office will call patient for scheduling.Shiva Latraya 01/20/2024 03:44:10 PM > Referral Priority Routine Reason please evaluate and treat Diagnosis 1 Neck pain (M54.2) Referral Organization [facility] Referring Provider First Name Aries Referring Provider Last Name Thompson Referred Provider Specialty Orthopedic S urgery General Notes Referral faxed to [facility]. Please contact the patient to schedule., Arianna Donaldson 03/24/2024 12:46:39 PM > Referral Priority Routine Reason Diarrhea flare up-po sitive Lactoferrin, negative Calprotectin, negative WBC Diagnosis 1 Abnormal immunologic al findings in specimens from other organs, systems and tissues (R89.4) Referral Organization [facility] Referring Provider First Name Johann Referring Provider Last Name Desirae Referred Provider Specialty Gastroentero logy General Notes Referral faxed to [facility]. Please contact the patient to schedule., Arianna Donaldson 04/20/2024 05:47:42 PM > Referral Priority Urgent Reason Needs help with medi cation adherence Diagnosis 1 Patient's other nonc ompliance with medication regimen for other reason (Z91.148) Referral Organization [facility] Referring Provider First Name Johann Referring Provider Last Name Desirae Referred Provider Specialty Registered N lauren Referral Priority Routine Medications Medication SIG (Take, Route, Frequency, Duration) Notes Start Date End Date Status tiZANidine HCl 2 MG 1 tablet at bedtime as needed Orally Once a day for 30 days Not-Taking traZODone HCl 50 MG 1 tablet at bedtime as needed Orally Once a day PSY Not-Taking Vitamin B12 1000 MCG 1 tablet Orally Onc e a day for 30 day(s) 01/29/2022 Not-Taking Bisacodyl EC 5 MG 1 tablet as needed Orally Once a day Not-Taking LaMICtal 25 MG 1 tablet Orally Active Meloxicam 15 MG 1 tablet Orally Once a day for 30 days 08/27/2022 Not-Taking Vitamin D 25 MCG (1000 UT) 1 tablet Orally Once a day Not-Taking Pantoprazole Sodium 40 MG 1 tablet Orall y Once a day Not-Taking Divalproex Sodium ER 500 MG 1 tablet Orally Once a day PSY Not-Taking Folic Acid 1 MG 1 tablet Orally Once a day Not-Taking Naltrexone HCl 50 MG 1 tablet Orally Onc e a day Not-Taking Divalproex Sodium 500 MG 1 tablet Orally Once a day PSY Not-Taking Dicyclomine HCl 20 MG 1 tablet Orally Th ree times a day for 30 days 03/08/2024 Active Cefpodoxime Proxetil 200 MG 1 tablet with food Orally every 12 hrs Active Meclizine HCl 25 MG 1 tablet as needed Orally DAILY for 10 days 09/11/2022 Not-Taking Pantoprazole Sodium 20 MG 1 tablet 1/2 t o 1 hour before morning meal Orally Once a day for 30 days 03/08/2024 Active Cholestyramine 4 GM/DOSE 1 scoop Orally Once a day for 30 days Active Pantoprazole Sodium 40 MG 1 tablet 1/2 t o 1 hour before morning meal Orally Once a day for 30 days Active hydrOXYzine HCl 50 MG 1 tablet Orally ev davon 6 hrs as needed PSY Not-Taking predniSONE 20 MG 1 tablet Orally Once a day for 7 days 03/16/2024 Not-Taking SEROquel 100 MG 1 tablet at bedtime Orally 50 MG IN THE AM PSY Active Sucralfate 1 GM 1 tablet on an empty stomach Orally Twice a day for 15 days 03/08/2024 Active EPINEPHrine 0.3 MG/0.3ML 0.3 mg intramus cular for severe allergic reaction Injection One time for 30 days 11/26/2023 Active Prazosin HCl 2 MG 2 capsule at bedtime Orally Once a day PSY Unknown Zolpidem Tartrate 5 MG 2 tablet at bedti me Orally Once a day PSY Unknown Immunizations Vaccine Route Administration Date Status Comme nts COVID 19 Pfizer Unknown 08/05/2020 Administered COVID 19 Pfizer Unknown 08/26/2020 Administered Flu Shot Unknown 04/01/2023 Administered Fluzone QD Unknown 05/22/2017 Administered Hep B, adult dosage, for intramuscular use Unknown 03/17/2017 Administered Hep B, adult dosage, for intramuscular use Unknown 04/17/2017 Administered Tdap Unknown 05/10/2009 Administered Tdap IM Intramuscular 04/03/2023 Administered Social History Tobacco Use: Social History Observation Description Date Details (start date - stop date) Never Smoker NA - NA Tobacco Use/Smoking Question Answer Notes Are you a nonsmoker Problems Problem Type SNOMED Code ICD Code Onset Dates Problem Status W/U Status Risk Notes Problem Obesity due to excess calories (500761660) Other obesity due to excess calories (E66.09) Active confirmed Problem Mixed hyperlipidemia (468637323) Mixed hyperlipidemia (E78.2) Active confirmed Problem Moderate recurrent major depression (95102256) Major depressive disorder, recurrent, moderate (F33.1) Active confirmed Problem Generalized anxiety disorder (89059504) Generalized anxiety disorder (F41.1) Active confirmed Problem Anxiety disorder (555195110) Anxiety disorder, unspecified (F41.9) Active confirmed Problem Post-traumatic stress disorder (81463100) Post-traumatic stress disorder, unspecified (F43.10) Active confirmed Problem Sleep dysfunction with arousal disturbance (614531892) Sleep terrors [night terrors] (F51.4) Active confirmed Problem Insomnia (128972585) Insomnia, unspecified (G47.00) Active confirmed Problem Carpal tunnel syndrome (81977674) Carpal tunnel syndrome, right upper limb (G56.01) Active confirmed Problem Hearing loss (68792018) Unspecified hearing loss, unspecified ear (H91.90) Active confirmed Problem Irritable bowel syndrome with diarrhea (249416285) Irritable bowel syndrome with diarrhea (K58.0) Active confirmed Problem Abnormal immunology finding (975362615) Abnormal immunological findings in specimens from other organs, systems and tissues (R89.4) Active confirmed Problem Suicide attempt (60383945) Suicide attempt (T14.91) Active confirmed Problem History of bariatric surgical procedure (196455230) Bariatric surgery status (Z98.84) Active confirmed Problem Amnesia (28337004) Complaints of memory disturbance (R41.3) Active confirmed Problem Gastroesophageal reflux disease without esophagitis (545307781) Gastroesophageal reflux disease without esophagitis (K21.9) Active confirmed Problem Chronic sinusitis (74154173) Sinusitis, unspecified chronicity, unspecified location (J32.9) Active confirmed Problem Anxiety state (208448975) Anxiety state, unspecified (F41.1) Active confirmed Problem Neck pain (09851866) Neck pain (M54.2) Active confirmed Vital Signs Heart Rate 76 /min 06/21/2024 Temperature 97.2 degrees Fahrenheit 06/21/2024 Oximetry 98 % 06/21/2024 Blood pressure diastolic 72 mm Hg 06/21/2024 Height 5'2 in 06/21/2024 Blood pressure systolic 104 mm Hg 06/21/2024 Weight 205.9 lbs 06/21/2024 BMI 37.66 kg/m2 06/21/2024 Encounters Encounter Location Date Provider Diagnosis [address] [address] 04/29/2024 RACHNA BURKL [address] [address] 09/03/2023 Aries Mackay Counseling, unspecif ied Z71.9 ; Muscle tension pain M79.10 and MDD (major depressive disorder), recurrent episode, moderate F33.[address] [address] 12/22/2023 RACHNA HARDEN Myalgia of auxiliary muscles, head and neck M79.12 ; Dry mouth, unspecified R68.2 ; Major depressive disorder, recurrent, moderate F33.1 ; Other obesity due to excess calories E66.09 ; Dietary counseling and surveillance Z71.3 ; Bariatric surgery status Z98.84 and Unspecified hearing loss, unspecified ear H91.[address] [address] 03/08/2024 Aries Mackay Irritable bowel synd dorothy with diarrhea K58.0 ; Epigastric pain R10.13 and Neck pain M54.[address] [address] 03/16/2024 Aries Mackay Radial styloid tenosynovitis [de Quervain] M65.4 ; Carpal tunnel syndrome, right upper limb G56.01 ; Gastroesophageal reflux disease without esophagitis K21.9 and Diarrhea, unspecified R19.[address] [address] 05/04/2024 Aries Mackay Annual visit for [facility] adult medical examination without abnormal findings Z00.00 ; Complaints of memory disturbance R41.3 ; Gastroesophageal reflux disease without esophagitis K21.9 ; Diarrhea, unspecified R19.7 ; Major depressive disorder, recurrent, moderate F33.1 ; Generalized anxiety disorder F41.1 ; Other obesity due to excess calories E66.09 and Encounter for screening for cardiovascular disorders Z13.[address] [address] 05/18/2024 Ghadeer Mazloum Abdominal pain in fe male R10.9 [facility] [address] [facility] [facility] [address] [place] [address] 05/19/2024 Ghadeer Mazloum Acute cystitis with hematuria N30.01 [facility] [address] [place] [address] 06/21/2024 Aroosa Alam Acute cystitis with hematuria N30.01 ; Hospital discharge follow-up Z09 and Anxiety disorder, unspecified F41.9 [facility] [address] [facility] [place] [address] 08/19/2023 [facility] [address] [place] [address] 08/25/2023 [facility] [address] [place] [address] 09/03/2023 [facility] Muscle tension pain M79.10 [facility] [address] [place] [address] 09/04/2023 [facility] [address] [place] [address] 09/25/2023 [facility] [address] [facility] [address] [place] [address] 10/12/2023 [facility] [address] [facility] [address] [place] [address] 10/22/2023 [facility] [address] [facility] [place] [address] 10/23/2023 [facility] [address] [place] [address] 10/29/2023 [facility] [address] [place] [address] 11/26/2023 [facility] [address] [place] [address] 12/07/2023 [facility] [address] [place] [address] 12/09/2023 [facility] [address] [place] [address] 12/17/2023 [facility] [address] [place] [address] 01/05/2024 [facility] Elevation of levels of liver transaminase levels R74.01 [facility] [address] [place] [address] 01/05/2024 [facility] [address] [place] [address] 01/20/2024 [facility] [address] [place] [address] 01/20/2024 [facility] [address] [place] [address] 02/05/2024 [facility] [address] [place] [address] 04/09/2024 Aries Mackay Abnormal immunologic al findings in specimens from other organs, systems and tissues R89.4 [facility] [address] [facility] [place] [address] 05/16/2024 [facility] [address] [place] [address] 04/09/2024 [facility] [address] [place] [address] 04/09/2024 [facility] [address] [place] [address] 05/25/2024 [facility] [address] [facility] [place] [address] 05/25/[address] [place] [address] 05/25/[address] [place] [address] 06/07/[address] [place] [address] 06/13/[address] [place] [address] 06/19/[address] [place] [address] 06/19/2024 Aries Mackay [address] [place] [address] 06/20/[address] [address] 06/21/2024 [facility] Assessments Encounter Date Diagnosis (ICD Code) Assessment Notes Treatment Notes Treatment Clinical Notes Section Notes 09/03/2023 Muscle tension pain (ICD-10 - M79.10) 09/03/2023 Counseling, unspecified (ICD-10 - Z71.9) Ms. Moreno is a 37 year old lady with GERD, PTSD and major depressive disorder here for body tightness. Patient states that for past weeks after getting discharged from the inpatient psych hospital, has been feeling body tightness all over her body and gets exhausted easily. Associated symptoms are: tingling/numbness sensation, brain fog, headache, insomnia. Plan as follows: DDX for muscle tightness: autoimmune disease, fibromyalgia, rhabdo, stress related tension. Ordered bloodwork. We will follow on that. At the moment start on Tizanidine. Stay hydrated. Depression: Patient is on the right regimen. Follows-up with psychiatrist and therapist. No active suicidal ideation. Patient is advised on reaching out to [facility] for help, call crisis line for any suicidal ideation. Stay active and ask for family support when in need. Patient seen and examined with PA. Agree with the above mentioned assessment and plan 09/03/2023 Muscle tension pain (ICD-10 - M79.10) Ms. Moreno is a 37 year old lady with GERD, PTSD and major depressive disorder here for body tightness. Patient states that for past weeks after getting discharged from the inpatient psych hospital, has been feeling body tightness all over her body and gets exhausted easily. Associated symptoms are: tingling/numbness sensation, brain fog, headache, insomnia. Plan as follows: DDX for muscle tightness: autoimmune disease, fibromyalgia, rhabdo, stress related tension. Ordered bloodwork. We will follow on that. At the moment start on Tizanidine. Stay hydrated. Depression: Patient is on the right regimen. Follows-up with psychiatrist and therapist. No active suicidal ideation. Patient is advised on reaching out to [facility] for help, call crisis line for any suicidal ideation. Stay active and ask for family support when in need. Patient seen and examined with PA. Agree with the above mentioned assessment and plan 06/21/2024 Acute cystitis with hematuria (ICD-10 - N30.01) Ms. Moreno is a 38 year old lady with GERD, PTSD and major depressive disorder who was admitted to [facility] unit she is here today for post hospital discharge. Follow-up Post hospital discharge 14 day follow-up. Patient is in a good mood today. She denies any increased anxiety or depression. She was admitted to the hospital for overdose and suicidal ideation. She she remained under psychiatric supervision they have discontinued Wellbutrin and started her on Lamictal 25 mg daily she is also on Seroquel 100 mg at night. Currently she is doing well and is following up with her psychiatrist and counselor at [facility] psychiatric unit I [facility] Medications were reviewed with the patient. Abdominal pain improved she was treated for acute cystitis in May 2024. Currently no acute issues. Concussion patient reported 3 weeks ago during her hospitalization she banged her head into the wall. It does not appear that any imaging was done as patient is neurologically intact. She has no headache no change in motor strength. No nausea or vomiting. She denies any vision changes. She does report at times she gets some ringing in the year. She has history of hallucinations. Patient also needed a work note which was provided today. 06/21/2024 Hospital discharge follow-up (ICD-10 - Z09) Ms. Moreno is a 38 year old lady with GERD, PTSD and major depressive disorder who was admitted to [facility] unit she is here today for post hospital discharge. Follow-up Post hospital discharge 14 day follow-up. Patient is in a good mood today. She denies any increased anxiety or depression. She was admitted to the hospital for overdose and suicidal ideation. She she remained under psychiatric supervision they have discontinued Wellbutrin and started her on Lamictal 25 mg daily she is also on Seroquel 100 mg at night. Currently she is doing well and is following up with her psychiatrist and counselor at [facility] I reviewed all the discharge [facility]. Medications were reviewed with the patient. Abdominal pain improved she was treated for acute cystitis in May 2024. Currently no acute issues. Concussion patient reported 3 weeks ago during her hospitalization she banged her head into the wall. It does not appear that any imaging was done as patient is neurologically intact. She has no headache no change in motor strength. No nausea or vomiting. She denies any vision changes. She does report at times she gets some ringing in the year. She has history of hallucinations. Patient also needed a work note which was provided today. 05/04/2024 Complaints of memory disturbance (ICD-10 - R41.3) Ms. Moreno is a 38-year-old lady with GERD, PTSD and major depressive disorder here for Annual physical exam. Plan as follows: GERD: -Stable. Continue on omeprazole 40mg. Diet modification and weight loss are suggested. I have advised patient that if symptoms persist despite being on max dose of pantoprazole 40 mg then we will consider endoscopy to rule out any esophagitis. Diarrhea IBS - Stable she is currently on dicyclomine and cholestyramine. She was given a referral to GI, patient is to follow up on further management given the recent lactoferrin mildly elevated. PTSD MDD - PHQ 9 of 18. She does follow up with psychiatrist and mental health therapist on a regular basis. I have advised patient that if she develops any suicidal ideation with an up/should contact crisis line. Complaints of memory disturbance - Mini-Mental state examination with a score of 30 indicating no cognitive impairment. I have discussed with the patient that given her ongoing depression and stress that could also affect the memory. I have advised patient on less than modification, she can start exercising more cardio, and include brain stimulation activities as well. Obesity - Advice and identification with exercising. Goal to lose through 4 pounds monthly vision screening: She is up-to-date on visual screening Dental screening she is up to date Dermatology she was given a referral to [facility], patient is to call with an appointment for a full skin evaluation Breast and pelvic exam she is [id number] she follows with [facility] at [facility]. They have ordered mammogram She is up-to-date on vaccinations and specific age screenings General concerns have been discussed Screening blood work before next appointment I have rendered the services for this patient under direct supervision of Dr. Harden, who did not see the patient but was available upon request 12/22/2023 Myalgia of auxiliary muscles, head and neck (ICD-10 - M79.12) Ms. Moreno is 38 years old pleasant lady with major depressive recurrent moderate disorder, PTSD, generalized anxiety disorder, insomnia, obesity is here for high blood pressure at home and she also complains of dry mouth and fogginess and neck pain. Plan is as follows Hypertension. Her blood pressure is within normal limits today and advised to continue sodium restriction. Neck pain. Muscle sprain/strain. Referral to physical therapy and she can use Tylenol arthritis [id number]. Fogginess and dry mouth. Secondary to polypharmacy. Seroquel and trazodone can give her fogginess and hydroxyzine will give her dry mouth along with tizanidine. Hearing loss. Referral to borematic operator Obesity. She is status post bariatric surgery. Encouraged to lose weight. MDD/PTSD/TREY. She is stable on current regimen. 01/05/2024 Elevation of levels of liver transaminase levels (ICD-10 - R74.01) 03/08/2024 Irritable bowel syndrome with diarrhea (ICD-10 - K58.0) Ms. Moreno is a 38-year old lady with GERD, PTSD and major depressive disorder here for multiple chief complaints. Plan As follows Epigastric pain - She complains of belching and vomiting. It is triggered by eating. She was on omeprazole 40 mg beforebut she stopped taking it, unclear reasons. Physical examination is remarkable for tenderness in the epigastric area. I started patient on pantoprazole 20 mg and carafate. Cannot r/o ulcer/gastritis. Advised patient that if symptoms not resolve that she did contact the office to be evaluated further. Irritable bowel syndrome with diarrhea - She states that she has class at the area that happens multiple times during the day for the past months, it is not a new onset it has been chronically. Most likely IBS with diarrhea, she also admits to stomach cramps. Advised patient on a voiding gluten. Start patient on dicyclomine for a trial. Advised that she can also take Imodium to help with the diarrhea. - No red flag symptoms Neck pain - She was referred to PT. She admits to slight improvement. She has not been taking tizanidine. I have referred patient to orthopedics for further management. I have rendered the services for this patient under direct supervision of Dr. Harden, who did not see the patient but was available upon request 03/08/2024 Epigastric pain (ICD-10 - R10.13) Ms. Moreno is a 38-year old lady with GERD, PTSD and major depressive disorder here for multiple chief complaints. Plan As follows Epigastric pain - She complains of belching and vomiting. It is triggered by eating. She was on omeprazole 40 mg beforebut she stopped taking it, unclear reasons. Physical examination is remarkable for tenderness in the epigastric area. I started patient on pantoprazole 20 mg and carafate. Cannot r/o ulcer/gastritis. Advised patient that if symptoms not resolve that she did contact the office to be evaluated further. Irritable bowel syndrome with diarrhea - She states that she has class at the area that happens multiple times during the day for the past months, it is not a new onset it has been chronically. Most likely IBS with diarrhea, she also admits to stomach cramps. Advised patient on a voiding gluten. Start patient on dicyclomine for a trial. Advised that she can also take Imodium to help with the diarrhea. - No red flag symptoms Neck pain - She was referred to PT. She admits to slight improvement. She has not been taking tizanidine. I have referred patient to orthopedics for further management. I have rendered the services for this patient under direct supervision of Dr. Harden, who did not see the patient but was available upon request 03/16/2024 Carpal tunnel syndrome, right upper limb (ICD-10 - G56.01) Ms. Moreno is a 38 year old lady with GERD, PTSD and major depressive disorder here for Weakness in her right hand. She also endorses diarrhea, GERD. Plan as follows: DeQuarvain Tensoynovitis: - Positive Flinkelstein, tender to palpate along the lateral side of the wrist. Cannot start patient on Ibuprofen due to consistent GERD flare up. I have started patient on prednisone for seven days. She can also use Tylenol as needed. Splint and compression are recommended. Carpal Tunnel syndrome: - Positive Phalen, recommended night splints. Can take Tylenol as needed for pain. EMG to r/o any other nerve damage. GERD: - She is currently on pantoprazole 20mg, increased to 40mg. Diet modification and weight loss are suggested. I have advised patient that if symptoms persist despite being on max dose of pantoprazole 40 mg then we will consider endoscopy to rule out any esophagitis. Diarrhea - We have recently start patient on dicyclomine for possible IBS giving random episodes of diarrhea not mainly associated with food. She states that she has not noticed any difference. She has history of cholecystectomy possible diarrhea related to that we have started patient on cholestyramine to rule out diarrhea status post cholecystectomy. We will also rule out underlying causes as such IBD, celiac, and lactose intolerance. Patient is advised on diet modification. She will call us and inform us if there has been an improvement or worsening symptoms. I have rendered the services for this patient under direct supervision of Dr. Harden, who did not see the patient but was available upon request 03/16/2024 Radial styloid tenosynovitis [de Quervain] (ICD-10 - M65.4) Ms. Moreno is a 38 year old lady with GERD, PTSD and major depressive disorder here for Weakness in her right hand. She also endorses diarrhea, GERD. Plan as follows: DeQuarvain Tensoynovitis: - Positive Flinkelstein, tender to palpate along the lateral side of the wrist. Cannot start patient on Ibuprofen due to consistent GERD flare up. I have started patient on prednisone for seven days. She can also use Tylenol as needed. Splint and compression are recommended. Carpal Tunnel syndrome: - Positive Phalen, recommended night splints. Can take Tylenol as needed for pain. EMG to r/o any other nerve damage. GERD: - She is currently on pantoprazole 20mg, increased to 40mg. Diet modification and weight loss are suggested. I have advised patient that if symptoms persist despite being on max dose of pantoprazole 40 mg then we will consider endoscopy to rule out any esophagitis. Diarrhea - We have recently start patient on dicyclomine for possible IBS giving random episodes of diarrhea not mainly associated with food. She states that she has not noticed any difference. She has history of cholecystectomy possible diarrhea related to that we have started patient on cholestyramine to rule out diarrhea status post cholecystectomy. We will also rule out underlying causes as such IBD, celiac, and lactose intolerance. Patient is advised on diet modification. She will call us and inform us if there has been an improvement or worsening symptoms. I have rendered the services for this patient under direct supervision of Dr. Harden, who did not see the patient but was available upon request 04/09/2024 Abnormal immunological findings in specimens from other organs, systems and tissues (ICD-10 - R89.4) 05/04/2024 Annual visit for general adult medical examination without abnormal findings (ICD-10 - Z00.00) Ms. Moreno is a 38-year-old lady with GERD, PTSD and major depressive disorder here for Annual physical exam. Plan as follows: GERD: -Stable. Continue on omeprazole 40mg. Diet modification and weight loss are suggested. I have advised patient that if symptoms persist despite being on max dose of pantoprazole 40 mg then we will consider endoscopy to rule out any esophagitis. Diarrhea IBS - Stable she is currently on dicyclomine and cholestyramine. She was given a referral to GI, patient is to follow up on further management given the recent lactoferrin mildly elevated. PTSD MDD - PHQ 9 of 18. She does follow up with psychiatrist and mental health therapist on a regular basis. I have advised patient that if she develops any suicidal ideation with an up/should contact crisis line. Complaints of memory disturbance - Mini-Mental state examination with a score of 30 indicating no cognitive impairment. I have discussed with the patient that given her ongoing depression and stress that could also affect the memory. I have advised patient on less than modification, she can start exercising more cardio, and include brain stimulation activities as well. Obesity - Advice and identification with exercising. Goal to lose through 4 pounds monthly vision screening: She is up-to-date on visual screening Dental screening she is up to date Dermatology she was given a referral to [facility], patient is to call with an appointment for a full skin evaluation Breast and pelvic exam she is [id number] she follows with [facility] at [facility]. They have ordered mammogram She is up-to-date on vaccinations and specific age screenings General concerns have been discussed Screening blood work before next appointment I have rendered the services for this patient under direct supervision of Dr. Harden, who did not see the patient but was available upon request 05/18/2024 Abdominal pain in female (ICD-10 - R10.9) Ms. Moreno is a 38 year old lady with GERD, PTSD and major depressive disorder here for abdominal pain for the past two weeks, And symptoms are worsening and pain is becoming more constant. Plan as follows Abdominal pain - She states that has been ongoing for the past 2 weeks with the pain is constant it is mainly in the right mid quadrants and a diffuse disc across the belly. She denies any fever, chills, constipation/diar linus, nausea vomit. Vital signs are unremarkable. Physical examination is remarkable for positive McBurney sign, positive obturator sign, With rebound tenderness. High suspicion for appendicitis. I advised patient on going to the ER immediately for further evaluation. I have rendered the services for this patient under direct supervision of Dr. Harden, who did not see the patient but was available upon request 05/19/2024 Acute cystitis with hematuria (ICD-10 - N30.01) Ms. Moreno is a 38 year old lady with GERD, PTSD and major depressive disorder here for [facility] ER follow-up. Patient was diagnosed with acute cystitis and she is currently still on antibiotic. Plan as follows Acute status with hematuria - She is currently on abx. Patient is to be on the medication for 7 days. I have advised that mostly by tomorrow for sxs to start improving. Advised on taking Tylenol as needed, start probiotics and cranberry juice. I have rendered the services for this patient under direct supervision of Dr. Harden, who did not see the patient but was available upon request 12/22/2023 Dry mouth, unspecified (ICD-10 - R68.2) Ms. Moreno is 38 years old pleasant lady with major depressive recurrent moderate disorder, PTSD, generalized anxiety disorder, insomnia, obesity is here for high blood pressure at home and she also complains of dry mouth and fogginess and neck pain. Plan is as follows Hypertension. Her blood pressure is within normal limits today and advised to continue sodium restriction. Neck pain. Muscle sprain/strain. Referral to physical therapy and she can use Tylenol arthritis [id number]. Fogginess and dry mouth. Secondary to polypharmacy. Seroquel and trazodone can give her fogginess and hydroxyzine will give her dry mouth along with tizanidine. Hearing loss. Referral to borematic operator Obesity. She is status post bariatric surgery. Encouraged to lose weight. MDD/PTSD/TREY. She is stable on current regimen. 03/16/2024 Gastroesophageal reflux disease without esophagitis (ICD-10 - K21.9) Ms. Moreno is a 38 year old lady with GERD, PTSD and major depressive disorder here for Weakness in her right hand. She also endorses diarrhea, GERD. Plan as follows: DeQuarvain Tensoynovitis: - Positive Flinkelstein, tender to palpate along the lateral side of the wrist. Cannot start patient on Ibuprofen due to consistent GERD flare up. I have started patient on prednisone for seven days. She can also use Tylenol as needed. Splint and compression are recommended. Carpal Tunnel syndrome: - Positive Phalen, recommended night splints. Can take Tylenol as needed for pain. EMG to r/o any other nerve damage. GERD: - She is currently on pantoprazole 20mg, increased to 40mg. Diet modification and weight loss are suggested. I have advised patient that if symptoms persist despite being on max dose of pantoprazole 40 mg then we will consider endoscopy to rule out any esophagitis. Diarrhea - We have recently start patient on dicyclomine for possible IBS giving random episodes of diarrhea not mainly associated with food. She states that she has not noticed any difference. She has history of cholecystectomy possible diarrhea related to that we have started patient on cholestyramine to rule out diarrhea status post cholecystectomy. We will also rule out underlying causes as such IBD, celiac, and lactose intolerance. Patient is advised on diet modification. She will call us and inform us if there has been an improvement or worsening symptoms. I have rendered the services for this patient under direct supervision of Dr. Harden, who did not see the patient but was available upon request 12/22/2023 Major depressive disorder, recurrent, moderate (ICD-10 - F33.1) Ms. Moreno is 38 years old pleasant lady with major depressive recurrent moderate disorder, PTSD, generalized anxiety disorder, insomnia, obesity is here for high blood pressure at home and she also complains of dry mouth and fogginess and neck pain. Plan is as follows Hypertension. Her blood pressure is within normal limits today and advised to continue sodium restriction. Neck pain. Muscle sprain/strain. Referral to physical therapy and she can use Tylenol arthritis [id number]. Fogginess and dry mouth. Secondary to polypharmacy. Seroquel and trazodone can give her fogginess and hydroxyzine will give her dry mouth along with tizanidine. Hearing loss. Referral to borematic operator Obesity. She is status post bariatric surgery. Encouraged to lose weight. MDD/PTSD/TREY. She is stable on current regimen. 06/21/2024 Anxiety disorder, unspecified (ICD-10 - F41.9) Ms. Moreno is a 38 year old lady with GERD, PTSD and major depressive disorder who was admitted to [facility] unit she is here today for post hospital discharge. Follow-up Post hospital discharge 14 day follow-up. Patient is in a good mood today. She denies any increased anxiety or depression. She was admitted to the hospital for overdose and suicidal ideation. She she remained under psychiatric supervision they have discontinued Wellbutrin and started her on Lamictal 25 mg daily she is also on Seroquel 100 mg at night. Currently she is doing well and is following up with her psychiatrist and counselor at [facility] psychiatric unit I [facility] Medications were reviewed with the patient. Abdominal pain improved she was treated for acute cystitis in May 2024. Currently no acute issues. Concussion patient reported 3 weeks ago during her hospitalization she banged her head into the wall. It does not appear that any imaging was done as patient is neurologically intact. She has no headache no change in motor strength. No nausea or vomiting. She denies any vision changes. She does report at times she gets some ringing in the year. She has history of hallucinations. Patient also needed a work note which was provided today. 03/08/2024 Neck pain (ICD-10 - M54.2) Ms. Moreno is a 38-year old lady with GERD, PTSD and major depressive disorder here for multiple chief complaints. Plan As follows Epigastric pain - She complains of belching and vomiting. It is triggered by eating. She was on omeprazole 40 mg beforebut she stopped taking it, unclear reasons. Physical examination is remarkable for tenderness in the epigastric area. I started patient on pantoprazole 20 mg and carafate. Cannot r/o ulcer/gastritis. Advised patient that if symptoms not resolve that she did contact the office to be evaluated further. Irritable bowel syndrome with diarrhea - She states that she has class at the area that happens multiple times during the day for the past months, it is not a new onset it has been chronically. Most likely IBS with diarrhea, she also admits to stomach cramps. Advised patient on a voiding gluten. Start patient on dicyclomine for a trial. Advised that she can also take Imodium to help with the diarrhea. - No red flag symptoms Neck pain - She was referred to PT. She admits to slight improvement. She has not been taking tizanidine. I have referred patient to orthopedics for further management. I have rendered the services for this patient under direct supervision of Dr. Harden, who did not see the patient but was available upon request 05/04/2024 Gastroesophageal reflux disease without esophagitis (ICD-10 - K21.9) Ms. Moreno is a 38-year-old lady with GERD, PTSD and major depressive disorder here for Annual physical exam. Plan as follows: GERD: -Stable. Continue on omeprazole 40mg. Diet modification and weight loss are suggested. I have advised patient that if symptoms persist despite being on max dose of pantoprazole 40 mg then we will consider endoscopy to rule out any esophagitis. Diarrhea IBS - Stable she is currently on dicyclomine and cholestyramine. She was given a referral to GI, patient is to follow up on further management given the recent lactoferrin mildly elevated. PTSD MDD - PHQ 9 of 18. She does follow up with psychiatrist and mental health therapist on a regular basis. I have advised patient that if she develops any suicidal ideation with an up/should contact crisis line. Complaints of memory disturbance - Mini-Mental state examination with a score of 30 indicating no cognitive impairment. I have discussed with the patient that given her ongoing depression and stress that could also affect the memory. I have advised patient on less than modification, she can start exercising more cardio, and include brain stimulation activities as well. Obesity - Advice and identification with exercising. Goal to lose through 4 pounds monthly vision screening: She is up-to-date on visual screening Dental screening she is up to date Dermatology she was given a referral to [facility], patient is to call with an appointment for a full skin evaluation Breast and pelvic exam she is [id number] she follows with [facility] at [facility]. They have ordered mammogram She is up-to-date on vaccinations and specific age screenings General concerns have been discussed Screening blood work before next appointment I have rendered the services for this patient under direct supervision of Dr. Harden, who did not see the patient but was available upon request 09/03/2023 MDD (major depressive disorder), recurrent episode, moderate (ICD-10 - F33.1) Ms. Moreno is a 37 year old lady with GERD, PTSD and major depressive disorder here for body tightness. Patient states that for past weeks after getting discharged from the inpatient psych hospital, has been feeling body tightness all over her body and gets exhausted easily. Associated symptoms are: tingling/numbness sensation, brain fog, headache, insomnia. Plan as follows: DDX for muscle tightness: autoimmune disease, fibromyalgia, rhabdo, stress related tension. Ordered bloodwork. We will follow on that. At the moment start on Tizanidine. Stay hydrated. Depression: Patient is on the right regimen. Follows-up with psychiatrist and therapist. No active suicidal ideation. Patient is advised on reaching out to [facility] for help, call crisis line for any suicidal ideation. Stay active and ask for family support when in need. Patient seen and examined with PA. Agree with the above mentioned assessment and plan 03/16/2024 Diarrhea, unspecified (ICD-10 - R19.7) Ms. Moreno is a 38 year old lady with GERD, PTSD and major depressive disorder here for Weakness in her right hand. She also endorses diarrhea, GERD. Plan as follows: DeQuarvain Tensoynovitis: - Positive Flinkelstein, tender to palpate along the lateral side of the wrist. Cannot start patient on Ibuprofen due to consistent GERD flare up. I have started patient on prednisone for seven days. She can also use Tylenol as needed. Splint and compression are recommended. Carpal Tunnel syndrome: -

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
--- OUTSIDE RECORDS SUMMARY | 2024-07-23 14:30 | XMS_ITS ---
Author Organization [facility] Address [address] [address] Care Team Providers Care Data Center Manager Name Role Phone RACHNA HARDEN Primary Care Provider REASON FOR VISIT Visiting nurse Encounters Encounter Location Date Provider Diagnosis [facility] [address] [facility] [address] [place] [address] 06/21/2024 RACHNA HARDEN Plan Of Treatment Next Appt Details Provider Name:Aries novak, 05/05/2025 11:00:00 AM, [address], [place], [address], Progress Notes * Anh SOUZAAmbarOB: [birth year] (38 yo F)Acc No.[id number]:06/21/2024 Patient:?Angelica SOUZA :1985???Age:38 Y???Sex:Female Address:[address] [place] [address] * true * Date:? Generated for Printi ng/Faxing/eTransmitting on:?07/23/2024 02:29 PM EDT
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
--- OUTSIDE RECORDS SUMMARY | 2024-07-23 14:30 | XMS_ITS ---
Author Organization [facility] Address [address] [place] [address] [address] [place] [address] Care Team Providers Care Social Work Msw Name Role Phone FINA BRISCOE Primary Care Provider Angelo Azar Unavailable [phone] Allergies Allergen (clinical drug ingredient) Drug/Non Drug Allergy documented on EMR Reaction Allergy Type Onset Date Status peanut allergenic extract Peanut (Diagnostic) Unknown Drug Allergy Active REASON FOR VISIT [facility] 06/17 Medications Medication SIG (Take, Route, Frequency, Duration) Notes Start Date End Date Status Vitamin B12 1000 MCG 1 tablet Orally Onc e a day for 30 day(s) 01/29/2022 Not-Taking Bisacodyl EC 5 MG 1 tablet as needed Orally Once a day Not-Taking Pantoprazole Sodium 40 MG 1 tablet Orall y Once a day Not-Taking Folic Acid 1 MG 1 tablet Orally Once a day Not-Taking Naltrexone HCl 50 MG 1 tablet Orally Onc e a day Not-Taking hydrOXYzine HCl 50 MG 1 tablet Orally ev davon 6 hrs as needed PSY Not-Taking Divalproex Sodium ER 500 MG 1 tablet Orally Once a day PSY Not-Taking Divalproex Sodium 500 MG 1 tablet Orally Once a day PSY Not-Taking tiZANidine HCl 2 MG 1 tablet at bedtime as needed Orally Once a day for 30 days Not-Taking traZODone HCl 50 MG 1 tablet at bedtime as needed Orally Once a day PSY Not-Taking Cholestyramine 4 GM/DOSE 1 scoop Orally Once a day for 30 days Active Pantoprazole Sodium 40 MG 1 tablet 1/2 t o 1 hour before morning meal Orally Once a day for 30 days Active predniSONE 20 MG 1 tablet Orally Once a day for 7 days 03/16/2024 Not-Taking Sucralfate 1 GM 1 tablet on an empty stomach Orally Twice a day for 15 days 03/08/2024 Active EPINEPHrine 0.3 MG/0.3ML 0.3 mg intramus cular for severe allergic reaction Injection One time for 30 days 11/26/2023 Active SEROquel 100 MG 1 tablet at bedtime Orally 50 MG IN THE AM PSY Active Dicyclomine HCl 20 MG 1 tablet Orally Th ree times a day for 30 days 03/08/2024 Active Cefpodoxime Proxetil 200 MG 1 tablet with food Orally every 12 hrs Active Pantoprazole Sodium 20 MG 1 tablet 1/2 t o 1 hour before morning meal Orally Once a day for 30 days 03/08/2024 Active LaMICtal 25 MG 1 tablet Orally Active Meloxicam 15 MG 1 tablet Orally Once a day for 30 days 08/27/2022 Not-Taking Prazosin HCl 2 MG 2 capsule at bedtime Orally Once a day PSY Unknown Zolpidem Tartrate 5 MG 2 tablet at bedti me Orally Once a day PSY Unknown Meclizine HCl 25 MG 1 tablet as needed Orally DAILY for 10 days 09/11/2022 Not-Taking Vitamin D 25 MCG (1000 UT) 1 tablet Orally Once a day Not-Taking Problems Problem Type SNOMED Code ICD Code Onset Dates Problem Status W/U Status Risk Notes Problem Anxiety disorder ([id number]) Anxiety disorder, unspecified (F41.9) Active confirmed Vital Signs Temperature 97.2 degrees Fahrenheit 06/22/19 25 Oximetry 98 % 06/21/2024 Heart Rate 76 /min 06/21/2024 Blood pressure systolic 104 mm Hg 06/22/19 25 Blood pressure diastolic 72 mm Hg 025 Weight 205.9 lbs 06/21/2024 BMI 37.66 kg/m2 06/21/2024 Height 5'2 in 06/21/2024 Encounters Encounter Location Date Provider Diagnosis [facility] [address] [address] 06/21/2024 [place]am Acute cystitis with hematuria N30.01 ; Hospital discharge follow-up Z09 and Anxiety disorder, unspecified F41.9 Assessments Encounter Date Diagnosis (ICD Code) Assessment Notes Treatment Notes Treatment Clinical Notes Section Notes 06/21/2024 Acute cystitis with hematuria (ICD-10 - N30.01) Ms. Souza is a 38 year old lady with GERD, PTSD and major depressive disorder who was admitted to [facility] she is here today for post hospital [...] up with her psychiatrist and counselor at [facility] I reviewed all the discharge paperwork from [facility]. Medications were reviewed with the patient. Abdominal [...] Hospital discharge follow-up (ICD-10 - Z09) Ms. Souza is a 38 year old lady with GERD, PTSD and major depressive disorder who was admitted to [facility] she is here today for post hospital [...] up with her psychiatrist and counselor at [facility] I reviewed all the discharge paperwork from [facility]. Medications were reviewed with the patient. Abdominal [...] work note which was provided today. 06/21/2024 Anxiety disorder, unspecified (ICD-10 - F41.9) Ms. Souza is a 38 year old lady with GERD, PTSD and major depressive disorder who was admitted to [facility] unit she is here today for [...] up with her psychiatrist and counselor at [facility] I reviewed all the discharge paperwork from [facility]. Medications were reviewed with the patient. Abdominal [...] a work note which was provided today. Plan Of Treatment Next Appt Details Provider Name:Aries novak, 05/05/2025 11:00:00 AM, [address] [place] [address], [address], Progress Notes * Anh SOUZAAmbarOB: [birth year] (38 yo F)Acc No.[id number]:06/21/2024 Patient:?Angelica SOUZA Provider:?Angelo Azar DOB:1985???Age:38 Y???Sex:Female D ate:06/21/2024 Address:[facility] [address], [id number] Pcp:RACHNA HARDEN Subjective: * Chief Complaints: * ???[facility] D/C 06/17 * HPI: ???Internal Medicine:?Ms. Souza is a 38 year old lady with GERD, PTSD and major depressive disorder who was recently released from [facility] psychiatric unit on a 06/08/24.? Patient was admitted for suicidal ideation and attempt.? Patient apparently overdosed on Seroquel and citalopram. During her stay medications were changed.? She was taken off of albuterol and was started on Lamictal 25 mg daily along with naltrexone. She currently has no complaints.? She reports sometimes she gets a right-sided flank pain.? She was also recently staying at [facility] for abdominal pain with a CT of the pelvis was done which was unremarkable she was treated for cystitis at that time. Patient also reported that during her stay at the psychiatric unit she had a concussion she developed that after she was banging her head against the wall. She is neurologically intact she currently has no headache no change in motor strength.? No blurry vision.? No nausea or vomiting. Patient is here today for post hospital discharge follow-up. * ROS:?General/Constitutional:?Overall health?Good.?Change in appetite?denies.?Chills?denies.?Fever?denies.?Night sweats?denies.?Sleep disturbance?admits.?Weight gain?denies.?Weight loss?denies.?Neurologic:?Difficulty speaking?denies.?Dizziness?denies.?Gait abnormality?denies.?Headache?denies.?Loss of strength?denies.?Memory loss?no new issues today.?Seizures?denies.?Tingling/Numbness?denies .?Ophthalmologic:?Blurred vision?denies.?Discharge?denies.?Dry eye?denies.?Red eye?denies.?ENT:?Change in Voice?Denies.?Cold Symptoms?Denies.?Cough?Denies.?Dizziness?Denies.?Nasal Congestion?Denies.?Otalgia?Denies.?postnasal drip?Denies.?Blocked ear?denies.?Nosebleed?denies.?Snoring?denies.?Cardiovascular:?Diaphoresis?Denies.?Pedal Edema?Denies.?PND (Paroxsymal nocturnal dyspnea)?Denies.?Chest pain?denies.?Difficulty laying flat?denies.?Dyspnea on exertion?denies.?Heart murmur?denies.?Orthopnea?denies.?Respiratory:?Snoring?denies.?Asthma?denies.?Cough?denies.?Shortness of breath with exertion?denies.?Sputum production?denies.?Wheezing?denies.?Gastrointestinal:?Admits?Abdominal pain.?Change in bowel habits?denies.?Constipation?denies.?Decreased appetite?denies.?Diarrhea?denies.?Heartburn?denies.?Nausea?denies.?Vomiting?brian es.?Musculoskeletal:?tingling/numbness?, Denies.?myalgias?Admits.?Joint Swelling?Denies.?extremeties?normal.?Arthritis?denies.?Back problems?, denies.?Carpal tunnel?denies.?Joint stiffness?denies.?Leg cramps?, denies.?Muscle aches?admits.?Denies?Weakness.?Endocrine:?Bowel Changes?Denies.?Breast Discharge?Denies.?poor libido?Denies.?Cold intolerance?denies.?Excessive sweating?denies.?Excessive thirst?denies.?Frequent urination?denies.?Thyroid problems?denies.?Skin:?Bruising?Denies.?Eczema?denies.?Hair changes?denies.?Rash?denies.?Skin lesion(s)?denies.?Psychiatric:?Anxiety?denies.?Depressed mood?denies.?Difficulty sleeping?denies.?Nervous breakdown?denies.?Substance abuse?denies.?Suicidal thoughts?denies.?Urology:?abnormal menstrual bleeding?denies.?blood in urine?denies.?burning on urination?denies.?difficulty urinating?denies.?discharge?denies.?dysuria?denies.? * Medical History:? * Medications:?TakingLaMICtal 25 MG Tablet 1 tablet Orally Cefpodoxime Proxetil 200 MG Tablet 1 tablet with food Orally every 12 hrs Dicyclomine HCl 20 MG Tablet 1 tablet Orally Three times a day Pantoprazole Sodium 20 MG Tablet Delayed Release 1 tablet 1/2 to 1 hour before morning meal Orally Once a day SEROquel 100 MG Tablet 1 tablet at bedtime Orally 50 MG IN THE AM , Notes to Pharmacist: PSYEPINEPHrine 0.3 MG/0.3ML Solution Auto-injector 0.3 mg intramuscular for severe allergic reaction Injection One time Sucralfate 1 GM Tablet 1 tablet on an empty stomach Orally Twice a day Pantoprazole Sodium 40 MG Tablet Delayed Release 1 tablet 1/2 to 1 hour before morning meal Orally Once a day Cholestyramine 4 GM/DOSE Powder 1 scoop Orally Once a day Taking LaMICtal 25 MG Tablet 1 tablet Orally Taking Cefpodoxime Proxetil 200 MG Tablet 1 tablet with food Orally every 12 hrs Taking Dicyclomine HCl 20 MG Tablet 1 tablet Orally Three times a day Taking Pantoprazole Sodium 20 MG Tablet Delayed Release 1 tablet 1/2 to 1 hour before morning meal Orally Once a day Taking SEROquel 100 MG Tablet 1 tablet at bedtime Orally 50 MG IN THE AM , Notes to Pharmacist: PSYTaking EPINEPHrine 0.3 MG/0.3ML Solution Auto-injector 0.3 mg intramuscular for severe allergic reaction Injection One time Taking Sucralfate 1 GM Tablet 1 tablet on an empty stomach Orally Twice a day Taking Pantoprazole Sodium 40 MG Tablet Delayed Release 1 tablet 1/2 to 1 hour before morning meal Orally Once a day Taking Cholestyramine 4 GM/DOSE Powder 1 scoop Orally Once a day Not-TakingpredniSONE 20 MG Tablet 1 tablet Orally Once a day hydrOXYzine HCl 50 MG Tablet 1 tablet Orally every 6 hrs as needed , Notes to Pharmacist: PSYtraZODone HCl 50 MG Tablet 1 tablet at bedtime as needed Orally Once a day , Notes to Pharmacist: PSYtiZANidine HCl 2 MG Tablet 1 tablet at bedtime as needed Orally Once a day Divalproex Sodium 500 MG Tablet Delayed Release 1 tablet Orally Once a day , Notes to Pharmacist: PSYDivalproex Sodium ER 500 MG Tablet Extended Release 24 Hour 1 tablet Orally Once a day , Notes to Pharmacist: PSYPantoprazole Sodium 40 MG Tablet Delayed Release 1 tablet Orally Once a day Naltrexone HCl 50 MG Tablet 1 tablet Orally Once a day Folic Acid 1 MG Tablet 1 tablet Orally Once a day Bisacodyl EC 5 MG Tablet Delayed Release 1 tablet as needed Orally Once a day Vitamin B12 1000 MCG Tablet Extended Release 1 tablet Orally Once a day Vitamin D 25 MCG (1000 UT) Tablet 1 tablet Orally Once a day Meloxicam 15 MG Tablet 1 tablet Orally Once a day Meclizine HCl 25 MG Tablet 1 tablet as needed Orally DAILY Not-Taking predniSONE 20 MG Tablet 1 tablet Orally Once a day Not-Taking hydrOXYzine HCl 50 MG Tablet 1 tablet Orally every 6 hrs as needed , Notes to Pharmacist: PSYNot-Taking traZODone HCl 50 MG Tablet 1 tablet at bedtime as needed Orally Once a day , Notes to Pharmacist: PSYNot-Taking tiZANidine HCl 2 MG Tablet 1 tablet at bedtime as needed Orally Once a day Not-Taking Divalproex Sodium 500 MG Tablet Delayed Release 1 tablet Orally Once a day , Notes to Pharmacist: PSYNot-Taking Divalproex Sodium ER 500 MG Tablet Extended Release 24 Hour 1 tablet Orally Once a day , Notes to Pharmacist: PSYNot-Taking Pantoprazole Sodium 40 MG Tablet Delayed Release 1 tablet Orally Once a day Not-Taking Naltrexone HCl 50 MG Tablet 1 tablet Orally Once a day Not-Taking Folic Acid 1 MG Tablet 1 tablet Orally Once a day Not-Taking Bisacodyl EC 5 MG Tablet Delayed Release 1 tablet as needed Orally Once a day Not-Taking Vitamin B12 1000 MCG Tablet Extended Release 1 tablet Orally Once a day Not-Taking Vitamin D 25 MCG (1000 UT) Tablet 1 tablet Orally Once a day Not-Taking Meloxicam 15 MG Tablet 1 tablet Orally Once a day Not-Taking Meclizine HCl 25 MG Tablet 1 tablet as needed Orally DAILY DiscontinuedWellbutrin XL 150 MG Tablet Extended Release 24 Hour 1 tablet in the morning Orally Once a day Discontinued Wellbutrin XL 150 MG Tablet Extended Release 24 Hour 1 tablet in the morning Orally Once a day UnknownZolpidem Tartrate 5 MG Tablet 2 tablet at bedtime Orally Once a day , Notes to Pharmacist: PSYPrazosin HCl 2 MG Capsule 2 capsule at bedtime Orally Once a day , Notes to Pharmacist: Lb Zolpidem Tartrate 5 MG Tablet 2 tablet at bedtime Orally Once a day , Notes to Pharmacist: PSYUnknown Prazosin HCl 2 MG Capsule 2 capsule at bedtime Orally Once a day , Notes to Pharmacist: WILLIAM * Allergies:?Peanut (Diagnosti c): Allergyno[Allergies Verified] Objective: * Vitals:?Temp:97.2F, Oxygen s at %:98%, HR:76/min, BP:104/72mm Hg, Wt:205.9lbs, BMI:37.66Index, Ht: 5'2 . * Examination: ???General Examination: ?Psychiatry?she appears to be at her baseline.? She is making eye contact.? She is answering the questions appropriately..?GENERAL APPEARANCE:?Well developed, well nourished, in no acute distress.?MUSCULOSKELETAL:?normal.?EYES:?Pupils equal, round, reactive to light and accommodation, sclera non-icteric..?NECK/THYROID:?Neck supple, full range of motion, no cervical lymphadenopathy.?SKIN:?Warm and dry, no suspicious lesions.?HEART:?S1, S2 normal regular rate and rhythm no murmurs, rubs, gallops .?LUNGS:?clear anteriorly and posteriorly good air movement no wheezes, rales, rhonchi .?BREASTS:?__.?ABDOMEN:?, normal, bowel sounds present.?EXTREMITIES:?Normal.?NEUROLOGIC:?Nonfocal,? appropriate?motor strength normal upper and lower extremities, sensory exam intact..?FEMALE GENITOURINARY:?__.?MALE GENITOURINARY:?__.?Flotation Tender Helper? .? Assessment: * Assessment: 1.?Hospital discharge follow -up - Z09 (Primary)???2.?Acute cystitis with hematuria - N30.01???3.?Anxiety disorder, unspecified - F41.9??? Ms. Souza is a 38 year ol d lady with GERD, PTSD and major depressive disorder who was admitted to [facility] she is here today for post hospital discharge.? Follow-up Post hospital discharge 14 day follow-up.? Patient is in a good mood today.? She denies any increased anxiety or depression.? She was admitted to the hospital for overdose and suicidal ideation.? She she remained under psychiatric supervision they have discontinued Wellbutrin and started her on Lamictal 25 mg daily she is also on Seroquel 100 mg at night.? Currently she is doing well and is following up with her psychiatrist and counselor at [facility] psychiatric unit I reviewed all the discharge paperwork from [facility].? Medications were reviewed with the patient. Abdominal pain improved she was treated for acute cystitis in May 2024.? Currently no acute issues. Concussion patient reported 3 weeks ago during her hospitalization she banged her head into the wall.? It does not appear that any imaging was done as patient is neurologically intact.? She has no headache no change in motor strength.? No nausea or vomiting.? She denies any vision changes.? She does report at times she gets some ringing in the year.? She has history of hallucinations. Patient also needed a work note which was provided today. Plan: * Treatment: * Procedure Codes:?3074F SYST BP LT 130 MM [id number] DIAST BP < 80 MM [id number] [facility] 14 DAY DISCH * * Sign off status: Completed true * Provider:?Angelo Azar, Date:?06/21/2024 Generated for Des seo/Andre/eTsylwiasmitting on:?07/23/2024 02:29 PM EDT History and Physical Notes * HPI (History of Present Illness) Category Sub-Category Detail Notes Category Not es Internal Medicine Ms. Souza is a 38 year old lady with GERD, PTSD and major depressive disorder who was recently released from [facility] psychiatric unit on a 06/08/24. Patient was admitted for suicidal ideation and attempt. Patient apparently overdosed on Seroquel and citalopram. During her stay medications were changed. She was taken off of albuterol and was started on Lamictal 25 mg daily along with naltrexone. She currently has no complaints. She reports sometimes she gets a right-sided flank pain. She was also recently staying at [facility] for abdominal pain with a CT of the pelvis was done which was unremarkable she was treated for cystitis at that time. Patient also reported that during her stay at the psychiatric unit she had a concussion she developed that after she was banging her head against the wall. She is neurologically intact she currently has no headache no change in motor strength. No blurry vision. No nausea or vomiting. Patient is here today for post hospital discharge follow-up Examination Category Sub-Category Detail Notes Category Not es General Examination GENERAL APPEARANCE: Well dev eloped, well nourished, in no acute distress EYES: Pupils equal, round, reactive to light and accommodation, sclera non-icteric. NECK/THYROID: Neck supple, full ra nge of motion, no cervical lymphadenopathy HEART: S1, S2 normal regula r rate and rhythm no murmurs, rubs, gallops LUNGS: clear anteriorly and posteriorly good air movement no wheezes, rales, rhonchi ABDOMEN: , normal, bowel soun ds present NEUROLOGIC: Nonfocal, appropriat e motor strength normal upper and lower extremities, sensory exam intact. SKIN: Warm and dry, no veena picious lesions EXTREMITIES: Normal BREASTS: __ MUSCULOSKELETAL: normal MALE GENITOURINARY: __ FEMALE GENITOURINARY: __ Psychiatry she appears to be at her baseline. She is making eye contact. She is answering the questions appropriately. Flotation Tender Helper
--- NOTE | 2024-07-23 14:42 | MHC.CARE ---
[facility] calls regarding this patient. Reports that patient called the [facility] crisis team twice. Patient is reported to reside in [facility] but has been staying with her parents in [facility]. Reported SI, on and off to [facility] clinician, as well as feelings of hopelessness. Noted for several attempts, including via intentional OD. CHD reports patient's family did take her medication away. Patient reported to clinician that their meds weren't working. Ultimately did not want to come to the ED, wanted to go to work, apparently finances are part of patients stressors. Has hx of several admissions, the last of which was to [place] in May 2024.
[2024-07-23 15:10] LABS: MANUAL DIFF FLAG NO
[2024-07-23 15:13] LABS: Basophils Absolute Auto 0.1 X10*3/uL (0.0-0.2); Basophils Percent Auto 0.8 % (0-2); Eosinophils Absolute Auto 0.3 X10*3/uL (0.0-0.4); Eosinophils Percent Auto 4.2 % (0-4); Hematocrit 42.8 % (37.0-47.0); Hemoglobin 14.9 g/dl (12.0-16.0); Imm Gran Abs Auto 0.01 X10*3/uL (0.00-0.03); Imm Gran Pct Auto 0.2 % (0.0-0.4); Lymphocytes Absolute Auto 2.4 X10*3/uL (1.2-4.9); Lymphocytes Percent Auto 35.5 % (20-40); Mean Corpuscular HGB Conc 34.8 g/dl (31.0-35.0); Mean Corpuscular Hemoglobin 31.9 pg (27.0-33.0); Mean Corpuscular Volume 91.6 fL (80.0-98.0); Mean Platelet Volume 10.1 fL (9.4-12.3); Monocytes Absolute Auto 0.5 X10*3/uL (0.1-1.2); Monocytes Percent Auto 7.2 % (2-11); Neutrophils Absolute Auto 3.5 x10*3/uL (2.0-8.3); Neutrophils Percent Auto 52.1 % (45-73); Platelet Count 254 X10*3/uL (160-400); Red Blood Count 4.67 X10*6/uL (4.20-5.50); Red Cell Distribution Width 12.9 % (11.0-16.0); White Blood Count 6.7 X10*3/uL (4.8-10.8)
[2024-07-23 15:30] LABS: Acetaminophen LAB < 3 mcg/mL (<30); Salicylate < 5.0 mg/dL (15-30)
[2024-07-23 15:38] LABS: Appearance Urine Cloudy; Color Urine Yellow; Glucose Urine UA Negative (Negative); Leukocyte Esterase Urine Negative (Negative); Nitrite Urine Negative (Negative); Urine Blood Negative (Negative); Urine Ketones Negative (Negative); Urine Protein Negative (Neg-Trace)
[2024-07-23 15:50] LABS: Amphetamine Screen Urine Not Detected (Not Detect); Barbiturates, Urine Not Detected (Not Detect); Benzodiazepines Screen Urine Not Detected (Not Detect); Buprenorphine Scr Not Detected (Not Detect); Cannabinoid Screen Urine Not Detected (Not Detect); Cocaine Screen Urine Not Detected (Not Detect); Fentanyl, urine Not Detected (Not Detect); Methadone Screen, Urine Not Detected (Not Detect); Opiate Screen Urine Not Detected (Not Detect); Oxycodone Screen Urine Not Detected (Not Detect); Phencyclidine Screen Urine Not Detected (Not Detect)
[2024-07-23 15:54] LABS: Influenza A PCR NEGATIVE (Negative); Influenza B PCR NEGATIVE (Negative); Resp Syncy Virus RNA Qual PCR NEGATIVE (Negative); SARS COV2 PCR INHOUSE NEGATIVE (Negative)
--- NOTE | 2024-07-23 17:12 | PC.NURSE ---
med rec completed. pt states she is no longer taking wellbutrin. cross checked medications with phamracy fills. pt took her daily meds today, but not her PRNs. other andreea last taken yesterday,
[2024-07-23 17:27] LABS: Alanine Aminotransferase 43 U/L (0-31); Albumin Level 4.1 g/dL (3.5-5.0); Alkaline Phosphatase 92 U/L (39-117); Anion Gap 12 (12-20); Aspartate Amino Transferase 41 U/L (5-31); Bilirubin Total 0.4 mg/dL (0.0-1.0); Blood Urea Nitrogen 10 mg/dL (9-16); Calcium 9.2 mg/dL (8.4-10.2); Carbon Dioxide 22 mmol/L (22-29); Chloride 110 mmol/L (96-108); Creatinine Clr Calc Pharmacy 114.8; Estimated Glomerular Filt Rate > 60; Ethanol < 10 mg/dL; Glucose Random 86 mg/dL (60-115); HCG Quantitative < 2 mIU/mL; Potassium 4.3 mmol/L (3.3-5.1); Sodium 140 mmol/L (135-145); Total Protein 6.7 g/dL (6.5-8.0)
--- NOTE | 2024-07-23 18:51 | PHA.MEDREC ---
Pharmacy Consult ? Medication Reconciliation Pharmacy has completed the medication reconciliation. Med rec complete using claim history and patient interview. RN had originally completed med rec but found that dose of 40 mg citalopram was incorrect and should have been 15 mg as per claims and patient confirmation. Also found that haloperidol dose 2 mg TID was entered instead of BID also supported by claims and patient confirmation. Claims show seroquel 50 mg at bedtime and may repeat once as needed but patient reports taking both 50 mg tablets as one dose at bedtime. Provider notified of discrepancies.
[2024-07-23] MEDS: HaloperidoL 1 MG TABLET 2 MG PO (19:17)
[2024-07-23 20:02] VITALS: BP 113/73; PULSE 76; RESP 18; TEMP 36.1; O2SAT 98
[2024-07-23 20:17] VITALS: RESP 16
[2024-07-23] MEDS: QUEtiapine Fumarate 100 MG TABLET PO (21:27)
[2024-07-23] MEDS: lamoTRIgine 25 MG TABLET 75 MG PO (21:27)
[2024-07-23] MEDS: Pramipexole Di-HCL 0.25 MG TABLET 0.5 MG PO (21:27)
[2024-07-23] MEDS: Dicyclomine HCl 10 MG CAPSULE 20 MG PO (21:27)
[2024-07-24 05:59] VITALS: BP 111/59; PULSE 60; RESP 15; TEMP 36.6; O2SAT 98
[2024-07-24] MEDS: Dicyclomine HCl 10 MG CAPSULE 20 MG PO (08:03)
[2024-07-24] MEDS: Amoxicillin 500 MG CAPSULE PO (08:03)
[2024-07-24] MEDS: Escitalopram Oxalate 5 MG TABLET 7.5 MG PO (08:03)
[2024-07-24] MEDS: Acetaminophen 325 MG TABLET 975 MG PO (08:03)
[2024-07-24] MEDS: Ibuprofen 400 MG TABLET PO (08:03)
--- NOTE | 2024-07-24 08:49 | MHC.CARE ---
Pt accepted to [facility] for 12pm [address] [facility] [place] [address] Inman Dx PTSD and MDD
--- NOTE | 2024-07-24 09:24 | MHC.EDTECH ---
[facility] AUTH #[id number]. SPOKE TO TYRESE FROM [facility].
[2024-07-24 10:45] VITALS: BP 109/61; PULSE 72; RESP 16; TEMP 36.6; O2SAT 100
[2024-07-24 10:51] VITALS: BP 109/61; PULSE 72; RESP 16; TEMP 36.6; O2SAT 100
== END 2024-07-24 14:12 ==
PROVIDERS: Registered Nurse Emergency; Emergency Provider Emergency Medicine; PCP Hospitalist
DX: R45.851 Suicidal ideations (principal); H66.92 Otitis media, unspecified, left ear; F33.1 Major depressive disorder, recurrent, moderate; F43.10 Post-traumatic stress disorder, unspecified; R10.2 Pelvic and perineal pain; Z79.899 Other long term (current) drug therapy; Z03.818 Encounter for observation for suspected exposure to other biological agents ruled out; Z51.81 Encounter for therapeutic drug level monitoring
CPT/HCPCS: 0241U; 80053; 80143; 80179; 80307; 81003; 84702; 85025; 99285; S9485

== ENCOUNTER 2024-12-01 17:26 | Emergency (ER) | payer OTHER, SELFPAY ==
[2024-12-01 17:30] VITALS: BP 159/81; PULSE 104; RESP 18; TEMP 36.4; O2SAT 99; BMI 33.4
--- OUTSIDE RECORDS SUMMARY | 2024-12-01 17:40 | XMS_ITS | Patient Health Record ---
Author Organization [facility] Address [address] [place] [address] [address] [place] [address] Care Team Providers Care Web Content Producer Name Role Phone FINA BRISCOE Primary Care Provider Angelo Azar Unavailable [phone] Aries Mackay Unavailable [phone] Allergies Allergen (clinical drug ingredient) Drug/Non Drug Allergy documented on EMR Reaction Allergy Type Onset Date Status peanut allergenic extract Peanut (Diagnostic) Unknown Drug Allergy Active Results Component Value Reference Range Notes TRICHOMONAS, URINE Reviewed date:11/06/2024 10:34:04 AM Interpretation: Performing Lab: Notes/Report: Trichomonas, Urine None Seen None Seen CHLAMYDIA TRACHOMATIS AND NE ISSERIA GONORRHOEAE MOLECULAR STUDY Reviewed date:11/06/2024 10:33:33 AM Interpretation: Performing Lab: Notes/Report: Neisseria gonorrhoeae PCR Negative Negative Chlamydia trachomatis PCR Negative Negative URINALYSIS WITH REFLEX MICRO SCOPIC Reviewed date:11/06/2024 10:33:54 AM Interpretation: Performing Lab: Notes/Report: Specific [place] Urine 1.023 1.003-1.030 pH, Urine 5.5 5.0-8.0 pH Leukocytes, Urine Small Negative Nitrite, Urine Negative Negative Protein, Urine Negative <=Trace mg/dL Glucose, Urine Negative Negative mg/dL Ketones, Urine 15 Negative mg/dL Urobilinogen, Urine 1.0 0.2-1.0 mg/dL Bilirubin, Urine Negative Negative Blood, Urine Negative Negative RBC, Urine 1.0 0-4 /HPF WBC, Urine 5.2 0-4 /HPF Squamous Epithelial, Urine >100 0-60 /LPF Bacteria, Urine Few Negative /HPF Hyaline Casts, Urine 0.0 0-3 /LPF Sedimentation Rate-Westergre n-[id number] Reviewed date:04/02/2024 05:29:02 PM Interpretation: Performing Lab:[facility] [address] [place] [address], Phone - [phone], Director Taisha Ndiaye Notes/Report: Sedimentation Rate-Westergren 6 0-32 mm/hr C-Reactive Protein, Quant-00 6627 Reviewed date:04/02/2024 05:29:54 PM Interpretation: Performing Lab:[facility] [place], [address] [place] [address], Phone - [phone], Director Taisha Ndiaye Notes/Report: C-Reactive Protein, Quant 1 0-10 mg/L Lactose Tolerance Test-[id number] 0 Reviewed date:04/02/2024 05:28:18 PM Interpretation: Performing Lab:[facility] [address] [place] [address], Phone - [phone], - Zelda Notes/Report: Glucose 1 79 Glucose 2 120 [...] normal insulin response to the carbohydrate load. Celiac Disease Panel-[id number] Reviewed date:04/02/2024 05:26:59 PM Interpretation: Performing Lab:[facility] [address] [place] [address], Phone - [phone], - Zelda Notes/Report: Endomysial Antibody IgA Negative Negative t-Transglutaminase (tTG) IgA <2 0-3 U/mL Negative 0 - 3 Weak Positive 4 - 10 Positive >10 . Tissue Transglutaminase (tTG) has been identified as the endomysial antigen. Studies have demonstr- ated that endomysial IgA antibodies have over 99% specificity for gluten sensitive enteropathy. Immunoglobulin A, Qn, Serum 235 87-352 mg/dL Calprotectin, Fecal-[id number] Reviewed date:04/09/2024 12:38:07 PM Interpretation: Performing [facility], Phone - [phone], Director Taisha Craft Notes/Report: Clinical Information:SRC:ST Calprotectin, Fecal 61 0-120 ug/g Concentration Interpretation Follow-Up < 5 - 50 ug/g Normal None >50 -120 ug/g Borderline Re-evaluate in 4-6 weeks >120 ug/g Abnormal Repeat as clinically indicated Lactoferrin, Fecal, Quant.-1 79084 Reviewed date:04/09/2024 12:42:58 PM Interpretation: Performing Lab:[facility], [address] [place] [address], Phone - [phone], Director - Luana Notes/Report: Clinical Information:SRC:ST Lactoferrin, [...] syndrome (IBS). White Blood Cells (WBC), Sto ol-239206 Reviewed date:04/09/2024 12:36:20 PM Interpretation: Performing Lab:[facility], [address] [place] [address], Phone - [phone], Director - Luana Notes/Report: Clinical Information:SRC:ST Clinical Information:SRC:ST White Blood Cells (WBC), Stool Final report None Seen Result 1 No white blood cells seen. TSH-[id number] Reviewed date:01/01/2024 07:51:46 AM Interpretation: Performing Lab:[facility], [address] [place] [address], Phone - [phone], Director - Zelda Notes/Report: TSH 0.909 0.450-4.500 uIU/mL Lipid Panel-[id number] Reviewed date:01/01/2024 07:51:40 AM Interpretation: Performing Lab:[facility], [address] [place] [address], Phone - [phone], Director - eZlda Notes/Report: Cholesterol, Total 156 100-199 mg/dL Triglycerides 120 0-149 mg/dL HDL Cholesterol 48 >39 mg/dL VLDL Cholesterol Willy 21 5-40 mg/dL LDL Chol Calc ([facility]) 87 0-99 mg/dL Comp. Metabolic Panel (14)-3 Reviewed date:01/05/2024 01:28:15 PM Interpretation: Performing Lab:[facility], [address], [place], Phone - [phone], Director - Zelda Notes/Report: Glucose 90 70-99 mg/dL BUN 10 [...] 0-40 IU/L ALT (SGPT) 72 0-32 IU/L Reason For Referral Reason Evaluation and manag ement Diagnosis 1 Unspecified hearing loss, unspecified ear (H91.90) Referral Organization [facility] Referring Provider First Name BRISCOE Referring Provider Last Name [facility] Referring Provider Speciality Internal edicine Referred Provider Specialty Audiologists General Notes Referral sent to [facility] - Office will call patient for scheduling.Shiva Latraya 12/24/2023 12:21:03 PM > Referral Priority Routine Reason Evaluation and manag ement Diagnosis 1 Cervicalgia (M54.2) Referral Organization [facility] Referring Provider First Name [facility] Referring Provider Last Name [facility] Referring Provider Speciality Internal edicine Referred Provider Specialty Physical The rapist General Notes Referral sent to [facility] Physical Therapy in [place] - Office will call patient for scheduling.Shiva Latraya 12/24/2023 12:25:35 PM > Referral Priority Routine Reason Evaluation and manag ement Diagnosis 1 Major depressive dis order, recurrent, moderate (F33.1) Diagnosis 2 Generalized anxiety disorder (F41.1) Diagnosis 3 Post-traumatic stres s disorder, unspecified (F43.10) Diagnosis 4 Sleep terrors [night terrors] (F51.4) Diagnosis 5 Insomnia, unspecifie d (G47.00) Referral Organization [facility] Referring Provider First Name RACHNA Referring Provider Last Name FINA Referring Provider Speciality Internal M edicine Referred Provider Specialty Psychiatry General Notes Referral sent to Dr. Pacheco - Office will call patient for scheduling., Gwendolyn Shannon 01/20/2024 03:44:10 PM > Referral Priority Routine Reason please evaluate and treat Diagnosis 1 Neck pain (M54.2) Referral Organization [facility] Referring Provider First Name Aries Referring Provider Last Name Thompson Referred Provider Specialty Orthopedic S urgery General Notes Referral faxed to [facility]. Please contact the patient to schedule.Mendoza Kayla 03/24/2024 12:46:39 PM > Referral Priority Routine Reason Diarrhea flare up-po sitive Lactoferrin, negative Calprotectin, negative WBC Diagnosis 1 Abnormal immunologic al findings in specimens from other organs, systems and tissues (R89.4) Referral Organization [facility] Referring Provider First Name Aries Referring Provider Last Name Thompson Referred Provider Specialty Gastroentero logy General Notes Referral faxed to [facility]. Please contact the patient to schedule.Mendoza Kayla 04/20/2024 05:47:42 PM > Referral Priority Urgent Reason Needs help with medi cation adherence Diagnosis 1 Patient's other nonc ompliance with medication regimen for other reason (Z91.148) Referral Organization [facility] Referring Provider First Name Aries Referring Provider Last Name Thompson Referred Provider Specialty Registered N lauren General Notes Referral faxed., Linda Moulton 07/29/2024 06:36:01 AM > Referral Priority Routine Medications Medication SIG (Take, Route, Frequency, Duration) Notes Start Date End Date Status Divalproex Sodium ER 500 MG 1 tablet Orally Once a day PSY Not-Taking Pantoprazole Sodium 40 MG 1 tablet Orall y Once a day Not-Taking Naltrexone HCl 50 MG 1 tablet Orally Onc e a day Not-Taking Folic Acid 1 MG 1 tablet Orally Once a day Not-Taking Bisacodyl EC 5 MG 1 tablet as needed Orally Once a day Not-Taking Vitamin B12 1000 MCG 1 tablet Orally Onc e a day; Duration: 30 day(s) 01/29/2022 Not-Taking Vitamin D 25 MCG (1000 UT) 1 tablet Orally Once a day Not-Taking Meloxicam 15 MG 1 tablet Orally Once a day; Duration: 30 days 08/27/2022 Not-Takin g LaMICtal 25 MG 1 tablet Orally Not-Taking Meclizine HCl 25 MG 1 tablet as needed Orally DAILY; Duration: 10 days 09/11/2022 Not-Taking Cefpodoxime Proxetil 200 MG 1 tablet with food Orally every 12 hrs Not-Taking Zolpidem Tartrate 5 MG 2 tablet at bedti me Orally Once a day PSY Unknown Dicyclomine HCl 20 MG 1 tablet Orally Th ree times a day; Duration: 30 days 03/08/2024 Not-Taking Pantoprazole Sodium 20 MG 1 tablet 1/2 t o 1 hour before morning meal Orally Once a day; Duration: 30 days 03/08/2024 Not-Taking SEROquel 300 MG 1 tablet at bedtime, 50 mg as needed TID Orally PSY Active EPINEPHrine 0.3 MG/0.3ML 0.3 mg intramus cular for severe allergic reaction Injection One time; Duration: 30 days 11/26/2023 Active Sucralfate 1 GM 1 tablet on an empty stomach Orally Twice a day; Duration: 15 03/08/2024 Not-Takin g Pantoprazole Sodium 40 MG 1 tablet 1/2 t o 1 hour before morning meal Orally Once a day; Duration: 30 days Not-Taking Cholestyramine 4 GM/DOSE 1 scoop Orally Once a day; Duration: 30 days Not-Takin predniSONE 20 MG 1 tablet Orally Once a day; Duration: 7 days 03/16/2024 Not-Taking hydrOXYzine HCl 50 MG 1 tablet Orally ev davon 6 hrs as needed PSY Not-Taking traZODone HCl 50 MG 1 tablet at bedtime as needed Orally Once a day PSY Not-Taking tiZANidine HCl 2 MG 1 tablet at bedtime as needed Orally Once a day; Duration: 30 days Not-Takin g Divalproex Sodium 500 MG 1 tablet Orally Once a day PSY Not-Taking Prazosin HCl 2 MG 2 capsule at bedtime Orally Once a day PSY Unknown Immunizations [...] Notes Problem Obesity due to excess calories (909993020) Other obesity due to excess calories (E66.09) Active confirmed Problem Mixed hyperlipidemia (993726620) Mixed hyperlipidemia (E78.2) Active confirmed Problem Moderate recurrent major depression (59401984) Major depressive disorder, recurrent, moderate (F33.1) Active confirmed Problem Generalized anxiety disorder (49414071) Generalized anxiety disorder (F41.1) Active confirmed Problem Anxiety disorder (932336514) Anxiety disorder, unspecified (F41.9) Active confirmed Problem Post-traumatic stress disorder (94958626) Post-traumatic stress disorder, unspecified (F43.10) Active confirmed Problem Sleep dysfunction with arousal disturbance (204718522) Sleep terrors [night terrors] (F51.4) Active confirmed Problem Insomnia (947831831) Insomnia, unspecified (G47.00) Active confirmed Problem Carpal tunnel syndrome (70923302) Carpal tunnel syndrome, right upper limb (G56.01) Active confirmed Problem Hearing loss (40468918) Unspecified hearing loss, unspecified ear (H91.90) Active confirmed Problem Irritable bowel syndrome with diarrhea (094934822) Irritable bowel syndrome with diarrhea (K58.0) Active confirmed Problem Abnormal immunology finding (988588065) Abnormal immunological findings in specimens from other organs, systems and tissues (R89.4) Active confirmed Problem Suicide attempt (50529811) Suicide attempt (T14.91) Active confirmed Problem History of bariatric surgical procedure (870460416) Bariatric surgery status (Z98.84) Active confirmed Problem Amnesia (08680575) Complaints of memory disturbance (R41.3) Active confirmed Problem Gastroesophageal reflux disease without esophagitis (490953074) Gastroesophageal reflux disease without esophagitis (K21.9) Active confirmed Problem Chronic sinusitis (12863500) Sinusitis, unspecified chronicity, unspecified location (J32.9) Active confirmed Problem Anxiety state (404586423) Anxiety state, unspecified (F41.1) Active confirmed Problem Neck pain (74676910) Neck pain (M54.2) Active confirmed Vital Signs Heart Rate 91 /min 11/18/2024 Temperature 95.9 degrees Fahrenheit 11/18/2024 Oximetry 100 % 11/18/2024 Blood pressure diastolic 70 mm Hg 11/18/2024 Height 5'2'' in 11/18/2024 Blood pressure systolic 120 mm Hg 11/18/2024 Weight 208.3 lbs 11/18/2024 BMI 38.09 kg/m2 11/18/2024 Encounters Encounter Location Date Provider Diagnosis [address] [address] 12/22/2023 BRISCOE GUL Myalgia of auxiliary muscles, head and neck M79.12 ; Dry mouth, unspecified R68.2 ; Major depressive disorder, recurrent, moderate F33.1 ; Other obesity due to excess calories E66.09 ; Dietary counseling and surveillance Z71.3 ; Bariatric surgery status Z98.84 and Unspecified hearing loss, unspecified ear H91.[address] [address] 03/08/2024 Aries Mackay Irritable bowel synd dorothy with diarrhea K58.0 ; Epigastric pain R10.13 and Neck pain M54.[address] [address] 03/16/2024 Aries Mackay Radial styloid tenosynovitis [de Quervain] M65.4 ; Carpal tunnel syndrome, right upper limb G56.01 ; Gastroesophageal reflux disease without esophagitis K21.9 and Diarrhea, unspecified R19.[address] [address] 04/29/[address] [place] [address] 05/04/2024 Aries Mackay Annual visit for [facility] adult medical examination without abnormal findings Z00.00 ; Complaints of memory disturbance R41.3 ; Gastroesophageal reflux disease without esophagitis K21.9 ; Diarrhea, unspecified R19.7 ; Major depressive disorder, recurrent, moderate F33.1 ; Generalized anxiety disorder F41.1 ; Other obesity due to excess calories E66.09 and Encounter for screening for cardiovascular disorders Z13.[address] [place] [address] 05/18/2024 Ghsharona Mackay Abdominal pain in fe male R10.[address] [place] [address] 05/19/2024 Ghsharona Merrillum Acute cystitis with hematuria N30.[address] [place] [address] 06/21/2024 Aroosa Alam Acute cystitis with hematuria N30.01 ; Hospital discharge follow-up Z09 and Anxiety disorder, unspecified F41.[address] [place] [address] 08/02/[address] [place] [address] 08/05/[address] [place] [address] 11/18/2024 Aries Merrillum Major depressive disorder, recurrent, moderate F33.1 ; Hospital discharge follow-up Z09 ; Generalized anxiety disorder F41.1 ; Sleep terrors [night terrors] F51.4 ; Insomnia, unspecified G47.00 and Post-traumatic stress disorder, unspecified F43.[address] [place] [address] 12/07/[address] [place] [address] 12/09/2023 [facility] [address] [place] [address] 12/17/2023 [facility] [address] [place] [address] 01/05/2024 [facility] Elevation of levels of liver transaminase levels R74.01 [facility] [address] [place] [address] 01/05/2024 [facility] [address] [place] [address] 01/20/2024 [facility] [address] [place] [address] 01/20/2024 [facility] [address] [place] [address] 02/05/2024 [facility] [address] [place] [address] 04/09/2024 Aries Merrillum Abnormal immunologic al findings in specimens from other organs, systems and tissues R89.4 [facility] [address] [place] [address] 05/16/2024 [facility] [address] [place] [address] 09/16/2024 [facility] [address] [place] [address] 10/20/2024 [facility] [address] [place] [address] 10/25/2024 [facility] [address] [place] [address] 11/25/2024 [facility] [address] [place] [address] 04/09/2024 [facility] [address] [place] [address] 04/09/2024 [facility] [address] [place] [address] 05/25/2024 [facility] [address] [place] [address] 05/25/2024 [facility] [address] [place] [address] 05/25/2024 [facility] [address] [place] [address] 06/07/2024 [facility] [address] [place] [address] 06/13/2024 [facility] [address] [place] [address] 06/19/2024 [facility] [address] [place] [address] 06/19/2024 [facility] [address] [place] [address] 06/20/[address] [place] [address] 06/21/[address] [place] [address] 08/18/2024 [facility] Assessments Encounter Date Diagnosis (ICD Code) Assessment Notes Treatment Notes Treatment Clinical Notes Section Notes 11/18/2024 Hospital discharge follow-up (ICD-10 - Z09) Ms. Moreno is a 39 year old lady with GERD, PTSD and major depressive disorder With multiple suicidal attempts with the latest on November 07, She is here for her recent admission at [facility] After overdosing on Seroquel and Haldol. Plan as follows MDD/TREY/sleep better/insomnia/o verdose. She was treated at the hospital until hemodynamically stable given QT prolongation. However she was admitted after to inpatient psychiatry, which she was resumed back on Seroquel, we do not have the records from the psychiatry unit however will obtain it for review. She states that they offered her to go back on citalopram and Lamictal but she decided not to. She will be joining [facility] program at [facility] on Thursday, November 21 and that she will be seeing her psychiatrist on December 01. I have advised patient that for any suicidal ideation or attempt she can call crisis immediately for help. She voices understanding Recent hospital admission has been reviewed with the patient and medication list reconciled General concerns have been discussed I have rendered the services for this patient under direct supervision of Dr. Stephens, who did not see the patient but was available upon request 06/21/2024 Acute cystitis with hematuria (ICD-10 - N30.01) Ms. Moreno is a 38 year old lady with GERD, PTSD and major depressive disorder who was admitted to [facility] psychiatric unit she is here today for [...] up with her psychiatrist and counselor at [facility] psychiatric unit I reviewed all the discharge paperwork from [facility]. Medications were reviewed with the patient. Abdominal [...] major depressive disorder who was admitted to [facility] she is here today for post hospital [...] up with her psychiatrist and counselor at [facility] psychiatric unit I reviewed all the discharge paperwork from [facility]. Medications were reviewed with the patient. Abdominal [...] a work note which was provided today. 11/18/2024 Major depressive disorder, recurrent, moderate (ICD-10 - F33.1) Ms. Moreno is a 39 year old lady with GERD, PTSD and major depressive disorder With multiple suicidal attempts with the latest on November 07, She is here for her recent admission at [facility] After overdosing on Seroquel and Haldol. Plan as follows MDD/TREY/sleep better/insomnia/o verdose. She was treated at the hospital until hemodynamically stable given QT prolongation. However she was admitted after to inpatient psychiatry, which she was resumed back on Seroquel, we do not have the records from the psychiatry unit however will obtain it for review. She states that they offered her to go back on citalopram and Lamictal but she decided not to. She will be joining [facility] program at [facility] on Thursday, November 21 and that she will be seeing her psychiatrist on December 01. I have advised patient that for any suicidal ideation or attempt she can call crisis immediately for help. She voices understanding Recent hospital admission has been reviewed with the patient and medication list reconciled General concerns have been discussed I have rendered the services for this patient under direct supervision of Dr. Stephens, who did not see the patient but was available upon request 05/04/2024 Annual visit for general adult medical [...] evaluation Breast and pelvic exam she is [id number] she follows with [facility] at [facility]. They have ordered mammogram She is up-to-date on vaccinations and specific age screenings General concerns have been discussed Screening blood work before next appointment I have rendered the services for this patient under direct supervision of Dr. Stephens, who did not see the patient but was available upon request 05/19/2024 Acute cystitis with hematuria (ICD-10 - N30.01) Ms. Moreno is a 38 year old lady with GERD, PTSD and major depressive disorder here for [facility] ER follow-up. Patient was diagnosed with acute [...] this patient under direct supervision of Dr. Stephens, who did not see the patient but [...] this patient under direct supervision of Dr. Stephens, who did not see the patient but [...] therapy and she can use Tylenol arthritis [id number]-wze-glxclmb. Fogginess and dry mouth. Secondary to polypharmacy. Seroquel and trazodone can give her fogginess and hydroxyzine will give her dry mouth along with tizanidine. Hearing loss. Referral to computator Obesity. She is status post bariatric surgery. [...] this patient under direct supervision of Dr. Stephens, who did not see the patient but [...] this patient under direct supervision of Dr. Stephens, who did not see the patient but [...] therapy and she can use Tylenol arthritis ffwj-edq-dvqdgvw. Fogginess and dry mouth. Secondary to polypharmacy. Seroquel and trazodone can give her fogginess and hydroxyzine will give her dry mouth along with tizanidine. Hearing loss. Referral to computator Obesity. She is status post bariatric surgery. Encouraged to lose weight. MDD/PTSD/TREY. She is stable on current regimen. 03/16/2024 Carpal tunnel syndrome, right upper limb [...] this patient under direct supervision of Dr. Stephens, who did not see the patient but [...] this patient under direct supervision of Dr. Stephens, who did not see the patient but was available upon request 04/09/2024 Abnormal immunological findings in specimens from other organs, systems and tissues (ICD-10 - R89.4) 05/04/2024 Complaints of memory disturbance (ICD-10 - [...] evaluation Breast and pelvic exam she is oh-vx-hzgfafs she follows with [facility] CL[facility] at [facility]. They have ordered mammogram She is up-to-date on vaccinations and specific age screenings General concerns have been discussed Screening blood work before next appointment I have rendered the services for this patient under direct supervision of Dr. Stephesn, who did not see the patient but [...] evaluation Breast and pelvic exam she is nf-rl-ugffwet she follows with [facility] R[facility] CLERK at [facility]. They have ordered mammogram She is up-to-date on vaccinations and specific age screenings General concerns have been discussed Screening blood work before next appointment I have rendered the services for this patient under direct supervision of Dr. Stephens, who did not see the patient but was available upon request 03/08/2024 Neck pain (ICD-10 - M54.2) Ms. [...] this patient under direct supervision of Dr. Stephens, who did not see the patient but [...] therapy and she can use Tylenol arthritis iecu-ool-xqxscny. Fogginess and dry mouth. Secondary to polypharmacy. Seroquel and trazodone can give her fogginess and hydroxyzine will give her dry mouth along with tizanidine. Hearing loss. Referral to computator Obesity. She is status post bariatric surgery. Encouraged to lose weight. MDD/PTSD/TREY. She is stable on current regimen. 06/21/2024 Anxiety disorder, unspecified (ICD-10 - F41.9) Ms. Moreno is a 38 year old lady with GERD, PTSD and major depressive disorder who was admitted to [facility] [facility] psychiatric unit she is here today for [...] up with her psychiatrist and counselor at [facility] psychiatric unit I reviewed all the discharge paperwork from [facility]. Medications were reviewed with the patient. Abdominal [...] a work note which was provided today. 11/18/2024 Generalized anxiety disorder (ICD-10 - F41.1) Ms. Moreno is a 39 year old lady with GERD, PTSD and major depressive disorder With multiple suicidal attempts with the latest on November 07, She is here for her recent admission at [facility] After overdosing on Seroquel and Haldol. Plan as follows MDD/TREY/sleep better/insomnia/o verdose. She was treated at the hospital until hemodynamically stable given QT prolongation. However she was admitted after to inpatient psychiatry, which she was resumed back on Seroquel, we do not have the records from the psychiatry unit however will obtain it for review. She states that they offered her to go back on citalopram and Lamictal but she decided not to. She will be joining [facility] program at [facility] on Thursday, November 21 and that she will be seeing her psychiatrist on December 01. I have advised patient that for any suicidal ideation or attempt she can call crisis immediately for help. She voices understanding Recent hospital admission has been reviewed with the patient and medication list reconciled General concerns have been discussed I have rendered the services for this patient under direct supervision of Dr. Stephens, who did not see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
--- OUTSIDE RECORDS SUMMARY | 2024-12-01 17:40 | XMS_ITS | Clinical Summary ---
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 omeprazole OTC (PriLOSEC OTC) 20 mg EC tablet Take 20 mg by mouth once a day. Active melatonin 3 mg tablet Take 5 mg by mouth nightly. Active acetaminophen (TYLENOL) 325 mg tablet Take 650 mg by mouth every 6 hours as needed for pain. Active camphor-menthoL (SARNA) lotion Apply topically to the affected area 2 times a day as needed for itching. 222 mL 4 Active ketoconazole (NIZORAL) 2% cream Apply topically to the affected area every 24 hours as needed for itching, irritation or rash. 15 g 4 Active FLUoxetine (PROzac) 20 mg capsule Take 3 capsules (60 mg total) by mouth once a day. 30 capsule 4 Active hydrOXYzine HCL (ATARAX) 50 mg tablet Take 1 tablet (50 mg total) by mouth 3 times a day as needed for anxiety. 90 tablet 4 Active QUEtiapine (SEROquel) 50 mg tablet Take 1 tablet (50 mg total) by mouth 2 times a day as needed (PRN for anxiety, agitation). 10 tablet 4 Active buPROPion XL (WELLBUTRIN XL) 150 mg tablet Take 1 tablet (150 mg total) by mouth once a day. 30 tablet 4 Active QUEtiapine (SEROquel) 100 mg tablet Take 1 tablet (100 mg total) by mouth nightly. 30 tablet 4 Active Active Problems Problem Noted Date Diagnosed Date Depression 08/04/2023 PTSD (post-traumatic stress disorder) 07/30/2023 Assessment & Plan (07/30/2023 5:14 PM EDT): The patient has been withdrawn, anxious since admission, when asked for a current motive for self-harm, she reported she 'had been through a lot' but was not comfortable elaborating further. GERD (gastroesophageal reflux disease) Assessment & Plan (08/03/2023 1:25 PM EDT): Home Medication: Omeprazole 20 mg daily. Patient has a history of GERD. She said she was recently started back on her medication. Her inpatient facility was called and verified she is on omeprazole daily. She is NPO after ingesting a cleaning substance (see ingestion plan). -Omeprazole non-formulary. -Pantoprazole 40 mg daily while admitted . Assessment & Plan (07/29/2023 12:34 AM EDT): Home Medication: Omeprazole 20 mg daily. Patient has a history of GERD. She said she was recently started back on her medication. Her inpatient facility was called and verified she is on omeprazole daily. She is NPO after ingesting a cleaning substance (see ingestion plan). -Omeprazole non-formulary. -Protonix 40 mg IV daily while inpatient. History of hypertension 07/29/2023 Assessment & Plan (07/29/2023 9:48 AM EDT): Patient has a history of hypertension. Not on home medications. BP 101/65 currently. -Monitor BP Assessment & Plan (07/29/2023 12:54 AM EDT): Patient has a history of hypertension. Not on home medications. BP 101/65 currently. -Monitor BP Anxiety and depression 07/28/2023 Assessment & Plan (08/03/2023 1:25 PM EDT): Home Medications: Jameson 300 mg twice daily. Ativan 0.5 mg twice daily PRN, Vistaril 50 mg PRN Patient has a history of anxiety and depression. She was recently at [facility] for an intentional OD on her prior medications. She was previously on Seroquel, Haldol Venlafaxine. Per the patient, they discontinued these medications while she was inpatient due to her intentional OD. Then discharged her to an [facility] (inpatient psychiatric facility). The patient reported that she has continuously felt very depressed while at this facility, and that this led to suicidal thoughts and her attempted overdose and toxic ingestion. -Start Prozac 10mg PO qAM -Start Seroquel 50mg BID PRN for anxiety, agitation -Continue Hydroxyzine 10 mg -Hold Jameson, Ativan -See intentional OD section -Pending vitamin D level -Patient requesting placement at inpatient psychiatric facility other than [facility] -Psychiatry, Social work following Assessment & Plan (07/29/2023 12:50 AM EDT): Home Medications: Jameson 300 mg twice daily. Ativan 0.5 mg twice daily, Hydroxyzine 10 mg PRN Patient has a history of anxiety and depression. She was recently at [facility] for an intentional OD on her prior medications. She was previously on Seroquel 50 mg in the morning, 100 mg nightly. As well as, Haldol 5 mg daily & venlafaxine 150 mg daily. Per the patient, they discontinued Seroquel, Haldol and venlafaxine while she was inpatient due to an intentional OD on those medications. Then discharged her to an inpatient psych facility in [facility]. I contacted this facility and confirmed she was only taking Jameson 300 mg twice daily while she was there. See intentional OD section. She also intentionally, overtook her Jameson, Ativan, and Hydroxyzine while inpatient. She is unable to identify a trigger or why she felt this way. She says she has been feeling this way for a while. -Hold home Jameson 300 mg twice daily. -Hold home hydroxyzine 10 mg -Ativan 0.5 mg IV PRN q 12 hours for anxiety while inpatient. -See intentional OD section HTN (hypertension) 01/06/2021 Mixed hyperlipidemia 01/01/2018 Assessment & Plan (07/29/2023 4:23 PM EDT): Appears patient was on Zetia in the past. Patient denies taking this. It also is not on the list of medications she was taking at her inpatient psych facility. TG 102 this adm. Assessment & Plan (07/29/2023 12:37 AM EDT): Appears patient was on Zetia in the past. Patient denies taking this. It also is not on the list of medications she was taking at her inpatient psych facility -Check a lipid panel Biliary colic 2015 Resolved Problems Problem Noted Date Diagnosed Date Resolved Date Transaminitis 07/29/2023 08/04/2023 Assessment & Plan (07/29/2023 4:23 PM EDT): AST 42, ALT 52. She denies alcohol use the past month. Her acetaminophen level was less than 10.0. Repeat LFTs stable. Assessment & Plan (07/29/2023 12:33 AM EDT): AST 42, ALT 52. She denies alcohol use the past month. Her acetaminophen level was less than 10.0. -Check LFTs in the morning Overdose of medication 07/28/202308/03 Assessment & Plan (08/01/2023 8:16 AM EDT): Patient presents from inpatient psych facility in [place]. For which she has been admitted at for two weeks. Prior to this she was [facility] for a suicide attempt as well. The morning prior to admission, she drank 2 gulps of Impact Radiusx TB disinfectant core cleaner. She then returned it to the staff. While there, she had 2 episodes of vomiting, has not been able to tolerate PO. She also reported that she took 4-5 pills of lithium, ativan, and hydroxyzine each also in a suicide attempt. Admitting team called facility who confirmed she was on Jameson 300 mg twice daily, Ativan 0.5 mg PRN and Hydroxyzine 10 mg PRN, unclear how she obtained extra medication. Complained of throat pain and L sided abdominal pain on presentation. Denied fever or chills. Denied bloody BM. Denied hemoptysis. EKG showed NSR. QTC 405. Labs were remarkable for elevated LFTs, Lipase was 60. Acetaminophen level was <10.0. Jameson level was 0.2. CXR negative for acute findings. On initial exam, no erythema or swelling of mouth/tongue. No buchanan visible. No signs of respiratory distress on exam. 07/28: Underwent EGD which showed mild LA Grade B esophagitis with no bleeding. Esophagus other thomas normal with no signs of significant caustic injury. Zargar score of 0. -Section 12; Constant observation. -Psychiatry following -Antidepressants/Anxiety medication per 'Anxiety and Depression' Assessment & Plan (07/29/2023 12:30 AM EDT): Patient presents from inpatient psych facility. For which she has been admitted at for two weeks. Prior to this she was [facility] for a suicide attempt as well. Per patient, she overdosed on her prior home medications : Seroquel, Haldol, Effexor. They discharged her off those medications. And per med list at [place] facility, she is currently just on Jameson 300 mg twice daily. Today, 07/28, around 11 AM, she states the cleaning crew at her facilty left behind a bottle of Virex TB disinfectant core cleaner. She saw it and she took two gulps of it. She then returned it to the staff. And later, around 4pm , she told them she drank some of it. She presents today, On S21 from [place]. While here, she had 2 episodes of vomiting, has not been able to tolerate PO. Complains of throat pain and L sided abdominal pain. EKG shows NSR. QTC 405. She also tells me on Thursday she took 4-5 pills of lithium, ativan, and hydroxyzine each also in a suicide attempt. I called her facility, they do confirm she is on Jameson 300 mg twice daily, Ativan 0.5 mg PRN and Hydroxyzine 10 mg PRN. It is unclear how she got hold of these medications.But she tells me she took 6 pills of each medication. She tells me she has had vomiting and diarrhea since of last week. Denies fever or chills. Denies bloody BM. Denies hemoptysis. In the ER, Toxicology and GI were reached out to. Toxicology recommended reaching out to GI and NPO status. GI agreed with endoscopy, likely day after tomorrow, supportive care. Nothing recommended for mild lipase and LFT abnormalities. Can try magic mouthwash for symptoms Labs were remarkable for elevated LFTs, Lipase was 60. Acetaminophen level was <10.0. Jameson level was 0.2. CXR negative for acute findings. Upon assessment, patient denies difficulty swallowing. She does state her throat is sore. He left upper abdomen is tender upon palpation. She said she moved her bowels at 4pm today and noticed no changes. She has positive bowel sounds. She denies nausea upon exam. Her throat was examined and no swelling or redness observed. Tongue is not swollen. No buchanan are visible upon exam. No signs of respiratory distress on exam: She is 98% on room air. She has nonlabored breathing. Bilateral clear breath sounds. -Section 12; Constant observation. -Consult psych when medically cleared. -NPO per Toxicology & GI. Follow up with GI in the morning. -NPO overnight. NS @ 100 ml/hr while NPO. -Hold home PO lithium 300 mg twice daily, hold PRN hydroxyzine PO 10 mg PRN : Consider restarting in morning. -Ativan 0.5 mg IV PRN q 12 hours as needed for anxiety. -If abdominal pain increases; consider abdominal imaging. Nausea & vomiting 07/28/2023 08/04/2023 Assessment & Plan (08/03/2023 1:25 PM EDT): Patent states she has had nausea, vomiting and diarrhea since last . She denies fever or chills. She does state the vomiting increased after ingesting the cleaning substance but diarrhea has resolved. She does have left upper abdominal pain on palpation. Abdomen is soft/non distended. She had a BM today which was normal. -IV ondansetron 4 mg q 8 hours for nausea. Assessment & Plan (07/29/2023 12:30 AM EDT): Patent states she has had nausea, vomiting and diarrhea since last . She denies fever or chills. She does state the vomiting increased after ingesting the cleaning substance but diarrhea has resolved. She does have left upper abdominal pain on palpation. Abdomen is soft/non distended. She had a BM today which was normal. -IV ondansetron 4 mg q 8 hours for nausea. Insomnia 01/01/2018 07/29/2023 Family History Medical History Relation Name Comments No Known Problems Brother No Known Problems Father No Known Problems Maternal Grandfather No Known Problems Maternal Grandmother No Known Problems Mother No Known Problems Paternal Grandfather No Known Problems Paternal Grandmother No Known Problems Sister Relation Name Status Comments Brother Father Maternal Grandfather Maternal Grandmother Mother Paternal Grandfather Paternal Grandmother Sister Social History Tobacco Use Types Packs/Day Years Used Date Smoking Tobacco: Never Passive Smoke Exposure: Never Smokeless Tobacco: Never Tobacco Cessation:Counseling Given: No Alcohol Use Standard Drinks/Week Comments Not Currently 0 (1 standard drink = 0.6 oz pure alcohol) Last drink per patient was beginning of June Comments No Sex and Gender Information Value Date Recorded Sex Assigned at Not on file Legal Sex Female Gender Identity Not on file Sexual Orientation Not on file Last Filed Vital Signs Vital Sign Reading Time Taken Comments Blood Pressure 117/76 08/17/2023 8:00 PM EDT Pulse 85 08/17/2023 8:00 PM EDT Temperature 36.6 C (97.9 F) 08/16/2023 10:00 AM EDT Respiratory Rate 18 08/17/2023 8:00 PM EDT Oxygen Saturation 97% 08/17/2023 8:00 PM EDT Inhaled Oxygen Concentration - - Weight 94.3 kg (208 lb) 08/04/2023 3:31 PM EDT Height 157.5 cm (5' 2 ) 08/04/2023 3:31 PM EDT Body Mass Index 38.04 08/04/2023 3:31 PM EDT Plan of Treatment Health Maintenance Due Date Last Done Comments Cervical Cancer Screening 1983 HIV Screening 1983 HPV and Pap Smear 1983 Hepatitis C Screening 1983 Pap Smear 1983 Varicella Vaccines (1 of 2 - 13+ 2-dose series) 10/09/1996 Hepatitis B Vaccines (3 of 3 - 19+ 3-dose series) 09/15/2017 04/17/2017, 03/17/2017 Mammogram 2023 COVID-19 Vaccine ( season) 2023 04/01/2023, 08/26/2020, 08/05/2020 Alcohol/Substance Use Screening 04/13/2024 Depression Screening and Follow-Up 04/13/2024 Social Drivers of Health Annual Screening 04/13/2024 Basic Metabolic Panel 08/02/2024 08/03/2023 , 07/29/2023, 07/28/2023, Additional history exists Influenza Vaccine (#1) 2024 04/01/2023, 2017 DTaP,Tdap,and Td Vaccines (3 - Td or Tdap) 04/03/2033 04/03/2023, 05/10/2009 RSV Vaccine (60+ years old and patients) (1 - 1-dose 75+ series) 10/09/2058 Pneumococcal Vaccine: Pediatric (0-5 Years) and At-Risk Patients (6-50 Years) Aged Out No longer eligible based on patient's age to complete this topic Procedures * Due to [place] [employer] law, this organization might not be sharing negative HIV tests. Procedure Name Priority Date/Time Associated Diagnosis Comments BASIC METABOLIC PANEL Routine 08/03/2023 7:22 AM EDT from Last 3 Months or Most Recently Relevant to Health Maintenance Results * Due to [facility] law, this organization might not be sharing negative HIV tests. * (ABNORMAL) Basic metabolic panel (08/03/2023 7:22 AM EDT) NA 139 135 - 145 mmol/L 08/03/2023 9:04 AM EDT [facility] K 3.4(L) 3.5 - 5.3 mmol/L 08/03/2023 9:04 AM EDT [facility] Cl 105 97 - 110 mmol/L 08/03/2023 9:04 AM EDT [facility] CO2 25 24 - 32 mmol/L 08/03/2023 9:04 AM EDT [facility] BUN 8 7 - 23 mg/dL 08/03/2023 9:04 AM EDT [facility] Creatinine 0.66 0.50 - 1.20 mg/dL 08/03/2023 9:04 AM EDT [facility] Glucose 79 70 - 99 mg/dL 08/03/2023 9:04 AM EDT [facility] Calcium 9.1 8.7 - 10.7 mg/dL 08/03/2023 9:04 AM EDT [facility] Anion Gap 9 5 - 15 08/03/2023 9:04 AM EDT [facility] eGFR >90 >=60 mL/min/1. 73m2 08/03/2023 9:04 AM EDT [facility] Comment:The estimated glomer ular filtration rate (eGFR) is calculated using a new formula developed by the NKF-ASN task force to eliminate race-based correction factors. The new formula uses serum/plasma creatinine, age, and gender to determine eGFR. A value below 60mls/min might indicate kidney disease and will be flagged. For additional information, see Ruiz et al, Am J Kidney Dis. 2021;79(2):268- 288, A Unifying Approach for GFR estimation: Recommendations of the NKF-ASN Task Force on Reassessing the Inclusion of Race in Diagnosing Kidney Disease . 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
--- OUTSIDE RECORDS SUMMARY | 2024-12-01 17:40 | XMS_ITS | Clinical Summary ---
Author Organization [facility] Address [address] [place] [address] Phone Care Team Providers Care Marketing Production Coordinator Name Role Phone Leandra Stephens MD Primary Care Provider [phone] Allergies No known active allergies Medications lamoTRIgine [...] (0.5 mg total) by mouth. 5 Active Active Problems Problem Noted Date Diagnosed [...] Overview (05/27/2024): DX:Anxiety; COMMENT: Comments: psych at [facility] in [place] Comments: [facility] at [facility] [place] Hypertriglyceridemia 01/01/2018 Overview (05/27/2024): DX:Hypertriglyceridemia Insomnia 01/01/2018 [...] (BMI) of 45.0 to 49.9 in adult ([facility] V24, [facility] V28) Overview (05/27/2024): DX:Class 3 severe obesity due to excess calories with serious comorbidity and body mass index (BMI) of 45.0 to 49.9 in adult ([facility]) Encounters Date Type Department Care Team Description 11/05/2024 Lab Requisition [facility] - Main Lab [address] [place] [address] Phyllis Zacarias FNP Other residential (current) drug therapy 11/05/2024 Lab Requisition [facility] - Main Lab [address] [place] [address] Phyllis Zacarias FNP from Last 3 Months Immunizations Name Administration Dates Next Due Hepatitis B ([id number]-O-Xokpu , Recombivax HB-Adult) 19yo and older 04/17/2017,03/17/2017 Tdap Tetanus diptheria acell ular pertussis (Boostrix; Adacel) 7yo and older 05/10/2009 Surgical History Surgery Date Site/Laterality Comments WISDOM TOOTH EXTRACTION 2009 PROCEDURE: HISTORICAL WISDOM TEETH EXTRACTION CHOLECYSTECTOMY PROCEDURE: HISTORICAL CHOLECYSTECTOMY; COMMENT: lap sung Medical History Medical History Date Comments Morbid obesity with BMI of 4 0.0-44.9, adult ([facility], [facility] V28) 07/03/2005 DX:Morbid obesity wit h BMI of 40.0-44.9, adult ([facility]) Deliberate self-cutting 07/03/2017 DX:Delib erate self-cutting Depression [...] 01/01/2018 DX:Anxiety; COMM ENT: Comments: psych at [facility] in [place] GERD (gastroesophageal reflux disease) 02/11/2017 DX:GERD (gastroesophageal reflux disease) Paresthesias 07/06/2017 DX:Paresthesias; COMMENT: Comments: likely due to anxiety Left ankle injury 01/01/2018 DX:Left ankle injury Hypertriglyceridemia 01/01/2018 DX:Hypertri glyceridemia Class 3 severe obesity due t o excess calories with serious comorbidity and body mass index (BMI) of 45.0 to 49.9 in adult ([facility], [facility] V28) 03/17/2019 DX:Class 3 severe obesity d ue to excess calories with serious comorbidity and body mass index (BMI) of 45.0 to 49.9 in adult ([facility]) Obesity 05/04/2019 DX:Obesity Family History Medical History Relation Name Comments Other: gout Father Alcohol abuse Mother Hypertension Mother Relation Name Status Comments Father Alive Maternal Grandmother Alive diabete s Mother (Age 53) HTN, alcoh ol abuse- passed 2016 Sister 1 Alive Sister 2 Alive Social [...] 71 06/24/2024 8:17 AM EDT Temperature 36.8 C (98.2 F) 05/18/2024 6:38 PM EST Respiratory Rate 20 05/18/2024 6:38 PM EST [...] (2 - Td or Tdap) 05/10/2019 05/10/2009 HIV Screening 03/16/2022 Hepatitis C Screening 03/16/2022 Social Influencers of Health Screening 03/16/2022 COVID-19 Vaccine ( - season) 2023 04/01/2023, 08/26/2020, 08/05/2020 Depression Screening 04/13/2024 Influenza Vaccine (#1) 2024 04/01/2023, 2017 Hypertension/CHF/CAD Annual BMP Blood Test 05/18/2025 05/18/2024, [...] 5 Years) and At-Risk Patients (6 to 49 Years) Aged Out No longer eligible based on patient's age to complete this topic RSV Immunization Patients Under 20 months Aged Out No longer eligible based on patient's age to complete this topic Varicella Vaccines Aged Out No longer eligible based on patient's age to complete this topic Procedures Procedure Name Priority Date/Time Associated Diagnosis Comments DAVIS URINE CULTURE TUBE Routine 11/05/2024 7:00 AM EDT Other residential (current) drug therapy URINALYSIS WITH REFLEX MICROSCOPIC Routine 11/05/2024 7:00 AM EDT Other ocean transportation intermediary (current) drug therapy URINALYSIS WITH REFLEX MICROSCOPIC Routine 11/05/2024 7:00 AM EDT Other ocean transportation intermediary (current) drug therapy CHLAMYDIA TRACHOMATIS AND NEISSERIA GONORRHOEAE PCR Routine 11/05/2024 7:00 AM EDT Other residential (current) drug therapy TRICHOMONAS, URINE Routine 11/05/2024 7: 00 AM EDT Other ocean transportation intermediary (current) drug therapy COMPREHENSIVE METABOLIC PANEL STAT 05/18/2024 1:53 PM EST LIPID PANEL Routine 01/06/2021 HM PAP SMEAR Routine 06/06/2009 from Last 3 Months or Most Recently Relevant to Health Maintenance Results * (ABNORMAL) Urinalysis with reflex microscopic (11/05/2024 7:00 AM EDT) Specific [place] Urine 1.023 1.003 - 1.030 LAB URINALYSIS - AUTOMATED METHOD 11/05/2024 11:35 AM [facility] pH, Urine 5.5 5.0 - 8.0 pH LAB URINALYSIS - AUTOMATED METHOD 11/05/2024 11:35 AM [facility] Leukocytes, Urine Small(A) Negative LAB URINALYSIS - AUTOMATED METHOD 11/05/2024 11:35 AM [facility] Nitrite, Urine Negative Negative LAB URINALYSIS - AUTOMATED METHOD 11/05/2024 11:35 AM [facility] Protein, Urine Negative <=Trace mg/dL LAB URINALYSIS - AUTOMATED METHOD 11/05/2024 11:35 AM [facility] Glucose, Urine Negative Negative mg/dL LAB URINALYSIS - AUTOMATED METHOD 11/05/2024 11:35 AM [facility] Ketones, Urine 15(A) Negative mg/dL LAB URINALYSIS - AUTOMATED METHOD 11/05/2024 11:35 AM [facility] Urobilinogen, Urine 1.0 0.2 - 1.0 mg/dL LAB URINALYSIS - AUTOMATED METHOD 11/05/2024 11:35 AM [facility] Bilirubin, Urine Negative Negative LAB URINALYSIS - AUTOMATED METHOD 11/05/2024 11:35 AM [facility] Blood, Urine Negative Negative LAB URINALYSIS - AUTOMATED METHOD 11/05/2024 11:[address] [facility] RBC, Urine 1.0 0 - 4 /HPF LAB URINALYSIS - AUTOMATED METHOD 11/05/2024 11:[address] [facility] WBC, Urine 5.2(H) 0 - 4 /HPF LAB URINALYSIS - AUTOMATED METHOD 11/05/2024 11:[address] [facility] Squamous Epithelial, Urine >100(H) 0 - 60 /LPF LAB URINALYSIS - AUTOMATED METHOD 11/05/2024 11:[address] [facility] Bacteria, Urine Few(A) Negative /HPF LAB URINALYSIS - AUTOMATED METHOD 11/05/2024 11:[address] [facility] Hyaline Casts, Urine 0.0 0 - 3 /LPF LAB URINALYSIS - AUTOMATED METHOD 11/05/2024 11:[address] [facility] Urine Urine specimen obtained by clean catch procedure / Unknown Non-blood Collection / Unknown 11/05/2024 7:00 AM EDT 11/05/2024 10:56 AM EDT us Phyllis Zacarias [facility] URINE ORDERABLES Final Result [facility] [address] [place] [address], [place] [phone] * Davis urine culture tube (11/05/2024 7:00 AM EDT) Extra Tube Hold for add-ons. 11/05/2024 1:[address] [facility] Comment:Auto resulted. Urine Urine specimen obtained by clean catch procedure / Unknown Non-blood Collection / Unknown 11/05/2024 7:00 AM EDT 11/05/2024 11:11 AM EDT us Phyllis Zacarias [facility] URINE ORDERABLES Final Result [facility] [address] [place] [address], [place] [phone] * Trichomonas, urine (11/05/2024 7:00 AM EDT) Pathologist [facility] Trichomonas, Urine None Seen None Seen 11/05/2024 11:[address] [facility] Urine Urine specimen obtained by clean catch procedure / Unknown Non-blood Collection / Unknown 11/05/2024 7:00 AM EDT 11/05/2024 10:56 AM EDT us Phyllis Zacarias [facility] MICROBIOLOGY - GENERAL ORDERABLES Final Result Performing Organization Address [facility]/ZIP Co de Phone Number [facility] [address] [place] [address], [place] [phone] * Chlamydia trachomatis and Neisseria gonorrhoeae molecular study (11/05/2024 7:00 AM EDT) [facility] Neisseria gonorrhoeae PCR Negative Negative LAB MOLECULAR DIAGNOSTICS METHOD 11/05/2024 2:[address] [facility] Chlamydia trachomatis PCR Negative Negative LAB MOLECULAR DIAGNOSTICS METHOD 11/05/2024 2:[address] [facility] Swab Cervix uteri structure / Unknown Non-blood Collection / Unknown 11/05/2024 7:00 AM EDT 11/05/2024 10:56 AM EDT us Phyllis Zacarias [facility] MICROBIOLOGY - GENERAL ORDERABLES Final Result Performing Organization Address City/[facility]/ZIP Co de Phone Number [facility] [address] [place] [address], [place] [phone] * Comprehensive metabolic panel (05/18/2024 1:53 PM EST) [facility] Sodium 137 133 - 145 mmol/L LAB CHEMISTRY METHOD 05/18/2024 2:45 PM [facility] Potassium 3.9 3.5 - 5.5 mmol/L LAB CHEMISTRY METHOD 05/18/2024 2:45 PM [facility] Chloride 106 96 - 110 mmol/L LAB CHEMISTRY METHOD 05/18/2024 2:45 PM [facility] CO2 27 21 - 32 mmol/L LAB CHEMISTRY METHOD 05/18/2024 2:45 PM [facility] Anion Gap 4 3 - 11 LAB CHEMISTRY METHOD 05/18/2024 2:45 PM [facility] Glucose 92 70 - 100 mg/dL LAB CHEMISTRY METHOD 05/18/2024 2:45 PM [facility] BUN 9 5 - 25 mg/dL LAB CHEMISTRY METHOD 05/18/2024 2:45 PM [facility] Creatinine 0.79 0.50 - 1.10 mg/dL LAB CHEMISTRY METHOD 05/18/2024 2:45 PM [facility] eGFR 97 >=60 mL/min/1. 73m2 LAB CHEMISTRY METHOD 05/18/2024 2:45 PM [facility] Comment:Calculation based on the Chronic Kidney Disease Epidemiology Collaboration (CKD-EPI) equation refit without adjustment for race. BUN/Creatinine Ratio 11.4 LAB CHEMISTRY METHOD 05/18/2024 2:45 PM [facility] Calcium 9.4 8.5 - 10.5 mg/dL LAB CHEMISTRY METHOD 05/18/2024 2:45 PM [facility] AST (SGOT) 37 10 - 42 unit/L LAB CHEMISTRY METHOD 05/18/2024 2:45 PM [facility] ALT (SGPT) 50 10 - 60 unit/L LAB CHEMISTRY METHOD 05/18/2024 2:45 PM [facility] Alkaline Phosphatase 100 42 - 121 unit/L LAB CHEMISTRY METHOD 05/18/2024 2:45 PM [facility] Total Protein 7.3 6.0 - 8.0 g/dL LAB CHEMISTRY METHOD 05/18/2024 2:[address] [facility] Albumin 4.3 3.2 - 5.0 g/dL LAB CHEMISTRY METHOD 05/18/2024 2:[address] [facility] Total Bilirubin 0.5 0.0 - 1.4 mg/dL LAB CHEMISTRY METHOD 05/18/2024 2:[address] [facility] Blood Venous blood specimen / Unknown Venipuncture / Unknown 05/18/2024 1:53 PM EST 05/18/2024 1:59 PM EST Christopher Holbrook DO LAB BLOOD ORDERABLES Final Result [facility] [address] [place] [address], * Lipid panel (01/06/2021) LDL/HDL Ratio 0 [...] Most Recently Relevant to Health Maintenance Insurance [facility] Member Subscriber Plan / Payer (Ef fective 2019-Present) Name:JOSÉ LUIS SOUZA Relation to Subscriber:Self Name:José Luis Souza Payer ID:[id number] Group ID:[id number] Type:Not on file Address: [facility] [address] [address] Advance Directives Documents on File Type Date Recorded Patient Computer Networking Instructor Adjunct Expl anation Health Care Decision (hx) 11/20/2015 [...] (hx) 11/20/2015 AD POLO DIRECTIVE Care Teams Marketing Production Coordinator Relationship Specialty Start Date End Date Leandra Stephens MD [address] [place] [address] PCP - General Internal Medicine 03/16/16
--- OUTSIDE RECORDS SUMMARY | 2024-12-01 17:40 | XMS_ITS | Encounter Summary ---
Author Organization [facility] Address [address] [facility] [address] [place] [address] Phone Care Team Providers Care Commercial Loan Specialist Name Role Phone Leandra Stephens MD Primary Care Provider Encounter Details Date Type Department Care Team (Late st Contact Info) Description 02/26/2023 Procedure Pass [facility], Ct Scan - [address] [address] Social History Tobacco Use Types Packs/Day Years Used Date Smoking Tobacco: Never Assessed Education Answer Date Recorded Are you interested in more education? Not on garcia e 08/08/2022 Are you concerned about learning? Not on file 08/08/2022 No 08/08/2022 No 08/08/2022 Digital Access Answer Date Recorded No 09/08/2022 No 09/08/2022 Reliable internet access at home? Not on file 09/08/2022 Device with a working camera? Not on file Intimate Partner Violence Answer Date R ecorded Are you denied basic needs s uch as food, clothing, or medical care? No 02/26/2023 In the past 12 months have y ou been in a relationship with a person who hurts, threatens, or tries to control you? No 02/26/2023 Are you denied basic needs s uch as food, clothing, or medical care? No 02/26/2023 In the past 12 months have y ou been in a relationship with a person who hurts, threatens, or tries to control you? No 02/26/2023 Comments Unknown Sex and Gender Information Value Date Recorded Sex Assigned at Not on file Legal Sex Female 3:47 PM EDT Gender Identity Not on file Sexual Orientation Not on file documented as of this encounter Functional Status * Calculated C-SSRS Risk Score (Lifetime/Recent) Answer Date of Assessment Author High Risk 02/26/2023 6:41 AM Jeanne Patel RN * [place] Suicide Severity Rating Scale (Screener/Recent Self-Report) Question Answer Date of Assessment Author 1. Wish to be (Past 1 Month) Yes 023 6:41 AM Jeanne Patel RN 2. Non-Specific Active Suici siria Thoughts (Past 1 Month) Yes 02/26/2023 6:41 AM Carter Patel RN 3. Active Suicidal Ideation with any Methods (Not Plan) Without Intent to Act (Past 1 Month) No 02/26/2023 6:41 AM Jeanne Patel RN 4. Active Suicidal Ideation with Some Intent to Act, Without Specific Plan (Past 1 Month) No 02/26/2023 6:41 AM Jeanne Patel RN 5. Active Suicidal Ideation with Specific Plan and Intent (Past 1 Month) Yes 02/26/2023 6:41 AM Jeanne Patel RN 6. Suicidal Behavior (Lifetime) Yes 3 6:41 AM Jeanne Patel RN 6. Suicidal Behavior (3 Months) Yes 3 6:41 AM Jeanne Patel RN documented as of this encounter Plan of Treatment Not on file documented as of this encounter Visit Diagnoses Not on filedocumented in this encounter Care Teams Commercial Loan Specialist Relationship Specialty Start Date End Date Leandra Stephens MD [address] [facility] [address] [place] [address] PCP - General Internal Medicine 02/26/23 documented as of this encounter Additional Source Comments The information contained in this document represents components of the legal health record. It is not the complete legal health record.[facility]
--- OUTSIDE RECORDS SUMMARY | 2024-12-01 17:40 | XMS_ITS | Clinical Summary ---
Author Organization [facility] Address [address] [place] [id number] Care Team Providers Care Slipcover Cutter Name Role Phone Unavailable Primary Care Provider [...] Date End Date Status buPROPion 450 MG [id number]:Bety r Depressive Disorder Take 450 mg by [...] 105 02/01/2021 9:05 AM EDT Temperature 36.3 C (97.3 F) 02/01/2021 9:00 AM EDT Respiratory Rate 16 02/01/2021 9:05 AM EDT [...] or Tdap) 05/10/2019 010 Influenza Vaccine (#1) 2024 Pneumococcal Vaccine Aged Out No long er eligible based on patient's age to complete this topic RSV Ped < 20 months Aged Out No longe r eligible based on patient's age to complete this topic Advance Directives For more information, please contact: [phone] Latest Code Status on File Code Status Date Activated Date Inactivated Comments Full Code 01/06/2021 2:17 AM 02/01/2021 6:17 PM This code status was ascertained in the following way: per unit protocol.
--- NOTE | 2024-12-01 18:31 | ED.PSYCH ---
HPI - Psych General Chief Complaint: Psychiatric Symptoms Stated Complaint: SI Time Seen by Provider: 12/01/24 17:38 Source: patient Mode of arrival: ambulatory Limitations: no limitations History of Present Illness ED Provider: Dr. Desire Zamarripa HPI Narrative: 39-year-old female with history of PTSD, depression, anxiety presenting from the [facility] where she is currently receiving treatment for an overdose that occurred in the middle of October. She reports that she had been talking about feeling suicidal for almost a week now but today the [facility] decided to send her to the emergency department for evaluation. Describes suicidality with a plan for overdosing, strangling herself or driving erratically so she would go off the road. No specific stressors. She states that she has been depressed for months. Denies visual or auditory hallucinations. No drug or alcohol use. No homicidal thoughts. Has been feeling relatively well physically. Related Data Home Medications ?Medication ?Instructions ?Recorded ?Confirmed benztropine 0.5 mg tablet 0.5 mg PO TID PRN Muscle stiffness 11/22/24 11/22/24 quetiapine 300 mg tablet (Seroquel) 300 mg PO BEDTIME 11/22/24 11/22/24 Previous Rx's ?Medication ?Instructions ?Recorded pramipexole 0.5 mg tablet 0.5 mg PO BEDTIME as directed #30 09/24/23 tabs quetiapine 50 mg tablet,extended 100 mg (2 x 50 mg) PO BEDTIME #30 11/22/24 release 24 hr (Seroquel XR) tabs lamotrigine 25 mg tablet 25 mg PO DAILY 14 days #14 tabs 11/28/24 lorazepam 0.5 mg tablet 0.5 mg PO BID PRN anxiety #20 tabs 11/28/24 dextroamphetamine-amphetamine ER 5 5 mg PO QAM #14 caps 12/01/24 mg 24hr capsule,extend release (Adderall XR) quetiapine 50 mg tablet 50 mg PO BID #30 tabs 12/01/24 Allergies Allergy/AdvReac Type Severity Reaction Status Date / Time coconut Allergy Severe Anaphylaxis Verified 12/01/24 17:32 nut - unspecified (NUTS) Allergy Severe HIVES, Verified 12/01/24 17:32 DIFF BREATHING, THROAT SWELLS peanut Allergy Severe Anaphylaxis Verified 12/01/24 17:32 Review of Systems Review of Systems: as per HPI, full review of systems performed and negative but for the above mentioned pertinent positives and negatives. [facility] Past Medical History Medical History Fatty liver Atypical chest pain Vitamin B 12 deficiency Mixed hyperlipidemia Routine history and physical examination of adult HTN (hypertension) MARIA TERESA (obstructive sleep apnea) GERD (gastroesophageal reflux disease) Post traumatic stress disorder (PTSD) TREY (generalized anxiety disorder) MDD (major depressive disorder), recurrent severe, without psychosis Surgical History Hx of cholecystectomy H/O gastric bypass Family History Family History Mother Heart disease Social History Social History Household Members: Family Household Members Other:: 18 year old daughter Housing: Unknown / Unable to assess Do you presently have visiting nurse or other home services: Yes (for medication management) Alcohol intake: current Alcohol intake frequency: does not drink Comment: Discharge date was set for September 17, extended until September 24 Patient Tobacco Use Status: Never used Tobacco Advance Directives: Yes Advance Directives Information Provided: Yes Advance Directives on File: No Do you have a plan to hurt others: No Plan service: No Sexual orientation: Straight/Heterosexual Physical Exam Exam: Exam: GENERAL: Appears chronically ill, no acute distress. SKIN: Normal skin color for ethnicity, warm, dry, no rashes noted. HEENT: Normocephalic, atraumatic, no stridor, posterior oropharynx nonerythematous, dentition intact, EOMI. NECK: Soft, supple, full ROM, midline structures nontender, no step-offs, no deformities, no lymphadenopathy. CHEST: Heart regular rate and rhythm, no murmurs, symmetric chest rise and fall. PULMONARY: Clear to auscultation bilaterally, no labored breathing, no wheezes/rhales/ rhonchi. ABDOMINAL: Soft, nondistended, nontender, positive bowel sounds in all quadrants. : Deferred. MUSCULOSKELETAL: Normal tone, full range of motion, no deformities, no peripheral edema. NEURO: Alert and oriented x3, CN II through XII intact, equal strength and sensation bilateral upper and lower extremities, no focal neurologic deficits. PSYCHIATRIC: Flat affect, poor eye contact, withdrawn, suicidal Vital Signs: Vital Signs: Last Vital Signs Temp 97.6 F 12/01/24 17:30 Pulse 104 H 12/01/24 17:30 Resp 18 12/01/24 17:30 BP 159/81 H 12/01/24 17:30 Pulse Ox 99 12/01/24 17:30 O2 Del Method Room Air 12/01/24 17:30 BMI result Body Mass Index 33.4 Medical Decision Making Medical Decision Making [facility] Narrative: Patient presents with psychologic complaints. Differential diagnosis includes suicidal ideations, homicidal ideations, depression, anxiety, mood disorder, decompensated mental illnesses such as schizophrenia or bipolar disorder, medication noncompliance, among many others. Medical clearance protocol was initiated. 8:05 PM 12/01/2024 (Dr. Desire Zamarripa, D.O.) patient evaluated by care team. She is essentially at her baseline with her suicidality. She panicked today when she was told she had to come to the hospital for evaluation. 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 Using shared decision making, plan for discharge home to follow-up with primary care and/or specialist. Patient understands and agrees with plan for discharge. Discharged home in stable condition to continue with the [facility]. Differential Diagnosis Differential Diagnoses: The differential diagnosis associated with the presentation includes (as above) Admission/Observation Consideration of admission/observation: Escalation of care including admission/observation considered Consult Healthcare Provider Management of the patient was discussed with: Behavioral Health Provider Lab Data [facility] Lab Attestation statement: I reviewed the patient's lab results. 12/01/24 19:40 12/01/24 19:40 Labs: Lab Results 12/01/24 Range/Units 19:40 WBC 10.3 (4.8-10.8) X10*3/uL RBC 4.50 (4.20-5.50) X10*6/uL Hgb 14.2 (12.0-16.0) g/dl Hct 40.8 (37.0-47.0) % MCV 90.7 (80.0-98.0) fL MCH 31.6 (27.0-33.0) pg MCHC 34.8 (31.0-35.0) g/dl RDW 13.0 (11.0-16.0) % Plt Count 223 (160-400) X10*3/uL MPV 10.5 (9.4-12.3) fL Immature Gran % (Auto) 0.2 (0.0-0.4) % Neut % (Auto) 57.6 (45-73) % Lymph % (Auto) 31.1 (20-40) % [place] % (Auto) 8.3 (2-11) % Eos % (Auto) 2.2 (0-4) % Baso % (Auto) 0.6 (0-2) % Lymph # (Auto) 3.2 (1.2-4.9) X10*3/uL [place] # (Auto) 0.9 (0.1-1.2) X10*3/uL Eos # (Auto) 0.2 (0.0-0.4) X10*3/uL Baso # (Auto) 0.1 (0.0-0.2) X10*3/uL Abs Immat Gran (auto) 0.02 (0.00-0.03) X10*3/uL Absolute Neuts (auto) 6.0 (2.0-8.3) x10*3/uL Absolute Nucleated RBC 0.000 (0.0-0.012) X10*3/uL Nucleated RBC % (auto) 0.0 (0.0-0.2) /100WBC Urine Color Yellow Urine Appearance Cloudy Urine pH 5.5 (5.0-9.0) Ur Specific [place] 1.015 (1.005-1.025) Urine Protein Negative (Neg-Trace) mg/dL Urine Glucose (UA) Negative (Negative) mg/dL Urine Ketones Negative (Negative) mg/dL Urine Blood Negative (Negative) Urine Nitrite Negative (Negative) Ur Leukocyte Esterase Trace H (Negative) Urine RBC 0-2 (0-2) /HPF Urine WBC 0-5 (0-5) /HPF Ur Squamous Epith Cells 6-10 (0-2) /HPF Urine Bacteria 1+ (None Seen) Hyaline Casts 0-2 (0-2) /LPF Urine Test NEGATIVE (NEGATIVE) Independent Historian Clinical information obtained from an independent historian. History obtained from or confirmed by: Parent External Record Review External record reviewed: Inpatient record Chronic Conditions Patient?s care impacted by: Other (depression, anxiety, severe PTSD) Discharge Plan Discharge Clinical Impression: Suicidal ideation, MDD (major depressive disorder), recurrent severe, without psychosis Patient Disposition: Home, Self-Care Instructions: Suicide Prevention (ED) Additional Instructions: You were seen in our Emergency Department today for treatment of a behavioral health issue. It is important after your visit that you follow up with either your behavioral health provider or a primary care doctor within 7 days.? If you have trouble finding a therapist you can reach out to [address] [phone] [facility] can be reached 7 days a week 24 hours a day.? Call [phone] to speak with someone.? Return for any worsening symptoms or concerns such as thoughts of self harm or harm to others. Please call 911 if you feel your mental health is worsening.? Prescriptions: No Action pramipexole 0.5 mg tablet 0.5 mg PO BEDTIME Qty: 30 0RF quetiapine [Seroquel] 300 mg Tablet 300 mg PO BEDTIME quetiapine [Seroquel XR] 50 mg tablet extended release 24 hr 100 mg PO BEDTIME Qty: 30 0RF benztropine [Cogentin] 0.5 mg Tablet 0.5 mg PO TID PRN (Reason: Muscle stiffness) Rx Instructions: Patient stated she is not taking this medication. The medication was never picked up per pharmacy. lorazepam 0.5 mg tablet 0.5 mg PO BID PRN (Reason: anxiety) Qty: 20 0RF lamotrigine 25 mg tablet 25 mg PO DAILY 14 Days Qty: 14 0RF quetiapine 50 mg tablet 50 mg PO BID Qty: 30 0RF dextroamphetamine-amphetamine [Adderall XR] 5 mg capsule,extended release 24hr 5 mg PO QAM Qty: 14 0RF Rx Instructions: Partial Fill upon patient request. Interventions: [place]-Suicide Risk Severity Scale Last Done: 12/01/24 19:00 Print Language: Occitan
[2024-12-01 19:46] LABS: MANUAL DIFF FLAG NO
[2024-12-01 19:48] LABS: Hematocrit 40.8 % (37.0-47.0); Hemoglobin 14.2 g/dl (12.0-16.0); Imm Gran Abs Auto 0.02 X10*3/uL (0.00-0.03); Imm Gran Pct Auto 0.2 % (0.0-0.4); Lymphocytes Absolute Auto 3.2 X10*3/uL (1.2-4.9); Mean Corpuscular HGB Conc 34.8 g/dl (31.0-35.0); Mean Corpuscular Hemoglobin 31.6 pg (27.0-33.0); Mean Corpuscular Volume 90.7 fL (80.0-98.0); NRBC Abs Auto 0.000 X10*3/uL (0.0-0.012); NRBC Pct Auto 0.0 /100WBC (0.0-0.2); Platelet Count 223 X10*3/uL (160-400); Red Blood Count 4.50 X10*6/uL (4.20-5.50); White Blood Count 10.3 X10*3/uL (4.8-10.8)
[2024-12-01 19:51] LABS: UPreg QC Valid YES
[2024-12-01 19:52] LABS: Appearance Urine Cloudy; Glucose Urine UA Negative (Negative); PH 5.5 (5.0-9.0); Specific Gravity - Urine 1.015 (1.005-1.025); UMIC TRIGGER UACC YES
[2024-12-01 20:08] LABS: Acetaminophen LAB < 3 mcg/mL (<30); Salicylate < 5.0 mg/dL (15-30)
[2024-12-01 20:10] LABS: Alanine Aminotransferase 26 U/L (0-31); Albumin Level 4.3 g/dL (3.5-5.0); Alkaline Phosphatase 92 U/L (39-117); Anion Gap 11 (12-20); Aspartate Amino Transferase 27 U/L (5-31); Blood Urea Nitrogen 5 mg/dL (9-16); Calcium 9.1 mg/dL (8.4-10.2); Cannabinoid Screen Urine Not Detected (Not Detect); Carbon Dioxide 25 mmol/L (22-29); Chloride 109 mmol/L (96-108); Creatinine Clr Calc Pharmacy 122.0; Estimated Glomerular Filt Rate > 60; Potassium 3.6 mmol/L (3.3-5.1); Sodium 141 mmol/L (135-145); Total Protein 6.8 g/dL (6.5-8.0)
[2024-12-01 20:18] VITALS: BP 159/81; PULSE 104; RESP 18; TEMP 36.4; O2SAT 99
== END 2024-12-01 20:30 | disposition home or self-care (01) ==
PROVIDERS: Emergency Provider Emergency Medicine; PCP Hospitalist
DX: F33.2 Major depressive disorder, recurrent severe without psychotic features (principal); R45.851 Suicidal ideations; Z51.81 Encounter for therapeutic drug level monitoring; Z79.899 Other long term (current) drug therapy
CPT/HCPCS: 36415; 80053; 80143; 80179; 80307; 81001; 81025; 85025; 99284; 99285; S9485

== ENCOUNTER 2024-12-02 13:16 | Emergency (ER) | payer OTHER, SELFPAY ==
[2024-12-02 13:24] VITALS: BP 117/75; PULSE 94; RESP 16; TEMP 36.4; O2SAT 98; BMI 37.9
--- NOTE | 2024-12-02 13:26 | ED_ITS ---
HPI - General Adult General Chief complaint: Psychiatric Symptoms Stated complaint: Needs Care Team Time Seen by Provider: 12/02/24 13:55 Source: patient Mode of arrival: ambulatory Limitations: no limitations History of Present Illness ED Provider: Darcy Rush PA-C HPI narrative: Patient is a 39 year old assigned female at with a history of PTSD, depression, and anxiety presenting to the emergency department today with depression and concerns of CO poisoning. Patient states that she is currently in the partial program for depression and the CO detector at her house went off last night so she is concerned she is CO poisoned. Patient states that she was experiencing some lightheadedness, nausea, dizziness, and shortness of breath but those symptoms have all since resolved. Related Data Home Medications ?Medication ?Instructions ?Recorded ?Confirmed benztropine 0.5 mg tablet 0.5 mg PO TID PRN Muscle sti ffness 11/22/24 11/22/24 quetiapine 300 mg tablet (Seroquel) 300 mg PO BEDTIME 11/22/24 11/22/24 Previous Rx's ?Medication ?Instructions ?Recorded pramipexole 0.5 mg tablet 0.5 mg PO BEDTIME as directe d #30 09/24/23 tabs quetiapine 50 mg tablet,extended 100 mg (2 x 50 mg) PO BEDTIME #30 11/22/24 release 24 hr (Seroquel XR) tabs lamotrigine 25 mg tablet 25 mg PO DAILY 14 days #14 t abs 11/28/24 lorazepam 0.5 mg tablet 0.5 mg PO BID PRN anxiety #2 0 tabs 11/28/24 dextroamphetamine-amphetamine ER 5 5 mg PO QAM #14 cap s 12/01/24 mg 24hr capsule,extend release (Adderall XR) quetiapine 50 mg tablet 50 mg PO BID #30 tabs Allergies Allergy/AdvReac Type Severity Reaction Status Date / Time coconut Allergy Severe Anaphylaxis Verified 12/02/24 13:28 nut - unspecified (NUTS) Allergy Severe HIVES, Verified 12/02/24 13:28 DIFF BREATHING, THROAT SWELLS peanut Allergy Severe Anaphylaxis Verified 12/02/24 13:28 fish derived (fish) AdvReac Intermediate Gastrointestinal Verified 12/02/24 19:38 Upset Review of Systems 2 Constitutional: Constitutional: Reports no additional constitutional complaints, Denies chills, Denies fever(s) and Denies night sweats Eyes: Eyes: Reports no additional eye complaints, Denies blurry vision, Denies change in vision, Denies diplopia, Denies eye discharge, Denies loss of vision and Denies eye pain ENT: Reports dizziness (now resolved) Cardiovascular: Cardiovascular: Reports no additional cardiovascular complaints, Denies chest pain, Reports lightheadedness (now resolved), Denies Loss of Consciousness and Reports dyspnea (now resolved) Respiratory: Respiratory: Reports no additional respiratory complaints and Reports dyspnea (now resolved) Gastrointestinal: Gastrointestinal: Reports no additional gastrointestinal complaints, Denies abdominal pain, Denies melena, Denies hematochezia, Denies change in bowel habits, Denies change in stool character and Reports nausea (now resolved) Genitourinary: Genitourinary: Denies hematuria, Denies urinary frequency, Denies dysuria, Denies urinary incontinence, Denies urinary hesitancy and Denies urinary urgency Musculoskeletal: Musculoskeletal: Reports no additional musculoskeletal complaints, Denies numbness and Denies tingling Neurologic: Reports dizziness (now resolved), Denies loss of vision, Denies numbness and Denies tingling Psychiatric: Psychiatric: Reports no additional psychiatric complaints Endocrine: Endocrine: Reports no additional endocrine complaints Hematologic/Lymphatic: Hematologic/Lymphatic: Reports no additional hematologic/lymphatic complaints Allergic/Immunologic: Allergic/Immunologic: Reports no additional allergic/immunologic complaints [facility] Past Medical History Attestation statement: The following information was validated with the patient. Source: old records reviewed and nursing notes reviewed Medical History Fatty liver Atypical chest pain Vitamin B 12 deficiency Mixed hyperlipidemia Routine history and physical examination of adult HTN (hypertension) MARIA TERESA (obstructive sleep apnea) GERD (gastroesophageal reflux disease) Post traumatic stress disorder (PTSD) TREY (generalized anxiety disorder) MDD (major depressive disorder), recurrent severe, without psychosis Surgical History Hx of cholecystectomy H/O gastric bypass Family History Family History Mother Heart disease Social History Social History Household Members: Family Household Members Other:: 18 year old daughter Housing: Unknown / Unable to assess Do you presently have visiting nurse or other home services: Yes (for medication management) Alcohol intake: current Alcohol intake frequency: does not drink Comment: Discharge date was set for September 17, extended until September 24 Patient Tobacco Use Status: Never used Tobacco Do you have thoughts of harming others: None service: No Sexual orientation: Straight/Heterosexual Physical Exam ED Vital Signs: Vital Signs - 24 hr 12/02/24 13:24 Temperature 97.5 F Pulse Rate 94 Respiratory Rate 16 Blood Pressure 117/75 Pulse Oximetry 98 Oxygen Delivery Method Room Air BMI result Body Mass Index 37.9 Const General: cooperative, no acute distress, alert and awake Nutritional Appearance: well nourished Orientation/consciousness: patient oriented x3 HENMT Head: Yes normal to inspection and Yes atraumatic Ears: hearing grossly normal bilaterally and external ears normal General nose exam: Normal external nose present, no nasal discharge noted and no epistaxis Face and sinus: Yes normal facial exam, No abrasion and No laceration Mouth: Normal oral and palatal mucosa present, no drooling and no muffled voice Eyes General: appearance normal, both eyes and all related structures Periorbital: periorbital findings normal Eyelids: Yes eyelids normal Conjunctivae: conjunctivae normal Pupils: Equal, round and reactive pupils present EOM: EOMs intact bilaterally Neck Neck: Yes normal visual inspection and Yes full ROM Resp Effort & Inspection: normal respiratory effort and able to speak in complete sentences Neuro General: patient oriented x3, moves all extremities and CN's II-XI intact bilaterally Cranial nerves: Yes Equal, round and reactive pupils present Cognition (Neuro): normal cognition Extrem General: Yes normal to inspection, Yes full ROM and Yes capillary refill normal Psych Appearance: grossly normal Mental Status: mental status grossly normal Affect: normal affect Attitude: cooperative Thought process: Normal thought process present Thought content: Normal thought content present Insight: Good insight present (Psych) Course Course Course Narrative: RME, this is a rapid medical exam performed by Marcellus Rand please refer to primary provider for complete H&P- 39 year old female presents for evaluation of depression. She is currently in a partial hospitalization after an SI attempt a few weeks ago. She denies any active SI. She reports that her carbon monoxide alarm went off last night. Plan for medical clearance and likely care team consult Reevaluation(s) Reevaluation #1: Time: 20:38 Date: 12/02/24 Provider: Lowell Vargas DO Physician observation ended. Patient has been cleared for discharge by the CARE team. Time: 20:38 Medications Administered Discontinued Medications Generic Name Dose Route Start Last Admin Trade Name Jon PRN Reason Stop Dose Admin Lorazepam 1 mg 12/02/24 19:42 12/02/24 19:54 Lorazepam 1 Mg Tablet PO 12/02/24 19:43 1 mg ONCE ONE Administration Medical Decision Making Medical Decision Making [facility] Narrative: Patient is a 39 year old assigned female at with a history of PTSD, depression, and anxiety presenting to the emergency department today with depression and concerns of CO poisoning. Patient's physical exam was unremarkable. Patient's blood work was unremarkable - no evidence of CO poisoning. Patient's urine showed no acute process. I explained my physical exam findings as well as all test results to the patient. I answered all questions asked by the patient. Patient is in observation as of 1355 while she awaits CARE team evaluation. Patient's disposition will be determined after CARE team evaluation. Differential Diagnosis Differential Diagnoses: The differential diagnosis associated with the presentation includes Depression Admission/Observation Consideration of admission/observation: Escalation of care including admission/observation considered Patient's disposition will be determiend after CARE team evaluation. Lab Data [facility] Lab Attestation statement: I reviewed the patient's lab results. My interpretation of these results are in the [facility] Rationale portion of this note. 12/02/24 13:44 12/02/24 13:44 Labs: Lab Results 12/02/24 12/02/24 12/02/24 Range/Units 13:43 13:44 13:49 WBC 8.1 (4.8-10.8) X10*3/uL RBC 4.45 (4.20-5.50) X10*6/uL Hgb 14.0 (12.0-16.0) g/dl Hct 40.5 (37.0-47.0) % MCV 91.0 (80.0-98.0) fL MCH 31.5 (27.0-33.0) pg MCHC 34.6 (31.0-35.0) g/dl RDW 13.0 (11.0-16.0) % Plt Count 226 (160-400) X10*3/uL MPV 10.7 (9.4-12.3) fL Immature Gran % (Auto) 0.2 (0.0-0.4) % Neut % (Auto) 61.4 (45-73) % Lymph % (Auto) 27.7 (20-40) % [place] % (Auto) 6.7 (2-11) % Eos % (Auto) 3.4 (0-4) % Baso % (Auto) 0.6 (0-2) % Lymph # (Auto) 2.2 (1.2-4.9) X10*3/uL Milam # (Auto) 0.5 (0.1-1.2) X10*3/uL Eos # (Auto) 0.3 (0.0-0.4) X10*3/uL Baso # (Auto) 0.1 (0.0-0.2) X10*3/uL Abs Immat Gran (auto) 0.02 (0.00-0.03) X10*3/uL Absolute Neuts (auto) 4.9 (2.0-8.3) x10*3/uL Absolute Nucleated RBC 0.000 (0.0-0.012) X10*3/uL Nucleated RBC % (auto) 0.0 (0.0-0.2) /100WBC Carboxyhemoglobin % Cancelled 2.3 Sodium 141 (135-145) mmol/L Potassium 3.6 (3.3-5.1) mmol/L Chloride 110 H (96-108) mmol/L Carbon Dioxide 22 (22-29) mmol/L Anion Gap 13 (12-20) BUN 4 L (9-16) mg/dL Creatinine 0.63 (0.5-1.4) mg/dL Estim Creat Clear Calc 125.4 Estimated GFR > 60 Random Glucose 98 (60-115) mg/dL Calcium 8.7 (8.4-10.2) mg/dL Total Bilirubin 0.4 (0.0-1.0) mg/dL AST 20 (5-31) U/L ALT 26 (0-31) U/L Alkaline Phosphatase 95 (39-117) U/L Total Protein 6.6 (6.5-8.0) g/dL Albumin 4.1 (3.5-5.0) g/dL Urine Color Urine Appearance Urine pH (5.0-9.0) Ur Specific [place] (1.005-1.025) Urine Protein (Neg-Trace) mg/dL Urine Glucose (UA) (Negative) mg/dL Urine Ketones (Negative) mg/dL Urine Blood (Negative) Urine Nitrite (Negative) Ur Leukocyte Esterase (Negative) Urine Test (NEGATIVE) Salicylates < 5.0 L (15-30) mg/dL Urine Opiates Screen (Not Detect) Ur Buprenorphine Scrn (Not Detect) ng/mL Ur Oxycodone Screen (Not Detect) ng/mL Urine Methadone Screen (Not Detect) ng/mL Urine Fentanyl Screen (Not Detect) Acetaminophen < 3 (<30) mcg/mL Ur Barbiturates Screen (Not Detect) Ur Phencyclidine Scrn (Not Detect) Ur Amphetamines Screen (Not Detect) U Benzodiazepines Scrn (Not Detect) Urine Cocaine Screen (Not Detect) U Marijuana (THC) Screen (Not Detect) Ethyl Alcohol < 10 mg/dL 12/02/24 Range/Units 15:04 WBC (4.8-10.8) X10*3/uL RBC (4.20-5.50) X10*6/uL Hgb (12.0-16.0) g/dl Hct (37.0-47.0) % MCV (80.0-98.0) fL MCH (27.0-33.0) pg MCHC (31.0-35.0) g/dl RDW (11.0-16.0) % Plt Count (160-400) X10*3/uL MPV (9.4-12.3) fL Immature Gran % (Auto) (0.0-0.4) % Neut % (Auto) (45-73) % Lymph % (Auto) (20-40) % Milam % (Auto) (2-11) % Eos % (Auto) (0-4) % Baso % (Auto) (0-2) % Lymph # (Auto) (1.2-4.9) X10*3/uL [place] # (Auto) (0.1-1.2) X10*3/uL Eos # (Auto) (0.0-0.4) X10*3/uL Baso # (Auto) (0.0-0.2) X10*3/uL Abs Immat Gran (auto) (0.00-0.03) X10*3/uL Absolute Neuts (auto) (2.0-8.3) x10*3/uL Absolute Nucleated RBC (0.0-0.012) X10*3/uL Nucleated RBC % (auto) (0.0-0.2) /100WBC Carboxyhemoglobin % Sodium (135-145) mmol/L Potassium (3.3-5.1) mmol/L Chloride (96-108) mmol/L Carbon Dioxide (22-29) mmol/L Anion Gap (12-20) BUN (9-16) mg/dL Creatinine (0.5-1.4) mg/dL Estim Creat Clear Calc Estimated GFR Random Glucose (60-115) mg/dL Calcium (8.4-10.2) mg/dL Total Bilirubin (0.0-1.0) mg/dL AST (5-31) U/L ALT (0-31) U/L Alkaline Phosphatase (39-117) U/L Total Protein (6.5-8.0) g/dL Albumin (3.5-5.0) g/dL Urine Color Yellow Urine Appearance Clear Urine pH 5.5 (5.0-9.0) Ur Specific [place] <= 1.005 (1.005-1.025) Urine Protein Negative (Neg-Trace) mg/dL Urine Glucose (UA) Negative (Negative) mg/dL Urine Ketones Negative (Negative) mg/dL Urine Blood Negative (Negative) Urine Nitrite Negative (Negative) Ur Leukocyte Esterase Negative (Negative) Urine Test NEGATIVE (NEGATIVE) Salicylates (15-30) mg/dL Urine Opiates Screen Not Detected (Not Detect) Ur Buprenorphine Scrn Not Detected (Not Detect) ng/mL Ur Oxycodone Screen Not Detected (Not Detect) ng/mL Urine Methadone Screen Not Detected (Not Detect) ng/mL Urine Fentanyl Screen Not Detected (Not Detect) Acetaminophen (<30) mcg/mL Ur Barbiturates Screen Not Detected (Not Detect) Ur Phencyclidine Scrn Not Detected (Not Detect) Ur Amphetamines Screen Not Detected (Not Detect) U Benzodiazepines Scrn Not Detected (Not Detect) Urine Cocaine Screen Not Detected (Not Detect) U Marijuana (THC) Screen Not Detected (Not Detect) Ethyl Alcohol mg/dL Critical Care Time Critical Care Time Critical Care Time: Yes Total Critical Care Time: 36 Attestation: I spent 36 minutes of Critical Care Time with this patient. This does not include time spent on separately reported billable procedures. Discharge Plan Discharge Clinical Impression: Depression Patient Disposition: Home, Self-Care Additional Instructions: You were seen in our Emergency Department today for treatment of a behavioral health issue. It is important after your visit that you follow up with either your behavioral health provider or a primary care doctor within 7 days.? If you have trouble finding a therapist you can reach out to [address] [phone] [facility] can be reached 7 days a week 24 hours a day.? Call [phone] to speak with someone.? Return for any worsening symptoms or concerns such as thoughts of self harm or harm to others. Please call 911 if you feel your mental health is worsening.? Prescriptions: No Action pramipexole 0.5 mg tablet 0.5 mg PO BEDTIME Qty: 30 0RF quetiapine [Seroquel] 300 mg Tablet 300 mg PO BEDTIME quetiapine [Seroquel XR] 50 mg tablet extended release 24 hr 100 mg PO BEDTIME Qty: 30 0RF benztropine [Cogentin] 0.5 mg Tablet 0.5 mg PO TID PRN (Reason: Muscle stiffness) Rx Instructions: Patient stated she is not taking this medication. The medication was never picked up per pharmacy. lorazepam 0.5 mg tablet 0.5 mg PO BID PRN (Reason: anxiety) Qty: 20 0RF lamotrigine 25 mg tablet 25 mg PO DAILY 14 Days Qty: 14 0RF quetiapine 50 mg tablet 50 mg PO BID Qty: 30 0RF dextroamphetamine-amphetamine [Adderall XR] 5 mg capsule,extended release 24hr 5 mg PO QAM Qty: 14 0RF Rx Instructions: Partial Fill upon patient request. Interventions: Gem-Suicide Risk Severity Scale Last Done: 12/02/24 13:29 ED Discharge Assessment Last Done: 12/02/24 21:13 Discharge Date/Time: 12/02/24 21:14 Print Language: Tamazight
[2024-12-02 13:49] LABS: MANUAL DIFF FLAG NO
[2024-12-02 13:51] LABS: Hematocrit 40.5 % (37.0-47.0); Hemoglobin 14.0 g/dl (12.0-16.0); Imm Gran Abs Auto 0.02 X10*3/uL (0.00-0.03); Imm Gran Pct Auto 0.2 % (0.0-0.4); Lymphocytes Absolute Auto 2.2 X10*3/uL (1.2-4.9); Mean Corpuscular HGB Conc 34.6 g/dl (31.0-35.0); Mean Corpuscular Hemoglobin 31.5 pg (27.0-33.0); Mean Corpuscular Volume 91.0 fL (80.0-98.0); NRBC Abs Auto 0.000 X10*3/uL (0.0-0.012); NRBC Pct Auto 0.0 /100WBC (0.0-0.2); Platelet Count 226 X10*3/uL (160-400); Red Blood Count 4.45 X10*6/uL (4.20-5.50); White Blood Count 8.1 X10*3/uL (4.8-10.8)
[2024-12-02 13:59] LABS: Carbon Monoxide POC 2.3 %
--- OUTSIDE RECORDS SUMMARY | 2024-12-02 14:06 | XMS_ITS | Clinical Summary ---
Author Organization [facility] Address [address] [place] [address] Phone Care Team Providers Care Zigzagger Name Role Phone Leandra Stephens MD Primary Care Provider [phone] Allergies No known active allergies Medications lamoTRIgine [...] DX:Anxiety; COMMENT: Comments: psych at [facility] [place] Comments: psych at [facility] [place] Hypertriglyceridemia 01/01/2018 Overview (05/27/2024): DX:Hypertriglyceridemia Insomnia 01/01/2018 [...] (BMI) of 45.0 to 49.9 in adult ([facility] V24, [facility] V28) Overview (05/27/2024): DX:Class 3 severe obesity due to excess calories with serious comorbidity and body mass index (BMI) of 45.0 to 49.9 in adult ([facility]) Encounters Date Type Department Care Team Description 11/05/2024 Lab Requisition [facility] - Main Lab [address] [place] [address] Phyllis Zacarias FNP Other assisted (current) drug therapy 11/05/2024 Lab Requisition [facility] - Main Lab [address] [place] [address] Phyllis Zacarias FNP from Last 3 Months Immunizations Name Administration Dates Next Due Hepatitis B (Fiivnuj-K-Quygi , Recombivax HB-Adult) 19yo and older 04/17/2017,03/17/2017 Tdap Tetanus diptheria acell ular pertussis (Boostrix; Adacel) 7yo and older 05/10/2009 Surgical History Surgery Date Site/Laterality Comments WISDOM TOOTH EXTRACTION 2009 PROCEDURE: HISTORICAL WISDOM TEETH EXTRACTION CHOLECYSTECTOMY PROCEDURE: HISTORICAL CHOLECYSTECTOMY; COMMENT: lap sung Medical History Medical History Date Comments Morbid obesity with BMI of 4 0.0-44.9, adult ([facility] V24, [facility] V28) 07/03/2005 DX:Morbid obesity wit h BMI of 40.0-44.9, adult ([facility]) Deliberate self-cutting 07/03/2017 DX:Delib erate [...] 01/01/2018 DX:Anxiety; COMM ENT: Comments: psych at [facility] in [place] GERD (gastroesophageal reflux disease) 02/11/2017 DX:GERD (gastroesophageal reflux disease) Paresthesias 07/06/2017 DX:Paresthesias; COMMENT: Comments: likely due to anxiety Left ankle injury 01/01/2018 DX:Left ankle injury Hypertriglyceridemia 01/01/2018 DX:Hypertri glyceridemia Class 3 severe obesity due t o excess calories with serious comorbidity and body mass index (BMI) of 45.0 to 49.9 in adult ([facility] V24, [facility] V28) 03/17/2019 DX:Class 3 severe obesity d ue to excess calories with serious comorbidity and body mass index (BMI) of 45.0 to 49.9 in adult ([facility]) Obesity 05/04/2019 DX:Obesity Family History [...] TUBE Routine 11/05/2024 7:00 AM EDT Other assisted (current) drug therapy URINALYSIS WITH REFLEX MICROSCOPIC Routine 11/05/2024 7:00 AM EDT Other long distance operator (current) drug therapy URINALYSIS WITH REFLEX MICROSCOPIC Routine 11/05/2024 7:00 AM EDT Other long distance operator (current) drug therapy CHLAMYDIA TRACHOMATIS AND NEISSERIA GONORRHOEAE PCR Routine 11/05/2024 7:00 AM EDT Other assisted (current) drug therapy TRICHOMONAS, URINE Routine 11/05/2024 7: 00 AM EDT Other long distance operator (current) drug therapy COMPREHENSIVE METABOLIC PANEL STAT 05/18/2024 1:53 PM EST LIPID PANEL Routine 01/06/2021 HM PAP SMEAR Routine 06/06/2009 from Last 3 Months or Most Recently Relevant to Health Maintenance Results * (ABNORMAL) Urinalysis with reflex microscopic (11/05/2024 7:00 AM EDT) Specific [place] Urine 1.023 1.003 - 1.030 LAB URINALYSIS - AUTOMATED METHOD 11/05/2024 11:35 AM [facility] pH, Urine 5.5 5.0 - 8.0 pH LAB URINALYSIS - AUTOMATED METHOD 11/05/2024 11:35 AM [facility] Leukocytes, Urine Small(A) Negative LAB URINALYSIS - AUTOMATED METHOD 11/05/2024 11:35 AM [facility] Nitrite, Urine Negative Negative LAB URINALYSIS - AUTOMATED METHOD 11/05/2024 11:35 AM [facility] Protein, Urine Negative <=Trace mg/dL LAB URINALYSIS - AUTOMATED METHOD 11/05/2024 11:35 AM [facility] Glucose, Urine Negative Negative mg/dL LAB URINALYSIS - AUTOMATED METHOD 11/05/2024 11:35 AM [facility] Ketones, Urine 15(A) Negative mg/dL LAB URINALYSIS - AUTOMATED METHOD 11/05/2024 11:35 AM [facility] Urobilinogen, Urine 1.0 0.2 - 1.0 mg/dL LAB URINALYSIS - AUTOMATED METHOD 11/05/2024 11:35 AM [facility] Bilirubin, Urine Negative Negative LAB URINALYSIS - AUTOMATED METHOD 11/05/2024 11:35 AM [facility] Blood, Urine Negative Negative LAB URINALYSIS - AUTOMATED METHOD 11/05/2024 11:35 AM EDT [facility] RBC, Urine 1.0 0 - 4 /HPF LAB URINALYSIS - AUTOMATED METHOD 11/05/2024 11:35 AM EDT [facility] WBC, Urine 5.2(H) 0 - 4 /HPF LAB URINALYSIS - AUTOMATED METHOD 11/05/2024 11:35 AM EDT [facility] Squamous Epithelial, Urine >100(H) 0 - 60 /LPF LAB URINALYSIS - AUTOMATED METHOD 11/05/2024 11:35 AM EDT [facility] Bacteria, Urine Few(A) Negative /HPF LAB URINALYSIS - AUTOMATED METHOD 11/05/2024 11:35 AM EDT [facility] Hyaline Casts, Urine 0.0 0 - 3 /LPF LAB URINALYSIS - AUTOMATED METHOD 11/05/2024 11:35 AM T [facility] Urine Urine specimen obtained by clean catch procedure / Unknown Non-blood Collection / Unknown 11/05/2024 7:00 AM EDT 11/05/2024 10:56 AM EDT us Phyllis Zacarias [facility] URINE ORDERABLES Final Result [facility] [address] [place] [address], [place] [phone] * Davis urine culture tube (11/05/2024 7:00 AM EDT) Extra Tube Hold for add-ons. 11/05/2024 1:01 PM EDT [facility] Comment:Auto resulted. Urine Urine specimen obtained by clean catch procedure / Unknown Non-blood Collection / Unknown 11/05/2024 7:00 AM EDT 11/05/2024 11:11 AM EDT us Phyllis Zacarias [facility] URINE ORDERABLES Final Result [facility] [address] [place] [address], [place] [phone] * Trichomonas, urine (11/05/2024 7:00 AM EDT) Pathologist [facility] Trichomonas, Urine None Seen None Seen 11/05/2024 11:35 AM EDT [facility] Urine Urine specimen obtained by clean catch procedure / Unknown Non-blood Collection / Unknown 11/05/2024 7:00 AM EDT 11/05/2024 10:56 AM EDT us Phyllis Zacarias [facility] MICROBIOLOGY - GENERAL ORDERABLES Final Result Performing Organization Address [facility]/ZIP Co de Phone Number [facility] [address] [place] [address], [place] [phone] * Chlamydia trachomatis and Neisseria gonorrhoeae molecular study (11/05/2024 7:00 AM EDT) [facility] Neisseria gonorrhoeae PCR Negative Negative LAB MOLECULAR DIAGNOSTICS METHOD 11/05/2024 2:41 PM EDT [facility] Chlamydia trachomatis PCR Negative Negative LAB MOLECULAR DIAGNOSTICS METHOD 11/05/2024 2:41 PM EDT [facility] Swab Cervix uteri structure / Unknown Non-blood Collection / Unknown 11/05/2024 7:00 AM EDT 11/05/2024 10:56 AM EDT us Phyllis Zacarias [facility] MICROBIOLOGY - GENERAL ORDERABLES Final Result Performing Organization Address City/[facility]/ZIP Co de Phone Number [facility] [address] [place] [address], [place] [phone] * Comprehensive metabolic panel (05/18/2024 1:53 PM EST) [facility] Sodium 137 133 - 145 mmol/L LAB CHEMISTRY METHOD 05/18/2024 2:45 PM [facility] Potassium 3.9 3.5 - 5.5 mmol/L LAB CHEMISTRY METHOD 05/18/2024 2:45 PM [facility] Chloride 106 96 - 110 mmol/L LAB CHEMISTRY METHOD 05/18/2024 2:45 PM [facility] CO2 27 21 - 32 mmol/L LAB CHEMISTRY METHOD 05/18/2024 2:45 PM [facility] Anion Gap 4 3 - 11 LAB CHEMISTRY METHOD 05/18/2024 2:45 PM [facility] Glucose 92 70 - 100 mg/dL LAB CHEMISTRY METHOD 05/18/2024 2:45 PM [facility] BUN 9 5 - 25 mg/dL LAB CHEMISTRY METHOD 05/18/2024 2:45 PM [facility] Creatinine 0.79 0.50 - 1.10 mg/dL LAB CHEMISTRY METHOD 05/18/2024 2:45 PM [facility] eGFR 97 >=60 mL/min/1. 73m2 LAB CHEMISTRY METHOD 05/18/2024 2:45 PM [facility] Comment:Calculation based on the Chronic Kidney Disease Epidemiology Collaboration (CKD-EPI) equation refit without adjustment for race. BUN/Creatinine Ratio 11.4 LAB CHEMISTRY METHOD 05/18/2024 2:45 PM [facility] Calcium 9.4 8.5 - 10.5 mg/dL LAB CHEMISTRY METHOD 05/18/2024 2:45 PM [facility] AST (SGOT) 37 10 - 42 unit/L LAB CHEMISTRY METHOD 05/18/2024 2:45 PM [facility] ALT (SGPT) 50 10 - 60 unit/L LAB CHEMISTRY METHOD 05/18/2024 2:45 PM [facility] Alkaline Phosphatase 100 42 - 121 unit/L LAB CHEMISTRY METHOD 05/18/2024 2:45 PM [facility] Total Protein 7.3 6.0 - 8.0 g/dL LAB CHEMISTRY METHOD 05/18/2024 2:45 PM EST [facility] Albumin 4.3 3.2 - 5.0 g/dL LAB CHEMISTRY METHOD 05/18/2024 2:45 PM EST [facility] Total Bilirubin 0.5 0.0 - 1.4 mg/dL LAB CHEMISTRY METHOD 05/18/2024 2:45 PM EST [facility] Blood Venous blood specimen / Unknown Venipuncture / Unknown 05/18/2024 1:53 PM EST 05/18/2024 1:59 PM EST Christopher Holbrook DO LAB BLOOD ORDERABLES Final Result [facility] [address] [place] [address], * Lipid panel (01/06/2021) LDL/HDL Ratio 0 [...] Most Recently Relevant to Health Maintenance Insurance [facility] Member Subscriber Plan / Payer (Ef fective 2019-Present) Name:JOSÉ LUIS SOUZA Relation to Subscriber:Self Name:José Luis Souza Payer ID:[id number] Group ID:[id number] Type:Not on file Address: [facility] [address] [address] Advance Directives Documents on File Type Date Recorded Patient Patient Portal Concierge Expl anation Health Care Decision (hx) 11/20/2015 [...] (hx) 11/20/2015 AD POLO DIRECTIVE Care Teams Zigzagger Relationship Specialty Start Date End Date Leandra Stephens MD [address] [place] [address] PCP - General Internal Medicine 03/16/16
--- OUTSIDE RECORDS SUMMARY | 2024-12-02 14:06 | XMS_ITS | Clinical Summary ---
Author Organization [facility] Address [address] [place] [address] Care Team Providers Care Electrical Automation Engineer Name Role Phone Homero Nuno Primary Care Provider [phone] Allergies Active Allergy Reactions Criticality Noted Date [...] Plan (08/03/2023 1:25 PM EDT): Home Medications: Cypress 300 mg twice daily. Ativan 0.5 mg [...] intentional OD. Then discharged her to an [facility] (inpatient psychiatric facility). The patient reported that she has continuously felt very depressed while at this facility, and that this led to suicidal thoughts and her attempted overdose and toxic ingestion. -Start Prozac 10mg PO qAM -Start Seroquel 50mg BID PRN for anxiety, agitation -Continue Hydroxyzine 10 mg -Hold Cypress, Ativan -See intentional OD section -Pending vitamin D level -Patient requesting placement at inpatient psychiatric facility other than [facility] -Psychiatry, Social work following Assessment & Plan (07/29/2023 12:50 AM EDT): Home Medications: Cypress 300 mg twice daily. Ativan 0.5 mg [...] her to an inpatient psych facility in [facility]. I contacted this facility and confirmed she was only taking Cypress 300 mg twice daily while she was there. See intentional OD section. She also intentionally, overtook her Cypress, Ativan, and Hydroxyzine while inpatient. She is unable to identify a trigger or why she felt this way. She says she has been feeling this way for a while. -Hold home Cypress 300 mg twice daily. -Hold home hydroxyzine [...] Patient presents from inpatient psych facility in [place]. For which she has been admitted at for two weeks. Prior to this she was [facility] for a suicide attempt as well. The morning prior to admission, she drank 2 gulps of Cloudantx TB disinfectant wheat cleaner. She then returned it to the staff. While there, she had 2 episodes of vomiting, has not been able to tolerate PO. She also reported that she took 4-5 pills of lithium, ativan, and hydroxyzine each also in a suicide attempt. Admitting team called facility who confirmed she was on Cypress 300 mg twice daily, Ativan 0.5 mg PRN and Hydroxyzine 10 mg PRN, unclear how she obtained extra medication. Complained of throat pain and L sided abdominal pain on presentation. Denied fever or chills. Denied bloody BM. Denied hemoptysis. EKG showed NSR. QTC 405. Labs were remarkable for elevated LFTs, Lipase was 60. Acetaminophen level was <10.0. Cypress level was 0.2. CXR negative for acute [...] two weeks. Prior to this she was [facility] for a suicide attempt as well. Per patient, she overdosed on her prior home medications : Seroquel, Haldol, Effexor. They discharged her off those medications. And per med list at [place] facility, she is currently just on Cypress 300 mg twice daily. Today, 07/28, around 11 AM, she states the cleaning crew at her facilty left behind a bottle of Virex TB disinfectant wheat cleaner. She saw it and she took two gulps of it. She then returned it to the staff. And later, around 4pm , she told them she drank some of it. She presents today, On S21 from [place]. While here, she had 2 episodes of vomiting, has not been able to tolerate PO. Complains of throat pain and L sided abdominal pain. EKG shows NSR. QTC 405. She also tells me on Thursday she took 4-5 pills of lithium, ativan, and hydroxyzine each also in a suicide attempt. I called her facility, they do confirm she is on Cypress 300 mg twice daily, Ativan 0.5 mg [...] Lipase was 60. Acetaminophen level was <10.0. Cypress level was 0.2. CXR negative for acute [...] complete this topic Procedures * Due to [place] law, this organization might not be sharing negative HIV tests. Procedure Name Priority Date/Time Associated Diagnosis Comments BASIC METABOLIC PANEL Routine 08/03/2023 7:22 AM EDT from Last 3 Months or Most Recently Relevant to Health Maintenance Results * Due to [facility] law, this organization might not be sharing negative HIV tests. * (ABNORMAL) Basic metabolic panel (08/03/2023 7:22 AM EDT) NA 139 135 - 145 mmol/L 08/03/2023 9:04 AM EDT [facility] K 3.4(L) 3.5 - 5.3 mmol/L 08/03/2023 9:04 AM EDT [facility] Cl 105 97 - 110 mmol/L 08/03/2023 9:04 AM EDT [facility] CO2 25 24 - 32 mmol/L 08/03/2023 9:04 AM EDT [facility] BUN 8 7 - 23 mg/dL 08/03/2023 9:04 AM EDT [facility] Creatinine 0.66 0.50 - 1.20 mg/dL 08/03/2023 9:04 AM EDT [facility] Glucose 79 70 - 99 mg/dL 08/03/2023 9:04 AM EDT [facility] Calcium 9.1 8.7 - 10.7 mg/dL 08/03/2023 9:04 AM EDT [facility] Anion Gap 9 5 - 15 08/03/2023 9:04 AM EDT [facility] eGFR >90 >=60 mL/min/1. 73m2 08/03/2023 9:04 AM EDT [facility] Comment:The estimated glomer ular [...] MD LAB BLOOD ORDERABLES Final Re sult [facility] [address] [place] [address], from Last 3 Months or Most Recently Relevant to Health Maintenance Insurance [facility] Advance Directives Documents on File Type Date Recorded Patient Stake Setter Expl anation Health Care Proxy 07/31/2023 1:55 [...] 10:50 PM 08/04/2023 2:40 PM Care Teams Electrical Automation Engineer Relationship Specialty Start Date End Date Homero Nuno [address] [place] [id number] PCP - General 07/28/23
--- OUTSIDE RECORDS SUMMARY | 2024-12-02 14:06 | XMS_ITS | Clinical Summary ---
Author Organization [facility] Address [address] [place] [address] Care Team Providers Care Staff Air Tactical Officer Name Role Phone Unavailable Primary Care Provider [...] Date End Date Status buPROPion 450 MG [id number]:Bety r Depressive Disorder Take 450 mg by [...] Advance Directives For more information, please contact: [phone] Latest Code Status on File Code Status Date Activated Date Inactivated Comments Full Code 01/06/2021 2:17 AM 02/01/2021 6:17 PM This code status was ascertained in the following way: per unit protocol.
--- OUTSIDE RECORDS SUMMARY | 2024-12-02 14:06 | XMS_ITS | Encounter Summary ---
Author Organization [facility] Address [address] [place] [phone] Phone Care Team Providers Care Web Page Designer Name Role Phone Leandra Stephens MD Primary Care Provider Encounter Details Date Type Department Care Team (Late st Contact Info) Description 02/26/2023 Procedure Pass [facility], Ct Scan - [address] [address] Social History Tobacco Use Types Packs/Day Years [...] 02/26/2023 6:41 AM Jeanne Patel RN * [place] Suicide Severity Rating Scale (Screener/Recent Self-Report) Question [...] on filedocumented in this encounter Care Teams Web Page Designer Relationship Specialty Start Date End Date Leandra Stephens MD [address] [facility] [address] [place] [address] PCP - General Internal Medicine 02/26/23 documented as of this encounter Additional Source Comments The information contained in this document represents components of the legal health record. It is not the complete legal health record.[facility]
[2024-12-02 14:07] LABS: Acetaminophen LAB < 3 mcg/mL (<30); Alanine Aminotransferase 26 U/L (0-31); Albumin Level 4.1 g/dL (3.5-5.0); Alkaline Phosphatase 95 U/L (39-117); Anion Gap 13 (12-20); Aspartate Amino Transferase 20 U/L (5-31); Blood Urea Nitrogen 4 mg/dL (9-16); Calcium 8.7 mg/dL (8.4-10.2); Carbon Dioxide 22 mmol/L (22-29); Chloride 110 mmol/L (96-108); Creatinine Clr Calc Pharmacy 125.4; Estimated Glomerular Filt Rate > 60; Potassium 3.6 mmol/L (3.3-5.1); Salicylate < 5.0 mg/dL (15-30); Sodium 141 mmol/L (135-145); Total Protein 6.6 g/dL (6.5-8.0)
[2024-12-02 15:15] LABS: Appearance Urine Clear; Glucose Urine UA Negative (Negative); PH 5.5 (5.0-9.0); Specific Gravity - Urine <= 1.005 (1.005-1.025)
[2024-12-02 15:25] LABS: UPreg QC Valid YES
[2024-12-02 15:26] LABS: Cannabinoid Screen Urine Not Detected (Not Detect)
--- NOTE | 2024-12-02 19:38 | MHC.CARE ---
CARE team spoke with Twyla at [facility]. she reports there are no [facility] beds available but they may have availability early next week.
--- NOTE | 2024-12-02 19:41 | MHC.CARE ---
Osteopathic Neurologist spoke with at [facility], [place], she reports there are open beds but there is no one currently working who can approve or deny.
--- NOTE | 2024-12-02 20:39 | PC.NURSE ---
Plan to discharge, per CARE team (Chelle Whatley).
[2024-12-02 21:13] VITALS: BP 117/75; PULSE 94; RESP 16; TEMP 36.4; O2SAT 98
== END 2024-12-02 21:14 | disposition home or self-care (01) ==
PROVIDERS: Physician Assistant; Emergency Provider Emergency Medicine; PCP Hospitalist
DX: F32.A Depression, unspecified (principal); F43.10 Post-traumatic stress disorder, unspecified; I10 Essential (primary) hypertension; G47.33 Obstructive sleep apnea (adult) (pediatric); K21.9 Gastro-esophageal reflux disease without esophagitis; Z79.899 Other long term (current) drug therapy
CPT/HCPCS: 36415; 80053; 80143; 80179; 80307; 81003; 81025; 82375; 85025; 99284; 99285; S9485

== ENCOUNTER 2024-12-02 14:45 | Outpatient (RCR) | payer OTHER, SELFPAY ==
[2024-11-22 09:34] VITALS: BMI 38.0
[2024-11-22 09:35] VITALS: BP 108/66; PULSE 96; TEMP 36.7
--- NOTE | 2024-11-22 13:25 | PC.NURSE ---
Archana stopped taking all of her medications prior to SA via overdose. Stated while inpatient at [facility] she refused to go back on those medications and would only agree to Seroquel 300 mg at HS and Pramipexole 0.5 mg at bedtime which she stated she is taking. She has a history of being of Celexa 15 mg last filled 10/03 #45, Haldol last filled 07/19/24 #30, Benzotropine 0.5 TID never picked up, Lamictal 100 mg at HS never picked up on 10/18/24, Prazosin 2 mg at HS last filled 10/03 #30. She is currently living with her sister for the past month and she stated her sister is holding on to her medications as a precaution. Dr. August is aware.
--- NOTE | 2024-11-22 13:33 | PC.ADMIT ---
Patient is a 39 year old single female who self referred to [facility] on the suggestion of her [facility] worker. Patient reports she has a [facility] worker Michela Cancino who suggested patient come to [facility] as patient has attended [facility] in the past. Patient reportedly overdosed on her medications two weeks ago secondary to the anniversary of her mothers . Patient has a history of chronic SI and a history of many SA via overdose on medication. Patient stated she stopped taking all of her prescription medications prior to hospitalization. Patient stated she overdosed on her medications then called am ambulance however she does not remember calling. Stated she was on a medical floor for a few days at [facility] then was transferred to [facility] inpatient LOC afterwards. Patient stated while in the hospital she refused to go on any of her previous medication prescriptions including Citalopram, Lamictal, benzotropine, haldol, and Prazosin. She reports she is only taking Seroquel and Pramipexole. Patient also stated that her sister whom she is currently living with for the past month is holding on to her medications as a precaution. Updated medication list with patient's pharmacy and patient. Patient identified her family dad and both sisters are supportive. Patient is unemployed and denied having any day structure. Patient is alert and oriented x4. She is calm and cooperative. She presented with depressed mood and anxious affect. When asked about SI patient stated, I just have I guess they call it chronic suicidal thoughts Patient denied any active plans or intent to kill herself. She was given a copy of her safety plan if needed.
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
--- NOTE | 2024-11-23 11:56 | PC.NURSE ---
Dr. Denton increased Seroquel from 300 mg to 400 mg at HS. (New prescription for Seroquel 100 mg at HS to be added to 300 mg tab). Angelica gave me permission to call her sister Zainab with Angelica present to let her know there is a new medication Seroquel 100 mg tab to be taken with the 300 mg Seroquel tab at bedtime. Zainab keeps Angelica's medications in a locked box. Reviewed medication information with Starr via phone call with Angelica present.
--- NOTE | 2024-11-23 14:24 | HO.PHP ---
11/23/2024 This sheet writer was asked to meet with the patient to assess her mental status. It was reported that the patient endorsed suicidal ideation. The patient has a hx of multiple suicide attempts. This sheet writer met with the patient,she acknowledged that she endorsed suicidal ideation without a plan or intent. The patient stated that she experiences suicidal ideation daily it is chronic for her. This sheet writer asked the patient if she was experiencing a crisis,she stated she is not. Pt stated that she is tired,she did not sleep well. The patient stated that she feels safe and that her sister,who she resides with,holds the patients medication. Ayaka Moon,[facility]
--- NOTE | 2024-11-24 13:48 | HO.PHP ---
On 11/24/2024,this physician underwriter was asked to meet with the patient because she was requesting to meet with someone. This physician underwriter met with the patient,she reported that she was hoping to speak with the psychiatrist today but was unavailable this afternoon. The patient stated she was concerned because the psychiatrist prescribed a new medication but the pharmacy did not have it. The patient reported that she has a great deal of anxiety,she hasn't been able to sleep. She also stated that she has a to go to tomorrow that she is feeling anxious about. This physician underwriter asked the [facility] nurse to speak with the patient regarding her concerns regarding the medication issue. The nurse met with the patient regarding the patient's concerns. Ayaka Moon,[facility] Behavioral Health Clinician III
--- NOTE | 2024-11-24 13:53 | HO.PHP ---
[facility] staff member met with Angelica after the third group to assess safety. Angelica continued to state that she has SI thoughts and thoughts of a plan, without any intent. Angelica disclosed that this has been a constant for her. PHP staff member explored what the plan is, Angelica first expressed that she didn't want to discuss it but then did share the thoughts around a plan are to be recklessly driving and she doesn't care what the consequences are or overdosing due to feeling as though she is a burden. PHP staff member asked Angelica what stops her from acting on those thoughts and she disclosed her family. PHP staff member asked Angelica if she lives along, Angelica said she lives with her sister and her sisters children. Angelica expressed that after program she is going to spend time on her back deck with her dogs.
--- NOTE | 2024-11-24 15:58 | PC.NURSE ---
Angelica stated she was not able to pickling solution maker the prescription Seroquel as the pharmacy told her it needed a PA. Dr. Denton is aware. I asked Angelica for now, as a precaution, could her sister pickling solution maker her medications at the pharmacy. Angelica agreed. We called her sister Starr together who agreed this is a good idea. Zainab plans on picking up prescriptions for Angelica as a precaution moving forward. Angelica reports SI however denied any active plans or intention of killing herself. 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 She reports this is creating much anxiety for her. Processed with staff about whether or not she should go. She stated she would feel guilty if she did not go. She is planning on having her daughter go with her. She also stated she has a problem with her finances as she has a gambling problem specifically with scratch tickets and would like more support surrounding this. I told her there were gambling anonymous groups online that she could participate in for more support. Angelica also asked if we could provide a note for her for work stating that she has been attending the program and I told her we could do that once she discharges from the program.
--- NOTE | 2024-11-24 16:20 | HO.PHP ---
Patient's case was opened during team meeting today
--- NOTE | 2024-11-28 19:42 | HO.PHPPROGNO ---
Subjective Subjective Date of Service: 11/28/24 Reason For Visit: MDD,overdose Interim History: Patient seen for follow up. FEeling very depressed, worrying, lack of appetite just feeling so low... so much anxiety Has been having panic attacks on and off. Has taken Seroquel prn which takes the edge off, but doesnt really fully go away Sleep varies, getting up to 4 hrs last night. Sometimes will oversleep after a few nights of poor sleep. COntiues to endorse chronic SI with various plans, no intention. Says this is no worse and does not feel she would act on this today. Medication Compliance: Intermittent Side effects from medications: No Attending Groups: Yes Review of Systems Acute medical concerns: No Mental Status Exam Mental Status Exam Narrative: Alert, oriented, in no acute distress. Calm, cooperative, engaged. Eye contact maintained. Mood depressed, affect sad, moments of tearfulness. Speech normal. Thought process linear, coherent, ruminative. Thought content related to stressors, loss of friend, feeling overwhelmed, also executive dysfunction complaints, some transient SI (situational) intrusive thoughts of driving off road or self-strangulation, no precipitated plan, denies intention to end life. Able to cite protective factors. Denies any aggressive ideation. Denies urge or intention to harm self or others. No paranoia or delusional content elicited. No evidence of psychosis. Insight and judgment fair but adequate. Diagnostics Vital Signs (24Hr): BMI result Body Mass Index 38.0 Assessment & Plan Assessment & Plan (1) Persistent depressive disorder with anxious distress, currently severe: Status: Acute Code(s): F34.1 - Dysthymic disorder (2) Other specified episodic mood disorder: Status: Acute Code(s): F39 - Unspecified mood [affective] disorder (3) PTSD (post-traumatic stress disorder): Status: Acute Code(s): F43.10 - Post-traumatic stress disorder, unspecified (4) Pain disorder associated with psychological and physical factors: Status: Acute Code(s): F45.42 - Pain disorder with related psychological factors (5) Learning disabilities: Status: Acute Code(s): F81.9 - Developmental disorder of scholastic skills, unspecified Plan Discharge from [facility] start lamotrigine 25 mg qd continue Wellbutrin XL 150 mg qAM (poorly tolerated @300 mg, dose returned to 150 mg) continue citalopram 40 mg qhs continue pramipexole 0.5 mg QHS continue lorazepam 0.5 mg twice daily PRN anxiety continue Haldol 2 mg to BID PRN severe anxiety/agitation continue Seroquel 300 mg qhs add Seroquel 25-50 XR mg bid prn anxiety discont fluoxetine, propranolol (ineffective) Refills sent to pharmacy Will defer further medication management to outpatient provider *Safety plan reviewed *Discharge Diagnoses reviewed with patient, as well as treatment course, discharge plan (including medication regime, medication management, potential side effects) as well as treatment rationale were also revisited *If patient wishes, they are welcome to have their outpatient provider reach out to me for any further questions or clarification as pertains to this patient?s clinical care/treatment during their stay at [facility] (contact information provided to patient)? Patient educated on: diagnosis and medication risk/benefits Informed Consent: understands Reason for contiued partial hosp. stay Substantial Risk for: stable for discharge and rapid decompensation Certification I certify that partial hospital treatment is medically necessary due to the symptoms and problems resulting from the patient's mental illness and the failure to treat the patient at the partial hospital level of care would likely result in the patient requiring inpatient psychiatric care which could not be prevented at a less intensive level of care. Total time managing care of this patient today ____ minutes. Discharge Plan Discharge Attending provider: Darcy Denton Medications: Continued pramipexole 0.5 mg tablet 0.5 mg PO BEDTIME Qty: 30 0RF dextroamphetamine-amphetamine [Adderall XR] 5 mg capsule,extended release 24hr 5 mg PO QAM 14 Days Qty: 14 0RF Rx Instructions: Partial Fill upon patient request. quetiapine [Seroquel] 300 mg Tablet 300 mg PO BEDTIME 14 Days Qty: 14 0RF lamotrigine 25 mg tablet 25 mg PO DAILY 14 Days Qty: 14 0RF lorazepam 0.5 mg tablet 0.5 mg PO BID PRN (Reason: anxiety) 14 Days Qty: 28 0RF quetiapine 50 mg tablet 50 mg PO BID 14 Days Qty: 28 0RF Discontinued lamotrigine 25 mg tablet 100 mg PO BEDTIME Rx Instructions: Patient stated she is no longer taking this medication. Never picked up on 10/18/24. citalopram 10 mg tablet 15 mg PO DAILY Rx Instructions: Patient reports she is no longer taking this medication. Last filled 10/03/24 #45. haloperidol 2 mg tablet 2 mg PO BID PRN (Reason: anxiety attack) Rx Instructions: Last filled 07/19/24. Patient stated she is not longer taking this medication. prazosin 2 mg capsule 2 mg PO BEDTIME Rx Instructions: Patient stated she is not longer taking. Last filled 10/03/24. benztropine [Cogentin] 0.5 mg Tablet 0.5 mg PO TID PRN (Reason: Muscle stiffness) Rx Instructions: Patient stated she is not taking this medication. The medication was never picked up per pharmacy. Stand Alone Forms: Patient Portal Discharge page Patient Education: Depression (ED) Print Language: Chilean
--- NOTE | 2024-11-30 12:27 | HO.PHP ---
[facility] staff member followed up with Angelica due to her reporting thoughts of SI with plan and no intent. Angelica informed staff that it is the same plan that she has been reporting to us. [facility] staff member assessed if she had any intent to act on those plans. Angelica disclosed that she does not have any intent to act on it. Angelica shared that she is thinking about returning to work because she found having structure kept her mind busy/distracted. 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 [facility] staff member explored what she will be doing today after program. Angelica expressed that she has a dental appointment today and has errands she will be running. Angelica noted that she is safe and has no intent.
--- NOTE | 2024-11-30 14:20 | HO.PHP ---
Angelica waited to speak with a staff member after groups ended, in which she informed [facility] staff that she would like to discharge from the program because she is not seeing any improvements. [facility] staff member informed Angelica that she has only been here for a few days at this time and it is going to take time to see improvements. [facility] staff member explored with Angelica if she is able to come into program tomorrow and meet with Dr. Denton and if she still wants to discharge, we can move forward with it then. Angelica was in agreement but noted she has a meeting at 1:30 PM tomorrow and will have to step out. [facility] staff member was receptive. [facility] staff member asked Angelica if she is feeling safe to go home or if she feels she needs inpatient if she is not noticing improvements. Angelica said she is safe to go home and said inpatient was not helpful to her. Angelica noted that she will be in attendance to program tomorrow. [facility] staff member suggested if she does feel unsafe throughout the time between now and tomorrow, to please reach out to Crisis. Duartecasandraannmarie was in agreement.
--- NOTE | 2024-12-01 14:08 | PC.NURSE ---
Addendum entered by Samantha Rowell RN 12/01/24 15:03: Notified Alyssia Arellano from [facility] Care Team regarding the aformentioned information on Angelica. Addendum entered by Samantha Rowell RN 12/01/24 14:46: Spoke to Dispatcher Leesa at [place] [employer] to clarify Angelica's address is in [place] not [facility]. I also updated him with her plate number [id number] which dispatcher Mary confirmed is Angelica's car which is in [facility] parking lot. Also a description of patient was provided along with what she was wearing. [facility] security Sajan Gonzalez is aware. Original Note: Patient disclosed to [facility] staff that she is not feeling safe and has a plan to overdose or drive recklessly in a suicide attempt. She is unable to contract for safety. Reviewed information with Dr. Denton and a section 12 A obtained. Security was called and was present. Staff sat down and spoke to Angelica about getting assessed by crisis d/t safety concerns we had and asked her if she could walk down with staff to be evaluated however Angelica refused. Angelica took off from [facility] leaving her car in the parking lot. [place] [employer] dispatch were notified of the above situation and the section 12 A was faxed to the police department fax #[phone]. [place] police were given a description of her car, bright blue [employer] E[employer]. Laurie notified patients father and sister of the situation.
--- NOTE | 2024-12-01 17:17 | HO.PHP ---
[facility] staff member spoke to Angelica Kruse's [facility] worker to see if she was able to get a respite placement for Angelica. Twyla noted that she won't be able to review it until tomorrow with her supervisor melt house. Twyla did report she just got off the phone with Angelica who she has concerns about due to Angelica expressing feeling unsafe and stating that she needs respite so she does not hurt herself. [facility] staff member informed her due to concerns Angelica has been presenting while in program, we are going to recommend that she goes to get evaluated. Twyla was in agreement and asked if [facility] staff could provide an update in regards to what occurred. [facility] staff member was receptive.
--- NOTE | 2024-12-01 17:20 | HO.PHP ---
[facility] staff members, Laurie and Ayaka, met with Angelica to discuss concerns around her safety due to her reporting thoughts of SI with a plan and intent. [facility] staff members tried to encourage Angelica to go with us willingly to get evaluated. Angelica expressed that she is not willing to go. [facility] staff members explored why that is, in which she stated that it is not helpful and she was going to be starting new medications that she wanted to see if that helped first. [facility] staff member noted at this time because she is reporting a plan and intent, we would like for her to walk with us to get evaluated. She still was not willing to go with staff. Therefore, we informed her that we have her placed on a section so if she does not come with us willingly, then we will have to get security involved, which we don't want to do. Angelica said she didn't want to go. [facility] staff member Laurie stepped out to speak with Samantha who was already with security. While talking with them, Angelica tried to leave the building but we again tried to encourage her to go with us willingly. She then tried to take off but security placed hands on her. [facility] staff told them that our department is hands free so they let Angelica go. Security then said they believe on a section 12 they are able to go hands on for pt. safety. Therefore, we went to see if we could get Angelica but she had left the parking lot on foot and left her car there. [facility] staff members provided them with information on her car so they could stay by it if she tried to take off and [place] [employer] was contacted as well. [facility] staff member Ozzie went out on multiple occasions trying to locate Angelica with no success. In between trying to locate her, a phone call was made to her sister who she lives with and her father to see if they had heard from Angelica. Angelica's sister stated the last time she spoke to her was when she called to wake her up this morning and the father said the last time he spoke with her was last night. The father expressed concerns because she has never taken off on foot and left her car. Angelica's father also called back providing information around his granddaughter has an apple tag on Angelica and the last location was on [facility] at 2:34 PM, which at the time we were notified it had already been a half hour but we still went to search for her by foot and car with no success. The father reached back out around 4:30 PM stating that they had found her and he has her in the car now. [facility] staff member explored if the father is able to bring Angelica to the ER to get evaluated. The father said he doesn't think Leighan will go but he can talk with her. [facility] staff member strongly encouraged him to bring her since she is on a section 12 and the police may need to go to the home if she doesn't go voluntarily to the hospital. The father mentioned he will see what he can do and he noted they were on there way back. [facility] staff member was receptive. [facility] staff member then contacted [facility] to inform them that the father had located her and will be returning. [facility] staff member spoke with Braulio from [facility], who presented irritated because we were asking to make sure she does not take off in her car. Braulio said what would you like us to do because you guys told us it was hands off. [facility] staff member noted that Sajan had contacted Brian and got clarification that when someone is on a section they are able to go hands on for pt. safety and encouraged him to contact Sajan for clarification regarding protocols. Braulio then expressed what do you want us to do once we put her in a hold but he answered his own question and said they will call an ambulance. [facility] staff member was receptive. [facility] staff member then received a call from [facility] and spoke to Irvin who was seeking the father's number because he called stating that he was going to be here shortly and he hasn't arrived. [facility] staff member provided [facility] with the information since they were unable to locate the number on their end after he called. [facility] staff member received a call from Irvin from [facility] who said the father said he does not have Leighan and he does not know who provided them with that information. [facility] staff member said that she will reach out to the father. [facility] staff member spoke to the father to follow up around how Angelica is and if he was able to bring her to the ED. The father said she isn't doing good and he will be bringing her to the ED in 15 minutes. [facility] staff member was receptive. [facility] staff member notified [facility] and the care team. Security mentioned that they spoke to [place] [employer] who are going to have two cruisers in front of the hospital waiting for her to arrive. [facility] staff member was receptive.
--- NOTE | 2024-12-01 17:25 | HO.PHP ---
This bid writer, along with other [employer] [facility] [employer] staff searched [facility] parking lots, wooded areas and nearby neighborhoods for Angelica for roughly 2 hours, (2:30 to 4:30pm). Staff was unsuccessful in locating Angelica. A call was received shortly after by Angelica's father informing staff he located her, see note by Laurie Aragon.
--- NOTE | 2024-12-01 17:48 | HO.PHP ---
[facility] staff member followed up with the police department to inform them that [facility] has been located and being evaluated. The police department stated they were already aware and security informed them. [facility] staff member was receptive.
--- NOTE | 2024-12-02 11:31 | HO.PHP ---
[facility] staff member followed up with Angelica's [facility] worker, Twyla Cancino to update her in regards to if she was hospitalized. [facility] staff member informed Twyla that she was not placed inpatient and what had occurred in the process of trying to have her assessed.Twyla expressed her concerns to why they didn't place her inpatient. Twyla voiced that she has been working with Angelica and is struggling to find placement for her that is appropriate because the placements she has done in the past, she was still unsafe in and found ways to harm herself. [facility] staff member asked if she is able to work on placing her in a respite level of care. Twyla noted she is working on completing the paperwork but she won't be able to get placement for the weekend, therefore, paperwork won't be submitted till next week. Twyla feels as though she needs inpatient based off of the information that she has been reporting and is going to speak to the CARE team around her concerns. Twyla would like for us to continue coordinating care around safety for this pt.
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
--- NOTE | 2024-12-02 14:04 | HO.PHP ---
PHP staff member followed up with the [facility] worker, Twyla Cancino, to inform her that Angelica willingly walked down to the ED to see if she is able to obtain respite placement. Twyla was receptive and stated she has been encouraging her to go down as well today for that.
--- NOTE | 2024-12-02 14:57 | PC.NURSE ---
Following group around noon, Angelica met with Dr Pimentel r/t positive SI with a plan. She was willing at that time to go to [facility] ED to pursue respite. Tw called Tor in the Care team twice to let him know that she was in need of an eval r/t her SI statements, high risk history and presenting to ED from [facility] yesterday. [facility] staff walked [facility] to the ED voluntarily.
--- NOTE | 2024-12-02 18:13 | P.PNPSP_ITS ---
Subjective Subjective Date of Service: 12/02/24 Reason For Visit: MDD,overdose Interim History: Pt was evaluated by CARE team yesterday due to safety concerns (see SW and RN notes from yesterday). She returned home after the assessment and returned to [facility] today. The team asked me to see her today due to continued safety concerns. I met with pt this afternoon w/ Diagnostics Vital Signs (24Hr): BMI result Body Mass Index 38.0 Assessment & Plan Certification I certify that partial hospital treatment is medically necessary due to the symptoms and problems resulting from the patient's mental illness and the failure to treat the patient at the partial hospital level of care would likely result in the patient requiring inpatient psychiatric care which could not be prevented at a less intensive level of care. Total time managing care of this patient today ____ minutes. Discharge Plan Discharge Attending provider: Darcy Denton Medications: New quetiapine [Seroquel XR] 50 mg tablet extended release 24 hr 100 mg PO BEDTIME Qty: 30 0RF lorazepam 0.5 mg tablet 0.5 mg PO BID PRN (Reason: anxiety) Qty: 20 0RF lamotrigine 25 mg tablet 25 mg PO DAILY 14 Days Qty: 14 0RF quetiapine 50 mg tablet 50 mg PO BID Qty: 30 0RF Continued pramipexole 0.5 mg tablet 0.5 mg PO BEDTIME Qty: 30 0RF quetiapine [Seroquel] 300 mg Tablet 300 mg PO BEDTIME dextroamphetamine-amphetamine [Adderall XR] 5 mg capsule,extended release 24hr 5 mg PO QAM Qty: 14 0RF Rx Instructions: Partial Fill upon patient request. Discontinued lamotrigine 25 mg tablet 100 mg PO BEDTIME Rx Instructions: Patient stated she is no longer taking this medication. Never picked up on 10/18/24. citalopram 10 mg tablet 15 mg PO DAILY Rx Instructions: Patient reports she is no longer taking this medication. Last filled 10/03/24 #45. haloperidol 2 mg tablet 2 mg PO BID PRN (Reason: anxiety attack) Rx Instructions: Last filled 07/19/24. Patient stated she is not longer taking this medication. prazosin 2 mg capsule 2 mg PO BEDTIME Rx Instructions: Patient stated she is not longer taking. Last filled 10/03/24. No Action benztropine [Cogentin] 0.5 mg Tablet 0.5 mg PO TID PRN (Reason: Muscle stiffness) Rx Instructions: Patient stated she is not taking this medication. The medication was never picked up per pharmacy. Print Language: Ugandan
--- NOTE | 2024-12-05 14:54 | P.PNPSP_ITS ---
Subjective Subjective Date of Service: 12/05/24 Reason For Visit: MDD,overdose Interim History: Pt decided to discharge from the [facility] and came in today to review her d/c paperwork. She reports that her weekend went okay. She endorses chronic SI with thoughts to overdose or drive wrecklessly but denies any intent or plan to act o these thoughts. She reports that she would tell her sister if she felt unsafe, with whom she lives. She also works with [employer] and has a good rapport with her [employer] worker. Pt didn't go to respite over the weekend and she stayed home. She plans to see her outpatient psychiatrist and therapist within the next wk. Medication Compliance: Yes Side effects from medications: No Attending Groups: Yes (Pt attended groups during the [facility] admission) Review of Systems Acute medical concerns: No Medical Review of Systems: unchanged Review of Systems Psychiatric: Reports anxiety and Reports depression Mental Status Exam Mental Status Exam Narrative: Appearance: Well groomed, casual, good eye contact Motor activity: Calm. Steady gait. no tics, tremors or dyskinesias Speech is fluent and wnl in regards to rate tone and volume Mood is 'okay' Affect is somewhat anxious, constricted Thought process is goal directed, without evidence of formal thought disorder SI- see above. No imminent risk of harm to self. Denies any violent ideation. Future oriented. Plans to ask her PCP for return to work letter No evidence of psychosis Insight fair Judgment fair A/O x 3 Diagnostics Vital Signs (24Hr): BMI result Body Mass Index 38.0 Assessment & Plan Assessment & Plan (1) MDD (major depressive disorder), recurrent severe, without psychosis: Status: Acute Code(s): F33.2 - Major depressive disorder, recurrent severe without psychotic features (2) PTSD (post-traumatic stress disorder): Status: Acute Code(s): F43.10 - Post-traumatic stress disorder, unspecified (3) Persistent depressive disorder with anxious distress, currently severe: Status: Acute Code(s): F34.1 - Dysthymic disorder (4) Learning disabilities: Status: Acute Code(s): F81.9 - Developmental disorder of scholastic skills, unspecified Patient educated on: diagnosis, medication risk/benefits and therapeutic strategies Informed Consent: understands Reason for contiued partial hosp. stay Substantial Risk for: stable for discharge and other (Pt has chronic SI and h/o previous suicide attempt by overdosing. She is at increased risk of harm to self compared to the general population based on this history. Protective factors include her engagement w/ her support system, including her [employer] worker, outpatient providers and her sister.) Certification I certify that partial hospital treatment is medically necessary due to the symptoms and problems resulting from the patient's mental illness and the failure to treat the patient at the partial hospital level of care would likely result in the patient requiring inpatient psychiatric care which could not be prevented at a less intensive level of care. Total time managing care of this patient today _60___ minutes. Discharge Plan Discharge Attending provider: Darcy Denton Medications: Continued pramipexole 0.5 mg tablet 0.5 mg PO BEDTIME Qty: 30 0RF dextroamphetamine-amphetamine [Adderall XR] 5 mg capsule,extended release 24hr 5 mg PO QAM 14 Days Qty: 14 0RF Rx Instructions: Partial Fill upon patient request. quetiapine [Seroquel] 300 mg Tablet 300 mg PO BEDTIME 14 Days Qty: 14 0RF lamotrigine 25 mg tablet 25 mg PO DAILY 14 Days Qty: 14 0RF lorazepam 0.5 mg tablet 0.5 mg PO BID PRN (Reason: anxiety) 14 Days Qty: 28 0RF quetiapine 50 mg tablet 50 mg PO BID 14 Days Qty: 28 0RF Discontinued lamotrigine 25 mg tablet 100 mg PO BEDTIME Rx Instructions: Patient stated she is no longer taking this medication. Never picked up on 10/18/24. citalopram 10 mg tablet 15 mg PO DAILY Rx Instructions: Patient reports she is no longer taking this medication. Last filled 10/03/24 #45. haloperidol 2 mg tablet 2 mg PO BID PRN (Reason: anxiety attack) Rx Instructions: Last filled 07/19/24. Patient stated she is not longer taking this medication. prazosin 2 mg capsule 2 mg PO BEDTIME Rx Instructions: Patient stated she is not longer taking. Last filled 10/03/24. benztropine [Cogentin] 0.5 mg Tablet 0.5 mg PO TID PRN (Reason: Muscle stiffness) Rx Instructions: Patient stated she is not taking this medication. The medication was never picked up per pharmacy. Stand Alone Forms: Patient Portal Discharge page Patient Education: Depression (ED) Print Language: Qatari
--- NOTE | 2024-12-09 08:53 | PC.NURSE ---
Angelica called and left a message asking staff to fax her a letter for work indicating dates she attended [employer] [employer]. Reviewed with Angelica's clinician at [facility] Chelle.
== END 2024-12-02 23:59 | disposition home or self-care (01) ==
LOC: HO.PHPA 14:45
PROVIDERS: Visit Provider Psychiatry & Neurology Psychiatry
DX: F34.1 Dysthymic disorder (principal); F39 Unspecified mood [affective] disorder; F43.10 Post-traumatic stress disorder, unspecified; F45.42 Pain disorder with related psychological factors; F81.9 Developmental disorder of scholastic skills, unspecified; Z79.899 Other long term (current) drug therapy; Z91.51 Personal history of suicidal behavior
CPT/HCPCS: 90791; 90853